=== PATIENT | male | born 1965 | race American Indian/Alaskan Native ===

== ENCOUNTER 2017-10-12 09:30 | Emergency (ER) | payer MEDICAID ==
[2017-10-12 10:31] VITALS: BP 119/79
[2017-10-12] MEDS ORDERED: ASPIRIN PO ONE (10:46)
[2017-10-12 11:12] LABS: Mean Corpuscular HGB Conc 30 % (32-34); Mean Corpuscular Volume 75 fl (84-94); Platelet Count 187 K/mm3 (140-440); Red Blood Count 4.84 M/mm3 (3.65-5.03); Red Cell Distribution Width 17.3 % (13.2-15.2)
[2017-10-12 11:20] LABS: Mean Corpuscular Hemoglobin 23 pg (28-32)
[2017-10-12 11:22] LABS: Hemoglobin 10.9 gm/dl (11.8-15.2)
[2017-10-12 11:23] LABS: BUN/Creatinine Ratio 4; Blood Urea Nitrogen 3 mg/dL (9-20); Hemolysis Index 15
--- NOTE | 2017-10-12 11:44 | XRay Report ---
ROUTINE CHEST, TWO VIEWS: HISTORY: chest pain. The trachea, heart, mediastinal contour, lung ramirez and bony thorax are unremarkable. IMPRESSION: Unremarkable chest x-ray.
[2017-10-12 12:11] LABS: Anisocytosis 1+; Hypochromasia 2+; Platelet Estimate Consistent w Auto; Total Cells Counted 100
== END 2017-10-12 11:28 | disposition left against medical advice (07) ==
LOC: ED 09:30
DX: R07.9 Chest pain, unspecified (principal); Z53.21 Procedure and treatment not carried out due to patient leaving prior to being seen by health care provider
CPT/HCPCS: 36415; 71046; 80048; 84484; 85007; 85025; 93005; 93010

== ENCOUNTER 2017-11-30 19:37 | Emergency (ER) | payer MEDICAID ==
[2017-11-30 20:29] VITALS: BP 149/87
[2017-11-30] MEDS ORDERED: ZOFRAN ODT PO ONE (21:30)
[2017-11-30 21:44] LABS: Basophils % (Auto) 0.7 % (0.0-1.8); Eosinophils % (Auto) 0.7 % (0.0-4.3); Lymphocytes # (Auto) 2.2 K/mm3 (1.2-5.4); Lymphocytes % (Auto) 31.6 % (13.4-35.0); Mean Corpuscular HGB Conc 30 % (32-34); Mean Corpuscular Volume 72 fl (84-94); Monocytes # (Auto) 0.7 K/mm3 (0.0-0.8); Platelet Count 366 K/mm3 (140-440); Red Blood Count 4.69 M/mm3 (3.65-5.03); Red Cell Distribution Width 19.4 % (13.2-15.2)
[2017-11-30 21:49] LABS: Hematocrit 33.6 % (35.5-45.6); Hemoglobin 10.1 gm/dl (11.8-15.2); Mean Corpuscular Hemoglobin 22 pg (28-32)
[2017-11-30 22:09] LABS: Alanine Aminotransferase 20 units/L (7-56); Albumin 3.4 g/dL (3.9-5); BUN/Creatinine Ratio 14; Blood Urea Nitrogen 10 mg/dL (9-20); Calcium 8.8 mg/dL (8.4-10.2); Hemolysis Index 1; Lipase 39 units/L (13-60)
[2017-12-01 00:41] LABS: Bilirubin,Urine NEG (Negative); Blood,Urine NEG (Negative); Calcium Oxalate Crystals,Urine 1+; Color,Urine Yellow (Yellow); Hyaline Casts,Urine 13 /LPF; Mucus,Urine FEW /HPF; Sperm,Urine FEW /HPF (NP); Urobilinogen,Urine < 2.0 mg/dL (<2.0)
[2017-12-01] MEDS ORDERED: ZOFRAN IV ONE (07:32)
[2017-12-01] MEDS ORDERED: PEPCID IV ONE (07:32)
[2017-12-01] MEDS ORDERED: BENTYL IM ONE (07:32)
[2017-12-01] MEDS ORDERED: NACL 0.9% 1000 ML 1,000 ML IV ONE (07:32)
[2017-12-01] MEDS ORDERED: TORADOL IV ONE (07:32)
--- NOTE | 2017-12-01 07:35 | Emergency Department Report ---
ED Abdominal Pain HPI - General Chief Complaint: Abdominal Pain Stated Complaint: ABD PAIN Time Seen by Provider: 12/01/17 07:28 Source: patient Mode of arrival: Ambulatory Limitations: No Limitations - History of Present Illness Initial Comments: Patient is a 51-year-old Latin male who presented with nausea vomiting and diarrhea. Patient states that he's had these symptoms for the past 2 days. Patient thinks he may have some bad. Patient states he is unable to keep anything down at this time. Patient has diffuse abdominal painas crampy and does have some radiation of his pain into the back. Patient states the pain is somewhat diffuse. Patient denies fever but does state that he is dizzy now when he stands. Location: diffuse Quality: cramping, aching Consistency: constant Associated Symptoms: nausea, vomiting, diarrhea. denies: fever, chills, constipation, dysuria, hematemesis, hematochezia, melena, hematuria, anorexia, syncope - Related Data Previous Rx's Medication Instructions Recorded Last Taken Type Dicyclomine [Bentyl] 10 mg PO QID #15 capsule 12/01/17 Unknown Rx Diphenoxylate/Atropine [Lomotil] 1 tab PO Q4H PRN #10 tablet 12/01/17 Unknown Rx Ondansetron [Zofran Odt] 4 mg PO Q8HR PRN #10 tab.rapdis 12/01/17 Unknown Rx Allergies Allergy/AdvReac Type Severity Reaction Status Date / Time Penicillins Allergy Hives Verified 10/12/17 10:26 ED Review of Systems ROS: Stated complaint: ABD PAIN Other details as noted in HPI Comment: All other systems reviewed and negative ED Past Medical Hx - Past Medical History Hx Hypertension: Yes Hx Diabetes: Yes Additional medical history: Umbillical hernia, colon polyps. colaspe lung - Surgical History Past Surgical History?: No Additional Surgical History: ankle right surgery, - Social History Smoking Status: Never Smoker - Medications Home Medications: Home Medications Medication Instructions Recorded Confirmed Last Taken Type Dicyclomine [Bentyl] 10 mg PO QID #15 capsule 12/01/17 Unknown Rx Diphenoxylate/Atropine [Lomotil] 1 tab PO Q4H PRN #10 tablet 12/01/17 Unknown Rx Ondansetron [Zofran Odt] 4 mg PO Q8HR PRN #10 tab.rapdis 12/01/17 Unknown Rx ED Physical Exam - General Limitations: No Limitations General appearance: alert, in no apparent distress - Head Head exam: Present: atraumatic, normocephalic - Eye Eye exam: Present: normal appearance - ENT ENT exam: Present: mucous membranes moist - Neck Neck exam: Present: normal inspection - Respiratory Respiratory exam: Present: normal lung sounds bilaterally. Absent: respiratory distress, wheezes, rales, rhonchi - Cardiovascular Cardiovascular Exam: Present: regular rate, normal rhythm. Absent: systolic murmur, diastolic murmur, rubs, gallop - GI/Abdominal GI/Abdominal exam: Present: soft, tenderness, normal bowel sounds. Absent: distended, guarding, rebound - Rectal Rectal exam: Present: deferred - Extremities Exam Extremities exam: Present: normal inspection - Back Exam Back exam: Present: normal inspection - Neurological Exam Neurological exam: Present: alert, oriented X3 - Psychiatric Psychiatric exam: Present: normal affect, normal mood - Skin Skin exam: Present: warm, dry, intact, normal color. Absent: rash ED Course Vital Signs 11/30/17 11/30/17 20:04 21:23 Temperature 99.0 F 99 F Pulse Rate 122 H 122 H Respiratory 18 Rate Blood Pressure 149/87 149/87 O2 Sat by Pulse 100 100 Oximetry ED Medical Decision Making - Lab Data Result diagrams: 11/30/17 21:34 11/30/17 21:34 - Medical Decision Making Patient received IV fluids nausea vomiting meds and was feeling better be discharged home. Critical care attestation.: If time is entered above; I have spent that time in minutes in the direct care of this critically ill patient, excluding procedure time. ED Disposition Clinical Impression: Gastroenteritis Disposition: DC-01 TO HOME OR SELFCARE Is pt being admited?: No Does the pt Need Aspirin: No Condition: Stable Instructions: Gastroenteritis (ED), Food Poisoning (ED) Referrals: PRIMARY CARE,MD [Primary Care Provider] - 3-5 Days
--- NOTE | 2017-12-01 08:26 | Cat Scan Report ---
CT ABDOMEN PELVIS WITH CONTRAST: HISTORY: Abdominal pain, nausea, vomiting, diarrhea. COMPARISON: none. TECHNIQUE: Helical CT in 1.25mm intervals following IV contrast. Sagittal and coronal reconstructions. FINDINGS: Lung bases: There is mild circumferential thickening of the distal esophagus which could represent a mild esophagitis. The visualized lung bases are well aerated. Normal heart size. Liver: Normal. Biliary system: Normal. Pancreas: Normal. Spleen: Normal. Kidneys/ureters/bladder: Normal. Adrenal glands: Normal. Aorta: Normal. Intestines: Within normal limits given no oral contrast was administered. Appendix: Normal. Ascites: None. Adenopathy: None. Musculoskeletal: The bony structures are intact with minimal degenerative changes. There has been previous ventral wall hernia repair. There appear to be 2 small recurrent hernias near midline on the superior border of the mesh which contain fat. IMPRESSION: No acute abdominal process identified. Mild thickening of the distal esophagus, consider esophagitis. Ventral wall hernias containing fat as described.
== END 2017-12-01 09:45 | disposition home or self-care (01) ==
LOC: ED 19:37
DX: K52.9 Noninfective gastroenteritis and colitis, unspecified (principal); I10 Essential (primary) hypertension; E11.9 Type 2 diabetes mellitus without complications
CPT/HCPCS: 36415; 74177; 80053; 81001; 82962; 83690; 85025; 96361; 96372; 96374; 96375; 99284; J0500; J1885; J2405; J7030; Q9967; Q0162

== ENCOUNTER 2017-12-02 22:54 | Emergency (ER) | payer MEDICAID ==
[2017-12-03 01:20] LABS: Basophils % (Auto) 0.5 % (0.0-1.8); Eosinophils % (Auto) 0.5 % (0.0-4.3); Hematocrit 33.4 % (35.5-45.6); Hemoglobin 10.3 gm/dl (11.8-15.2); Lymphocytes # (Auto) 1.1 K/mm3 (1.2-5.4); Lymphocytes % (Auto) 17.6 % (13.4-35.0); Mean Corpuscular HGB Conc 31 % (32-34); Mean Corpuscular Hemoglobin 22 pg (28-32); Mean Corpuscular Volume 71 fl (84-94); Monocytes # (Auto) 0.8 K/mm3 (0.0-0.8); Monocytes % (Auto) 13.2 % (0.0-7.3); Platelet Count 296 K/mm3 (140-440); Red Blood Count 4.69 M/mm3 (3.65-5.03); Red Cell Distribution Width 19.5 % (13.2-15.2)
[2017-12-03 01:47] LABS: Alanine Aminotransferase 26 units/L (7-56); Albumin 3.3 g/dL (3.9-5); BUN/Creatinine Ratio 12; Blood Urea Nitrogen 6 mg/dL (9-20); Calcium 8.9 mg/dL (8.4-10.2); Hemolysis Index 0
[2017-12-03] MEDS ORDERED: BENTYL IM ONE (03:22)
[2017-12-03] MEDS ORDERED: ZOFRAN IV ONE (03:22)
[2017-12-03] MEDS ORDERED: PEPCID IV ONE (03:22)
[2017-12-03] MEDS ORDERED: ALUM-MAG HYDROX-SIMETH 200-200-20MG/5ML PO ONE (03:22)
[2017-12-03] MEDS ORDERED: NACL 0.9% 1000 ML 1,000 ML IV ONE (03:22)
[2017-12-03 03:26] VITALS: BP 119/74
--- NOTE | 2017-12-03 05:33 | Emergency Department Report ---
ED N/V/D HPI - General Chief complaint: Abdominal Pain Stated complaint: ABD PAIN; H/O HERNIA Time Seen by Provider: 12/03/17 03:03 Source: patient Mode of arrival: Ambulatory Limitations: No Limitations - History of Present Illness Initial comments: Patient is a 51-year-old -[place] male who is homeless who is coming in because he's continued to have nausea vomiting diarrhea. Patient was here on with same symptoms. Patient had a CT scan at that time laboratory studies drawn that were within normal limits. The patient states he's continued to have nausea vomiting diarrhea and some crampy abdominal pain. Patient has no syncope cough congestion at this time. MD complaint: nausea, vomiting, diarrhea - Related Data Previous Rx's Medication Instructions Recorded Last Taken Type Dicyclomine [Bentyl] 10 mg PO QID #15 capsule 12/01/17 Unknown Rx Diphenoxylate/Atropine [Lomotil] 1 tab PO Q4H PRN #10 tablet 12/01/17 Unknown Rx Ondansetron [Zofran Odt] 4 mg PO Q8HR PRN #10 tab.rapdis 12/01/17 Unknown Rx Metoclopramide [Reglan] 10 mg PO TID #15 tab 12/03/17 Unknown Rx Allergies Allergy/AdvReac Type Severity Reaction Status Date / Time Penicillins Allergy Hives Verified 10/12/17 10:26 ED Review of Systems ROS: Stated complaint: ABD PAIN; H/O HERNIA Other details as noted in HPI Comment: All other systems reviewed and negative ED Past Medical Hx - Past Medical History Previous Medical History?: Yes Hx Hypertension: Yes Hx Diabetes: Yes Additional medical history: Umbillical hernia, colon polyps. colaspe lung - Surgical History Past Surgical History?: Yes Additional Surgical History: ankle right surgery, - Social History Smoking Status: Unknown if ever smoked Substance Use Type: None - Medications Home Medications: Home Medications Medication Instructions Recorded Confirmed Last Taken Type Dicyclomine [Bentyl] 10 mg PO QID #15 capsule 12/01/17 Unknown Rx Diphenoxylate/Atropine [Lomotil] 1 tab PO Q4H PRN #10 tablet 12/01/17 Unknown Rx Ondansetron [Zofran Odt] 4 mg PO Q8HR PRN #10 tab.rapdis 12/01/17 Unknown Rx Metoclopramide [Reglan] 10 mg PO TID #15 tab 12/03/17 Unknown Rx ED Physical Exam - General Limitations: No Limitations General appearance: alert, in no apparent distress - Head Head exam: Present: atraumatic, normocephalic - Eye Eye exam: Present: normal appearance - ENT ENT exam: Present: mucous membranes moist - Neck Neck exam: Present: normal inspection - Respiratory Respiratory exam: Present: normal lung sounds bilaterally. Absent: respiratory distress, wheezes, rales, rhonchi - Cardiovascular Cardiovascular Exam: Present: regular rate, normal rhythm. Absent: systolic murmur, diastolic murmur, rubs, gallop - GI/Abdominal GI/Abdominal exam: Present: soft, normal bowel sounds. Absent: distended, tenderness, guarding, rebound - Rectal Rectal exam: Present: deferred - Extremities Exam Extremities exam: Present: normal inspection - Back Exam Back exam: Present: normal inspection - Neurological Exam Neurological exam: Present: alert, oriented X3 - Psychiatric Psychiatric exam: Present: normal affect, normal mood - Skin Skin exam: Present: warm, dry, intact, normal color. Absent: rash ED Course Vital Signs 12/02/17 12/03/17 12/03/17 23:55 03:02 03:25 Temperature 99.5 F Pulse Rate 118 H 115 H Respiratory 18 16 16 Rate Blood Pressure 142/87 Blood Pressure 119/74 [Right] O2 Sat by Pulse 100 95 Oximetry ED Medical Decision Making - Lab Data Result diagrams: 12/03/17 00:27 12/03/17 00:27 - Medical Decision Making Patient was rehydrated given antiemetics which have made him feel better patient will be discharged home. Critical care attestation.: If time is entered above; I have spent that time in minutes in the direct care of this critically ill patient, excluding procedure time. ED Disposition Clinical Impression: Gastroenteritis Disposition: DC-01 TO HOME OR SELFCARE Is pt being admited?: No Does the pt Need Aspirin: No Condition: Stable Prescriptions: Metoclopramide [Reglan] 10 mg PO TID #15 tab Referrals: PRIMARY CARE, [Primary Care Provider] - 3-5 Days
== END 2017-12-03 05:45 | disposition home or self-care (01) ==
LOC: ED 22:54
DX: K52.9 Noninfective gastroenteritis and colitis, unspecified (principal); Z59.0 Homelessness; Z88.0 Allergy status to penicillin; I10 Essential (primary) hypertension; E11.9 Type 2 diabetes mellitus without complications
CPT/HCPCS: 36415; 80053; 85025; 96361; 96372; 96374; 96375; 99283; J0500; J2405; J7030

== ENCOUNTER 2017-12-18 08:59 | Emergency (ER) | payer MEDICAID ==
[2017-12-18 09:37] LABS: Basophils # (Auto) 0.1 K/mm3 (0.0-0.1); Basophils % (Auto) 0.8 % (0.0-1.8); Eosinophils % (Auto) 0.6 % (0.0-4.3); Hematocrit 31.7 % (35.5-45.6); Hemoglobin 9.8 gm/dl (11.8-15.2); Lymphocytes # (Auto) 1.7 K/mm3 (1.2-5.4); Lymphocytes % (Auto) 20.2 % (13.4-35.0); Mean Corpuscular HGB Conc 31 % (32-34); Mean Corpuscular Volume 71 fl (84-94); Monocytes # (Auto) 0.9 K/mm3 (0.0-0.8); Monocytes % (Auto) 11.1 % (0.0-7.3); Platelet Count 357 K/mm3 (140-440); Red Blood Count 4.44 M/mm3 (3.65-5.03)
[2017-12-18 09:38] LABS: Mean Corpuscular Hemoglobin 22 pg (28-32)
[2017-12-18 09:52] LABS: INR 1.05 (0.87-1.13)
[2017-12-18 09:53] LABS: Partial Thromboplastin Time 25.1 Sec. (24.2-36.6)
[2017-12-18 09:57] LABS: Alanine Aminotransferase 20 units/L (7-56); Albumin 3.2 g/dL (3.9-5); BUN/Creatinine Ratio 9; Blood Urea Nitrogen 6 mg/dL (9-20); Calcium 8.2 mg/dL (8.4-10.2); Hemolysis Index 3; Lipase 142 units/L (13-60)
[2017-12-18] MEDS ORDERED: NACL 0.9% 1000 ML 1,000 ML ONE (10:17)
[2017-12-18] MEDS ORDERED: PEPCID IV ONE ×2 (10:18→10:19)
[2017-12-18] MEDS ORDERED: ZOFRAN ONE (10:18)
[2017-12-18] MEDS ORDERED: NACL 0.9% 1000 ML 1,000 ML IV ONE (10:19)
[2017-12-18] MEDS ORDERED: ZOFRAN IV ONE (10:19)
--- NOTE | 2017-12-18 10:24 | Emergency Department Report ---
ED N/V/D HPI - General Chief complaint: Abdominal Pain Stated complaint: CHEST PAIN Time Seen by Provider: 12/18/17 10:06 Source: patient Mode of arrival: Wheelchair Limitations: No Limitations - History of Present Illness Initial comments: Patient is a 52-year-old male with a past history of alcohol abuse and homelessness is presenting for the fourth time within the last 2 months for epigastric discomfort. Patient states he has continued to drink heavy amounts of alcohol. Patient does not have any plans of stopping. Patient states he's vomited multiple times this morning. Patient states he has a burning sensation in the epigastrium with some radiation into the mid chest that he states is a 6 out of 10 in severity. The patient denies any fevers cough congestion and diarrhea hematochezia at this time. - Related Data Previous Rx's Medication Instructions Recorded Last Taken Type Dicyclomine [Bentyl] 10 mg PO QID #15 capsule 12/01/17 Unknown Rx Diphenoxylate/Atropine [Lomotil] 1 tab PO Q4H PRN #10 tablet 12/01/17 Unknown Rx Ondansetron [Zofran Odt] 4 mg PO Q8HR PRN #10 tab.rapdis 12/01/17 Unknown Rx Metoclopramide [Reglan] 10 mg PO TID #15 tab 12/03/17 Unknown Rx Famotidine [Pepcid] 40 mg PO QHS #20 tablet 12/18/17 Unknown Rx Ondansetron [Zofran Odt] 4 mg PO Q8HR PRN #10 tab.rapdis 12/18/17 Unknown Rx Allergies Allergy/AdvReac Type Severity Reaction Status Date / Time Penicillins Allergy Hives Verified 12/18/17 09:10 ED Review of Systems ROS: Stated complaint: CHEST PAIN Other details as noted in HPI Comment: All other systems reviewed and negative ED Past Medical Hx - Past Medical History Hx Hypertension: Yes Hx Diabetes: Yes Additional medical history: Umbillical hernia, colon polyps. colaspe lung/ CIRRHOIS - Surgical History Additional Surgical History: ankle right surgery, - Social History Smoking Status: Never Smoker Substance Use Type: Alcohol - Medications Home Medications: Home Medications Medication Instructions Recorded Confirmed Last Taken Type Dicyclomine [Bentyl] 10 mg PO QID #15 capsule 12/01/17 Unknown Rx Diphenoxylate/Atropine [Lomotil] 1 tab PO Q4H PRN #10 tablet 12/01/17 Unknown Rx Ondansetron [Zofran Odt] 4 mg PO Q8HR PRN #10 tab.rapdis 12/01/17 Unknown Rx Metoclopramide [Reglan] 10 mg PO TID #15 tab 12/03/17 Unknown Rx Famotidine [Pepcid] 40 mg PO QHS #20 tablet 12/18/17 Unknown Rx Ondansetron [Zofran Odt] 4 mg PO Q8HR PRN #10 tab.rapdis 12/18/17 Unknown Rx ED Physical Exam - General Limitations: No Limitations General appearance: alert, in no apparent distress - Head Head exam: Present: atraumatic, normocephalic - Eye Eye exam: Present: normal appearance - ENT ENT exam: Present: mucous membranes moist - Neck Neck exam: Present: normal inspection - Respiratory Respiratory exam: Present: normal lung sounds bilaterally. Absent: respiratory distress, wheezes, rales, rhonchi - Cardiovascular Cardiovascular Exam: Present: regular rate, normal rhythm. Absent: systolic murmur, diastolic murmur, rubs, gallop - GI/Abdominal GI/Abdominal exam: Present: soft, tenderness (mild tenderness in the epigastrium ), normal bowel sounds. Absent: distended, guarding, rebound, rigid - Rectal Rectal exam: Present: deferred - Extremities Exam Extremities exam: Present: normal inspection - Back Exam Back exam: Present: normal inspection - Neurological Exam Neurological exam: Present: alert, oriented X3 - Psychiatric Psychiatric exam: Present: normal affect, normal mood - Skin Skin exam: Present: warm, dry, intact, normal color. Absent: rash ED Course Vital Signs 12/18/17 12/18/17 09:11 10:04 Temperature 98.3 F Pulse Rate 106 H Respiratory 18 18 Rate Blood Pressure 109/76 O2 Sat by Pulse 97 18 L Oximetry ED Medical Decision Making - Lab Data Result diagrams: 12/18/17 09:19 12/18/17 09:24 Lab Results 12/18/17 12/18/17 12/18/17 Range/Units 09:19 09:24 09:24 WBC 8.2 (4.5-11.0) K/mm3 RBC 4.44 (3.65-5.03) M/mm3 Hgb 9.8 L (11.8-15.2) gm/dl Hct 31.7 L (35.5-45.6) % MCV 71 L (84-94) fl MCH 22 L (28-32) pg MCHC 31 L (32-34) % RDW 20.0 H (13.2-15.2) % Plt Count 357 (140-440) K/mm3 Lymph % (Auto) 20.2 (13.4-35.0) % Nelson % (Auto) 11.1 H (0.0-7.3) % Eos % (Auto) 0.6 (0.0-4.3) % Baso % (Auto) 0.8 (0.0-1.8) % Lymph # 1.7 (1.2-5.4) K/mm3 Nelson # 0.9 H (0.0-0.8) K/mm3 Eos # 0.0 (0.0-0.4) K/mm3 Baso # 0.1 (0.0-0.1) K/mm3 Seg Neutrophils % 67.3 (40.0-70.0) % Seg Neutrophils # 5.5 (1.8-7.7) K/mm3 PT 14.2 (12.2-14.9) Sec. INR 1.05 (0.87-1.13) APTT 25.1 (24.2-36.6) Sec. Sodium 138 (137-145) mmol/L Potassium 3.2 L (3.6-5.0) mmol/L Chloride 97.8 L (98-107) mmol/L Carbon Dioxide 22 (22-30) mmol/L Anion Gap 21 mmol/L BUN 6 L (9-20) mg/dL Creatinine 0.7 L (0.8-1.5) mg/dL Estimated GFR > 60 ml/min BUN/Creatinine Ratio 9 % Glucose 126 H (75-100) mg/dL Calcium 8.2 L (8.4-10.2) mg/dL Total Bilirubin 0.20 (0.1-1.2) mg/dL AST 27 (5-40) units/L ALT 20 (7-56) units/L Alkaline Phosphatase 105 (35-129) units/L Troponin T < 0.010 (0.00-0.029) ng/mL Total Protein 6.5 (6.3-8.2) g/dL Albumin 3.2 L (3.9-5) g/dL Albumin/Globulin Ratio 1.0 % Lipase 142 H (13-60) units/L - Medical Decision Making Patient is a 52-year-old black male was presented with nausea vomiting. Patient has mild epigastric tenderness. Patient's laboratory studies are within the range that he has been for the last several visits. Patient admits to heavy alcohol abuse. Patient most likely has alcoholic gastritis. Patient was given IV fluids Pepcid and Zofran and will be discharged home. Critical care attestation.: If time is entered above; I have spent that time in minutes in the direct care of this critically ill patient, excluding procedure time. ED Disposition Clinical Impression: Alcoholic gastritis Qualifiers: Chronicity: chronic Gastritis bleeding: presence of bleeding unspecified Qualified Code(s): K29.20 - Alcoholic gastritis without bleeding Disposition: DC-01 TO HOME OR SELFCARE Is pt being admited?: No Does the pt Need Aspirin: No Condition: Stable Instructions: Gastritis (ED), Abuse of Alcohol (ED) Prescriptions: Famotidine [Pepcid] 40 mg PO QHS #20 tablet Ondansetron [Zofran Odt] 4 mg PO Q8HR PRN #10 tab.rapdis PRN Reason: Nausea And Vomiting Referrals: PRIMARY CARE, [Primary Care Provider] - 3-5 Days
[2017-12-18 10:29] LABS: Bilirubin,Urine NEG (Negative); Blood,Urine NEG (Negative); Color,Urine Yellow (Yellow); Mucus,Urine FEW /HPF; Protein,Urine <15 mg/dL mg/dL (Negative); Urobilinogen,Urine < 2.0 mg/dL (<2.0)
[2017-12-18 13:21] VITALS: BP 128/76
== END 2017-12-18 13:21 | disposition home or self-care (01) ==
LOC: ED 08:59
DX: K29.20 Alcoholic gastritis without bleeding (principal); I10 Essential (primary) hypertension; E11.9 Type 2 diabetes mellitus without complications
CPT/HCPCS: 36415; 80053; 81001; 83690; 84484; 85025; 85610; 85730; 93005; 93010; 96361; 96374; 96375; 99284; J2405; J7030

== ENCOUNTER 2017-12-24 13:42 | Emergency (ER) | payer MEDICAID ==
[2017-12-24 15:00] LABS: Basophils # (Auto) 0.1 K/mm3 (0.0-0.1); Basophils % (Auto) 1.3 % (0.0-1.8); Eosinophils % (Auto) 0.6 % (0.0-4.3); Lymphocytes # (Auto) 2.3 K/mm3 (1.2-5.4); Lymphocytes % (Auto) 33.3 % (13.4-35.0); Mean Corpuscular HGB Conc 30 % (32-34); Mean Corpuscular Volume 72 fl (84-94); Monocytes # (Auto) 0.9 K/mm3 (0.0-0.8); Monocytes % (Auto) 12.7 % (0.0-7.3); Platelet Count 424 K/mm3 (140-440); Red Blood Count 4.84 M/mm3 (3.65-5.03)
[2017-12-24 15:02] LABS: Hemoglobin 10.5 gm/dl (11.8-15.2); Mean Corpuscular Hemoglobin 22 pg (28-32); Red Cell Distribution Width 20.1 % (13.2-15.2)
[2017-12-24 15:16] LABS: Alanine Aminotransferase 13 units/L (7-56); Albumin 3.5 g/dL (3.9-5); BUN/Creatinine Ratio 6; Blood Urea Nitrogen 5 mg/dL (9-20); Calcium 8.1 mg/dL (8.4-10.2); Hemolysis Index 5; Lipase 14 units/L (13-60)
[2017-12-24 16:08] LABS: Amorphous Crystals,Urine Few; Bacteria,Urine 1+ /HPF (Negative); Bilirubin,Urine NEG (Negative); Blood,Urine NEG (Negative); Color,Urine Yellow (Yellow); Protein,Urine <15 mg/dL mg/dL (Negative); Urobilinogen,Urine < 2.0 mg/dL (<2.0)
[2017-12-24] MEDS ORDERED: VITAMIN B-1 100 MG, FOLVITE 1 MG, INFUVITE 10 ML in NACL 0.9% 1000 ML 1,000 ML IV ONE (16:22)
[2017-12-24] MEDS ORDERED: ZOFRAN IV ONE (16:59)
[2017-12-24] MEDS ORDERED: TORADOL IV ONE (16:59)
[2017-12-24] MEDS ORDERED: K-DUR PO ONE (17:04)
--- NOTE | 2017-12-24 17:09 | Emergency Department Report ---
HPI - General Chief Complaint: Abdominal Pain Time Seen by Provider: 12/24/17 16:06 - HPI HPI: 52-year-old [place] female presents to the emergency department by EMS with complaint of some upper abdominal pain for 2 days with some nausea, vomiting and diarrhea. Sometimes he says that the discomfort feels like it goes into the chest. Patient admits to history of alcohol abuse and current intoxication. He also has a history of diabetes, hypertension. He has a history of previous umbilical hernia and/or ventral hernia repair, cirrhosis, recurrent pancreatitis and some colon polyps. He did not take anything for her symptoms upon presentation. He does not have a primary care physician. Recent travel or sick contacts at home. ED Past Medical Hx - Past Medical History Hx Hypertension: Yes Hx Diabetes: Yes Additional medical history: Umbillical hernia, colon polyps. colaspe lung/ CIRRHOIS, pancreatitis - Surgical History Additional Surgical History: ankle right surgery, - Social History Smoking Status: Never Smoker Substance Use Type: Alcohol - Medications Home Medications: Home Medications Medication Instructions Recorded Confirmed Last Taken Type Dicyclomine [Bentyl] 10 mg PO QID #15 capsule 12/01/17 Unknown Rx Diphenoxylate/Atropine [Lomotil] 1 tab PO Q4H PRN #10 tablet 12/01/17 Unknown Rx Ondansetron [Zofran Odt] 4 mg PO Q8HR PRN #10 tab.rapdis 12/01/17 Unknown Rx Metoclopramide [Reglan] 10 mg PO TID #15 tab 12/03/17 Unknown Rx Famotidine [Pepcid] 40 mg PO QHS #20 tablet 12/18/17 Unknown Rx Ondansetron [Zofran Odt] 4 mg PO Q8HR PRN #10 tab.rapdis 12/18/17 Unknown Rx Omeprazole Magnesium [PriLOSEC Otc] 20 mg PO BID #20 tab 12/25/17 Unknown Rx ED Review of Systems ROS: Stated complaint: CHEST PAIN Other details as noted in HPI Comment: All other systems reviewed and negative Constitutional: denies: chills, fever Eyes: denies: eye pain, eye discharge, vision change ENT: denies: ear pain, throat pain Respiratory: denies: cough, shortness of breath, wheezing Cardiovascular: chest pain. denies: palpitations Gastrointestinal: abdominal pain, nausea, vomiting, diarrhea Genitourinary: denies: urgency, dysuria Musculoskeletal: denies: back pain, arthralgia Skin: denies: rash, lesions Neurological: denies: headache, weakness, paresthesias Physical Exam - Physical Exam Vital Signs: Vital Signs 12/24/17 12/24/17 14:16 15:07 Temperature 98.4 F Pulse Rate 104 H Respiratory 15 16 Rate Blood Pressure 121/65 O2 Sat by Pulse 96 Oximetry Physical Exam: GENERAL: The patient is well-developed well-nourished. HENT: Normocephalic. Atraumatic. Patient has moist mucous membranes. EYES: Extraocular motions are intact. Pupils equal reactive to light bilaterally. NECK: Supple. Trachea is midline. CHEST/LUNGS: Clear to auscultation. There is no respiratory distress noted. HEART/CARDIOVASCULAR: Regular. There is no tachycardia. There is no murmur. ABDOMEN: Abdomen is soft. Mild upper abdominal tenderness to palpation. No guarding. Patient has normal bowel sounds. There is no abdominal distention. SKIN: Skin is warm and dry. NEURO: The patient is awake, alert patient does appear intoxicated. The patient is cooperative. The patient has no focal neurologic deficits. Cranial nerves II through XII grossly intact. MUSCULOSKELETAL: There is no tenderness or deformity. There is no limitation range of motion. There is no evidence of acute injury. ED Course Vital Signs 12/24/17 12/24/17 14:16 15:07 Temperature 98.4 F Pulse Rate 104 H Respiratory 15 16 Rate Blood Pressure 121/65 O2 Sat by Pulse 96 Oximetry ED Medical Decision Making - Lab Data Result diagrams: 12/24/17 Unknown 12/24/17 Unknown - EKG Data -: EKG Interpreted by Mi EKG shows normal: sinus rhythm, axis, intervals, QRS complexes, ST-T waves ( flattening of T waves) Rate: normal - EKG Data When compared to previous EKG there are: previous EKG unavailable Interpretation: other (sinus rhythm, normal axis, flattening of T waves, no ST elevation NV) - Radiology Data Radiology results: report reviewed PROCEDURE: US ABDOMEN LIMITED TECHNIQUE: Real-time sonography was performed of the right upper quadrant with image documentation. CPT 86645 HISTORY: Upper abd pain COMPARISON: No prior studies are available for comparison. FINDINGS: Today's study is limited. The patient was unable to cooperate with the exam. Liver echogenicity appears mildly diffusely increased consistent with fatty infiltration. No discrete liver lesions are seen. The intrahepatic ducts are not distended. No ascites is visualized. Gallbladder showed no focal abnormality. Right kidney is unremarkable measuring 10.7 centimeters greatest length.. Common bile duct is normal caliber measuring 3.7 millimeters. Pancreas is poorly visualized and cannot be accurately commented on. IMPRESSION: Fatty infiltration the liver. No other abnormalities are seen. Today 's study is limited as described. Dictated By: JANE ABRAMS MD Electronically Authenticated By: JANE ABRAMS MD Signed Date/Time: 12/24/17 505 PROCEDURE: CT ABDOMEN PELVIS W CON TECHNIQUE: Computerized axial tomography of the abdomen and pelvis was performed after the IV injection of iodinated nonionic contrast. HISTORY: abd pain COMPARISON: No prior studies are available for comparison. FINDINGS: Lower Lung marroquin: There is a small amount of dependent atelectasis. Lung bases otherwise are unremarkable. Upper Abdomen: The liver, the gallbladder , adrenal glands, the pancreas and the spleen are unremarkable. Kidneys, Ureters and Urinary bladder: No abnormalities are seen. Retroperitoneum: There is mild tortuosity of the abdominal aorta, mild atherosclerotic change, abdominal aorta is otherwise unremarkable. No aneurysm is seen. Nonspecific subcentimeter lymph nodes are seen in the retroperitoneum. No pathologically enlarged lymph nodes are identified. Bowel: No focal abnormalities are identified. No evidence of bowel obstruction ascites or free intraperitoneal gas. Normal-appearing appendix is seen in the right lower quadrant. Moderate- sized anterior abdominal hernia with 2 orifice visualized next each other seen on axial image 195 series 2 containing adipose tissue. This is located approximately 5 centimeters superior to the umbilicus. No herniated loops of bowel are seen. Reproductive organs: Prostate gland does not appear to be significantly enlarged. Other: No acute bony abnormalities are seen. IMPRESSION: Anterior abdominal hernia visualized in the midline containing adipose tissue as described. Please see above comments. No acute abnormalities are identified. Dictated By: JANE ABRAMS MD Electronically Authenticated By: JANE ABRAMS MD Signed Date/Time: 12/24/172054 PROCEDURE: CT ANGIO CHEST TECHNIQUE: Computerized tomographic angiography of the chest was performed during the IV injection of iodinated nonionic contrast including image processing. The image data was postprocessed using 2- dimensional multiplanar reformatted (MPR) and 3-dimensional (MIP and/or volume rendered) techniques. HISTORY: Chest pain. Evaluate pulmonary embolus COMPARISON: No prior studies are available for comparison. FINDINGS: Pulmonary outflow tract, right and left main pulmonary arteries and their proximal branches: The pulmonary outflow tract right and left main pulmonary arteries are clear. Peripheral branches are suboptimally visualized due to breathing motion artifact and beam hardening artifact. No definite filling defects are seen that would suggest pulmonary embolus. Pericardium: No evidence of pericardial effusion. Thoracic aorta: No evidence of aneurysmal dilatation or dissection. Coronary arteries: Are unremarkable. Mediastinum and hilar regions: Nonspecific subcentimeter lymph nodes are visualized. No pathologically enlarged lymph nodes or masses are identified. The moe of the distal esophagus are more prominent or thicker than expected. This could be an artifact from peristalsis. I cannot exclude inflammatory change from esophageal Emani sore even a mass. This is visualized on images 62 through 78 series 2 axial images. Lung Marroquin: Dependent atelectasis visualized. Lungs otherwise are clear. Upper abdomen: No acute abnormalities are identified. Other: No acute bony abnormalities are seen. IMPRESSION: No evidence of pulmonary embolus. No evidence of aortic aneurysm or dissection. Small amount of dependent atelectasis visualized. Moe of the distal esophagus are prominent or thicker than expected. This could be an artifact from peristalsis. I cannot exclude esophagitis or even a mass. Consider follow-up esophagram for further evaluation. Dictated By: JANE ABRAMS MD Electronically Authenticated By: JANE ABRAMS MD Signed Date/Time: 12/24/17 265 - Medical Decision Making Patient came in intoxicated from alcohol with a blood alcohol level of 0.3. Some complaints of upper abdominal pain with some radiation towards the chest. His labs, besides the alcohol, were mostly unremarkable including negative troponins 2. The patient had CT angiography of the chest that did not show any dissection or pulmonary emboli. It did show something towards the distal esophagus that could've been from patient's movement but also could be some esophagitis versus mass. CT of the abdomen and pelvis did not show any acute process or any etiology of his symptoms. He was given IV fluid, thiamine, multivitamins and eventually his blood alcohol level came down to about 0.09. He would be legally sober shortly after this and that is when he was discharged home. He was sent home with a PPI and referral for gastroenterology. We discussed staying away from any further alcohol abuse. He will return to the ER with any worsening of symptoms or any acute distress. - Differential Diagnosis alcohol intoxication, esophagitis, gastritis, PE Critical Care Time: No Critical care attestation.: If time is entered above; I have spent that time in minutes in the direct care of this critically ill patient, excluding procedure time. ED Disposition Clinical Impression: Alcohol abuse Alcoholic gastritis Qualifiers: Chronicity: unspecified Gastritis bleeding: without bleeding Qualified Code(s) : K29.20 - Alcoholic gastritis without bleeding Alcohol intoxication Qualifiers: Complication of substance-induced condition: uncomplicated Qualified Code(s): F10.920 - Alcohol use, unspecified with intoxication, uncomplicated Abdominal pain Qualifiers: Abdominal location: upper abdomen, unspecified Qualified Code(s): R10.10 - Upper abdominal pain, unspecified Ventral hernia Qualifiers: Obstruction and gangrene presence: without obstruction or gangrene Qualified Code(s): K43.9 - Ventral hernia without obstruction or gangrene Disposition: TO HOME OR SELFCARE Is pt being admited?: No Condition: Stable Instructions: Gastritis (ED), Alcohol Intoxication (ED), Abuse of Alcohol (ED) , Ventral Hernia (ED), Abdominal Pain (ED) Additional Instructions: Please follow up with a primary care physician in the next few days. Please quit drinking/abusing alcohol. I have given you a referral for a local access tech, Dr. Garsia, to follow up regarding her abdominal pain, gastritis, and possible esophagitis. I have also given you a referral for a local general surgeon, Dr. Shankar, to follow up regarding your fat filled anterior abdominal hernia. Return to the emergency Department with any worsening of your symptoms or any acute distress. Prescriptions: Omeprazole Magnesium [PriLOSEC Otc] 20 mg PO BID #20 tab Referrals: PRIMARY CAREMD [Primary Care Provider] - 3-5 Days EVER GARSIA MD [Staff Physician] - 3-5 Days CARMEN SHANKAR DO [Staff Physician] - 3-5 Days JOSIE BRUCE MD [Staff Physician] - 3-5 Days [facility] [Outside] - 3-5 Days Time of Disposition: 01:44
--- NOTE | 2017-12-24 18:34 | Ultrasound Report ---
FINAL REPORT PROCEDURE: US ABDOMEN LIMITED TECHNIQUE: Real-time sonography was performed of the right upper quadrant with image documentation. CPT 16202 HISTORY: Upper abd pain COMPARISON: No prior studies are available for comparison. FINDINGS: Today's study is limited. The patient was unable to cooperate with the exam. Liver echogenicity appears mildly diffusely increased consistent with fatty infiltration. No discrete liver lesions are seen. The intrahepatic ducts are not distended. No ascites is visualized. Gallbladder showed no focal abnormality. Right kidney is unremarkable measuring 10.7 centimeters greatest length.. Common bile duct is normal caliber measuring 3.7 millimeters. Pancreas is poorly visualized and cannot be accurately commented on. IMPRESSION: Fatty infiltration the liver. No other abnormalities are seen. Today's study is limited as described.
--- NOTE | 2017-12-24 19:24 | XRay Report ---
FINAL REPORT PROCEDURE: Portable supine and upright abdomen and AP chest x-ray TECHNIQUE: Abdominal series complete, including supine and upright AP views of the abdomen and frontal chest. HISTORY: CP, Abd pain COMPARISON: No prior studies are available for comparison. FINDINGS: The heart is enlarged. Pulmonary vasculature not significantly distended. Minimal patchy density present in the lung bases suggesting minimal atelectasis. No dense consolidations effusions or pneumothorax identified. No acute bony abnormalities are identified. Nonspecific bowel gas pattern. No evidence for obstruction. No abnormal masses are seen. Calcifications seen lower pelvis suggesting phleboliths.. IMPRESSION: Cardiomegaly. Minimal basilar atelectasis. No other abnormalities are seen..
--- NOTE | 2017-12-24 20:58 | Cat Scan Report ---
FINAL REPORT PROCEDURE: CT ABDOMEN PELVIS W CON TECHNIQUE: Computerized axial tomography of the abdomen and pelvis was performed after the IV injection of iodinated nonionic contrast. HISTORY: abd pain COMPARISON: No prior studies are available for comparison. FINDINGS: Lower Lung ramirez: There is a small amount of dependent atelectasis. Lung bases otherwise are unremarkable. Upper Abdomen: The liver, the gallbladder, adrenal glands, the pancreas and the spleen are unremarkable. Kidneys, Ureters and Urinary bladder: No abnormalities are seen. Retroperitoneum: There is mild tortuosity of the abdominal aorta, mild atherosclerotic change, abdominal aorta is otherwise unremarkable. No aneurysm is seen. Nonspecific subcentimeter lymph nodes are seen in the retroperitoneum. No pathologically enlarged lymph nodes are identified. Bowel: No focal abnormalities are identified. No evidence of bowel obstruction ascites or free intraperitoneal gas. Normal-appearing appendix is seen in the right lower quadrant. Moderate-sized anterior abdominal hernia with 2 orifice visualized next each other seen on axial image 195 series 2 containing adipose tissue. This is located approximately 5 centimeters superior to the umbilicus. No herniated loops of bowel are seen. Reproductive organs: Prostate gland does not appear to be significantly enlarged. Other: No acute bony abnormalities are seen. IMPRESSION: Anterior abdominal hernia visualized in the midline containing adipose tissue as described. Please see above comments. No acute abnormalities are identified.
--- NOTE | 2017-12-24 21:09 | Cat Scan Report ---
FINAL REPORT PROCEDURE: CT ANGIO CHEST TECHNIQUE: Computerized tomographic angiography of the chest was performed during the IV injection of iodinated nonionic contrast including image processing. The image data was postprocessed using 2-dimensional multiplanar reformatted (MPR) and 3-dimensional (MIP and/or volume rendered) techniques. HISTORY: Chest pain. Evaluate pulmonary embolus COMPARISON: No prior studies are available for comparison. FINDINGS: Pulmonary outflow tract, right and left main pulmonary arteries and their proximal branches: The pulmonary outflow tract right and left main pulmonary arteries are clear. Peripheral branches are suboptimally visualized due to breathing motion artifact and beam hardening artifact. No definite filling defects are seen that would suggest pulmonary embolus. Pericardium: No evidence of pericardial effusion. Thoracic aorta: No evidence of aneurysmal dilatation or dissection. Coronary arteries: Are unremarkable. Mediastinum and hilar regions: Nonspecific subcentimeter lymph nodes are visualized. No pathologically enlarged lymph nodes or masses are identified. The moe of the distal esophagus are more prominent or thicker than expected. This could be an artifact from peristalsis. I cannot exclude inflammatory change from esophageal Emani sore even a mass. This is visualized on images 62 through 78 series 2 axial images. Lung Marroquin: Dependent atelectasis visualized. Lungs otherwise are clear. Upper abdomen: No acute abnormalities are identified. Other: No acute bony abnormalities are seen. IMPRESSION: No evidence of pulmonary embolus. No evidence of aortic aneurysm or dissection. Small amount of dependent atelectasis visualized. Moe of the distal esophagus are prominent or thicker than expected. This could be an artifact from peristalsis. I cannot exclude esophagitis or even a mass. Consider follow-up esophagram for further evaluation.
[2017-12-25] MEDS ORDERED: PEPCID IV ONE (00:13)
[2017-12-25] MEDS ORDERED: NACL 0.9% 1000 ML 1,000 ML IV ONE (00:13)
[2017-12-25 03:36] VITALS: BP 129/85
== END 2017-12-25 04:51 | disposition home or self-care (01) ==
LOC: ED 13:42
DX: K43.9 Ventral hernia without obstruction or gangrene (principal); K29.20 Alcoholic gastritis without bleeding; F10.129 Alcohol abuse with intoxication, unspecified; E11.9 Type 2 diabetes mellitus without complications; I10 Essential (primary) hypertension
CPT/HCPCS: 36415; 71275; 74022; 74177; 76705; 80053; 81001; 83690; 84484; 85025; 93005; 93010; 96361; 96365; 96366; 96375; 99285; G0480; J1885; J2405; J3411; J7030; Q9967; 80320

== ENCOUNTER 2018-01-08 18:36 | Emergency (ER) | payer MEDICAID ==
[2018-01-08] MEDS ORDERED: TORADOL IV ONE (18:57)
[2018-01-08] MEDS ORDERED: NACL 0.9% 1000 ML 1,000 ML IV ONE (18:57)
[2018-01-08 19:41] LABS: Basophils % (Auto) 0.8 % (0.0-1.8); Eosinophils % (Auto) 0.5 % (0.0-4.3); Hematocrit 31.9 % (35.5-45.6); Hemoglobin 9.9 gm/dl (11.8-15.2); Lymphocytes # (Auto) 1.1 K/mm3 (1.2-5.4); Lymphocytes % (Auto) 20.6 % (13.4-35.0); Mean Corpuscular HGB Conc 31 % (32-34); Mean Corpuscular Hemoglobin 22 pg (28-32); Mean Corpuscular Volume 70 fl (84-94); Monocytes # (Auto) 0.6 K/mm3 (0.0-0.8); Monocytes % (Auto) 11.8 % (0.0-7.3); Platelet Count 243 K/mm3 (140-440); Red Blood Count 4.56 M/mm3 (3.65-5.03); Red Cell Distribution Width 19.7 % (13.2-15.2)
--- NOTE | 2018-01-08 19:48 | Ultrasound Report ---
FINAL REPORT PROCEDURE: Limited abdominal ultrasound. TECHNIQUE: Real-time sonography was performed of the right upper quadrant of the abdomen with image documentation. CPT 27930 HISTORY: Right upper quadrant abdominal pain, history of pancreatitis. COMPARISON: Abdominal ultrasound 12/24/2017. FINDINGS: Image quality is limited by the patient's obesity. The echogenicity of the liver is probably increased. This suggests fatty metamorphosis. There are no definite focal masses identified. The proximal portion of the abdominal aorta has a normal caliber. The inferior vena cava is not adequately visualized. The right kidney appears normal in size and has normal echogenicity. The gallbladder is well distended with normal wall thickness. There are no gallstones. The common bile duct measures 3.7 millimeters. The portal vein was not evaluated. The pancreas was not imaged. 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 Limited study.
[2018-01-08 19:53] LABS: Alanine Aminotransferase 13 units/L (7-56); Albumin 3.5 g/dL (3.9-5); BUN/Creatinine Ratio 7; Blood Urea Nitrogen 4 mg/dL (9-20); Calcium 8.6 mg/dL (8.4-10.2); Hemolysis Index 5; Lipase 12 units/L (13-60)
[2018-01-08 20:05] LABS: Bilirubin,Direct < 0.2 mg/dL (0-0.2)
[2018-01-08] MEDS ORDERED: K-DUR PO ONE (20:14)
[2018-01-08] MEDS ORDERED: NORCO 5/325 PO ONE (20:14)
--- NOTE | 2018-01-08 20:18 | Emergency Department Report ---
ED Abdominal Pain HPI - General Chief Complaint: Abdominal Pain Stated Complaint: CHEST PAIN Time Seen by Provider: 01/08/18 18:57 Source: patient, EMS Mode of arrival: Stretcher Limitations: No Limitations - History of Present Illness Initial Comments: Patient is a heavy alcohol drinker. His last drink was last night. Earlier today, patient developed epigastric abdominal pain. It radiated up into his chest. Since her constant. Associated with nausea and vomiting. Patient believes that is related to his drinking. No shortness of breath. Due to the fact that he feels dehydrated and in pain, he came to the ER. Has had alcohol withdrawal symptoms before, but never has had seizures. Severity scale (0 -10): 8 - Related Data Previous Rx's Medication Instructions Recorded Last Taken Type Dicyclomine [Bentyl] 10 mg PO QID #15 capsule 12/01/17 Unknown Rx Diphenoxylate/Atropine [Lomotil] 1 tab PO Q4H PRN #10 tablet 12/01/17 Unknown Rx Ondansetron [Zofran Odt] 4 mg PO Q8HR PRN #10 tab.rapdis 12/01/17 Unknown Rx Metoclopramide [Reglan] 10 mg PO TID #15 tab 12/03/17 Unknown Rx Famotidine [Pepcid] 40 mg PO QHS #20 tablet 12/18/17 Unknown Rx Ondansetron [Zofran Odt] 4 mg PO Q8HR PRN #10 tab.rapdis 12/18/17 Unknown Rx Omeprazole Magnesium [PriLOSEC Otc] 20 mg PO BID #20 tab 12/25/17 Unknown Rx Ondansetron [Zofran TAB] 4 mg PO Q8HR PRN #10 tablet 01/08/18 Unknown Rx Allergies Allergy/AdvReac Type Severity Reaction Status Date / Time Penicillins Allergy Hives Verified 12/18/17 09:10 ED Review of Systems ROS: Stated complaint: CHEST PAIN Other details as noted in HPI Comment: All other systems reviewed and negative Cardiovascular: chest pain Gastrointestinal: abdominal pain, nausea, vomiting ED Past Medical Hx - Past Medical History Previous Medical History?: Yes Hx Hypertension: Yes Hx Diabetes: Yes Additional medical history: Umbillical hernia, colon polyps. colaspe lung/ CIRRHOIS, pancreatitis, ETOH abuse - Surgical History Past Surgical History?: Yes Additional Surgical History: ankle right surgery, - Social History Smoking Status: Never Smoker Substance Use Type: Alcohol - Medications Home Medications: Home Medications Medication Instructions Recorded Confirmed Last Taken Type Dicyclomine [Bentyl] 10 mg PO QID #15 capsule 12/01/17 Unknown Rx Diphenoxylate/Atropine [Lomotil] 1 tab PO Q4H PRN #10 tablet 12/01/17 Unknown Rx Ondansetron [Zofran Odt] 4 mg PO Q8HR PRN #10 tab.rapdis 12/01/17 Unknown Rx Metoclopramide [Reglan] 10 mg PO TID #15 tab 12/03/17 Unknown Rx Famotidine [Pepcid] 40 mg PO QHS #20 tablet 12/18/17 Unknown Rx Ondansetron [Zofran Odt] 4 mg PO Q8HR PRN #10 tab.rapdis 12/18/17 Unknown Rx Omeprazole Magnesium [PriLOSEC Otc] 20 mg PO BID #20 tab 12/25/17 Unknown Rx Ondansetron [Zofran TAB] 4 mg PO Q8HR PRN #10 tablet 01/08/18 Unknown Rx ED Physical Exam - General Limitations: No Limitations General appearance: alert, in no apparent distress, other (smells of alcohol) - Head Head exam: Present: atraumatic, normocephalic - Eye Eye exam: Present: normal appearance - ENT ENT exam: Present: mucous membranes moist - Neck Neck exam: Present: normal inspection - Respiratory Respiratory exam: Present: normal lung sounds bilaterally. Absent: respiratory distress - Cardiovascular Cardiovascular Exam: Present: regular rate, normal rhythm. Absent: systolic murmur, diastolic murmur, rubs, gallop - GI/Abdominal GI/Abdominal exam: Present: soft, tenderness (epigastric), normal bowel sounds - Rectal Rectal exam: Present: deferred - Extremities Exam Extremities exam: Present: normal inspection - Back Exam Back exam: Present: normal inspection - Neurological Exam Neurological exam: Present: alert, oriented X3 - Psychiatric Psychiatric exam: Present: normal affect, normal mood - Skin Skin exam: Present: warm, dry, intact, normal color. Absent: rash ED Course Vital Signs 01/08/18 01/08/18 01/08/18 18:52 19:10 19:20 Temperature 98.7 F 98.3 F Pulse Rate 94 H 91 H Respiratory 18 13 13 Rate Blood Pressure 126/67 Blood Pressure 136/87 [Left] O2 Sat by Pulse 100 100 100 Oximetry 01/08/18 01/08/18 01/08/18 19:45 20:15 21:15 Temperature Pulse Rate Respiratory 13 16 12 Rate Blood Pressure Blood Pressure [Left] O2 Sat by Pulse Oximetry 01/08/18 21:26 Temperature Pulse Rate 94 H Respiratory 13 Rate Blood Pressure 146/92 Blood Pressure [Left] O2 Sat by Pulse 100 Oximetry ED Medical Decision Making - Lab Data Result diagrams: 01/08/18 Unknown 01/08/18 Unknown - Radiology Data Radiology results: report reviewed - Medical Decision Making 52-year-old male with past medical history of on-call abuse, pancreatitis that presents with vomiting and chest pain. Vital signs stable. EKG nonischemic. Patient well-appearing. He has mild epigastric abdominal pain on exam. Lab work significant for potassium of 2.8. Patient was given 40 mEq potassium in the ER. I have instructed him to continue potassium supplements at home for the next week. He was given a GI cocktail which resolved his chest symptoms. Troponin was negative times one. Chest x-ray unremarkable. Likely patient Vomiting related to his alcohol abuse, which is causing her pain. He is clinically sober. Patient is cleared for discharge. - Differential Diagnosis acs, pancreatitis, dehydration, electrolyte abnormality, dissection, hernia Critical care attestation.: If time is entered above; I have spent that time in minutes in the direct care of this critically ill patient, excluding procedure time. ED Disposition Clinical Impression: Alcohol abuse, Chronic anemia, Vomiting Disposition: DC-01 TO HOME OR SELFCARE Is pt being admited?: No Does the pt Need Aspirin: No Condition: Stable Instructions: Hypokalemia (ED), Acute Nausea and Vomiting (ED) Additional Instructions: Please take an [id number] potassium supplement daily for the next week. When you are ready to stop drinking, follow up with an alcohol rehab center. Prescriptions: Ondansetron [Zofran TAB] 4 mg PO Q8HR PRN #10 tablet PRN Reason: Nausea And Vomiting Referrals: PRIMARY CARE, [Primary Care Provider] - 3-5 Days
[2018-01-08] MEDS ORDERED: ZOFRAN ODT PO ONE (21:04)
[2018-01-08] MEDS ORDERED: ALUM-MAG HYDROX-SIMETH 200-200-20MG/5ML PO ONE (21:04)
[2018-01-08] MEDS ORDERED: LIDOCAINE VISCOUS 2% PO ONE (21:04)
--- NOTE | 2018-01-08 21:22 | XRay Report ---
FINAL REPORT PROCEDURE: Chest. TECHNIQUE: Portable AP view. HISTORY: Chest pain. COMPARISON: Abdominal series with chest 12/24/2017. FINDINGS: The heart size is normal. There is mild tortuosity of the thoracic aorta. The lungs are clear and well expanded. There are no pleural effusions. The soft tissues and regional skeleton are unremarkable. IMPRESSION: Negative portable chest.
[2018-01-08 21:42] VITALS: BP 146/92
== END 2018-01-08 22:24 | disposition home or self-care (01) ==
LOC: ED 18:36
DX: D53.9 Nutritional anemia, unspecified (principal); F10.10 Alcohol abuse, uncomplicated; R11.10 Vomiting, unspecified; I10 Essential (primary) hypertension; E11.9 Type 2 diabetes mellitus without complications; Z88.0 Allergy status to penicillin
CPT/HCPCS: 36415; 71045; 76705; 80048; 80074; 83690; 84484; 85025; 93005; 93010; 96361; 96374; 99285; J1885; J7030; Q0162

== ENCOUNTER 2018-01-26 21:53 | Emergency (ER) | payer MEDICAID ==
[2018-01-26] MEDS ORDERED: SUBLIMAZE IV ONE (22:16)
[2018-01-26] MEDS ORDERED: ATIVAN IV ONE (22:16)
[2018-01-26] MEDS ORDERED: ZOFRAN IV ONE (22:16)
[2018-01-26] MEDS ORDERED: NACL 0.9% 1000 ML 1,000 ML IV ONE (22:17)
[2018-01-26 22:30] VITALS: BP 111/67
--- NOTE | 2018-01-26 22:32 | Emergency Department Report ---
HPI - General Chief Complaint: Chest Pain Time Seen by Provider: 01/26/18 22:05 - HPI HPI: The patient is a 52-year-old male presents for evaluation of epigastric and chest pain for the past one day, constant, burning in quality, exacerbated with eating or drinking, 10/10 in severity. The patient has a history of alcohol abuse and chronic pancreatitis. The patient denies fever, trauma to the chest, cough, syncope, hemoptysis, unilateral leg swelling, recent immobilization, history of DVT or PE, hx of recent cancer. ED Past Medical Hx - Past Medical History Hx Hypertension: Yes Hx Diabetes: Yes Additional medical history: Umbillical hernia, colon polyps. colaspe lung/ CIRRHOIS, pancreatitis, ETOH abuse - Surgical History Additional Surgical History: ankle right surgery, - Social History Smoking Status: Never Smoker Substance Use Type: Alcohol - Medications Home Medications: Home Medications Medication Instructions Recorded Confirmed Last Taken Type Dicyclomine [Bentyl] 10 mg PO QID #15 capsule 12/01/17 Unknown Rx Diphenoxylate/Atropine [Lomotil] 1 tab PO Q4H PRN #10 tablet 12/01/17 Unknown Rx Ondansetron [Zofran Odt] 4 mg PO Q8HR PRN #10 tab.rapdis 12/01/17 Unknown Rx Metoclopramide [Reglan] 10 mg PO TID #15 tab 12/03/17 Unknown Rx Famotidine [Pepcid] 40 mg PO QHS #20 tablet 12/18/17 Unknown Rx Ondansetron [Zofran Odt] 4 mg PO Q8HR PRN #10 tab.rapdis 12/18/17 Unknown Rx Omeprazole Magnesium [PriLOSEC Otc] 20 mg PO BID #20 tab 12/25/17 Unknown Rx Ondansetron [Zofran TAB] 4 mg PO Q8HR PRN #10 tablet 01/08/18 Unknown Rx ED Review of Systems ROS: Stated complaint: CHEST PAIN Other details as noted in HPI Constitutional: denies: fever ENT: denies: throat or neck pain Respiratory: denies: cough, shortness of breath Cardiovascular: reports chest pain Endocrine: denies unexplained weight loss or gain Gastrointestinal: reports abdominal pain, nausea Genitourinary: denies: dysuria Musculoskeletal: denies: leg swelling Skin: denies: rash Neurological: denies: headache Hematological/Lymphatic: denies: easy bleeding or easy bruising Psych: denies sadness or hopelessness Physical Exam - Physical Exam Physical Exam: General: well-nourished, well-developed, no acute distress Head: Normocephalic, atraumatic Eyes: normal sclera ENT: Mucous membranes are pink and moist Neck: trachea midline, neck supple, No neck stiffness, no cervical adenopathy Respiratory: Breath sounds equal bilaterally, no wheezing, rales, or rhonchi Cardio: S1 and S2 present, no murmurs, rubs, gallops, capillary refill is brisk Abdomen: Normoactive bowel sounds, soft abdomen, epigastric tenderness to palpation present, no rigidity, no guarding or rebound tenderness Chest WALL/Back: No tenderness to palpation of the chest wall, no CVA tenderness with percussion Musc: No pitting edema Skin: No rash Neuro: no facial drooping, normal speech Psych: Normal affect ED Medical Decision Making - Lab Data Result diagrams: 01/26/18 22:36 01/26/18 22:36 - Medical Decision Making The patient was seen and examined by myself. The patient is placed on a cafeteria monitor and continuous pulse ox. On initial evaluation, the patient was found to be in no distress. Evaluation orders are placed. IV access is established and the patient is given 1 L normal saline fluid bolus and Zofran for nausea, and IV analgesic for pain. Lab results revealed elevated alcohol level of .26, and mild hypokalemia, potassium 3, and otherwise labs were non- concerning including normal level of troponin, WBC, renal function, LFTs, lipase. The patient was given K Dur for treatment of his hypokalemia. The patient was reevaluated. Attempted to ablate the patient was made and he exhibits an unsteady gait and continued intoxication. The patient was subsequently fell ablating in the hallway, and threatening to elope. A 2013 was filled out as the patient was intoxicated with unsteady gait, not medically cleared, and refusing to return to his room. The patient eloped from the emergency department just prior to completion of the 2013. [facility] to return the patient to the emergency department as he is not medically cleared and is heavily intoxicated. Critical care attestation.: If time is entered above; I have spent that time in minutes in the direct care of this critically ill patient, excluding procedure time. ED Disposition Clinical Impression: Acute chest pain, Abdominal pain, acute, epigastric, Dehydration, ETOH abuse, Acute hypokalemia Disposition: ELOPED Is pt being admited?: No Does the pt Need Aspirin: No Condition: Serious Instructions: Chest Pain (ED) Referrals: PRIMARY CARE, [Primary Care Provider] - 3-5 Days Time of Disposition: 02:49
[2018-01-26 22:54] LABS: Basophils % (Auto) 0.7 % (0.0-1.8); Eosinophils % (Auto) 0.1 % (0.0-4.3); Lymphocytes # (Auto) 2.1 K/mm3 (1.2-5.4); Lymphocytes % (Auto) 30.5 % (13.4-35.0); Mean Corpuscular HGB Conc 30 % (32-34); Mean Corpuscular Volume 71 fl (84-94); Monocytes # (Auto) 0.6 K/mm3 (0.0-0.8); Monocytes % (Auto) 8.4 % (0.0-7.3); Platelet Count 239 K/mm3 (140-440); Red Blood Count 5.14 M/mm3 (3.65-5.03)
[2018-01-26 22:55] LABS: Hematocrit 36.4 % (35.5-45.6); Mean Corpuscular Hemoglobin 22 pg (28-32)
[2018-01-26 23:12] LABS: Alanine Aminotransferase 12 units/L (7-56); Albumin 3.8 g/dL (3.9-5); BUN/Creatinine Ratio 6; Blood Urea Nitrogen 7 mg/dL (9-20); Calcium 9.1 mg/dL (8.4-10.2); Hemolysis Index 0; Lipase 14 units/L (13-60)
[2018-01-27] MEDS ORDERED: K-DUR PO ONE (00:01)
[2018-01-27] MEDS ORDERED: ATIVAN IV ONE (00:01)
--- NOTE | 2018-01-27 00:26 | XRay Report ---
FINAL REPORT EXAM: XR CHEST 1V AP HISTORY: chest pain TECHNIQUE: A portable upright view the chest was obtained and compared to the study of 01/08/2018. FINDINGS: The heart size and pulmonary vasculature appear normal. The lungs are clear. Pleural fluid is not seen. The skeletal structures do not show any acute changes. IMPRESSION: No acute cardiopulmonary process
[2018-01-27] MEDS ORDERED: SUBLIMAZE ONE (00:50)
[2018-01-27] MEDS ORDERED: TYLENOL PO ONE (02:20)
== END 2018-01-27 02:10 | disposition left against medical advice (07) ==
LOC: ED 21:53
DX: R07.89 Other chest pain (principal); E86.0 Dehydration; E87.6 Hypokalemia; I10 Essential (primary) hypertension; E11.9 Type 2 diabetes mellitus without complications; K74.60 Unspecified cirrhosis of liver
CPT/HCPCS: 36415; 71045; 80053; 83690; 84484; 85025; 93005; 93010; 96361; 96374; 96375; 96376; 99284; G0480; J2060; J2405; J3010; J7030; 80320

== ENCOUNTER 2018-01-27 03:42 | Emergency (ER) | payer MEDICAID ==
[2018-01-27 03:55] VITALS: BP 139/87
== END 2018-01-27 13:55 | disposition left against medical advice (07) ==
LOC: ED 03:42
DX: R07.89 Other chest pain (principal); Z53.21 Procedure and treatment not carried out due to patient leaving prior to being seen by health care provider
CPT/HCPCS: 93005; 93010

== ENCOUNTER 2018-03-02 03:12 | Emergency (ER) | payer MEDICAID ==
[2018-03-02 05:36] VITALS: BP 119/80
[2018-03-02] MEDS ORDERED: ASPIRIN PO ONE (05:36)
[2018-03-02 05:57] LABS: Basophils # (Auto) 0.1 K/mm3 (0.0-0.1); Basophils % (Auto) 1.4 % (0.0-1.8); Eosinophils % (Auto) 0.5 % (0.0-4.3); Lymphocytes # (Auto) 1.7 K/mm3 (1.2-5.4); Lymphocytes % (Auto) 40.8 % (13.4-35.0); Mean Corpuscular HGB Conc 31 % (32-34); Mean Corpuscular Volume 73 fl (84-94); Monocytes # (Auto) 0.5 K/mm3 (0.0-0.8); Monocytes % (Auto) 11.2 % (0.0-7.3); Platelet Count 251 K/mm3 (140-440); Red Blood Count 5.28 M/mm3 (3.65-5.03)
[2018-03-02 06:14] LABS: BUN/Creatinine Ratio 7; Blood Urea Nitrogen 4 mg/dL (9-20); Calcium 9.4 mg/dL (8.4-10.2); Hemolysis Index 9
[2018-03-02 06:23] LABS: Hematocrit 38.7 % (35.5-45.6); Hemoglobin 11.9 gm/dl (11.8-15.2)
[2018-03-02 06:24] LABS: Mean Corpuscular Hemoglobin 23 pg (28-32); Red Cell Distribution Width 22.5 % (13.2-15.2)
== END 2018-03-02 10:30 | disposition left against medical advice (07) ==
LOC: ED 03:12
DX: R07.9 Chest pain, unspecified (principal); Z53.21 Procedure and treatment not carried out due to patient leaving prior to being seen by health care provider
CPT/HCPCS: 36415; 80048; 83690; 84484; 85025; 93005; 93010; G0480; 80320

== ENCOUNTER 2018-03-24 21:15 | Emergency (ER) | payer MEDICAID ==
[2018-03-24] MEDS ORDERED: NACL 0.9% 1000 ML 1,000 ML IV ONE (21:55)
[2018-03-24] MEDS ORDERED: ZOFRAN IV ONE (21:55)
--- NOTE | 2018-03-24 22:01 | Emergency Department Report ---
<MICHAELGLADYS LaNetta - Last Filed: 03/25/18 01:56> ED Alcohol HPI - General Chief Complaint: Alcohol Stated Complaint: ETOH Time Seen by Provider: 03/24/18 21:36 Source: patient Mode of arrival: Stretcher Limitations: No Limitations - History of Present Illness Initial Comments: 52 year old male patient brought to ER for alcohol intoxication. Patient reports chest pain, nausea, vomiting and diarrhea. Patient requesting IV fluids and nausea medication. MD Complaint: alcohol intoxication Chronic Alcohol Use: Yes Associated Symptoms: nausea, vomiting, other (chest pain) - Related Data Previous Rx's Medication Instructions Recorded Last Taken Type Esomeprazole Magnesium [Nexium 20 mg PO QDAY #30 capsule. 03/25/18 Unknown Rx 24Hr] Promethazine [Phenergan TAB] 25 mg PO Q6HR PRN #20 tab 03/25/18 Unknown Rx Allergies Allergy/AdvReac Type Severity Reaction Status Date / Time Penicillins Allergy Hives Verified 12/18/17 09:10 ED Review of Systems ROS: Stated complaint: ETOH Other details as noted in HPI Comment: All other systems reviewed and negative Cardiovascular: chest pain Gastrointestinal: abdominal pain, nausea, vomiting, diarrhea ED Past Medical Hx - Past Medical History Hx Hypertension: Yes Hx Diabetes: Yes Additional medical history: Umbillical hernia, colon polyps. colaspe lung/ CIRRHOIS, pancreatitis, ETOH abuse - Surgical History Additional Surgical History: ankle right surgery, Hernia - Social History Smoking Status: Never Smoker Substance Use Type: Alcohol - Medications Home Medications: Home Medications Medication Instructions Recorded Confirmed Last Taken Type Esomeprazole Magnesium [Nexium 20 mg PO QDAY #30 capsule. 03/25/18 Unknown Rx 24Hr] Promethazine [Phenergan TAB] 25 mg PO Q6HR PRN #20 tab 03/25/18 Unknown Rx ED Physical Exam - General Limitations: No Limitations General appearance: alert, in no apparent distress, appears intoxicated, other ( appears unkempt) - Head Head exam: Present: atraumatic, normocephalic - Eye Eye exam: Present: normal appearance - ENT ENT exam: Present: mucous membranes moist - Neck Neck exam: Present: normal inspection - Respiratory Respiratory exam: Present: normal lung sounds bilaterally. Absent: respiratory distress - Cardiovascular Cardiovascular Exam: Present: normal rhythm, tachycardia - GI/Abdominal GI/Abdominal exam: Present: soft. Absent: tenderness - Extremities Exam Extremities exam: Present: normal inspection - Neurological Exam Neurological exam: Present: alert, other (intoxicated) - Psychiatric Psychiatric exam: Present: normal affect, normal mood - Skin Skin exam: Present: warm, dry ED Course Vital Signs 03/24/18 03/24/18 03/25/18 21:31 21:35 09:34 Temperature 98.8 F 98.8 F Pulse Rate 104 H 107 H Respiratory 15 16 16 Rate Blood Pressure 129/83 Blood Pressure 129/83 [Left] O2 Sat by Pulse 100 99 98 Oximetry 03/25/18 12:01 Temperature 98.8 F Pulse Rate 108 H Respiratory 16 Rate Blood Pressure Blood Pressure 136/85 [Left] O2 Sat by Pulse 94 Oximetry ED Medical Decision Making - Lab Data Result diagrams: 03/24/18 22:50 03/24/18 22:50 - EKG Data EKG shows normal: sinus rhythm, axis (nml), intervals (prolonged [place]), QRS complexes (nml), ST-T waves (nml) Rate: tachycardia (rate 106) - EKG Data When compared to previous EKG there are: no significant change Interpretation: no acute changes, unchanged when compared t (01/27/18) - Radiology Data Radiology results: report reviewed, image reviewed - Medical Decision Making 60-year-old male here with EtOH intoxication. Patient reported chest pain, nausea, vomiting. EKG, chest x-ray and cardiac enzymes unremarkable. 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 Alcohol level is 400. Will observe in the ED until patient clinically sober. Patient signed out to Dr Fatou Cardoso for dispo. - Differential Diagnosis etoh intoxication, ACS, gastritis Critical care attestation.: If time is entered above; I have spent that time in minutes in the direct care of this critically ill patient, excluding procedure time. ED Disposition Disposition: DC-01 TO HOME OR SELFCARE Condition: Stable Prescriptions: Esomeprazole Magnesium [Nexium 24Hr] 20 mg PO QDAY #30 capsule.dr Cruzazine [Phenergan TAB] 25 mg PO Q6HR PRN #20 tab PRN Reason: Nausea Referrals: PRIMARY CARE, [Primary Care Provider] - 3-5 Days <LILIBETH CARDOSO - Last Filed: 03/25/18 16:20> ED Medical Decision Making - Lab Data Result diagrams: 03/24/18 22:50 03/24/18 22:50 - Medical Decision Making AFter 19 hours of observation, patient is awake and sober. he does have a place of residence. dc'd home tolerated PO prior to discharge ED Disposition Is pt being admited?: No Does the pt Need Aspirin: No
--- NOTE | 2018-03-24 22:25 | XRay Report ---
FINAL REPORT PROCEDURE: XR CHEST 1V AP TECHNIQUE: Chest radiograph anteroposterior view. CPT 30578 HISTORY: chest pain COMPARISON: 01/27/2018 FINDINGS: Heart: Normal. Mediastinum/Vessels: Normal. Lungs/Pleural space: Normal. Bony thorax: No acute osseous abnormality. Life support devices: None. IMPRESSION: No acute cardiopulmonary abnormality.
[2018-03-24 23:38] LABS: Basophils % (Auto) 0.6 % (0.0-1.8); Eosinophils % (Auto) 0.2 % (0.0-4.3); Lymphocytes # (Auto) 1.4 K/mm3 (1.2-5.4); Mean Corpuscular HGB Conc 31 % (32-34); Mean Corpuscular Volume 74 fl (84-94); Monocytes # (Auto) 0.4 K/mm3 (0.0-0.8); Monocytes % (Auto) 8.4 % (0.0-7.3); Platelet Count 373 K/mm3 (140-440); Red Blood Count 5.66 M/mm3 (3.65-5.03)
[2018-03-24 23:42] LABS: Hematocrit 41.8 % (35.5-45.6); Hemoglobin 12.8 gm/dl (11.8-15.2); Mean Corpuscular Hemoglobin 23 pg (28-32); Red Cell Distribution Width 22.1 % (13.2-15.2)
[2018-03-24 23:47] LABS: INR 0.96 (0.87-1.13)
[2018-03-24 23:48] LABS: Partial Thromboplastin Time 24.6 Sec. (24.2-36.6)
[2018-03-25] MEDS ORDERED: ATIVAN ONE (00:05)
[2018-03-25] MEDS ORDERED: ATIVAN IV ONE (00:10)
[2018-03-25 01:07] LABS: BUN/Creatinine Ratio 10; Blood Urea Nitrogen 10 mg/dL (9-20); Calcium 8.7 mg/dL (8.4-10.2); Hemolysis Index 10
[2018-03-25 01:09] LABS: Alanine Aminotransferase 24 units/L (7-56); Albumin 4.3 g/dL (3.9-5); Lipase 15 units/L (13-60)
[2018-03-25 01:22] LABS: Bilirubin,Direct < 0.2 mg/dL (0-0.2)
[2018-03-25] MEDS ORDERED: NACL 0.9% 1000 ML 1,000 ML IV ONE (07:37)
[2018-03-25] MEDS ORDERED: ZOFRAN IV ONE (07:37)
[2018-03-25 09:17] LABS: Bilirubin,Urine NEG (Negative); Blood,Urine NEG (Negative); Color,Urine Yellow (Yellow); Hyaline Casts,Urine 3 /LPF; Mucus,Urine 1+ /HPF
[2018-03-25 09:22] LABS: Amphetamine Screen,Urine PRESUMPTIVE NEGATIVE; Benzodiazepines Screen,Urine PRESUMPTIVE NEGATIVE; Cannabinoid Screen,Urine PRESUMPTIVE NEGATIVE; Cocaine Screen,Urine PRESUMPTIVE NEGATIVE; Methadone Screen,Urine PRESUMPTIVE NEGATIVE; Opiate Screen,Urine PRESUMPTIVE NEGATIVE
[2018-03-25 12:07] VITALS: BP 136/85
[2018-03-25] MEDS ORDERED: NACL 0.9% 1000 ML 1,000 ML ONE (14:30)
[2018-03-25] MEDS ORDERED: REGLAN ONE (15:53)
[2018-03-25] MEDS ORDERED: REGLAN IV ONE (16:01)
== END 2018-03-25 16:25 | disposition home or self-care (01) ==
LOC: ED 21:15
DX: F10.920 Alcohol use, unspecified with intoxication, uncomplicated (principal); I10 Essential (primary) hypertension; E11.9 Type 2 diabetes mellitus without complications; Z88.0 Allergy status to penicillin
CPT/HCPCS: 36415; 71045; 80048; 80074; 80307; 81001; 83690; 84484; 85025; 85610; 85730; 93005; 93010; 96361; 96374; 96375; 96376; 99285; G0480; J2060; J2405; J2765; J7030; 80320

== ENCOUNTER 2018-07-21 18:26 | Emergency (ER) | payer MEDICAID ==
[2018-07-21 19:57] LABS: Hematocrit 41.4 % (35.5-45.6); Hemoglobin 13.4 gm/dl (11.8-15.2); Mean Corpuscular HGB Conc 32 % (32-34); Mean Corpuscular Volume 83 fl (84-94); Red Blood Count 4.99 M/mm3 (3.65-5.03)
[2018-07-21 19:58] LABS: Platelet Count 211 K/mm3 (140-440); Red Cell Distribution Width 20.4 % (13.2-15.2)
[2018-07-21 20:11] LABS: BUN/Creatinine Ratio 9; Blood Urea Nitrogen 6 mg/dL (9-20); Calcium 9.1 mg/dL (8.4-10.2); Hemolysis Index 40
--- NOTE | 2018-07-21 20:38 | Emergency Department Report ---
ED Psych HPI - General Chief Complaint: Psych Stated Complaint: MH Time Seen by Provider: 07/21/18 20:02 Source: patient Mode of arrival: Ambulatory - History of Present Illness Initial Comments: Patient is 52 years old male with history of schizophrenia. Patient presented to the ER stating that he is hearing worse is asking him to kill himself by jumping off a high building. Patient stated that he tried that before and he broke his right ankle last year. Patient denied any homicidal ideation. No visual hallucination. Patient stated that he drink alcohol daily. MD Complaint: suicidal ideation, feels depressed Associated Psychiatric Symptoms: depression, suicidal ideation, auditory hallucinations History of same: Yes Quality: constant Improves With: medication Context: recent alcohol abuse If Self Harm: admits thoughts of, has plan, self-inflicted trauma - Related Data Home Medications Medication Instructions Recorded Confirmed Last Taken FLUoxetine [PROzac] 20 mg PO QDAY 06/21/18 06/21/18 Unknown Previous Rx's Medication Instructions Recorded Last Taken Type Famotidine [Pepcid] 20 mg PO BID #30 tablet 06/20/18 Unknown Rx chlordiazePOXIDE [Librium] 25 mg PO Q6H PRN #30 capsule 06/20/18 Unknown Rx Pantoprazole [Protonix] 40 mg PO BID #60 tablet 06/22/18 Unknown Rx Sucralfate 1 gm PO QID 30 Days tablet 06/22/18 Unknown Rx oxyCODONE /ACETAMINOPHEN [Percocet 1 tab PO Q4HR #12 tab 06/22/18 Unknown Rx 5/325] Allergies Allergy/AdvReac Type Severity Reaction Status Date / Time Penicillins Allergy Hives Verified 06/20/18 01:28 ED Review of Systems ROS: Stated complaint: MH Other details as noted in HPI Comment: All other systems reviewed and negative Constitutional: denies: chills, fever Respiratory: denies: cough, orthopnea, shortness of breath, SOB with exertion, SOB at rest Cardiovascular: palpitations. denies: chest pain Gastrointestinal: denies: abdominal pain, nausea, vomiting, diarrhea, constipation, hematemesis, melena, hematochezia Musculoskeletal: denies: back pain ED Past Medical Hx - Past Medical History Hx Hypertension: Yes Hx Congestive Heart Failure: No Hx Diabetes: Yes Hx Psychiatric Treatment: Yes (paranoid schizophrenia) Hx Asthma: No Additional medical history: Umbillical hernia, colon polyps. colaspe lung/ CIRRHOIS, pancreatitis, ETOH abuse - Surgical History Additional Surgical History: ankle right surgery, Hernia - Social History Smoking Status: Current Every Day Smoker Substance Use Type: Alcohol - Medications Home Medications: Home Medications Medication Instructions Recorded Confirmed Last Taken Type Famotidine [Pepcid] 20 mg PO BID #30 tablet 06/20/18 Unknown Rx chlordiazePOXIDE [Librium] 25 mg PO Q6H PRN #30 capsule 06/20/18 Unknown Rx FLUoxetine [PROzac] 20 mg PO QDAY 06/21/18 06/21/18 Unknown History Pantoprazole [Protonix] 40 mg PO BID #60 tablet 06/22/18 Unknown Rx Sucralfate 1 gm PO QID 30 Days tablet 06/22/18 Unknown Rx oxyCODONE /ACETAMINOPHEN [Percocet 1 tab PO Q4HR #12 tab 06/22/18 Unknown Rx 5/325] ED Physical Exam - General Limitations: No Limitations General appearance: alert, in no apparent distress, appears intoxicated - Head Head exam: Present: atraumatic, normocephalic, normal inspection - Eye Eye exam: Present: normal appearance, PERRL - ENT ENT exam: Present: normal exam, normal orophraynx, mucous membranes moist - Neck Neck exam: Present: normal inspection, full ROM. Absent: tenderness, meningismus, lymphadenopathy, thyromegaly - Respiratory Respiratory exam: Present: normal lung sounds bilaterally. Absent: respiratory distress, wheezes, rales, rhonchi, stridor, chest wall tenderness, accessory muscle use, decreased breath sounds, prolonged expiratory - Cardiovascular Cardiovascular Exam: Present: regular rate, normal rhythm, normal heart sounds - GI/Abdominal GI/Abdominal exam: Present: soft, normal bowel sounds. Absent: distended, tende rness, guarding, rebound, rigid, organomegaly, mass, bruit, pulsatile mass, hernia - Extremities Exam Extremities exam: Present: normal inspection, full ROM, normal capillary refill. Absent: pedal edema, calf tenderness - Back Exam Back exam: Present: normal inspection, full ROM. Absent: tenderness, CVA tenderness (R), CVA tenderness (L), muscle spasm, paraspinal tenderness, vertebral tenderness - Neurological Exam Neurological exam: Present: alert, oriented X3, CN II-XII intact, normal gait, reflexes normal - Psychiatric Psychiatric exam: Present: depressed, anxious, suicidal ideation. Absent: flat affect, manic, homicidal ideation - Skin Skin exam: Present: warm, intact, normal color ED Course Vital Signs 07/21/18 19:20 Temperature 98 F Pulse Rate 114 H Respiratory 20 Rate Blood Pressure 156/102 O2 Sat by Pulse 96 Oximetry ED Medical Decision Making - Lab Data Result diagrams: 07/21/18 19:42 07/21/18 19:42 Critical care attestation.: If time is entered above; I have spent that time in minutes in the direct care of this critically ill patient, excluding procedure time. ED Disposition Clinical Impression: Acute psychosis, Suicidal ideation, Alcohol intoxication Disposition: DC/TX-65 PSY HOSP/PSY UNIT Is pt being admited?: No Condition: Stable
[2018-07-21 20:41] LABS: Basophils % (Manual) 0 % (0.0-1.8); Eosinophils % (Manual) 0 % (0.0-4.3); Total Cells Counted 100
[2018-07-21 20:42] LABS: Anisocytosis 1+; Poikilocytosis Few
[2018-07-21 23:20] LABS: Bilirubin,Urine NEG (Negative); Blood,Urine NEG (Negative); Color,Urine Yellow (Yellow); Mucus,Urine FEW /HPF; Protein,Urine <15 mg/dL mg/dL (Negative); Urobilinogen,Urine < 2.0 mg/dL (<2.0)
[2018-07-21 23:28] LABS: Amphetamine Screen,Urine PRESUMPTIVE NEGATIVE; Benzodiazepines Screen,Urine PRESUMPTIVE NEGATIVE; Cannabinoid Screen,Urine PRESUMPTIVE NEGATIVE; Cocaine Screen,Urine PRESUMPTIVE NEGATIVE; Methadone Screen,Urine PRESUMPTIVE NEGATIVE; Opiate Screen,Urine PRESUMPTIVE NEGATIVE
[2018-07-22 08:07] VITALS: BP 155/108
[2018-07-22] MEDS: PROzac PO SCH ×2 (08:30→11:00)
[2018-07-22] MEDS ORDERED: CARAFATE PO SCH (10:00)
[2018-07-22] MEDS ORDERED: PEPCID PO SCH (10:00)
[2018-07-22] MEDS ORDERED: PROTONIX PO SCH (10:00)
== END 2018-07-22 12:53 ==
LOC: ED 18:26 → EEVIPCON 18:26 → ED 07-22 12:53
DX: F23 Brief psychotic disorder (principal); F10.120 Alcohol abuse with intoxication, uncomplicated; I10 Essential (primary) hypertension; E11.9 Type 2 diabetes mellitus without complications; F17.200 Nicotine dependence, unspecified, uncomplicated; Z88.0 Allergy status to penicillin
CPT/HCPCS: 36415; 80048; 80307; 81001; 85007; 85025; 99285; G0480; 80320

== ENCOUNTER 2018-08-09 21:32 | Emergency (ER) | payer MEDICAID ==
[2018-08-09] MEDS ORDERED: PEPCID PO ONE (22:14)
[2018-08-09] MEDS ORDERED: VITAMIN B-1 100 MG, FOLVITE 1 MG, INFUVITE 10 ML in NACL 0.9% 1000 ML 1,000 ML IV ONE (22:14)
[2018-08-09] MEDS ORDERED: ZOFRAN IV ONE (22:32)
[2018-08-09] MEDS ORDERED: TORADOL IV ONE (22:32)
--- NOTE | 2018-08-09 22:57 | Emergency Department Report ---
ED Abdominal Pain HPI - General Chief Complaint: Abdominal Pain Stated Complaint: ABD PAIN/ETOH Time Seen by Provider: 08/09/18 22:12 Source: patient Mode of arrival: Stretcher Limitations: No Limitations - History of Present Illness Initial Comments: 52-year-old male with a past medical history of diabetes, paranoid schizophrenia , umbilical hernia repair, pancreatitis, liver cirrhosis and alcohol abuse presents to the hospital complaining of suprapubic abdominal pain 2 days. Patient reports difficulty urinating and cannot recall when he last urinated. Patient is a chronic alcoholic and did have alcohol today and appears to be acutely intoxicated. Patient is unable to urinate despite straining. Denies urinary retention. Severity scale (0 -10): 6 - Related Data Home Medications Medication Instructions Recorded Confirmed Last Taken RX: FLUoxetine [PROzac] 20 mg PO QDAY 06/21/18 07/21/18 Unknown Previous Rx's Medication Instructions Recorded Last Taken Type Famotidine [Pepcid] 20 mg PO BID #30 tablet 06/20/18 Unknown Rx chlordiazePOXIDE [Librium] 25 mg PO Q6H PRN #30 capsule 06/20/18 Unknown Rx Pantoprazole [Protonix] 40 mg PO BID #60 tablet 06/22/18 Unknown Rx RX: Sucralfate 1 gm PO QID 30 Days tablet 06/22/18 Unknown Rx oxyCODONE /ACETAMINOPHEN [Percocet 1 tab PO Q4HR #12 tab 06/22/18 Unknown Rx 5/325] Allergies Allergy/AdvReac Type Severity Reaction Status Date / Time Penicillins Allergy Hives Verified 06/20/18 01:28 ED Review of Systems ROS: Stated complaint: ABD PAIN/ETOH Other details as noted in HPI Comment: All other systems reviewed and negative ED Past Medical Hx - Past Medical History Hx Hypertension: Yes Hx Congestive Heart Failure: No Hx Diabetes: Yes Hx Psychiatric Treatment: Yes (paranoid schizophrenia) Hx Asthma: No Additional medical history: Umbillical hernia, colon polyps. colaspe lung/ CIRRHOIS, pancreatitis, ETOH abuse - Surgical History Additional Surgical History: ankle right surgery, Hernia - Social History Smoking Status: Current Every Day Smoker Substance Use Type: Alcohol - Medications Home Medications: Home Medications Medication Instructions Recorded Confirmed Last Taken Type Famotidine [Pepcid] 20 mg PO BID #30 tablet 06/20/18 07/21/18 Unknown Rx chlordiazePOXIDE [Librium] 25 mg PO Q6H PRN #30 capsule 06/20/18 07/21/18 Unknown Rx RX: FLUoxetine [PROzac] 20 mg PO QDAY 06/21/18 07/21/18 Unknown History Pantoprazole [Protonix] 40 mg PO BID #60 tablet 06/22/18 07/21/18 Unknown Rx RX: Sucralfate 1 gm PO QID 30 Days tablet 06/22/18 07/21/18 Unknown Rx oxyCODONE /ACETAMINOPHEN [Percocet 1 tab PO Q4HR #12 tab 06/22/18 07/21/18 Unknown Rx 5/325] ED Physical Exam - General Limitations: No Limitations - Other Other exam information: General: No limitations, patient is alert in no acute distress Head exam: Atraumatic, normocephalic Eyes exam: Normal appearance, pupils equal reactive to light, extraocular movements intact ENT: Moist mucous membrane Neck exam: Normal inspection, full range of motion, no meningismus nontender Respiratory exam: Clear to auscultation bilateral, no wheezes, rales, crackles Cardiovascular: Normal rate and rhythm, normal heart sounds Abdomen: Soft, nondistended, suprapubic distention and tenderness, with normal bowel sounds, no rebound, or guarding. midline vertical scar to the left of umbilicus : Galindo placed by RN and states some resistance. Initial output of 700 mL of urine Extremity: Full range of motion normal inspection no deformity Back: Normal Inspection, full range of motion, no tenderness Neurologic: Alert, oriented x3, cranial nerves intact, no motor or sensory deficit Psychiatric: normal affect, normal mood Skin: Warm, dry, intact ED Course Vital Signs 08/09/18 08/09/18 08/10/18 22:39 22:42 02:11 Temperature 98 F Pulse Rate 105 H 93 H Respiratory 20 20 18 Rate Blood Pressure 138/42 114/84 [Left] O2 Sat by Pulse 94 94 95 Oximetry ED Medical Decision Making - Lab Data Result diagrams: 08/09/18 Unknown 08/09/18 Unknown Lab Results 08/09/18 08/09/18 08/09/18 Range/Units 22:41 22:41 Unknown WBC 7.4 (4.5-11.0) K/mm3 RBC 4.40 (3.65-5.03) M/mm3 Hgb 12.2 (11.8-15.2) gm/dl Hct 37.9 (35.5-45.6) % MCV 86 (84-94) fl MCH 28 (28-32) pg MCHC 32 (32-34) % RDW 20.0 H (13.2-15.2) % Plt Count 344 (140-440) K/mm3 Lymph % (Auto) 20.8 (13.4-35.0) % Pierce % (Auto) 6.4 (0.0-7.3) % Eos % (Auto) 0.1 (0.0-4.3) % Baso % (Auto) 0.4 (0.0-1.8) % Lymph # 1.5 (1.2-5.4) K/mm3 Pierce # 0.5 (0.0-0.8) K/mm3 Eos # 0.0 (0.0-0.4) K/mm3 Baso # 0.0 (0.0-0.1) K/mm3 Seg Neutrophils % 72.3 H (40.0-70.0) % Seg Neutrophils # 5.4 (1.8-7.7) K/mm3 Sodium (137-145) mmol/L Potassium (3.6-5.0) mmol/L Chloride (98-107) mmol/L Carbon Dioxide (22-30) mmol/L Anion Gap mmol/L BUN (9-20) mg/dL Creatinine (0.8-1.5) mg/dL Estimated GFR ml/min BUN/Creatinine Ratio % Glucose (75-100) mg/dL Calcium (8.4-10.2) mg/dL Magnesium (1.7-2.3) mg/dL Total Bilirubin (0.1-1.2) mg/dL AST (5-40) units/L ALT (7-56) units/L Alkaline Phosphatase (35-129) units/L Total Protein (6.3-8.2) g/dL Albumin (3.9-5) g/dL Albumin/Globulin Ratio % Amylase (27-131) units/L Lipase (13-60) units/L Urine Color Yellow (Yellow) Urine Turbidity Clear (Clear) Urine pH 5.0 (5.0-7.0) Ur Specific [place] 1.004 (1.003-1.030) Urine Protein <15 mg/dl (Negative) mg/dL Urine Glucose (UA) Neg (Negative) mg/dL Urine Ketones Neg (Negative) mg/dL Urine Blood Neg (Negative) Urine Nitrite Neg (Negative) Urine Bilirubin Neg (Negative) Urine Urobilinogen < 2.0 (<2.0) mg/dL Ur Leukocyte Esterase Neg (Negative) Urine WBC (Auto) < 1.0 (0.0-6.0) /HPF Urine RBC (Auto) 2.0 (0.0-6.0) /HPF Amorphous Crystals Few Urine Mucus Few /HPF Urine Opiates Screen Presumptive negative Urine Methadone Screen Presumptive negative Ur Barbiturates Screen Presumptive positive Ur Phencyclidine Scrn Presumptive negative Ur Amphetamines Screen Presumptive negative U Benzodiazepines Scrn Presumptive negative Urine Cocaine Screen Presumptive negative U Marijuana (THC) Screen Presumptive negative Plasma/Serum Alcohol (0-0.07) % 08/09/18 08/09/18 08/09/18 Range/Units Unknown Unknown Unknown WBC (4.5-11.0) K/mm3 RBC (3.65-5.03) M/mm3 Hgb (11.8-15.2) gm/dl Hct (35.5-45.6) % MCV (84-94) fl MCH (28-32) pg MCHC (32-34) % RDW (13.2-15.2) % Plt Count (140-440) K/mm3 Lymph % (Auto) (13.4-35.0) % Pierce % (Auto) (0.0-7.3) % Eos % (Auto) (0.0-4.3) % Baso % (Auto) (0.0-1.8) % Lymph # (1.2-5.4) K/mm3 Pierce # (0.0-0.8) K/mm3 Eos # (0.0-0.4) K/mm3 Baso # (0.0-0.1) K/mm3 Seg Neutrophils % (40.0-70.0) % Seg Neutrophils # (1.8-7.7) K/mm3 Sodium 141 (137-145) mmol/L Potassium 4.4 (3.6-5.0) mmol/L Chloride 97.1 L (98-107) mmol/L Carbon Dioxide 18 L (22-30) mmol/L Anion Gap 30 mmol/L BUN 8 L (9-20) mg/dL Creatinine 0.8 (0.8-1.5) mg/dL Estimated GFR > 60 ml/min BUN/Creatinine Ratio 10 % Glucose 88 (75-100) mg/dL Calcium 9.4 (8.4-10.2) mg/dL Magnesium 2.20 (1.7-2.3) mg/dL Total Bilirubin 0.30 (0.1-1.2) mg/dL AST 37 (5-40) units/L ALT 18 (7-56) units/L Alkaline Phosphatase 104 (35-129) units/L Total Protein 7.7 (6.3-8.2) g/dL Albumin 4.5 (3.9-5) g/dL Albumin/Globulin Ratio 1.4 % Amylase 98 (27-131) units/L Lipase 12 L (13-60) units/L Urine Color (Yellow) Urine Turbidity (Clear) Urine pH (5.0-7.0) Ur Specific [place] (1.003-1.030) Urine Protein (Negative) mg/dL Urine Glucose (UA) (Negative) mg/dL Urine Ketones (Negative) mg/dL Urine Blood (Negative) Urine Nitrite (Negative) Urine Bilirubin (Negative) Urine Urobilinogen (<2.0) mg/dL Ur Leukocyte Esterase (Negative) Urine WBC (Auto) (0.0-6.0) /HPF Urine RBC (Auto) (0.0-6.0) /HPF Amorphous Crystals Urine Mucus /HPF Urine Opiates Screen Urine Methadone Screen Ur Barbiturates Screen Ur Phencyclidine Scrn Ur Amphetamines Screen U Benzodiazepines Scrn Urine Cocaine Screen U Marijuana (THC) Screen Plasma/Serum Alcohol 0.19 H (0-0.07) % - Medical Decision Making Patient is a presented to the ED for medical complaints and presented with urinary retention and suprapubic tenderness relieved by Galindo catheter inserted. Plan to discharge patient with leg bag and urology f/u. patient expressed suicidal ideation and therefore a 1013 was signed. Patient also demanding that urinary catheter be removed. Patient needs to have a catheter with leg bag since he presents with retention he would need to follow up with urology for further management. The patient placed on [facility] protocol for etoh dependence - Differential Diagnosis retention, UTI, alcohol abuse Critical Care Time: No Critical care attestation.: If time is entered above; I have spent that time in minutes in the direct care of this critically ill patient, excluding procedure time. ED Disposition Clinical Impression: Alcohol intoxication, Urinary retention, Suicidal ideations, Medical clearance for psychiatric admission, Alcohol abuse Disposition: [id number]/TX-65 PSY HOSP/PSY UNIT Is pt being admited?: No Does the pt Need Aspirin: No Condition: Stable Time of Disposition: 01:39
[2018-08-09 23:23] LABS: Basophils % (Auto) 0.4 % (0.0-1.8); Eosinophils % (Auto) 0.1 % (0.0-4.3); Hematocrit 37.9 % (35.5-45.6); Hemoglobin 12.2 gm/dl (11.8-15.2); Lymphocytes # (Auto) 1.5 K/mm3 (1.2-5.4); Lymphocytes % (Auto) 20.8 % (13.4-35.0); Mean Corpuscular HGB Conc 32 % (32-34); Mean Corpuscular Volume 86 fl (84-94); Monocytes # (Auto) 0.5 K/mm3 (0.0-0.8); Monocytes % (Auto) 6.4 % (0.0-7.3); Platelet Count 344 K/mm3 (140-440)
[2018-08-09 23:28] LABS: Amorphous Crystals,Urine Few; Bilirubin,Urine NEG (Negative); Blood,Urine NEG (Negative); Color,Urine Yellow (Yellow); Mucus,Urine FEW /HPF; Protein,Urine <15 mg/dL mg/dL (Negative); Urobilinogen,Urine < 2.0 mg/dL (<2.0); WBC,Urine < 1.0 /HPF (0.0-6.0)
[2018-08-10] MEDS ORDERED: TYLENOL PO ONE ×2 (00:30→22:31)
[2018-08-10] MEDS ORDERED: TYLENOL ONE (00:31)
[2018-08-10 00:45] LABS: Amphetamine Screen,Urine PRESUMPTIVE NEGATIVE; Benzodiazepines Screen,Urine PRESUMPTIVE NEGATIVE; Cannabinoid Screen,Urine PRESUMPTIVE NEGATIVE; Cocaine Screen,Urine PRESUMPTIVE NEGATIVE; Methadone Screen,Urine PRESUMPTIVE NEGATIVE; Opiate Screen,Urine PRESUMPTIVE NEGATIVE
[2018-08-10 00:52] LABS: Alanine Aminotransferase 18 units/L (7-56); Albumin 4.5 g/dL (3.9-5); BUN/Creatinine Ratio 10; Blood Urea Nitrogen 8 mg/dL (9-20); Calcium 9.4 mg/dL (8.4-10.2); Hemolysis Index 46
[2018-08-10] MEDS ORDERED: ATIVAN PO PRN ×2 (01:42)
--- NOTE | 2018-08-10 12:39 | Consultation ---
History of Present Illness - Reason for Consult Consult date: 08/10/18 Reason for consult: Mental Health Evaluation Requesting physician: LAKSHMI NICOLE - Chief Complaint Chief complaint: "I am suicidal" - History of Present Psychiatric Illness 52 y.o. AA male presented to the ER for suprapubic abdominal pain 2 days. Prior to being discharged, the patient endorsed SI's. Today the patient is calm, but vague during the assessment. He did state that he was suicidal, but would not explain why. He stated having a hx of alcohol abuse for several yrs that has caused him to be depressed for "a long time" per the patient. He stated that he took Prozac for depression, but have not be compliant with the medication. Throughout the interview, the patient kept his face covered with his arms. He denies HI's and AVH's. Medications and Allergies Allergies Allergy/AdvReac Type Severity Reaction Status Date / Time Penicillins Allergy Hives Verified 06/20/18 01:28 Home Medications Medication Instructions Recorded Confirmed Last Taken Type Famotidine [Pepcid] 20 mg PO BID #30 tablet 06/20/18 08/10/18 Unknown Rx chlordiazePOXIDE [Librium] 25 mg PO Q6H PRN #30 capsule 06/20/18 08/10/18 Unknown Rx FLUoxetine [PROzac] 20 mg PO QDAY 06/21/18 08/10/18 Unknown History Pantoprazole [Protonix] 40 mg PO BID #60 tablet 06/22/18 08/10/18 Unknown Rx Sucralfate 1 gm PO QID 30 Days tablet 06/22/18 08/10/18 Unknown Rx oxyCODONE /ACETAMINOPHEN [Percocet 1 tab PO Q4HR #12 tab 06/22/18 08/10/18 Unknown Rx 5/325] Active Meds: Active Medications Lorazepam (Ativan) 2 mg PO Q1HR PRN PRN Reason: CIWA-Ar 8-15 Lorazepam (Ativan) 4 mg PO Q1HR PRN PRN Reason: CIWA-Ar 16-25 Past psychiatric history - Past Medical History Past Medical History: other (Urinary Retention) Past Surgical History: Other - past Psychiatric treatment and history psychiatric treatment history: Inpatient psy settings in the past. Denies a fam psy hx. - Social History Social history: other (Homeless) Mental Status Exam - Vital signs Last Vital Signs Temp 98.5 F 08/10/18 10:59 Pulse 97 H 08/10/18 10:59 Resp 18 08/10/18 10:59 BP 124/77 08/10/18 10:59 Pulse Ox 95 08/10/18 10:59 - Exam Narrative exam: MSE: Appearance: calm, cooperative Behavior: regular eye contact Speech: regular rate with a low tone Mood: "depressed" Affect: congruent to mood Thought Process: circumstantial Thought Content: denies HI's and AVH's Motor Activity: sitting up in bed Cognition: A/O x3 Insight: vague Judgment: poor Results Result Diagrams: 08/09/18 Unknown 08/09/18 Unknown Abnormal lab results 08/09/18 08/09/18 08/09/18 Range/Units Unknown Unknown Unknown RDW 20.0 H (13.2-15.2) % Seg Neutrophils % 72.3 H (40.0-70.0) % Chloride 97.1 L (98-107) mmol/L Carbon Dioxide 18 L (22-30) mmol/L BUN 8 L (9-20) mg/dL Lipase 12 L (13-60) units/L Plasma/Serum Alcohol (0-0.07) % 08/09/18 Range/Units Unknown RDW (13.2-15.2) % Seg Neutrophils % (40.0-70.0) % Chloride (98-107) mmol/L Carbon Dioxide (22-30) mmol/L BUN (9-20) mg/dL Lipase (13-60) units/L Plasma/Serum Alcohol 0.19 H (0-0.07) % All other labs normal. Assessment and Plan Assessment and plan: Impression: MDD. Alcohol Use DO. Today the patient is calm, but vague during the assessment. The patient endorses SI's without a plan. DDx: R/O Bipolar DO, R/O Alcohol Induced Mood DO Recommendation/Plan: Continue 1013 and start Prozac 20 mg PO daily for depression. Discussed possible suicidality/medication induced millie with the patioent reference Prozac. Continue CIWA. Dispo: The patient was referred to inpatient psy services. Will staff with Dr Pool Cobos.
[2018-08-10] MEDS: PROzac PO SCH (13:18)
[2018-08-11] MEDS: PROzac PO SCH (10:15)
--- NOTE | 2018-08-11 14:32 | Progress Note ---
Subjective - Reason for Consult Consult date: 08/11/18 Reason for consult: Psychiatric Follow-up Evaluation - Chief Complaint Chief complaint: "Not too good. Depressed." Patient is 52 y.o. AA male presented to the ER for suprapubic abdominal pain 2 days. Prior to being discharged, the patient endorsed SI's. Today the patient is calm and cooperative during the assessment. He states, " I'm feeling suicidal. I haven't been taking my medication. I have nothing to live for. I'm suppose to be taking Zyprexa. I hear voices telling me to hurt myself by jumping off a bridge." Patient endorses SI's with plan, A/VH's, and delusions. Reports decrease sleep and appetite. Mental Status Exam - Vital signs Last Vital Signs Temp 98.1 F 08/11/18 00:45 Pulse 79 08/11/18 00:45 Resp 18 08/11/18 00:45 BP 122/68 08/11/18 00:45 Pulse Ox 95 08/11/18 00:45 - Exam Narrative exam: Mental Status Exam Appearance: calm, cooperative Behavior: regular eye contact Speech: regular rate with a low tone Mood: "depressed" Affect: congruent to mood Thought Process: circumstantial Thought Content: denies HI's . + SI's, AH's, and delusions Motor Activity: ambulatory Cognition: A/O x3 Insight: poor Judgment: poor Assessment and Plan Impression: MDD. Alcohol Use DO. Today the patient is calm and cooperative during the assessment. The patient endorses SI's with plan , AH's, and paranoid delusions. DDx: R/O Bipolar DO, R/O Alcohol Induced Mood DO Recommendation/Plan: 1. Continue 1013. 2. Continue Prozac 20 mg PO daily for depression. Discussed possible suicidality/medication induced millie with the patioent reference Prozac. Continue CIWA. 3. Start Zyprexa 5mg po QHS mood/psychosis. Discussed metabolic side effects. Disposition: The patient was referred to inpatient psychiatric services. Will staff with Dr. Pool Cobos.
[2018-08-12] MEDS: PROzac PO SCH (10:22)
--- NOTE | 2018-08-12 13:17 | Progress Note ---
Subjective - Reason for Consult Consult date: 08/12/18 Reason for consult: Psychiatry Follow-up - Chief Complaint Chief complaint: "I just drink" Patient is 52 y.o. AA male presented to the ER for suprapubic abdominal pain 2 days. Prior to being discharged, the patient endorsed SI's. Today the patient is calm and cooperative during the assessment. He continue to acknowledge AH's intermittently. He could not elaborate about what the voices are saying when asked. He is adamant that he like to drink (etoh), but is aware of the consequences of alcohol consumption (etoh). He denies HI's and VH's. He denies any side effects of his medications. Mental Status Exam - Vital signs Last Vital Signs Temp 98.8 F 08/12/18 02:19 Pulse 68 08/12/18 02:19 Resp 18 08/12/18 10:47 BP 127/75 08/12/18 02:19 Pulse Ox 98 08/12/18 10:47 - Exam Narrative exam: MSE: Appearance: calm, cooperative Behavior: regular eye contact Speech: regular rate with a low tone Mood: withdrawn Affect: flat Thought Process: circumstantial Thought Content: denies HI's and VH's Motor Activity: sitting up in bed Cognition: A/O x3 Insight: variable Judgment: poor Assessment and Plan Impression: MDD. Alcohol Use DO. Today the patient is calm and cooperative during the assessment. The patient endorses SI's without a plan. No acute withdrawals noted (etoh). DDx: R/O Bipolar DO, R/O Alcohol Induced Mood DO Recommendation/Plan: Continue 1013, Prozac 20 mg PO daily for depression, home medication Zyprexa 5 mg PO HS for psychosis/mood. Discussed possible suicidality/medication induced millie with the patioent reference Prozac. Discussed possible metabolic side effects of Zyprexa with the patient. Dispo: The patient was referred to inpatient psy services. Will staff with Dr Lemons.
[2018-08-13] MEDS: PROzac PO SCH (10:26)
--- NOTE | 2018-08-13 13:28 | Progress Note ---
Subjective - Reason for Consult Consult date: 08/13/18 Reason for consult: Psychiatry Follow-up - Chief Complaint Chief complaint: "I am okay" Patient is 52 y.o. AA male presented to the ER for suprapubic abdominal pain 2 days. Prior to being discharged, the patient endorsed SI's. Today the patient is calm and cooperative during the assessment. He stated that he was suicidal "possibly" the first day he was in the hospital. He stated that he mentioned being suicidal the other days because he needed help with his disability payment and finding a place to stay. He felt like [facility] could help him. He denies SI/HI's and AVH's. He stated that he will follow up with outpatient psy services when discharged. He denies any side effects of his medications. Mental Status Exam - Vital signs Last Vital Signs Temp 98.1 F 08/13/18 08:35 Pulse 58 L 08/13/18 08:35 Resp 18 08/13/18 08:35 BP 116/68 08/13/18 08:35 Pulse Ox 98 08/13/18 08:35 - Exam Narrative exam: MSE: Appearance: calm, cooperative Behavior: regular eye contact Speech: regular rate with and tone Mood: okay Affect: congruent to mood Thought Process: linear Thought Content: denies SI/HI's and VH's Motor Activity: sitting up in bed Cognition: A/O x3 Insight: appropriate Judgment: appropriate Assessment and Plan Impression: MDD. Alcohol Use DO. Today the patient is calm and cooperative during the assessment. The patient is no threat to self. DDx: R/O Bipolar DO, R/O Alcohol Induced Mood DO Recommendation/Plan: Rescind 1013 and continue Prozac 20 mg PO daily for depression and home medication Zyprexa 5 mg PO HS for psychosis/mood. Discussed possible suicidality/medication induced millie with the patioent reference Prozac. Discussed possible metabolic side effects of Zyprexa with the patient. Case Mgmt informed, the patient may need assistance with placement. Dispo: The patient can follow up with [facility] for outpatient psy services. Will staff with Dr Lemons.
[2018-08-15 11:39] VITALS: BP 147/95
== END 2018-08-13 14:23 | disposition home or self-care (01) ==
LOC: ED 21:32 → EEVIPCON 21:32 → ED 08-13 14:23
DX: F20.0 Paranoid schizophrenia (principal); R33.9 Retention of urine, unspecified; F10.129 Alcohol abuse with intoxication, unspecified; I10 Essential (primary) hypertension; E11.9 Type 2 diabetes mellitus without complications; F17.200 Nicotine dependence, unspecified, uncomplicated; Z88.0 Allergy status to penicillin
CPT/HCPCS: 36415; 51702; 80053; 80307; 81001; 82150; 83690; 83735; 85025; 96365; 96375; 99284; G0480; J1885; J2405; J3411; J7030; 80320

== ENCOUNTER 2018-08-15 23:31 | Emergency (ER) | payer MEDICAID ==
[2018-08-16 01:27] LABS: Basophils % (Auto) 0.7 % (0.0-1.8); Eosinophils % (Auto) 0.8 % (0.0-4.3); Hematocrit 40.7 % (35.5-45.6); Hemoglobin 13.2 gm/dl (11.8-15.2); Lymphocytes # (Auto) 2.1 K/mm3 (1.2-5.4); Lymphocytes % (Auto) 38.8 % (13.4-35.0); Mean Corpuscular HGB Conc 33 % (32-34); Mean Corpuscular Volume 86 fl (84-94); Monocytes # (Auto) 0.6 K/mm3 (0.0-0.8); Monocytes % (Auto) 10.4 % (0.0-7.3); Platelet Count 287 K/mm3 (140-440); Red Blood Count 4.76 M/mm3 (3.65-5.03); Red Cell Distribution Width 18.5 % (13.2-15.2)
[2018-08-16 01:46] LABS: BUN/Creatinine Ratio 16; Blood Urea Nitrogen 11 mg/dL (9-20); Calcium 9.1 mg/dL (8.4-10.2); Hemolysis Index 9
[2018-08-16 07:19] LABS: Bilirubin,Urine NEG (Negative); Blood,Urine NEG (Negative); Color,Urine Yellow (Yellow); Mucus,Urine FEW /HPF; Protein,Urine <15 mg/dL mg/dL (Negative); Urobilinogen,Urine < 2.0 mg/dL (<2.0)
[2018-08-16 07:39] LABS: Amphetamine Screen,Urine PRESUMPTIVE NEGATIVE; Benzodiazepines Screen,Urine PRESUMPTIVE NEGATIVE; Cannabinoid Screen,Urine PRESUMPTIVE NEGATIVE; Cocaine Screen,Urine PRESUMPTIVE NEGATIVE; Methadone Screen,Urine PRESUMPTIVE NEGATIVE; Opiate Screen,Urine PRESUMPTIVE NEGATIVE
[2018-08-16] MEDS ORDERED: HALDOL IM PRN (11:29)
[2018-08-16] MEDS ORDERED: LIBRIUM PO PRN (11:29)
[2018-08-16] MEDS ORDERED: ATIVAN IM PRN (11:29)
[2018-08-16] MEDS ORDERED: K-DUR PO ONE ×2 (11:29→13:00)
[2018-08-16] MEDS ORDERED: ATIVAN IV PRN ×3 (11:29)
--- NOTE | 2018-08-16 11:44 | Emergency Department Report ---
ED General Adult HPI - General Chief complaint: Psych Stated complaint: MH EVAL/SUICIDAL Time Seen by Provider: 08/16/18 11:14 Source: patient, RN notes reviewed, old records reviewed Mode of arrival: Ambulatory Limitations: No Limitations - History of Present Illness Initial comments: This is a 52-year-old gentleman whom I have evaluated in the past. His past medical history includes alcohol dependence, consumption, presumed GERD, gastritis, and pancreatitis. Patient presents today with a complaint of alcohol withdrawal. He endorses hallucinations, and suicidality. He denies physical pain. He thinks he might overdose. He indicates that he is attempted to overdose in the past. Symptoms appear to be constant, did not radiate anywhere, typically decrease with alcohol consumption. -: Gradual Consistency: constant Improves with: other Worsens with: other Associated Symptoms: loss of appetite, malaise, weakness, other. denies: confusion, chest pain, cough, diaphoresis, fever/chills, headaches, nausea/vomiting, rash, shortness of breath, syncope - Related Data Previous Rx's Medication Instructions Recorded Last Taken Type Famotidine [Pepcid] 20 mg PO BID #30 tablet 06/20/18 Unknown Rx chlordiazePOXIDE [Librium] 25 mg PO Q6H PRN #30 capsule 06/20/18 Unknown Rx Pantoprazole [Protonix] 40 mg PO BID #60 tablet 06/22/18 Unknown Rx Sucralfate 1 gm PO QID 30 Days tablet 06/22/18 Unknown Rx oxyCODONE /ACETAMINOPHEN [Percocet 1 tab PO Q4HR #12 tab 06/22/18 Unknown Rx 5/325] FLUoxetine [PROzac] 20 mg PO QDAY #30 capsule 08/13/18 Unknown Rx OLANzapine [ZyPREXA] 5 mg PO QHS #30 tablet 08/13/18 Unknown Rx Allergies Allergy/AdvReac Type Severity Reaction Status Date / Time Penicillins Allergy Hives Verified 06/20/18 01:28 ED Review of Systems ROS: Stated complaint: MH EVAL/SUICIDAL Other details as noted in HPI Constitutional: malaise. denies: fever Eyes: denies: vision change ENT: denies: epistaxis Respiratory: denies: cough Cardiovascular: denies: chest pain Gastrointestinal: denies: vomiting Genitourinary: denies: dysuria Musculoskeletal: arthralgia, myalgia Skin: denies: lesions Neurological: weakness Psychiatric: auditory hallucinations, suicidal thoughts ED Past Medical Hx - Past Medical History Previous Medical History?: Yes Hx Hypertension: Yes Hx Congestive Heart Failure: No Hx Diabetes: Yes Hx Psychiatric Treatment: Yes (paranoid schizophrenia) Hx Asthma: No Additional medical history: Umbillical hernia, colon polyps. colaspe lung/ CIRRHOIS, pancreatitis, ETOH abuse - Surgical History Past Surgical History?: Yes Additional Surgical History: ankle right surgery, Hernia - Social History Smoking Status: Never Smoker Substance Use Type: Alcohol - Medications Home Medications: Home Medications Medication Instructions Recorded Confirmed Last Taken Type Famotidine [Pepcid] 20 mg PO BID #30 tablet 06/20/18 08/10/18 Unknown Rx chlordiazePOXIDE [Librium] 25 mg PO Q6H PRN #30 capsule 06/20/18 08/10/18 Unknown Rx Pantoprazole [Protonix] 40 mg PO BID #60 tablet 06/22/18 08/10/18 Unknown Rx Sucralfate 1 gm PO QID 30 Days tablet 06/22/18 08/10/18 Unknown Rx oxyCODONE /ACETAMINOPHEN [Percocet 1 tab PO Q4HR #12 tab 06/22/18 08/10/18 Unknown Rx 5/325] FLUoxetine [PROzac] 20 mg PO QDAY #30 capsule 08/13/18 Unknown Rx OLANzapine [ZyPREXA] 5 mg PO QHS #30 tablet 08/13/18 Unknown Rx ED Physical Exam - General Limitations: No Limitations General appearance: alert, in distress - Head Head exam: Present: atraumatic, normocephalic - Eye Eye exam: Present: normal appearance, EOMI - ENT ENT exam: Present: mucous membranes dry, normal external ear exam, other (tongue fasciculations noted) - Neck Neck exam: Present: normal inspection, full ROM. Absent: tenderness, meningismus - Respiratory Respiratory exam: Present: normal lung sounds bilaterally. Absent: respiratory distress, wheezes, rales, rhonchi, stridor, chest wall tenderness, accessory muscle use, decreased breath sounds, prolonged expiratory - Cardiovascular Cardiovascular Exam: Present: normal rhythm, tachycardia, normal heart sounds. Absent: systolic murmur, diastolic murmur, rubs, gallop - GI/Abdominal GI/Abdominal exam: Present: soft. Absent: distended, tenderness, guarding, rebound, rigid, pulsatile mass - Rectal Rectal exam: Present: deferred - Extremities Exam Extremities exam: Present: normal inspection, full ROM, pedal edema, other (2+ pulses noted in the bilateral upper, lower extremities. Compartments soft. No long bony tenderness. The pelvis is stable.). Absent: calf tenderness - Back Exam Back exam: Present: normal inspection, full ROM. Absent: paraspinal tenderness, vertebral tenderness - Neurological Exam Neurological exam: Present: alert, oriented X3, CN II-XII intact, normal gait, other (Extraocular movements intact. Tongue midline. No facial droop. Facial sensation intact to light touch in the V1, V2, V3 distribution bilaterally. 5 and 5 strength in 4 extremities.. Sensation is intact to light touch in 4 extremities.). Absent: motor sensory deficit - Psychiatric Psychiatric exam: Present: anxious, suicidal ideation - Skin Skin exam: Present: warm, dry, intact, normal color. Absent: rash ED Course Vital Signs 08/15/18 08/15/18 08/16/18 23:37 23:57 12:14 Temperature 98.6 F 98.6 F 98.9 F Pulse Rate 107 H 107 H 97 H Respiratory 18 18 20 Rate Blood Pressure 122/79 122/79 Blood Pressure 137/67 [Left] O2 Sat by Pulse 95 96 97 Oximetry ED Medical Decision Making - Lab Data Result diagrams: 08/16/18 01:08 08/16/18 01:08 Vital Signs 08/15/18 08/15/18 08/16/18 23:37 23:57 12:14 Temperature 98.6 F 98.6 F 98.9 F Pulse Rate 107 H 107 H 97 H Respiratory 18 18 20 Rate Blood Pressure 122/79 122/79 Blood Pressure 137/67 [Left] O2 Sat by Pulse 95 96 97 Oximetry Lab Results 08/16/18 08/16/18 08/16/18 Range/Units 01:08 01:08 01:08 WBC (4.5-11.0) K/mm3 RBC (3.65-5.03) M/mm3 Hgb (11.8-15.2) gm/dl Hct (35.5-45.6) % MCV (84-94) fl MCH (28-32) pg MCHC (32-34) % RDW (13.2-15.2) % Plt Count (140-440) K/mm3 Lymph % (Auto) (13.4-35.0) % [place] % (Auto) (0.0-7.3) % Eos % (Auto) (0.0-4.3) % Baso % (Auto) (0.0-1.8) % Lymph # (1.2-5.4) K/mm3 Cherokee # (0.0-0.8) K/mm3 Eos # (0.0-0.4) K/mm3 Baso # (0.0-0.1) K/mm3 Seg Neutrophils % (40.0-70.0) % Seg Neutrophils # (1.8-7.7) K/mm3 Sodium 141 (137-145) mmol/L Potassium 3.2 L (3.6-5.0) mmol/L Chloride 97.7 L (98-107) mmol/L Carbon Dioxide 26 (22-30) mmol/L Anion Gap 21 mmol/L BUN 11 (9-20) mg/dL Creatinine 0.7 L (0.8-1.5) mg/dL Estimated GFR > 60 ml/min BUN/Creatinine Ratio 16 % Glucose 126 H (75-100) mg/dL Calcium 9.1 (8.4-10.2) mg/dL Urine Color (Yellow) Urine Turbidity (Clear) Urine pH (5.0-7.0) Ur Specific Otto (1.003-1.030) Urine Protein (Negative) mg/dL Urine Glucose (UA) (Negative) mg/dL Urine Ketones (Negative) mg/dL Urine Blood (Negative) Urine Nitrite (Negative) Urine Bilirubin (Negative) Urine Urobilinogen (<2.0) mg/dL Ur Leukocyte Esterase (Negative) Urine WBC (Auto) (0.0-6.0) /HPF Urine RBC (Auto) (0.0-6.0) /HPF U Epithel Cells (Auto) (0-13.0) /HPF Urine Mucus /HPF Salicylates < 0.3 L (2.8-20.0) mg/dL Urine Opiates Screen Urine Methadone Screen Acetaminophen 5.1 L (10.0-30.0) ug/mL Ur Barbiturates Screen Ur Phencyclidine Scrn Ur Amphetamines Screen U Benzodiazepines Scrn Urine Cocaine Screen U Marijuana (THC) Screen Drugs of Abuse Note Plasma/Serum Alcohol (0-0.07) % 08/16/18 08/16/18 08/16/18 Range/Units 01:08 01:08 07:04 WBC 5.3 (4.5-11.0) K/mm3 RBC 4.76 (3.65-5.03) M/mm3 Hgb 13.2 (11.8-15.2) gm/dl Hct 40.7 (35.5-45.6) % MCV 86 (84-94) fl MCH 28 (28-32) pg MCHC 33 (32-34) % RDW 18.5 H (13.2-15.2) % Plt Count 287 (140-440) K/mm3 Lymph % (Auto) 38.8 H (13.4-35.0) % Cherokee % (Auto) 10.4 H (0.0-7.3) % Eos % (Auto) 0.8 (0.0-4.3) % Baso % (Auto) 0.7 (0.0-1.8) % Lymph # 2.1 (1.2-5.4) K/mm3 Cherokee # 0.6 (0.0-0.8) K/mm3 Eos # 0.0 (0.0-0.4) K/mm3 Baso # 0.0 (0.0-0.1) K/mm3 Seg Neutrophils % 49.3 (40.0-70.0) % Seg Neutrophils # 2.6 (1.8-7.7) K/mm3 Sodium (137-145) mmol/L Potassium (3.6-5.0) mmol/L Chloride (98-107) mmol/L Carbon Dioxide (22-30) mmol/L Anion Gap mmol/L BUN (9-20) mg/dL Creatinine (0.8-1.5) mg/dL Estimated GFR ml/min BUN/Creatinine Ratio % Glucose (75-100) mg/dL Calcium (8.4-10.2) mg/dL Urine Color Yellow (Yellow) Urine Turbidity Clear (Clear) Urine pH 5.0 (5.0-7.0) Ur Specific Otto 1.016 (1.003-1.030) Urine Protein <15 mg/dl (Negative) mg/dL Urine Glucose (UA) Neg (Negative) mg/dL Urine Ketones Neg (Negative) mg/dL Urine Blood Neg (Negative) Urine Nitrite Neg (Negative) Urine Bilirubin Neg (Negative) Urine Urobilinogen < 2.0 (<2.0) mg/dL Ur Leukocyte Esterase Tr (Negative) Urine WBC (Auto) 11.0 H (0.0-6.0) /HPF Urine RBC (Auto) 2.0 (0.0-6.0) /HPF U Epithel Cells (Auto) < 1.0 (0-13.0) /HPF Urine Mucus Few /HPF Salicylates (2.8-20.0) mg/dL Urine Opiates Screen Urine Methadone Screen Acetaminophen (10.0-30.0) ug/mL Ur Barbiturates Screen Ur Phencyclidine Scrn Ur Amphetamines Screen U Benzodiazepines Scrn Urine Cocaine Screen U Marijuana (THC) Screen Drugs of Abuse Note Plasma/Serum Alcohol 0.25 H (0-0.07) % 08/16/18 Range/Units 07:04 WBC (4.5-11.0) K/mm3 RBC (3.65-5.03) M/mm3 Hgb (11.8-15.2) gm/dl Hct (35.5-45.6) % MCV (84-94) fl MCH (28-32) pg MCHC (32-34) % RDW (13.2-15.2) % Plt Count (140-440) K/mm3 Lymph % (Auto) (13.4-35.0) % Cherokee % (Auto) (0.0-7.3) % Eos % (Auto) (0.0-4.3) % Baso % (Auto) (0.0-1.8) % Lymph # (1.2-5.4) K/mm3 Cherokee # (0.0-0.8) K/mm3 Eos # (0.0-0.4) K/mm3 Baso # (0.0-0.1) K/mm3 Seg Neutrophils % (40.0-70.0) % Seg Neutrophils # (1.8-7.7) K/mm3 Sodium (137-145) mmol/L Potassium (3.6-5.0) mmol/L Chloride (98-107) mmol/L Carbon Dioxide (22-30) mmol/L Anion Gap mmol/L BUN (9-20) mg/dL Creatinine (0.8-1.5) mg/dL Estimated GFR ml/min BUN/Creatinine Ratio % Glucose (75-100) mg/dL Calcium (8.4-10.2) mg/dL Urine Color (Yellow) Urine Turbidity (Clear) Urine pH (5.0-7.0) Ur Specific Otto (1.003-1.030) Urine Protein (Negative) mg/dL Urine Glucose (UA) (Negative) mg/dL Urine Ketones (Negative) mg/dL Urine Blood (Negative) Urine Nitrite (Negative) Urine Bilirubin (Negative) Urine Urobilinogen (<2.0) mg/dL Ur Leukocyte Esterase (Negative) Urine WBC (Auto) (0.0-6.0) /HPF Urine RBC (Auto) (0.0-6.0) /HPF U Epithel Cells (Auto) (0-13.0) /HPF Urine Mucus /HPF Salicylates (2.8-20.0) mg/dL Urine Opiates Screen Presumptive negative Urine Methadone Screen Presumptive negative Acetaminophen (10.0-30.0) ug/mL Ur Barbiturates Screen Presumptive positive Ur Phencyclidine Scrn Presumptive negative Ur Amphetamines Screen Presumptive negative U Benzodiazepines Scrn Presumptive negative Urine Cocaine Screen Presumptive negative U Marijuana (THC) Screen Presumptive negative Drugs of Abuse Note Disclamer Plasma/Serum Alcohol (0-0.07) % - Medical Decision Making Differential diagnosis, including not limited to: Alcohol dependence, alcohol withdrawal, suicidality Assessment and plan: 52-year-old gentleman with hallucinations, suicidality, known history of alcohol dependence, with stigmata of alcohol withdrawal, including tachycardia, tongue fasciculations, and extremity tremors. Patient tachycardic and hypertensive. He is placed on a 1013. Patient is amenable to IV fluids and intravenous benzodiazepines. He is started on the ciwa protocol Psychiatric consultation has been requested, and the patient will be placed in a monitored setting. His potassium will be repleted, and we will administer a banana bag. His initial ciwa score is 24 Case presented to the Hospital physician, Dr. Perez, who has accepted the patient to the medical service. Inpatient psychiatric consultation may follow in parallel. Critical care attestation.: If time is entered above; I have spent that time in minutes in the direct care of this critically ill patient, excluding procedure time. ED Disposition Clinical Impression: Alcohol withdrawal, Suicidal ideations Disposition: DC-09 OP ADMIT IP TO THIS HOSP Is pt being admited?: Yes Condition: Fair Referrals: NED MATHIS [Primary Care Provider] - 3-5 Days
[2018-08-16] MEDS ORDERED: K-DUR PO SCH (12:00)
[2018-08-16] MEDS ORDERED: KLOR-CON 8 PO SCH (12:00)
--- NOTE | 2018-08-16 12:47 | Event Note ---
Date: 08/16/18 Patient evaluated for Hallucinations and ETOH dependence Not tremulous k 3.2 Etoh level 0.25 Patient not in DT's Can be managed in psych unit Needs Ativan 1 mg po q6 prn for withdrawal symptoms and Psych treatment Needs emergent treatment for his Psychosis Medically cleared to go to Psych facility Potassium supplemented
[2018-08-16] MEDS ORDERED: VITAMIN B-1 PO ONE ×2 (13:00→17:00)
[2018-08-16] MEDS ORDERED: FOLVITE 1 MG, INFUVITE 10 ML in NACL 0.9% 1000 ML 1,000 ML IV ONE (13:00)
[2018-08-16] MEDS ORDERED: MAGNESIUM SULFATE 2GM/50ML 2 GM/50 ML BAG IV ONE (13:01)
[2018-08-16] MEDS: PROTONIX PO SCH ×2 (13:10→23:50)
[2018-08-16] MEDS: PEPCID PO SCH ×2 (13:10→23:50)
[2018-08-16] MEDS ORDERED: ROCEPHIN/NS 2 GM/100 ML 2 GM/100 ML BAG IV SCH (14:00)
[2018-08-16] MEDS: CARAFATE PO SCH ×3 (16:00→23:50)
[2018-08-16 18:57] LABS: BUN/Creatinine Ratio 20; Blood Urea Nitrogen 12 mg/dL (9-20); Calcium 8.5 mg/dL (8.4-10.2); Hemolysis Index 64
[2018-08-16] MEDS ORDERED: ATIVAN PO PRN (20:35)
--- NOTE | 2018-08-16 20:35 | Event Note ---
Date: 08/16/18 Patient reevaluated Sleeping wakes up easily. No tremulousness or agitation c/o hallucinations K level Mg levels are normal Etoh level less than 0.1 Not suicidal or Homicidal CiWA score zero Patient medically cleared for discharge to psych facility Ativan 1mg po q4 prn In[address] Dr Loomis about patient disposition to Psych facility Requested her to call us back if he needs admission
[2018-08-17] MEDS: CARAFATE PO SCH ×4 (09:56→21:44)
[2018-08-17] MEDS: PROTONIX PO SCH ×2 (09:57→21:44)
[2018-08-17] MEDS: PEPCID PO SCH ×2 (09:57→21:44)
--- NOTE | 2018-08-17 12:53 | Consultation ---
Addendum entered and electronically signed by JENSEN WINCHESTER NP 08/17/18 13:10: Impression: The patient positive for Bartbituates. Original Note: History of Present Illness - Reason for Consult Consult date: 08/17/18 Reason for consult: Mental Health Evaluation Requesting physician: BETTY ESPINOZA - Chief Complaint Chief complaint: "I was hearing voices" - History of Present Psychiatric Illness 52 y.o. AA male who presented to the ER for ETOH and SI's. This patient is known to me. Today the patient is vague during the assessment. He did state that he was hearing voices and endorsed SI's. He would not confirm or deny a suicide plan. Also, he reply to most questions with one word answers. No gestures of HI's. Medications and Allergies Allergies Allergy/AdvReac Type Severity Reaction Status Date / Time Penicillins Allergy Hives Verified 06/20/18 01:28 Home Medications Medication Instructions Recorded Confirmed Last Taken Type Famotidine [Pepcid] 20 mg PO BID #30 tablet 06/20/18 08/17/18 Unknown Rx chlordiazePOXIDE [Librium] 25 mg PO Q6H PRN #30 capsule 06/20/18 08/17/18 Unknown Rx Pantoprazole [Protonix] 40 mg PO BID #60 tablet 06/22/18 08/17/18 Unknown Rx Sucralfate 1 gm PO QID 30 Days tablet 06/22/18 08/17/18 Unknown Rx oxyCODONE /ACETAMINOPHEN [Percocet 1 tab PO Q4HR #12 tab 06/22/18 08/17/18 Unknown Rx 5/325] FLUoxetine [PROzac] 20 mg PO QDAY #30 capsule 08/13/18 08/17/18 Unknown Rx OLANzapine [ZyPREXA] 5 mg PO QHS #30 tablet 08/13/18 08/17/18 Unknown Rx Active Meds: Active Medications Chlordiazepoxide HCl (Librium) 50 mg PO Q1HR PRN PRN Reason: CIWA-Ar 8-15 Chlordiazepoxide HCl (Librium) 25 mg PO Q6H PRN PRN Reason: Alcohol Withdrawal Famotidine (Pepcid) 20 mg PO BID JOAN Last Admin: 08/17/18 09:57 Dose: 20 mg Documented by: Haloperidol Lactate (Haldol) 5 mg IM Q6HR PRN PRN Reason: Agitation Lorazepam (Ativan) 2 mg IM Q4HR PRN PRN Reason: Agitation Lorazepam (Ativan) 2 mg IV Q1HR PRN PRN Reason: CIWA-Ar 8-15 Last Admin: 08/16/18 21:35 Dose: 2 mg Documented by: Lorazepam (Ativan) 4 mg IV Q1HR PRN PRN Reason: CIWA-Ar 16-25 Last Admin: 08/16/18 13:47 Dose: 4 mg Documented by: Lorazepam (Ativan) 4 mg IV Q15MIN PRN PRN Reason: CIWA-Ar >25 Lorazepam (Ativan) 1 mg PO Q4H PRN PRN Reason: Agitation Pantoprazole Sodium (Protonix) 40 mg PO BID [facility] Last Admin: 08/17/18 09:57 Dose: 40 mg Documented by: Sucralfate (Carafate) 1 gm PO QID [facility] Last Admin: 08/17/18 09:56 Dose: 1 gm Documented by: Past psychiatric history - Past Medical History Past Medical History: diabetes, hypertension Past Surgical History: No surgical history - past Psychiatric treatment and history psychiatric treatment history: Several inpatient psy settings in the past. Denies a fam psy hx. - Social History Social history: other (Homeless) Mental Status Exam - Vital signs Last Vital Signs Temp 97.9 F 08/17/18 08:19 Pulse 71 08/17/18 08:19 Resp 18 08/17/18 08:19 BP 129/73 08/17/18 08:19 Pulse Ox 98 08/17/18 08:19 - Exam Narrative exam: MSE: Appearance: disheveled Behavior: poor eye contact Speech: regular rate with and tone Mood: "depressed" Affect: congruent to mood Thought Process: circumstantial Thought Content: no gestures of HI's Motor Activity: sitting up in bed Cognition: A/O x3 Insight: poor Judgment: poor Results Result Diagrams: 08/16/18 01:08 08/16/18 18:11 Abnormal lab results 08/16/18 08/16/18 08/16/18 Range/Units 01:28 13:31 18:11 Creatinine (0.8-1.5) mg/dL Magnesium 0.20 L* 2.70 H (1.7-2.3) mg/dL Total Creatine Kinase 364 H (55-170) units/L 08/16/18 Range/Units 18:11 Creatinine 0.6 L (0.8-1.5) mg/dL Magnesium (1.7-2.3) mg/dL Total Creatine Kinase (55-170) units/L All other labs normal. Assessment and Plan Assessment and plan: Impression: MDD. Alcohol Use DO. Today the patient is vague during the assessment. Mild to moderate tremors noted (ETOH). The patient endorses SI's. DDx: R/O Bipolar DO, R/O Alcohol Induced Mood DO, R/O Substance Induced Psychosis Recommendation/Plan: Transition 1012 to 2012. Continue CIWA. Start home medications Prozac 20 mg PO daily and Zyprexa 5 mg PO HS Discussed possible suicidality/medication induced millie with the patient reference Prozac. Discussed possible metabolic side effects of Zyprexa with the patient. Dispo: The patient was referred to inpatient psy services. Will staff with Dr Carlos Cobos.
[2018-08-17] MEDS: PROzac PO SCH (15:10)
[2018-08-17] MEDS: LIBRIUM PO PRN ×2 (16:36→21:45)
[2018-08-18] MEDS: LIBRIUM PO PRN ×3 (04:56→22:28)
[2018-08-18] MEDS: CARAFATE PO SCH ×4 (10:52→22:28)
[2018-08-18] MEDS: PEPCID PO SCH ×2 (10:52→22:27)
[2018-08-18] MEDS: PROzac PO SCH (10:52)
[2018-08-18] MEDS: PROTONIX PO SCH ×2 (10:52→22:27)
--- NOTE | 2018-08-18 14:12 | Progress Note ---
Subjective - Reason for Consult Consult date: 08/18/18 Reason for consult: Psychiatric Follow-up Evaluation - Chief Complaint Chief complaint: "I feel better" Patient is a 52 y.o. AA male who presented to the emergency room for alcohol use and suicidal ideations. This patient is known to me. The patient is calm and cooperative during the assessment. He reports that his mood/psychosis is improved with the medication. He states, " since I've started my Zyprexa I do not feel suicidal." He denies SI/HI's, A/VH's, and delusions. He endorses fair appetite and poor sleep. Patient reports medication compliance. He denies any side effects to his medications. Mental Status Exam - Vital signs Last Vital Signs Temp 97.8 F 08/18/18 07:58 Pulse 85 08/18/18 07:58 Resp 18 08/18/18 07:58 BP 123/82 08/18/18 07:58 Pulse Ox 95 08/18/18 07:58 - Exam Narrative exam: Mental Status Exam Appearance: disheveled Behavior: poor eye contact Speech: regular rate with and tone Mood: "better" Affect: congruent to mood Thought Process: circumstantial Thought Content: no gestures of SI/HI's, A/VH's, and delusions Motor Activity: ambulatory Cognition: A/O x3 Insight: variable Judgment: variable Assessment and Plan Impression: MDD. Alcohol Use DO. Today the patient is calm and cooperative during the assessment. He reports poor sleep. He denies SI/HI's, A/VH's, and delusions. DDx: R/O Bipolar DO, R/O Alcohol Induced Mood DO, R/O Substance Induced Psychosis Recommendation/Plan: 1. Continue 2012. Will reassess in 24 hours. 2. Continue CI. 3. Contiue Prozac 20 mg PO daily. Discussed possible suicidality/medication induced millie with the patient reference Prozac. 4. Increase Zyprexa 10 mg PO HS. Discussed possible metabolic side effects of Zyprexa with the patient. 5. Start Trazodone 50mg po QHS PRN insomnia. Discussed the possible side effects. Disposition: If 2013 is rescinded on 08/19/18, patient is to follow-up at [facility] for outpatient services. Will staff with Dr. Pool Cobos.
[2018-08-18] MEDS ORDERED: DESYREL PO PRN (18:59)
--- NOTE | 2018-08-19 10:21 | Progress Note ---
Subjective - Reason for Consult Consult date: 08/19/18 Reason for consult: Psychiatry Follow-up - Chief Complaint Chief complaint: "Steph" Patient is a 52 y.o. AA male who presented to the emergency room for alcohol use and suicidal ideations. This patient is known to me. The patient is calm and cooperative during the assessment. He stated having an "okay" night when asked. His thought process was circumstantial throughout he interview. He stated that he plan to do the right things about his life when discharged. He denies SI/HI's and AVH's. He denies any side effects of his medications. Mental Status Exam - Vital signs Last Vital Signs Temp 98.0 F 08/19/18 06:16 Pulse 80 08/19/18 06:16 Resp 18 08/19/18 06:16 BP 149/81 08/19/18 06:16 Pulse Ox 96 08/19/18 06:16 - Exam Narrative exam: MSE: Appearance: disheveled Behavior: regular eye contact Speech: regular rate with and tone Mood: "okay" Affect: congruent to mood Thought Process: circumstantial Thought Content: denies SI/Hi's and AVH's Motor Activity: sitting up in bed Cognition: A/O x3 Insight: variable Judgment: variable Assessment and Plan Impression: MDD. Alcohol Use DO. Today the patient is calm and cooperative during the assessment. DDx: R/O Bipolar DO, R/O Alcohol Induced Mood DO, R/O Substance Induced Psychosis Recommendation/Plan: Reevaluate 2013 in 24 hours. and continue home medications Prozac 20 mg PO daily and Zyprexa 5 mg PO HS Discussed possible suicidality/medication induced millie with the patient reference Prozac. Discussed possible metabolic side effects of Zyprexa with the patient. Dispo: If the patient's 2013 is rescinded in 24 hours, he can follow up with [facility] or [facility] for outpatient psy services. Will staff with Dr Lemons.
[2018-08-19] MEDS: CARAFATE PO SCH ×4 (10:38→22:05)
[2018-08-19] MEDS: PROTONIX PO SCH ×2 (10:39→21:39)
[2018-08-19] MEDS: PROzac PO SCH (10:39)
[2018-08-19] MEDS: PEPCID PO SCH ×2 (10:39→21:39)
[2018-08-19] MEDS ORDERED: CARAFATE ONE (21:38)
[2018-08-20] MEDS: PROzac PO SCH (10:05)
[2018-08-20] MEDS: PROTONIX PO SCH (10:05)
[2018-08-20] MEDS: PEPCID PO SCH (10:05)
[2018-08-20] MEDS: CARAFATE PO SCH (10:05)
--- NOTE | 2018-08-20 10:28 | Progress Note ---
Subjective - Reason for Consult Consult date: 08/20/18 Reason for consult: Psychiatry Follow-up - Chief Complaint Chief complaint: "I am better" Patient is a 52 y.o. AA male who presented to the emergency room for alcohol use and suicidal ideations. This patient is known to me. The patient is calm and cooperative during the assessment. He stated that he is much better. He stated that he will not return to the hospital. He stated he will follow up with [facility] for outpatient psy services. He denies SI/HI's and AVH's. He denies any side effects of his medications. Mental Status Exam - Vital signs Last Vital Signs Temp 98.8 F 08/19/18 22:00 Pulse 80 08/19/18 22:00 Resp 16 08/19/18 22:00 BP 132/79 08/19/18 22:00 Pulse Ox 96 08/19/18 22:00 - Exam Narrative exam: MSE: Appearance: calm, cooperative Behavior: regular eye contact Speech: regular rate with and tone Mood: "okay" Affect: congruent to mood Thought Process: linear Thought Content: denies SI/HI's and AVH's Motor Activity: sitting up in bed Cognition: A/O x3 Insight: appropriate Judgment: appropriate Assessment and Plan Impression: MDD. Alcohol Use DO. Today the patient is calm and cooperative during the assessment. The patent is no threat to self. DDx: R/O Bipolar DO, R/O Alcohol Induced Mood DO, R/O Substance Induced Psychosis Recommendation/Plan: Rescind 1013. and continue home medications Prozac 20 mg PO daily and Zyprexa 5 mg PO HS Discussed possible suicidality/medication induced millie with the patient reference Prozac. Discussed possible metabolic side effects of Zyprexa with the patient. Case Mgmt involvement, the patient may need assistance with placement. Dispo: The patient can follow up at [facility] or [facility] for outpatient psy services. Will staff with Dr Lemons.
--- NOTE | 2018-08-20 10:51 | Emergency Department Report ---
Blank Doc - Documentation Documentation: This patient has been here for the past 5 days for alcohol intoxication, alcohol withdrawal and was originally made a 1013 secondary to some comments that he made that expressed some suicidal ideations. The patient has been seen multiple times by the psych team. He has been on Prozac and Zyprexa. He has been on an alcohol withdrawal protocol. Today the patient was seen by the psychiatric team who recommended rescinding the 1013. I saw the patient as well and he is calm, appropriate. He denies any suicidal or homicidal ideations or any hallucinations. He does not appear to have any current signs of alcohol withdrawal. Vital signs stable throughout his ED course. At the psych team's recommendation, the patient will be discharged home on his Prozac and Zyprexa. He has been given referrals for outpatient psychiatric follow-up at [facility] and [facility]. The patient will return to the ER with any worsening of his symptoms or any acute distress.
[2018-08-20 17:27] VITALS: BP 114/63
== END 2018-08-20 10:45 | disposition admitted as inpatient to this hospital (09) ==
LOC: EEVIPCON 23:31 → ED 23:31
DX: F32.9 Major depressive disorder, single episode, unspecified (principal); F10.239 Alcohol dependence with withdrawal, unspecified; I10 Essential (primary) hypertension; E11.9 Type 2 diabetes mellitus without complications; F20.0 Paranoid schizophrenia; Z88.0 Allergy status to penicillin
CPT/HCPCS: 36415; 80048; 80307; 81001; 82550; 83735; 85025; 96365; 96367; 96368; 96372; 96375; 96376; 99284; G0480; J0696; J2060; J3475; J7030; 80320

== ENCOUNTER 2018-11-02 04:11 | Emergency (ER) | payer MEDICAID ==
[2018-11-02] MEDS ORDERED: ASPIRIN PO ONE (04:19)
[2018-11-02 04:46] LABS: Basophils # (Auto) 0.1 K/mm3 (0.0-0.1); Basophils % (Auto) 0.8 % (0.0-1.8); Eosinophils % (Auto) 0.3 % (0.0-4.3); Hematocrit 41.7 % (35.5-45.6); Hemoglobin 13.4 gm/dl (11.8-15.2); Lymphocytes % (Auto) 31.6 % (13.4-35.0); Mean Corpuscular HGB Conc 32 % (32-34); Mean Corpuscular Volume 82 fl (84-94); Monocytes # (Auto) 0.8 K/mm3 (0.0-0.8); Monocytes % (Auto) 12.4 % (0.0-7.3); Platelet Count 280 K/mm3 (140-440); Red Blood Count 5.08 M/mm3 (3.65-5.03); Red Cell Distribution Width 16.3 % (13.2-15.2)
[2018-11-02 05:10] LABS: BUN/Creatinine Ratio 7; Blood Urea Nitrogen 6 mg/dL (9-20); Hemolysis Index 5
--- NOTE | 2018-11-02 05:12 | XRay Report ---
PROCEDURE: XR CHEST 1V AP TECHNIQUE: A single view the chest was obtained. HISTORY: Chest Pain COMPARISONS: 06/20/2018 FINDINGS: The heart size and mediastinum appear normal. The lungs are clear. Pleural fluid is not seen. The ske letal structures do not show any acute changes. IMPRESSION: No acute cardiopulmonary process.. This document is electronically signed by Luis Sanderson MD., November 02 2018 05:09:47 AM ET
--- NOTE | 2018-11-02 09:25 | Emergency Department Report ---
ED General Adult HPI - General Chief complaint: Psych Stated complaint: SUICIDAL Time Seen by Provider: 11/02/18 08:48 Source: patient Mode of arrival: Ambulatory Limitations: No Limitations - History of Present Illness Initial comments: Patient presents to the emergency department with a chief complaint of auditory hallucinations and suicidal thoughts. Patient has a history of schizophrenia and states he has not taken his medications in 5 months. Patient complains of voices telling him to jump from the window of his apartment. Patient has had a prior suicide attempt via jumping from a window. Patient also states that he drinks a fifth of liquor daily and a 6 pack of beer and feels like he is in withdrawal. Patient denies chest pain, shortness breath, or headache. -: Gradual Severity scale (0 -10): 0 Consistency: constant Improves with: none Worsens with: none Associated Symptoms: denies other symptoms - Related Data Previous Rx's Medication Instructions Recorded Last Taken Type Famotidine [Pepcid] 20 mg PO BID #30 tablet 06/20/18 Unknown Rx chlordiazePOXIDE [Librium] 25 mg PO Q6H PRN #30 capsule 06/20/18 Unknown Rx Pantoprazole [Protonix] 40 mg PO BID #60 tablet 06/22/18 Unknown Rx Sucralfate 1 gm PO QID 30 Days tablet 06/22/18 Unknown Rx oxyCODONE /ACETAMINOPHEN [Percocet 1 tab PO Q4HR #12 tab 06/22/18 Unknown Rx 5/325] FLUoxetine [PROzac] 20 mg PO QDAY #30 capsule 08/13/18 Unknown Rx OLANzapine [ZyPREXA] 5 mg PO QHS #30 tablet 08/13/18 Unknown Rx FLUoxetine [PROzac] 20 mg PO DAILY #20 capsule 08/20/18 Unknown Rx OLANzapine [ZyPREXA] 10 mg PO HS #20 tablet 08/20/18 Unknown Rx Allergies Allergy/AdvReac Type Severity Reaction Status Date / Time Penicillins Allergy Hives Verified 06/20/18 01:28 ED Review of Systems ROS: Stated complaint: SUICIDAL Other details as noted in HPI Constitutional: denies: chills, fever Eyes: denies: eye pain, eye discharge, vision change ENT: denies: ear pain, throat pain Respiratory: denies: cough, shortness of breath, wheezing Cardiovascular: denies: chest pain, palpitations Endocrine: no symptoms reported Gastrointestinal: denies: abdominal pain, nausea, diarrhea Genitourinary: denies: urgency, dysuria Musculoskeletal: denies: back pain, joint swelling, arthralgia Skin: denies: rash, lesions Neurological: denies: headache, weakness, paresthesias Psychiatric: auditory hallucinations, suicidal thoughts. denies: anxiety, depression Hematological/Lymphatic: denies: easy bleeding, easy bruising ED Past Medical Hx - Past Medical History Previous Medical History?: Yes Hx Hypertension: Yes Hx Congestive Heart Failure: No Hx Diabetes: Yes Hx Psychiatric Treatment: Yes (paranoid schizophrenia) Hx Asthma: No Additional medical history: Umbillical hernia, colon polyps. colaspe lung/ CIRRHOIS, pancreatitis, ETOH abuse - Surgical History Past Surgical History?: Yes Additional Surgical History: ankle right surgery, Hernia - Social History Smoking Status: Never Smoker Substance Use Type: Alcohol - Medications Home Medications: Home Medications Medication Instructions Recorded Confirmed Last Taken Type Famotidine [Pepcid] 20 mg PO BID #30 tablet 06/20/18 08/17/18 Unknown Rx chlordiazePOXIDE [Librium] 25 mg PO Q6H PRN #30 capsule 06/20/18 08/17/18 Unknown Rx Pantoprazole [Protonix] 40 mg PO BID #60 tablet 06/22/18 08/17/18 Unknown Rx Sucralfate 1 gm PO QID 30 Days tablet 06/22/18 08/17/18 Unknown Rx oxyCODONE /ACETAMINOPHEN [Percocet 1 tab PO Q4HR #12 tab 06/22/18 08/17/18 Unknown Rx 5/325] FLUoxetine [PROzac] 20 mg PO QDAY #30 capsule 08/13/18 08/17/18 Unknown Rx OLANzapine [ZyPREXA] 5 mg PO QHS #30 tablet 08/13/18 08/17/18 Unknown Rx FLUoxetine [PROzac] 20 mg PO DAILY #20 capsule 08/20/18 Unknown Rx OLANzapine [ZyPREXA] 10 mg PO HS #20 tablet 08/20/18 Unknown Rx ED Physical Exam - General Limitations: No Limitations General appearance: alert, in no apparent distress, other (tremors) - Head Head exam: Present: atraumatic, normocephalic - Eye Eye exam: Present: normal appearance, PERRL, EOMI - ENT ENT exam: Present: mucous membranes moist - Neck Neck exam: Present: normal inspection - Respiratory Respiratory exam: Present: normal lung sounds bilaterally. Absent: respiratory distress - Cardiovascular Cardiovascular Exam: Present: regular rate, normal rhythm. Absent: systolic murmur, diastolic murmur, rubs, gallop - GI/Abdominal GI/Abdominal exam: Present: soft, normal bowel sounds. Absent: distended, tenderness - Rectal Rectal exam: Present: deferred - Extremities Exam Extremities exam: Present: normal inspection - Back Exam Back exam: Present: normal inspection - Neurological Exam Neurological exam: Present: alert, oriented X3, CN II-XII intact. Absent: motor sensory deficit - Psychiatric Psychiatric exam: Present: normal affect, normal mood - Skin Skin exam: Present: warm, dry, intact, normal color. Absent: rash ED Course Vital Signs 11/02/18 11/02/18 04:15 10:12 Temperature 98.1 F 98.1 F Pulse Rate 115 H 103 H Respiratory 18 18 Rate Blood Pressure 122/82 O2 Sat by Pulse 99 100 Oximetry ED Medical Decision Making - Lab Data Result diagrams: 11/02/18 04:26 11/02/18 04:26 Lab Results 11/02/18 11/02/18 11/02/18 Range/Units 04:26 04:26 04:26 WBC 6.4 (4.5-11.0) K/mm3 RBC 5.08 H (3.65-5.03) M/mm3 Hgb 13.4 (11.8-15.2) gm/dl Hct 41.7 (35.5-45.6) % MCV 82 L (84-94) fl MCH 26 L (28-32) pg MCHC 32 (32-34) % RDW 16.3 H (13.2-15.2) % Plt Count 280 (140-440) K/mm3 Lymph % (Auto) 31.6 (13.4-35.0) % [place] % (Auto) 12.4 H (0.0-7.3) % Eos % (Auto) 0.3 (0.0-4.3) % Baso % (Auto) 0.8 (0.0-1.8) % Lymph # 2.0 (1.2-5.4) K/mm3 [place] # 0.8 (0.0-0.8) K/mm3 Eos # 0.0 (0.0-0.4) K/mm3 Baso # 0.1 (0.0-0.1) K/mm3 Seg Neutrophils % 54.9 (40.0-70.0) % Seg Neutrophils # 3.5 (1.8-7.7) K/mm3 Sodium (137-145) mmol/L Potassium (3.6-5.0) mmol/L Chloride (98-107) mmol/L Carbon Dioxide (22-30) mmol/L Anion Gap mmol/L BUN (9-20) mg/dL Creatinine (0.8-1.5) mg/dL Estimated GFR ml/min BUN/Creatinine Ratio % Glucose (75-100) mg/dL Calcium (8.4-10.2) mg/dL Troponin T (0.00-0.029) ng/mL Urine Color (Yellow) Urine Turbidity (Clear) Urine pH (5.0-7.0) Ur Specific [place] (1.003-1.030) Urine Protein (Negative) mg/dL Urine Glucose (UA) (Negative) mg/dL Urine Ketones (Negative) mg/dL Urine Blood (Negative) Urine Nitrite (Negative) Urine Bilirubin (Negative) Urine Urobilinogen (<2.0) mg/dL Ur Leukocyte Esterase (Negative) Urine WBC (Auto) (0.0-6.0) /HPF Urine RBC (Auto) (0.0-6.0) /HPF U Epithel Cells (Auto) (0-13.0) /HPF Urine Mucus /HPF Salicylates < 0.3 L (2.8-20.0) mg/dL Urine Opiates Screen Urine Methadone Screen Acetaminophen < 5.0 L (10.0-30.0) ug/mL Ur Barbiturates Screen Ur Phencyclidine Scrn Ur Amphetamines Screen U Benzodiazepines Scrn Urine Cocaine Screen U Marijuana (THC) Screen Drugs of Abuse Note Plasma/Serum Alcohol (0-0.07) % 11/02/18 11/02/18 11/02/18 Range/Units 04:26 04:26 07:04 WBC (4.5-11.0) K/mm3 RBC (3.65-5.03) M/mm3 Hgb (11.8-15.2) gm/dl Hct (35.5-45.6) % MCV (84-94) fl MCH (28-32) pg MCHC (32-34) % RDW (13.2-15.2) % Plt Count (140-440) K/mm3 Lymph % (Auto) (13.4-35.0) % [place] % (Auto) (0.0-7.3) % Eos % (Auto) (0.0-4.3) % Baso % (Auto) (0.0-1.8) % Lymph # (1.2-5.4) K/mm3 [place] # (0.0-0.8) K/mm3 Eos # (0.0-0.4) K/mm3 Baso # (0.0-0.1) K/mm3 Seg Neutrophils % (40.0-70.0) % Seg Neutrophils # (1.8-7.7) K/mm3 Sodium 144 (137-145) mmol/L Potassium 3.3 L (3.6-5.0) mmol/L Chloride 99.1 (98-107) mmol/L Carbon Dioxide 26 (22-30) mmol/L Anion Gap 22 mmol/L BUN 6 L (9-20) mg/dL Creatinine 0.9 (0.8-1.5) mg/dL Estimated GFR > 60 ml/min BUN/Creatinine Ratio 7 % Glucose 105 H (75-100) mg/dL Calcium 9.0 (8.4-10.2) mg/dL Troponin T < 0.010 < 0.010 (0.00-0.029) ng/mL Urine Color (Yellow) Urine Turbidity (Clear) Urine pH (5.0-7.0) Ur Specific [place] (1.003-1.030) Urine Protein (Negative) mg/dL Urine Glucose (UA) (Negative) mg/dL Urine Ketones (Negative) mg/dL Urine Blood (Negative) Urine Nitrite (Negative) Urine Bilirubin (Negative) Urine Urobilinogen (<2.0) mg/dL Ur Leukocyte Esterase (Negative) Urine WBC (Auto) (0.0-6.0) /HPF Urine RBC (Auto) (0.0-6.0) /HPF U Epithel Cells (Auto) (0-13.0) /HPF Urine Mucus /HPF Salicylates (2.8-20.0) mg/dL Urine Opiates Screen Urine Methadone Screen Acetaminophen (10.0-30.0) ug/mL Ur Barbiturates Screen Ur Phencyclidine Scrn Ur Amphetamines Screen U Benzodiazepines Scrn Urine Cocaine Screen U Marijuana (THC) Screen Drugs of Abuse Note Plasma/Serum Alcohol 0.22 H (0-0.07) % 11/02/18 11/02/18 Range/Units Unknown Unknown WBC (4.5-11.0) K/mm3 RBC (3.65-5.03) M/mm3 Hgb (11.8-15.2) gm/dl Hct (35.5-45.6) % MCV (84-94) fl MCH (28-32) pg MCHC (32-34) % RDW (13.2-15.2) % Plt Count (140-440) K/mm3 Lymph % (Auto) (13.4-35.0) % [place] % (Auto) (0.0-7.3) % Eos % (Auto) (0.0-4.3) % Baso % (Auto) (0.0-1.8) % Lymph # (1.2-5.4) K/mm3 [place] # (0.0-0.8) K/mm3 Eos # (0.0-0.4) K/mm3 Baso # (0.0-0.1) K/mm3 Seg Neutrophils % (40.0-70.0) % Seg Neutrophils # (1.8-7.7) K/mm3 Sodium (137-145) mmol/L Potassium (3.6-5.0) mmol/L Chloride (98-107) mmol/L Carbon Dioxide (22-30) mmol/L Anion Gap mmol/L BUN (9-20) mg/dL Creatinine (0.8-1.5) mg/dL Estimated GFR ml/min BUN/Creatinine Ratio % Glucose (75-100) mg/dL Calcium (8.4-10.2) mg/dL Troponin T (0.00-0.029) ng/mL Urine Color Yellow (Yellow) Urine Turbidity Clear (Clear) Urine pH 6.0 (5.0-7.0) Ur Specific [place] 1.031 H (1.003-1.030) Urine Protein 30 mg/dl (Negative) mg/dL Urine Glucose (UA) 50 (Negative) mg/dL Urine Ketones Tr (Negative) mg/dL Urine Blood Neg (Negative) Urine Nitrite Neg (Negative) Urine Bilirubin Neg (Negative) Urine Urobilinogen 2.0 (<2.0) mg/dL Ur Leukocyte Esterase Neg (Negative) Urine WBC (Auto) 4.0 (0.0-6.0) /HPF Urine RBC (Auto) 2.0 (0.0-6.0) /HPF U Epithel Cells (Auto) < 1.0 (0-13.0) /HPF Urine Mucus Few /HPF Salicylates (2.8-20.0) mg/dL Urine Opiates Screen Presumptive negative Urine Methadone Screen Presumptive negative Acetaminophen (10.0-30.0) ug/mL Ur Barbiturates Screen Presumptive negative Ur Phencyclidine Scrn Presumptive negative Ur Amphetamines Screen Presumptive negative U Benzodiazepines Scrn Presumptive negative Urine Cocaine Screen Presumptive negative U Marijuana (THC) Screen Presumptive negative Drugs of Abuse Note Disclamer Plasma/Serum Alcohol (0-0.07) % - EKG Data -: EKG Interpreted by Ar EKG shows normal: sinus rhythm Rate: tachycardia - Medical Decision Making 1013 applied Critical care attestation.: If time is entered above; I have spent that time in minutes in the direct care of this critically ill patient, excluding procedure time. ED Disposition Clinical Impression: Auditory hallucinations, Alcohol intoxication Disposition: [id number]/TX-[id number] PSY HOSP/PSY UNIT Is pt being admited?: No Does the pt Need Aspirin: No Condition: Stable Referrals: NED MATHIS MD [Primary Care Provider] - 3-5 Days
[2018-11-02] MEDS: ATIVAN PO PRN ×2 (11:45→19:19)
[2018-11-02 11:54] LABS: Bilirubin,Urine NEG (Negative); Blood,Urine NEG (Negative); Color,Urine Yellow (Yellow); Mucus,Urine FEW /HPF
[2018-11-02 12:13] LABS: Amphetamine Screen,Urine PRESUMPTIVE NEGATIVE; Benzodiazepines Screen,Urine PRESUMPTIVE NEGATIVE; Cannabinoid Screen,Urine PRESUMPTIVE NEGATIVE; Cocaine Screen,Urine PRESUMPTIVE NEGATIVE; Methadone Screen,Urine PRESUMPTIVE NEGATIVE; Opiate Screen,Urine PRESUMPTIVE NEGATIVE
[2018-11-02 21:31] VITALS: BP 138/100
== END 2018-11-02 21:27 ==
LOC: ED 04:11 → EEVIPCON 04:11 → ED 21:27
DX: F10.120 Alcohol abuse with intoxication, uncomplicated (principal); F20.0 Paranoid schizophrenia; I10 Essential (primary) hypertension; E11.9 Type 2 diabetes mellitus without complications; Z88.0 Allergy status to penicillin
CPT/HCPCS: 36415; 71045; 80048; 80307; 81001; 84484; 85025; 93005; 93010; 99285; G0480; 80320

== ENCOUNTER 2018-12-14 00:11 | Emergency (ER) | payer MEDICAID ==
[2018-12-14] MEDS ORDERED: ZOFRAN IV ONE (00:26)
[2018-12-14] MEDS ORDERED: NACL 0.9% 1000 ML 1,000 ML IV ONE (00:26)
[2018-12-14] MEDS ORDERED: ATIVAN IV STA (00:26)
[2018-12-14] MEDS ORDERED: PEPCID IV ONE (00:26)
[2018-12-14] MEDS ORDERED: ATIVAN IM PRN (00:28)
[2018-12-14] MEDS ORDERED: HALDOL IM PRN (00:28)
[2018-12-14] MEDS ORDERED: HALDOL IM STA (00:28)
[2018-12-14] MEDS ORDERED: ATIVAN IV PRN ×3 (00:28)
--- NOTE | 2018-12-14 00:49 | Emergency Department Report ---
<LAKSHMI LOOMIS - Last Filed: 12/14/18 05:54> ED General Adult HPI - General Chief complaint: Abdominal Pain Stated complaint: MH EVAL Time Seen by Provider: 12/14/18 00:32 - Related Data Previous Rx's Medication Instructions Recorded Last Taken Type Famotidine [Pepcid] 20 mg PO BID #30 tablet 06/20/18 Unknown Rx chlordiazePOXIDE [Librium] 25 mg PO Q6H PRN #30 capsule 06/20/18 Unknown Rx Pantoprazole [Protonix] 40 mg PO BID #60 tablet 06/22/18 Unknown Rx Sucralfate 1 gm PO QID 30 Days tablet 06/22/18 Unknown Rx oxyCODONE /ACETAMINOPHEN [Percocet 1 tab PO Q4HR #12 tab 06/22/18 Unknown Rx 5/325] FLUoxetine [PROzac] 20 mg PO QDAY #30 capsule 08/13/18 Unknown Rx OLANzapine [ZyPREXA] 5 mg PO QHS #30 tablet 08/13/18 Unknown Rx FLUoxetine [PROzac] 20 mg PO DAILY #20 capsule 08/20/18 Unknown Rx OLANzapine [ZyPREXA] 10 mg PO HS #20 tablet 08/20/18 Unknown Rx Allergies Allergy/AdvReac Type Severity Reaction Status Date / Time Penicillins Allergy Hives Verified 12/14/18 00:26 ED Past Medical Hx - Medications Home Medications: Home Medications Medication Instructions Recorded Confirmed Last Taken Type Famotidine [Pepcid] 20 mg PO BID #30 tablet 06/20/18 08/17/18 Unknown Rx chlordiazePOXIDE [Librium] 25 mg PO Q6H PRN #30 capsule 06/20/18 08/17/18 Unknown Rx Pantoprazole [Protonix] 40 mg PO BID #60 tablet 06/22/18 08/17/18 Unknown Rx Sucralfate 1 gm PO QID 30 Days tablet 06/22/18 08/17/18 Unknown Rx oxyCODONE /ACETAMINOPHEN [Percocet 1 tab PO Q4HR #12 tab 06/22/18 08/17/18 Unknown Rx 5/325] FLUoxetine [PROzac] 20 mg PO QDAY #30 capsule 08/13/18 08/17/18 Unknown Rx OLANzapine [ZyPREXA] 5 mg PO QHS #30 tablet 08/13/18 08/17/18 Unknown Rx FLUoxetine [PROzac] 20 mg PO DAILY #20 capsule 08/20/18 Unknown Rx OLANzapine [ZyPREXA] 10 mg PO HS #20 tablet 08/20/18 Unknown Rx ED Course - Reevaluation(s) Reevaluation #3: 12/14/18 05:54 images reviewed and no significant findings - EJ/Peripheral Line Neck L Time Out Performed: Yes Indications: nurses unable to establis Skin Cleansed in Sterile Fashion: Yes Size: 20 Dressing Placed: Tegaderm Patient Tolerated Procedure: well, no complications Additional Comments: pt pulled out his EJ that was placed and therefore I replaced it so he may receive his ct angio chest and abd. He was given ativan 1 mg and toradol (pt requested pain med). He was more calm and we were able to send pt back to comp lete his ct ED Medical Decision Making - Lab Data Result diagrams: 12/14/18 00:34 12/14/18 00:34 ED Disposition Clinical Impression: Alcohol intoxication, History of nausea and vomiting Disposition: DC/TX-70 ANOTHER TYPE HLTHCARE Condition: Stable Referrals: PRIMARY CARE,MD [Primary Care Provider] - 3-5 Days <BETTY ESPINOZA - Last Filed: 12/15/18 20:37> ED General Adult HPI - General Source: patient, EMS (ems notes not available at time of chart dictation), RN notes reviewed, old records reviewed Mode of arrival: Stretcher Limitations: Other (the patient is intoxicated. The patient is a poor historian.) - History of Present Illness Initial comments: This is a 53-year-old gentleman. The patient has been evaluated by this provider in the past. His past history includes endoscopically proven esophagitis, gastritis, duodenitis, alcohol dependence, GERD/reflux, alcoholism and pancreatitis. The patient presents to the emergency room intoxicated. He reports that he has been drinking for the past couple of days. He complains of suprapubic abdominal pain that radiates up to the chest. He endorses multiple episodes of nausea and vomiting. He reports black "ink" stool. The patient is not accompanied by friends or family. No collateral information is available at this time. He reports that the abdominal pain increases with palpation. He denies DVT, pulmonary embolus risk factors. He is not homicidal. He is disorganized. He is not able to describe other exacerbating or relieving factors. He mentions no diaphoresis or shortness of breath -: unknown Location: chest, abdomen Severity scale (0 -10): 10 Quality: other Consistency: other Improves with: other Worsens with: other ED Review of Systems ROS: Stated complaint: MH EVAL Other details as noted in HPI Comment: Unobtainable due to pts medical conditions Constitutional: malaise Cardiovascular: chest pain Gastrointestinal: abdominal pain, nausea, vomiting, other Musculoskeletal: arthralgia Skin: denies: lesions Neurological: weakness, confusion Psychiatric: denies: homicidal thoughts, suicidal thoughts ED Past Medical Hx - Past Medical History Hx Hypertension: Yes Hx Congestive Heart Failure: No Hx Diabetes: Yes Hx Psychiatric Treatment: Yes Hx Asthma: No Additional medical history: Umbillical hernia, colon polyps. colaspe lung/ CIRRHOIS, pancreatitis, ETOH abuse - Surgical History Additional Surgical History: ankle right surgery, Hernia - Social History Smoking Status: Current Every Day Smoker Substance Use Type: Alcohol ED Physical Exam - General Limitations: No Limitations, Other (the patient is intoxicated. The patient is a poor historian.) General appearance: alert, appears intoxicated, anxious, in distress - Head Head exam: Present: atraumatic, normocephalic - Eye Eye exam: Present: normal appearance, EOMI - ENT ENT exam: Present: normal exam, normal orophraynx, mucous membranes moist, normal external ear exam - Neck Neck exam: Present: normal inspection, full ROM. Absent: tenderness, meningismus - Respiratory Respiratory exam: Present: normal lung sounds bilaterally, decreased breath sounds. Absent: respiratory distress - Cardiovascular Cardiovascular Exam: Present: normal rhythm, tachycardia, normal heart sounds. Absent: systolic murmur, diastolic murmur, rubs, gallop - GI/Abdominal GI/Abdominal exam: Present: soft, tenderness. Absent: distended, guarding, rebound, rigid, pulsatile mass - Rectal Rectal exam: Present: normal inspection, normal rectal tone (chaperoned by nurse Susan Beckman), heme (-) stool. Absent: black stool, bloody stool, fecal impaction, hemorrhoids - Extremities Exam Extremities exam: Present: normal inspection, full ROM, other (2+ pulses noted in the bilateral upper, lower extremities. Compartments soft. No long bony t enderness. The pelvis is stable.). Absent: joint swelling, calf tenderness - Back Exam Back exam: Present: normal inspection, full ROM. Absent: tenderness, CVA tenderness (R), CVA tenderness (L), paraspinal tenderness, vertebral tenderness - Neurological Exam Neurological exam: Present: altered, other (Extraocular movements intact. Tongue midline. No facial droop. Facial sensation intact to light touch in the V1, V2, V3 distribution bilaterally. 5 and 5 strength in 4 extremities.. Sensation is intact to light touch in 4 extremities.) - Psychiatric Psychiatric exam: Present: anxious - Skin Skin exam: Present: warm, dry, intact, normal color. Absent: rash ED Course Vital Signs 12/14/18 12/14/18 12/14/18 00:21 00:31 01:00 Temperature 98.9 F Pulse Rate 96 H 120 H 123 H Respiratory 24 13 14 Rate Blood Pressure 134/86 146/104 Blood Pressure 134/86 [Left] O2 Sat by Pulse 96 94 92 Oximetry 12/14/18 12/14/18 12/14/18 01:30 01:39 02:01 Temperature Pulse Rate 138 H 107 H Respiratory 18 18 17 Rate Blood Pressure 146/104 Blood Pressure [Left] O2 Sat by Pulse 95 92 Oximetry 12/14/18 12/14/18 12/14/18 02:32 03:03 03:40 Temperature Pulse Rate Respiratory Rate Blood Pressure 146/104 146/104 146/104 Blood Pressure [Left] O2 Sat by Pulse Oximetry 12/14/18 12/14/18 12/14/18 04:21 05:15 05:20 Temperature Pulse Rate 91 H Respiratory 20 16 Rate Blood Pressure 146/104 Blood Pressure 111/61 [Left] O2 Sat by Pulse 97 97 Oximetry 12/14/18 12/14/18 12/14/18 05:31 06:00 06:31 Temperature Pulse Rate Respiratory Rate Blood Pressure 101/61 101/53 101/53 Blood Pressure [Left] O2 Sat by Pulse 92 97 96 Oximetry 12/14/18 12/14/18 12/14/18 07:00 07:31 08:01 Temperature Pulse Rate Respiratory Rate Blood Pressure 76/29 98/55 98/55 Blood Pressure [Left] O2 Sat by Pulse 98 94 100 Oximetry 12/14/18 12/14/18 12/14/18 08:31 09:13 10:14 Temperature Pulse Rate Respiratory Rate Blood Pressure 98/55 98/55 98/55 Blood Pressure [Left] O2 Sat by Pulse 100 Oximetry 12/14/18 12/14/18 12/14/18 10:56 11:00 12:25 Temperature 98.0 F Pulse Rate 99 H Respiratory 18 Rate Blood Pressure 98/55 98/55 Blood Pressure 111/69 [Left] O2 Sat by Pulse 96 Oximetry 12/14/18 12/14/18 12/14/18 13:30 15:00 18:54 Temperature 98.8 F 98.9 F Pulse Rate 108 H 102 H Respiratory 16 18 Rate Blood Pressure 98/55 Blood Pressure 143/96 117/67 [Left] O2 Sat by Pulse 98 97 Oximetry 12/14/18 12/15/18 22:10 06:13 Temperature 98.2 F Pulse Rate 80 78 Respiratory 20 19 Rate Blood Pressure Blood Pressure 146/78 162/80 [Left] O2 Sat by Pulse 99 100 Oximetry - Reevaluation(s) Reevaluation #1: 12/14/18 00:47 Differential diagnosis, including but not limited to: Alcohol intoxication, pancreatitis, GERD, gastritis, Agata-Sabillon tear, enteritis, malnutrition, dehydration, intracranial injury, cervical spine injury, pulmonary embolus, aortic disease, acute coronary syndrome Assessment and plan: 53-year-old gentleman, who is clinically in obviously intoxicated and impaired, tachycardic, appears dehydrated, with a primary complaint of abdominal pain radiating to the chest. Suspect GI etiology. Endorses no pulmonary embolus or DVT risk factors. He is tachycardic but not hypoxic. There is no physical evidence of blunt trauma to the head or neck, however, did not note the patient fell prior to arrival. The patient's agitation will be treated with intramuscular haloperidol, and intravenous Ativan. The patient will be ordered for the alcohol withdrawal protocol. He is placed on a [address] scan of the brain, cervical spine pending. CT scan of the chest, abdomen, pelvis, and appropriate screening laboratory studies are pending. Patient does not meet 1013 criteria. He did report that he is somewhat interested in alcohol detox. Reevaluation #2: 12/14/18 01:30 care will be transferred to the overnight physician, Dr Sonido Loomis, to follow up on ct head, c spine, chest abdomen pelvis, repeat ekg , reapeat troponin and observe pending clinical sobriety vs admit if ct shows objective disease that merits admission ED Medical Decision Making - Lab Data Result diagrams: 12/14/18 00:34 12/14/18 00:34 Vital Signs 12/14/18 12/14/18 00:21 00:31 Temperature 98.9 F Pulse Rate 96 H 120 H Respiratory 24 13 Rate Blood Pressure 134/86 Blood Pressure 134/86 [Left] O2 Sat by Pulse 96 94 Oximetry Vital Signs 12/14/18 12/14/18 00:21 00:31 Temperature 98.9 F Pulse Rate 96 H 120 H Respiratory 24 13 Rate Blood Pressure 134/86 Blood Pressure 134/86 [Left] O2 Sat by Pulse 96 94 Oximetry Labs 12/14/18 12/14/18 12/14/18 00:34 00:34 00:34 WBC 6.7 RBC 5.10 H Hgb 12.9 Hct 40.2 MCV 79 L MCH 25 L MCHC 32 RDW 17.8 H Plt Count 266 Lymph % (Auto) 26.8 [place] % (Auto) 8.5 H Eos % (Auto) 0.3 Baso % (Auto) 0.4 Lymph # 1.8 [place] # 0.6 Eos # 0.0 Baso # 0.0 Seg Neutrophils % 64.0 Seg Neutrophils # 4.3 PT 12.7 INR 0.90 APTT 24.7 D-Dimer 276.39 H Sodium 133 L Potassium 3.8 Chloride 90.8 L Carbon Dioxide 26 Anion Gap 20 BUN 9 Creatinine 1.0 Estimated GFR > 60 BUN/Creatinine Ratio 9 Glucose 102 H Calcium 10.0 Magnesium 1.90 Total Bilirubin 0.40 AST 31 ALT 23 Alkaline Phosphatase 122 Total Creatine Kinase 268 H Troponin T < 0.010 Total Protein 7.2 Albumin 4.0 Albumin/Globulin Ratio 1.3 Salicylates Acetaminophen 12/14/18 12/14/18 00:34 00:34 WBC RBC Hgb Hct MCV MCH MCHC RDW Plt Count Lymph % (Auto) [place] % (Auto) Eos % (Auto) Baso % (Auto) Lymph # [place] # Eos # Baso # Seg Neutrophils % Seg Neutrophils # PT INR APTT D-Dimer Sodium Potassium Chloride Carbon Dioxide Anion Gap BUN Creatinine Estimated GFR BUN/Creatinine Ratio Glucose Calcium Magnesium Total Bilirubin AST ALT Alkaline Phosphatase Total Creatine Kinase Troponin T Total Protein Albumin Albumin/Globulin Ratio Salicylates < 0.3 L Acetaminophen < 5.0 L - EKG Data -: EKG Interpreted by Me EKG shows normal: sinus rhythm Rate: tachycardia - EKG Data 12/15/18 20:36 EKG shows a sinus tachycardia, normal axis, QTC prolonged, left ventricular hypertrophy, borderline atrial enlargement, abnormal EKG, not consistent with ST elevation myocardial infarction. - Radiology Data Radiology results: report reviewed, image reviewed interpreted by me: X-ray of the chest is negative for acute disease. Print Report Referring Physician: BETTY ESPINOZA Patient Name: FOREIGN MARS Date of : 1965 Sex: Male Report Date: 2018-12-14 Report Status: Finalized Findings [facility] [address] [place] [address] Cat Scan Report Signed Patient: FOREIGN MARS MR#: [id number] : 1965 Acct:[id number] Age/Sex: 53 / M ADM Date: 12/14/18 Loc: ED Attending Dr: Ordering Physician: BETTY ESPINOZA MD Date of Service: 12/14/18 Procedure(s): CT abdomen pelvis w con Accession Number(s): [id number] cc: BETTY ESPINOZA MD PROCEDURE: CT ABDOMEN PELVIS W CON TECHNIQUE: Computerized axial tomography of the abdomen and pelvis was performed after the IV injection of iodinated nonionic contrast. CT DOSE LENGTH PRODUCT: mGycm HISTORY: etoh ams abd pain to chest pain COMPARISONS: 06/20/2018 . FINDINGS: Visualized lower thorax: There are no infiltrates or effusions. There is a moderate-sized hiatal hernia.. Liver: Normal size and attenuation. Spleen: Normal size and attenuation. Gallbladder and biliary system: Normal. Pancreas: Normal. Adrenals: Normal. Kidneys: Normal. GI tract: The bowel loops are normal in caliber and course. The appendix is not enlarged. . Lymph nodes and mesentery: Normal. Vasculature: Normal.. Bladder: Normal. Reproductive organs: Normal. Peritoneum: No free fluid. Musculoskeletal structures: There is stable multilevel disc degeneration in the lower lumbar spine.. Other: There is diastases of the rectus muscles with 2 stable Supraumbilical ventral hernias both of which contain omental fat. . IMPRESSION: No acute process in the abdomen and pelvis. Moderate-sized hiatal hernia. Stable small supraumbilical ventral hernias containing omental fat. This document is electronically signed by Awais Sanderson MD., December 14 2018 06:50:32 AM ET Transcribed By: RB Dictated By: AWAIS SANDERSON MD Electronically Authenticated By: AWAIS SANDERSON MD Signed Date/Time: 12/14/18 0553 Print Report Referring Physician: BETTY ESPINOZA Patient Name: FOREIGN MARS Date of : 1965 Sex: Male Report Date: 2018-12-14 Report Status: Finalized Findings [facility] [address] [place] [address] Cat Scan Report Signed Patient: FOREIGN MARS MR#: [id number] : 1965 Acct:[id number] Age/Sex: 53 / M ADM Date: 12/14/18 Loc: ED Attending Dr: Ordering Physician: BETTY ESPINOZA MD Date of Service: 12/14/18 Procedure(s): CT angio chest Accession Number(s): [id number] cc: BETTY ESPINOZA MD PROCEDURE: CT ANGIO CHEST TECHNIQUE: Computerized tomographic angiography of the chest was performed after the IV injection of iodinated nonionic contrast including image processing. The image data was postprocessed using 2-dimensional multiplanar reformatted (MPR) and 3-dimensional (MIP and/or volume rendered) techniques. Automated exposure control, adjustment of mA and/or kV according to patient size, or iterative reconstruction dose optimization techniques were utilized. CT DOSE LENGTH PRODUCT: mGycm HISTORY: etoh ams ? trauma cp n/v COMPARISONS: None . FINDINGS: Heart and pericardium: Normal. Thoracic aorta: There is no thoracic aortic aneurysm or dissection.. Pulmonary vasculature: There is no pulmonary embolism.. Lymph nodes: No enlarged thoracic lymph nodes. Lungs: Lungs are expanded and clear.. Pleural space: No effusion, thickening, or pneumothorax. Musculoskeletal structures: No significant abnormality. There is diffuse thickening of the esophagus which could be due to esophagitis. IMPRESSION: There is no thoracic aortic aneurysm or dissection.. There is no pulmonary embolism.. The lungs are expanded and clear. There is diffuse thickening of the esophagus which could be due to esophagitis. . This document is electronically signed by Benigno Zavala MD., December 14 2018 06:07:40 AM ET Transcribed By: CO Dictated By: BENIGNO ZAVALA MD Electronically Authenticated By: BENIGNO ZAVALA MD Signed Date/Time: 12/14/18 0509 nt Report Referring Physician: BETTY ESPINOZA Patient Name: FOREIGN MARS Date of : 1965 Sex: Male Report Date: 2018-12-14 Report Status: Finalized Findings [address] [address] Cat Scan Report Signed Patient: FOREIGN MARS MR#: [id number] : 1965 Acct:[id number] Age/Sex: 53 / M ADM Date: 12/14/18 Loc: ED Attending Dr: Ordering Physician: BETTY ESPINOZA MD Date of Service: 12/14/18 Procedure(s): CT cervical spine wo con Accession Number(s): [id number] cc: BETTY ESPINOZA MD PROCEDURE: CT CERVICAL SPINE WO CON TECHNIQUE: Computerized tomography of the cervical spine was performed from the skull base to T1 without contrast material. CT DOSE LENGTH PRODUCT: mGycm HISTORY: etoh ams ? trauma COMPARISONS: 06/20/2018 . FINDINGS: There is moderate narrowing of the C4-C5 disc with endplate spurring. There is moderatethe narrowing of the C6-C7 disc. Alignment appears normal. The canal size is normal. The facet joints are well-maintained. The prevertebral soft tissues appear intact. The C1-C2 articulation does not show any acute changes. IMPRESSION: Degenerative arthritic changes as described. No acute injury. . This document is electronically signed by Awais Sanderson MD., December 14 2018 04:42:56 AM ET Transcribed By: RB Dictated By: AWAIS SANDERSON MD Electronically Authenticated By: AWAIS SANDERSON MD Signed Date/Time: 12/14/18 0345 Referring Physician: BETTY ESPINOZA Patient Name: FOREIGN MARS Date of : 1965 Sex: Male Report Date: 2018-12-14 Report Status: Finalized Findings [address] [address] Cat Scan Report Signed Patient: FOREIGN MARS MR#: [id number] : 1965 Acct:[id number] Age/Sex: 53 / M ADM Date: 12/14/18 Loc: ED Attending Dr: Ordering Physician: BETTY ESPINOZA MD Date of Service: 12/14/18 Procedure(s): CT head/brain wo con Accession Number(s): [id number] cc: BETTY ESPINOZA MD PROCEDURE: CT HEAD/BRAIN WO CON TECHNIQUE: Computerized tomography of the head was performed without contrast material. HISTORY: etoh ams ? trauma COMPARISONS: None . FINDINGS: Skull and scalp: Normal . Paranasal sinuses: Normal . Ventricles and subarachnoid spaces: Normal . Cerebrum: No evidence of hemorrhage, acute infarction or mass . Cerebellum and brainstem: No evidence of hemorrhage, acute infarction or mass . Vasculature: Normal . Other: None . ASPECTS: 10 IMPRESSION: There is no evidence of an acute intracranial process . This document is electronically signed by Christine Cardoso DO., December 14 2018 04:06:30 AM ET Transcribed By: [facility] Dictated By: CHRISTINE CARDOSO MD Electronically Authenticated By: CHRISTINE CARDOSO MD Signed Date/Time: 12/14/18 0307 Critical care attestation.: If time is entered above; I have spent that time in minutes in the direct care of this critically ill patient, excluding procedure time. ED Disposition Is pt being admited?: No Does the pt Need Aspirin: No
[2018-12-14 00:59] LABS: Basophils % (Auto) 0.4 % (0.0-1.8); Eosinophils % (Auto) 0.3 % (0.0-4.3); Hematocrit 40.2 % (35.5-45.6); Hemoglobin 12.9 gm/dl (11.8-15.2); Lymphocytes # (Auto) 1.8 K/mm3 (1.2-5.4); Lymphocytes % (Auto) 26.8 % (13.4-35.0); Mean Corpuscular HGB Conc 32 % (32-34); Mean Corpuscular Volume 79 fl (84-94); Monocytes # (Auto) 0.6 K/mm3 (0.0-0.8); Monocytes % (Auto) 8.5 % (0.0-7.3); Platelet Count 266 K/mm3 (140-440); Red Cell Distribution Width 17.8 % (13.2-15.2)
[2018-12-14] MEDS ORDERED: D5/0.45NS 1,000 ML IV SCH (01:00)
--- NOTE | 2018-12-14 01:11 | XRay Report ---
PROCEDURE: XR CHEST 1V AP TECHNIQUE: Chest radiograph single view. HISTORY: cp COMPARISONS: November 02, 2018 . FINDINGS: Heart: Normal. Mediastinum/Vessels: Normal. Lungs/Pleural space: Normal. Bony thorax: No acute osseous abnormality. Life support devices: None. IMPRESSION: No acute cardiopulmonary abnormality. This document is electronically signed by Benigno Gomez MD., December 14 2018 02:09:33 AM ET
[2018-12-14 01:14] LABS: Alanine Aminotransferase 23 units/L (7-56); BUN/Creatinine Ratio 9; Blood Urea Nitrogen 9 mg/dL (9-20); Hemolysis Index 4
[2018-12-14 01:17] LABS: INR 0.9 (0.87-1.13)
[2018-12-14 01:18] LABS: Partial Thromboplastin Time 24.7 Sec. (24.2-36.6)
[2018-12-14 01:55] LABS: Bilirubin,Urine NEG (Negative); Blood,Urine NEG (Negative); Color,Urine Straw (Yellow); Protein,Urine <15 mg/dL mg/dL (Negative); Urobilinogen,Urine < 2.0 mg/dL (<2.0); WBC,Urine < 1.0 /HPF (0.0-6.0)
--- NOTE | 2018-12-14 03:08 | Cat Scan Report ---
PROCEDURE: CT HEAD/BRAIN WO CON TECHNIQUE: Computerized tomography of the head was performed without contrast material. HISTORY: etoh ams ? trauma COMPARISONS: None . FINDINGS: Skull and scalp: Normal . Paranasal sinuses: Normal . Ventricles and subarachnoid spaces: Normal . Cerebrum: No evidence of hemorrhage, acute infarction or mass . Cerebellum and brainstem: No evidence of hemorrhage, acute infarction or mass . Vasculature: Normal . Other: None . ASPECTS: 10 IMPRESSION: There is no evidence of an acute intracranial process . This document is electronically signed by Christine Cardoso DO., December 14 2018 04:06:30 AM ET
--- NOTE | 2018-12-14 03:45 | Cat Scan Report ---
PROCEDURE: CT CERVICAL SPINE WO CON TECHNIQUE: Computerized tomography of the cervical spine was performed from the skull base to T1 wit hout contrast material. CT DOSE LENGTH PRODUCT: mGycm HISTORY: etoh ams ? trauma COMPARISONS: 06/20/2018 . FINDINGS: There is moderate narrowing of the C4-C5 disc with endplate spurring. There is moderatethe narrowing of the C6-C7 disc. Alignment appears normal. The canal size is normal. The facet joints are well-main tained. The prevertebral soft tissues appear intact. The C1-C2 articulation does not show any acute c hanges. IMPRESSION: Degenerative arthritic changes as described. No acute injury. . This document is electronically signed by Luis Sanderson MD., December 14 2018 04:42:56 AM ET
[2018-12-14] MEDS ORDERED: ATIVAN IV ONE (04:07)
[2018-12-14] MEDS ORDERED: TORADOL IV ONE (04:08)
--- NOTE | 2018-12-14 05:09 | Cat Scan Report ---
PROCEDURE: CT ANGIO CHEST TECHNIQUE: Computerized tomographic angiography of the chest was performed after the IV injection of iodinated nonionic contrast including image processing. The image data was postprocessed using 2-di mensional multiplanar reformatted (MPR) and 3-dimensional (MIP and/or volume rendered) techniques. Au tomated exposure control, adjustment of mA and/or kV according to patient size, or iterative reconstr uction dose optimization techniques were utilized. CT DOSE LENGTH PRODUCT: mGycm HISTORY: etoh ams ? trauma cp n/v COMPARISONS: None . FINDINGS: Heart and pericardium: Normal. Thoracic aorta: There is no thoracic aortic aneurysm or dissection.. Pulmonary vasculature: There is no pulmonary embolism.. Lymph nodes: No enlarged thoracic lymph nodes. Lungs: Lungs are expanded and clear.. Pleural space: No effusion, thickening, or pneumothorax. Musculoskeletal structures: No significant abnormality. There is diffuse thickening of the esophagus which could be due to esophagitis. IMPRESSION: There is no thoracic aortic aneurysm or dissection.. There is no pulmonary embolism.. The lungs are expanded and clear. There is diffuse thickening of the esophagus which could be due to esophagitis. . This document is electronically signed by Benigno Gomez MD., December 14 2018 06:07:40 AM ET
--- NOTE | 2018-12-14 05:53 | Cat Scan Report ---
PROCEDURE: CT ABDOMEN PELVIS W CON TECHNIQUE: Computerized axial tomography of the abdomen and pelvis was performed after the IV inject ion of iodinated nonionic contrast. CT DOSE LENGTH PRODUCT: mGycm HISTORY: etoh ams abd pain to chest pain COMPARISONS: 06/20/2018 . FINDINGS: Visualized lower thorax: There are no infiltrates or effusions. There is a moderate-sized hiatal angelo ia.. Liver: Normal size and attenuation. Spleen: Normal size and attenuation. Gallbladder and biliary system: Normal. Pancreas: Normal. Adrenals: Normal. Kidneys: Normal. GI tract: The bowel loops are normal in caliber and course. The appendix is not enlarged. . Lymph nodes and mesentery: Normal. Vasculature: Normal.. Bladder: Normal. Reproductive organs: Normal. Peritoneum: No free fluid. Musculoskeletal structures: There is stable multilevel disc degeneration in the lower lumbar spine.. Other: There is diastases of the rectus muscles with 2 stable Supraumbilical ventral hernias both of which contain omental fat. . IMPRESSION: No acute process in the abdomen and pelvis. Moderate-sized hiatal hernia. Stable small supraumbilical ventral hernias containing omental fat. This document is electronically signed by Luis Sanderson MD., December 14 2018 06:50:32 AM ET
[2018-12-14] MEDS ORDERED: ZOFRAN ONE (08:33)
[2018-12-14] MEDS ORDERED: PEPCID PO SCH (10:00)
--- NOTE | 2018-12-14 10:43 | Consultation ---
History of Present Illness - Reason for Consult Consult date: 12/14/18 Reason for consult: Mental Health Evaluation Requesting physician: BETTY ESPINOZA - Chief Complaint Chief complaint: "I want help" - History of Present Psychiatric Illness 53 y.o. AA male who presented to the ER for ETOH and possible SI's. This patient is known to me. Today the patient is calm and cooperative during the assessment. He stated that he want help for his "drinking problem." He stated that his behavior has caused him to be "more depressed." He is adamant that he must stop drinking (etoh). He rate his depression 6/10, with 10 being the worse. He would not confirm or deny SI's when asked. He denies HI's and AVH's. He denies a poor appetite and erratic sleep. He stated that he have not been complaint with his medications. Medications and Allergies Allergies Allergy/AdvReac Type Severity Reaction Status Date / Time Penicillins Allergy Hives Verified 12/14/18 00:26 Home Medications Medication Instructions Recorded Confirmed Last Taken Type Famotidine [Pepcid] 20 mg PO BID #30 tablet 06/20/18 08/17/18 Unknown Rx chlordiazePOXIDE [Librium] 25 mg PO Q6H PRN #30 capsule 06/20/18 08/17/18 Unknown Rx Pantoprazole [Protonix] 40 mg PO BID #60 tablet 06/22/18 08/17/18 Unknown Rx Sucralfate 1 gm PO QID 30 Days tablet 06/22/18 08/17/18 Unknown Rx oxyCODONE /ACETAMINOPHEN [Percocet 1 tab PO Q4HR #12 tab 06/22/18 08/17/18 Unknown Rx 5/325] FLUoxetine [PROzac] 20 mg PO QDAY #30 capsule 08/13/18 08/17/18 Unknown Rx OLANzapine [ZyPREXA] 5 mg PO QHS #30 tablet 08/13/18 08/17/18 Unknown Rx FLUoxetine [PROzac] 20 mg PO DAILY #20 capsule 08/20/18 Unknown Rx OLANzapine [ZyPREXA] 10 mg PO HS #20 tablet 08/20/18 Unknown Rx Active Meds: Active Medications Haloperidol Lactate (Haldol) 5 mg IM Q6HR PRN PRN Reason: Agitation Dextrose/Sodium Chloride (D5/0.45ns) 1,000 mls @ 0 mls/hr IV DIRECT JOAN Last Admin: 12/14/18 05:15 Dose: 999 mls/hr Documented by: Lorazepam (Ativan) 2 mg IM Q4HR PRN PRN Reason: Agitation Lorazepam (Ativan) 2 mg IV Q1HR PRN PRN Reason: CIWA-Ar 8-15 Last Admin: 12/14/18 04:33 Dose: 2 mg Documented by: Lorazepam (Ativan) 4 mg IV Q1HR PRN PRN Reason: CIWA-Ar 16-25 Lorazepam (Ativan) 4 mg IV Q15MIN PRN PRN Reason: CIWA-Ar >25 Pantoprazole Sodium (Protonix) 40 mg PO BID JOAN Sucralfate (Carafate) 1 gm PO QID [facility] Mental Status Exam - Vital signs Last Vital Signs Temp 98.9 F 12/14/18 00:21 Pulse 91 H 12/14/18 05:20 Resp 16 12/14/18 05:20 BP 111/61 12/14/18 05:20 Pulse Ox 97 12/14/18 05:20 - Exam Narrative exam: MSE: Appearance: calm, cooperative Behavior: regular eye contact Speech: regular rate with and tone Mood: "depressed" Affect: flat Thought Process: circumstantial Thought Content: denies HI's and AVH's Motor Activity: sitting up in bed Cognition: A/O x3 Insight: variable to fair Judgment: variable Results Result Diagrams: 12/14/18 00:34 12/14/18 00:34 Abnormal lab results 12/14/18 12/14/18 12/14/18 Range/Units 00:34 00:34 00:34 RBC 5.10 H (3.65-5.03) M/mm3 MCV 79 L (84-94) fl MCH 25 L (28-32) pg RDW 17.8 H (13.2-15.2) % [place] % (Auto) 8.5 H (0.0-7.3) % D-Dimer 276.39 H (0-234) ng/mlDDU Sodium 133 L (137-145) mmol/L Chloride 90.8 L (98-107) mmol/L Glucose 102 H (75-100) mg/dL Total Creatine Kinase 268 H (55-170) units/L Salicylates (2.8-20.0) mg/dL Acetaminophen (10.0-30.0) ug/mL Plasma/Serum Alcohol (0-0.07) % 12/14/18 12/14/18 12/14/18 Range/Units 00:34 00:34 00:34 RBC (3.65-5.03) M/mm3 MCV (84-94) fl MCH (28-32) pg RDW (13.2-15.2) % [place] % (Auto) (0.0-7.3) % D-Dimer (0-234) ng/mlDDU Sodium (137-145) mmol/L Chloride (98-107) mmol/L Glucose (75-100) mg/dL Total Creatine Kinase (55-170) units/L Salicylates < 0.3 L (2.8-20.0) mg/dL Acetaminophen < 5.0 L (10.0-30.0) ug/mL Plasma/Serum Alcohol 0.28 H (0-0.07) % All other labs normal. Assessment and Plan Assessment and plan: Impression: MDD. Alcohol Use DO. Today the patient was calm and cooperative during the assessment. DDx: Alcohol Induced Mood DO Recommendation/Plan: Continue 2012 and start Prozac 20 mg PO daily for depression. Discussed possible suicidality/medication induced millie with the patient reference Proza, he verbalized understanding. Dispo: The patient was referred to inpatient psy services. Will staff with Dr Carlos Cobos.
[2018-12-14] MEDS: PROTONIX PO SCH ×2 (11:00→22:05)
[2018-12-14] MEDS: CARAFATE PO SCH ×4 (11:00→22:05)
[2018-12-14 11:04] LABS: Amphetamine Screen,Urine PRESUMPTIVE NEGATIVE; Benzodiazepines Screen,Urine PRESUMPTIVE NEGATIVE; Cannabinoid Screen,Urine PRESUMPTIVE NEGATIVE; Cocaine Screen,Urine PRESUMPTIVE NEGATIVE; Methadone Screen,Urine PRESUMPTIVE NEGATIVE; Opiate Screen,Urine PRESUMPTIVE NEGATIVE
[2018-12-14] MEDS: PROzac PO SCH (14:25)
[2018-12-15 06:14] VITALS: BP 162/80
[2018-12-15] MEDS: CARAFATE PO SCH (11:58)
[2018-12-15] MEDS: PROTONIX PO SCH (11:58)
[2018-12-15] MEDS: PROzac PO SCH (11:58)
== END 2018-12-15 12:02 | disposition other institution (70) ==
LOC: ED 00:11 → EEVIPCON 00:11 → ED 12-15 12:02
DX: F32.9 Major depressive disorder, single episode, unspecified (principal); F10.129 Alcohol abuse with intoxication, unspecified; R11.2 Nausea with vomiting, unspecified; R10.9 Unspecified abdominal pain; I10 Essential (primary) hypertension; E11.9 Type 2 diabetes mellitus without complications; F17.200 Nicotine dependence, unspecified, uncomplicated; R53.81 Other malaise; R41.0 Disorientation, unspecified
CPT/HCPCS: 36415; 36556; 70450; 71045; 71275; 72125; 74177; 80053; 80307; 81001; 82550; 83690; 83735; 84484; 85025; 85027; 85379; 85610; 85730; 93005; 93010; 96361; 96372; 96374; 96375; 96376; 99285; G0480; J1630; J1885; J2060; J2405; J7030; Q9967; 80320

== ENCOUNTER 2019-01-01 08:39 | Emergency (ER) | payer MEDICAID ==
[2019-01-01 10:54] LABS: Basophils % (Auto) 0.9 % (0.0-1.8); Eosinophils % (Auto) 0.3 % (0.0-4.3); Hemoglobin 12.8 gm/dl (11.8-15.2); Lymphocytes # (Auto) 1.1 K/mm3 (1.2-5.4); Lymphocytes % (Auto) 20.7 % (13.4-35.0); Mean Corpuscular HGB Conc 33 % (32-34); Mean Corpuscular Volume 79 fl (84-94); Monocytes # (Auto) 0.5 K/mm3 (0.0-0.8); Platelet Count 270 K/mm3 (140-440); Red Blood Count 4.97 M/mm3 (3.65-5.03)
[2019-01-01 11:10] LABS: BUN/Creatinine Ratio 8; Blood Urea Nitrogen 6 mg/dL (9-20); Calcium 8.8 mg/dL (8.4-10.2); Hemolysis Index 4
[2019-01-01 11:12] LABS: Creatine Kinase MB 2.1 ng/mL (0.0-4.0)
[2019-01-01 11:14] LABS: Alanine Aminotransferase 18 units/L (7-56); Albumin 3.9 g/dL (3.9-5)
[2019-01-01 11:17] LABS: Bilirubin,Direct < 0.2 mg/dL (0-0.2)
[2019-01-01 11:34] LABS: Bilirubin,Urine NEG (Negative); Blood,Urine NEG (Negative); Color,Urine Yellow (Yellow); Protein,Urine <15 mg/dL mg/dL (Negative); Urobilinogen,Urine < 2.0 mg/dL (<2.0); WBC,Urine < 1.0 /HPF (0.0-6.0)
[2019-01-01 11:48] LABS: Amphetamine Screen,Urine PRESUMPTIVE NEGATIVE; Benzodiazepines Screen,Urine PRESUMPTIVE NEGATIVE; Cannabinoid Screen,Urine PRESUMPTIVE NEGATIVE; Cocaine Screen,Urine PRESUMPTIVE NEGATIVE; Methadone Screen,Urine PRESUMPTIVE NEGATIVE; Opiate Screen,Urine PRESUMPTIVE NEGATIVE
[2019-01-01] MEDS ORDERED: ZOFRAN ODT PO ONE (12:43)
--- NOTE | 2019-01-01 12:45 | Emergency Department Report ---
ED Psych HPI - General Chief Complaint: Psych Stated Complaint: CHEST PAIN Time Seen by Provider: 01/01/19 10:15 Source: patient, EMS Mode of arrival: Wheelchair Limitations: Other (etoh) - History of Present Illness Initial Comments: 53-year-old male with a past medical history of alcohol abuse, pancreatitis secondary to alcohol abuse, liver cirrhosis, hypertension, diabetes, and repeated visits for suicidal ideation presents to the hospital with alcohol intoxication, pain, and suicidal thoughts. Patient is to drink alcohol prior to arrival. He plays epigastric pain going to his back and pain in his chest for 24 hours. Pain is worse with palpation and movement. No complaints of nausea, vomiting, diarrhea, shortness of breath. Patient was here earlier this month with similar symptoms. Patient was discharged to [facility]. He states he has not had any of his psychiatric medications for the last 2 weeks because he lost the medication. Patient admits to continuing to drink alcohol daily. He is requesting medication for delirium tremors although he is obviously acutely intoxicated. Patient has been here several times and has received multiple CTs. December 14 Early this month he had a CT head, chest x-ray, ct neck, CTA chest and ct abdomen and pelvis. Findings significant for esophagitis, moderate hiatal hernia, stable small supraumbilical ventral abdominal hernias containing omental fat - Related Data Previous Rx's Medication Instructions Recorded Last Taken Type Famotidine [Pepcid] 20 mg PO BID #30 tablet 06/20/18 Unknown Rx chlordiazePOXIDE [Librium] 25 mg PO Q6H PRN #30 capsule 06/20/18 Unknown Rx Sucralfate 1 gm PO QID 30 Days tablet 06/22/18 Unknown Rx oxyCODONE /ACETAMINOPHEN [Percocet 1 tab PO Q4HR #12 tab 06/22/18 Unknown Rx 5/325] FLUoxetine [PROzac] 20 mg PO QDAY #30 capsule 08/13/18 Unknown Rx FLUoxetine [PROzac] 20 mg PO DAILY #20 capsule 08/20/18 Unknown Rx OLANzapine [ZyPREXA] 10 mg PO HS #20 tablet 08/20/18 Unknown Rx Allergies Allergy/AdvReac Type Severity Reaction Status Date / Time Penicillins Allergy Hives Verified 01/01/19 08:47 ED Review of Systems ROS: Stated complaint: CHEST PAIN Other details as noted in HPI Comment: All other systems reviewed and negative ED Past Medical Hx - Past Medical History Hx Hypertension: Yes Hx Congestive Heart Failure: No Hx Diabetes: Yes Hx Psychiatric Treatment: Yes Hx Asthma: No Additional medical history: Umbillical hernia, colon polyps. colaspe lung/ CIRRHOIS, pancreatitis, ETOH abuse, esophagitis, hiatal hernia - Surgical History Additional Surgical History: ankle right surgery, Hernia - Social History Smoking Status: Never Smoker Substance Use Type: Alcohol, Prescribed - Medications Home Medications: Home Medications Medication Instructions Recorded Confirmed Last Taken Type Famotidine [Pepcid] 20 mg PO BID #30 tablet 06/20/18 08/17/18 Unknown Rx chlordiazePOXIDE [Librium] 25 mg PO Q6H PRN #30 capsule 06/20/18 01/01/19 Unknown Rx Sucralfate 1 gm PO QID 30 Days tablet 06/22/18 08/17/18 Unknown Rx oxyCODONE /ACETAMINOPHEN [Percocet 1 tab PO Q4HR #12 tab 06/22/18 08/17/18 Unknown Rx 5/325] FLUoxetine [PROzac] 20 mg PO QDAY #30 capsule 08/13/18 08/17/18 Unknown Rx FLUoxetine [PROzac] 20 mg PO DAILY #20 capsule 08/20/18 01/01/19 Unknown Rx OLANzapine [ZyPREXA] 10 mg PO HS #20 tablet 08/20/18 01/01/19 Unknown Rx ED Physical Exam - General Limitations: No Limitations - Other Other exam information: General: No limitations, patient is alert in no acute distress Head exam: Atraumatic, normocephalic Eyes exam: Normal appearance, pupils equal reactive to light, extraocular movements intact ENT: Moist mucous membrane, normal oropharynx Neck exam: Normal inspection, full range of motion, no meningismus nontender Respiratory exam: Clear to auscultation bilateral, no wheezes, rales, crackles Cardiovascular: Normal rate and rhythm, sternal tenderness Abdomen: Soft, nondistended, epigastric tenderness, with normal bowel sounds, no rebound, or guarding Extremity: Full range of motion normal inspection no deformity Back: Normal Inspection, full range of motion, posterior thoracic tenderness Neurologic: Alert, oriented x3, cranial nerves intact, no motor or sensory d eficit Psychiatric: normal affect, normal mood Skin: Warm, dry, intact ED Course Vital Signs 01/01/19 01/01/19 01/01/19 08:52 13:00 19:54 Temperature 97.9 F 98.2 F 98.6 F Pulse Rate 98 H 99 H 110 H Respiratory 20 18 18 Rate Blood Pressure 106/75 Blood Pressure 114/77 135/87 [Left] O2 Sat by Pulse 94 100 97 Oximetry 01/02/19 01/02/19 01/02/19 01:00 08:06 10:47 Temperature 98.2 F 97.7 F Pulse Rate 87 82 Respiratory 20 18 18 Rate Blood Pressure Blood Pressure 121/73 106/74 [Left] O2 Sat by Pulse 97 96 Oximetry 01/02/19 13:48 Temperature 98.2 F Pulse Rate 87 Respiratory 16 Rate Blood Pressure Blood Pressure 116/68 [Left] O2 Sat by Pulse 96 Oximetry ED Medical Decision Making - Lab Data Result diagrams: 01/01/19 10:32 01/01/19 10:32 Lab Results 01/01/19 01/01/19 01/01/19 Range/Units 10:32 10:32 10:32 WBC (4.5-11.0) K/mm3 RBC (3.65-5.03) M/mm3 Hgb (11.8-15.2) gm/dl Hct (35.5-45.6) % MCV (84-94) fl MCH (28-32) pg MCHC (32-34) % RDW (13.2-15.2) % Plt Count (140-440) K/mm3 Lymph % (Auto) (13.4-35.0) % [place] % (Auto) (0.0-7.3) % Eos % (Auto) (0.0-4.3) % Baso % (Auto) (0.0-1.8) % Lymph # (1.2-5.4) K/mm3 Randall # (0.0-0.8) K/mm3 Eos # (0.0-0.4) K/mm3 Baso # (0.0-0.1) K/mm3 Seg Neutrophils % (40.0-70.0) % Seg Neutrophils # (1.8-7.7) K/mm3 Sodium 137 (137-145) mmol/L Potassium 3.5 L (3.6-5.0) mmol/L Chloride 94.5 L (98-107) mmol/L Carbon Dioxide 24 (22-30) mmol/L Anion Gap 22 mmol/L BUN 6 L (9-20) mg/dL Creatinine 0.8 (0.8-1.5) mg/dL Estimated GFR > 60 ml/min BUN/Creatinine Ratio 8 % Glucose 112 H (75-100) mg/dL Calcium 8.8 (8.4-10.2) mg/dL Magnesium (1.7-2.3) mg/dL Total Bilirubin (0.1-1.2) mg/dL Direct Bilirubin (0-0.2) mg/dL Indirect Bilirubin mg/dL AST (5-40) units/L ALT (7-56) units/L Alkaline Phosphatase (35-129) units/L Total Creatine Kinase (55-170) units/L CK-MB (CK-2) (0.0-4.0) ng/mL CK-MB (CK-2) Rel Index (0-4) Troponin T (0.00-0.029) ng/mL Total Protein (6.3-8.2) g/dL Albumin (3.9-5) g/dL Albumin/Globulin Ratio % Lipase (13-60) units/L Urine Color (Yellow) Urine Turbidity (Clear) Urine pH (5.0-7.0) Ur Specific [place] (1.003-1.030) Urine Protein (Negative) mg/dL Urine Glucose (UA) (Negative) mg/dL Urine Ketones (Negative) mg/dL Urine Blood (Negative) Urine Nitrite (Negative) Urine Bilirubin (Negative) Urine Urobilinogen (<2.0) mg/dL Ur Leukocyte Esterase (Negative) Urine WBC (Auto) (0.0-6.0) /HPF Urine RBC (Auto) (0.0-6.0) /HPF Salicylates < 0.3 L (2.8-20.0) mg/dL Urine Opiates Screen Urine Methadone Screen Acetaminophen < 5.0 L (10.0-30.0) ug/mL Ur Barbiturates Screen Ur Phencyclidine Scrn Ur Amphetamines Screen U Benzodiazepines Scrn Urine Cocaine Screen U Marijuana (THC) Screen Drugs of Abuse Note Plasma/Serum Alcohol (0-0.07) % 01/01/19 01/01/19 01/01/19 Range/Units 10:32 10:32 10:32 WBC 5.2 (4.5-11.0) K/mm3 RBC 4.97 (3.65-5.03) M/mm3 Hgb 12.8 (11.8-15.2) gm/dl Hct 39.0 (35.5-45.6) % MCV 79 L (84-94) fl MCH 26 L (28-32) pg MCHC 33 (32-34) % RDW 19.0 H (13.2-15.2) % Plt Count 270 (140-440) K/mm3 Lymph % (Auto) 20.7 (13.4-35.0) % [place] % (Auto) 9.0 H (0.0-7.3) % Eos % (Auto) 0.3 (0.0-4.3) % Baso % (Auto) 0.9 (0.0-1.8) % Lymph # 1.1 L (1.2-5.4) K/mm3 Randall # 0.5 (0.0-0.8) K/mm3 Eos # 0.0 (0.0-0.4) K/mm3 Baso # 0.0 (0.0-0.1) K/mm3 Seg Neutrophils % 69.1 (40.0-70.0) % Seg Neutrophils # 3.6 (1.8-7.7) K/mm3 Sodium (137-145) mmol/L Potassium (3.6-5.0) mmol/L Chloride (98-107) mmol/L Carbon Dioxide (22-30) mmol/L Anion Gap mmol/L BUN (9-20) mg/dL Creatinine (0.8-1.5) mg/dL Estimated GFR ml/min BUN/Creatinine Ratio % Glucose (75-100) mg/dL Calcium (8.4-10.2) mg/dL Magnesium 2.20 (1.7-2.3) mg/dL Total Bilirubin 0.30 (0.1-1.2) mg/dL Direct Bilirubin < 0.2 (0-0.2) mg/dL Indirect Bilirubin 0.1 mg/dL AST 26 (5-40) units/L ALT 18 (7-56) units/L Alkaline Phosphatase 106 (35-129) units/L Total Creatine Kinase 243 H (55-170) units/L CK-MB (CK-2) 2.1 (0.0-4.0) ng/mL CK-MB (CK-2) Rel Index 0.8 (0-4) Troponin T < 0.010 (0.00-0.029) ng/mL Total Protein 7.7 (6.3-8.2) g/dL Albumin 3.9 (3.9-5) g/dL Albumin/Globulin Ratio 1.0 % Lipase 15 (13-60) units/L Urine Color (Yellow) Urine Turbidity (Clear) Urine pH (5.0-7.0) Ur Specific [place] (1.003-1.030) Urine Protein (Negative) mg/dL Urine Glucose (UA) (Negative) mg/dL Urine Ketones (Negative) mg/dL Urine Blood (Negative) Urine Nitrite (Negative) Urine Bilirubin (Negative) Urine Urobilinogen (<2.0) mg/dL Ur Leukocyte Esterase (Negative) Urine WBC (Auto) (0.0-6.0) /HPF Urine RBC (Auto) (0.0-6.0) /HPF Salicylates (2.8-20.0) mg/dL Urine Opiates Screen Urine Methadone Screen Acetaminophen (10.0-30.0) ug/mL Ur Barbiturates Screen Ur Phencyclidine Scrn Ur Amphetamines Screen U Benzodiazepines Scrn Urine Cocaine Screen U Marijuana (THC) Screen Drugs of Abuse Note Plasma/Serum Alcohol 0.19 H (0-0.07) % 01/01/19 01/01/19 Range/Units 11:03 11:03 WBC (4.5-11.0) K/mm3 RBC (3.65-5.03) M/mm3 Hgb (11.8-15.2) gm/dl Hct (35.5-45.6) % MCV (84-94) fl MCH (28-32) pg MCHC (32-34) % RDW (13.2-15.2) % Plt Count (140-440) K/mm3 Lymph % (Auto) (13.4-35.0) % [place] % (Auto) (0.0-7.3) % Eos % (Auto) (0.0-4.3) % Baso % (Auto) (0.0-1.8) % Lymph # (1.2-5.4) K/mm3 [place] # (0.0-0.8) K/mm3 Eos # (0.0-0.4) K/mm3 Baso # (0.0-0.1) K/mm3 Seg Neutrophils % (40.0-70.0) % Seg Neutrophils # (1.8-7.7) K/mm3 Sodium (137-145) mmol/L Potassium (3.6-5.0) mmol/L Chloride (98-107) mmol/L Carbon Dioxide (22-30) mmol/L Anion Gap mmol/L BUN (9-20) mg/dL Creatinine (0.8-1.5) mg/dL Estimated GFR ml/min BUN/Creatinine Ratio % Glucose (75-100) mg/dL Calcium (8.4-10.2) mg/dL Magnesium (1.7-2.3) mg/dL Total Bilirubin (0.1-1.2) mg/dL Direct Bilirubin (0-0.2) mg/dL Indirect Bilirubin mg/dL AST (5-40) units/L ALT (7-56) units/L Alkaline Phosphatase (35-129) units/L Total Creatine Kinase (55-170) units/L CK-MB (CK-2) (0.0-4.0) ng/mL CK-MB (CK-2) Rel Index (0-4) Troponin T (0.00-0.029) ng/mL Total Protein (6.3-8.2) g/dL Albumin (3.9-5) g/dL Albumin/Globulin Ratio % Lipase (13-60) units/L Urine Color Yellow (Yellow) Urine Turbidity Clear (Clear) Urine pH 6.0 (5.0-7.0) Ur Specific [place] 1.009 (1.003-1.030) Urine Protein <15 mg/dl (Negative) mg/dL Urine Glucose (UA) Neg (Negative) mg/dL Urine Ketones Neg (Negative) mg/dL Urine Blood Neg (Negative) Urine Nitrite Neg (Negative) Urine Bilirubin Neg (Negative) Urine Urobilinogen < 2.0 (<2.0) mg/dL Ur Leukocyte Esterase Neg (Negative) Urine WBC (Auto) < 1.0 (0.0-6.0) /HPF Urine RBC (Auto) 2.0 (0.0-6.0) /HPF Salicylates (2.8-20.0) mg/dL Urine Opiates Screen Presumptive negative Urine Methadone Screen Presumptive negative Acetaminophen (10.0-30.0) ug/mL Ur Barbiturates Screen Presumptive negative Ur Phencyclidine Scrn Presumptive negative Ur Amphetamines Screen Presumptive negative U Benzodiazepines Scrn Presumptive negative Urine Cocaine Screen Presumptive negative U Marijuana (THC) Screen Presumptive negative Drugs of Abuse Note Disclamer Plasma/Serum Alcohol (0-0.07) % - Radiology Data Radiology results: report reviewed PROCEDURE: XR CHEST ROUTINE 2V TECHNIQUE: PA and lateral chest radiographs were obtained. HISTORY: cp COMPARISONS: CXR 12/14/2018. FINDINGS: Heart: Normal. Mediastinum/Vessels: Normal. Lungs/Pleural space: Linear atelectasis in the left base is noted. Bony thorax: No acute osseous abnormality. IMPRESSION: Left basilar atelectasis. - Medical Decision Making Patient presents acutely intoxicated but still requesting Ativan for delirium tremors. He complains of suicidal ideation with plan and admits to noncompliance with with recently prescribed medication. When mental health provider came to assess patient refused to wake up and speak to her. Patient has had multiple recent visits for the same including abdominal, and back, and chest complaints. Patient has a moderate size hiatal hernia and esophagitis which are likely the cause of his pain. This will continue to be exacerbated with alcohol intake. PO potassium provided. h2 alvina and prn maalox - Differential Diagnosis homelessness, substance abuse, alcohol abuse, psychosis, noncompliant Critical Care Time: No Critical care attestation.: If time is entered above; I have spent that time in minutes in the direct care of this critically ill patient, excluding procedure time. ED Disposition Clinical Impression: Alcohol intoxication, Suicidal ideations, Noncompliance with medication regimen, Hiatal hernia, Esophagitis, Medical clearance for psychiatric admission Disposition: DC/TX-65 PSY HOSP/PSY UNIT Is pt being admited?: No Condition: Stable Time of Disposition: 19:59 (awaiting acceptance)
[2019-01-01] MEDS ORDERED: PEPCID PO ONE ×2 (13:25→20:00)
[2019-01-01] MEDS: ALUM-MAG HYDROX-SIMETH 200-200-20MG/5ML PO PRN (13:47)
--- NOTE | 2019-01-01 15:17 | XRay Report ---
PROCEDURE: XR CHEST ROUTINE 2V TECHNIQUE: PA and lateral chest radiographs were obtained. HISTORY: cp COMPARISONS: CXR 12/14/2018. FINDINGS: Heart: Normal. Mediastinum/Vessels: Normal. Lungs/Pleural space: Linear atelectasis in the left base is noted. Bony thorax: No acute osseous abnormality. IMPRESSION: Left basilar atelectasis. This document is electronically signed by Susan Oconnor MD., January 01 2019 03:15:50 PM ET
[2019-01-01] MEDS ORDERED: ATIVAN IV PRN ×2 (17:38)
[2019-01-01] MEDS ORDERED: K-DUR PO ONE (18:17)
[2019-01-01] MEDS ORDERED: TYLENOL PO PRN (20:00)
[2019-01-02] MEDS: ALUM-MAG HYDROX-SIMETH 200-200-20MG/5ML PO PRN (17:28)
--- NOTE | 2019-01-02 18:51 | Consultation ---
History of Present Illness - Reason for Consult Consult date: 01/02/19 Reason for consult: psychiatric evaluation - Chief Complaint Chief complaint: "I need something for anxiety." - History of Present Psychiatric Illness 53 year old male seen for psychiatric evaluation in the ER. He presented for suicidal ideation. He was intoxicated at 0.19 level. He was recently seen at [facility] and transferred to [facility]. He has been to [facility] several times in the past 12 months for similar reasons. He was started on zyprexa 10mg hs and prozac 20mg daily. He wants to continue meds. He complains of anxiety. He is on CIWA and received ativan recently. He acknowlesges that he has suicidal ideation. He denies homicidal ideation. He reports AH to harm himself. Medications and Allergies Allergies Allergy/AdvReac Type Severity Reaction Status Date / Time Penicillins Allergy Hives Verified 01/01/19 08:47 Home Medications Medication Instructions Recorded Confirmed Last Taken Type Famotidine [Pepcid] 20 mg PO BID #30 tablet 06/20/18 01/02/19 Unknown Rx chlordiazePOXIDE [Librium] 25 mg PO Q6H PRN #30 capsule 06/20/18 01/01/19 Unknown Rx Sucralfate 1 gm PO QID 30 Days tablet 06/22/18 01/02/19 Unknown Rx oxyCODONE /ACETAMINOPHEN [Percocet 1 tab PO Q4HR #12 tab 06/22/18 01/02/19 Unknown Rx 5/325] FLUoxetine [PROzac] 20 mg PO QDAY #30 capsule 08/13/18 01/02/19 Unknown Rx FLUoxetine [PROzac] 20 mg PO DAILY #20 capsule 08/20/18 01/01/19 Unknown Rx OLANzapine [ZyPREXA] 10 mg PO HS #20 tablet 08/20/18 01/01/19 Unknown Rx Active Meds: Active Medications Acetaminophen (Tylenol) 650 mg PO Q6HR PRN PRN Reason: Pain , Severe (7-10) Al Hydrox/Mg Hydrox/Simethicone (Alum-Mag Hydrox-Simeth [phone]/5ml) 30 ml PO QID PRN PRN Reason: Indigestion Last Admin: 01/02/19 17:28 Dose: 30 ml Documented by: Lorazepam (Ativan) 2 mg IV Q1HR PRN PRN Reason: NAT-Ar 8-15 Last Admin: 01/01/19 20:18 Dose: 2 mg Documented by: Lorazepam (Ativan) 4 mg IV Q1HR PRN PRN Reason: NAT-Maurice 16- Past psychiatric history - Past Medical History Past Medical History: No medical history (Patient has been here several times and has received multiple CTs. December 14 Early this month he had a CT head, chest x-ray, ct neck, CTA chest and ct abdomen and pelvis. Findings significant for esophagitis, moderate hiatal hernia, stable small supraumbilical ventral abdominal hernias containing omental fat) - past Psychiatric treatment and history Psych: Anxiety, Addictions, Depression, Psychosis Mental Status Exam - Vital signs Last Vital Signs Temp 98.2 F 01/02/19 13:48 Pulse 87 01/02/19 13:48 Resp 16 01/02/19 13:48 BP 116/68 01/02/19 13:48 Pulse Ox 96 01/02/19 13:48 - Exam Narrative exam: MSE: Appearance: disheveled Behavior: poor eye contact Speech: regular rate with and tone Mood: "depressed" Affect: congruent to mood Thought Process: circumstantial Thought Content:SI/ no gestures of HI's Motor Activity: sitting up in bed Cognition: A/O x3 Insight: poor Judgment: poor Results Result Diagrams: 01/01/19 10:32 01/01/19 10:32 All other labs normal. Assessment and Plan Assessment and plan: Impression: MDD with psychotic symptoms. Alcohol Use DO. The patient endorses SI's. DDx: R/O Bipolar DO, R/O Alcohol Induced Mood DO, R/O Substance Induced Psychosis Recommendation/Plan: Continue 1013. Continue CIWA. Start home medications Prozac 20 mg PO daily and Zyprexa 10 mg PO HS Discussed possible suicidality/medication induced millie with the patient reference Prozac. Discussed possible metabolic side effects of Zyprexa with the patient. add vistaril 50mg tid for anxiety Dispo: The patient was referred to inpatient psy services. staffed with Dr Carlos Cobos.
[2019-01-02] MEDS: VISTARIL PO SCH (20:39)
[2019-01-03] MEDS: ALUM-MAG HYDROX-SIMETH 200-200-20MG/5ML PO PRN ×2 (08:30→10:55)
[2019-01-03] MEDS: VISTARIL PO SCH ×3 (08:30→22:08)
[2019-01-03] MEDS: PROzac PO SCH ×2 (10:55→11:03)
--- NOTE | 2019-01-03 12:32 | Progress Note ---
Subjective - Reason for Consult Consult date: 01/03/19 Reason for consult: Psychiatry Follow-up - Chief Complaint Chief complaint: 'I was having crisis" 53 year old male who presented to the ER for SI's and ETOH. This patient is known to me. Today the patient was calm and cooperative during the assessment. He stated that he was going through a "crisis." He stated that he consumed lots of alcohol (etoh) and became depressed.with SI's. He didn't want to discuss his stressors when asked, but acknowledged that he is feeling better. He stated that he does have a residence at "[place]." He denies SI/HI's and AVh's. He deneis any side effects of his medications. Mental Status Exam - Vital signs Last Vital Signs Temp 98 F 01/03/19 10:32 Pulse 81 01/03/19 10:32 Resp 18 01/03/19 10:32 BP 127/87 01/03/19 10:32 Pulse Ox 98 01/03/19 10:32 - Exam Narrative exam: MSE: Appearance: calm, cooperative Behavior: regular eye contact Speech: regular rate and tone Mood: "okay" Affect: congruent to mood Thought Process: circumstantial Thought Content: denies SI/HI's and AVH's Motor Activity: sitting up in the bed Cognition: A/O x 3 Insight: fair Judgment: variable to fair Assessment and Plan Impression: MDD with psychotic symptoms. Alcohol Use DO. DDx: R/O Bipolar DO, R/O Alcohol Induced Mood DO Recommendation/Plan: Reevaluate the patient's 1013 in 24 hours. Continue home medications Prozac 20 mg PO daily for depression, Zyprexa 10 mg PO HSfor mood/psychosis, and Vistaril 50 mg Po TID for anxiety. Discussed possible suicidality/medication induced millie with the patient reference Prozac. Discussed possible metabolic side effects of Zyprexa with the patient. He verbalized understanding for all his medications. Dispo: If the patient's 1013 is rescinded, he can follow up at [facility] for outpatient psy/rehab services. Will staff with Dr Carlos Cobos.
[2019-01-04] MEDS: VISTARIL PO SCH (08:05)
[2019-01-04 08:41] VITALS: BP 122/89
[2019-01-04] MEDS: PROzac PO SCH (11:00)
--- NOTE | 2019-01-04 11:13 | Progress Note ---
Subjective - Reason for Consult Consult date: 01/04/19 Reason for consult: Psychiatry Follow-up - Chief Complaint Chief complaint: 'I'm ready to go" 53 year old male who presented to the ER for SI's and ETOH. This patient is known to me. Today the patient was calm and cooperative during the assessment. He stated that he plan not to consume alcohol (etoh) and follow up with outpatient osy/rehab services when discharged. He denies SI/HI's and AVH's. He denies any side effects of his medications. Mental Status Exam - Vital signs Last Vital Signs Temp 97.7 F 01/04/19 08:36 Pulse 72 01/04/19 08:36 Resp 20 01/04/19 08:36 BP 122/89 01/04/19 08:36 Pulse Ox 98 01/04/19 08:36 - Exam Narrative exam: SE: Appearance: calm, cooperative Behavior: regular eye contact Speech: regular rate and tone Mood: "okay" Affect: congruent to mood Thought Process: linear Thought Content: denies SI/HI's and AVH's Motor Activity: sitting up in the bed Cognition: A/O x 3 Insight: appropriate Judgment: appropriate Assessment and Plan Impression: MDD with psychotic symptoms. Alcohol Use DO. Today the patient was calm and cooperative during the assessment. The patient's psychosis have resolved. The patient is no threat to self. DDx: R/O Bipolar DO, R/O Alcohol Induced Mood DO Recommendation/Plan: Rescind 013. Continue Prozac 20 mg PO daily for depression, Zyprexa 10 mg PO HS for mood/psychosis, and Vistaril 50 mg PO TID for anxiety. Discussed possible suicidality/medication induced millie with the patient reference Prozac. Discussed possible metabolic side effects of Zyprexa with the patient. He verbalized understanding for all his medications. Discussed the importance to abstaining from alcohol consumption with the patient, he verbalized understanding. Dispo: The patient can follow up with [facility] for outpatient psy/rehab services. Staffed with Dr Carlos Cobos.
== END 2019-01-04 12:36 | disposition home or self-care (01) ==
LOC: EEVIPCON 08:39 → ED 08:39
DX: F31.9 Bipolar disorder, unspecified (principal); F10.120 Alcohol abuse with intoxication, uncomplicated; K20.9 Esophagitis, unspecified; K44.9 Diaphragmatic hernia without obstruction or gangrene; I10 Essential (primary) hypertension; E11.9 Type 2 diabetes mellitus without complications; Z91.14 Patient's other noncompliance with medication regimen; Z98.890 Other specified postprocedural states; Z79.899 Other long term (current) drug therapy; Z88.0 Allergy status to penicillin
CPT/HCPCS: 36415; 71046; 80048; 80076; 80307; 81001; 82550; 82553; 83690; 83735; 84484; 85025; 93005; 93010; 96374; 99285; G0480; J2060; 80320; Q0162; Q0177

== ENCOUNTER 2019-01-10 22:24 | Emergency (ER) | payer MEDICAID ==
[2019-01-10 23:26] LABS: Basophils % (Auto) 0.6 % (0.0-1.8); Eosinophils % (Auto) 0.4 % (0.0-4.3); Hematocrit 39.6 % (35.5-45.6); Hemoglobin 12.9 gm/dl (11.8-15.2); Lymphocytes # (Auto) 1.9 K/mm3 (1.2-5.4); Lymphocytes % (Auto) 29.5 % (13.4-35.0); Mean Corpuscular HGB Conc 33 % (32-34); Mean Corpuscular Volume 79 fl (84-94); Monocytes # (Auto) 0.6 K/mm3 (0.0-0.8); Monocytes % (Auto) 8.6 % (0.0-7.3); Platelet Count 279 K/mm3 (140-440); Red Cell Distribution Width 18.9 % (13.2-15.2)
[2019-01-10 23:45] LABS: BUN/Creatinine Ratio 5; Blood Urea Nitrogen 6 mg/dL (9-20); Calcium 9.6 mg/dL (8.4-10.2); Hemolysis Index 12
[2019-01-11] MEDS ORDERED: VITAMIN B-1 100 MG, FOLVITE 1 MG, INFUVITE 10 ML in NACL 0.9% 1000 ML 1,000 ML IV ONE (00:26)
[2019-01-11] MEDS ORDERED: ATIVAN PO PRN (00:26)
[2019-01-11] MEDS ORDERED: NACL 0.9% 1000 ML 1,000 ML IV ONE (00:27)
[2019-01-11] MEDS: ATIVAN PO PRN ×4 (00:48→04:45)
--- NOTE | 2019-01-11 01:19 | Emergency Department Report ---
HPI - General Chief Complaint: Psych Time Seen by Provider: 01/11/19 00:08 - HPI HPI: 53-year-old -[place] male presents to the emergency department from his residence at [place] with complaints of alcohol intoxication, suicidal ideations, and some concerns for exacerbation of his schizophrenia. Patient says that he has not taken his medications for the past week or so which include Zyprexa and Paxil. He does admit to some auditory hallucinations. He does not have any particular plan as to how he would harm himself. He denies any homici lindsay ideations. The patient says he is very anxious and "pumped up." The patient has a history of alcohol intoxication and dependence and admits to drinking heavily over the past few weeks and 4/or months. He denies having a primary care physician or psychiatrist. He denies any tobacco or illicit drug use. ED Past Medical Hx - Past Medical History Previous Medical History?: Yes Hx Hypertension: Yes Hx Congestive Heart Failure: No Hx Diabetes: Yes Hx Psychiatric Treatment: Yes Hx Asthma: No Additional medical history: Umbillical hernia, colon polyps. colaspe lung/ CIRRHOIS, pancreatitis, ETOH abuse, esophagitis, hiatal hernia - Surgical History Past Surgical History?: Yes Additional Surgical History: ankle right surgery, Hernia - Social History Smoking Status: Never Smoker Substance Use Type: Alcohol - Medications Home Medications: Home Medications Medication Instructions Recorded Confirmed Last Taken Type Famotidine [Pepcid] 20 mg PO BID #30 tablet 06/20/18 01/02/19 Unknown Rx chlordiazePOXIDE [Librium] 25 mg PO Q6H PRN #30 capsule 06/20/18 01/01/19 Unknown Rx Sucralfate 1 gm PO QID 30 Days tablet 06/22/18 01/02/19 Unknown Rx oxyCODONE /ACETAMINOPHEN [Percocet 1 tab PO Q4HR #12 tab 06/22/18 01/02/19 Unknown Rx 5/325] FLUoxetine [PROzac] 20 mg PO QAM #30 capsule 01/03/19 Unknown Rx OLANzapine [Zyprexa] 10 mg PO HS #30 tablet 01/03/19 Unknown Rx hydrOXYzine PAMOATE [Vistaril] 50 mg PO TID #90 capsule 01/03/19 Unknown Rx ED Review of Systems ROS: Stated complaint: ETOH/GENERAL PAIN/MED REFILL Other details as noted in HPI Comment: All other systems reviewed and negative Constitutional: denies: chills, fever Eyes: denies: eye pain, vision change ENT: denies: ear pain, throat pain Respiratory: denies: cough, shortness of breath Cardiovascular: denies: chest pain, palpitations Gastrointestinal: denies: vomiting, diarrhea Genitourinary: denies: dysuria, discharge Musculoskeletal: myalgia. denies: joint swelling Skin: denies: rash, lesions Neurological: denies: numbness, paresthesias Psychiatric: auditory hallucinations, suicidal thoughts. denies: homicidal thoughts Physical Exam - Physical Exam Vital Signs: Vital Signs 01/10/19 01/11/19 22:33 00:09 Temperature 98 F Pulse Rate 115 H Respiratory 18 16 Rate Blood Pressure 121/75 O2 Sat by Pulse 96 Oximetry Physical Exam: GENERAL: The patient is well-developed well-nourished. HENT: Normocephalic. Atraumatic. Patient has moist mucous membranes. EYES: Extraocular motions are intact. NECK: Supple. Trachea is midline. CHEST/LUNGS: Clear to auscultation. There is no respiratory distress noted. HEART/CARDIOVASCULAR: Regular. There is mild tachycardia. There is no murmur. ABDOMEN: Abdomen is soft, nontender. Patient has normal bowel sounds. There is no abdominal distention. SKIN: Skin is warm and dry. NEURO: The patient is awake, alert, and oriented. The patient is cooperative. The patient has no focal neurologic deficits. The patient has normal speech. Patient has a mild bilateral upper extremity distal tremor with hands/arms extended. MUSCULOSKELETAL: There is no tenderness or deformity. There is no evidence of acute injury. PSYCH: Patient has some pressured speech. Appears anxious. ED Course Vital Signs 01/10/19 01/11/19 22:33 00:09 Temperature 98 F Pulse Rate 115 H Respiratory 18 16 Rate Blood Pressure 121/75 O2 Sat by Pulse 96 Oximetry ED Medical Decision Making - Lab Data Result diagrams: 01/10/19 23:06 01/10/19 23:06 - Medical Decision Making This is a patient who presents with a history of schizophrenia and medication noncompliance. He has suicidal ideations for which she has been made a 1013. On top of that, the patient has history of alcohol dependence and withdrawal. He was placed on the alcohol withdrawal protocol. His blood alcohol level was 0.26. He has received some IV fluid resuscitation and banana bag. The patient did present with some initial tachycardia but his vital signs have improved and he does not appear to be in any delirium tremens. At this point the patient is medically cleared for psychiatric placement. - Differential Diagnosis schizophrenia, bipolar disorder, alcohol withdrawal, occult dependence Critical Care Time: No Critical care attestation.: If time is entered above; I have spent that time in minutes in the direct care of this critically ill patient, excluding procedure time. ED Disposition Clinical Impression: Suicidal ideations Alcohol intoxication Qualifiers: Complication of substance-induced condition: uncomplicated Qualified Code(s): F10.920 - Alcohol use, unspecified with intoxication, uncomplicated Alcohol withdrawal Qualifiers: Complication of substance-induced condition: uncomplicated Qualified Code(s): F10.230 - Alcohol dependence with withdrawal, uncomplicated Disposition: DC/TX-65 PSY HOSP/PSY UNIT Is pt being admited?: No Condition: Stable Time of Disposition: 01:51
[2019-01-11 04:14] LABS: Amphetamine Screen,Urine PRESUMPTIVE NEGATIVE; Benzodiazepines Screen,Urine PRESUMPTIVE NEGATIVE; Bilirubin,Urine NEG (Negative); Blood,Urine NEG (Negative); Cannabinoid Screen,Urine PRESUMPTIVE NEGATIVE; Cocaine Screen,Urine PRESUMPTIVE NEGATIVE; Color,Urine Yellow (Yellow); Methadone Screen,Urine PRESUMPTIVE NEGATIVE; Mucus,Urine FEW /HPF; Opiate Screen,Urine PRESUMPTIVE NEGATIVE; Protein,Urine <15 mg/dL mg/dL (Negative); Urobilinogen,Urine < 2.0 mg/dL (<2.0)
--- NOTE | 2019-01-11 14:35 | Consultation ---
History of Present Illness - Reason for Consult Consult date: 01/11/19 Reason for consult: Mental Health Evaluation Requesting physician: LAKSHMI NICOLE - Chief Complaint Chief complaint: "Come back tomorrow" - History of Present Psychiatric Illness 53 y.o. AA male who presented to the ER for ETOH and SI's. This patient is known to me. Today the patient is intoxicated during the assessment. He asked me the provider to return in 24 hours. The psy assessment could not be completed because of the patient's condition. Medications and Allergies Allergies Allergy/AdvReac Type Severity Reaction Status Date / Time Penicillins Allergy Hives Verified 01/01/19 08:47 Home Medications Medication Instructions Recorded Confirmed Last Taken Type Famotidine [Pepcid] 20 mg PO BID #30 tablet 06/20/18 01/02/19 Unknown Rx chlordiazePOXIDE [Librium] 25 mg PO Q6H PRN #30 capsule 06/20/18 01/01/19 Unknown Rx Sucralfate 1 gm PO QID 30 Days tablet 06/22/18 01/02/19 Unknown Rx oxyCODONE /ACETAMINOPHEN [Percocet 1 tab PO Q4HR #12 tab 06/22/18 01/02/19 Unknown Rx 5/325] FLUoxetine [PROzac] 20 mg PO QAM #30 capsule 01/03/19 Unknown Rx OLANzapine [Zyprexa] 10 mg PO HS #30 tablet 01/03/19 Unknown Rx hydrOXYzine PAMOATE [Vistaril] 50 mg PO TID #90 capsule 01/03/19 Unknown Rx Active Meds: Active Medications Lorazepam (Ativan) 2 mg PO Q1HR PRN PRN Reason: CIWA-Ar 8-15 Lorazepam (Ativan) 4 mg PO Q1HR PRN PRN Reason: CIWA-Ar 16-25 Last Admin: 01/11/19 04:45 Dose: 4 mg Documented by: Past psychiatric history - Past Medical History Past Medical History: other (Unable to obtain ) Past Surgical History: Other (Unable to obatin ) - past Psychiatric treatment and history psychiatric treatment history: Hx of alcoholism and depression. Unable to obtain a fam psy hx. - Social History Social history: other (Unbale to obtain ) Mental Status Exam - Vital signs Last Vital Signs Temp 97.3 F L 01/11/19 08:09 Pulse 97 H 01/11/19 08:09 Resp 16 01/11/19 08:09 BP 130/92 01/11/19 08:09 Pulse Ox 99 01/11/19 08:09 - Exam Narrative exam: Unable to complete the MSE because of the patient's condition. Results Result Diagrams: 01/10/19 23:06 01/10/19 23:06 Abnormal lab results 01/10/19 01/10/19 01/10/19 Range/Units 23:06 23:06 23:06 MCV (84-94) fl MCH (28-32) pg RDW (13.2-15.2) % Iron % (Auto) (0.0-7.3) % Chloride 94.6 L (98-107) mmol/L BUN 6 L (9-20) mg/dL Glucose 123 H (75-100) mg/dL Salicylates < 0.3 L (2.8-20.0) mg/dL Acetaminophen < 5.0 L (10.0-30.0) ug/mL Plasma/Serum Alcohol (0-0.07) % 01/10/19 01/10/19 Range/Units 23:06 23:06 MCV 79 L (84-94) fl MCH 26 L (28-32) pg RDW 18.9 H (13.2-15.2) % Iron % (Auto) 8.6 H (0.0-7.3) % Chloride (98-107) mmol/L BUN (9-20) mg/dL Glucose (75-100) mg/dL Salicylates (2.8-20.0) mg/dL Acetaminophen (10.0-30.0) ug/mL Plasma/Serum Alcohol 0.26 H (0-0.07) % All other labs normal. Assessment and Plan Assessment and plan: Impression: Alcohol Intoxication. Today the patient is intoxicated and the psy assessment could not be completed. Recommendation/Plan: Continue 1013. Consider a 2013 if indicated in 24 hours once the patient is assessed by the provider (psy team). . Dispo: Proper dispo will be determined once the patient is assessed by the psy team. Staffed with Dr Carlos Cobos.
--- NOTE | 2019-01-12 12:51 | Progress Note ---
Subjective - Reason for Consult Consult date: 01/12/19 Reason for consult: Psychiatric Follow-up Evaluation - Chief Complaint Chief complaint: " I was drunk" Patient is a 53 y.o. male who presented to the ER for ETOH and SI's. This patient is known to me. Today patient is calm but guarded during the assessment. He has a PPHx schizophrenia and alcohol abuse. He reports good energy, appetite, and sleep. He endorses auditory hallucinations telling him to harm himself. He denies SI/HI, VH's, and delusions. Patient verbalizes that he has been compliant with his medications, Prozac and Zyprexa. Current Psychiatric Medication: Prozac 20mg po QAM, Zyprexa 20mg po QHS. Last compliant 01/10/19. Past Psychiatric History: Schizophrenia ( 2017), Alcohol Use Disorder ( Age 16); More than 10 previous inpatient psychiatric hospitalizations; no outpatient psychiatrist; no previous suicide attempts. History of Drug/Alcohol Abuse: Alcohol- daily, 2 6 ppd daily, last drink- 01/10/19; first use- age 16. History of Trauma/Abuse: Patient denies trauma, sexual/physical/mental abuse. Family History of Psychiatric Illness/Substance Abuse: Patient denies. Mental Status Exam - Vital signs Last Vital Signs Temp 98.6 F 01/12/19 02:01 Pulse 91 H 01/12/19 02:01 Resp 18 01/12/19 02:01 BP 128/77 01/12/19 02:01 Pulse Ox 97 01/12/19 02:01 - Exam Narrative exam: Mental Status Exam Appearance: disheveled Behavior: poor eye contact, guarded Speech: regular rate with and tone Mood: "fine"; depressed Affect: congruent to mood Thought Process: impoverished, circumstantial Thought Content: no gestures of SI/HI's, VH's, and delusions; + AH's Motor Activity: sitting up in bed Cognition: A/O x 3 Insight: poor Judgment: poor Assessment and Plan Impression: PPHx Schizophrenia. Alcohol Intoxication. Today the patient is calm but guarded during the assessment. Thought content impoverished. He endorses command AH's telling him to harm himself. Recommendation/Plan: 1. Continue 1013. 2. Restart home medications: Prozac 20mg po QAM depression/anxiety, Zyprexa 20mg po QHS mood/psychosis. Discussed metabolic side effects and possible increase suicidality/ medication induced millie. Patient verbalizes understanding. 3. Continue CIWA protocol. Disposition: Will reassess in [address] Carlos Cobos.
[2019-01-13] MEDS ORDERED: MILK OF MAGNESIA PO ONE (00:40)
[2019-01-13 09:14] VITALS: BP 132/91
--- NOTE | 2019-01-13 09:24 | Progress Note ---
Subjective - Reason for Consult Consult date: 01/13/19 Reason for consult: Psychiatry Follow-up - Chief Complaint Chief complaint: "I'm okay now" 53 y.o. male who presented to the ER for ETOH and SI's. This patient is known to me. Today patient was calm and cooperative during the assessment. He stated that he feel much better and would like to be discharged. He is known to come to the ER and endorse SI's while intoxicated. He denies S I/HI's and AVH's. He stated that he plan to go to rehab for his alcoholism when discharged. Mental Status Exam - Vital signs Last Vital Signs Temp 98.3 F 01/13/19 08:02 Pulse 86 01/13/19 08:02 Resp 18 01/13/19 08:02 BP 132/91 01/13/19 08:02 Pulse Ox 98 01/13/19 08:02 - Exam Narrative exam: MSE: Appearance: calm, cooperative Behavior: regular eye contact Speech: regular rate and tone Mood: "okay" Affect: congruent to mood Thought Process: linear Thought Content: denies SI/HI's and AVH's Motor Activity: sitting up in the bed Cognition: A/O x 3 Insight: appropriate Judgment: appropriate Assessment and Plan Impression: Alcohol Intoxication. Hx of Depression. Today the patient was calm and cooperative during the assessment. No acute withdrawals noted (etoh). The patient is no threat to self. Recommendation/Plan: Rescind 1013 and continue Zyprexa 20 mg PO HS for mood and Prozac 20 mg Po daily for depression. Discussed possible suicidality/medication induced millie with the patient reference Prozac. Discussed possible metabolic side effects of Zyprexa with the patient. He verbalized understanding for all his medications. Discussed the importance to abstaining from alcohol consumption with the patient, he verbalized understanding. . Dispo: The patient can follow up with [facility] for outpatient psy/rehab services. Will staff with Dr Carlos Cobos.
[2019-01-13] MEDS ORDERED: PROzac PO SCH (10:00)
== END 2019-01-13 13:34 | disposition home or self-care (01) ==
LOC: ED 22:24 → EEVIPCON 22:24 → ED 01-13 13:34
DX: F10.230 Alcohol dependence with withdrawal, uncomplicated (principal); R45.851 Suicidal ideations; F20.9 Schizophrenia, unspecified; I10 Essential (primary) hypertension; E11.9 Type 2 diabetes mellitus without complications; Z88.0 Allergy status to penicillin; Z98.890 Other specified postprocedural states; Z79.899 Other long term (current) drug therapy
CPT/HCPCS: 36415; 80048; 80307; 81001; 85025; 96365; 96366; 99284; G0480; J3411; J7030; 80320; 83690

== ENCOUNTER 2019-01-23 05:40 | Emergency (ER) | payer MEDICAID ==
[2019-01-23 06:40] LABS: Alanine Aminotransferase 11 units/L (7-56); Albumin 3.6 g/dL (3.9-5); BUN/Creatinine Ratio 9; Blood Urea Nitrogen 6 mg/dL (9-20); Calcium 9.2 mg/dL (8.4-10.2); Hemolysis Index 59
[2019-01-23 07:02] LABS: Hematocrit 40.1 % (35.5-45.6); Hemoglobin 12.7 gm/dl (11.8-15.2); Mean Corpuscular HGB Conc 32 % (32-34); Mean Corpuscular Volume 81 fl (84-94); Platelet Count 297 K/mm3 (140-440); Red Blood Count 4.95 M/mm3 (3.65-5.03); Red Cell Distribution Width 19.3 % (13.2-15.2)
[2019-01-23] MEDS ORDERED: HALDOL IM ONE (07:26)
[2019-01-23] MEDS ORDERED: NACL 0.9% 1000 ML 2,000 ML IV ONE (07:26)
[2019-01-23] MEDS ORDERED: PROTONIX IV ONE (07:27)
[2019-01-23 07:49] LABS: Color,Urine Yellow (Yellow)
[2019-01-23 07:50] LABS: Bilirubin,Urine NEG (Negative); Blood,Urine NEG (Negative); Protein,Urine <15 mg/dL mg/dL (Negative); WBC,Urine < 1.0 /HPF (0.0-6.0)
[2019-01-23 08:00] LABS: Amphetamine Screen,Urine PRESUMPTIVE NEGATIVE; Benzodiazepines Screen,Urine PRESUMPTIVE NEGATIVE; Cannabinoid Screen,Urine PRESUMPTIVE NEGATIVE; Cocaine Screen,Urine PRESUMPTIVE NEGATIVE; Methadone Screen,Urine PRESUMPTIVE NEGATIVE; Opiate Screen,Urine PRESUMPTIVE NEGATIVE
[2019-01-23 08:09] LABS: INR 1.03 (0.87-1.13)
[2019-01-23 08:10] LABS: Partial Thromboplastin Time 25.4 Sec. (24.2-36.6)
--- NOTE | 2019-01-23 08:13 | XRay Report ---
Acute abdomen series 3 views [id number] INDICATION: Abdominal pain, vomiting, duration one day COMPARISON: Chest x-ray 01/01/2019 Lung ramirez remain clear. No pneumoperitoneum is seen. Moderate amount of stool is seen in the right colon which might indicate mild constipation. No bowel dilatation is seen to suggest obstruction. Roland cifications bilaterally in the pelvis probably are vascular. Signer Name: Octavio Crawford MD Signed: 01/23/2019 8:08 AM Workstation Name: [id number]
--- NOTE | 2019-01-23 08:52 | Emergency Department Report ---
ED Abdominal Pain HPI - General Chief Complaint: Abdominal Pain Stated Complaint: CHEST PAIN Time Seen by Provider: 01/23/19 06:41 Source: patient, EMS Mode of arrival: Stretcher Limitations: Physical Limitation - History of Present Illness Initial Comments: Patient reports hx chronic alcoholism. Reports he drank today. Reports abdominal pain radiating up to his chest and to his back. reports similar symptoms in the past. Reports some nausea. Denies trauma. Reports depression and suicidal ideation with no plan. MD Complaint: abdominal pain -: Gradual, days(s) Location: diffuse Radiation: back, chest Migration to: no migration Severity: mild Severity scale (0 -10): 2 Quality: aching Consistency: intermittent Improves With: nothing Worsens With: other (alcohol) Associated Symptoms: nausea, other (depression with SI). denies: vomiting, d iarrhea, fever, chills, constipation, dysuria, hematemesis, hematochezia, melena, hematuria, anorexia, syncope - Related Data Home Medications Medication Instructions Recorded Confirmed Last Taken OLANzapine [Zyprexa] 20 mg PO BID 01/23/19 01/23/19 Unknown Previous Rx's Medication Instructions Recorded Last Taken Type FLUoxetine [PROzac] 20 mg PO QAM #30 capsule 01/13/19 Unknown Rx Allergies Allergy/AdvReac Type Severity Reaction Status Date / Time Penicillins Allergy Hives Verified 01/01/19 08:47 ED Review of Systems ROS: Stated complaint: CHEST PAIN Other details as noted in HPI Other: GENERAL: No weight change, fatigue, weakness, fever, chills, or night sweats SKIN: No changes in skin or hair, no itching, no rashes, no jaundice HEAD: No trauma, headache, or visual changes EYES: No blurriness, tearing, itching, acute visual loss, conjunctival discoloration, or scleral icterus EARS: No hearing loss, tinnitus, vertigo, or earache NOSE: No rhinorrhea, stuffiness, sneezing, itching, or epistaxis MOUTH: No bleeding gums, hoarseness, sore throat, or swelling CARDIAC: Chest pain. No new murmur, palpitations, dyspnea on exertion, orthopnea, PND, or edema RESPIRATORY: No shortness of breath, wheeze, cough, sputum production, hemoptysis, pneumonia, asthma, bronchitis, or emphysema GI: Abdominal pain and nausea. No change in appetite,vomiting, dysphagia, change in bowel frequency, diarrhea, constipation, bleeding, hematemesis, melena, hematochezia URINARY: No frequency, urgency, polyuria, dysuria, hematuria, or incontinence MUSCULOSKELETAL: Back pain. No muscle weakness, joint stiffness, decrease in range of motion, redness, swelling NEUROLOGIC: No loss of sensation, numbness, tingling, tremors, weakness, paralysis, seizures HEMATOLOGIC: No anemia, easy bruising, bleeding, petechiae, or purpura ENDOCRINE: No hot or cold intolerance, sweating, polyuria, polydipsia or, polyphagia no thyroid problems PSYCHIATRIC: Depression and SI. No HI ED Past Medical Hx - Past Medical History Hx Hypertension: Yes Hx Congestive Heart Failure: No Hx Diabetes: Yes Hx Psychiatric Treatment: Yes Hx Asthma: No Additional medical history: Umbillical hernia, colon polyps. colaspe lung/ CIRRH OIS, pancreatitis, ETOH abuse, esophagitis, hiatal hernia - Surgical History Additional Surgical History: ankle right surgery, Hernia - Social History Smoking Status: Never Smoker Substance Use Type: Alcohol - Medications Home Medications: Home Medications Medication Instructions Recorded Confirmed Last Taken Type FLUoxetine [PROzac] 20 mg PO QAM #30 capsule 01/13/19 01/23/19 Unknown Rx OLANzapine [Zyprexa] 20 mg PO BID 01/23/19 01/23/19 Unknown History ED Physical Exam - General Limitations: Physical Limitation - Other Other exam information: GENERAL: Patient in no acute distress HEAD: Normocephalic, atraumatic EYES: PERRLA, EOM intact, no scleral icterus, no papilledema, no conjunctival hemorrhage, visual ramirez and acuity wnl, EARS: No tenderness, discharge, tympanic membrane wnl NOSE: No tenderness, discharge, sinus tenderness MOUTH: No erythema, bleeding, exudate HEART: Regular rate and rhythm, no murmur, S1-S2 are auscultated, pulses are symmetric LUNGS: No wheezing, rales, rhonchi, bilateral breath sounds ABDOMEN: Normal bowel sounds, no tenderness, no rebound, no guarding, no masses, no CVA tenderness MUSCULOSKELETAL: Normal joint range of motion, no redness, no swelling, no tenderness NEUROLOGIC: GCS 15, Alert and Oriented x3, Cranial nerves intact, normal sensation, normal strength, normal gait, no cerebellar deficit PSYCHIATRIC: Depression, and SI no plan. No homicidal or hallucinations SKIN: Skin is warm and dry, no wounds, no rashes ED Course Vital Signs 01/23/19 01/23/19 01/23/19 05:45 06:46 06:48 Temperature 97.6 F 98.0 F Pulse Rate 88 88 88 Respiratory 18 13 12 Rate Blood Pressure 160/100 Blood Pressure 128/91 [Left] O2 Sat by Pulse 99 99 Oximetry 01/23/19 01/23/19 01/23/19 07:00 07:43 08:00 Temperature Pulse Rate 89 85 87 Respiratory 13 12 16 Rate Blood Pressure 129/86 137/86 140/93 Blood Pressure [Left] O2 Sat by Pulse Oximetry 01/23/19 01/23/19 01/23/19 08:31 08:47 09:00 Temperature Pulse Rate 83 74 80 Respiratory 14 17 18 Rate Blood Pressure 137/86 151/95 Blood Pressure 143/65 [Left] O2 Sat by Pulse 100 Oximetry 01/23/19 01/23/19 01/23/19 09:31 10:00 10:31 Temperature Pulse Rate 83 82 Respiratory 14 18 18 Rate Blood Pressure 143/90 145/95 140/87 Blood Pressure [Left] O2 Sat by Pulse Oximetry 01/23/19 01/23/19 11:01 11:31 Temperature Pulse Rate Respiratory 15 12 Rate Blood Pressure 128/72 121/69 Blood Pressure [Left] O2 Sat by Pulse Oximetry ED Medical Decision Making - Lab Data Result diagrams: 01/23/19 05:56 01/23/19 05:56 Laboratory Results - last 24 hr 01/23/19 01/23/19 01/23/19 05:56 05:56 05:56 WBC 5.9 RBC 4.95 Hgb 12.7 Hct 40.1 MCV 81 L MCH 26 L MCHC 32 RDW 19.3 H Plt Count 297 Lymph % (Auto) Chair Installer [place] % (Auto) Chair Installer Eos % (Auto) Chair Installer Baso % (Auto) Chair Installer Lymph # Chair Installer [place] # Chair Installer Eos # Chair Installer Baso # Chair Installer Seg Neutrophils % Chair Installer Seg Neutrophils # Chair Installer PT INR APTT D-Dimer Sodium 138 Potassium 4.4 Chloride 101.9 Carbon Dioxide 21 L Anion Gap 20 BUN 6 L Creatinine 0.7 L Estimated GFR > 60 BUN/Creatinine Ratio 9 Glucose 100 Calcium 9.2 Magnesium Total Bilirubin 0.30 AST 21 ALT 11 Alkaline Phosphatase 77 Troponin T Total Protein 6.8 Albumin 3.6 L Albumin/Globulin Ratio 1.1 Lipase 12 L Urine Color Urine Turbidity Urine pH Ur Specific [place] Urine Protein Urine Glucose (UA) Urine Ketones Urine Blood Urine Nitrite Urine Bilirubin Urine Urobilinogen Ur Leukocyte Esterase Urine WBC (Auto) Urine RBC (Auto) Urine Opiates Screen Urine Methadone Screen Ur Barbiturates Screen Ur Phencyclidine Scrn Ur Amphetamines Screen U Benzodiazepines Scrn Urine Cocaine Screen U Marijuana (THC) Screen Drugs of Abuse Note Plasma/Serum Alcohol < 0.01 01/23/19 01/23/19 01/23/19 07:24 07:24 07:43 WBC RBC Hgb Hct MCV MCH MCHC RDW Plt Count Lymph % (Auto) [place] % (Auto) Eos % (Auto) Baso % (Auto) Lymph # [place] # Eos # Baso # Seg Neutrophils % Seg Neutrophils # PT INR APTT D-Dimer Sodium Potassium Chloride Carbon Dioxide Anion Gap BUN Creatinine Estimated GFR BUN/Creatinine Ratio Glucose Calcium Magnesium Total Bilirubin AST ALT Alkaline Phosphatase Troponin T < 0.010 Total Protein Albumin Albumin/Globulin Ratio Lipase Urine Color Yellow Urine Turbidity Clear Urine pH 6.0 Ur Specific [place] 1.010 Urine Protein <15 mg/dl Urine Glucose (UA) Neg Urine Ketones Neg Urine Blood Neg Urine Nitrite Neg Urine Bilirubin Neg Urine Urobilinogen 2.0 Ur Leukocyte Esterase Neg Urine WBC (Auto) < 1.0 Urine RBC (Auto) 1.0 Urine Opiates Screen Presumptive negative Urine Methadone Screen Presumptive negative Ur Barbiturates Screen Presumptive negative Ur Phencyclidine Scrn Presumptive negative Ur Amphetamines Screen Presumptive negative U Benzodiazepines Scrn Presumptive negative Urine Cocaine Screen Presumptive negative U Marijuana (THC) Screen Presumptive negative Drugs of Abuse Note Disclamer Plasma/Serum Alcohol 01/23/19 01/23/19 07:43 07:43 WBC RBC Hgb Hct MCV MCH MCHC RDW Plt Count Lymph % (Auto) [place] % (Auto) Eos % (Auto) Baso % (Auto) Lymph # [place] # Eos # Baso # Seg Neutrophils % Seg Neutrophils # PT 13.2 INR 1.03 APTT 25.4 D-Dimer 228.31 Sodium Potassium Chloride Carbon Dioxide Anion Gap BUN Creatinine Estimated GFR BUN/Creatinine Ratio Glucose Calcium Magnesium 1.90 Total Bilirubin AST ALT Alkaline Phosphatase Troponin T Total Protein Albumin Albumin/Globulin Ratio Lipase Urine Color Urine Turbidity Urine pH Ur Specific [place] Urine Protein Urine Glucose (UA) Urine Ketones Urine Blood Urine Nitrite Urine Bilirubin Urine Urobilinogen Ur Leukocyte Esterase Urine WBC (Auto) Urine RBC (Auto) Urine Opiates Screen Urine Methadone Screen Ur Barbiturates Screen Ur Phencyclidine Scrn Ur Amphetamines Screen U Benzodiazepines Scrn Urine Cocaine Screen U Marijuana (THC) Screen Drugs of Abuse Note Plasma/Serum Alcohol - EKG Data When compared to previous EKG there are: no significant change - Radiology Data Radiology results: report reviewed - Medical Decision Making Patient medically clear for transfer Critical care attestation.: If time is entered above; I have spent that time in minutes in the direct care of this critically ill patient, excluding procedure time. ED Disposition Clinical Impression: Alcohol abuse, Suicidal ideation Depression Qualifiers: Depression Type: unspecified Qualified Code(s): F32.9 - Major depressive disorder, single episode, unspecified Disposition: DC/TX-65 PSY HOSP/PSY UNIT Is pt being admited?: No Condition: Stable Referrals: LINDA FISHER MD [Primary Care Provider] - 3-5 Days
[2019-01-23] MEDS: PROzac PO SCH (15:28)
--- NOTE | 2019-01-23 17:19 | Consultation ---
History of Present Illness - Reason for Consult Consult date: 01/23/19 Reason for consult: psych eval - Chief Complaint Chief complaint: "depressed and hearing voices" - History of Present Psychiatric Illness 53 year old male seen for psychiatric evaluation in the ER. He has 16 visits documented in the last 12 months. He says he needs his medications. He states he is depressed and is hearing voices he cannot understand. He then went to sleep. No signs of withdrawal observed. Med hx: Umbillical hernia, colon polyps. collapsed lung/ Cirrhosis, pancreatitis, esophagitis, hiatal hernia Surgical History: ankle right surgery, Hernia psych history: multiple psych hospitalizations. Unable to gather additional information at this time. Medications and Allergies Allergies Allergy/AdvReac Type Severity Reaction Status Date / Time Penicillins Allergy Hives Verified 01/01/19 08:47 Home Medications Medication Instructions Recorded Confirmed Last Taken Type FLUoxetine [PROzac] 20 mg PO QAM #30 capsule 01/13/19 01/23/19 Unknown Rx OLANzapine [Zyprexa] 20 mg PO BID 01/23/19 01/23/19 Unknown History Active Meds: Active Medications Fluoxetine HCl (Prozac) 20 mg PO [facility] Last Admin: 01/23/19 15:28 Dose: 20 mg Documented by: Olanzapine (Zyprexa) 20 mg PO [facility] Mental Status Exam - Vital signs Last Vital Signs Temp 98.0 F 01/23/19 06:48 Pulse 82 01/23/19 10:00 Resp 12 01/23/19 11:31 BP 121/69 01/23/19 11:31 Pulse Ox 100 01/23/19 08:47 - Exam Narrative exam: MSE: Appearance: disheveled Behavior: poor eye contact/went to sleep Speech: regular rate with and tone Mood: "depressed" Affect: congruent to mood Thought Process: limited in scope Thought Content:SI/ no gestures of HI's Motor Activity: lying in bed Cognition: A/O x3 Insight: poor Judgment: poor Results Result Diagrams: 01/23/19 05:56 01/23/19 05:56 Abnormal lab results 01/23/19 01/23/19 Range/Units 05:56 05:56 MCV 81 L (84-94) fl MCH 26 L (28-32) pg RDW 19.3 H (13.2-15.2) % Carbon Dioxide 21 L (22-30) mmol/L BUN 6 L (9-20) mg/dL Creatinine 0.7 L (0.8-1.5) mg/dL Albumin 3.6 L (3.9-5) g/dL Lipase 12 L (13-60) units/L All other labs normal. Assessment and Plan Assessment and plan: Impression: MDD with psychotic symptoms. Alcohol Use DO. (ETOH level 0.01 this visit). Level has been elevated in previous visits. The patient endorses SI's. DDx: R/O Bipolar DO, R/O Alcohol Induced Mood DO, R/O Substance Induced Psychosis Recommendation/Plan: Continue 1013. consider CIWA monitoring Med order adjusted based on home med. He received zyprexa 20mg this am which would make him sedated during the day. It should be given once daily at bedtime. Continue Prozac 20 mg PO daily as ordered. Attempted to discuss possible metabolic side effects of Zyprexa with the patient and risk of eps/td. Dispo: The patient was referred to inpatient psy services. staffed with Dr Carlos Cobos.
[2019-01-24 07:47] VITALS: BP 122/81
--- NOTE | 2019-01-24 08:19 | Progress Note ---
Subjective - Reason for Consult Consult date: 01/24/19 Reason for consult: Psychiatry Follow-up - Chief Complaint Chief complaint: "I am okay" 53 year old male seen for psychiatric evaluation in the ER. He has 16 visits documented in the last 12 months. This patient is known to me. Today the patient was calm and cooperative during the assessment. He stated that he is okay and would like to leave. He stated, 'I was okay yesterday." He denies SI/HI's and AVH's. He denies any side effects of his medication. Mental Status Exam - Vital signs Last Vital Signs Temp 98.2 F 01/24/19 07:45 Pulse 78 01/24/19 07:45 Resp 18 01/24/19 07:45 BP 122/81 01/24/19 07:45 Pulse Ox 98 01/24/19 07:45 - Exam Narrative exam: MSE: Appearance: calm, cooperative Behavior: regular eye contact Speech: regular rate and tone Mood: "okay" Affect: congruent to mood Thought Process: linear Thought Content: denies SI/HI's and AVH's Motor Activity: sitting up in the bed Cognition: A/O x 3 Insight: appropriate Judgment: appropriate Assessment and Plan Impression: MDD with psychosis. Hx of Alcohol Abuse. Today the patient was calm and cooperative during the assessment. No overt psyhcosis with the patient. Recommendation/Plan: Rescind 1013 and continue Zyprexa 20 mg PO HS for mood and Prozac 20 mg Po daily for depression. Discussed possible suicidality/medication induced millie with the patient reference Prozac. Discussed possible metabolic side effects of Zyprexa with the patient. He verbalized understanding for all his medications. Dispo: The patient can follow up with [facility] for outpatient psy/rehab services. Will staff with Dr Carlos Cobos.
[2019-01-24] MEDS: PROzac PO SCH (09:30)
== END 2019-01-24 12:21 | disposition home or self-care (01) ==
LOC: ED 05:40
DX: F10.10 Alcohol abuse, uncomplicated (principal); F32.9 Major depressive disorder, single episode, unspecified; R45.851 Suicidal ideations; I10 Essential (primary) hypertension; E11.9 Type 2 diabetes mellitus without complications; Z88.0 Allergy status to penicillin; Z98.890 Other specified postprocedural states
CPT/HCPCS: 36415; 74022; 80053; 80307; 81001; 83690; 83735; 84484; 85025; 85379; 85610; 85730; 93005; 93010; 96372; 96374; 99285; C9113; G0480; J1630; J7030; 80320

== ENCOUNTER 2019-01-29 14:34 | Emergency (ER) | payer MEDICAID ==
--- NOTE | 2019-01-29 14:49 | Event Note ---
ED Screening Note Date of service: 01/29/19 Time: 14:42 ED Screening Note: 53 y/o male comes in for homicidal ideation Plan to run in front of a bus. This initial assessment/diagnostic orders/clinical plan/treatment(s) is/are subject to change based on patients health status, clinical progression and re- assessment by fellow clinical providers in the ED. Further treatment and workup at subsequent clinical providers discretion. Patient/guardian urged not to elope from the ED as their condition may be serious if not clinically assessed and managed. Initial orders include:
[2019-01-29 15:13] LABS: Basophils # (Auto) 0.1 K/mm3 (0.0-0.1); Basophils % (Auto) 0.7 % (0.0-1.8); Eosinophils # (Auto) 0.1 K/mm3 (0.0-0.4); Eosinophils % (Auto) 1.2 % (0.0-4.3); Hematocrit 35.5 % (35.5-45.6); Hemoglobin 11.5 gm/dl (11.8-15.2); Lymphocytes # (Auto) 1.6 K/mm3 (1.2-5.4); Lymphocytes % (Auto) 20.8 % (13.4-35.0); Mean Corpuscular HGB Conc 32 % (32-34); Mean Corpuscular Volume 80 fl (84-94); Monocytes # (Auto) 0.4 K/mm3 (0.0-0.8); Monocytes % (Auto) 4.9 % (0.0-7.3); Platelet Count 333 K/mm3 (140-440); Red Blood Count 4.45 M/mm3 (3.65-5.03); Red Cell Distribution Width 18.8 % (13.2-15.2)
[2019-01-29 15:33] LABS: Alanine Aminotransferase 17 units/L (7-56); Albumin 3.8 g/dL (3.9-5); BUN/Creatinine Ratio 11; Blood Urea Nitrogen 9 mg/dL (9-20); Calcium 8.8 mg/dL (8.4-10.2); Hemolysis Index 0
[2019-01-29 16:34] LABS: Bilirubin,Urine NEG (Negative); Blood,Urine NEG (Negative); Color,Urine Straw (Yellow); Protein,Urine <15 mg/dL mg/dL (Negative); Urobilinogen,Urine < 2.0 mg/dL (<2.0); WBC,Urine < 1.0 /HPF (0.0-6.0)
[2019-01-29 16:46] LABS: Amphetamine Screen,Urine PRESUMPTIVE NEGATIVE; Benzodiazepines Screen,Urine PRESUMPTIVE NEGATIVE; Cannabinoid Screen,Urine PRESUMPTIVE NEGATIVE; Cocaine Screen,Urine PRESUMPTIVE NEGATIVE; Methadone Screen,Urine PRESUMPTIVE NEGATIVE; Opiate Screen,Urine PRESUMPTIVE NEGATIVE
[2019-01-29] MEDS ORDERED: LIBRIUM PO PRN ×2 (16:51)
[2019-01-29] MEDS ORDERED: ATIVAN PO PRN ×2 (16:51)
[2019-01-29] MEDS ORDERED: ATIVAN IV PRN (16:51)
--- NOTE | 2019-01-29 16:55 | Emergency Department Report ---
ED General Adult HPI - General Chief complaint: Psych Stated complaint: SUICIDAL Time Seen by Provider: 01/29/19 16:37 Source: patient Mode of arrival: Ambulatory Limitations: No Limitations - History of Present Illness Initial comments: Patient presents to the emergency department with a chief complaint suicidal thoughts. Patient states it been off his medications quite some time. Plan will be to jump in front of a bus or jump from a roof of a building. Patient is also concerned about going into DTs because he drinks 6 beers daily as well as a fifth of alcohol. Last drink was yesterday. -: Gradual Consistency: constant Improves with: none Worsens with: none Associated Symptoms: denies other symptoms Treatments Prior to Arrival: none - Related Data Home Medications Medication Instructions Recorded Confirmed Last Taken OLANzapine [Zyprexa] 20 mg PO BID 01/23/19 01/23/19 Unknown Previous Rx's Medication Instructions Recorded Last Taken Type FLUoxetine [PROzac] 20 mg PO QAM #30 capsule 01/13/19 Unknown Rx Allergies Allergy/AdvReac Type Severity Reaction Status Date / Time Penicillins Allergy Hives Verified 01/01/19 08:47 ED Review of Systems ROS: Stated complaint: SUICIDAL Other details as noted in HPI Comment: All other systems reviewed and negative Constitutional: denies: chills, fever Eyes: denies: eye pain, eye discharge, vision change ENT: denies: ear pain, throat pain Respiratory: denies: cough, shortness of breath, wheezing Cardiovascular: denies: chest pain, palpitations Endocrine: no symptoms reported Gastrointestinal: denies: abdominal pain, nausea, diarrhea Genitourinary: denies: urgency, dysuria Musculoskeletal: denies: back pain, joint swelling, arthralgia Skin: denies: rash, lesions Neurological: denies: headache, weakness, paresthesias Psychiatric: denies: anxiety, depression Hematological/Lymphatic: denies: easy bleeding, easy bruising ED Past Medical Hx - Past Medical History Previous Medical History?: Yes Hx Hypertension: Yes Hx Congestive Heart Failure: No Hx Diabetes: Yes Hx Psychiatric Treatment: Yes Hx Asthma: No Additional medical history: Umbillical hernia, colon polyps. colaspe lung/ CIRRHOIS, pancreatitis, ETOH abuse, esophagitis, hiatal hernia - Surgical History Past Surgical History?: Yes Additional Surgical History: ankle right surgery, Hernia - Social History Smoking Status: Never Smoker Substance Use Type: None - Medications Home Medications: Home Medications Medication Instructions Recorded Confirmed Last Taken Type FLUoxetine [PROzac] 20 mg PO QAM #30 capsule 01/13/19 01/23/19 Unknown Rx OLANzapine [Zyprexa] 20 mg PO BID 01/23/19 01/23/19 Unknown History ED Physical Exam - General Limitations: No Limitations General appearance: alert, in no apparent distress - Head Head exam: Present: atraumatic, normocephalic - Eye Eye exam: Present: normal appearance - ENT ENT exam: Present: mucous membranes moist - Neck Neck exam: Present: normal inspection - Respiratory Respiratory exam: Present: normal lung sounds bilaterally. Absent: respiratory distress - Cardiovascular Cardiovascular Exam: Present: regular rate, normal rhythm. Absent: systolic murmur, diastolic murmur, rubs, gallop - GI/Abdominal GI/Abdominal exam: Present: soft, normal bowel sounds - Rectal Rectal exam: Present: deferred - Extremities Exam Extremities exam: Present: normal inspection - Back Exam Back exam: Present: normal inspection - Neurological Exam Neurological exam: Present: alert, oriented X3, CN II-XII intact. Absent: motor sensory deficit - Psychiatric Psychiatric exam: Present: suicidal ideation. Absent: homicidal ideation - Skin Skin exam: Present: warm, dry, intact, normal color. Absent: rash ED Course Vital Signs 01/29/19 14:45 Temperature 98.4 F Pulse Rate 94 H Respiratory 16 Rate Blood Pressure 98/63 O2 Sat by Pulse 95 Oximetry ED Medical Decision Making - Lab Data Result diagrams: 01/29/19 14:56 01/29/19 14:56 Lab Results 01/29/19 01/29/19 01/29/19 Range/Units 14:56 14:56 14:56 WBC 7.9 (4.5-11.0) K/mm3 RBC 4.45 (3.65-5.03) M/mm3 Hgb 11.5 L (11.8-15.2) gm/dl Hct 35.5 (35.5-45.6) % MCV 80 L (84-94) fl MCH 26 L (28-32) pg MCHC 32 (32-34) % RDW 18.8 H (13.2-15.2) % Plt Count 333 (140-440) K/mm3 Lymph % (Auto) 20.8 (13.4-35.0) % [place] % (Auto) 4.9 (0.0-7.3) % Eos % (Auto) 1.2 (0.0-4.3) % Baso % (Auto) 0.7 (0.0-1.8) % Lymph # 1.6 (1.2-5.4) K/mm3 [place] # 0.4 (0.0-0.8) K/mm3 Eos # 0.1 (0.0-0.4) K/mm3 Baso # 0.1 (0.0-0.1) K/mm3 Seg Neutrophils % 72.4 H (40.0-70.0) % Seg Neutrophils # 5.7 (1.8-7.7) K/mm3 Sodium 143 (137-145) mmol/L Potassium 4.6 (3.6-5.0) mmol/L Chloride 106.9 (98-107) mmol/L Carbon Dioxide 24 (22-30) mmol/L Anion Gap 17 mmol/L BUN 9 (9-20) mg/dL Creatinine 0.8 (0.8-1.5) mg/dL Estimated GFR > 60 ml/min BUN/Creatinine Ratio 11 % Glucose 95 (75-100) mg/dL Calcium 8.8 (8.4-10.2) mg/dL Total Bilirubin < 0.20 (0.1-1.2) mg/dL AST 26 (5-40) units/L ALT 17 (7-56) units/L Alkaline Phosphatase 76 (35-129) units/L Total Protein 7.0 (6.3-8.2) g/dL Albumin 3.8 L (3.9-5) g/dL Albumin/Globulin Ratio 1.2 % Urine Color (Yellow) Urine Turbidity (Clear) Urine pH (5.0-7.0) Ur Specific [place] (1.003-1.030) Urine Protein (Negative) mg/dL Urine Glucose (UA) (Negative) mg/dL Urine Ketones (Negative) mg/dL Urine Blood (Negative) Urine Nitrite (Negative) Urine Bilirubin (Negative) Urine Urobilinogen (<2.0) mg/dL Ur Leukocyte Esterase (Negative) Urine WBC (Auto) (0.0-6.0) /HPF Urine RBC (Auto) (0.0-6.0) /HPF Urine Opiates Screen Urine Methadone Screen Ur Barbiturates Screen Ur Phencyclidine Scrn Ur Amphetamines Screen U Benzodiazepines Scrn Urine Cocaine Screen U Marijuana (THC) Screen Drugs of Abuse Note Plasma/Serum Alcohol 0.23 H (0-0.07) % 01/29/19 01/29/19 Range/Units 16:00 16:00 WBC (4.5-11.0) K/mm3 RBC (3.65-5.03) M/mm3 Hgb (11.8-15.2) gm/dl Hct (35.5-45.6) % MCV (84-94) fl MCH (28-32) pg MCHC (32-34) % RDW (13.2-15.2) % Plt Count (140-440) K/mm3 Lymph % (Auto) (13.4-35.0) % [place] % (Auto) (0.0-7.3) % Eos % (Auto) (0.0-4.3) % Baso % (Auto) (0.0-1.8) % Lymph # (1.2-5.4) K/mm3 [place] # (0.0-0.8) K/mm3 Eos # (0.0-0.4) K/mm3 Baso # (0.0-0.1) K/mm3 Seg Neutrophils % (40.0-70.0) % Seg Neutrophils # (1.8-7.7) K/mm3 Sodium (137-145) mmol/L Potassium (3.6-5.0) mmol/L Chloride (98-107) mmol/L Carbon Dioxide (22-30) mmol/L Anion Gap mmol/L BUN (9-20) mg/dL Creatinine (0.8-1.5) mg/dL Estimated GFR ml/min BUN/Creatinine Ratio % Glucose (75-100) mg/dL Calcium (8.4-10.2) mg/dL Total Bilirubin (0.1-1.2) mg/dL AST (5-40) units/L ALT (7-56) units/L Alkaline Phosphatase (35-129) units/L Total Protein (6.3-8.2) g/dL Albumin (3.9-5) g/dL Albumin/Globulin Ratio % Urine Color Straw (Yellow) Urine Turbidity Clear (Clear) Urine pH 6.0 (5.0-7.0) Ur Specific [place] 1.005 (1.003-1.030) Urine Protein <15 mg/dl (Negative) mg/dL Urine Glucose (UA) Neg (Negative) mg/dL Urine Ketones Neg (Negative) mg/dL Urine Blood Neg (Negative) Urine Nitrite Neg (Negative) Urine Bilirubin Neg (Negative) Urine Urobilinogen < 2.0 (<2.0) mg/dL Ur Leukocyte Esterase Neg (Negative) Urine WBC (Auto) < 1.0 (0.0-6.0) /HPF Urine RBC (Auto) 2.0 (0.0-6.0) /HPF Urine Opiates Screen Presumptive negative Urine Methadone Screen Presumptive negative Ur Barbiturates Screen Presumptive negative Ur Phencyclidine Scrn Presumptive negative Ur Amphetamines Screen Presumptive negative U Benzodiazepines Scrn Presumptive negative Urine Cocaine Screen Presumptive negative U Marijuana (THC) Screen Presumptive negative Drugs of Abuse Note Disclamer Plasma/Serum Alcohol (0-0.07) % - Medical Decision Making 1013 applied Critical care attestation.: If time is entered above; I have spent that time in minutes in the direct care of this critically ill patient, excluding procedure time. ED Disposition Clinical Impression: Suicidal ideations, Alcohol abuse Disposition: DC/TX-65 PSY HOSP/PSY UNIT Is pt being admited?: No Does the pt Need Aspirin: No Condition: Stable Referrals: PRIMARY CARE, [Primary Care Provider] - 3-5 Days
[2019-01-30] MEDS ORDERED: ZOFRAN ODT PO ONE (14:50)
[2019-01-30] MEDS ORDERED: IBUPROFEN PO ONE ×2 (15:33→15:34)
[2019-01-30] MEDS ORDERED: ATIVAN PO ONE (16:38)
--- NOTE | 2019-01-30 17:04 | Consultation ---
History of Present Illness - Reason for Consult Consult date: 01/30/19 Reason for consult: psychiatric evaluation - Chief Complaint Chief complaint: "I'm suicidal and I was drinking." - History of Present Psychiatric Illness 53 year old male seen for psychiatric evaluation in the ER. He has 24 visits documented since 10/2017. He says he needs his medications. He states he is depressed, suicidal, and is hearing voices he cannot understand. His alcohol level was 0.23 and staff started CIWA. Med hx: Umbillical hernia, colon polyps. collapsed lung/ Cirrhosis, pancreatitis, esophagitis, hiatal hernia Surgical History: ankle right surgery, Hernia psych history: multiple psych hospitalizations. Medications and Allergies Allergies Allergy/AdvReac Type Severity Reaction Status Date / Time Penicillins Allergy Hives Verified 01/01/19 08:47 Home Medications Medication Instructions Recorded Confirmed Last Taken Type FLUoxetine [PROzac] 20 mg PO QAM #30 capsule 01/13/19 01/23/19 Unknown Rx OLANzapine [Zyprexa] 20 mg PO BID 01/23/19 01/23/19 Unknown History Active Meds: Active Medications Chlordiazepoxide HCl (Librium) 50 mg PO Q1H PRN PRN Reason: CIWA-Ar 8-15 Chlordiazepoxide HCl (Librium) 100 mg PO Q1H PRN PRN Reason: CIWA-Ar 16-25 Lorazepam (Ativan) 2 mg PO Q1H PRN PRN Reason: CIWA-Ar 8-15 Lorazepam (Ativan) 4 mg PO Q1H PRN PRN Reason: CIWA-Ar 16-25 Lorazepam (Ativan) 4 mg IV Q15MIN PRN PRN Reason: CIWA-Ar >25 Mental Status Exam - Vital signs Last Vital Signs Temp 98.4 F 01/30/19 13:36 Pulse 77 01/30/19 14:45 Resp 18 01/30/19 13:36 BP 144/83 01/30/19 13:36 Pulse Ox 98 01/30/19 13:36 - Exam Narrative exam: MSE: Appearance: disheveled Behavior: poor eye contact/went to sleep Speech: regular rate with and tone Mood: "depressed" Affect: congruent to mood Thought Process: limited in scope Thought Content:SI/ no gestures of HI's Motor Activity: lying in bed Cognition: A/O x3 Insight: poor Judgment: poor Results Result Diagrams: 01/29/19 14:56 01/29/19 14:56 All other labs normal. Assessment and Plan Assessment and plan: Impression: MDD with psychotic symptoms. Alcohol Use DO. (ETOH level 0.23 this visit). The patient endorses SI's. DDx: R/O Bipolar DO, R/O Alcohol Induced Mood DO, R/O Substance Induced Psychosis Recommendation/Plan: Continue 1013. CIWA monitoring Continue home meds of Prozac 20 mg PO daily and zyprexa 20mg hs for psychotic symptoms. Attempted to discuss possible metabolic side effects of Zyprexa with the patient and risk of eps/td. Dispo: The patient was referred to inpatient psy services. staffed with Dr Carlos Cobos.
[2019-01-30] MEDS: VISTARIL PO PRN (22:34)
[2019-01-31] MEDS ORDERED: PROzac PO SCH (10:00)
[2019-01-31] MEDS: VISTARIL PO PRN (12:48)
--- NOTE | 2019-01-31 13:58 | Progress Note ---
Subjective - Reason for Consult Consult date: 01/31/19 Reason for consult: Psychiatry Follow-up - Chief Complaint Chief complaint: 'I need to stop drinking" 53 y.o. AA male who presented to the ER for SI's and ETOH. This patient is known to me. Today the patient was calm during the assessment. he stated that he does not have any goals in his life at this time. He stated that "alcohol;" have taken over his life. He is adamant that he need help. He denies SI/HI's and AVH's. He denies any side effects of his medications. Mental Status Exam - Vital signs Last Vital Signs Temp 98.5 F 01/31/19 07:50 Pulse 77 01/31/19 07:50 Resp 16 01/31/19 07:50 BP 158/98 01/31/19 07:50 Pulse Ox 98 01/31/19 07:50 - Exam Narrative exam: MSE: Appearance: calm, cooperative Behavior: regular eye contact Speech: regular rate and tone Mood: "okay" Affect: congruent to mood Thought Process: circumstantial Thought Content: denies SI/HI's and AVH's Motor Activity: sitting up in the bed Cognition: A/O x 3 Insight: variable Judgment: variable Assessment and Plan Impression: MDD with psychosis. Hx of Alcohol Abuse. Today the patient was calm and cooperative during the assessment. DDX: Substance Induced Mood DO Recommendation/Plan: Continue 1013, Zyprexa 20 mg PO HS for mood, and Prozac 20 mg PO daily for depression. Discussed possible suicidality/medication induced millie with the patient reference Prozac. Discussed possible metabolic side effects of Zyprexa with the patient. He verbalized understanding for all his medications. Dispo: The patient was accepted at [facility] for inpatient psy services. Staffed with Dr Carlos Cobos.
[2019-01-31 17:04] VITALS: BP 109/70
== END 2019-01-31 19:01 ==
LOC: EEVIPCON 14:34 → ED 14:34
DX: F32.9 Major depressive disorder, single episode, unspecified (principal); F10.10 Alcohol abuse, uncomplicated; Z88.0 Allergy status to penicillin; Z98.890 Other specified postprocedural states; Z79.899 Other long term (current) drug therapy
CPT/HCPCS: 36415; 80053; 80307; 80320; 81001; 85025; 99285; G0480; Q0162; Q0177

== ENCOUNTER 2019-05-17 17:03 | Emergency (ER) | payer MEDICAID ==
--- NOTE | 2019-05-17 17:36 | Event Note ---
ED Screening Note Date of service: 05/17/19 Time: 17:33 ED Screening Note: pt states "feeling suicidal"; states voices are telling him to hurt himself and the is to plan (jump out of building). reports hx of suicide attempts in past. onset 3hrs ago. admits to not being compliant with his meds. reports his an alcoholic, last drink 2 hrs ago. This initial assessment/diagnostic orders/clinical plan/treatment(s) is/are subject to change based on patients health status, clinical progression and re- assessment by fellow clinical providers in the ED. Further treatment and workup at subsequent clinical providers discretion. Patient/guardian urged not to elope from the ED as their condition may be serious if not clinically assessed and managed. Initial orders include: labs
[2019-05-17 18:02] LABS: Basophils % (Auto) 0.3 % (0.0-1.8); Eosinophils % (Auto) 0.2 % (0.0-4.3); Hematocrit 36.2 % (35.5-45.6); Hemoglobin 11.9 gm/dl (11.8-15.2); Lymphocytes # (Auto) 1.5 K/mm3 (1.2-5.4); Lymphocytes % (Auto) 16.2 % (13.4-35.0); Mean Corpuscular HGB Conc 33 % (32-34); Mean Corpuscular Volume 86 fl (84-94); Monocytes # (Auto) 0.6 K/mm3 (0.0-0.8); Monocytes % (Auto) 6.1 % (0.0-7.3); Platelet Count 208 K/mm3 (140-440); Red Blood Count 4.21 M/mm3 (3.65-5.03); Red Cell Distribution Width 18.7 % (13.2-15.2)
[2019-05-17 18:19] LABS: BUN/Creatinine Ratio 8; Blood Urea Nitrogen 6 mg/dL (9-20); Calcium 8.9 mg/dL (8.4-10.2); Hemolysis Index 3
[2019-05-17] MEDS ORDERED: POTASSIUM CHLORIDE ER 20 MEQ TAB PO ONE (19:12)
[2019-05-17] MEDS ORDERED: THIAMINE 100 MG TAB PO ONE (19:12)
--- NOTE | 2019-05-17 19:25 | Emergency Department Report ---
<LAKSHMI NICOLE - Last Filed: 05/18/19 02:41> ED Psych HPI - General Chief Complaint: Psych Stated Complaint: SI Time Seen by Provider: 05/17/19 17:32 Source: patient Mode of arrival: Ambulatory - History of Present Illness Initial Comments: 53 yo male with EtOH abuse and frequent ER visits for same. Expresses suicidal ideation. No physical complaints reported. MD Complaint: suicidal ideation -: unknown Associated Psychiatric Symptoms: auditory hallucinations Quality: constant Improves With: none Worsens With: none Context: recent alcohol abuse, not taking psychiatric Associated Symptoms: denies other symptoms Treatments Prior to Arrival: none If Self Harm: admits thoughts of, has plan (jump in front of car) - Related Data Home Medications Medication Instructions Recorded Confirmed Last Taken OLANzapine [Zyprexa] 10 mg PO BID 01/23/19 05/17/19 Unknown traZODone 200 mg PO QHS 05/17/19 05/17/19 Unknown Previous Rx's Medication Instructions Recorded Last Taken Type FLUoxetine [PROzac] 20 mg PO QAM #30 capsule 01/13/19 Unknown Rx Allergies Allergy/AdvReac Type Severity Reaction Status Date / Time Penicillins Allergy Hives Verified 01/01/19 08:47 ED Review of Systems Comment: All other systems reviewed and negative ED Past Medical Hx - Past Medical History Hx Hypertension: Yes Hx Congestive Heart Failure: No Hx Diabetes: Yes Hx Psychiatric Treatment: Yes Hx Asthma: No Additional medical history: Umbillical hernia, colon polyps. colaspe lung/ CIRRHOIS, pancreatitis, ETOH abuse, esophagitis, hiatal hernia - Surgical History Additional Surgical History: ankle right surgery, Hernia - Social History Smoking Status: Current Every Day Smoker Substance Use Type: Alcohol, Marijuana - Medications Home Medications: Home Medications Medication Instructions Recorded Confirmed Last Taken Type FLUoxetine [PROzac] 20 mg PO QAM #30 capsule 01/13/19 05/17/19 Unknown Rx OLANzapine [Zyprexa] 10 mg PO BID 01/23/19 05/17/19 Unknown History traZODone 200 mg PO QHS 05/17/19 05/17/19 Unknown History ED Physical Exam - General Limitations: No Limitations - Other Other exam information: General: No acute distress Head: Atraumatic Eyes: normal appearance ENT: Moist mucous membranes Neck: Normal appearance, no midline tenderness Chest: Clear to auscultation bilaterally CV: Regular rate and rhythm Abdomen: Soft, normal bowel sounds, nontender, nondistended, no rebound or guarding Back: Normal inspection Extremity: Normal inspection infection, full range of motion Neuro: Alert O x 3, no facial asymmetry, speech clear, no gross motor sensory deficit Psych: Appropriate behavior. + etoh intox Skin: No rash ED Medical Decision Making - Lab Data Result diagrams: 05/17/19 17:51 05/17/19 17:51 Lab Results 05/17/19 05/17/19 05/17/19 Range/Units 17:51 17:51 17:51 WBC 9.2 (4.5-11.0) K/mm3 RBC 4.21 (3.65-5.03) M/mm3 Hgb 11.9 (11.8-15.2) gm/dl Hct 36.2 (35.5-45.6) % MCV 86 (84-94) fl MCH 28 (28-32) pg MCHC 33 (32-34) % RDW 18.7 H (13.2-15.2) % Plt Count 208 (140-440) K/mm3 Lymph % (Auto) 16.2 (13.4-35.0) % [place] % (Auto) 6.1 (0.0-7.3) % Eos % (Auto) 0.2 (0.0-4.3) % Baso % (Auto) 0.3 (0.0-1.8) % Lymph # 1.5 (1.2-5.4) K/mm3 [place] # 0.6 (0.0-0.8) K/mm3 Eos # 0.0 (0.0-0.4) K/mm3 Baso # 0.0 (0.0-0.1) K/mm3 Seg Neutrophils % 77.2 H (40.0-70.0) % Seg Neutrophils # 7.1 (1.8-7.7) K/mm3 Sodium 141 (137-145) mmol/L Potassium 3.5 L (3.6-5.0) mmol/L Chloride 103.9 (98-107) mmol/L Carbon Dioxide 21 L (22-30) mmol/L Anion Gap 20 mmol/L BUN 6 L (9-20) mg/dL Creatinine 0.8 (0.8-1.5) mg/dL Estimated GFR > 60 ml/min BUN/Creatinine Ratio 8 % Glucose 107 H (75-100) mg/dL Calcium 8.9 (8.4-10.2) mg/dL Magnesium (1.7-2.3) mg/dL Urine Color (Yellow) Urine Turbidity (Clear) Urine pH (5.0-7.0) Ur Specific [place] (1.003-1.030) Urine Protein (Negative) mg/dL Urine Glucose (UA) (Negative) mg/dL Urine Ketones (Negative) mg/dL Urine Blood (Negative) Urine Nitrite (Negative) Urine Bilirubin (Negative) Urine Urobilinogen (<2.0) mg/dL Ur Leukocyte Esterase (Negative) Urine WBC (Auto) (0.0-6.0) /HPF Urine RBC (Auto) (0.0-6.0) /HPF Urine Opiates Screen Urine Methadone Screen Ur Barbiturates Screen Ur Phencyclidine Scrn Ur Amphetamines Screen U Benzodiazepines Scrn Urine Cocaine Screen U Marijuana (THC) Screen Drugs of Abuse Note Plasma/Serum Alcohol 0.26 H (0-0.07) % 05/17/19 05/17/19 05/17/19 Range/Units 17:51 19:25 19:25 WBC (4.5-11.0) K/mm3 RBC (3.65-5.03) M/mm3 Hgb (11.8-15.2) gm/dl Hct (35.5-45.6) % MCV (84-94) fl MCH (28-32) pg MCHC (32-34) % RDW (13.2-15.2) % Plt Count (140-440) K/mm3 Lymph % (Auto) (13.4-35.0) % [place] % (Auto) (0.0-7.3) % Eos % (Auto) (0.0-4.3) % Baso % (Auto) (0.0-1.8) % Lymph # (1.2-5.4) K/mm3 [place] # (0.0-0.8) K/mm3 Eos # (0.0-0.4) K/mm3 Baso # (0.0-0.1) K/mm3 Seg Neutrophils % (40.0-70.0) % Seg Neutrophils # (1.8-7.7) K/mm3 Sodium (137-145) mmol/L Potassium (3.6-5.0) mmol/L Chloride (98-107) mmol/L Carbon Dioxide (22-30) mmol/L Anion Gap mmol/L BUN (9-20) mg/dL Creatinine (0.8-1.5) mg/dL Estimated GFR ml/min BUN/Creatinine Ratio % Glucose (75-100) mg/dL Calcium (8.4-10.2) mg/dL Magnesium 2.00 (1.7-2.3) mg/dL Urine Color Straw (Yellow) Urine Turbidity Clear (Clear) Urine pH 6.0 (5.0-7.0) Ur Specific [place] 1.008 (1.003-1.030) Urine Protein <15 mg/dl (Negative) mg/dL Urine Glucose (UA) Neg (Negative) mg/dL Urine Ketones Neg (Negative) mg/dL Urine Blood Neg (Negative) Urine Nitrite Neg (Negative) Urine Bilirubin Neg (Negative) Urine Urobilinogen < 2.0 (<2.0) mg/dL Ur Leukocyte Esterase Neg (Negative) Urine WBC (Auto) 1.0 (0.0-6.0) /HPF Urine RBC (Auto) < 1.0 (0.0-6.0) /HPF Urine Opiates Screen Presumptive negative Urine Methadone Screen Presumptive negative Ur Barbiturates Screen Presumptive negative Ur Phencyclidine Scrn Presumptive negative Ur Amphetamines Screen Presumptive negative U Benzodiazepines Scrn Presumptive negative Urine Cocaine Screen Presumptive negative U Marijuana (THC) Screen Presumptive negative Drugs of Abuse Note Disclamer Plasma/Serum Alcohol (0-0.07) % - Medical Decision Making Chronic alcoholic with recurrent ER visits for both alcohol intoxication and SI 1013 form signed Review medically cleared was alcohol drops below appropriate level for psychiatric receiving facility CIWA ordered in anticipation of withdrawal sx po potassium given thiamine and folate daily. - Differential Diagnosis si, hi, psychosis, drug/etoh intox Critical Care Time: No ED Disposition Clinical Impression: Alcohol abuse, Suicidal ideations Disposition: DC/TX-65 PSY HOSP/PSY UNIT Is pt being admited?: No Condition: Stable Referrals: LINDA FISHER MD [Primary Care Provider] - 3-5 Days Time of Disposition: 02:43 (awaiting acceptance) <QUYNH TOMPKINS - Last Filed: 05/18/19 16:07> ED Review of Systems ROS: Stated complaint: SI Other details as noted in HPI ED Course Vital Signs 05/17/19 05/17/19 05/17/19 17:11 18:29 20:20 Temperature 98.7 F 98.3 F Pulse Rate 93 H 102 H Respiratory 17 12 18 Rate Blood Pressure 109/62 Blood Pressure 109/64 [Right] O2 Sat by Pulse 95 100 96 Oximetry 05/18/19 05/18/19 05/18/19 01:00 07:00 13:00 Temperature 97.9 F 98.4 F 98.7 F Pulse Rate 96 H 106 H 94 H Respiratory 20 18 16 Rate Blood Pressure Blood Pressure 136/81 166/99 132/73 [Right] O2 Sat by Pulse 95 95 96 Oximetry ED Medical Decision Making - Lab Data Result diagrams: 05/17/19 17:51 05/17/19 17:51 - Medical Decision Making update- correction- not being dc pt waiting on acceptance. Critical care attestation.: If time is entered above; I have spent that time in minutes in the direct care of this critically ill patient, excluding procedure time. ED Disposition Does the pt Need Aspirin: No
[2019-05-17 19:47] LABS: Bilirubin,Urine NEG (Negative); Blood,Urine NEG (Negative); Color,Urine Straw (Yellow); Protein,Urine <15 mg/dL mg/dL (Negative); RBC,Urine < 1.0 /HPF (0.0-6.0); Urobilinogen,Urine < 2.0 mg/dL (<2.0)
[2019-05-17 19:48] LABS: Amphetamine Screen,Urine PRESUMPTIVE NEGATIVE; Benzodiazepines Screen,Urine PRESUMPTIVE NEGATIVE; Cannabinoid Screen,Urine PRESUMPTIVE NEGATIVE; Cocaine Screen,Urine PRESUMPTIVE NEGATIVE; Methadone Screen,Urine PRESUMPTIVE NEGATIVE; Opiate Screen,Urine PRESUMPTIVE NEGATIVE
[2019-05-17] MEDS: LORazepam 2 MG TAB PO PRN (21:18)
[2019-05-17] MEDS: FOLIC ACID 1 MG TAB PO SCH (21:18)
[2019-05-17] MEDS ORDERED: traZODone 100 MG TAB PO SCH (22:00)
[2019-05-18] MEDS: LORazepam 2 MG TAB PO PRN ×3 (00:37→10:47)
[2019-05-18] MEDS ORDERED: ACETAMINOPHEN 500 MG TAB PO ONE (09:25)
--- NOTE | 2019-05-18 09:49 | Consultation ---
History of Present Illness - Reason for Consult Consult date: 05/18/19 Reason for consult: Mental Health Evaluation Requesting physician: LAKSHMI NICOLE - Chief Complaint Chief complaint: "I am hearing voices and suicidal" - History of Present Psychiatric Illness 53 y.o. AA male who presented to the ER for SI's and AH's. This patient is known to me. Today the patient was calm during the assessment. He stated that he have been binging on alcohol, but was hearing voices prior to that. He stated that t he voices are telling him to kill himself. The patient admitted not being compliant with his medication nor going to his outpatient psy appts. He stated that his homeless and alcoholism has contributed to "issues." He denies HI's and VH's. He would not confirm or deny SI's. He denies erratic sleep and a poor appetite. He denies recreational drug use. Medications and Allergies Allergies Allergy/AdvReac Type Severity Reaction Status Date / Time Penicillins Allergy Hives Verified 01/01/19 08:47 Home Medications Medication Instructions Recorded Confirmed Last Taken Type FLUoxetine [PROzac] 20 mg PO QAM #30 capsule 01/13/19 05/17/19 Unknown Rx OLANzapine [Zyprexa] 10 mg PO BID 01/23/19 05/17/19 Unknown History traZODone 200 mg PO QHS 05/17/19 05/17/19 Unknown History Active Meds: Active Medications Fluoxetine HCl (Prozac) 20 mg PO QAM JOAN Folic Acid (Folvite) 1 mg PO QDAY [facility] Last Admin: 05/17/19 21:18 Dose: 1 mg Documented by: Lorazepam (Ativan) 2 mg PO Q1HR PRN PRN Reason: CIWA-Ar 8-15 Last Admin: 05/17/19 21:18 Dose: 2 mg Documented by: Lorazepam (Ativan) 4 mg PO Q1HR PRN PRN Reason: CIWA-Ar 16-25 Last Admin: 05/18/19 05:27 Dose: 4 mg Documented by: Thiamine HCl (Vitamin B-1) 100 mg PO DAILY JOAN Trazodone HCl (Desyrel) 200 mg PO QHS [facility] Last Admin: 05/17/19 22:53 Dose: 200 mg Documented by: Past psychiatric history - Past Medical History Past Medical History: hypertension Past Surgical History: No surgical history - past Psychiatric treatment and history psychiatric treatment history: several inpatient psy settings. Denies a fam psy hx. - Social History Social history: other (Homeless) Mental Status Exam - Vital signs Last Vital Signs Temp 98.4 F 05/18/19 07:00 Pulse 106 H 05/18/19 07:00 Resp 18 05/18/19 07:00 BP 166/99 05/18/19 07:00 Pulse Ox 95 05/18/19 07:00 - Exam Narrative exam: MSE: Appearance: disheveled Behavior: regular eye contact Speech: regular rate and tone Mood: "down" Affect: flat Thought Process: circumstantial Thought Content: denies HI's and VH's Motor Activity: ambulatory Cognition: A/O x 3 Insight: variable to fair Judgment: poor Results Result Diagrams: 05/17/19 17:51 05/17/19 17:51 Abnormal lab results 05/17/19 05/17/19 05/17/19 Range/Units 17:51 17:51 17:51 RDW 18.7 H (13.2-15.2) % Seg Neutrophils % 77.2 H (40.0-70.0) % Potassium 3.5 L (3.6-5.0) mmol/L Carbon Dioxide 21 L (22-30) mmol/L BUN 6 L (9-20) mg/dL Glucose 107 H (75-100) mg/dL Plasma/Serum Alcohol 0.26 H (0-0.07) % All other labs normal. Assessment and Plan Assessment and plan: Impression: MDD with psychosis. Alcohol Use DO. Today the patient was calm during the assessment. DDX: Alcohol Induced Mood DO Recommendation/Plan: Continue 1013. Dispo: The patient was accepted at [facility]. Staffed with Dr Carlos Cobos.
[2019-05-18] MEDS ORDERED: FOLIC ACID 1 MG TAB PO SCH (10:00)
[2019-05-18] MEDS ORDERED: FLUoxetine 20 MG CAP PO SCH (10:00)
[2019-05-18] MEDS ORDERED: THIAMINE 100 MG TAB PO SCH (10:00)
[2019-05-18] MEDS: FOLIC ACID 1 MG TAB PO SCH (10:47)
[2019-05-18 14:44] VITALS: BP 132/73
== END 2019-05-18 19:00 ==
LOC: ED 17:03
DX: F10.120 Alcohol abuse with intoxication, uncomplicated (principal); I10 Essential (primary) hypertension; E11.9 Type 2 diabetes mellitus without complications; F17.200 Nicotine dependence, unspecified, uncomplicated; F12.10 Cannabis abuse, uncomplicated; Z88.0 Allergy status to penicillin; Z79.899 Other long term (current) drug therapy
CPT/HCPCS: 36415; 80048; 80307; 80320; 81001; 83735; 85025; 99285; G0480

== ENCOUNTER 2019-05-25 02:29 | Emergency (ER) | payer MEDICAID ==
--- NOTE | 2019-05-25 04:10 | Emergency Department Report ---
ED General Adult HPI - General Chief complaint: Psych Stated complaint: MH EVALUATION Time Seen by Provider: 05/25/19 03:59 Source: patient Mode of arrival: Ambulatory Limitations: No Limitations - History of Present Illness Initial comments: 53-year-old male with a history of alcohol abuse since with a complaint of feeling suicidal. Patient states his plan is to just front of a train or a bus. Patient was recently evaluated 05/18/2019 and was transferred for continued inpatient treatment to [facility]. Patient states that he left prior to co mpleting his treatment at [facility]. Patient denies any homicidal ideation. Patient denies any active hallucinations. Patient states that his last use of alcohol was 0100 and he is concerned that he may be going through withdrawals currently. - Related Data Home Medications Medication Instructions Recorded Confirmed Last Taken OLANzapine [Zyprexa] 10 mg PO BID 01/23/19 05/25/19 Unknown traZODone 200 mg PO QHS 05/17/19 05/25/19 Unknown Previous Rx's Medication Instructions Recorded Last Taken Type FLUoxetine [PROzac] 20 mg PO QAM #30 capsule 01/13/19 Unknown Rx Allergies Allergy/AdvReac Type Severity Reaction Status Date / Time Penicillins Allergy Hives Verified 01/01/19 08:47 ED Review of Systems ROS: Stated complaint: MH EVALUATION Other details as noted in HPI Constitutional: denies: chills, fever Eyes: denies: eye pain, eye discharge, vision change ENT: denies: ear pain, throat pain Respiratory: denies: cough, shortness of breath, wheezing Cardiovascular: denies: chest pain, palpitations Endocrine: no symptoms reported Gastrointestinal: denies: abdominal pain, nausea, diarrhea Genitourinary: denies: urgency, dysuria Musculoskeletal: denies: back pain, joint swelling, arthralgia Skin: denies: rash, lesions Neurological: denies: headache, weakness, paresthesias Psychiatric: suicidal thoughts Hematological/Lymphatic: denies: easy bleeding, easy bruising ED Past Medical Hx - Past Medical History Hx Hypertension: Yes Hx Congestive Heart Failure: No Hx Diabetes: Yes Hx Psychiatric Treatment: Yes Hx Asthma: No Additional medical history: Umbillical hernia, colon polyps. colaspe lung/ CIRRHOIS, pancreatitis, ETOH abuse, esophagitis, hiatal hernia - Surgical History Additional Surgical History: ankle right surgery, Hernia - Social History Smoking Status: Current Every Day Smoker Substance Use Type: Alcohol - Medications Home Medications: Home Medications Medication Instructions Recorded Confirmed Last Taken Type FLUoxetine [PROzac] 20 mg PO QAM #30 capsule 01/13/19 05/25/19 Unknown Rx OLANzapine [Zyprexa] 10 mg PO BID 01/23/19 05/25/19 Unknown History traZODone 200 mg PO QHS 05/17/19 05/25/19 Unknown History ED Physical Exam - General Limitations: No Limitations General appearance: alert, in no apparent distress, other (dishelved) - Head Head exam: Present: atraumatic, normocephalic - Eye Eye exam: Present: normal appearance - ENT ENT exam: Present: mucous membranes moist - Neck Neck exam: Present: normal inspection - Respiratory Respiratory exam: Present: normal lung sounds bilaterally. Absent: respiratory distress - Cardiovascular Cardiovascular Exam: Present: regular rate, normal rhythm. Absent: systolic murmur, diastolic murmur, rubs, gallop - GI/Abdominal GI/Abdominal exam: Present: soft, normal bowel sounds - Rectal Rectal exam: Present: deferred - Extremities Exam Extremities exam: Present: normal inspection - Back Exam Back exam: Present: normal inspection - Neurological Exam Neurological exam: Present: alert, oriented X3 - Psychiatric Psychiatric exam: Present: normal affect, normal mood - Skin Skin exam: Present: warm, dry, intact, normal color. Absent: rash ED Course Vital Signs 05/25/19 02:35 Temperature 98 F Pulse Rate 96 H Respiratory 18 Rate Blood Pressure 117/80 O2 Sat by Pulse 97 Oximetry ED Medical Decision Making - Lab Data Result diagrams: 05/25/19 04:31 05/25/19 04:31 - Medical Decision Making Patient is medically clear. Patient will be re evaluated later today. Patient was initally seen by behavioral health team who wants to reassess patient after he lester up. - Differential Diagnosis Acute Psychosis; Dehydration; Electrolyte Abnormality; Anemia Critical care attestation.: If time is entered above; I have spent that time in minutes in the direct care of this critically ill patient, excluding procedure time. ED Disposition Clinical Impression: Suicidal ideations, Alcohol abuse Is pt being admited?: No Condition: Stable Time of Disposition: 05:48
[2019-05-25] MEDS ORDERED: LORazepam 1 MG TAB PO ONE (04:32)
[2019-05-25 05:05] LABS: Basophils % (Auto) 0.5 % (0.0-1.8); Eosinophils % (Auto) 0.5 % (0.0-4.3); Hematocrit 37.5 % (35.5-45.6); Hemoglobin 12.3 gm/dl (11.8-15.2); Lymphocytes # (Auto) 0.9 K/mm3 (1.2-5.4); Lymphocytes % (Auto) 10.5 % (13.4-35.0); Mean Corpuscular HGB Conc 33 % (32-34); Mean Corpuscular Volume 88 fl (84-94); Monocytes # (Auto) 0.5 K/mm3 (0.0-0.8); Platelet Count 222 K/mm3 (140-440); Red Blood Count 4.27 M/mm3 (3.65-5.03)
[2019-05-25 05:15] LABS: Amphetamine Screen,Urine PRESUMPTIVE NEGATIVE; Benzodiazepines Screen,Urine PRESUMPTIVE NEGATIVE; Cannabinoid Screen,Urine PRESUMPTIVE NEGATIVE; Cocaine Screen,Urine PRESUMPTIVE NEGATIVE; Methadone Screen,Urine PRESUMPTIVE NEGATIVE
[2019-05-25 05:20] LABS: Alanine Aminotransferase 74 units/L (7-56); BUN/Creatinine Ratio 11; Blood Urea Nitrogen 8 mg/dL (9-20); Hemolysis Index 27
[2019-05-25 05:36] LABS: Opiate Screen,Urine PRESUMPTIVE POSITIVE
--- NOTE | 2019-05-25 05:37 | Consultation ---
History of Present Illness - Reason for Consult Consult date: 05/25/19 Reason for consult: Initial Psychiatric Evaluation - Chief Complaint Chief complaint: "suicidal" - History of Present Psychiatric Illness Patient is a 53 year old male that presents to the emergency room with suicidal ideations and alcohol abuse. Patient is known to the provider. He has a PPHx of schizophrenia and major depressive disorder. Today the patient is calm and cooperative. He has had multiple similar hospital admissions within the last year. Patient was last hospitalized at [facility] on 05-17-2019. Patient was released from psychiatric inpatient care on 05-22-19. Since his released on Thursday patient has been drinking alcohol and noncompliant with medication. Patient reports that he is suicidal with plan to get hit by a train/truck due to financial difficulties. Patient reports that he is homeless and needs to find another payee. He reports decrease energy, decrease sleep, appropriate appetite. Also patient endorses auditory hallucinations telling him to hurt himself and paranoid delusions- believes that others are out to harm. Denies VH's Current Psychiatric Medication: Prozac 20mg po QAM, Zyprexa 10mg po BID, and Trazodone 200mg po QHS. Last compliant 05/22/19. Past Psychiatric History: Schizophrenia ( 2017), Alcohol Use Disorder ( Age 16); More than 15 previous inpatient psychiatric hospitalizations; no outpatient psychiatrist; no previous suicide attempts. History of Drug/Alcohol Abuse: Alcohol- daily, 2 6 ppd daily, last drink- 05/24/19; first use- age 16. UDS positive for opiates. Patient denies. History of Trauma/Abuse: Patient denies trauma, sexual/physical/mental abuse. Family History of Psychiatric Illness/Substance Abuse: Patient denies. Medications and Allergies Allergies Allergy/AdvReac Type Severity Reaction Status Date / Time Penicillins Allergy Hives Verified 01/01/19 08:47 Home Medications Medication Instructions Recorded Confirmed Last Taken Type FLUoxetine [PROzac] 20 mg PO QAM #30 capsule 01/13/19 05/25/19 Unknown Rx OLANzapine [Zyprexa] 10 mg PO BID 01/23/19 05/25/19 Unknown History traZODone 200 mg PO QHS 05/17/19 05/25/19 Unknown History Mental Status Exam - Vital signs Last Vital Signs Temp 98 F 05/25/19 02:35 Pulse 96 H 05/25/19 02:35 Resp 18 05/25/19 02:35 BP 117/80 05/25/19 02:35 Pulse Ox 97 05/25/19 02:35 - Exam Narrative exam: Mental Status Exam Appearance: disheveled Behavior: poor eye contact, guarded Speech: regular rate with and tone Mood: "suicidal and tired"; depressed Affect: congruent to mood Thought Process: impoverished, circumstantial Thought Content: no gestures VH's and HI's; + SI's and AH's Cognition: A/O x 3 Insight: poor Judgment: poor Results Result Diagrams: 05/25/19 04:31 05/25/19 04:31 Abnormal lab results 05/25/19 05/25/19 05/25/19 Range/Units 04:31 04:31 04:31 RDW 19.0 H (13.2-15.2) % Lymph % (Auto) 10.5 L (13.4-35.0) % Lymph # 0.9 L (1.2-5.4) K/mm3 Seg Neutrophils % 82.5 H (40.0-70.0) % BUN 8 L (9-20) mg/dL Creatinine 0.7 L (0.8-1.5) mg/dL Glucose 117 H (75-100) mg/dL ALT 74 H (7-56) units/L Salicylates < 0.3 L (2.8-20.0) mg/dL Acetaminophen (10.0-30.0) ug/mL 05/25/19 Range/Units 04:31 RDW (13.2-15.2) % Lymph % (Auto) (13.4-35.0) % Lymph # (1.2-5.4) K/mm3 Seg Neutrophils % (40.0-70.0) % BUN (9-20) mg/dL Creatinine (0.8-1.5) mg/dL Glucose (75-100) mg/dL ALT (7-56) units/L Salicylates (2.8-20.0) mg/dL Acetaminophen < 5.0 L (10.0-30.0) ug/mL All other labs normal. Assessment and Plan Assessment and plan: Impression: PPHx Schizophrenia and MDD. Alcohol Intoxication. Today the patient is calm and cooperative during the assessment. He endorses SI's with plan and command auditory hallucinations. UDS positive for opiates. Recommendation/Plan: 1. Continue 1013. 2. Restart home medications: Prozac 20mg po QAM depression/anxiety, Zyprexa 20mg po QHS mood/psychosis, Trazodone 200mg po QHS. Discussed metabolic side effects and possible increase suicidality/ medication induced millie. Patient verbalizes understanding. 3. Recommend [facility] protocol. Disposition: Will reassess in 24 hours. Will staff with Dr. Carlos Cobos.
[2019-05-25] MEDS: FLUoxetine 20 MG CAP PO SCH (10:35)
[2019-05-25] MEDS: traZODone 100 MG TAB PO SCH (21:56)
[2019-05-26] MEDS: FLUoxetine 20 MG CAP PO SCH (09:54)
--- NOTE | 2019-05-26 13:33 | Progress Note ---
Subjective - Reason for Consult Consult date: 05/26/19 Reason for consult: Psychiatric Follow-up Evaluation - Chief Complaint Chief complaint: " A little better" Patient is a 53 year old male that presents to the emergency room with suicidal ideations and alcohol abuse. Patient is known to the provider. He has a PPHx of schizophrenia and major depressive disorder. Today the patient is calm and cooperative. He states " the medicine is starting to work. I'm still hearing the voices but they're getting better." Patient reports paranoid delusions and intermittent AH's telling him to hurt himself. He reports appropriate sleep and appetite. He denies SI/HI's and VH's. Mental Status Exam - Vital signs Last Vital Signs Temp 98.6 F 05/26/19 08:32 Pulse 78 05/26/19 08:32 Resp 20 05/25/19 20:43 BP 133/87 05/26/19 08:32 Pulse Ox 97 05/26/19 08:32 - Exam Narrative exam: Mental Status Exam Appearance: disheveled Behavior: poor eye contact, guarded Speech: regular rate with and tone Mood: depressed, anxious Affect: congruent to mood Thought Process: impoverished, circumstantial Thought Content: denies SI/HI's and VH's; + and AH's and delusions Cognition: A/O x 3 Insight: poor Judgment: variable Assessment and Plan Impression: PPHx Schizophrenia and MDD. Alcohol Intoxication. Today the patient is calm and cooperative during the assessment. He endorses command auditory hallucinations and paranoid delusions. UDS positive for opiates. He denies SI/HI's and VH's. Recommendation/Plan: 1. Continue 1013. 2. Continue Prozac 20mg po QAM depression/anxiety, Zyprexa 20mg po QHS mood/psychosis, Trazodone 200mg po QHS. Discussed metabolic side effects and possible increase suicidality/ medication induced millie. Patient verbalizes understanding. 3. Recommend [facility] protocol. Disposition: Will reassess in 24 hours. Will staff with Dr. Carlos Cobos.
[2019-05-26] MEDS: traZODone 100 MG TAB PO SCH (22:31)
--- NOTE | 2019-05-27 07:13 | Progress Note ---
Subjective - Reason for Consult Consult date: 05/27/19 Reason for consult: Psychiatric Follow-up Evaluation - Chief Complaint Chief complaint: " I'm doing better." Patient is a 53 year old male that presents to the emergency room with suicidal ideations and alcohol abuse. Patient is known to the provider. He has a PPHx of schizophrenia and major depressive disorder. Today the patient is calm and cooperative. He states " I'm doing better because I was able to sleep." He reports appropriate sleep and appetite. He continues to endorse paranoid delusions and auditory hallucination - " they tell me to hurt myself. "- per patient they are less in frequency and intensity. Patient believes that the medication is partially effective. He denies any side effects from medications. He denies SI/HI's and VH's. Mental Status Exam - Vital signs Last Vital Signs Temp 98.8 F 05/27/19 01:00 Pulse 78 05/27/19 01:00 Resp 18 05/27/19 01:00 BP 121/71 05/27/19 01:00 Pulse Ox 97 05/27/19 01:00 - Exam Narrative exam: Mental Status Exam Appearance: disheveled Behavior: poor eye contact, guarded Speech: regular rate with and tone Mood: depressed, anxious -less Affect: congruent to mood Thought Process: impoverished, circumstantial Thought Content: denies SI/HI's and VH's; + and AH's and delusions (paranoid) Cognition: A/O x 3 Insight: poor Judgment: variable Assessment and Plan Impression: PPHx Schizophrenia and MDD. Alcohol Intoxication. Today the patient is calm and cooperative during the assessment. He endorses command auditory hallucinations and paranoid delusions. UDS positive for opiates. He denies SI/HI's and VH's. Recommendation/Plan: 1. Continue 1013. 2. Continue Prozac 20mg po QAM depression/anxiety, Zyprexa 20mg po QHS mood/psychosis, Trazodone 200mg po QHS. Discussed metabolic side effects and possible increase suicidality/ medication induced millie. Patient verbalizes understanding. 3. Recommend [facility] protocol. Disposition: Will reassess in 24 hours. Will re-evaluate 1013 in 24 hours for necessity. Will staff with Dr. Carlos Cobos.
[2019-05-27] MEDS: FLUoxetine 20 MG CAP PO SCH (11:00)
[2019-05-27] MEDS: traZODone 100 MG TAB PO SCH (22:11)
[2019-05-28] MEDS: FLUoxetine 20 MG CAP PO SCH (10:24)
[2019-05-28 20:32] VITALS: BP 143/90
--- NOTE | 2019-05-28 21:45 | Progress Note ---
Subjective - Reason for Consult Consult date: 05/28/19 Reason for consult: follow up - Chief Complaint Chief complaint: " What about me?" Patient is a 53 year old male that presents to the emergency room with suicidal ideations and alcohol abuse. Patient is known to the provider. He has a PPHx of schizophrenia and major depressive disorder. Today the patient is calm and cooperative. He reports AH, non command. Patient believes that the medication is partially effective. He denies any side effects from medications. He denies SI/HI's and VH's. Mental Status Exam - Vital signs Last Vital Signs Temp 98.5 F 05/28/19 20:30 Pulse 98 H 05/28/19 20:30 Resp 18 05/28/19 20:30 BP 143/90 05/28/19 20:30 Pulse Ox 97 05/28/19 20:30 Assessment and Plan Mental Status Exam Appearance: disheveled Behavior: poor eye contact, guarded Speech: regular rate with and tone Mood: depressed, anxious -less Affect: congruent to mood Thought Process: impoverished, circumstantial Thought Content: denies SI/HI's and VH's; + and AH's and delusions (paranoid) Cognition: A/O x 3 Insight: poor Judgment: variable Assessment and Plan Impression: PPHx Schizophrenia and MDD. Alcohol Intoxication. Today the patient is calm and cooperative during the assessment. He endorses command auditory hallucinations and paranoid delusions. UDS positive for opiates. He denies SI/HI's and VH's. Recommendation/Plan: 1. Continue 1013. 2. Continue Prozac 20mg po QAM depression/anxiety, Zyprexa 20mg po QHS mood/psychosis, Trazodone 200mg po QHS. Discussed metabolic side effects and possible increase suicidality/ medication induced millie. Patient verbalizes understanding. 3. Recommend [facility] protocol. Disposition: inpatient psychiatric treatment Will staff with Dr. Carlos Cobos.
[2019-05-28] MEDS: traZODone 100 MG TAB PO SCH (21:56)
== END 2019-05-28 23:11 ==
LOC: ED 02:29 → EEVIPCON 02:29 → ED 05-28 23:11
DX: F20.9 Schizophrenia, unspecified (principal); F10.129 Alcohol abuse with intoxication, unspecified; F32.9 Major depressive disorder, single episode, unspecified; I10 Essential (primary) hypertension; E11.9 Type 2 diabetes mellitus without complications; F17.200 Nicotine dependence, unspecified, uncomplicated
CPT/HCPCS: 36415; 80053; 80307; 80320; 82962; 85025; G0480

== ENCOUNTER 2019-06-07 20:47 | Inpatient (IN) | payer MEDICAID ==
--- NOTE | 2019-06-07 21:22 | Event Note ---
ED Screening Note Date of service: 06/07/19 Time: 21:08 ED Screening Note: This is a 53 y.o. M. that presents to the ER with suicidal thoughts and hallucinations. Patient states he stopped taking medication several months. This initial assessment/diagnostic orders/clinical plan/treatment(s) is/are subject to change based on patients health status, clinical progression and re- assessment by fellow clinical providers in the ED. Further treatment and workup at subsequent clinical providers discretion. Patient/guardian urged not to elope from the ED as their condition may be serious if not clinically assessed and managed. Initial orders include: Labs
[2019-06-07 22:16] LABS: Basophils # (Auto) 0.1 K/mm3 (0.0-0.1); Basophils % (Auto) 0.6 % (0.0-1.8); Eosinophils % (Auto) 0.3 % (0.0-4.3); Hemoglobin 11.6 gm/dl (11.8-15.2); Lymphocytes # (Auto) 2.6 K/mm3 (1.2-5.4); Lymphocytes % (Auto) 26.5 % (13.4-35.0); Mean Corpuscular HGB Conc 32 % (32-34); Mean Corpuscular Volume 90 fl (84-94); Monocytes # (Auto) 0.7 K/mm3 (0.0-0.8); Monocytes % (Auto) 7.2 % (0.0-7.3); Platelet Count 312 K/mm3 (140-440); Red Blood Count 4.02 M/mm3 (3.65-5.03); Red Cell Distribution Width 17.4 % (13.2-15.2)
[2019-06-07] MEDS ORDERED: LORazepam 2 MG/ML VIAL IV PRN ×2 (22:20)
[2019-06-07] MEDS ORDERED: SODIUM CHLORIDE 0.9% 1000 ML 1,000 ML IV ONE ×2 (22:20→23:51)
--- NOTE | 2019-06-07 22:26 | Emergency Department Report ---
ED Psych HPI - General Chief Complaint: Psych Stated Complaint: MH Time Seen by Provider: 06/07/19 21:08 Source: patient Mode of arrival: Ambulatory - History of Present Illness Initial Comments: Patient is 53 years old male with history of schizophrenia and chronic alcohol abuse. Patient presented to the ER stating that he is hearing voices asking him to kill himself. Patient does have a plan. Patient stated that he is planning to blow of his head with a gun. Patient stated that he has been drinking daily to help with the auditory hallucination. He stated that he did not drink anything. Patient stated that he has history of DT's before. Denied any homicidal ideation. [facility] protocol initiated. MD Complaint: suicidal ideation Associated Psychiatric Symptoms: suicidal ideation, racing thoughts, auditory hallucinations History of same: Yes Quality: constant Context: not taking psychiatric Associated Symptoms: denies other symptoms Treatments Prior to Arrival: none If Self Harm: admits thoughts of, has plan - Related Data Home Medications Medication Instructions Recorded Confirmed Last Taken OLANzapine [Zyprexa] 10 mg PO BID 01/23/19 06/09/19 Unknown traZODone 200 mg PO QHS 05/17/19 06/09/19 Unknown Previous Rx's Medication Instructions Recorded Last Taken Type FLUoxetine [PROzac] 20 mg PO QAM #30 capsule 01/13/19 Unknown Rx Folic Acid [Folvite] 1 mg PO DAILY #30 tablet 06/12/19 Unknown Rx Multivitamin Tab [Multiple Vitamin 1 each PO QDAY #30 tablet 06/12/19 Unknown Rx TAB (Theragran)] Thiamine [Vitamin B-1] 100 mg PO QDAY #30 tablet 06/12/19 Unknown Rx levoFLOXacin [Levaquin TAB] 750 mg PO Q24HR #3 tablet 06/12/19 Unknown Rx Allergies Allergy/AdvReac Type Severity Reaction Status Date / Time Penicillins Allergy Hives Verified 01/01/19 08:47 ED Review of Systems ROS: Stated complaint: MH Other details as noted in HPI Comment: All other systems reviewed and negative Constitutional: denies: chills, fever Respiratory: denies: cough, shortness of breath Cardiovascular: palpitations. denies: chest pain Gastrointestinal: denies: abdominal pain, nausea, vomiting Musculoskeletal: denies: back pain Neurological: denies: headache ED Past Medical Hx - Past Medical History Previous Medical History?: Yes Hx Hypertension: Yes Hx Congestive Heart Failure: No Hx Diabetes: Yes Hx Psychiatric Treatment: Yes Hx Asthma: No Additional medical history: Umbillical hernia, colon polyps. colaspe lung/ CIRRHOIS, pancreatitis, ETOH abuse, esophagitis, hiatal hernia - Surgical History Past Surgical History?: Yes Additional Surgical History: ankle right surgery, Hernia - Social History Smoking Status: Current Every Day Smoker Substance Use Type: Alcohol - Medications Home Medications: Home Medications Medication Instructions Recorded Confirmed Last Taken Type FLUoxetine [PROzac] 20 mg PO QAM #30 capsule 01/13/19 06/09/19 Unknown Rx OLANzapine [Zyprexa] 10 mg PO BID 01/23/19 06/09/19 Unknown History traZODone 200 mg PO QHS 05/17/19 06/09/19 Unknown History Folic Acid [Folvite] 1 mg PO DAILY #30 tablet 06/12/19 Unknown Rx Multivitamin Tab [Multiple Vitamin 1 each PO QDAY #30 tablet 06/12/19 Unknown Rx TAB (Theragran)] Thiamine [Vitamin B-1] 100 mg PO QDAY #30 tablet 06/12/19 Unknown Rx levoFLOXacin [Levaquin TAB] 750 mg PO Q24HR #3 tablet 06/12/19 Unknown Rx ED Physical Exam - General Limitations: No Limitations General appearance: alert, in no apparent distress, anxious - Head Head exam: Present: atraumatic, normocephalic, normal inspection - Eye Eye exam: Present: normal appearance - ENT ENT exam: Present: normal exam, normal orophraynx, mucous membranes moist - Neck Neck exam: Present: normal inspection - Respiratory Respiratory exam: Present: normal lung sounds bilaterally - Cardiovascular Cardiovascular Exam: Present: tachycardia - GI/Abdominal GI/Abdominal exam: Present: soft, normal bowel sounds. Absent: distended, tenderness, guarding, rebound, rigid - Extremities Exam Extremities exam: Present: normal inspection, full ROM, normal capillary refill. Absent: tenderness, pedal edema, joint swelling, calf tenderness - Neurological Exam Neurological exam: Present: alert, oriented X3, CN II-XII intact - Psychiatric Psychiatric exam: Present: suicidal ideation. Absent: depressed, agitated, manic, homicidal ideation - Skin Skin exam: Present: warm, intact, normal color ED Course Vital Signs 06/07/19 06/07/19 06/08/19 21:01 23:20 02:00 Temperature 97.9 F 98.4 F 98.4 F Pulse Rate 131 H 107 H 118 H Respiratory 20 18 20 Rate Blood Pressure 93/53 Blood Pressure 89/45 104/72 [Left] O2 Sat by Pulse 93 95 92 Oximetry 06/08/19 06/08/19 06/08/19 04:35 09:38 10:00 Temperature Pulse Rate 112 H 130 H 124 H Respiratory 18 25 H Rate Blood Pressure Blood Pressure 115/59 98/53 96/64 [Left] O2 Sat by Pulse 93 89 Oximetry 06/08/19 06/08/19 06/08/19 11:00 12:44 13:00 Temperature Pulse Rate 118 H 116 H 116 H Respiratory Rate Blood Pressure Blood Pressure 114/66 120/71 108/62 [Left] O2 Sat by Pulse 99 Oximetry 06/08/19 06/08/19 06/08/19 15:00 17:00 20:01 Temperature 98.7 F Pulse Rate 119 H 123 H 118 H Respiratory Rate Blood Pressure Blood Pressure 120/65 127/78 [Left] O2 Sat by Pulse Oximetry 06/08/19 20:04 Temperature Pulse Rate 118 H Respiratory 20 Rate Blood Pressure Blood Pressure 118/58 [Left] O2 Sat by Pulse 95 Oximetry ED Medical Decision Making - Lab Data Result diagrams: 06/12/19 05:26 06/12/19 05:26 Critical care attestation.: If time is entered above; I have spent that time in minutes in the direct care of this critically ill patient, excluding procedure time. ED Disposition Clinical Impression: Alcohol withdrawal, Suicidal ideations, Alcohol abuse Pneumonia Qualifiers: Pneumonia type: due to unspecified organism Laterality: right Lung location: lower lobe of lung Qualified Code(s): J18.9 - Pneumonia, unspecified organism Disposition: OP ADMIT IP TO THIS HOSP Is pt being admited?: Yes Condition: Fair
[2019-06-07 22:36] LABS: BUN/Creatinine Ratio 10; Blood Urea Nitrogen 12 mg/dL (9-20); Hemolysis Index 3
[2019-06-07 22:54] LABS: Alanine Aminotransferase 55 units/L (7-56); Albumin 4.2 g/dL (3.9-5); Bilirubin,Direct < 0.2 mg/dL (0-0.2)
[2019-06-08] MEDS ORDERED: MEROPENEM/NS 1 GRAM/100 ML 1 GRAM/100 ML BAG IV ONE (10:14)
--- NOTE | 2019-06-08 10:15 | XRay Report ---
CHEST 1 VIEW INDICATION: hypoxia. COMPARISON: 01/01/2019 FINDINGS: Support devices: None. Heart: Within normal limits. Lungs/Pleura: Dense consolidation has developed in the inferior right lung. The left lung remains coy ar. Additional findings: None. IMPRESSION: Right lung pneumonia. Signer Name: Alexis Quinn Jr, MD Signed: 06/08/2019 10:11 AM Workstation Name: [id number]
[2019-06-08] MEDS ORDERED: SODIUM CHLORIDE 0.9% 1000 ML 1,000 ML IV ONE (10:19)
--- NOTE | 2019-06-08 10:32 | Emergency Department Report ---
Blank Doc - Documentation Documentation: I was asked to evaluate this patient by the nurse who found him to have a pulse oximetry in the 80s. I was unaware of this patient's status prior. He had been seen during the evening. I'm not exactly sure what the plan was. I do note that he was treated with IV fluids and Ativan for alcohol withdrawal. In addition he appears to then somewhat tachycardic with 1 blood pressure at 89 systolic. The patient was found to be lethargic and unable to provide very much history. He is satting at 93% on 2 L. His heart rate is about 125 and his blood pressure is about 95 systolic. In addition, on exam: Gen. appearance: Lethargic and not well HEENT oral mucosa is a bit dry, no sclera icterus Neck no adenopathy no meningismus no tenderness Respiratory diffuse rhonchi bilaterally Cardiovascular tachycardic without murmur Gastrointestinal the upper quadrants of the abdomen are bilaterally tender. There are no gross peritoneal signs. Musculoskeletal no deformity Neurological exam nonfocal Chest x-ray: There is a large right lower and right middle lobe infiltrate Impression Sepsis Pneumonia right-sided Acute encephalopathy Alcohol withdrawal Plan Triple antibiotic coverage in an alcoholic with a large pneumonia and sepsis. Penicillin allergic substituted meropenem, Levaquin and vancomycin. Additional fluids. Blood cultures and CT of the abdomen. Admit to MICU by Dr. Taylor. He is en route. Critical care time with this patient is 35 minutes.
[2019-06-08] MEDS ORDERED: VANCOMYCIN PHARMACY TO DOSE IV SCH (11:00)
[2019-06-08 11:39] LABS: INR 1.05 (0.87-1.13)
[2019-06-08 12:14] LABS: Amphetamine Screen,Urine PRESUMPTIVE NEGATIVE; Benzodiazepines Screen,Urine PRESUMPTIVE NEGATIVE; Cocaine Screen,Urine PRESUMPTIVE NEGATIVE; Opiate Screen,Urine PRESUMPTIVE NEGATIVE
[2019-06-08 12:27] LABS: Cannabinoid Screen,Urine PRESUMPTIVE POSITIVE; Methadone Screen,Urine PRESUMPTIVE POSITIVE
[2019-06-08 12:33] LABS: Bilirubin,Urine NEG (Negative); Blood,Urine NEG (Negative); Color,Urine Yellow (Yellow); Mucus,Urine FEW /HPF; Protein,Urine <15 mg/dL mg/dL (Negative); Urobilinogen,Urine < 2.0 mg/dL (<2.0)
--- NOTE | 2019-06-08 14:06 | Cat Scan Report ---
CT HEAD WITHOUT CONTRAST INDICATION / CLINICAL INFORMATION: AMS. TECHNIQUE: Axial imaging performed from the skull apex through the skull base without the use of cont rast. Sagittal and coronal reformatted images. All CT scans at this location are performed using CT dose reduction for ALARA by means of automated exposure control. COMPARISON: 12/14/2018 FINDINGS: CEREBRAL PARENCHYMA: No significant abnormality. No acute territorial infarct. HEMORRHAGE: None. EXTRA-AXIAL SPACES: Normal in size and morphology for the patient's age. VENTRICULAR SYSTEM: Normal in size and morphology for the patient's age. MIDLINE SHIFT OR HERNIATION: None. CEREBELLUM / BRAINSTEM: No significant abnormality. CALVARIUM: No significant abnormality. Chronic bilateral nasal bone fractures are noted ORBITS: Normal as visualized. PARANASAL SINUSES / MASTOID AIR CELLS: Normal as visualized. SOFT TISSUES of HEAD: No significant abnormality. ADDITIONAL FINDINGS: None. IMPRESSION: No acute intracranial abnormality. Signer Name: Alexis Quinn Jr, MD Signed: 06/08/2019 2:02 PM Workstation Name: [id number]
[2019-06-08] MEDS: VANCOMYCIN 1,500 MG in SODIUM CHLORIDE 0.9% 500 ML 500 ML IV SCH (14:09)
--- NOTE | 2019-06-08 14:13 | Consultation ---
History of Present Illness - Reason for Consult Consult date: 06/08/19 Reason for consult: Initial Psychiatric Evaluation - Chief Complaint Chief complaint: " I was suicidal" - History of Present Psychiatric Illness Patient is a 53 year old male that presents to the emergency room with suicidal ideations and alcohol abuse. Patient is known to the provider. He has a PPHx of schizophrenia and major depressive disorder. Today the patient is calm and cooperative. He has had multiple similar hospital admissions within the last year. Patient was last admitted at [facility] on 05-25-2019. Patient reports that he is suicidal with plan to get hit by a truck due to financial difficulties. Patient reports that he is homeless and still needs another payee. He reports decrease energy, sleep, and appetite. Patient denies HI's, A/VH's, and delusions. Current Psychiatric Medication: Prozac 20mg po QAM, Zyprexa 10mg po BID, and Trazodone 200mg po QHS. Last compliant " about a week ago." Past Psychiatric History: Schizophrenia ( 2017), Alcohol Use Disorder ( Age 16); More than 15 previous inpatient psychiatric hospitalizations; no outpatient psychiatrist; no previous suicide attempts. History of Drug/Alcohol Abuse: Alcohol- daily, 2 6 ppd daily, last drink- 06/07/19; first use- age 16. UDS positive for methadone, marijuana, and ba rbiturates. History of Trauma/Abuse: Patient denies trauma, sexual/physical/mental abuse. Family History of Psychiatric Illness/Substance Abuse: Patient denies. Medications and Allergies Allergies Allergy/AdvReac Type Severity Reaction Status Date / Time Penicillins Allergy Hives Verified 01/01/19 08:47 Home Medications Medication Instructions Recorded Confirmed Last Taken Type FLUoxetine [PROzac] 20 mg PO QAM #30 capsule 01/13/19 05/25/19 Unknown Rx OLANzapine [Zyprexa] 10 mg PO BID 01/23/19 05/25/19 Unknown History traZODone 200 mg PO QHS 05/17/19 05/25/19 Unknown History Active Meds: Active Medications Vancomycin HCl 1,500 mg/ (Sodium Chloride) 530 mls @ 265 mls/hr IV Q12H JOAN Last Admin: 06/08/19 14:09 Dose: 265 mls/hr Documented by: Dextrose/Sodium Chloride (D5/0.45ns) 1,000 mls @ 75 mls/hr IV DIRECT JOAN Lorazepam (Ativan) 2 mg IV Q1H PRN PRN Reason: CIWA-Ar 8-15 Lorazepam (Ativan) 4 mg IV Q1H PRN PRN Reason: CIWA-Ar 16-25 Lorazepam (Ativan) 4 mg IV Q15MIN PRN PRN Reason: CIWA-Ar >25 Mental Status Exam - Vital signs Last Vital Signs Temp 98.4 F 06/08/19 02:00 Pulse 116 H 06/08/19 13:00 Resp 25 H 06/08/19 09:38 BP 108/62 06/08/19 13:00 Pulse Ox 99 06/08/19 11:00 - Exam Narrative exam: Mental Status Exam Appearance: disheveled Behavior: intermittent eye contact, guarded Speech: regular rate with and tone Mood: depressed Affect: congruent to mood Thought Process: impoverished, circumstantial Thought Content: A/VH's and HI's; + SI's Cognition: A/O x 3 Insight: poor Judgment: poor Results Result Diagrams: 06/07/19 21:55 06/07/19 21:55 Abnormal lab results 06/07/19 06/07/19 06/07/19 Range/Units 21:55 21:55 21:55 Hgb (11.8-15.2) gm/dl RDW (13.2-15.2) % APTT (24.2-36.6) Sec. POC ABG pO2 (80-105) Carbon Dioxide 18 L (22-30) mmol/L Glucose 103 H (75-100) mg/dL AST (5-40) units/L Lipase (13-60) units/L Salicylates < 0.3 L (2.8-20.0) mg/dL Acetaminophen < 5.0 L (10.0-30.0) ug/mL Plasma/Serum Alcohol (0-0.07) % 06/07/19 06/07/19 06/07/19 Range/Units 21:55 21:55 21:55 Hgb 11.6 L (11.8-15.2) gm/dl RDW 17.4 H (13.2-15.2) % APTT (24.2-36.6) Sec. POC ABG pO2 (80-105) Carbon Dioxide (22-30) mmol/L Glucose (75-100) mg/dL AST 41 H (5-40) units/L Lipase (13-60) units/L Salicylates (2.8-20.0) mg/dL Acetaminophen (10.0-30.0) ug/mL Plasma/Serum Alcohol 0.19 H (0-0.07) % 06/08/19 06/08/19 06/08/19 Range/Units 10:22 10:33 11:11 Hgb (11.8-15.2) gm/dl RDW (13.2-15.2) % APTT 21.0 L (24.2-36.6) Sec. POC ABG pO2 59 L (80-105) Carbon Dioxide (22-30) mmol/L Glucose (75-100) mg/dL AST (5-40) units/L Lipase 10 L (13-60) units/L Salicylates (2.8-20.0) mg/dL Acetaminophen (10.0-30.0) ug/mL Plasma/Serum Alcohol (0-0.07) % All other labs normal. Assessment and Plan Assessment and plan: Impression: PPHx Schizophrenia and MDD. Alcohol Use Disorder. Today the patient is calm and cooperative during the assessment. He endorses SI's with plan. He denies psychosis. UDS positive for marijuana, methadone, and barbiturates. He denies HI's and A/VH's. Recommendation/Plan: 1. Continue 1013. 2. Restart Prozac 20mg po QAM depression/anxiety, Zyprexa 10mg po BID mood/psychosis, Trazodone 200mg po QHS. Discussed metabolic side effects and possible increase suicidality/ medication induced millie. Patient verbalizes understanding. 3. Recommend CIWA protocol. Disposition: Will reassess in 24 hours. Will refer to inpatient psychiatric services. Will staff with Dr. Carlos Cobos.
--- NOTE | 2019-06-08 14:16 | Cat Scan Report ---
CT ABDOMEN AND PELVIS WITH CONTRAST HISTORY: Abdominal pain, sepsis COMPARISON: 12/14/2018 TECHNIQUE: Axial CT images were obtained through the abdomen and pelvis after 100 cc of Omnipaque 300 intravenously. Sagittal and coronal reformatted images. All CT scans at this location are performed using CT dose reduction for ALARA by means of automated exposure control. FINDINGS: CT ABDOMEN: Lung Bases: Dense consolidation has developed throughout the right middle and lower lobes. The left l moe bases clear. Heart size is within normal limits. Small to medium hiatal hernia is seen posterior to the heart. Liver: No significant abnormality. Biliary: No significant abnormality. Spleen: No significant abnormality. Unenlarged. Pancreas: No significant abnormality. Adrenals: No significant abnormality. Kidneys: No significant abnormality. Lymphatics: No lymphadenopathy. Vasculature: No significant abnormality. Bowel/Peritoneum: No significant abnormality. No free air. No free fluid. Normal appendix. CT PELVIS: : The bladder is mildly distended but otherwise unremarkable. Normal prostate gland. Osseous Structures: Intact. Mild lumbar spondylosis. Additional Findings: Small supraumbilical ventral wall defects containing fat are unchanged. IMPRESSION: Right lung pneumonia. No acute process is identified in the abdomen or pelvis. Bee hernia. Ventral wall defects containing fat. Signer Name: Alexis Quinn Jr, MD Signed: 06/08/2019 2:11 PM Workstation Name: [id number]
[2019-06-08] MEDS ORDERED: D5W/0.45% NACL 1,000 ML IV ONE (14:35)
[2019-06-08] MEDS: D5W/0.45% NACL 1,000 ML IV SCH (14:41)
--- NOTE | 2019-06-08 15:00 | History and Physical Report ---
History of Present Illness Date of examination: 06/08/19 Date of admission: 06/08/19 10:23 Chief complaint: Suicidal Cough shortness of breath History of present illness: Patient is 53yo with schizophrenia. He presented to ED because of suicidal ideations. He says he has voices telling him to kill himself. He was seen and evaluated in ED, and evaluated by Psych. However he was found to be hypoxic and Chest X ray revealed pneumonia right lower lobe. When i saw him, he complained of shortness of breath, cough. He also has tachycardia. He has been started on iv Antibiotic. Will admit. Past History Past Medical History: liver disease, other (Alcohol abuse,schizophrenia,) Past Surgical History: hernia repair, Other (right ankle surgery) Social history: alcohol abuse, full code, other (marijuana use). denies: smoking Family history: other (schizophrenia) Medications and Allergies Allergies Allergy/AdvReac Type Severity Reaction Status Date / Time Penicillins Allergy Hives Verified 01/01/19 08:47 Home Medications Medication Instructions Recorded Confirmed Last Taken Type FLUoxetine [PROzac] 20 mg PO QAM #30 capsule 01/13/19 06/09/19 Unknown Rx OLANzapine [Zyprexa] 10 mg PO BID 01/23/19 06/09/19 Unknown History traZODone 200 mg PO QHS 05/17/19 06/09/19 Unknown History Active Meds: Active Medications Vancomycin HCl 1,500 mg/ (Sodium Chloride) 530 mls @ 265 mls/hr IV Q12H [facility] Last Admin: 06/08/19 14:09 Dose: 265 mls/hr Documented by: Dextrose/Sodium Chloride (D5/0.45ns) 1,000 mls @ 75 mls/hr IV DIRECT [facility] Last Admin: 06/08/19 14:41 Dose: 75 mls/hr Documented by: Lorazepam (Ativan) 2 mg IV Q1H PRN PRN Reason: CIWA-Ar 8-15 Lorazepam (Ativan) 4 mg IV Q1H PRN PRN Reason: CIWA-Ar 16-25 Lorazepam (Ativan) 4 mg IV Q15MIN PRN PRN Reason: CIWA-Ar >25 Review of Systems All systems: negative (No fever, no headache, All other systems reviewed and are negative.) Exam - Physical Exam Narrative exam: Gen: Not in acute distress, lying in bed HEENT: Normocephalic, atraumatic Neck: supple, no JVD Heart: S1 and S2 reg, no murmurs, rubs or gallop Lungs: Decreased breath sounds right base, no wheezing, Abd: soft, mild tender, no rebound tenderness, non distended, normal BS, Ext: No edema, no clubbing, no cyanosis Neuro: Awake, alert, oriented X 3, - Constitutional Vitals: Temp Pulse Resp BP Pulse Ox 98.4 F 116 H 25 H 108/62 99 06/08/19 02:00 06/08/19 13:00 06/08/19 09:38 06/08/19 13:00 06/08/19 11:00 Results - Labs CBC & Chem 7: 06/10/19 06:40 06/10/19 06:40 Labs: Abnormal lab results 06/07/19 06/07/19 06/07/19 Range/Units 21:55 21:55 21:55 Hgb (11.8-15.2) gm/dl RDW (13.2-15.2) % APTT (24.2-36.6) Sec. POC ABG pO2 (80-105) Carbon Dioxide 18 L (22-30) mmol/L Glucose 103 H (75-100) mg/dL AST (5-40) units/L Lipase (13-60) units/L Salicylates < 0.3 L (2.8-20.0) mg/dL Acetaminophen < 5.0 L (10.0-30.0) ug/mL Plasma/Serum Alcohol (0-0.07) % 06/07/19 06/07/19 06/07/19 Range/Units 21:55 21:55 21:55 Hgb 11.6 L (11.8-15.2) gm/dl RDW 17.4 H (13.2-15.2) % APTT (24.2-36.6) Sec. POC ABG pO2 (80-105) Carbon Dioxide (22-30) mmol/L Glucose (75-100) mg/dL AST 41 H (5-40) units/L Lipase (13-60) units/L Salicylates (2.8-20.0) mg/dL Acetaminophen (10.0-30.0) ug/mL Plasma/Serum Alcohol 0.19 H (0-0.07) % 06/08/19 06/08/19 06/08/19 Range/Units 10:22 10:33 11:11 Hgb (11.8-15.2) gm/dl RDW (13.2-15.2) % APTT 21.0 L (24.2-36.6) Sec. POC ABG pO2 59 L (80-105) Carbon Dioxide (22-30) mmol/L Glucose (75-100) mg/dL AST (5-40) units/L Lipase 10 L (13-60) units/L Salicylates (2.8-20.0) mg/dL Acetaminophen (10.0-30.0) ug/mL Plasma/Serum Alcohol (0-0.07) % Assessment and Plan Pneumonia right lung Admit Levaquin 750mg iv daily Blood cultures drawn Alcohol withdrawal syndrome [facility] protocol to manage withdrawal Suicidal ideas psych consulted On 101 Sinus tachycardia may be SIRS vs sepsis Blood cultures drawn Polysubstance abuse I counseled him on quitting marijuana, alcohol Full code status
[2019-06-08] MEDS: HYDROcodone/ACETAMINOPHEN 5-325 MG TAB PO PRN (15:25)
[2019-06-08] MEDS ORDERED: ONDANSETRON 4 MG/2 ML INJ IV PRN (16:12)
[2019-06-08] MEDS ORDERED: ALBUTEROL 2.5 MG/3 ML NEBU IH PRN (16:12)
[2019-06-08] MEDS ORDERED: MULTIVITAMINS ,THERAPEUTIC TAB PO ONE (19:35)
[2019-06-08] MEDS: MULTIVITAMINS ,THERAPEUTIC TAB PO SCH (19:37)
[2019-06-08] MEDS: FOLIC ACID 1 MG in SODIUM CHLORIDE 0.9% 50 ML IV SCH (20:06)
[2019-06-08] MEDS: THIAMINE 100 MG in SODIUM CHLORIDE 0.9% 50 ML IV SCH (20:38)
[2019-06-08] MEDS: LORazepam 2 MG/ML VIAL IV PRN (21:06)
[2019-06-08] MEDS ORDERED: traZODone 100 MG TAB PO SCH (22:00)
[2019-06-09] MEDS: VANCOMYCIN 1,500 MG in SODIUM CHLORIDE 0.9% 500 ML 500 ML IV SCH (02:50)
[2019-06-09] MEDS: HYDROcodone/ACETAMINOPHEN 5-325 MG TAB PO PRN ×3 (03:47→16:37)
[2019-06-09 06:13] LABS: BUN/Creatinine Ratio 11; Blood Urea Nitrogen 8 mg/dL (9-20); Calcium 8.5 mg/dL (8.4-10.2); Hemolysis Index 94
[2019-06-09 06:47] LABS: Hematocrit 28.7 % (35.5-45.6); Hemoglobin 9.5 gm/dl (11.8-15.2); Mean Corpuscular HGB Conc 33 % (32-34); Mean Corpuscular Volume 89 fl (84-94); Platelet Count 220 K/mm3 (140-440); Red Blood Count 3.24 M/mm3 (3.65-5.03); Red Cell Distribution Width 16.3 % (13.2-15.2)
[2019-06-09] MEDS: D5W/0.45% NACL 1,000 ML IV SCH (09:02)
[2019-06-09] MEDS: MULTIVITAMINS ,THERAPEUTIC TAB PO SCH (10:02)
[2019-06-09] MEDS: FLUoxetine 20 MG CAP PO SCH (10:02)
--- NOTE | 2019-06-09 10:10 | Consultation ---
History of Present Illness Reason for consult: pneumonia History of present illness: This is a pt that was admitted with suicidal thought and ideation. On eval he was found to have rt ll pneumonia Pt reports sob and cough No reports of hemoptysis. No reports of fever. Past History Past Medical History: liver disease, other (Alcohol abuse) Past Surgical History: hernia repair Social history: smoking Family history: hypertension Medications and Allergies Allergies Allergy/AdvReac Type Severity Reaction Status Date / Time Penicillins Allergy Hives Verified 01/01/19 08:47 Home Medications Medication Instructions Recorded Confirmed Last Taken Type FLUoxetine [PROzac] 20 mg PO QAM #30 capsule 01/13/19 05/25/19 Unknown Rx OLANzapine [Zyprexa] 10 mg PO BID 01/23/19 05/25/19 Unknown History traZODone 200 mg PO QHS 05/17/19 05/25/19 Unknown History Active Meds: Active Medications Acetaminophen (Tylenol) 650 mg PO Q4H PRN PRN Reason: Pain MILD(1-3)/Fever >100.5/MCDANIEL Acetaminophen/Hydrocodone Bitart ([place] 5/325) 1 each PO Q6H PRN PRN Reason: Pain, Moderate (4-6) Last Admin: 06/09/19 10:03 Dose: 1 each Documented by: Albuterol (Proventil) 2.5 mg IH Q4HRT PRN PRN Reason: Shortness Of Breath Fluoxetine HCl (Prozac) 20 mg PO QDAY JOAN Last Admin: 06/09/19 10:02 Dose: 20 mg Documented by: Dextrose/Sodium Chloride (D5/0.45ns) 1,000 mls @ 75 mls/hr IV DIRECT JOAN Last Admin: 06/09/19 09:02 Dose: 75 mls/hr Documented by: Levofloxacin/Dextrose (Levaquin 750mg/150ml) 750 mg in 150 mls @ 100 mls/hr IV Q24H JOAN; Protocol Last Admin: 06/09/19 10:03 Dose: 100 mls/hr Documented by: Folic Acid 1 mg/ Sodium (Chloride) 50.2 mls @ 200.8 mls/hr IV QDAY JOAN Last Admin: 06/08/19 20:06 Dose: 200.8 mls/hr Documented by: Thiamine HCl 100 mg/ Sodium (Chloride) 51 mls @ 100 mls/hr IV QDAY [facility] Last Admin: 06/08/19 20:38 Dose: 100 mls/hr Documented by: Lorazepam (Ativan) 2 mg IV Q1H PRN PRN Reason: CIWA-Ar 8-15 Last Admin: 06/08/19 21:06 Dose: 2 mg Documented by: Lorazepam (Ativan) 4 mg IV Q1H PRN PRN Reason: CIWA-Ar 16-25 Lorazepam (Ativan) 4 mg IV Q15MIN PRN PRN Reason: CIWA-Ar >25 Multivitamins (Theragran Tab) 1 each PO QDAY [facility] Last Admin: 06/09/19 10:02 Dose: 1 each Documented by: Olanzapine (Zyprexa) 10 mg PO BID [facility] Last Admin: 06/08/19 22:04 Dose: 10 mg Documented by: Ondansetron HCl (Zofran) 4 mg IV Q8H PRN PRN Reason: Nausea And Vomiting Sodium Chloride (Sodium Chloride Flush Syringe 10 Ml) 10 ml IV BID [facility] Last Admin: 06/09/19 10:03 Dose: 10 ml Documented by: Sodium Chloride (Sodium Chloride Flush Syringe 10 Ml) 10 ml IV PRN PRN PRN Reason: LINE FLUSH Trazodone HCl (Desyrel) 200 mg PO QHS [facility] Last Admin: 06/08/19 21:05 Dose: 200 mg Documented by: Review of Systems Constitutional: weakness, chronic pain Respiratory: cough, cough with sputum, shortness of breath Gastrointestinal: dyspepsia/bloating Musculoskeletal: morning stiffness Physical Examination Vital signs: Vital Signs Temp Pulse Resp BP Pulse Ox 97.9 F 131 H 20 93/53 93 06/07/19 21:01 06/07/19 21:01 06/07/19 21:01 06/07/19 21:01 06/07/19 21:01 General appearance: no acute distress, alert Eyes: non-icteric ENT: oropharynx moist, oropharynx erythematous Effort: normal Ascultation: Bilateral: diminished breath sounds, wheezes Cardiovascular: regular rate and rhythm Gastrointestinal: normoactive bowel sounds, soft, non-tender, non-distended Integumentary: normal Extremities: no cyanosis Musculoskeletal: no deformities normal mental status, non-focal exam affect normal, depressed Results - Laboratory Findings CBC and BMP: 06/09/19 06:15 06/09/19 05:24 ABG POC ABG pH 7.402 (7.35-7.45) 06/08/19 11:11 POC ABG pCO2 40.9 (35-45) 06/08/19 11:11 POC ABG pO2 59 (80-105) L 06/08/19 11:11 POC ABG HCO3 25.5 (22-26 mml/L) 06/08/19 11:11 POC ABG Total CO2 27 (23-27mmol/L) 06/08/19 11:11 POC ABG O2 Sat 90 06/08/19 11:11 PT/INR, D-dimer PT 13.6 Sec. (12.2-14.9) 06/08/19 10:33 INR 1.05 (0.87-1.13) 06/08/19 10:33 Abnormal lab findings: Abnormal Labs 06/07/19 06/07/19 06/07/19 21:55 21:55 21:55 WBC RBC Hgb Hct RDW APTT POC ABG pO2 Carbon Dioxide 18 L BUN Creatinine Glucose 103 H AST Lipase Salicylates < 0.3 L Acetaminophen < 5.0 L Plasma/Serum Alcohol 06/07/19 06/07/19 06/07/19 21:55 21:55 21:55 WBC RBC Hgb 11.6 L Hct RDW 17.4 H APTT POC ABG pO2 Carbon Dioxide BUN Creatinine Glucose AST 41 H Lipase Salicylates Acetaminophen Plasma/Serum Alcohol 0.19 H 06/08/19 06/08/19 06/08/19 10:22 10:33 11:11 WBC RBC Hgb Hct RDW APTT 21.0 L POC ABG pO2 59 L Carbon Dioxide BUN Creatinine Glucose AST Lipase 10 L Salicylates Acetaminophen Plasma/Serum Alcohol 06/09/19 06/09/19 05:24 06:15 WBC 11.6 H RBC 3.24 L Hgb 9.5 L Hct 28.7 L D RDW 16.3 H APTT POC ABG pO2 Carbon Dioxide 21 L BUN 8 L Creatinine 0.7 L Glucose 111 H AST Lipase Salicylates Acetaminophen Plasma/Serum Alcohol - Diagnostic Findings Chest x-ray: report reviewed, image reviewed Assessment and Plan - Patient Problems (1) Pneumonia Current Visit: Yes Status: Acute (2) Cough Current Visit: Yes Status: Acute (3) Suicidal ideations Current Visit: No Status: Acute
[2019-06-09] MEDS: BUDESONIDE 0.5 MG/2 ML NEBU IH SCH ×2 (11:31→22:15)
[2019-06-09] MEDS: ARFORMOTEROL 15 MCG/2 ML NEBU IH SCH ×2 (11:31→22:15)
[2019-06-09] MEDS: guaiFENesin ER 600 MG TAB PO SCH ×2 (11:32→21:49)
[2019-06-09] MEDS: PANTOPRAZOLE 40 MG TAB PO SCH (11:32)
[2019-06-09] MEDS: FOLIC ACID 1 MG in SODIUM CHLORIDE 0.9% 50 ML IV SCH (11:33)
[2019-06-09] MEDS: methylPREDNISolone Sod Succinate 40 MG/1 ML INJ IV SCH ×2 (11:33→20:50)
--- NOTE | 2019-06-09 11:40 | Progress Note ---
Subjective - Reason for Consult Consult date: 06/09/19 Reason for consult: Psychiatry Follow-up - Chief Complaint Chief complaint: 53 y.o. AA mle who presented to the ER for etoh and SI's. The patient is known to me. Today the patient was calm and cooperative during the assessment. He stated that he feel somewhat better when asked. He stated that the his SI's are decreasing along with the AH's. He stated that he will stay compliant with his psy medication in the future. He denies HI's and VH's. He denies any side effects from his medication. Mental Status Exam - Vital signs Last Vital Signs Temp 98.2 F 06/09/19 06:40 Pulse 102 H 06/09/19 06:40 Resp 18 06/09/19 10:03 BP 114/66 06/09/19 06:40 Pulse Ox 98 06/09/19 06:40 - Exam Narrative exam: MSE: Appearance: disheveled Behavior: regular eye contact Speech: regular rate and tone Mood: "okay" Affect: congruent to mood Thought Process: circumstantial Thought Content: denies HI's and VH's Motor Activity: ambulatory Cognition: A/O x 3 Insight: fair Judgment: variable Assessment and Plan Impression: MDD with psychosis. Alcohol Use DO. Today the patient was calm during the assessment. Mild tremors noted (etoh). The patient is tacycardic. DDX: Alcohol Induced Mood DO Recommendation/Plan: Reevaluate the patient's 1013 in 24 hours. Continue 1013, CIWA, Zyprexa 10 mg PO BID for psychosis/mood, and Prozac 20 mg PO daily for depression. Start Melatonin 5 mg PO HS for sleep. Discussed possible metabolic side effects of Zyprexa with the patient, he verbalized understanding. Discussed possible suicidality/medication induced millie with the patient reference Prozac, he verbalized understanding. Dispo: If the patient's 1013 is rescinded in 24 hours, he can follow up with [facility] for outpatient psy/rehab services. Staffed with Dr Carlos Cobos.
[2019-06-09] MEDS: THIAMINE 100 MG in SODIUM CHLORIDE 0.9% 50 ML IV SCH (12:42)
--- NOTE | 2019-06-09 16:03 | Progress Note ---
Assessment and Plan Assessment and plan: Pneumonia right lung Admitted to Levaquin 750mg iv daily Blood cultures drawn Alcohol withdrawal syndrome [facility] protocol to manage withdrawal Suicidal ideas psych consulted Continue 1013 Sinus tachycardia may be SIRS vs sepsis Blood cultures drawn Polysubstance abuse I counseled him on quitting marijuana, alcohol Full code status History Interval history: Suicidal ideation less shortness of breath Hospitalist Physical - Physical exam Narrative exam: Gen: Not in acute distress, lying in bed HEENT: Normocephalic, atraumatic Neck: supple, no JVD Heart: S1 and S2 reg, no murmurs, rubs or gallop Lungs: Decreased breath sounds right base, no wheezing, Abd: soft, mild tender, no rebound tenderness, non distended, normal BS, Ext: No edema, no clubbing, no cyanosis Neuro: Awake, alert, oriented X 3, - Constitutional Vitals: Temp Pulse Resp BP Pulse Ox 98.1 F 105 H 20 107/68 96 06/09/19 11:35 06/09/19 11:35 06/09/19 11:35 06/09/19 11:35 06/09/19 11:35 Results - Labs CBC & Chem 7: 06/10/19 06:40 06/10/19 06:40 Labs: Laboratory Last Values WBC 11.6 K/mm3 (4.5-11.0) H 06/09/19 06:15 RBC 3.24 M/mm3 (3.65-5.03) L 06/09/19 06:15 Hgb 9.5 gm/dl (11.8-15.2) L 06/09/19 06:15 Hct 28.7 % (35.5-45.6) L D 06/09/19 06:15 MCV 89 fl (84-94) 06/09/19 06:15 MCH 29 pg (28-32) 06/09/19 06:15 MCHC 33 % (32-34) 06/09/19 06:15 RDW 16.3 % (13.2-15.2) H 06/09/19 06:15 Plt Count 220 K/mm3 (140-440) 06/09/19 06:15 Lymph % (Auto) [employer] 06/09/19 06:15 [place] % (Auto) [employer] 06/09/19 06:15 Eos % (Auto) [employer] 06/09/19 06:15 Baso % (Auto) [employer] 06/09/19 06:15 Lymph # [employer] 06/09/19 06:15 [place] # [employer] 06/09/19 06:15 Eos # [employer] 06/09/19 06:15 Baso # [employer] 06/09/19 06:15 Seg Neutrophils % [employer] 06/09/19 06:15 Seg Neutrophils # [employer] 06/09/19 06:15 PT 13.6 Sec. (12.2-14.9) 06/08/19 10:33 INR 1.05 (0.87-1.13) 06/08/19 10:33 APTT 21.0 Sec. (24.2-36.6) L 06/08/19 10:33 POC ABG pH 7.402 (7.35-7.45) 06/08/19 11:11 POC ABG pCO2 40.9 (35-45) 06/08/19 11:11 POC ABG pO2 59 (80-105) L 06/08/19 11:11 POC ABG HCO3 25.5 (22-26 mml/L) 06/08/19 11:11 POC ABG Total CO2 27 (23-27mmol/L) 06/08/19 11:11 POC ABG O2 Sat 90 06/08/19 11:11 POC ABG Base Excess 1 ((-2) - (+3)mmol/L) 06/08/19 11:11 FiO2 36 % 06/08/19 11:11 Sodium 137 mmol/L (137-145) 06/09/19 05:24 Potassium 4.5 mmol/L (3.6-5.0) D 06/09/19 05:24 Chloride 106.3 mmol/L (98-107) 06/09/19 05:24 Carbon Dioxide 21 mmol/L (22-30) L 06/09/19 05:24 Anion Gap 14 mmol/L 06/09/19 05:24 BUN 8 mg/dL (9-20) L 06/09/19 05:24 Creatinine 0.7 mg/dL (0.8-1.5) L 06/09/19 05:24 Estimated GFR > 60 ml/min 06/09/19 05:24 BUN/Creatinine Ratio 11 % 06/09/19 05:24 Glucose 111 mg/dL (75-100) H 06/09/19 05:24 Lactic Acid 1.50 mmol/L (0.7-2.0) 06/08/19 10:22 Calcium 8.5 mg/dL (8.4-10.2) 06/09/19 05:24 Magnesium 2.00 mg/dL (1.7-2.3) 06/08/19 10:22 Total Bilirubin 0.20 mg/dL (0.1-1.2) 06/07/19 21:55 Direct Bilirubin < 0.2 mg/dL (0-0.2) 06/07/19 21:55 Indirect Bilirubin 0.0 mg/dL 06/07/19 21:55 AST 41 units/L (5-40) H 06/07/19 21:55 ALT 55 units/L (7-56) 06/07/19 21:55 Alkaline Phosphatase 100 units/L (35-129) 06/07/19 21:55 Troponin T < 0.010 ng/mL (0.00-0.029) 06/09/19 05:24 NT-Pro-B Natriuret Pep 111.0 pg/mL (0-900) 06/08/19 10:22 Total Protein 7.6 g/dL (6.3-8.2) 06/07/19 21:55 Albumin 4.2 g/dL (3.9-5) 06/07/19 21:55 Albumin/Globulin Ratio 1.2 % 06/07/19 21:55 Lipase 10 units/L (13-60) L 06/08/19 10:22 Urine Color Yellow (Yellow) 06/08/19 Unknown Urine Turbidity Hazy (Clear) 06/08/19 Unknown Urine pH 5.0 (5.0-7.0) 06/08/19 Unknown Ur Specific [place] 1.021 (1.003-1.030) 06/08/19 Unknown Urine Protein <15 mg/dl mg/dL (Negative) 06/08/19 Unknown Urine Glucose (UA) Neg mg/dL (Negative) 06/08/19 Unknown Urine Ketones Tr mg/dL (Negative) 06/08/19 Unknown Urine Blood Neg (Negative) 06/08/19 Unknown Urine Nitrite Neg (Negative) 06/08/19 Unknown Urine Bilirubin Neg (Negative) 06/08/19 Unknown Urine Urobilinogen < 2.0 mg/dL (<2.0) 06/08/19 Unknown Ur Leukocyte Esterase Neg (Negative) 06/08/19 Unknown Urine WBC (Auto) 6.0 /HPF (0.0-6.0) 06/08/19 Unknown Urine RBC (Auto) 4.0 /HPF (0.0-6.0) 06/08/19 Unknown U Epithel Cells (Auto) 1.0 /HPF (0-13.0) 06/08/19 Unknown Urine Mucus Few /HPF 06/08/19 Unknown Salicylates < 0.3 mg/dL (2.8-20.0) L 06/07/19 21:55 Urine Opiates Screen Presumptive negative 06/08/19 Unknown Urine Methadone Screen Presumptive positive 06/08/19 Unknown Acetaminophen < 5.0 ug/mL (10.0-30.0) L 06/07/19 21:55 Ur Barbiturates Screen Presumptive positive 06/08/19 Unknown Ur Phencyclidine Scrn Presumptive negative 06/08/19 Unknown Ur Amphetamines Screen Presumptive negative 06/08/19 Unknown U Benzodiazepines Scrn Presumptive negative 06/08/19 Unknown Urine Cocaine Screen Presumptive negative 06/08/19 Unknown U Marijuana (THC) Screen Presumptive positive 06/08/19 Unknown Drugs of Abuse Note Disclamer 06/08/19 Unknown Plasma/Serum Alcohol 0.19 % (0-0.07) H 06/07/19 21:55 Active Medications - Current Medications Current Medications: Generic Name Dose Route Start Last Admin Trade Name Freq PRN Reason Stop Dose Admin Acetaminophen 650 mg 06/08/19 16:12 Tylenol PO Q4H PRN Pain MILD(1-3)/Fever >100.5/MCDANIEL Acetaminophen/Hydrocodone Bitart 1 each 06/08/19 15:00 06/09/19 10:03 [place] 5/325 PO 1 each Q6H PRN Administration Pain, Moderate (4-6) Albuterol 2.5 mg 06/08/19 16:12 Proventil IH Q4HRT PRN Shortness Of Breath Arformoterol Tartrate 15 mcg 06/09/19 11:15 06/09/19 11:31 Brovana Nebu IH Not Given Q12HRT JOAN Budesonide 0.5 mg 06/09/19 11:15 06/09/19 11:31 Pulmicort IH Not Given Q12HRT JOAN Fluoxetine HCl 20 mg 06/09/19 10:00 06/09/19 10:02 Prozac PO 20 mg QDAY JOAN Administration Guaifenesin 600 mg 06/09/19 11:00 06/09/19 11:32 Mucinex Er PO 600 mg BID JOAN Administration Dextrose/Sodium Chloride 1,000 mls @ 75 mls/hr 06/08/19 13:00 06/09/19 09:02 D5/0.45ns IV 75 mls/hr DIRECT JOAN Administration Levofloxacin/Dextrose 750 mg in 150 mls @ 100 mls/hr 06/09/19 10:00 06/09/19 10:03 Levaquin 750mg/150ml IV 100 mls/hr Q24H JOAN Administration Protocol Folic Acid 1 mg/ Sodium 50.2 mls @ 200.8 mls/hr 06/08/19 19:00 06/09/19 12:42 Chloride IV Infused QDAY JOAN Infusion Thiamine HCl 100 mg/ Sodium 51 mls @ 100 mls/hr 06/08/19 19:00 06/09/19 15:36 Chloride IV Infused QDAY JOAN Infusion Lorazepam 2 mg 06/07/19 22:20 06/08/19 21:06 Ativan IV 2 mg Q1H PRN Administration CIWA-Ar 8-15 Lorazepam 4 mg 06/07/19 22:20 Ativan IV Q1H PRN CIWA-Ar 16-25 Lorazepam 4 mg 06/07/19 22:20 Ativan IV Q15MIN PRN CIWA-Ar >25 Melatonin 5 mg 06/09/19 22:00 Melatonin PO QHS JOAN Methylprednisolone Sodium Succinate 40 mg 06/09/19 12:00 06/09/19 11:33 Solu-Medrol IV 06/10/19 12:01 40 mg Q8H JOAN Administration Multivitamins 1 each 06/08/19 19:00 06/09/19 10:02 Theragran Tab PO 1 each QDAY JOAN Administration Olanzapine 10 mg 06/08/19 22:00 06/09/19 12:44 Zyprexa PO 10 mg BID JOAN Administration Ondansetron HCl 4 mg 06/08/19 16:12 Zofran IV Q8H PRN Nausea And Vomiting Pantoprazole Sodium 40 mg 06/09/19 11:00 06/09/19 11:32 Protonix PO 40 mg QDAY JOAN Administration Sodium Chloride 10 ml 06/08/19 22:00 06/09/19 10:03 Sodium Chloride Flush Syringe 10 Ml IV 10 ml BID JOAN Administration Sodium Chloride 10 ml 06/08/19 16:12 Sodium Chloride Flush Syringe 10 Ml IV PRN PRN LINE FLUSH
[2019-06-09] MEDS: LORazepam 2 MG/ML VIAL IV PRN (16:37)
[2019-06-09] MEDS: MELATONIN 5 MG TAB PO SCH (21:49)
[2019-06-10] MEDS: methylPREDNISolone Sod Succinate 40 MG/1 ML INJ IV SCH ×2 (05:57→12:25)
[2019-06-10 07:05] LABS: Hematocrit 31.4 % (35.5-45.6); Mean Corpuscular HGB Conc 32 % (32-34); Mean Corpuscular Volume 91 fl (84-94); Platelet Count 231 K/mm3 (140-440); Red Blood Count 3.44 M/mm3 (3.65-5.03); Red Cell Distribution Width 15.8 % (13.2-15.2)
[2019-06-10 07:19] LABS: BUN/Creatinine Ratio 14; Blood Urea Nitrogen 7 mg/dL (9-20); Hemolysis Index 23
--- NOTE | 2019-06-10 08:29 | Progress Note ---
Assessment and Plan - Patient Problems (1) Pneumonia Current Visit: Yes Status: Acute (2) Cough Current Visit: Yes Status: Acute (3) Suicidal ideations Current Visit: No Status: Acute Subjective Interval history: wants more pain meds not sob this am Objective Vital Signs - 12hr 06/09/19 06/09/19 06/09/19 21:16 22:00 22:15 Temperature 98.6 F Pulse Rate 93 H 93 H Pulse Rate [ 92 H Anterior Left Throughout] Respiratory 16 Rate Respiratory 15 Rate [Anterior Left Throughout ] Blood Pressure 139/83 O2 Sat by Pulse 97 Oximetry Constitutional: no acute distress, alert Eyes: non-icteric ENT: oropharynx moist, oropharynx erythematous Effort: normal Ascultation: Bilateral: diminished breath sounds, wheezes Cardiovascular: regular rate and rhythm Gastrointestinal: normoactive bowel sounds, soft, non-tender, non-distended Integumentary: normal Extremities: no cyanosis Neurologic: normal mental status, non-focal exam Psychiatric: affect normal, depressed CBC and BMP: 06/10/19 06:40 06/10/19 06:40 ABG, PT/INR, D-dimer: ABG POC ABG pH 7.402 (7.35-7.45) 06/08/19 11:11 POC ABG pCO2 40.9 (35-45) 06/08/19 11:11 POC ABG pO2 59 (80-105) L 06/08/19 11:11 POC ABG HCO3 25.5 (22-26 mml/L) 06/08/19 11:11 POC ABG Total CO2 27 (23-27mmol/L) 06/08/19 11:11 POC ABG O2 Sat 90 06/08/19 11:11 PT/INR, D-dimer PT 13.6 Sec. (12.2-14.9) 06/08/19 10:33 INR 1.05 (0.87-1.13) 06/08/19 10:33 Abnormal lab findings: Abnormal Labs 06/07/19 06/07/19 06/07/19 21:55 21:55 21:55 WBC RBC Hgb Hct RDW APTT POC ABG pO2 Carbon Dioxide 18 L BUN Creatinine Glucose 103 H AST Lipase Salicylates < 0.3 L Acetaminophen < 5.0 L Plasma/Serum Alcohol 11/06/07/19 06/07/19 21:55 21:55 21:55 WBC RBC Hgb 11.6 L Hct RDW 17.4 H APTT POC ABG pO2 Carbon Dioxide BUN Creatinine Glucose AST 41 H Lipase Salicylates Acetaminophen Plasma/Serum Alcohol 0.19 H 06/08/19 06/08/19 06/08/19 10:22 10:33 11:11 WBC RBC Hgb Hct RDW APTT 21.0 L POC ABG pO2 59 L Carbon Dioxide BUN Creatinine Glucose AST Lipase 10 L Salicylates Acetaminophen Plasma/Serum Alcohol 06/09/19 06/09/19 06/10/19 05:24 06:15 06:40 WBC 11.6 H 12.2 H RBC 3.24 L 3.44 L Hgb 9.5 L 10.0 L Hct 28.7 L D 31.4 L RDW 16.3 H 15.8 H APTT POC ABG pO2 Carbon Dioxide 21 L BUN 8 L Creatinine 0.7 L Glucose 111 H AST Lipase Salicylates Acetaminophen Plasma/Serum Alcohol 06/10/19 06:40 WBC RBC Hgb Hct RDW APTT POC ABG pO2 Carbon Dioxide BUN 7 L Creatinine 0.5 L Glucose 146 H AST Lipase Salicylates Acetaminophen Plasma/Serum Alcohol
[2019-06-10] MEDS: BUDESONIDE 0.5 MG/2 ML NEBU IH SCH ×2 (08:30→21:14)
[2019-06-10] MEDS: ARFORMOTEROL 15 MCG/2 ML NEBU IH SCH ×2 (08:31→21:14)
[2019-06-10] MEDS: guaiFENesin ER 600 MG TAB PO SCH ×2 (10:07→22:59)
[2019-06-10] MEDS: HYDROcodone/ACETAMINOPHEN 5-325 MG TAB PO PRN ×3 (10:08→23:11)
[2019-06-10] MEDS: MULTIVITAMINS ,THERAPEUTIC TAB PO SCH (10:08)
[2019-06-10] MEDS: FLUoxetine 20 MG CAP PO SCH (10:08)
[2019-06-10] MEDS: PANTOPRAZOLE 40 MG TAB PO SCH (10:08)
[2019-06-10] MEDS: FOLIC ACID 1 MG in SODIUM CHLORIDE 0.9% 50 ML IV SCH (10:13)
[2019-06-10] MEDS: THIAMINE 100 MG in SODIUM CHLORIDE 0.9% 50 ML IV SCH (10:15)
--- NOTE | 2019-06-10 11:30 | Progress Note ---
Subjective - Reason for Consult Consult date: 06/10/19 Reason for consult: Psychiatry Follow-up - Chief Complaint Chief complaint: "I am okay" 53 y.o. AA mle who presented to the ER for etoh and SI's. The patient is known to me. Today the patient was calm and cooperative during the assessment. He stated that his SI's and AH's isn't an issue now. He is concerned about his medical issue. He stated, "I want my pneumonia to go away." He denies SI/HI's and AVH's. He denies any side effects from his medication. Mental Status Exam - Vital signs Last Vital Signs Temp 98.6 F 06/09/19 21:16 Pulse 92 H 06/10/19 09:14 Resp 18 06/10/19 09:14 BP 139/83 06/09/19 21:16 Pulse Ox 92 06/10/19 09:16 - Exam Narrative exam: MSE: Appearance: calm, cooperative Behavior: regular eye contact Speech: regular rate and tone Mood: "okay" Affect: congruent to mood Thought Process: linear Thought Content: denies SI/HI's and AVH's Motor Activity: ambulatory Cognition: A/O x 3 Insight: fair Judgment: fair Assessment and Plan Impression: MDD with psychosis. Alcohol Use DO. No overt psychosis with the patient. Today the patient was calm during the assessment. The patient is no threat to self. DDX: Alcohol Induced Mood DO Recommendation/Plan: Rescind 1013. Continue Zyprexa 10 mg PO BID for psychosis/mood, Prozac 20 mg PO daily for depression, and Melatonin 5 mg PO HS for sleep. Discussed possible metabolic side effects of Zyprexa with the patient, he verbalized understanding. Discussed possible suicidality/medication induced millie with the patient reference Prozac, he verbalized understanding. Dispo: The patient can follow up with [facility] for outpatient psy/rehab services. Staffed with Dr Carlos Cobos.
--- NOTE | 2019-06-10 15:41 | Progress Note ---
Assessment and Plan Assessment and plan: Pneumonia right lung Admitted to [facility] Continue Levaquin 750mg iv daily Blood cultures drawn Alcohol withdrawal syndrome [facility] protocol to manage withdrawal Ativan iv prn Suicidal ideas psych consulted Continue 1013 Sinus tachycardia may be SIRS vs sepsis Blood cultures drawn Polysubstance abuse I counseled him on quitting marijuana, alcohol Full code status History Interval history: Suicidal ideation less shortness of breath Hospitalist Physical - Physical exam Narrative exam: Gen: Not in acute distress, lying in bed HEENT: Normocephalic, atraumatic Neck: supple, no JVD Heart: S1 and S2 reg, no murmurs, rubs or gallop Lungs: Decreased breath sounds right base, no wheezing, Abd: soft, mild tender, no rebound tenderness, non distended, normal BS, Ext: No edema, no clubbing, no cyanosis Neuro: Awake, alert, oriented X 3, - Constitutional Vitals: Temp Pulse Resp BP Pulse Ox 98.0 F 100 H 18 139/87 93 06/10/19 04:25 06/10/19 12:03 06/10/19 09:14 06/10/19 12:03 06/10/19 12:03 Results - Labs CBC & Chem 7: 06/11/19 07:00 06/11/19 07:00 Labs: Laboratory Last Values WBC 12.2 K/mm3 (4.5-11.0) H 06/10/19 06:40 RBC 3.44 M/mm3 (3.65-5.03) L 06/10/19 06:40 Hgb 10.0 gm/dl (11.8-15.2) L 06/10/19 06:40 Hct 31.4 % (35.5-45.6) L 06/10/19 06:40 MCV 91 fl (84-94) 06/10/19 06:40 MCH 29 pg (28-32) 06/10/19 06:40 MCHC 32 % (32-34) 06/10/19 06:40 RDW 15.8 % (13.2-15.2) H 06/10/19 06:40 Plt Count 231 K/mm3 (140-440) 06/10/19 06:40 Lymph % (Auto) [employer] 06/09/19 06:15 [place] % (Auto) [employer] 06/09/19 06:15 Eos % (Auto) [employer] 06/09/19 06:15 Baso % (Auto) [employer] 06/09/19 06:15 Lymph # [employer] 06/09/19 06:15 [place] # [employer] 06/09/19 06:15 Eos # [employer] 06/09/19 06:15 Baso # [employer] 06/09/19 06:15 Seg Neutrophils % [employer] 06/09/19 06:15 Seg Neutrophils # [employer] 06/09/19 06:15 PT 13.6 Sec. (12.2-14.9) 06/08/19 10:33 INR 1.05 (0.87-1.13) 06/08/19 10:33 APTT 21.0 Sec. (24.2-36.6) L 06/08/19 10:33 POC ABG pH 7.402 (7.35-7.45) 06/08/19 11:11 POC ABG pCO2 40.9 (35-45) 06/08/19 11:11 POC ABG pO2 59 (80-105) L 06/08/19 11:11 POC ABG HCO3 25.5 (22-26 mml/L) 06/08/19 11:11 POC ABG Total CO2 27 (23-27mmol/L) 06/08/19 11:11 POC ABG O2 Sat 90 06/08/19 11:11 POC ABG Base Excess 1 ((-2) - (+3)mmol/L) 06/08/19 11:11 FiO2 36 % 06/08/19 11:11 Sodium 137 mmol/L (137-145) 06/10/19 06:40 Potassium 4.9 mmol/L (3.6-5.0) 06/10/19 06:40 Chloride 101.4 mmol/L (98-107) 06/10/19 06:40 Carbon Dioxide 23 mmol/L (22-30) 06/10/19 06:40 Anion Gap 18 mmol/L 06/10/19 06:40 BUN 7 mg/dL (9-20) L 06/10/19 06:40 Creatinine 0.5 mg/dL (0.8-1.5) L 06/10/19 06:40 Estimated GFR > 60 ml/min 06/10/19 06:40 BUN/Creatinine Ratio 14 % 06/10/19 06:40 Glucose 146 mg/dL (75-100) H 06/10/19 06:40 Lactic Acid 1.50 mmol/L (0.7-2.0) 06/08/19 10:22 Calcium 9.0 mg/dL (8.4-10.2) 06/10/19 06:40 Magnesium 2.00 mg/dL (1.7-2.3) 06/08/19 10:22 Total Bilirubin 0.20 mg/dL (0.1-1.2) 06/07/19 21:55 Direct Bilirubin < 0.2 mg/dL (0-0.2) 06/07/19 21:55 Indirect Bilirubin 0.0 mg/dL 06/07/19 21:55 AST 41 units/L (5-40) H 06/07/19 21:55 ALT 55 units/L (7-56) 06/07/19 21:55 Alkaline Phosphatase 100 units/L (35-129) 06/07/19 21:55 Troponin T < 0.010 ng/mL (0.00-0.029) 06/09/19 05:24 NT-Pro-B Natriuret Pep 111.0 pg/mL (0-900) 06/08/19 10:22 Total Protein 7.6 g/dL (6.3-8.2) 06/07/19 21:55 Albumin 4.2 g/dL (3.9-5) 06/07/19 21:55 Albumin/Globulin Ratio 1.2 % 06/07/19 21:55 Lipase 10 units/L (13-60) L 06/08/19 10:22 Urine Color Yellow (Yellow) 06/08/19 Unknown Urine Turbidity Hazy (Clear) 06/08/19 Unknown Urine pH 5.0 (5.0-7.0) 06/08/19 Unknown Ur Specific [place] 1.021 (1.003-1.030) 06/08/19 Unknown Urine Protein <15 mg/dl mg/dL (Negative) 06/08/19 Unknown Urine Glucose (UA) Neg mg/dL (Negative) 06/08/19 Unknown Urine Ketones Tr mg/dL (Negative) 06/08/19 Unknown Urine Blood Neg (Negative) 06/08/19 Unknown Urine Nitrite Neg (Negative) 06/08/19 Unknown Urine Bilirubin Neg (Negative) 06/08/19 Unknown Urine Urobilinogen < 2.0 mg/dL (<2.0) 06/08/19 Unknown Ur Leukocyte Esterase Neg (Negative) 06/08/19 Unknown Urine WBC (Auto) 6.0 /HPF (0.0-6.0) 06/08/19 Unknown Urine RBC (Auto) 4.0 /HPF (0.0-6.0) 06/08/19 Unknown U Epithel Cells (Auto) 1.0 /HPF (0-13.0) 06/08/19 Unknown Urine Mucus Few /HPF 06/08/19 Unknown Salicylates < 0.3 mg/dL (2.8-20.0) L 06/07/19 21:55 Urine Opiates Screen Presumptive negative 06/08/19 Unknown Urine Methadone Screen Presumptive positive 06/08/19 Unknown Acetaminophen < 5.0 ug/mL (10.0-30.0) L 06/07/19 21:55 Ur Barbiturates Screen Presumptive positive 06/08/19 Unknown Ur Phencyclidine Scrn Presumptive negative 06/08/19 Unknown Ur Amphetamines Screen Presumptive negative 06/08/19 Unknown U Benzodiazepines Scrn Presumptive negative 06/08/19 Unknown Urine Cocaine Screen Presumptive negative 06/08/19 Unknown U Marijuana (THC) Screen Presumptive positive 06/08/19 Unknown Drugs of Abuse Note Disclamer 06/08/19 Unknown Plasma/Serum Alcohol 0.19 % (0-0.07) H 06/07/19 21:55 Active Medications - Current Medications Current Medications: Generic Name Dose Route Start Last Admin Trade Name Freq PRN Reason Stop Dose Admin Acetaminophen 650 mg 06/08/19 16:12 Tylenol PO Q4H PRN Pain MILD(1-3)/Fever >100.5/MCDANIEL Acetaminophen/Hydrocodone Bitart 1 each 06/08/19 15:00 06/10/19 10:08 [place] 5/325 PO 1 each Q6H PRN Administration Pain, Moderate (4-6) Albuterol 2.5 mg 06/08/19 16:12 Proventil IH Q4HRT PRN Shortness Of Breath Arformoterol Tartrate 15 mcg 06/09/19 11:15 06/10/19 08:31 Brovana Nebu IH 15 mcg Q12HRT JOAN Administration Budesonide 0.5 mg 06/09/19 11:15 06/10/19 08:30 Pulmicort IH 0.5 mg Q12HRT JOAN Administration Fluoxetine HCl 20 mg 06/09/19 10:00 06/10/19 10:08 Prozac PO 20 mg QDAY JOAN Administration Folic Acid 1 mg 06/11/19 10:00 Folvite PO DAILY JOAN Guaifenesin 600 mg 06/09/19 11:00 06/10/19 10:07 Mucinex Er PO 600 mg BID JOAN Administration Dextrose/Sodium Chloride 1,000 mls @ 75 mls/hr 06/08/19 13:00 06/09/19 09:02 D5/0.45ns IV 75 mls/hr DIRECT JOAN Administration Levofloxacin 750 mg 06/11/19 10:00 Levaquin PO Q24HR JOAN Lorazepam 2 mg 06/07/19 22:20 06/09/19 16:37 Ativan IV 2 mg Q1H PRN Administration CIWA-Ar 8-15 Lorazepam 4 mg 06/07/19 22:20 Ativan IV Q1H PRN CIWA-Ar 16-25 Lorazepam 4 mg 06/07/19 22:20 Ativan IV Q15MIN PRN CIWA-Ar >25 Melatonin 5 mg 06/09/19 22:00 06/09/19 21:49 Melatonin PO 5 mg QHS JOAN Administration Multivitamins 1 each 06/08/19 19:00 06/10/19 10:08 Theragran Tab PO 1 each QDAY JOAN Administration Olanzapine 10 mg 06/08/19 22:00 06/10/19 10:09 Zyprexa PO 10 mg BID JOAN Administration Ondansetron HCl 4 mg 06/08/19 16:12 Zofran IV Q8H PRN Nausea And Vomiting Pantoprazole Sodium 40 mg 06/09/19 11:00 06/10/19 10:08 Protonix PO 40 mg QDAY JOAN Administration Sodium Chloride 10 ml 06/08/19 22:00 06/10/19 10:09 Sodium Chloride Flush Syringe 10 Ml IV 10 ml BID JOAN Administration Sodium Chloride 10 ml 06/08/19 16:12 Sodium Chloride Flush Syringe 10 Ml IV PRN PRN LINE FLUSH Thiamine HCl 100 mg 06/11/19 10:00 Vitamin B-1 PO QDAY JOAN
[2019-06-10] MEDS: MELATONIN 5 MG TAB PO SCH (22:58)
[2019-06-11 07:23] LABS: Hematocrit 31.4 % (35.5-45.6); Hemoglobin 10.4 gm/dl (11.8-15.2); Mean Corpuscular HGB Conc 33 % (32-34); Mean Corpuscular Volume 89 fl (84-94); Platelet Count 240 K/mm3 (140-440); Red Blood Count 3.53 M/mm3 (3.65-5.03); Red Cell Distribution Width 16.1 % (13.2-15.2)
[2019-06-11 07:36] LABS: BUN/Creatinine Ratio 18; Blood Urea Nitrogen 11 mg/dL (9-20); Calcium 9.1 mg/dL (8.4-10.2); Hemolysis Index 6
--- NOTE | 2019-06-11 08:29 | Progress Note ---
Assessment and Plan - Patient Problems (1) Pneumonia Current Visit: Yes Status: Acute Qualifiers: Pneumonia type: due to unspecified organism Laterality: right Lung location: lower lobe of lung Qualified Code(s): J18.9 - Pneumonia, unspecified organism (2) Cough Current Visit: Yes Status: Acute (3) Suicidal ideations Current Visit: No Status: Acute Subjective Interval history: no new compliants Objective Vital Signs - 12hr 06/10/19 06/10/19 06/10/19 21:00 21:02 21:14 Temperature 98.6 F Pulse Rate 108 H Pulse Rate [ 90 Anterior Left Throughout] Pulse Rate [ 97 H Apical] Pulse Rate [ 97 H From Monitor] Pulse Rate [ 97 H Left Radial] Respiratory 16 Rate Respiratory 18 Rate [Anterior Left Throughout ] Blood Pressure 155/94 Blood Pressure [Left] O2 Sat by Pulse 89 Oximetry 06/10/19 06/10/19 06/11/19 21:18 22:00 00:21 Temperature 98.2 F Pulse Rate 95 H 95 H Pulse Rate [ Anterior Left Throughout] Pulse Rate [ Apical] Pulse Rate [ From Monitor] Pulse Rate [ Left Radial] Respiratory 20 Rate Respiratory Rate [Anterior Left Throughout ] Blood Pressure 140/86 Blood Pressure [Left] O2 Sat by Pulse 96 90 Oximetry 06/11/19 06/11/19 06/11/19 04:49 06:05 07:58 Temperature 98.8 F 98.0 F Pulse Rate 90 83 109 H Pulse Rate [ Anterior Left Throughout] Pulse Rate [ Apical] Pulse Rate [ From Monitor] Pulse Rate [ Left Radial] Respiratory 16 18 20 Rate Respiratory Rate [Anterior Left Throughout ] Blood Pressure 151/101 151/97 Blood Pressure 143/88 [Left] O2 Sat by Pulse 87 99 90 Oximetry Constitutional: no acute distress, alert Eyes: non-icteric ENT: oropharynx moist, oropharynx erythematous Effort: normal Ascultation: Bilateral: diminished breath sounds Cardiovascular: regular rate and rhythm Gastrointestinal: normoactive bowel sounds, soft, non-tender, non-distended Integumentary: normal Extremities: no cyanosis Neurologic: normal mental status, non-focal exam Psychiatric: affect normal, depressed CBC and BMP: 06/11/19 07:00 06/11/19 07:00 ABG, PT/INR, D-dimer: ABG POC ABG pH 7.402 (7.35-7.45) 06/08/19 11:11 POC ABG pCO2 40.9 (35-45) 06/08/19 11:11 POC ABG pO2 59 (80-105) L 06/08/19 11:11 POC ABG HCO3 25.5 (22-26 mml/L) 06/08/19 11:11 POC ABG Total CO2 27 (23-27mmol/L) 06/08/19 11:11 POC ABG O2 Sat 90 06/08/19 11:11 PT/INR, D-dimer PT 13.6 Sec. (12.2-14.9) 06/08/19 10:33 INR 1.05 (0.87-1.13) 06/08/19 10:33 Abnormal lab findings: Abnormal Labs 06/07/19 06/07/19 06/07/19 21:55 21:55 21:55 WBC RBC Hgb Hct RDW APTT POC ABG pO2 Carbon Dioxide 18 L BUN Creatinine Glucose 103 H AST Lipase Salicylates < 0.3 L Acetaminophen < 5.0 L Plasma/Serum Alcohol 06/07/19 06/07/19 06/07/19 21:55 21:55 21:55 WBC RBC Hgb 11.6 L Hct RDW 17.4 H APTT POC ABG pO2 Carbon Dioxide BUN Creatinine Glucose AST 41 H Lipase Salicylates Acetaminophen Plasma/Serum Alcohol 0.19 H 06/08/19 06/08/19 06/08/19 10:22 10:33 11:11 WBC RBC Hgb Hct RDW APTT 21.0 L POC ABG pO2 59 L Carbon Dioxide BUN Creatinine Glucose AST Lipase 10 L Salicylates Acetaminophen Plasma/Serum Alcohol 06/09/19 06/09/19 06/10/19 05:24 06:15 06:40 WBC 11.6 H 12.2 H RBC 3.24 L 3.44 L Hgb 9.5 L 10.0 L Hct 28.7 L D 31.4 L RDW 16.3 H 15.8 H APTT POC ABG pO2 Carbon Dioxide 21 L BUN 8 L Creatinine 0.7 L Glucose 111 H AST Lipase Salicylates Acetaminophen Plasma/Serum Alcohol 06/10/19 06/11/19 06/11/19 06:40 07:00 07:00 WBC 15.9 H RBC 3.53 L Hgb 10.4 L Hct 31.4 L RDW 16.1 H APTT POC ABG pO2 Carbon Dioxide BUN 7 L Creatinine 0.5 L 0.6 L Glucose 146 H 152 H AST Lipase Salicylates Acetaminophen Plasma/Serum Alcohol Chest x-ray: report reviewed, image reviewed
--- NOTE | 2019-06-11 08:45 | XRay Report ---
CHEST 1 VIEW INDICATION / CLINICAL INFORMATION: pneumonia. COMPARISON: 06/08/2019 FINDINGS: SUPPORT DEVICES: None. HEART / MEDIASTINUM: Unchanged LUNGS / PLEURA: Airspace consolidation on the right has improved but has not entirely resolved.. No pneumothorax. ADDITIONAL FINDINGS: No significant additional findings. IMPRESSION: 1. Interval improvement in right airspace consolidation Signer Name: Duc Abdullahi MD Signed: 06/11/2019 8:40 AM Workstation Name: [id number]
[2019-06-11] MEDS ORDERED: THIAMINE 100 MG TAB PO SCH (10:00)
[2019-06-11] MEDS: ARFORMOTEROL 15 MCG/2 ML NEBU IH SCH ×2 (10:26→21:51)
[2019-06-11] MEDS: BUDESONIDE 0.5 MG/2 ML NEBU IH SCH ×2 (10:27→21:52)
[2019-06-11] MEDS: levoFLOXacin 750 MG TAB PO SCH (10:48)
[2019-06-11] MEDS: FLUoxetine 20 MG CAP PO SCH (10:49)
[2019-06-11] MEDS: HYDROcodone/ACETAMINOPHEN 5-325 MG TAB PO PRN ×2 (10:49→18:03)
[2019-06-11] MEDS: FOLIC ACID 1 MG TAB PO SCH (10:49)
[2019-06-11] MEDS: PANTOPRAZOLE 40 MG TAB PO SCH (10:49)
[2019-06-11] MEDS: MULTIVITAMINS ,THERAPEUTIC TAB PO SCH (10:49)
[2019-06-11] MEDS: guaiFENesin ER 600 MG TAB PO SCH ×2 (10:49→21:36)
[2019-06-11] MEDS: THIAMINE 100 MG TAB PO SCH (10:50)
--- NOTE | 2019-06-11 15:01 | Progress Note ---
Assessment and Plan Assessment and plan: Pneumonia right lung Admitted to [facility] Continue Levaquin 750mg iv daily Blood cultures drawn, no growth Alcohol withdrawal syndrome [facility] protocol to manage withdrawal Ativan iv prn Suicidal ideas psych consulted Continue 1013 Sinus tachycardia may be SIRS vs sepsis Blood cultures drawn Polysubstance abuse I counseled him on quitting marijuana, alcohol Full code status History Interval history: Suicidal ideation less shortness of breath Hospitalist Physical - Physical exam Narrative exam: Gen: Not in acute distress, lying in bed HEENT: Normocephalic, atraumatic Neck: supple, no JVD Heart: S1 and S2 reg, no murmurs, rubs or gallop Lungs: Decreased breath sounds right base, no wheezing, Abd: soft, mild tender, no rebound tenderness, non distended, normal BS, Ext: No edema, no clubbing, no cyanosis Neuro: Awake, alert, oriented X 3, - Constitutional Vitals: Temp Pulse Resp BP Pulse Ox 98.0 F 106 H 18 140/51 91 06/11/19 11:40 06/11/19 11:40 06/11/19 11:40 06/11/19 11:40 06/11/19 11:40 Results - Labs CBC & Chem 7: 06/12/19 05:26 06/12/19 05:26 Labs: Laboratory Last Values WBC 15.9 K/mm3 (4.5-11.0) H 06/11/19 07:00 RBC 3.53 M/mm3 (3.65-5.03) L 06/11/19 07:00 Hgb 10.4 gm/dl (11.8-15.2) L 06/11/19 07:00 Hct 31.4 % (35.5-45.6) L 06/11/19 07:00 MCV 89 fl (84-94) 06/11/19 07:00 MCH 29 pg (28-32) 06/11/19 07:00 MCHC 33 % (32-34) 06/11/19 07:00 RDW 16.1 % (13.2-15.2) H 06/11/19 07:00 Plt Count 240 K/mm3 (140-440) 06/11/19 07:00 Lymph % (Auto) Transplant Case Manager 06/09/19 06:15 [place] % (Auto) Transplant Case Manager 06/09/19 06:15 Eos % (Auto) Transplant Case Manager 06/09/19 06:15 Baso % (Auto) Transplant Case Manager 06/09/19 06:15 Lymph # Transplant Case Manager 06/09/19 06:15 [place] # Transplant Case Manager 06/09/19 06:15 Eos # Transplant Case Manager 06/09/19 06:15 Baso # Transplant Case Manager 06/09/19 06:15 Seg Neutrophils % Transplant Case Manager 06/09/19 06:15 Seg Neutrophils # Transplant Case Manager 06/09/19 06:15 PT 13.6 Sec. (12.2-14.9) 06/08/19 10:33 INR 1.05 (0.87-1.13) 06/08/19 10:33 APTT 21.0 Sec. (24.2-36.6) L 06/08/19 10:33 POC ABG pH 7.402 (7.35-7.45) 06/08/19 11:11 POC ABG pCO2 40.9 (35-45) 06/08/19 11:11 POC ABG pO2 59 (80-105) L 06/08/19 11:11 POC ABG HCO3 25.5 (22-26 mml/L) 06/08/19 11:11 POC ABG Total CO2 27 (23-27mmol/L) 06/08/19 11:11 POC ABG O2 Sat 90 06/08/19 11:11 POC ABG Base Excess 1 ((-2) - (+3)mmol/L) 06/08/19 11:11 FiO2 36 % 06/08/19 11:11 Sodium 142 mmol/L (137-145) 06/11/19 07:00 Potassium 3.8 mmol/L (3.6-5.0) D 06/11/19 07:00 Chloride 105.8 mmol/L (98-107) 06/11/19 07:00 Carbon Dioxide 26 mmol/L (22-30) 06/11/19 07:00 Anion Gap 14 mmol/L 06/11/19 07:00 BUN 11 mg/dL (9-20) 06/11/19 07:00 Creatinine 0.6 mg/dL (0.8-1.5) L 06/11/19 07:00 Estimated GFR > 60 ml/min 06/11/19 07:00 BUN/Creatinine Ratio 18 % 06/11/19 07:00 Glucose 152 mg/dL (75-100) H 06/11/19 07:00 Lactic Acid 1.50 mmol/L (0.7-2.0) 06/08/19 10:22 Calcium 9.1 mg/dL (8.4-10.2) 06/11/19 07:00 Magnesium 2.00 mg/dL (1.7-2.3) 06/08/19 10:22 Total Bilirubin 0.20 mg/dL (0.1-1.2) 06/07/19 21:55 Direct Bilirubin < 0.2 mg/dL (0-0.2) 06/07/19 21:55 Indirect Bilirubin 0.0 mg/dL 06/07/19 21:55 AST 41 units/L (5-40) H 06/07/19 21:55 ALT 55 units/L (7-56) 06/07/19 21:55 Alkaline Phosphatase 100 units/L (35-129) 06/07/19 21:55 Troponin T < 0.010 ng/mL (0.00-0.029) 06/09/19 05:24 NT-Pro-B Natriuret Pep 111.0 pg/mL (0-900) 06/08/19 10:22 Total Protein 7.6 g/dL (6.3-8.2) 06/07/19 21:55 Albumin 4.2 g/dL (3.9-5) 06/07/19 21:55 Albumin/Globulin Ratio 1.2 % 06/07/19 21:55 Lipase 10 units/L (13-60) L 06/08/19 10:22 Urine Color Yellow (Yellow) 06/08/19 Unknown Urine Turbidity Hazy (Clear) 06/08/19 Unknown Urine pH 5.0 (5.0-7.0) 06/08/19 Unknown Ur Specific [place] 1.021 (1.003-1.030) 06/08/19 Unknown Urine Protein <15 mg/dl mg/dL (Negative) 06/08/19 Unknown Urine Glucose (UA) Neg mg/dL (Negative) 06/08/19 Unknown Urine Ketones Tr mg/dL (Negative) 06/08/19 Unknown Urine Blood Neg (Negative) 06/08/19 Unknown Urine Nitrite Neg (Negative) 06/08/19 Unknown Urine Bilirubin Neg (Negative) 06/08/19 Unknown Urine Urobilinogen < 2.0 mg/dL (<2.0) 06/08/19 Unknown Ur Leukocyte Esterase Neg (Negative) 06/08/19 Unknown Urine WBC (Auto) 6.0 /HPF (0.0-6.0) 06/08/19 Unknown Urine RBC (Auto) 4.0 /HPF (0.0-6.0) 06/08/19 Unknown U Epithel Cells (Auto) 1.0 /HPF (0-13.0) 06/08/19 Unknown Urine Mucus Few /HPF 06/08/19 Unknown Salicylates < 0.3 mg/dL (2.8-20.0) L 06/07/19 21:55 Urine Opiates Screen Presumptive negative 06/08/19 Unknown Urine Methadone Screen Presumptive positive 06/08/19 Unknown Acetaminophen < 5.0 ug/mL (10.0-30.0) L 06/07/19 21:55 Ur Barbiturates Screen Presumptive positive 06/08/19 Unknown Ur Phencyclidine Scrn Presumptive negative 06/08/19 Unknown Ur Amphetamines Screen Presumptive negative 06/08/19 Unknown U Benzodiazepines Scrn Presumptive negative 06/08/19 Unknown Urine Cocaine Screen Presumptive negative 06/08/19 Unknown U Marijuana (THC) Screen Presumptive positive 06/08/19 Unknown Drugs of Abuse Note Disclamer 06/08/19 Unknown Plasma/Serum Alcohol 0.19 % (0-0.07) H 06/07/19 21:55 Active Medications - Current Medications Current Medications: Generic Name Dose Route Start Last Admin Trade Name Freq PRN Reason Stop Dose Admin Acetaminophen 650 mg 06/08/19 16:12 Tylenol PO Q4H PRN Pain MILD(1-3)/Fever >100.5/MCDANIEL Acetaminophen/Hydrocodone Bitart 1 each 06/08/19 15:00 06/11/19 10:49 [place] 5/325 PO 1 each Q6H PRN Administration Pain, Moderate (4-6) Albuterol 2.5 mg 06/08/19 16:12 Proventil IH Q4HRT PRN Shortness Of Breath Arformoterol Tartrate 15 mcg 06/09/19 11:15 06/11/19 10:26 Brovana Nebu IH 15 mcg Q12HRT JOAN Administration Budesonide 0.5 mg 06/09/19 11:15 06/11/19 10:27 Pulmicort IH 0.5 mg Q12HRT JOAN Administration Fluoxetine HCl 20 mg 06/09/19 10:00 06/11/19 10:49 Prozac PO 20 mg QDAY JOAN Administration Folic Acid 1 mg 06/11/19 10:00 06/11/19 10:49 Folvite PO 1 mg DAILY JOAN Administration Guaifenesin 600 mg 06/09/19 11:00 06/11/19 10:49 Mucinex Er PO 600 mg BID JOAN Administration Dextrose/Sodium Chloride 1,000 mls @ 75 mls/hr 06/08/19 13:00 06/09/19 09:02 D5/0.45ns IV 75 mls/hr DIRECT JOAN Administration Levofloxacin 750 mg 06/11/19 10:00 06/11/19 10:48 Levaquin PO 06/13/19 23:59 750 mg Q24HR JOAN Administration Lorazepam 2 mg 06/07/19 22:20 06/09/19 16:37 Ativan IV 2 mg Q1H PRN Administration CIWA-Ar 8-15 Lorazepam 4 mg 06/07/19 22:20 Ativan IV Q1H PRN CIWA-Ar 16-25 Lorazepam 4 mg 06/07/19 22:20 Ativan IV Q15MIN PRN CIWA-Ar >25 Melatonin 5 mg 06/09/19 22:00 06/10/19 22:58 Melatonin PO 5 mg QHS JOAN Administration Multivitamins 1 each 06/08/19 19:00 06/11/19 10:49 Theragran Tab PO 1 each QDAY JOAN Administration Olanzapine 10 mg 06/08/19 22:00 06/11/19 10:49 Zyprexa PO 10 mg BID JOAN Administration Ondansetron HCl 4 mg 06/08/19 16:12 Zofran IV Q8H PRN Nausea And Vomiting Pantoprazole Sodium 40 mg 06/09/19 11:00 06/11/19 10:49 Protonix PO 40 mg QDAY JOAN Administration Sodium Chloride 10 ml 06/08/19 22:00 06/11/19 10:50 Sodium Chloride Flush Syringe 10 Ml IV 10 ml BID JOAN Administration Sodium Chloride 10 ml 06/08/19 16:12 Sodium Chloride Flush Syringe 10 Ml IV PRN PRN LINE FLUSH Thiamine HCl 100 mg 06/11/19 10:00 06/11/19 10:50 Vitamin B-1 PO 100 mg QDAY JOAN Administration
[2019-06-11] MEDS: ACETAMINOPHEN 325 MG TAB PO PRN (21:35)
[2019-06-11] MEDS: MELATONIN 5 MG TAB PO SCH (21:36)
[2019-06-12 05:58] LABS: Hematocrit 34.1 % (35.5-45.6); Mean Corpuscular HGB Conc 32 % (32-34); Mean Corpuscular Volume 89 fl (84-94); Platelet Count 243 K/mm3 (140-440); Red Blood Count 3.82 M/mm3 (3.65-5.03); Red Cell Distribution Width 15.5 % (13.2-15.2)
[2019-06-12 06:20] LABS: BUN/Creatinine Ratio 14; Blood Urea Nitrogen 10 mg/dL (9-20); Calcium 8.7 mg/dL (8.4-10.2); Hemolysis Index 4
[2019-06-12] MEDS: BUDESONIDE 0.5 MG/2 ML NEBU IH SCH (07:13)
[2019-06-12] MEDS: ARFORMOTEROL 15 MCG/2 ML NEBU IH SCH (07:14)
[2019-06-12] MEDS: HYDROcodone/ACETAMINOPHEN 5-325 MG TAB PO PRN (07:20)
[2019-06-12 08:35] VITALS: BP 144/77
--- NOTE | 2019-06-12 10:38 | Progress Note ---
Assessment and Plan - Patient Problems (1) Pneumonia Current Visit: Yes Status: Acute Qualifiers: Pneumonia type: due to unspecified organism Laterality: right Lung location: lower lobe of lung Qualified Code(s): J18.9 - Pneumonia, unspecified organism (2) Cough Current Visit: Yes Status: Acute (3) Suicidal ideations Current Visit: No Status: Acute Subjective Interval history: better Objective Vital Signs - 12hr 06/11/19 06/12/19 06/12/19 23:19 03:48 07:16 Temperature 99.0 F 98.6 F Pulse Rate 109 H 96 H Pulse Rate [ Anterior Left Throughout] Respiratory 18 18 Rate Respiratory Rate [Anterior Left Throughout ] Blood Pressure 137/77 143/91 O2 Sat by Pulse 94 95 94 Oximetry 06/12/19 06/12/19 06/12/19 07:20 07:51 08:33 Temperature 98.6 F Pulse Rate 99 H Pulse Rate [ 97 H Anterior Left Throughout] Respiratory 18 18 Rate Respiratory 18 Rate [Anterior Left Throughout ] Blood Pressure 144/77 O2 Sat by Pulse 94 Oximetry Constitutional: no acute distress, alert Eyes: non-icteric ENT: oropharynx moist, oropharynx erythematous Effort: normal Ascultation: Bilateral: diminished breath sounds Cardiovascular: regular rate and rhythm Gastrointestinal: normoactive bowel sounds, soft, non-tender, non-distended Integumentary: normal Extremities: no cyanosis Neurologic: normal mental status, non-focal exam Psychiatric: affect normal, depressed CBC and BMP: 06/12/19 05:26 06/12/19 05:26 ABG, PT/INR, D-dimer: ABG POC ABG pH 7.402 (7.35-7.45) 06/08/19 11:11 POC ABG pCO2 40.9 (35-45) 06/08/19 11:11 POC ABG pO2 59 (80-105) L 06/08/19 11:11 POC ABG HCO3 25.5 (22-26 mml/L) 06/08/19 11:11 POC ABG Total CO2 27 (23-27mmol/L) 06/08/19 11:11 POC ABG O2 Sat 90 06/08/19 11:11 PT/INR, D-dimer PT 13.6 Sec. (12.2-14.9) 06/08/19 10:33 INR 1.05 (0.87-1.13) 06/08/19 10:33 Abnormal lab findings: Abnormal Labs 06/07/19 06/07/19 06/07/19 21:55 21:55 21:55 WBC RBC Hgb Hct RDW APTT POC ABG pO2 Carbon Dioxide 18 L BUN Creatinine Glucose 103 H AST Lipase Salicylates < 0.3 L Acetaminophen < 5.0 L Plasma/Serum Alcohol 06/07/19 06/07/19 06/07/19 21:55 21:55 21:55 WBC RBC Hgb 11.6 L Hct RDW 17.4 H APTT POC ABG pO2 Carbon Dioxide BUN Creatinine Glucose AST 41 H Lipase Salicylates Acetaminophen Plasma/Serum Alcohol 0.19 H 06/08/19 06/08/19 06/08/19 10:22 10:33 11:11 WBC RBC Hgb Hct RDW APTT 21.0 L POC ABG pO2 59 L Carbon Dioxide BUN Creatinine Glucose AST Lipase 10 L Salicylates Acetaminophen Plasma/Serum Alcohol 06/09/19 06/09/19 06/10/19 05:24 06:15 06:40 WBC 11.6 H 12.2 H RBC 3.24 L 3.44 L Hgb 9.5 L 10.0 L Hct 28.7 L D 31.4 L RDW 16.3 H 15.8 H APTT POC ABG pO2 Carbon Dioxide 21 L BUN 8 L Creatinine 0.7 L Glucose 111 H AST Lipase Salicylates Acetaminophen Plasma/Serum Alcohol 06/10/19 06/11/19 06/11/19 06:40 07:00 07:00 WBC 15.9 H RBC 3.53 L Hgb 10.4 L Hct 31.4 L RDW 16.1 H APTT POC ABG pO2 Carbon Dioxide BUN 7 L Creatinine 0.5 L 0.6 L Glucose 146 H 152 H AST Lipase Salicylates Acetaminophen Plasma/Serum Alcohol 06/12/19 06/12/19 05:26 05:26 WBC 11.7 H RBC Hgb 11.0 L Hct 34.1 L RDW 15.5 H APTT POC ABG pO2 Carbon Dioxide BUN Creatinine 0.7 L Glucose 103 H AST Lipase Salicylates Acetaminophen Plasma/Serum Alcohol
[2019-06-12] MEDS: levoFLOXacin 750 MG TAB PO SCH (11:34)
[2019-06-12] MEDS: THIAMINE 100 MG TAB PO SCH (11:35)
[2019-06-12] MEDS: MULTIVITAMINS ,THERAPEUTIC TAB PO SCH (11:35)
[2019-06-12] MEDS: ACETAMINOPHEN 325 MG TAB PO PRN (11:35)
[2019-06-12] MEDS: PANTOPRAZOLE 40 MG TAB PO SCH (11:36)
[2019-06-12] MEDS: FOLIC ACID 1 MG TAB PO SCH (11:36)
[2019-06-12] MEDS: guaiFENesin ER 600 MG TAB PO SCH (11:36)
[2019-06-12] MEDS: FLUoxetine 20 MG CAP PO SCH (11:37)
--- NOTE | 2019-06-12 14:04 | Discharge Summary ---
Providers - Providers Date of Admission: 06/08/19 10:23 Date of discharge: 06/12/19 Attending physician: BETTY ESCOBEDO 06/09/19 09:21 Consult to Physician [CONS] Routine Comment: Consulting Provider: FELIPE SAWYER Physician Instructions: Reason For Exam: Pneumonia Primary care physician: BRICK DROPPER Hospitalization Condition: Fair Hospital course: Patient is 53yo with schizophrenia. He presented to ED because of suicidal ideations. He says he has voices telling him to kill himself. He was seen and evaluated in ED, and evaluated by Psych. However he was found to be hypoxic and Chest X ray revealed pneumonia right lower lobe. When I initially saw him, he complained of shortness of breath, cough. He also has tachycardia. He was started on iv Antibiotic, admitted. Pneumonia right lung Admitted to Tele. Managed with Levaquin 750mg iv daily Blood cultures drawn, no growth Sepsis due to pneumonia. Treated with Levaquin Alcohol withdrawal syndrome CIWA protocol used to manage withdrawal Ativan iv prn Suicidal ideas psych consulted, followed during admmission. was initially on 1013, rescinded on 06/10 Polysubstance abuse I counseled him on quitting marijuana, alcohol Total time spent on discharge, 33 mins Disposition: [id number]-01 TO HOME OR SELFCARE - Discharge Diagnoses (1) Sepsis Status: Acute (2) Suicidal ideations Status: Acute (3) Alcohol abuse Status: Acute (4) Alcohol withdrawal Status: Acute (5) Pneumonia Status: Acute Qualifiers: (6) Suicidal ideations Status: Acute Core Measure Documentation - Palliative Care Palliative Care/ Comfort Measures: Not Applicable - Core Measures Any of the following diagnoses?: none Exam - Constitutional Vitals: Temp Pulse Resp BP Pulse Ox 98.6 F 99 H 18 144/77 94 06/12/19 08:33 06/12/19 08:33 06/12/19 08:33 06/12/19 08:33 06/12/19 08:33 Plan Activity: no restrictions Diet: low fat, low cholesterol, low salt Plan of Treatment: 1.Follow up with PCP or [facility] in 1 week. 2.Follow up with [facility] mental Health follow up in 1 week Follow up with: PRIMARY CARE, [Primary Care Provider] - 7 Days Prescriptions: Folic Acid [Folvite] 1 mg PO DAILY #30 tablet levoFLOXacin [Levaquin TAB] 750 mg PO Q24HR #3 tablet Multivitamin Tab [Multiple Vitamin TAB (Theragran)] 1 each PO QDAY #30 tablet Thiamine [Vitamin B-1] 100 mg PO QDAY #30 tablet
== END 2019-06-12 14:10 | disposition home or self-care (01) | DRG 871 ==
LOC: ED 20:47 → IMCU 06-08 10:23 → 4A 06-08 16:27
PROVIDERS: ADMIT Internal Medicine; ATTEND Internal Medicine
PROC: 4A033R1 Measurement of Arterial Saturation, Peripheral, Percutaneous Approach (ICD-10-PCS; principal; 2019-06-08)
DX: A41.9 Sepsis, unspecified organism (principal); J18.9 Pneumonia, unspecified organism; G93.40 Encephalopathy, unspecified; F20.9 Schizophrenia, unspecified; I10 Essential (primary) hypertension; E11.9 Type 2 diabetes mellitus without complications; F17.200 Nicotine dependence, unspecified, uncomplicated; F32.9 Major depressive disorder, single episode, unspecified; F10.10 Alcohol abuse, uncomplicated; F12.10 Cannabis abuse, uncomplicated; Y90.9 Presence of alcohol in blood, level not specified; Z88.0 Allergy status to penicillin; Z71.41 Alcohol abuse counseling and surveillance of alcoholic; Z71.51 Drug abuse counseling and surveillance of drug abuser; Z82.49 Family history of ischemic heart disease and other diseases of the circulatory system; Z79.84 Long term (current) use of oral hypoglycemic drugs
CPT/HCPCS: 36415; 36600; 70450; 71045; 71046; 74177; 80048; 80076; 80307; 80320; 81001; 82140; 82803; 83690; 83735; 83880; 84484; 85025; 85027; 85610; 85730; 87040; 87086; 93005; 93010; 94640; 94760; 96365; G0378; G0480; J1956; J2060; J2185; J2920; J3370; J3411; J7030; J7040

== ENCOUNTER 2019-06-21 01:29 | Emergency (ER) | payer MEDICAID ==
[2019-06-21 06:07] LABS: Basophils % (Auto) 0.7 % (0.0-1.8); Eosinophils # (Auto) 0.1 K/mm3 (0.0-0.4); Eosinophils % (Auto) 1.3 % (0.0-4.3); Hematocrit 31.1 % (35.5-45.6); Hemoglobin 10.3 gm/dl (11.8-15.2); Lymphocytes # (Auto) 1.6 K/mm3 (1.2-5.4); Lymphocytes % (Auto) 27.9 % (13.4-35.0); Mean Corpuscular HGB Conc 33 % (32-34); Mean Corpuscular Volume 89 fl (84-94); Monocytes # (Auto) 0.6 K/mm3 (0.0-0.8); Platelet Count 391 K/mm3 (140-440); Red Blood Count 3.49 M/mm3 (3.65-5.03); Red Cell Distribution Width 14.8 % (13.2-15.2)
[2019-06-21 06:16] LABS: INR 0.9 (0.87-1.13)
[2019-06-21 06:22] LABS: Creatine Kinase MB 1.7 ng/mL (0.0-4.0)
[2019-06-21 06:26] LABS: Alanine Aminotransferase 18 units/L (7-56); Albumin 3.4 g/dL (3.9-5); BUN/Creatinine Ratio 15; Blood Urea Nitrogen 12 mg/dL (9-20); Calcium 9.1 mg/dL (8.4-10.2); Hemolysis Index 1
[2019-06-21] MEDS ORDERED: ONDANSETRON 4 MG/2 ML INJ IV ONE (07:38)
[2019-06-21] MEDS ORDERED: PANTOPRAZOLE 40 MG INJ IV ONE (07:39)
[2019-06-21] MEDS ORDERED: THIAMINE 100 MG, FOLIC ACID 1 MG, MULTIPLE VITAMIN INJ, ADULT 10 ML in SODIUM CHLORIDE ... IV ONE (08:00)
--- NOTE | 2019-06-21 08:06 | XRay Report ---
CHEST 2 VIEWS INDICATION: cp, recent pneumonia. COMPARISON: 06/11/2019 FINDINGS: Support devices: None. Heart: Mild cardiomegaly. Pulmonary vasculature: Normal. Lungs/pleura: Persistent but improved patchy airspace disease of the right lower lobe. The rest the l ungs are clear. No pleural effusion. No pneumothorax. Additional findings: None. IMPRESSION: 1. Right lower lobe pneumonia with improvement since the last exam 2. Cardiomegaly but no CHF. Signer Name: Jones Meza MD Signed: 06/21/2019 8:02 AM Workstation Name: [id number]
[2019-06-21] MEDS ORDERED: levoFLOXacin 750 MG TAB PO ONE (08:59)
--- NOTE | 2019-06-21 09:27 | Emergency Department Report ---
ED Abdominal Pain HPI - General Chief Complaint: Chest Pain Stated Complaint: CHEST PAIN Time Seen by Provider: 06/21/19 06:08 Source: patient Mode of arrival: Ambulatory Limitations: No Limitations - History of Present Illness Initial Comments: 53-year-old male with a past medical history of diabetes, hypertension, alcohol abuse, pancreatitis, esophagitis, hiatal hernia presents to the hospital complaining of epigastric pain radiating to his chest. Also complaining the shortness of breath. States he was recently admitted here for pneumonia. Her medical record review patient had a right lower lobe pneumonia and was discharged on June 12 with 3 days of Levaquin. At this time unclear decided patient filled his medication and complete her course of treatment. No fever reported. Patient complains of nausea, vomiting, and vomiting blood. Denies melena, hematochezia, or fever. History of umbilical hernia repair. Frequent ER visits and hospitalizations. Last alcohol drink was this morning. - Related Data Home Medications Medication Instructions Recorded Confirmed Last Taken OLANzapine [Zyprexa] 10 mg PO BID 01/23/19 06/09/19 Unknown traZODone 200 mg PO QHS 05/17/19 06/09/19 Unknown Previous Rx's Medication Instructions Recorded Last Taken Type FLUoxetine [PROzac] 20 mg PO QAM #30 capsule 01/13/19 Unknown Rx Folic Acid [Folvite] 1 mg PO DAILY #30 tablet 06/12/19 Unknown Rx Multivitamin Tab [Multiple Vitamin 1 each PO QDAY #30 tablet 06/12/19 Unknown Rx TAB (Theragran)] Thiamine [Vitamin B-1] 100 mg PO QDAY #30 tablet 06/12/19 Unknown Rx levoFLOXacin [Levaquin TAB] 750 mg PO Q24HR #3 tablet 06/12/19 Unknown Rx Pantoprazole [Protonix TAB] 20 mg PO QDAY #30 tablet. 06/21/19 Unknown Rx Promethazine [Phenergan] 25 mg PO Q8HR PRN #20 tab 06/21/19 Unknown Rx levoFLOXacin [Levaquin] 750 mg PO QDAY #5 tablet 06/21/19 Unknown Rx Allergies Allergy/AdvReac Type Severity Reaction Status Date / Time Penicillins Allergy Hives Verified 01/01/19 08:47 ED Review of Systems ROS: Stated complaint: CHEST PAIN Other details as noted in HPI Comment: All other systems reviewed and negative ED Past Medical Hx - Past Medical History Previous Medical History?: Yes Hx Hypertension: Yes Hx Congestive Heart Failure: No Hx Diabetes: Yes Hx Psychiatric Treatment: Yes Hx Asthma: No Additional medical history: Umbillical hernia, colon polyps. colaspe lung/ CIRRHOIS, pancreatitis, ETOH abuse, esophagitis, hiatal hernia - Surgical History Past Surgical History?: Yes Additional Surgical History: ankle right surgery, Hernia - Social History Smoking Status: Current Every Day Smoker Substance Use Type: Alcohol - Medications Home Medications: Home Medications Medication Instructions Recorded Confirmed Last Taken Type FLUoxetine [PROzac] 20 mg PO QAM #30 capsule 01/13/19 06/09/19 Unknown Rx OLANzapine [Zyprexa] 10 mg PO BID 01/23/19 06/09/19 Unknown History traZODone 200 mg PO QHS 05/17/19 06/09/19 Unknown History Folic Acid [Folvite] 1 mg PO DAILY #30 tablet 06/12/19 Unknown Rx Multivitamin Tab [Multiple Vitamin 1 each PO QDAY #30 tablet 06/12/19 Unknown Rx TAB (Theragran)] Thiamine [Vitamin B-1] 100 mg PO QDAY #30 tablet 06/12/19 Unknown Rx levoFLOXacin [Levaquin TAB] 750 mg PO Q24HR #3 tablet 06/12/19 Unknown Rx Pantoprazole [Protonix TAB] 20 mg PO QDAY #30 tablet. 06/21/19 Unknown Rx Promethazine [Phenergan] 25 mg PO Q8HR PRN #20 tab 06/21/19 Unknown Rx levoFLOXacin [Levaquin] 750 mg PO QDAY #5 tablet 06/21/19 Unknown Rx ED Physical Exam - General Limitations: No Limitations - Other Other exam information: General: No acute distress Head: Atraumatic Eyes: normal appearance ENT: Moist mucous membranes Neck: Normal appearance, no midline tenderness Chest: Clear to auscultation bilaterally CV: Regular rate and rhythm Abdomen: Soft, normal bowel sounds, epigastric tenderness, midline vertical periumbilical surgical scar, nontender, nondistended, no rebound or guarding Rectal: Guaiac negative brown stool Back: Normal inspection Extremity: Normal inspection infection, full range of motion Neuro: Alert O x 3, no facial asymmetry, speech clear, no gross motor sensory de ficit Psych: Appropriate behavior Skin: No rash ED Course Vital Signs 06/21/19 06/21/19 06/21/19 01:32 06:18 06:30 Temperature 98.5 F Pulse Rate 110 H 87 89 Respiratory 18 18 18 Rate Blood Pressure 136/92 118/77 O2 Sat by Pulse 95 96 96 Oximetry 06/21/19 06/21/19 06/21/19 06:45 07:00 07:15 Temperature Pulse Rate 89 90 90 Respiratory 14 14 13 Rate Blood Pressure 121/75 119/71 115/70 O2 Sat by Pulse 96 96 96 Oximetry 06/21/19 06/21/19 06/21/19 07:30 07:51 08:00 Temperature Pulse Rate 87 92 H Respiratory 16 16 Rate Blood Pressure 121/71 121/71 122/81 O2 Sat by Pulse 96 97 Oximetry 06/21/19 06/21/19 06/21/19 08:15 08:30 08:31 Temperature Pulse Rate 87 Respiratory 17 Rate Blood Pressure 113/53 121/71 O2 Sat by Pulse 96 96 Oximetry 06/21/19 06/21/19 06/21/19 08:45 09:00 09:15 Temperature Pulse Rate 89 Respiratory 15 Rate Blood Pressure 121/71 134/86 128/82 O2 Sat by Pulse 95 95 91 Oximetry 06/21/19 06/21/19 06/21/19 09:30 09:45 10:00 Temperature Pulse Rate 97 H Respiratory 17 Rate Blood Pressure 122/78 127/79 127/77 O2 Sat by Pulse 92 93 92 Oximetry 06/21/19 10:15 Temperature Pulse Rate Respiratory Rate Blood Pressure 126/74 O2 Sat by Pulse 95 Oximetry ED Medical Decision Making - Lab Data Result diagrams: 06/21/19 05:51 06/21/19 05:51 Lab Results 06/21/19 06/21/19 06/21/19 Range/Units 05:51 05:51 05:51 WBC 5.6 (4.5-11.0) K/mm3 RBC 3.49 L (3.65-5.03) M/mm3 Hgb 10.3 L (11.8-15.2) gm/dl Hct 31.1 L (35.5-45.6) % MCV 89 (84-94) fl MCH 30 (28-32) pg MCHC 33 (32-34) % RDW 14.8 (13.2-15.2) % Plt Count 391 (140-440) K/mm3 Lymph % (Auto) 27.9 (13.4-35.0) % [place] % (Auto) 11.0 H (0.0-7.3) % Eos % (Auto) 1.3 (0.0-4.3) % Baso % (Auto) 0.7 (0.0-1.8) % Lymph # 1.6 (1.2-5.4) K/mm3 [place] # 0.6 (0.0-0.8) K/mm3 Eos # 0.1 (0.0-0.4) K/mm3 Baso # 0.0 (0.0-0.1) K/mm3 Seg Neutrophils % 59.1 (40.0-70.0) % Seg Neutrophils # 3.3 (1.8-7.7) K/mm3 PT 12.1 L (12.2-14.9) Sec. INR 0.90 (0.87-1.13) Sodium 140 (137-145) mmol/L Potassium 4.5 (3.6-5.0) mmol/L Chloride 102.4 (98-107) mmol/L Carbon Dioxide 24 (22-30) mmol/L Anion Gap 18 mmol/L BUN 12 (9-20) mg/dL Creatinine 0.8 (0.8-1.5) mg/dL Estimated GFR > 60 ml/min BUN/Creatinine Ratio 15 % Glucose 98 (75-100) mg/dL Calcium 9.1 (8.4-10.2) mg/dL Total Bilirubin 0.20 (0.1-1.2) mg/dL AST 20 (5-40) units/L ALT 18 (7-56) units/L Alkaline Phosphatase 116 (35-129) units/L Total Creatine Kinase 267 H (55-170) units/L CK-MB (CK-2) 1.7 (0.0-4.0) ng/mL CK-MB (CK-2) Rel Index 0.6 (0-4) Troponin T < 0.010 (0.00-0.029) ng/mL Total Protein 6.9 (6.3-8.2) g/dL Albumin 3.4 L (3.9-5) g/dL Albumin/Globulin Ratio 1.0 % Lipase 11 L (13-60) units/L 06/21/19 Range/Units 09:32 WBC (4.5-11.0) K/mm3 RBC (3.65-5.03) M/mm3 Hgb (11.8-15.2) gm/dl Hct (35.5-45.6) % MCV (84-94) fl MCH (28-32) pg MCHC (32-34) % RDW (13.2-15.2) % Plt Count (140-440) K/mm3 Lymph % (Auto) (13.4-35.0) % [place] % (Auto) (0.0-7.3) % Eos % (Auto) (0.0-4.3) % Baso % (Auto) (0.0-1.8) % Lymph # (1.2-5.4) K/mm3 [place] # (0.0-0.8) K/mm3 Eos # (0.0-0.4) K/mm3 Baso # (0.0-0.1) K/mm3 Seg Neutrophils % (40.0-70.0) % Seg Neutrophils # (1.8-7.7) K/mm3 PT (12.2-14.9) Sec. INR (0.87-1.13) Sodium (137-145) mmol/L Potassium (3.6-5.0) mmol/L Chloride (98-107) mmol/L Carbon Dioxide (22-30) mmol/L Anion Gap mmol/L BUN (9-20) mg/dL Creatinine (0.8-1.5) mg/dL Estimated GFR ml/min BUN/Creatinine Ratio % Glucose (75-100) mg/dL Calcium (8.4-10.2) mg/dL Total Bilirubin (0.1-1.2) mg/dL AST (5-40) units/L ALT (7-56) units/L Alkaline Phosphatase (35-129) units/L Total Creatine Kinase (55-170) units/L CK-MB (CK-2) (0.0-4.0) ng/mL CK-MB (CK-2) Rel Index (0-4) Troponin T < 0.010 (0.00-0.029) ng/mL Total Protein (6.3-8.2) g/dL Albumin (3.9-5) g/dL Albumin/Globulin Ratio % Lipase (13-60) units/L - Radiology Data Radiology results: report reviewed CHEST 2 VIEWS INDICATION: cp, recent pneumonia. COMPARISON: 06/11/2019 FINDINGS: Support devices: None. Heart: Mild cardiomegaly. Pulmonary vasculature: Normal. Lungs/pleura: Persistent but improved patchy airspace disease of the right lower lobe. The rest the lungs are clear. No pleural effusion. No pneumothorax. Additional findings: None. IMPRESSION: 1. Right lower lobe pneumonia with improvement since the last exam 2. Cardiomegaly but no CHF. - Medical Decision Making hx of epigastic pain, etoh abuse, hiatial hernia and gastritis continues to use etoh ekg uncahnged x 2, torp neg x 2 tx with banana bag, Zofran, and Protonix No signs of active GI bleed sx improved and gracie po intake at time of dispo Patient has a persistent infiltrate that is improved from previous visit. Compliance is unclear at this time. Received Levaquin in the ED and will be discharged on several days of Levaquin - Differential Diagnosis gastritis, pancreatitis, hiatal hernia, [place] Critical Care Time: No Critical care attestation.: If time is entered above; I have spent that time in minutes in the direct care of this critically ill patient, excluding procedure time. ED Disposition Clinical Impression: Gastritis, Pneumonia, Alcohol abuse Disposition: - TO HOME OR SELFCARE Is pt being admited?: No Condition: Stable Instructions: Community-acquired Pneumonia (ED), Gastritis (ED), Abuse of Alcohol (ED) Additional Instructions: Take the medication as prescribed. Follow-up with your doctor or doctor/clinic provided. Return if symptoms worsen as indicated by your discharge instructions. Prescriptions: levoFLOXacin [Levaquin] 750 mg PO QDAY #5 tablet Promethazine [Phenergan] 25 mg PO Q8HR PRN #20 tab PRN Reason: Nausea Pantoprazole [Protonix TAB] 20 mg PO QDAY #30 tablet. Referrals: PRIMARY CAREMD [Primary Care Provider] - 3-5 Days [facility] [Provider Group] - 3-5 Days Time of Disposition: 11:20
[2019-06-21 12:45] VITALS: BP 153/82
== END 2019-06-21 11:45 | disposition home or self-care (01) ==
LOC: ED 01:29
DX: K29.70 Gastritis, unspecified, without bleeding (principal); J18.9 Pneumonia, unspecified organism; F10.10 Alcohol abuse, uncomplicated; I10 Essential (primary) hypertension; E11.9 Type 2 diabetes mellitus without complications; F17.200 Nicotine dependence, unspecified, uncomplicated; Z98.890 Other specified postprocedural states; Z79.899 Other long term (current) drug therapy; Z88.0 Allergy status to penicillin
CPT/HCPCS: 36415; 71046; 80053; 82271; 82550; 82553; 83690; 84484; 85025; 85610; 93005; 93010; 96365; 96366; 96375; 99284; C9113; J2405; J3411; J7030

== ENCOUNTER 2019-06-24 19:08 | Emergency (ER) | payer MEDICAID ==
--- NOTE | 2019-06-24 20:33 | Event Note ---
ED Screening Note Date of service: 06/24/19 Time: 20:29 ED Screening Note: This is a 53 y.o. M. that presents to the ER with hallucinations and SI. Patient states he stopped taking medicine 2 weeks ago. PMH of schizophrenia, DM2, HTN, and ETOH This initial assessment/diagnostic orders/clinical plan/treatment(s) is/are subject to change based on patients health status, clinical progression and re- assessment by fellow clinical providers in the ED. Further treatment and workup at subsequent clinical providers discretion. Patient/guardian urged not to elope from the ED as their condition may be serious if not clinically assessed and managed. Initial orders include: Labs
[2019-06-24 22:12] LABS: Basophils # (Auto) 0.1 K/mm3 (0.0-0.1); Basophils % (Auto) 0.8 % (0.0-1.8); Eosinophils # (Auto) 0.1 K/mm3 (0.0-0.4); Eosinophils % (Auto) 0.9 % (0.0-4.3); Hematocrit 36.6 % (35.5-45.6); Hemoglobin 12.3 gm/dl (11.8-15.2); Lymphocytes # (Auto) 1.9 K/mm3 (1.2-5.4); Lymphocytes % (Auto) 26.7 % (13.4-35.0); Mean Corpuscular HGB Conc 34 % (32-34); Mean Corpuscular Volume 89 fl (84-94); Monocytes # (Auto) 0.6 K/mm3 (0.0-0.8); Monocytes % (Auto) 8.6 % (0.0-7.3); Platelet Count 617 K/mm3 (140-440); Red Blood Count 4.11 M/mm3 (3.65-5.03); Red Cell Distribution Width 14.7 % (13.2-15.2)
[2019-06-24 22:24] LABS: Bilirubin,Urine NEG (Negative); Blood,Urine NEG (Negative); Color,Urine Straw (Yellow); Protein,Urine <15 mg/dL mg/dL (Negative); Urobilinogen,Urine < 2.0 mg/dL (<2.0); WBC,Urine < 1.0 /HPF (0.0-6.0)
[2019-06-24 22:29] LABS: Amphetamine Screen,Urine PRESUMPTIVE NEGATIVE; Benzodiazepines Screen,Urine PRESUMPTIVE NEGATIVE; Cannabinoid Screen,Urine PRESUMPTIVE NEGATIVE; Cocaine Screen,Urine PRESUMPTIVE NEGATIVE; Methadone Screen,Urine PRESUMPTIVE NEGATIVE; Opiate Screen,Urine PRESUMPTIVE NEGATIVE
[2019-06-24 22:34] LABS: BUN/Creatinine Ratio 9; Blood Urea Nitrogen 8 mg/dL (9-20); Calcium 9.8 mg/dL (8.4-10.2); Hemolysis Index 17
[2019-06-24] MEDS ORDERED: PANTOPRAZOLE 40 MG TAB PO ONE (23:28)
--- NOTE | 2019-06-25 00:05 | Emergency Department Report ---
ED Psych HPI - General Chief Complaint: Psych Stated Complaint: FEELING SUCIDIAL Time Seen by Provider: 06/24/19 20:29 Source: patient Mode of arrival: Ambulatory - History of Present Illness -: Gradual Associated Psychiatric Symptoms: auditory hallucinations History of same: Yes Quality: getting worse Improves With: none Worsens With: none Context: not taking psychiatric Associated Symptoms: denies: confusion, headache, shortness of breath, nausea, vomiting, syncope, insomnia Treatments Prior to Arrival: placed on mental he If Self Harm: admits thoughts of - Related Data Home Medications Medication Instructions Recorded Confirmed Last Taken OLANzapine [Zyprexa] 10 mg PO BID 01/23/19 06/24/19 Unknown traZODone 200 mg PO QHS 05/17/19 06/24/19 Unknown Previous Rx's Medication Instructions Recorded Last Taken Type FLUoxetine [PROzac] 20 mg PO QAM #30 capsule 01/13/19 Unknown Rx Folic Acid [Folvite] 1 mg PO DAILY #30 tablet 06/12/19 Unknown Rx Multivitamin Tab [Multiple Vitamin 1 each PO QDAY #30 tablet 06/12/19 Unknown Rx TAB (Theragran)] Thiamine [Vitamin B-1] 100 mg PO QDAY #30 tablet 06/12/19 Unknown Rx levoFLOXacin [Levaquin TAB] 750 mg PO Q24HR #3 tablet 06/12/19 Unknown Rx Pantoprazole [Protonix TAB] 20 mg PO QDAY #30 tablet. 06/21/19 Unknown Rx Promethazine [Phenergan] 25 mg PO Q8HR PRN #20 tab 06/21/19 Unknown Rx levoFLOXacin [Levaquin] 750 mg PO QDAY #5 tablet 06/21/19 Unknown Rx Allergies Allergy/AdvReac Type Severity Reaction Status Date / Time Penicillins Allergy Hives Verified 01/01/19 08:47 ED Review of Systems ROS: Stated complaint: FEELING SUCIDIAL Other details as noted in HPI Other: GENERAL: No weight change, fatigue, fever, chills, or night sweats SKIN: No changes in skin or hair, no itching, no rashes, no jaundice HEAD: No trauma EYES: No blurriness, tearing, itching, acute visual loss, conjunctival disco loration, or scleral icterus EARS: No hearing loss, tinnitus, vertigo, or earache NOSE: No rhinorrhea, stuffiness, sneezing, itching, or epistaxis MOUTH: No bleeding gums, hoarseness, sore throat, or swelling CARDIAC: No new murmur, chest pain, palpitations, dyspnea on exertion, orthopnea, PND, or edema RESPIRATORY: No shortness of breath, wheeze, cough, sputum production, hemoptysis GI: No abdominal pain, nausea, vomiting, dysphagia, diarrhea, constipation, hematemesis, melena, hematochezia URINARY: No frequency, urgency, polyuria, dysuria, hematuria, or incontinence MUSCULOSKELETAL: No muscle weakness, joint stiffness, decrease in range of motion, redness, swelling NEUROLOGIC: No headache, syncope, loss of sensation, numbness, tingling, tremors, weakness, paralysis, seizures HEMATOLOGIC: No anemia, easy bruising, bleeding, petechiae, or purpura ENDOCRINE: No hot or cold intolerance, sweating, polyuria, polydipsia or, polyphagia no thyroid problems PSYCHIATRIC: Hallucinations, SI. ED Past Medical Hx - Past Medical History Previous Medical History?: Yes Hx Hypertension: Yes Hx Congestive Heart Failure: No Hx Diabetes: Yes Hx Psychiatric Treatment: Yes (Schizophrenia, Paranoid) Hx Asthma: No Additional medical history: Umbillical hernia, colon polyps. colaspe lung/ CIRRHOIS, pancreatitis, ETOH abuse, esophagitis, hiatal hernia - Surgical History Past Surgical History?: Yes Additional Surgical History: ankle right surgery, Hernia - Social History Smoking Status: Never Smoker Substance Use Type: Alcohol - Medications Home Medications: Home Medications Medication Instructions Recorded Confirmed Last Taken Type FLUoxetine [PROzac] 20 mg PO QAM #30 capsule 01/13/19 06/24/19 Unknown Rx OLANzapine [Zyprexa] 10 mg PO BID 01/23/19 06/24/19 Unknown History traZODone 200 mg PO QHS 05/17/19 06/24/19 Unknown History Folic Acid [Folvite] 1 mg PO DAILY #30 tablet 06/12/19 06/24/19 Unknown Rx Multivitamin Tab [Multiple Vitamin 1 each PO QDAY #30 tablet 06/12/19 06/24/19 Unknown Rx TAB (Theragran)] Thiamine [Vitamin B-1] 100 mg PO QDAY #30 tablet 06/12/19 06/24/19 Unknown Rx levoFLOXacin [Levaquin TAB] 750 mg PO Q24HR #3 tablet 06/12/19 06/24/19 Unknown Rx Pantoprazole [Protonix TAB] 20 mg PO QDAY #30 tablet. 06/21/19 06/24/19 Unknown Rx Promethazine [Phenergan] 25 mg PO Q8HR PRN #20 tab 06/21/19 06/24/19 Unknown Rx levoFLOXacin [Levaquin] 750 mg PO QDAY #5 tablet 06/21/19 06/24/19 Unknown Rx ED Physical Exam - General Limitations: No Limitations - Other Other exam information: GENERAL: Patient in no acute distress HEAD: Normocephalic, atraumatic EYES: PERRLA, EOM intact, no scleral icterus, no conjunctival hemorrhage, visual ramirez and acuity wnl NOSE: No tenderness, discharge, sinus tenderness MOUTH: No erythema, bleeding, exudate HEART: Regular rate and rhythm, no murmur, S1-S2 are auscultated, no edema, pulses are symmetric LUNGS: No respiratory distress. Bilateral breath sounds, No tachypnea, No retractions, No wheezing, rales, rhonchi ABDOMEN: Normal bowel sounds, abdomen soft, no tenderness, no rebound, no guarding, no distention, no masses, no CVA tenderness MUSCULOSKELETAL: Normal joint range of motion, no redness, no swelling, no tenderness NEUROLOGIC: GCS 15, Alert and Oriented x3, Cranial nerves intact, normal sensation, normal strength, no cerebellar deficit, NIHSS 0 PSYCHIATRIC: SI. No homicidal no hallucinations SKIN: Skin is warm and dry, no wounds, no rashes ED Medical Decision Making - Lab Data Result diagrams: 06/24/19 21:05 06/24/19 21:05 Laboratory Results - last 24 hr 06/24/19 06/24/19 06/24/19 21:05 21:05 21:05 WBC RBC Hgb Hct MCV MCH MCHC RDW Plt Count Lymph % (Auto) Esmeralda % (Auto) Eos % (Auto) Baso % (Auto) Lymph # Esmeralda # Eos # Baso # Seg Neutrophils % Seg Neutrophils # Sodium 138 Potassium 4.2 Chloride 98.4 Carbon Dioxide 23 Anion Gap 21 BUN 8 L Creatinine 0.9 Estimated GFR > 60 BUN/Creatinine Ratio 9 Glucose 91 Calcium 9.8 Urine Color Urine Turbidity Urine pH Ur Specific [place] Urine Protein Urine Glucose (UA) Urine Ketones Urine Blood Urine Nitrite Urine Bilirubin Urine Urobilinogen Ur Leukocyte Esterase Urine WBC (Auto) Urine RBC (Auto) Salicylates < 0.3 L Urine Opiates Screen Urine Methadone Screen Acetaminophen < 5.0 L Ur Barbiturates Screen Ur Phencyclidine Scrn Ur Amphetamines Screen U Benzodiazepines Scrn Urine Cocaine Screen U Marijuana (THC) Screen Drugs of Abuse Note Plasma/Serum Alcohol 06/24/19 06/24/19 06/24/19 21:05 21:05 22:07 WBC 7.3 RBC 4.11 Hgb 12.3 Hct 36.6 MCV 89 MCH 30 MCHC 34 RDW 14.7 Plt Count 617 H Lymph % (Auto) 26.7 Esmeralda % (Auto) 8.6 H Eos % (Auto) 0.9 Baso % (Auto) 0.8 Lymph # 1.9 Esmeralda # 0.6 Eos # 0.1 Baso # 0.1 Seg Neutrophils % 63.0 Seg Neutrophils # 4.6 Sodium Potassium Chloride Carbon Dioxide Anion Gap BUN Creatinine Estimated GFR BUN/Creatinine Ratio Glucose Calcium Urine Color Straw Urine Turbidity Clear Urine pH 7.0 Ur Specific [place] 1.004 Urine Protein <15 mg/dl Urine Glucose (UA) Neg Urine Ketones Neg Urine Blood Neg Urine Nitrite Neg Urine Bilirubin Neg Urine Urobilinogen < 2.0 Ur Leukocyte Esterase Neg Urine WBC (Auto) < 1.0 Urine RBC (Auto) 1.0 Salicylates Urine Opiates Screen Urine Methadone Screen Acetaminophen Ur Barbiturates Screen Ur Phencyclidine Scrn Ur Amphetamines Screen U Benzodiazepines Scrn Urine Cocaine Screen U Marijuana (THC) Screen Drugs of Abuse Note Plasma/Serum Alcohol 0.11 H 06/24/19 22:07 WBC RBC Hgb Hct MCV MCH MCHC RDW Plt Count Lymph % (Auto) Esmeralda % (Auto) Eos % (Auto) Baso % (Auto) Lymph # Esmeralda # Eos # Baso # Seg Neutrophils % Seg Neutrophils # Sodium Potassium Chloride Carbon Dioxide Anion Gap BUN Creatinine Estimated GFR BUN/Creatinine Ratio Glucose Calcium Urine Color Urine Turbidity Urine pH Ur Specific [place] Urine Protein Urine Glucose (UA) Urine Ketones Urine Blood Urine Nitrite Urine Bilirubin Urine Urobilinogen Ur Leukocyte Esterase Urine WBC (Auto) Urine RBC (Auto) Salicylates Urine Opiates Screen Presumptive negative Urine Methadone Screen Presumptive negative Acetaminophen Ur Barbiturates Screen Presumptive negative Ur Phencyclidine Scrn Presumptive negative Ur Amphetamines Screen Presumptive negative U Benzodiazepines Scrn Presumptive negative Urine Cocaine Screen Presumptive negative U Marijuana (THC) Screen Presumptive negative Drugs of Abuse Note Disclamer Plasma/Serum Alcohol - Medical Decision Making Patient medically clear Critical care attestation.: If time is entered above; I have spent that time in minutes in the direct care of this critically ill patient, excluding procedure time. ED Disposition Clinical Impression: Acute psychosis Disposition: [id number] PSY HOSP/PSY UNIT Is pt being admited?: No Condition: Stable Referrals: LINDA FISHER MD [Primary Care Provider] - 3-5 Days
[2019-06-25 09:09] VITALS: BP 127/87
--- NOTE | 2019-06-25 09:28 | XRay Report ---
CHEST 1 VIEW INDICATION / CLINICAL INFORMATION: hypertension. COMPARISON: 06/21/2019 FINDINGS: SUPPORT DEVICES: None. HEART / MEDIASTINUM: No significant abnormality. LUNGS / PLEURA: Both lungs are well-expanded and clear. Previously noted right lower lobe pneumonia o n the last chest radiograph appears to have completely resolved. No pneumothorax. ADDITIONAL FINDINGS: No significant additional findings. IMPRESSION: 1. No acute finding. Previously noted right lower lobe pneumonia has resolved. Signer Name: Jennifer Shankar MD Signed: 06/25/2019 9:24 AM Workstation Name: [email or web address]
== END 2019-06-25 12:38 | disposition home or self-care (01) ==
LOC: ED 19:08
DX: F23 Brief psychotic disorder (principal); I10 Essential (primary) hypertension; E11.9 Type 2 diabetes mellitus without complications; Z98.890 Other specified postprocedural states; Z79.899 Other long term (current) drug therapy; Z88.0 Allergy status to penicillin
CPT/HCPCS: 36415; 71045; 80048; 80307; 80320; 81001; 85025; G0480

== ENCOUNTER 2019-07-05 22:35 | Emergency (ER) | payer MEDICAID | END 2019-07-06 01:58 | disposition left against medical advice (07) | LOC: ED 22:35 | CPT/HCPCS: 36415; 80053; 81001; 85025 ==

== ENCOUNTER 2019-07-07 07:10 | Emergency (ER) | payer MEDICAID ==
[2019-07-07 07:31] VITALS: BP 153/109
== END 2019-07-07 07:30 | disposition left against medical advice (07) ==
LOC: ED 07:10
DX: R10.9 Unspecified abdominal pain (principal); Z53.21 Procedure and treatment not carried out due to patient leaving prior to being seen by health care provider

== ENCOUNTER 2020-10-10 14:39 | Emergency (ER) | payer MEDICAID ==
[2020-10-10 17:16] LABS: Alanine Aminotransferase 21 units/L (7-56); Albumin 3.5 g/dL (3.9-5); BUN/Creatinine Ratio 6; Blood Urea Nitrogen 5 mg/dL (9-20); Calcium 7.8 mg/dL (8.4-10.2); Hemolysis Index 16
[2020-10-10 17:17] LABS: Hematocrit 32.7 % (35.5-45.6); Hemoglobin 10.2 gm/dl (11.8-15.2); Mean Corpuscular Volume 76 fl (84-94)
[2020-10-10 17:18] LABS: Basophils % (Auto) 0.9 % (0.0-1.8); Eosinophils % (Auto) 0.5 % (0.0-4.3); Lymphocytes % (Auto) 25.3 % (13.4-35.0); Mean Corpuscular HGB Conc 31 % (32-34); Monocytes % (Auto) 15.4 % (0.0-7.3); Platelet Count 196 K/mm3 (140-440); Red Cell Distribution Width 18.6 % (13.2-15.2)
[2020-10-10 17:19] LABS: Lymphocytes # (Auto) 0.9 K/mm3 (1.2-5.4); Monocytes # (Auto) 0.6 K/mm3 (0.0-0.8)
[2020-10-10] MEDS ORDERED: LACTULOSE 20 GM/30 ML ORAL LIQD PO ONE (18:28)
[2020-10-10] MEDS ORDERED: FAMOTIDINE 20 MG/2 ML INJ IV ONE (18:54)
--- NOTE | 2020-10-10 19:12 | Emergency Department Report ---
<LAKSHMI NICOLE - Last Filed: 10/10/20 19:52> ED Alcohol HPI - General Chief Complaint: Alcohol Stated Complaint: ETOH Time Seen by Provider: 10/10/20 16:11 Source: patient, EMS Mode of arrival: Ambulatory Limitations: Other - History of Present Illness Initial Comments: 54-year-old male with a past medical history of alcohol abuse, diabetes, hypertension, schizophrenia, and pancreatitis, hiatal hernia, esophagitis is brought into the hospital by EMS after they were called for patient being asleep and enlargement. Police Department would not take patient to long term and called EMS instead who brought patient to the hospital. Patient is a known alcoholic. Patient pain was alert and complaining of abdominal pain upon arrival. At time my evaluation he is sleeping and requires aggressive tactile stimulation for arousal but does not appear to be in any acute distress - Related Data Home Medications Medication Instructions Recorded Confirmed Last Taken OLANzapine [Zyprexa] 10 mg PO BID 01/23/19 07/13/19 Unknown traZODone 150 mg PO QHS 05/17/19 07/13/19 Unknown Previous Rx's Medication Instructions Recorded Last Taken Type FLUoxetine [PROzac] 20 mg PO QAM #30 capsule 01/13/19 Unknown Rx Multivitamin with Folic Acid [[facility] 400 mcg PO QDAY #30 tablet 10/10/20 Unknown Rx One Daily Essential Tablet] chlordiazePOXIDE [Librium] 25 mg PO Q6H PRN #25 capsule 10/10/20 Unknown Rx Allergies Allergy/AdvReac Type Severity Reaction Status Date / Time Penicillins Allergy Hives Verified 01/01/19 08:47 ED Review of Systems Comment: All other systems reviewed and negative ED Past Medical Hx - Past Medical History Previous Medical History?: Yes Hx Hypertension: Yes Hx Congestive Heart Failure: No Hx Diabetes: Yes Hx Psychiatric Treatment: Yes (Schizophrenia, Paranoid) Hx Asthma: No Additional medical history: Umbillical hernia, colon polyps. colaspe lung/ CIRRHOIS, pancreatitis, ETOH abuse, esophagitis, hiatal hernia - Surgical History Past Surgical History?: Yes Additional Surgical History: ankle right surgery, Hernia - Social History Smoking Status: Current Every Day Smoker Substance Use Type: Alcohol - Medications Home Medications: Home Medications Medication Instructions Recorded Confirmed Last Taken Type FLUoxetine [PROzac] 20 mg PO QAM #30 capsule 01/13/19 07/13/19 Unknown Rx OLANzapine [Zyprexa] 10 mg PO BID 01/23/19 07/13/19 Unknown History traZODone 150 mg PO QHS 05/17/19 07/13/19 Unknown History Multivitamin with Folic Acid [[facility] 400 mcg PO QDAY #30 tablet 10/10/20 Unknown Rx One Daily Essential Tablet] chlordiazePOXIDE [Librium] 25 mg PO Q6H PRN #25 capsule 10/10/20 Unknown Rx ED Physical Exam - General Limitations: Other - Other Other exam information: General: No acute distress Head: Atraumatic Eyes: normal appearance ENT: Moist mucous membranes Neck: Normal appearance, no midline tenderness Chest: Clear to auscultation bilaterally CV: Regular rate and rhythm Abdomen: Soft, normal bowel sounds, nontender, nondistended, no rebound or guarding Back: Normal inspection Extremity: Normal inspection, full range of motion Neuro: Drowsy/lethargic requires aggressive tactile stimulation for arousal, no facial asymmetry, speech clear, no gross motor sensory deficit Psych: Appropriate behavior Skin: No rash ED Course - Reevaluation(s) Reevaluation #1: 10/10/20 19:11 Patient now alert and awake requesting pain medication for abdominal pain labs unremarkable with exception of mild anemia elevated ammonia level and acute alcohol intoxication. Patient will be scanned CT head and abdomen prior to lactulose administration. IV Pepcid ordered 10/10/20 19:12 10/10/20 19:52 case s/o to Dr espinoza, f/u ct head/abd pelvis. Lactulosis if ct abd/pelvis ok, d/c when clinically sober and improved mental status if no acute pathology identified. ED Medical Decision Making - Lab Data Result diagrams: 10/10/20 16:33 10/10/20 16:33 ED Disposition Clinical Impression: Alcohol abuse Alcohol intoxication Qualifiers: Complication of substance-induced condition: uncomplicated Qualified Code(s): F10.920 - Alcohol use, unspecified with intoxication, uncomplicated Abdominal pain Qualifiers: Abdominal location: generalized Qualified Code(s): R10.84 - Generalized abdominal pain Disposition: - TO HOME OR SELFCARE Condition: Good Instructions: Alcohol Abuse and Dependence Information, Adult Additional Instructions: Do not drive or operate motor vehicles for the next 6 months, or until cleared to do so by a primary care doctor. We recommend that the patient follow-up with a primary care doctor within the next week. We recommend that the patient avoid consumption of alcohol, Motrin, ibuprofen, Naprosyn, Aleve. Patient may take [id number] Pepcid, Protonix, or claudette taminophen as needed for pain. Advance diet as tolerated. Take the Librium medication as needed for sensation of alcohol withdrawal. Patient may also follow-up at [facility] as an outpatient for alcohol withdrawal and detox, if he so desires. Take the multivitamin on a daily basis. Please return to the emergency room right away with new pain, worsened pain, migration of pain, projectile vomiting, change in mental status, confusion, inability to tolerate liquid feeds, new, worsened or different symptoms not present on the initial emergency room evaluation. Referrals: [facility] [Provider Group] - 3-5 Days <BETTY ESPINOZA - Last Filed: 10/10/20 22:35> ED Review of Systems ROS: Stated complaint: ETOH Other details as noted in HPI ED Course Vital Signs 10/10/20 10/10/20 10/10/20 15:18 15:24 19:16 Temperature 97.7 F Pulse Rate 88 98 H Respiratory 18 16 20 Rate Blood Pressure Blood Pressure 113/73 [Right] O2 Sat by Pulse 96 98 93 Oximetry 10/10/20 10/10/20 10/10/20 19:46 20:16 20:48 Temperature Pulse Rate 107 H 106 H 100 H Respiratory 20 17 21 Rate Blood Pressure 142/85 133/67 143/74 Blood Pressure [Right] O2 Sat by Pulse 97 99 Oximetry 10/10/20 10/10/20 21:00 21:30 Temperature Pulse Rate 108 H 95 H Respiratory 19 14 Rate Blood Pressure 117/73 Blood Pressure [Right] O2 Sat by Pulse Oximetry - Reevaluation(s) Reevaluation #1: 10/10/20 22:33 The patient is ambulatory with a steady gait. He is in no acute distress. No active vomiting. He is able to make his needs known. He is resting comfortably in stretcher at this time, he does not appear to be in any acute distress. I have evaluated this patient in the past. He is not currently tachycardic and he has no tongue fasciculations. He has not made any complaints of homicidality or suicidality. He appears to be clinically sober at this time. CT scan brain negative for acute findings. CT scan abdomen pelvis shows chronic findings. ED Medical Decision Making - Lab Data Result diagrams: 10/10/20 16:33 10/10/20 16:33 Vital Signs 10/10/20 10/10/20 10/10/20 15:18 15:24 19:16 Temperature 97.7 F Pulse Rate 88 98 H Respiratory 18 16 20 Rate Blood Pressure Blood Pressure 113/73 [Right] O2 Sat by Pulse 96 98 93 Oximetry 10/10/20 10/10/20 10/10/20 19:46 20:16 20:48 Temperature Pulse Rate 107 H 106 H 100 H Respiratory 20 17 21 Rate Blood Pressure 142/85 133/67 143/74 Blood Pressure [Right] O2 Sat by Pulse 97 99 Oximetry 10/10/20 10/10/20 21:00 21:30 Temperature Pulse Rate 108 H 95 H Respiratory 19 14 Rate Blood Pressure 117/73 Blood Pressure [Right] O2 Sat by Pulse Oximetry Lab Results 10/10/20 10/10/20 10/10/20 Range/Units 16:33 16:33 16:33 WBC 3.7 L (4.5-11.0) K/mm3 RBC 4.30 (3.65-5.03) M/mm3 Hgb 10.2 L (11.8-15.2) gm/dl Hct 32.7 L (35.5-45.6) % MCV 76 L (84-94) fl MCH 24 L (28-32) pg MCHC 31 L (32-34) % RDW 18.6 H (13.2-15.2) % Plt Count 196 (140-440) K/mm3 Lymph % (Auto) 25.3 (13.4-35.0) % Reagan % (Auto) 15.4 H (0.0-7.3) % Eos % (Auto) 0.5 (0.0-4.3) % Baso % (Auto) 0.9 (0.0-1.8) % Lymph # (Auto) 0.9 L (1.2-5.4) K/mm3 Reagan # (Auto) 0.6 (0.0-0.8) K/mm3 Eos # (Auto) 0.0 (0.0-0.4) K/mm3 Baso # (Auto) 0.0 (0.0-0.1) K/mm3 Seg Neutrophils % 57.9 (40.0-70.0) % Seg Neutrophils # 2.1 (1.8-7.7) K/mm3 Sodium 142 (137-145) mmol/L Potassium 3.7 (3.6-5.0) mmol/L Chloride 104.7 (98-107) mmol/L Carbon Dioxide 24 (22-30) mmol/L Anion Gap 17 mmol/L BUN 5 L (9-20) mg/dL Creatinine 0.8 (0.8-1.3) mg/dL Estimated GFR > 60 ml/min BUN/Creatinine Ratio 6 % Glucose 109 H (75-100) mg/dL Calcium 7.8 L (8.4-10.2) mg/dL Magnesium 2.20 (1.7-2.3) mg/dL Total Bilirubin 0.20 (0.1-1.2) mg/dL AST 33 (5-40) units/L ALT 21 (7-56) units/L Alkaline Phosphatase 90 (35-129) units/L Ammonia 71.0 H (25-60) umol/L Total Protein 6.2 L (6.3-8.2) g/dL Albumin 3.5 L (3.9-5) g/dL Albumin/Globulin Ratio 1.3 % Lipase 15 (13-60) units/L Plasma/Serum Alcohol (0-0.07) % // Range/Units 16:33 WBC (4.5-11.0) K/mm3 RBC (3.65-5.03) M/mm3 Hgb (11.8-15.2) gm/dl Hct (35.5-45.6) % MCV (84-94) fl MCH (28-32) pg MCHC (32-34) % RDW (13.2-15.2) % Plt Count (140-440) K/mm3 Lymph % (Auto) (13.4-35.0) % Reagan % (Auto) (0.0-7.3) % Eos % (Auto) (0.0-4.3) % Baso % (Auto) (0.0-1.8) % Lymph # (Auto) (1.2-5.4) K/mm3 Reagan # (Auto) (0.0-0.8) K/mm3 Eos # (Auto) (0.0-0.4) K/mm3 Baso # (Auto) (0.0-0.1) K/mm3 Seg Neutrophils % (40.0-70.0) % Seg Neutrophils # (1.8-7.7) K/mm3 Sodium (137-145) mmol/L Potassium (3.6-5.0) mmol/L Chloride (98-107) mmol/L Carbon Dioxide (22-30) mmol/L Anion Gap mmol/L BUN (9-20) mg/dL Creatinine (0.8-1.3) mg/dL Estimated GFR ml/min BUN/Creatinine Ratio % Glucose (75-100) mg/dL Calcium (8.4-10.2) mg/dL Magnesium (1.7-2.3) mg/dL Total Bilirubin (0.1-1.2) mg/dL AST (5-40) units/L ALT (7-56) units/L Alkaline Phosphatase (35-129) units/L Ammonia (25-60) umol/L Total Protein (6.3-8.2) g/dL Albumin (3.9-5) g/dL Albumin/Globulin Ratio % Lipase (13-60) units/L Plasma/Serum Alcohol 0.29 H (0-0.07) % - Radiology Data Radiology results: report reviewed, image reviewed CT head/brain wo con INDICATION: Drowsiness. TECHNIQUE: Routine CT head without contrast. All CT scans at this location are performed using CT dose reduction for ALARA by means of automated exposure control. COMPARISON: Head CT on 06/08/2019 FINDINGS: BRAIN / INTRACRANIAL CONTENTS: No acute hemorrhage, mass effect, midline shift, or hydrocephalus. No appreciable acute large territorial or lacunar infarct. No chronic infarct or focal atrophy. Normal brain volume and ventricular/sulcal size for age. ORBITS: No significant abn ormality of visualized orbits. SINUSES / MASTOIDS: No significant abnormality of visualized sinuses and mastoid air cells. ADDITIONAL FINDINGS: None. IMPRESSION: 1. No acute intracranial abnormality. Signer Name: Jimy Luis MD Signed: 10/10/2020 6:[address] abdomen pelvis wo con INDICATION / CLINICAL INFORMATION: ABD PAIN, ETOH ABUSE. TECHNIQUE: Routine CT abdomen pelvis without contrast All CT scans at this location are performed using CT dose reduction for ALARA by means of automated exposure control. COMPARISON: 06/08/2019 FINDINGS: Abdomen and pelvis: The lower lungs are clear. The liver, gallbladder, spleen, pancreas adrenal glands and kidneys appear unchanged. Several fat-containing ventral abdominal hernias are again noted. There is evidence of prior ventral abdominal hernia repair. These fat-containing hernias are seen just superior to the ventral abdominal hernia repair. The appendix is unremarkable. No free air or free fluid. Urinary bladder is partially fluid distended. No free pelvic fluid identified. Multiple pelvic phleboliths are present. Review of bone windows demonstrates mild degenerative changes of the lower lumbar spine. IMPRESSION: 1. Moderate type one hiatal hernia. Mild thickening involving the distal thoracic esophagus which could be seen with esophagitis. 2. Multiple fat- containing ventral abdominal hernia seen just above the ventral abdominal wall hernia repair. Signer Name: Jt Cavanaugh MD Signed: 10/10/2020 6:55 PM Critical care attestation.: If time is entered above; I have spent that time in minutes in the direct care of this critically ill patient, excluding procedure time. ED Disposition Is pt being admited?: No Does the pt Need Aspirin: No
--- NOTE | 2020-10-10 20:15 | Cat Scan Report ---
CT head/brain wo con INDICATION: Drowsiness. TECHNIQUE: Routine CT head without contrast. All CT scans at this location are performed using CT dos e reduction for ALARA by means of automated exposure control. COMPARISON: Head CT on 06/08/2019 FINDINGS: BRAIN / INTRACRANIAL CONTENTS: No acute hemorrhage, mass effect, midline shift, or hydrocephalus. No appreciable acute large territorial or lacunar infarct. No chronic infarct or focal atrophy. Normal b rain volume and ventricular/sulcal size for age. ORBITS: No significant abnormality of visualized orbits. SINUSES / MASTOIDS: No significant abnormality of visualized sinuses and mastoid air cells. ADDITIONAL FINDINGS: None. IMPRESSION: 1. No acute intracranial abnormality. Signer Name: Jimy Luis MD Signed: 10/10/2020 7:41 PM Workstation Name: [id number]
--- NOTE | 2020-10-10 20:16 | Cat Scan Report ---
CT abdomen pelvis wo con INDICATION / CLINICAL INFORMATION: ABD PAIN, ETOH ABUSE. TECHNIQUE: Routine CT abdomen pelvis without contrast All CT scans at this location are performed using CT dose reduction for ALARA by means of automated exposure control. COMPARISON: 06/08/2019 FINDINGS: Abdomen and pelvis: The lower lungs are clear. The liver, gallbladder, spleen, pancreas adrenal gland s and kidneys appear unchanged. Several fat-containing ventral abdominal hernias are again noted. The re is evidence of prior ventral abdominal hernia repair. These fat-containing hernias are seen just s uperior to the ventral abdominal hernia repair. The appendix is unremarkable. No free air or free flu id. Urinary bladder is partially fluid distended. No free pelvic fluid identified. Multiple pelvic ph leboliths are present. Review of bone windows demonstrates mild degenerative changes of the lower lum bar spine. IMPRESSION: 1. Moderate type one hiatal hernia. Mild thickening involving the distal thoracic esophagus which cou ld be seen with esophagitis. 2. Multiple fat-containing ventral abdominal hernia seen just above the ventral abdominal wall hernia repair. Signer Name: Jt Cavanaugh MD Signed: 10/10/2020 7:55 PM Workstation Name: [id number]
[2020-10-10 21:10] VITALS: BP 117/73
== END 2020-10-10 22:52 | disposition home or self-care (01) ==
LOC: ED 14:39
DX: F10.129 Alcohol abuse with intoxication, unspecified (principal); R10.9 Unspecified abdominal pain; R51.9 Headache, unspecified; I10 Essential (primary) hypertension; E11.9 Type 2 diabetes mellitus without complications; F20.9 Schizophrenia, unspecified; F17.200 Nicotine dependence, unspecified, uncomplicated; Z98.890 Other specified postprocedural states; Z79.899 Other long term (current) drug therapy; Z88.0 Allergy status to penicillin
CPT/HCPCS: 36415; 70450; 74176; 80053; 80320; 82140; 83690; 83735; 85025; 96374; G0480

== ENCOUNTER 2020-10-11 00:13 | Emergency (ER) | payer MEDICAID ==
[2020-10-11 01:31] LABS: Mean Corpuscular HGB Conc 30 % (32-34); Mean Corpuscular Volume 75 fl (84-94); Platelet Count 225 K/mm3 (140-440); Red Blood Count 4.52 M/mm3 (3.65-5.03); Red Cell Distribution Width 19.1 % (13.2-15.2)
[2020-10-11] MEDS ORDERED: chlordiazePOXIDE 25 MG CAP PO PRN ×2 (01:32)
[2020-10-11 01:38] LABS: Hemoglobin 10.3 gm/dl (11.8-15.2)
[2020-10-11 01:40] LABS: BUN/Creatinine Ratio 8; Blood Urea Nitrogen 6 mg/dL (9-20); Calcium 8.4 mg/dL (8.4-10.2); Hemolysis Index 1
--- NOTE | 2020-10-11 01:56 | Emergency Department Report ---
HPI - General Chief Complaint: Psych Time Seen by Provider: 10/11/20 01:18 - HPI HPI: This is a 54-year-old -Nepalese male presents to the emergency department with a complaint of suicidal ideations and auditory hallucinations. The patient has a history of schizophrenia, EtOH abuse and dependence, liver cirrhosis, pancreatitis, esophagitis, hiatal hernia and hypertension. The patient was just seen here earlier today for alcohol intoxication and abdominal pains. The patient was given a full evaluation including a CT scan of the abdomen and pelvis and was discharged this evening after he appeared clinically sober. The patient says that he left the hospital but that he began having increased auditory hallucinations and suicidal ideations and came back to the emergency department for a psychiatric evaluation. The patient says that he has the plan to either jump in front of a car or jump off of a bridge to kill himself. He denies that he left the hospital and began drinking. He says that he has been without his medications for the past 2 weeks. ED Past Medical Hx - Past Medical History Previous Medical History?: Yes Hx Hypertension: Yes Hx Congestive Heart Failure: No Hx Diabetes: Yes Hx Psychiatric Treatment: Yes (Schizophrenia, Paranoid) Hx Asthma: No Additional medical history: Umbillical hernia, colon polyps. colaspe lung/ CIRRHOIS, pancreatitis, ETOH abuse, esophagitis, hiatal hernia - Surgical History Past Surgical History?: Yes Additional Surgical History: ankle right surgery, Hernia - Social History Smoking Status: Never Smoker Substance Use Type: Alcohol - Medications Home Medications: Home Medications Medication Instructions Recorded Confirmed Last Taken Type FLUoxetine [PROzac] 20 mg PO QAM #30 capsule 01/13/19 10/11/20 Unknown Rx OLANzapine [Zyprexa] 10 mg PO BID 01/23/19 10/11/20 Unknown History traZODone 150 mg PO QHS 05/17/19 10/11/20 Unknown History Multivitamin with Folic Acid [[facility] 400 mcg PO QDAY #30 tablet 10/10/20 10/11/20 Unknown Rx One Daily Essential Tablet] chlordiazePOXIDE [Librium] 25 mg PO Q6H PRN #25 capsule 10/10/20 10/11/20 Unknown Rx Quetiapine Fumarate [SEROquel] 600 mg PO QHS 10/11/20 10/11/20 Unknown History ED Review of Systems ROS: Stated complaint: SUICIDAL/MH EVAL Other details as noted in HPI Comment: All other systems reviewed and negative Constitutional: denies: chills, fever Eyes: denies: eye pain, vision change ENT: denies: ear pain, throat pain Respiratory: denies: cough, shortness of breath Cardiovascular: denies: chest pain, palpitations Gastrointestinal: abdominal pain, nausea. denies: vomiting Genitourinary: denies: dysuria, discharge Musculoskeletal: denies: back pain, arthralgia Skin: denies: rash, lesions Neurological: denies: headache, weakness Psychiatric: auditory hallucinations, suicidal thoughts. denies: homicidal thoughts Physical Exam - Physical Exam Vital Signs: Vital Signs 10/11/20 00:26 Temperature 98.2 F Pulse Rate 110 H Respiratory 18 Rate Blood Pressure 143/94 O2 Sat by Pulse 96 Oximetry Physical Exam: GENERAL: The patient is well-developed well-nourished. HENT: Normocephalic. Atraumatic. Patient has moist mucous membranes. EYES: Extraocular motions are intact. NECK: Supple. Trachea is midline. CHEST/LUNGS: Clear to auscultation. There is no respiratory distress noted. HEART/CARDIOVASCULAR: Regular. There is no tachycardia. There is no murmur. ABDOMEN: Abdomen is soft, nontender. Patient has normal bowel sounds. There is no abdominal distention. SKIN: Skin is warm and dry. NEURO: The patient is awake, alert, and oriented. The patient is cooperative. The patient has no focal neurologic deficits. Normal speech. MUSCULOSKELETAL: There is no tenderness or deformity. There is no limitation range of motion. ED Course Vital Signs 10/11/20 00:26 Temperature 98.2 F Pulse Rate 110 H Respiratory 18 Rate Blood Pressure 143/94 O2 Sat by Pulse 96 Oximetry ED Medical Decision Making - Lab Data Result diagrams: 10/11/20 00:39 10/11/20 00:39 Lab Results 10/11/20 10/11/20 10/11/20 Range/Units 00:39 00:39 00:39 WBC (4.5-11.0) K/mm3 RBC (3.65-5.03) M/mm3 Hgb (11.8-15.2) gm/dl Hct (35.5-45.6) % MCV (84-94) fl MCH (28-32) pg MCHC (32-34) % RDW (13.2-15.2) % Plt Count (140-440) K/mm3 [place] % (Auto) Sodium 144 (137-145) mmol/L Potassium 3.8 (3.6-5.0) mmol/L Chloride 105.7 (98-107) mmol/L Carbon Dioxide 27 (22-30) mmol/L Anion Gap 15 mmol/L BUN 6 L (9-20) mg/dL Creatinine 0.8 (0.8-1.3) mg/dL Estimated GFR > 60 ml/min BUN/Creatinine Ratio 8 % Glucose 112 H (75-100) mg/dL Calcium 8.4 (8.4-10.2) mg/dL Urine Color (Yellow) Urine Turbidity (Clear) Urine pH (5.0-7.0) Ur Specific [place] (1.003-1.030) Urine Protein (Negative) mg/dL Urine Glucose (UA) (Negative) mg/dL Urine Ketones (Negative) mg/dL Urine Blood (Negative) Urine Nitrite (Negative) Urine Bilirubin (Negative) Urine Urobilinogen (<2.0) mg/dL Ur Leukocyte Esterase (Negative) Urine WBC (Auto) (0.0-6.0) /HPF Urine RBC (Auto) (0.0-6.0) /HPF Urine Yeast (Budding) /HPF Salicylates < 0.3 L (2.8-20.0) mg/dL Urine Opiates Screen Urine Methadone Screen Acetaminophen 5.0 L (10.0-30.0) ug/mL Ur Barbiturates Screen Ur Phencyclidine Scrn Ur Amphetamines Screen U Benzodiazepines Scrn Urine Cocaine Screen U Marijuana (THC) Screen Drugs of Abuse Note Plasma/Serum Alcohol (0-0.07) % 10/11/20 10/11/20 10/11/20 Range/Units 00:39 00:39 01:55 WBC 3.7 L (4.5-11.0) K/mm3 RBC 4.52 (3.65-5.03) M/mm3 Hgb 10.3 L (11.8-15.2) gm/dl Hct 34.0 L (35.5-45.6) % MCV 75 L (84-94) fl MCH 23 L (28-32) pg MCHC 30 L (32-34) % RDW 19.1 H (13.2-15.2) % Plt Count 225 (140-440) K/mm3 [place] % (Auto) Appellate Court Judge Sodium (137-145) mmol/L Potassium (3.6-5.0) mmol/L Chloride (98-107) mmol/L Carbon Dioxide (22-30) mmol/L Anion Gap mmol/L BUN (9-20) mg/dL Creatinine (0.8-1.3) mg/dL Estimated GFR ml/min BUN/Creatinine Ratio % Glucose (75-100) mg/dL Calcium (8.4-10.2) mg/dL Urine Color Yellow (Yellow) Urine Turbidity Clear (Clear) Urine pH 6.0 (5.0-7.0) Ur Specific [place] 1.020 (1.003-1.030) Urine Protein <15 mg/dl (Negative) mg/dL Urine Glucose (UA) 50 (Negative) mg/dL Urine Ketones Neg (Negative) mg/dL Urine Blood Neg (Negative) Urine Nitrite Neg (Negative) Urine Bilirubin Neg (Negative) Urine Urobilinogen 2.0 (<2.0) mg/dL Ur Leukocyte Esterase Neg (Negative) Urine WBC (Auto) 6.0 (0.0-6.0) /HPF Urine RBC (Auto) 1.0 (0.0-6.0) /HPF Urine Yeast (Budding) Few /HPF Salicylates (2.8-20.0) mg/dL Urine Opiates Screen Urine Methadone Screen Acetaminophen (10.0-30.0) ug/mL Ur Barbiturates Screen Ur Phencyclidine Scrn Ur Amphetamines Screen U Benzodiazepines Scrn Urine Cocaine Screen U Marijuana (THC) Screen Drugs of Abuse Note Plasma/Serum Alcohol 0.20 H (0-0.07) % 10/11/20 Range/Units 01:55 WBC (4.5-11.0) K/mm3 RBC (3.65-5.03) M/mm3 Hgb (11.8-15.2) gm/dl Hct (35.5-45.6) % MCV (84-94) fl MCH (28-32) pg MCHC (32-34) % RDW (13.2-15.2) % Plt Count (140-440) K/mm3 [place] % (Auto) Sodium (137-145) mmol/L Potassium (3.6-5.0) mmol/L Chloride (98-107) mmol/L Carbon Dioxide (22-30) mmol/L Anion Gap mmol/L BUN (9-20) mg/dL Creatinine (0.8-1.3) mg/dL Estimated GFR ml/min BUN/Creatinine Ratio % Glucose (75-100) mg/dL Calcium (8.4-10.2) mg/dL Urine Color (Yellow) Urine Turbidity (Clear) Urine pH (5.0-7.0) Ur Specific [place] (1.003-1.030) Urine Protein (Negative) mg/dL Urine Glucose (UA) (Negative) mg/dL Urine Ketones (Negative) mg/dL Urine Blood (Negative) Urine Nitrite (Negative) Urine Bilirubin (Negative) Urine Urobilinogen (<2.0) mg/dL Ur Leukocyte Esterase (Negative) Urine WBC (Auto) (0.0-6.0) /HPF Urine RBC (Auto) (0.0-6.0) /HPF Urine Yeast (Budding) /HPF Salicylates (2.8-20.0) mg/dL Urine Opiates Screen Presumptive negative Urine Methadone Screen Presumptive negative Acetaminophen (10.0-30.0) ug/mL Ur Barbiturates Screen Presumptive negative Ur Phencyclidine Scrn Presumptive negative Ur Amphetamines Screen Presumptive negative U Benzodiazepines Scrn Presumptive negative Urine Cocaine Screen Presumptive negative U Marijuana (THC) Screen Presumptive negative Drugs of Abuse Note Disclamer Plasma/Serum Alcohol (0-0.07) % - Medical Decision Making This patient presents to the emergency department with a complaint of auditory hallucinations and suicidal ideations. For this reason the patient has been made a 1013. The patient was recently just here earlier in the day for alcohol intoxication. Although he says he did not go and drink alcohol in the interim, between the 2 visits, I suspect that he did as his blood alcohol level is back up to 0.2. However the patient is oriented, calm and cooperative. He has a history of alcohol dependence and withdrawal issues so the patient was placed on CIWA protocol. The rest of his labs have been mostly unremarkable including CBC, metabolic panel, urinalysis and UDS. Vital signs have been reassuring throughout his ED course thus far including being afebrile. He is medically cleared for psychiatric placement. He will be seen by the psychiatric mail carrier and clerk in the morning for further disposition. Critical Care Time: No Critical care attestation.: If time is entered above; I have spent that time in minutes in the direct care of this critically ill patient, excluding procedure time. ED Disposition Clinical Impression: Suicidal ideations, Alcohol abuse Alcohol intoxication Qualifiers: Complication of substance-induced condition: uncomplicated Qualified Code(s): F10.920 - Alcohol use, unspecified with intoxication, uncomplicated Disposition: DC/TX-65 PSY HOSP/PSY UNIT Is pt being admited?: No Condition: Stable Time of Disposition: 04:24
[2020-10-11 02:20] LABS: Bilirubin,Urine NEG (Negative); Blood,Urine NEG (Negative); Color,Urine Yellow (Yellow); Protein,Urine <15 mg/dL mg/dL (Negative)
[2020-10-11 02:23] LABS: Amphetamine Screen,Urine PRESUMPTIVE NEGATIVE; Benzodiazepines Screen,Urine PRESUMPTIVE NEGATIVE; Cannabinoid Screen,Urine PRESUMPTIVE NEGATIVE; Cocaine Screen,Urine PRESUMPTIVE NEGATIVE; Methadone Screen,Urine PRESUMPTIVE NEGATIVE; Opiate Screen,Urine PRESUMPTIVE NEGATIVE
[2020-10-11 04:52] LABS: Total Cells Counted 100
[2020-10-11 04:54] LABS: Hypochromasia 1+; Target Cells Few
[2020-10-11 04:55] LABS: Anisocytosis 1+; Ovalocytes Few; Platelet Estimate Consistent w Auto
--- NOTE | 2020-10-11 11:01 | Consultation ---
History of Present Illness - Reason for Consult Consult date: 10/11/20 Reason for consult: suicidal - History of Present Psychiatric Illness Per ED Note: This is a 54-year-old -Guyanese male presents to the emergency department with a complaint of suicidal ideations and auditory hallucinations. The patient has a history of schizophrenia, EtOH abuse and dependence, liver cirrhosis, pancreatitis, esophagitis, hiatal hernia and hypertension. The patient was just seen here earlier today for alcohol intoxication and abdominal pains. The patient was given a full evaluation including a CT scan of the abdomen and pelvis and was discharged this evening after he appeared clinically sober. The patient says that he left the hospital but that he began having increased auditory hallucinations and suicidal ideations and came back to the emergency department for a psychiatric evaluation. The patient says that he has the plan to either jump in front of a car or jump off of a bridge to kill himself. He denies that he left the hospital and began drinking. He says that he has been without his medications for the past 2 weeks. Kang Cruz is a 54y/o male patient who states he is suicidal and seeing things. He says he stopped taking his meds about 2 weeks ago. The patient says "I don't know why I stopped taking them." He says he's seeing rats crawling around. The patient says "I don't want to live. I'm still real suicidal." He says he drinks 1/2 5th of vodka every day. The patient says his last drink was yesterday. He denies any illicit drugs. He says he has a history of schizophrenia PAST PSYCHIATRIC HISTORY Diagnoses: schizophrenia Suicide attempts or Self-harm behavior: Yes Prior psychiatric hospitalizations: Yes Substance Abuse history: alcohol Previous psychiatric medications tried: prozac, seroquel, vistaril Outpatient treatment: "a long time ago." PAST MEDICAL HISTORY: None reported Family Psychiatric History: None reported or documented SOCIAL HISTORY Marital Status: single Living Arrangements: homeless Employment Status: Disabled Access to guns/weapons: Denies Education: high school History of Abuse: Denies Legal History: Denies REVIEW OF SYSTEMS Constitutional: Negative for weight loss ENT: Negative for stridor Respiratory: Negative for cough or hemoptysis All other systems reviewed and are negative MENTAL STATUS EXAMINATION General Appearance and Behavior: Age appropriate, good hygiene, wearing appropriate clothes, fair eye contact, cooperative Cooperation: Participating/engaged Psychomotor Behavior: Psychomotor normal Mood: depressed Affect and affective range: congruent with stated mood Thought Process: illogical Thought Content: hallucinations Speech: normal tone and pace Suicidal Ideation: Yes Homicidal Ideation: Denies Hallucinations: Yes Delusions: None elicited Impulse Control: Impaired Insight and Judgment: impaired insight and judgment Memory: Impaired Attention: impaired Orientation: Alert, oriented Assessment and Plan (1) Schizophrenia (2) Noncompliance with other medical treatments and regimen Treatment Plan 1013 Restarted home medications agree with NAT Sitter: Per primary Medical: Per primary Disposition: Recommend acute psychiatric inpatient Will follow Case staffed with Dr. Ulrich Medications and Allergies Allergies Allergy/AdvReac Type Severity Reaction Status Date / Time Penicillins Allergy Hives Verified 01/01/19 08:47 Home Medications Medication Instructions Recorded Confirmed Last Taken Type FLUoxetine [PROzac] 20 mg PO QAM #30 capsule 01/13/19 10/11/20 Unknown Rx OLANzapine [Zyprexa] 10 mg PO BID 01/23/19 10/11/20 Unknown History traZODone 150 mg PO QHS 05/17/19 10/11/20 Unknown History Multivitamin with Folic Acid [[facility] 400 mcg PO QDAY #30 tablet 10/10/20 10/11/20 Unknown Rx One Daily Essential Tablet] chlordiazePOXIDE [Librium] 25 mg PO Q6H PRN #25 capsule 10/10/20 10/11/20 Unknown Rx Quetiapine Fumarate [SEROquel] 600 mg PO QHS 10/11/20 10/11/20 Unknown History Active Meds: Active Medications Chlordiazepoxide HCl (Chlordiazepoxide 25 Mg Cap) 50 mg PO Q1HR PRN PRN Reason: NAT-Maurice 8-15 Last Admin: 10/11/20 01:49 Dose: 50 mg Documented by: Chlordiazepoxide HCl (Chlordiazepoxide 25 Mg Cap) 100 mg PO Q1HR PRN PRN Reason: Chance 16-25 Mental Status Exam - Vital signs Last Vital Signs Temp 98.2 F 10/11/20 00:26 Pulse 110 H 10/11/20 00:26 Resp 18 10/11/20 00:26 BP 143/94 10/11/20 00:26 Pulse Ox 96 10/11/20 00:26 Results Result Diagrams: 10/11/20 00:39 10/11/20 00:39 Abnormal lab results 10/11/20 10/11/20 10/11/20 Range/Units 00:39 00:39 00:39 WBC (4.5-11.0) K/mm3 Hgb (11.8-15.2) gm/dl Hct (35.5-45.6) % MCV (84-94) fl MCH (28-32) pg MCHC (32-34) % RDW (13.2-15.2) % Lymphocytes % (Manual) (13.4-35.0) % BUN 6 L (9-20) mg/dL Glucose 112 H (75-100) mg/dL Salicylates < 0.3 L (2.8-20.0) mg/dL Acetaminophen 5.0 L (10.0-30.0) ug/mL Plasma/Serum Alcohol (0-0.07) % 10/11/20 10/11/20 Range/Units 00:39 00:39 WBC 3.7 L (4.5-11.0) K/mm3 Hgb 10.3 L (11.8-15.2) gm/dl Hct 34.0 L (35.5-45.6) % MCV 75 L (84-94) fl MCH 23 L (28-32) pg MCHC 30 L (32-34) % RDW 19.1 H (13.2-15.2) % Lymphocytes % (Manual) 42.0 H (13.4-35.0) % BUN (9-20) mg/dL Glucose (75-100) mg/dL Salicylates (2.8-20.0) mg/dL Acetaminophen (10.0-30.0) ug/mL Plasma/Serum Alcohol 0.20 H (0-0.07) % All other labs normal.
[2020-10-11 17:31] VITALS: BP 157/106
[2020-10-11] MEDS ORDERED: NON-FORMULARY EACH (Quetiapine Fumarate [Seroquel] 300 MG Tablet) PO SCH (22:00)
[2020-10-11] MEDS ORDERED: traZODone 50 MG TAB PO SCH (22:00)
[2020-10-11] MEDS ORDERED: QUEtiapine 100 MG TAB PO SCH (22:00)
[2020-10-12] MEDS ORDERED: FLUoxetine 20 MG CAP PO SCH (10:00)
== END 2020-10-11 17:42 ==
LOC: ED 00:13 → EEVIPCON 00:13 → ED 17:42
DX: R45.851 Suicidal ideations (principal); F10.129 Alcohol abuse with intoxication, unspecified; Z20.822 Contact with and (suspected) exposure to COVID-19; I10 Essential (primary) hypertension; E11.9 Type 2 diabetes mellitus without complications; F20.9 Schizophrenia, unspecified; Z98.890 Other specified postprocedural states; Z79.899 Other long term (current) drug therapy; Z88.0 Allergy status to penicillin
CPT/HCPCS: 36415; 80048; 80307; 81001; 85007; 85025; 99284; U0003; 80320; G0480

== ENCOUNTER 2020-10-19 04:44 | Emergency (ER) | payer MEDICAID ==
--- NOTE | 2020-10-19 05:57 | XRay Report ---
CHEST 2 VIEWS INDICATION / CLINICAL INFORMATION: chest pain. COMPARISON: 06/21/2019 FINDINGS: SUPPORT DEVICES: None. HEART / MEDIASTINUM: No significant abnormality. LUNGS / PLEURA: No significant pulmonary or pleural abnormality. No pneumothorax. ADDITIONAL FINDINGS: No significant additional findings. IMPRESSION: 1. No acute findings. Signer Name: Duc Abdullahi MD Signed: 10/19/2020 5:52 AM Workstation Name: [id number]
[2020-10-19 06:04] LABS: Hematocrit 33.2 % (35.5-45.6); Hemoglobin 10.5 gm/dl (11.8-15.2); Mean Corpuscular HGB Conc 32 % (32-34); Mean Corpuscular Volume 74 fl (84-94); Platelet Count 309 K/mm3 (140-440); Red Blood Count 4.49 M/mm3 (3.65-5.03); Red Cell Distribution Width 18.6 % (13.2-15.2)
[2020-10-19 06:14] LABS: Basophils % (Auto) 1.2 % (0.0-1.8); Eosinophils % (Auto) 3.2 % (0.0-4.3); Lymphocytes % (Auto) 30.3 % (13.4-35.0)
[2020-10-19 06:15] LABS: Basophils # (Auto) 0.1 K/mm3 (0.0-0.1); Eosinophils # (Auto) 0.1 K/mm3 (0.0-0.4); Lymphocytes # (Auto) 1.4 K/mm3 (1.2-5.4); Monocytes # (Auto) 0.8 K/mm3 (0.0-0.8)
[2020-10-19 06:25] LABS: Alanine Aminotransferase 40 units/L (7-56); BUN/Creatinine Ratio 10; Blood Urea Nitrogen 9 mg/dL (9-20); Calcium 8.8 mg/dL (8.4-10.2); Hemolysis Index 3
[2020-10-19] MEDS ORDERED: FAMOTIDINE 20 MG/2 ML INJ IV ONE (07:17)
--- NOTE | 2020-10-19 07:23 | Emergency Department Report ---
ED Chest Pain HPI - General Chief Complaint: Chest Pain Stated Complaint: CHEST PAIN Time Seen by Provider: 10/19/20 06:58 Source: patient Mode of arrival: Ambulatory Limitations: No Limitations - History of Present Illness Initial Comments: This is a 54-year-old -Norwegian male who presents to the emergency department with a complaint of some lower midsternal chest discomfort, epigastric pain, and nausea with vomiting that has been going on for the past few days. The patient says "I messed up again" in reference to continued alcohol abuse. Patient says that he had a sixpack of beer last night and reports drinking about 12 beers and a pint of vodka per day. The patient also says that he is depressed and suicidal secondary to his alcohol abuse and dependence. He does not have any actual plan as to how he would kill himself but says "I feel like it is the only way I can stop drinking." He has a past medical history of diabetes, hypertension, liver cirrhosis, chronic pancreatitis, esophagitis, hiatal hernia. He has a psychiatric history of schizophrenia. He denies any current hallucinations or homicidal ideations. - Related Data Home Medications Medication Instructions Recorded Confirmed Last Taken Quetiapine Fumarate [SEROquel] 600 mg PO QHS 10/11/20 10/11/20 Unknown Previous Rx's Medication Instructions Recorded Last Taken Type FLUoxetine [PROzac] 20 mg PO QAM #30 capsule 10/16/20 Unknown Rx Multivitamin with Folic Acid [[facility]vs 400 mcg PO QDAY #30 tablet 10/16/20 Unknown Rx One Daily Essential Tablet] OLANzapine [Zyprexa] 10 mg PO QAM #30 10/16/20 Unknown Rx QUEtiapine [SEROquel] 500 mg PO QHS 30 Days tablet 10/16/20 Unknown Rx Thiamine [Vitamin B-1] 100 mg PO QDAY #30 tablet 10/16/20 Unknown Rx traZODone [Desyrel] 150 mg PO QHS #30 tab 10/16/20 Unknown Rx Omeprazole 20 mg PO QDAY #20 capsule. 10/19/20 Unknown Rx Allergies Allergy/AdvReac Type Severity Reaction Status Date / Time Penicillins Allergy Hives Verified 01/01/19 08:47 Heart Score - HEART Score History: Slightly suspicious EKG: Normal Age: 45-65 Risk factors: 1-2 risk factors Troponin: < normal limit HEART Score: 2 - EKG Read Time Time EKG Completed: 05:35 EKG Read Time: 05:39 ED Review of Systems ROS: Stated complaint: CHEST PAIN Other details as noted in HPI ED Past Medical Hx - Past Medical History Previous Medical History?: Yes Hx Hypertension: Yes Hx Congestive Heart Failure: No Hx Diabetes: Yes Hx Renal Disease: No Hx Arthritis: No Hx Seizures: No Hx Psychiatric Treatment: Yes (Schizophrenia, Paranoid) Hx Asthma: No Hx COPD: No Hx Dementia: No Additional medical history: Umbillical hernia, colon polyps. colaspe lung/ CIRRHOIS, pancreatitis, ETOH abuse, esophagitis, hiatal hernia - Surgical History Past Surgical History?: Yes Hx Cholecystectomy: No Hx Appendectomy: No Additional Surgical History: ankle right surgery, Hernia - Social History Smoking Status: Never Smoker Substance Use Type: Alcohol - Medications Home Medications: Home Medications Medication Instructions Recorded Confirmed Last Taken Type Quetiapine Fumarate [SEROquel] 600 mg PO QHS 10/11/20 10/11/20 Unknown History FLUoxetine [PROzac] 20 mg PO QAM #30 capsule 10/16/20 Unknown Rx Multivitamin with Folic Acid [[facility] 400 mcg PO QDAY #30 tablet 10/16/20 Unknown Rx One Daily Essential Tablet] OLANzapine [Zyprexa] 10 mg PO QAM #30 10/16/20 Unknown Rx QUEtiapine [SEROquel] 500 mg PO QHS 30 Days tablet 10/16/20 Unknown Rx Thiamine [Vitamin B-1] 100 mg PO QDAY #30 tablet 10/16/20 Unknown Rx traZODone [Desyrel] 150 mg PO QHS #30 tab 10/16/20 Unknown Rx Omeprazole 20 mg PO QDAY #20 capsule. 10/19/20 Unknown Rx ED Physical Exam - General Limitations: No Limitations - Other Other exam information: GENERAL: The patient is well-developed well-nourished. HENT: Normocephalic. Atraumatic. Patient has moist mucous membranes. EYES: Extraocular motions are intact. NECK: Supple. Trachea is midline. CHEST/LUNGS: Clear to auscultation. There is no respiratory distress noted. HEART/CARDIOVASCULAR: Regular. There is no tachycardia. There is no murmur. ABDOMEN: Abdomen is soft. Mild epigastric tenderness to palpation. No guarding. Patient has normal bowel sounds. There is no abdominal distention. SKIN: Skin is warm and dry. NEURO: The patient is awake, alert, and oriented. The patient is cooperative. The patient has no focal neurologic deficits. Normal speech. Cranial nerves II through XII grossly intact. MUSCULOSKELETAL: There is no tenderness or deformity. There is no limitation range of motion. ED Course Vital Signs 10/19/20 10/19/20 10/19/20 05:28 07:00 07:16 Temperature 98.4 F Pulse Rate 101 H 105 H 101 H Respiratory 18 16 20 Rate Blood Pressure 132/76 126/67 119/82 O2 Sat by Pulse 97 97 98 Oximetry 10/19/20 10/19/20 10/19/20 07:30 07:46 08:00 Temperature Pulse Rate 96 H 92 H 90 Respiratory 15 12 12 Rate Blood Pressure 119/82 119/77 119/77 O2 Sat by Pulse 95 95 96 Oximetry 10/19/20 10/19/20 10/19/20 08:16 08:30 08:46 Temperature Pulse Rate 90 91 H 88 Respiratory 14 19 13 Rate Blood Pressure 111/84 111/84 106/74 O2 Sat by Pulse 100 93 91 Oximetry 10/19/20 10/19/20 10/19/20 09:00 09:16 09:30 Temperature Pulse Rate 88 87 83 Respiratory 12 12 13 Rate Blood Pressure 106/74 117/77 117/77 O2 Sat by Pulse 94 92 97 Oximetry SAGE score - Sage Score Age > 65: (0) No Aspirin use within the Past 7 Days: (0) No 3 or more CAD Risk Factors: (0) No 2 or more Angina events in past 24 hrs: (1) Yes Known CAD with more than 50% Stenosis: (0) No Elevated Cardiac Markers: (0) No ST Deviation Greater than 0.5mm: (0) No SAGE Score: 1 ED Medical Decision Making - Lab Data Result diagrams: 10/19/20 05:48 10/19/20 05:48 - EKG Data -: EKG Interpreted by Me EKG shows normal: sinus rhythm, axis, intervals, QRS complexes, ST-T waves Rate: normal - EKG Data When compared to previous EKG there are: previous EKG unavailable Interpretation: normal EKG, unchanged when compared t (06/21/19) - Radiology Data Radiology results: image reviewed interpreted by me: Chest x-ray does not show any acute process. There are no pleural effusions, obvious pneumonia and there is no pneumothorax. No significant cardiomegaly. - Medical Decision Making This patient presents to the emergency department with a complaint of some lower midsternal and epigastric discomfort. He also complains of some depression with suicidal ideations secondary to his inability to quit drinking alcohol. Initially the patient was placed on a 1013 and an ED hold. EKG did not have any morphology consistent with ST elevation myocardial infarction or any dysrhythmia. Patient's labs have been mostly unremarkable including CBC, metabolic panel, negative troponins x2. Blood alcohol level is negative at this point. Urine drug screen positive for benzodiazepines. Patient was seen by the psychiatric team who did not feel that the patient required inpatient stabilization and will provide outpatient resources for both behavioral health and detox/rehabilitation for his alcohol dependence. So far the patient has not exhibited any signs of alcohol withdrawal. The patient is low on the heart and SAGE score. He is low on the Wells score criteria. He does not appear to have any risk factors for thromboembolic disease. I also believe that the patient's complaint of lower midsternal chest discomfort is more consistent with esophagitis or gastritis or a GI issue. However, the patient will be given a referral for cardiology. His contact information will be sent to the [facility], and someone will attempt to contact him for outpatient follow-up as part of our [facility] l ow risk chest pain protocol. The patient has been instructed to follow-up with primary care and cardiology, as well as the psychiatric referrals. He has also been instructed to return to the emergency department with any worsening of his symptoms or with any acute distress. Critical Care Time: No Critical care attestation.: If time is entered above; I have spent that time in minutes in the direct care of this critically ill patient, excluding procedure time. ED Disposition Clinical Impression: Atypical chest pain, Alcohol abuse, Gastritis, Depression Disposition: DC-01 TO HOME OR SELFCARE Is pt being admited?: No Condition: Stable Instructions: Alcohol Use Disorder, Alcohol Abuse and Dependence Information, Adult, Nonspecific Chest Pain, Adult Additional Instructions: Please follow-up with a primary care physician in the next few days. You were seen today by the psychiatric team. They have provided outpatient resources/referrals for both psychiatric care and for detox/rehabilitation for your alcohol use. Please follow-up with these outpatient resources. Return to the emergency department immediately with any thoughts of harming your self or others. I am sending your contact information over to the [facility], and someone from their office should be contacting you shortly for close outpatient follow-up. Return to the emergency department with any worsening of your symptoms, new or concerning symptoms not addressed during this current emergency department visit, or with any acute distress. OUTPATIENT MENTAL HEALTH RESOURCES [facility], [facility] Oneyda Weldon MD: [address], [address] [place] [address] [place] [address] [facility]: [facility] [address] [place] [address] [place] [address] [phone] [facility] Integrative Psychiatry: [facility] Healthcare: [address] [facility] [place] [address] [facility] [address] [facility]: Aníbal Singh MD: [address] [facility] [address] [facility] [id number] [facility] [place] [facility]: [address] [place] [address] [phone] [place] CRISIS AND ACCESS LINE: SUBSTANCE ABUSE PROGRAMS: [facility]: Location: [place], [place] [facility] Address: [address] [place] [address] [facility]: Address: [address] [place] [address] [facility]: Address: [address] [place] [address] [facility]: Address: [address] [place] [address] [facility] Address: [address] [place] [address]. Please contact above numbers to attempt placement into free based program. Medicaid Programs: [facility]: Address: [address] [place] [address] [facility]: Address: [address] [place] [address] HOMELESS RESOURCES: [facility] NEED HELP? If you are in need of help or know someone who does, please contact us at [email or web address] call , or come to our offices at [address] [place] [phone], Thursday-Thursday beginning at 8AM. [facility] M[facility] only Admission at 7am Thu to Thu Address: [address] [place] [address] Client Engagement [phone] Regular program admission occurs Thursday through Thursday at 7:00 amand operates on a first come, first serve basis.Because we cant anticipate program availability in advance andprogram spots are in high demand, we recommend arriving early. Space fills up fast! Next steps can include: Assignment to a [facility] program bed Connection to and placement in a partner program, or Referral to a partner agency [facility] only Admission at 4:30pm daily Address: [place] [address] [facility] Admission from 8am to 10am Daily No intake until 07/09/20 Address: [address] [place] [id number] Prescriptions: Omeprazole 20 mg PO QDAY #20 capsule. Referrals: URBAN PASTRANA MD [Primary Care Provider] - 2-3 Days RICHARD RIVERA MD [Staff Physician] - 2-3 Days [facility] [Provider Group] - 2-3 Days Time of Disposition: 13:17
[2020-10-19] MEDS ORDERED: THIAMINE 100 MG, FOLIC ACID 1 MG in SODIUM CHLORIDE 0.9% 1000 ML 1,000 ML IV ONE (08:00)
[2020-10-19] MEDS ORDERED: LIDOCAINE VISCOUS 2% 15 ML ORAL LIQD PO ONE (08:45)
[2020-10-19] MEDS ORDERED: ALUM-MAG HYDROXIDE-SIMETHICONE 200-200-20MG/5ML ORAL LIQD 30 ML PO ONE (08:45)
[2020-10-19 09:54] VITALS: BP 117/77
[2020-10-19 10:38] LABS: Amphetamine Screen,Urine Negative; Cannabinoid Screen,Urine Negative; Cocaine Screen,Urine Negative; Methadone Screen,Urine Negative; Opiate Screen,Urine Negative
[2020-10-19 10:39] LABS: Bilirubin,Urine NEG (Negative); Blood,Urine NEG (Negative); Color,Urine Yellow (Yellow); RBC,Urine < 1.0 /HPF (0.0-6.0); WBC,Urine < 1.0 /HPF (0.0-6.0)
--- NOTE | 2020-10-19 11:08 | Consultation ---
History of Present Illness - Reason for Consult Consult date: 10/19/20 Reason for consult: ETOH - History of Present Psychiatric Illness Per ED Note: This is a 54-year-old -Tanzanian male who presents to the emergency department with a complaint of some lower midsternal chest discomfort, epigastric pain, and nausea with vomiting that has been going on for the past few days. The patient says "I messed up again" in reference to continued alcohol abuse. Patient says that he had a sixpack of beer last night and reports drinking about 12 beers and a pint of vodka per day. The patient also says that he is depressed and suicidal secondary to his alcohol abuse and dependence. He does not have any actual plan as to how he would kill himself but says "I feel like it is the only way I can stop drinking." He has a past medical history of diabetes, hypertension, liver cirrhosis, chronic pancreatitis, esophagitis, hiatal hernia. He has a psychiatric history of schizophrenia. He denies any current hallucinations or homicidal ideations. Kang Cruz is a 54y/o male patient who is known to me from previous visits. The patient was discharged from [facility] last week. The patient is a/o x 3. He says he came to the ER for chest pain. The patient says "I been drinking. I did it again." The patient denies SI/HI at present but states "the drinking makes me feel like that." He then says "I always feel like that when I start drinking." He says "I been drinking since I was 16." When asking about hallucinations the patient denies at present, but states "I was seeing rats." This is what the patient stated on his last visit. PAST PSYCHIATRIC HISTORY Diagnoses: schizophrenia Suicide attempts or Self-harm behavior: Yes Prior psychiatric hospitalizations: Yes Substance Abuse history: alcohol Previous psychiatric medications tried: prozac, seroquel, vistaril Outpatient treatment: "a long time ago." PAST MEDICAL HISTORY: None reported Family Psychiatric History: None reported or documented SOCIAL HISTORY Marital Status: single Living Arrangements: homeless Employment Status: Disabled Access to guns/weapons: Denies Education: high school History of Abuse: Denies Legal History: Denies REVIEW OF SYSTEMS Constitutional: Negative for weight loss ENT: Negative for stridor Respiratory: Negative for cough or hemoptysis All other systems reviewed and are negative MENTAL STATUS EXAMINATION General Appearance and Behavior: Age appropriate, good hygiene, wearing appropri ate clothes, fair eye contact, cooperative Cooperation: Participating/engaged Psychomotor Behavior: Psychomotor normal Mood: depressed Affect and affective range: congruent with stated mood Thought Process: illogical Thought Content: hallucinations Speech: normal tone and pace Suicidal Ideation: Yes Homicidal Ideation: Denies Hallucinations: Yes Delusions: None elicited Impulse Control: Impaired Insight and Judgment: impaired insight and judgment Memory: Impaired Attention: impaired Orientation: Alert, oriented Assessment and Plan (1) Alcohol Dependence (2) Noncompliance with other medical treatments and regimen Treatment Plan Continue previous prescribed medications Sitter: Per primary Medical: Per primary Disposition: Do not recommend acute psychiatric inpatient treatment The patient to abstain from alcohol He is to follow up with outpatient psych in 7 to 14 days upon discharge [employer] to give him resources for outpatient psych, CBT, and alcohol rehab Will sign off. Case staffed with Dr. Ulrich Medications and Allergies Allergies Allergy/AdvReac Type Severity Reaction Status Date / Time Penicillins Allergy Hives Verified 01/01/19 08:47 Home Medications Medication Instructions Recorded Confirmed Last Taken Type Quetiapine Fumarate [SEROquel] 600 mg PO QHS 10/11/20 10/11/20 Unknown History FLUoxetine [PROzac] 20 mg PO QAM #30 capsule 10/16/20 Unknown Rx Multivitamin with Folic Acid [[facility]vs 400 mcg PO QDAY #30 tablet 10/16/20 Unknown Rx One Daily Essential Tablet] OLANzapine [Zyprexa] 10 mg PO QAM #30 10/16/20 Unknown Rx QUEtiapine [SEROquel] 500 mg PO QHS 30 Days tablet 10/16/20 Unknown Rx Thiamine [Vitamin B-1] 100 mg PO QDAY #30 tablet 10/16/20 Unknown Rx traZODone [Desyrel] 150 mg PO QHS #30 tab 10/16/20 Unknown Rx Active Meds: Active Medications Thiamine HCl 100 mg/ Folic (Acid 1 mg/ Sodium Chloride) 1,001.2 mls @ 250 mls/hr IV ONCE ONE Stop: 10/19/20 12:00 Last Admin: 10/19/20 11:03 Dose: 250 mls/hr Documented by: Mental Status Exam - Vital signs Last Vital Signs Temp 98.4 F 10/19/20 05:28 Pulse 83 10/19/20 09:30 Resp 13 10/19/20 09:30 BP 117/77 10/19/20 09:30 Pulse Ox 97 10/19/20 09:30 Results Result Diagrams: 10/19/20 05:48 10/19/20 05:48 Abnormal lab results 10/19/20 10/19/20 Range/Units 05:48 05:48 Hgb 10.5 L (11.8-15.2) gm/dl Hct 33.2 L (35.5-45.6) % MCV 74 L (84-94) fl MCH 24 L (28-32) pg RDW 18.6 H (13.2-15.2) % AST 51 H (5-40) units/L All other labs normal.
--- NOTE | 2020-10-19 11:32 | Electrocardiograph Report ---
[facility] Test Date: 2020-10-19 Test Time: 05:35:20 Pat Name: FOREIGN MARS Department: Room: Gender: M Security Architect: SUMAN : 1965 Requested By: YVES DICKSON Order Number: [id number] Reading MD: Deandre Cuevas Measurements Intervals [place] Rate: 98 P: 47 AL: 184 QRS: 44 QRSD: 85 T: 24 QT: 371 QTc: 474 Interpretive Statements Sinus rhythm Probable left atrial enlargement No previous ECG available for comparison Electronically Signed On 10-19-2020 11:32:27 EDT by Deandre Cuevas
[2020-10-19 12:12] LABS: Benzodiazepines Screen,Urine PRESUMPTIVE POSITIVE
== END 2020-10-19 19:06 | disposition home or self-care (01) ==
LOC: ED 04:44
DX: K29.70 Gastritis, unspecified, without bleeding (principal); Z20.822 Contact with and (suspected) exposure to COVID-19; F32.9 Major depressive disorder, single episode, unspecified; F10.10 Alcohol abuse, uncomplicated; R07.89 Other chest pain; I10 Essential (primary) hypertension; E11.9 Type 2 diabetes mellitus without complications; F20.9 Schizophrenia, unspecified; Z98.890 Other specified postprocedural states; Z79.899 Other long term (current) drug therapy; Z88.0 Allergy status to penicillin
CPT/HCPCS: 36415; 71046; 80053; 80307; 81001; 82140; 83690; 84484; 85025; 93005; 96365; 96366; 96375; 99284; J3411; J7030; U0003; 80320; G0480

== ENCOUNTER 2020-10-22 05:57 | Emergency (ER) | payer MEDICAID ==
[2020-10-22 07:04] VITALS: BP 126/67
--- NOTE | 2020-10-22 07:49 | Event Note ---
ED Screening Note Date of service: 10/22/20 Time: 07:46 ED Screening Note: Pt is poor historian, he is somnolent, and appears intoxicated c/o right ankle pain, and low back pain after fall yesterday. Pt states he is not sure how he fell. He states he was walking when he fell. He states he thinks he passed out. He denies head injury. he report nausea, vomiting, and abdominal pain today. pmhx: psych d/o and ETOH abuse This initial assessment/diagnostic orders/clinical plan/treatment(s) is/are subject to change based on patients health status, clinical progression and re- assessment by fellow clinical providers in the ED. Further treatment and workup at subsequent clinical providers discretion. Patient/guardian urged not to elope from the ED as their condition may be serious if not clinically assessed and managed. Initial orders include: Labs/xrays
--- NOTE | 2020-10-22 08:55 | XRay Report ---
LUMBOSACRAL SPINE 3 VIEWS INDICATION: Fall, back pain. COMPARISON: CT abdomen pelvis 10/10/2020 IMPRESSION: 5 mm anterolisthesis of L4 with respect to L5 is again noted and unchanged. Mild degener ative disc disease and moderate hypertrophic facet arthropathy at L4-5 as well. The remaining levels are within normal limits. No acute osseous or soft tissue abnormality. RIGHT ANKLE 3 VIEWS INDICATION: Fall/ankle pain. COMPARISON: None. IMPRESSION: Normal bone mineralization. There has been previous internal stabilization of the distal fibula with metal plate and screws as well as the distal tibia with 3 metallic screws. One of the di stal tibia screws is fractured on the lateral image. Chronic healed fractures of the distal fibula an d tibia are noted but no obvious acute fracture. There is anterior angulation at the chronic distal t ibial fracture site is estimated at 20 degrees. Severe posttraumatic degenerative changes are identif ied at the tibiotalar joint. Osteochondral defect on the talar head is suspected. Signer Name: Alexis Quinn Jr, MD Signed: 10/22/2020 8:51 AM Workstation Name: [id number]
[2020-10-22 09:19] LABS: Basophils % (Auto) 0.3 % (0.0-1.8); Eosinophils # (Auto) 0.1 K/mm3 (0.0-0.4); Eosinophils % (Auto) 1.5 % (0.0-4.3); Lymphocytes % (Auto) 11.7 % (13.4-35.0); Mean Corpuscular HGB Conc 30 % (32-34); Mean Corpuscular Volume 73 fl (84-94); Monocytes # (Auto) 0.6 K/mm3 (0.0-0.8); Monocytes % (Auto) 6.7 % (0.0-7.3); Platelet Count 356 K/mm3 (140-440); Red Blood Count 4.64 M/mm3 (3.65-5.03); Red Cell Distribution Width 18.9 % (13.2-15.2)
[2020-10-22 09:21] LABS: Hemoglobin 10.1 gm/dl (11.8-15.2)
[2020-10-22 09:30] LABS: Alanine Aminotransferase 30 units/L (7-56); Albumin 3.4 g/dL (3.9-5); BUN/Creatinine Ratio 13; Blood Urea Nitrogen 10 mg/dL (9-20); Calcium 8.7 mg/dL (8.4-10.2); Hemolysis Index 15
== END 2020-10-22 20:00 | disposition left against medical advice (07) ==
LOC: ED 05:57
DX: M25.571 Pain in right ankle and joints of right foot (principal); Z53.21 Procedure and treatment not carried out due to patient leaving prior to being seen by health care provider
CPT/HCPCS: 36415; 72100; 80053; 80320; 83690; 83735; 85025; G0480

== ENCOUNTER 2020-10-28 08:17 | Emergency (ER) | payer MEDICAID ==
[2020-10-28 09:15] LABS: Amphetamine Screen,Urine Negative; Cannabinoid Screen,Urine Negative; Methadone Screen,Urine Negative; Opiate Screen,Urine Negative
[2020-10-28 09:31] LABS: Benzodiazepines Screen,Urine Positive; Cocaine Screen,Urine Positive
[2020-10-28 10:28] LABS: Basophils # (Auto) 0.1 K/mm3 (0.0-0.1); Basophils % (Auto) 0.9 % (0.0-1.8); Eosinophils % (Auto) 0.1 % (0.0-4.3); Hematocrit 31.4 % (35.5-45.6); Hemoglobin 9.8 gm/dl (11.8-15.2); Lymphocytes # (Auto) 0.7 K/mm3 (1.2-5.4); Lymphocytes % (Auto) 10.1 % (13.4-35.0); Mean Corpuscular HGB Conc 31 % (32-34); Mean Corpuscular Volume 74 fl (84-94); Monocytes # (Auto) 0.6 K/mm3 (0.0-0.8); Monocytes % (Auto) 8.8 % (0.0-7.3); Platelet Count 316 K/mm3 (140-440); Red Blood Count 4.27 M/mm3 (3.65-5.03); Red Cell Distribution Width 19.5 % (13.2-15.2)
[2020-10-28 10:44] LABS: Alanine Aminotransferase 21 units/L (7-56); Albumin 3.9 g/dL (3.9-5); BUN/Creatinine Ratio 8; Blood Urea Nitrogen 7 mg/dL (9-20); Calcium 9.2 mg/dL (8.4-10.2); Hemolysis Index 0
--- NOTE | 2020-10-28 11:32 | Emergency Department Report ---
HPI - General Chief Complaint: Abdominal Pain Time Seen by Provider: 10/28/20 11:19 - HPI HPI: Room 25 Patient is a 54-year-old male present with chief complaint of auditory hallucinations. The patient states he stopped taking psychiatric medication ap proximate 2.5 weeks ago because he was feeling well. Patient states for the past 4 days he has had auditory hallucinations telling him to jump off of a bridge or in front of cars or boxes. Patient denies any actual attempts at harming himself. Patient states he did develop some nausea vomiting last night after eating. Patient states he has acid reflux and it has been bothering him lately ED Past Medical Hx - Past Medical History Hx Hypertension: Yes Hx Diabetes: Yes Hx Psychiatric Treatment: Yes (Schizophrenia, Paranoid) Additional medical history: Umbillical hernia, colon polyps. colaspe lung/ CIRRHOIS, pancreatitis, ETOH abuse, esophagitis, hiatal hernia - Surgical History Additional Surgical History: ankle right surgery, Hernia - Family History Family history: no significant - Social History Smoking Status: Never Smoker Substance Use Type: Alcohol (Sixpack of beer and a pint of vodka daily), Cocaine (Crack cocaine) - Medications Home Medications: Home Medications Medication Instructions Recorded Confirmed Last Taken Type Quetiapine Fumarate [SEROquel] 600 mg PO QHS 10/11/20 10/11/20 Unknown History FLUoxetine [PROzac] 20 mg PO QAM #30 capsule 10/16/20 Unknown Rx Multivitamin with Folic Acid [[facility] 400 mcg PO QDAY #30 tablet 10/16/20 Unknown Rx One Daily Essential Tablet] OLANzapine [Zyprexa] 10 mg PO QAM #30 10/16/20 Unknown Rx QUEtiapine [SEROquel] 500 mg PO QHS 30 Days tablet 10/16/20 Unknown Rx Thiamine [Vitamin B-1] 100 mg PO QDAY #30 tablet 10/16/20 Unknown Rx traZODone [Desyrel] 150 mg PO QHS #30 tab 10/16/20 Unknown Rx Omeprazole 20 mg PO QDAY #20 capsule. 10/19/20 Unknown Rx ED Review of Systems ROS: Stated complaint: CHEST PAIN Other details as noted in HPI Constitutional: no symptoms reported Eyes: denies: eye pain ENT: denies: throat pain Respiratory: no symptoms reported Cardiovascular: denies: chest pain Endocrine: no symptoms reported Gastrointestinal: abdominal pain, nausea Genitourinary: denies: dysuria Musculoskeletal: denies: back pain Neurological: denies: headache Physical Exam - Physical Exam Vital Signs: Vital Signs 10/28/20 08:23 Temperature 99.3 F Pulse Rate 122 H Respiratory 22 Rate Blood Pressure 179/97 O2 Sat by Pulse 95 Oximetry Physical Exam: GENERAL: The patient is well-developed well-nourished male lying on stretcher not appearing to be in any distress. [] HEENT: Normocephalic. Atraumatic. Extraocular motions are intact. Patient has moist mucous membranes. NECK: Supple. Trachea midline CHEST/LUNGS: Clear to auscultation. There is no respiratory distress noted. HEART/CARDIOVASCULAR: Regular. There is no tachycardia. There is no gallop rub or murmur. ABDOMEN: Abdomen is soft, with mild discomfort to palpation diffusely. No rebound or guarding. Patient has normal bowel sounds. There is no abdominal distention. SKIN: There is no rash. There is no edema. There is no diaphoresis. NEURO: The patient is awake, alert, and oriented. The patient is cooperative. The patient has no focal neurologic deficits. The patient has normal speech MUSCULOSKELETAL: There is no evidence of acute injury. ED Course Vital Signs 10/28/20 08:23 Temperature 99.3 F Pulse Rate 122 H Respiratory 22 Rate Blood Pressure 179/97 O2 Sat by Pulse 95 Oximetry ED Medical Decision Making - Lab Data Result diagrams: 10/28/20 09:29 10/28/20 09:29 Laboratory Tests 10/28/20 10/28/20 10/28/20 09:29 09:29 09:29 WBC 7.0 RBC 4.27 Hgb 9.8 L Hct 31.4 L MCV 74 L MCH 23 L MCHC 31 L RDW 19.5 H Plt Count 316 Lymph % (Auto) 10.1 L [place] % (Auto) 8.8 H Eos % (Auto) 0.1 Baso % (Auto) 0.9 Lymph # (Auto) 0.7 L [place] # (Auto) 0.6 Eos # (Auto) 0.0 Baso # (Auto) 0.1 Seg Neutrophils % 80.1 H Seg Neutrophils # 5.6 Sodium 143 Potassium 4.1 Chloride 106.0 Carbon Dioxide 23 Anion Gap 18 BUN 7 L Creatinine 0.9 Estimated GFR > 60 BUN/Creatinine Ratio 8 Glucose 81 Calcium 9.2 Total Bilirubin < 0.20 AST 24 ALT 21 Alkaline Phosphatase 81 Troponin T Total Protein 7.5 Albumin 3.9 Albumin/Globulin Ratio 1.1 Lipase 13 Salicylates Urine Opiates Screen Urine Methadone Screen Acetaminophen Ur Barbiturates Screen Ur Phencyclidine Scrn Ur Amphetamines Screen U Benzodiazepines Scrn Urine Cocaine Screen U Marijuana (THC) Screen Drugs of Abuse Note Plasma/Serum Alcohol < 0.01 10/28/20 10/28/20 10/28/20 09:29 09:29 09:29 WBC RBC Hgb Hct MCV MCH MCHC RDW Plt Count Lymph % (Auto) [place] % (Auto) Eos % (Auto) Baso % (Auto) Lymph # (Auto) [place] # (Auto) Eos # (Auto) Baso # (Auto) Seg Neutrophils % Seg Neutrophils # Sodium Potassium Chloride Carbon Dioxide Anion Gap BUN Creatinine Estimated GFR BUN/Creatinine Ratio Glucose Calcium Total Bilirubin AST ALT Alkaline Phosphatase Troponin T < 0.010 Total Protein Albumin Albumin/Globulin Ratio Lipase Salicylates < 0.3 L Urine Opiates Screen Urine Methadone Screen Acetaminophen < 5.0 L Ur Barbiturates Screen Ur Phencyclidine Scrn Ur Amphetamines Screen U Benzodiazepines Scrn Urine Cocaine Screen U Marijuana (THC) Screen Drugs of Abuse Note Plasma/Serum Alcohol 10/28/20 Unknown WBC RBC Hgb Hct MCV MCH MCHC RDW Plt Count Lymph % (Auto) [place] % (Auto) Eos % (Auto) Baso % (Auto) Lymph # (Auto) [place] # (Auto) Eos # (Auto) Baso # (Auto) Seg Neutrophils % Seg Neutrophils # Sodium Potassium Chloride Carbon Dioxide Anion Gap BUN Creatinine Estimated GFR BUN/Creatinine Ratio Glucose Calcium Total Bilirubin AST ALT Alkaline Phosphatase Troponin T Total Protein Albumin Albumin/Globulin Ratio Lipase Salicylates Urine Opiates Screen Negative Urine Methadone Screen Negative Acetaminophen Ur Barbiturates Screen Negative Ur Phencyclidine Scrn Negative Ur Amphetamines Screen Negative U Benzodiazepines Scrn Positive Urine Cocaine Screen Positive U Marijuana (THC) Screen Negative Drugs of Abuse Note Disclamer Plasma/Serum Alcohol Laboratory Tests 10/28/20 10/28/20 10/28/20 09:29 09:29 09:29 WBC 7.0 RBC 4.27 Hgb 9.8 L Hct 31.4 L MCV 74 L MCH 23 L MCHC 31 L RDW 19.5 H Plt Count 316 Lymph % (Auto) 10.1 L [place] % (Auto) 8.8 H Eos % (Auto) 0.1 Baso % (Auto) 0.9 Lymph # (Auto) 0.7 L [place] # (Auto) 0.6 Eos # (Auto) 0.0 Baso # (Auto) 0.1 Seg Neutrophils % 80.1 H Seg Neutrophils # 5.6 Sodium 143 Potassium 4.1 Chloride 106.0 Carbon Dioxide 23 Anion Gap 18 BUN 7 L Creatinine 0.9 Estimated GFR > 60 BUN/Creatinine Ratio 8 Glucose 81 Calcium 9.2 Total Bilirubin < 0.20 AST 24 ALT 21 Alkaline Phosphatase 81 Troponin T Total Protein 7.5 Albumin 3.9 Albumin/Globulin Ratio 1.1 Lipase 13 Salicylates Urine Opiates Screen Urine Methadone Screen Acetaminophen Ur Barbiturates Screen Ur Phencyclidine Scrn Ur Amphetamines Screen U Benzodiazepines Scrn Urine Cocaine Screen U Marijuana (THC) Screen Drugs of Abuse Note Plasma/Serum Alcohol < 0.01 10/28/20 10/28/20 10/28/20 09:29 09:29 09:29 WBC RBC Hgb Hct MCV MCH MCHC RDW Plt Count Lymph % (Auto) [place] % (Auto) Eos % (Auto) Baso % (Auto) Lymph # (Auto) [place] # (Auto) Eos # (Auto) Baso # (Auto) Seg Neutrophils % Seg Neutrophils # Sodium Potassium Chloride Carbon Dioxide Anion Gap BUN Creatinine Estimated GFR BUN/Creatinine Ratio Glucose Calcium Total Bilirubin AST ALT Alkaline Phosphatase Troponin T < 0.010 Total Protein Albumin Albumin/Globulin Ratio Lipase Salicylates < 0.3 L Urine Opiates Screen Urine Methadone Screen Acetaminophen < 5.0 L Ur Barbiturates Screen Ur Phencyclidine Scrn Ur Amphetamines Screen U Benzodiazepines Scrn Urine Cocaine Screen U Marijuana (THC) Screen Drugs of Abuse Note Plasma/Serum Alcohol 10/28/20 10/28/20 14:11 Unknown WBC RBC Hgb Hct MCV MCH MCHC RDW Plt Count Lymph % (Auto) [place] % (Auto) Eos % (Auto) Baso % (Auto) Lymph # (Auto) [place] # (Auto) Eos # (Auto) Baso # (Auto) Seg Neutrophils % Seg Neutrophils # Sodium Potassium Chloride Carbon Dioxide Anion Gap BUN Creatinine Estimated GFR BUN/Creatinine Ratio Glucose Calcium Total Bilirubin AST ALT Alkaline Phosphatase Troponin T < 0.010 Total Protein Albumin Albumin/Globulin Ratio Lipase Salicylates Urine Opiates Screen Negative Urine Methadone Screen Negative Acetaminophen Ur Barbiturates Screen Negative Ur Phencyclidine Scrn Negative Ur Amphetamines Screen Negative U Benzodiazepines Scrn Positive Urine Cocaine Screen Positive U Marijuana (THC) Screen Negative Drugs of Abuse Note Disclamer Plasma/Serum Alcohol - EKG Data -: EKG Interpreted by Me EKG shows normal: sinus rhythm Rate: normal - EKG Data When compared to previous EKG there are: previous EKG unavailable Interpretation: other (No ischemic changes seen) - Differential Diagnosis Schizophrenia, suicidal ideation, auditory hallucinations, pancreatitis, GE Critical care attestation.: If time is entered above; I have spent that time in minutes in the direct care of this critically ill patient, excluding procedure time. ED Disposition Clinical Impression: Suicidal ideations, Schizophrenia, Auditory hallucinations, GERD (gastroesophageal reflux disease), Cocaine abuse Disposition: [id number] PSY HOSP/PSY UNIT Is pt being admited?: No Does the pt Need Aspirin: No Condition: Stable Time of Disposition: 15:00 (Awaiting acceptance)
[2020-10-28] MEDS ORDERED: SODIUM CHLORIDE 0.9% 1000 ML 1,000 ML IV ONE (11:34)
[2020-10-28] MEDS ORDERED: LIDOCAINE VISCOUS 2% 15 ML ORAL LIQD PO ONE (11:34)
[2020-10-28] MEDS ORDERED: ONDANSETRON 4 MG/2 ML INJ IV ONE (11:34)
[2020-10-28] MEDS ORDERED: ALUM-MAG HYDROXIDE-SIMETHICONE 200-200-20MG/5ML ORAL LIQD 30 ML PO ONE (11:34)
[2020-10-28] MEDS ORDERED: fentaNYL 100 MCG/2 ML INJ IV ONE (11:34)
[2020-10-29 08:38] VITALS: BP 136/78
--- NOTE | 2020-10-29 10:59 | Consultation ---
History of Present Illness - Reason for Consult Consult date: 10/29/20 Reason for consult: MHE Requesting physician: JOHNNY KHALIL - History of Present Psychiatric Illness PSYCH HPI Patient is a 54-year-old, single, currently unemployed and SSI -[place] male with past psychiatric history of paranoid and delusional schizophrenia who presented to the ED with chief complaint of having auditory hallucinations. Patient is well known to me from prior encounter, patient states he had been out with a lady, had some money and used cocaine and that was when his psych symptoms came back, he states because he was high. Patient states he feels fine now, no hallucinations, not feeling suicidal or homicidal at the moment. PAST PSYCHIATRIC HISTORY Diagnoses: schizophrenia Suicide attempts or Self-harm behavior: Yes Prior psychiatric hospitalizations: Yes Substance Abuse history: alcohol Previous psychiatric medications tried: prozac, seroquel, vistaril Outpatient treatment: "a long time ago." PAST MEDICAL HISTORY: None reported Family Psychiatric History: None reported or documented SOCIAL HISTORY Marital Status: single Living Arrangements: homeless Employment Status: Disabled Access to guns/weapons: Denies Education: high school History of Abuse: Denies Legal History: Denies REVIEW OF SYSTEMS Constitutional: Negative for weight loss ENT: Negative for stridor Respiratory: Negative for cough or hemoptysis All other systems reviewed and are negative MENTAL STATUS EXAMINATION General Appearance and Behavior: Age appropriate, good hygiene, wearing appropriate clothes, good eye contact, cooperative polite with questioning. Cooperation: Participating/engaged Psychomotor Behavior: unremarkable and within normal limits Mood: Good Affect and affective range: congruent with mood Thought Process: Fluent/Logical, Thought Content: Within reality, Speech: Normal volume, Regular rate and rhythm, Intellectual Functioning: Average Suicidal Ideation: Denies SI Homicidal Ideation: Denies HI Impulse Control: Unimpaired Insight and Judgment: Normal insight and judgment, Memory: Normal, Attention: Normal, Orientation: Alert, oriented, Assessment and Plan (1) Illicit drug use (2) Noncompliance with other medical treatments and regimen Treatment Plan MEDICATIONS: Risks, benefits and alternatives of medications discussed with the patient, questions answered and consent obtained from patient. PSYCHOTHERAPY: Supportive psychotherapy provided MEDICAL: Per primary team DELIRIUM PRECAUTIONS: Please re-orient patient frequently, keep lights on during the day, and minimize benzodiazepines and opiates as these medications could worsen patient's confusion. ASSOCIATE PROFESSOR OF BIOSTATISTICS: DISPOSITION: Do not Recommend acute inpatient psychiatric hospitalization at this time. Case discussed with Dr. Ulrich who agrees with current disposition LEGAL STATUS: 1013 rescinded FOLLOW-UP: Will sign off Thank you for the consult. Please contact with any questions and/or concerns. Medications and Allergies Allergies Allergy/AdvReac Type Severity Reaction Status Date / Time Penicillins Allergy Hives Verified 10/28/20 08:25 Home Medications Medication Instructions Recorded Confirmed Last Taken Type Quetiapine Fumarate [SEROquel] 500 mg PO QHS 10/11/20 10/28/20 Unknown History FLUoxetine [PROzac] 20 mg PO QAM #30 capsule 10/16/20 10/28/20 Unknown Rx Pantoprazole [Protonix] 40 mg PO QDAY 10/28/20 10/28/20 Unknown History Temazepam [Restoril] 30 mg PO QAM 10/28/20 10/28/20 Unknown History Mental Status Exam - Vital signs Last Vital Signs Temp 98.4 F 10/29/20 08:37 Pulse 84 10/29/20 08:37 Resp 20 10/29/20 08:37 BP 136/78 10/29/20 08:37 Pulse Ox 99 10/29/20 08:37 Results Result Diagrams: 10/28/20 09:29 10/28/20 09:29 Abnormal lab results 10/28/20 10/28/20 Range/Units 09:29 09:29 Salicylates < 0.3 L (2.8-20.0) mg/dL Acetaminophen < 5.0 L (10.0-30.0) ug/mL All other labs normal.
--- NOTE | 2020-10-29 13:46 | Electrocardiograph Report ---
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
== END 2020-10-29 14:36 | disposition home or self-care (01) ==
LOC: ED 08:17
DX: R45.851 Suicidal ideations (principal); K21.9 Gastro-esophageal reflux disease without esophagitis; F20.9 Schizophrenia, unspecified; F14.10 Cocaine abuse, uncomplicated; I10 Essential (primary) hypertension; E11.9 Type 2 diabetes mellitus without complications; Z98.890 Other specified postprocedural states; Z88.0 Allergy status to penicillin; Z79.899 Other long term (current) drug therapy
CPT/HCPCS: 36415; 80053; 80307; 83690; 84484; 85025; 93005; 96361; 96374; 96375; 99284; J2405; J3010; J7030; 80320; G0480

== ENCOUNTER 2020-10-29 18:53 | Emergency (ER) | payer MEDICAID ==
[2020-10-29] MEDS ORDERED: SODIUM CHLORIDE 0.9% 1000 ML 1,000 ML IV ONE (19:11)
--- NOTE | 2020-10-29 19:15 | Emergency Department Report ---
ED Alcohol HPI - General Chief Complaint: Alcohol Stated Complaint: CP Time Seen by Provider: 10/29/20 19:10 Source: EMS Mode of arrival: Stretcher Limitations: No Limitations - History of Present Illness Initial Comments: Patient is 54 years old male with history of paranoid schizophrenia, chronic alcoholism, hypertension and diabetes. Patient brought to the emergency room via EMS after patient was found laying on a side road. Patient with a strong smell of alcohol. Patient is obtunded. Patient was released from the emergency room this morning. MD Complaint: alcohol intoxication Chronic Alcohol Use: Yes - Related Data Home Medications Medication Instructions Recorded Confirmed Last Taken Quetiapine Fumarate [SEROquel] 500 mg PO QHS 10/11/20 10/28/20 Unknown Pantoprazole [Protonix] 40 mg PO QDAY 10/28/20 10/28/20 Unknown Temazepam [Restoril] 30 mg PO QAM 10/28/20 10/28/20 Unknown Previous Rx's Medication Instructions Recorded Last Taken Type FLUoxetine [PROzac] 20 mg PO QAM #30 capsule 10/16/20 Unknown Rx Allergies Allergy/AdvReac Type Severity Reaction Status Date / Time Penicillins Allergy Hives Verified 10/28/20 08:25 ED Review of Systems ROS: Stated complaint: CP Other details as noted in HPI Comment: All other systems reviewed and negative Constitutional: denies: chills, fever Respiratory: denies: cough, shortness of breath, SOB with exertion Cardiovascular: denies: chest pain, palpitations Gastrointestinal: denies: abdominal pain, nausea, vomiting Musculoskeletal: denies: back pain ED Past Medical Hx - Past Medical History Hx Hypertension: Yes Hx Congestive Heart Failure: No Hx Diabetes: Yes Hx Renal Disease: No Hx Arthritis: No Hx Seizures: No Hx Psychiatric Treatment: Yes (Schizophrenia, Paranoid) Hx Asthma: No Hx COPD: No Hx Dementia: No Additional medical history: Umbillical hernia, colon polyps. colaspe lung/ CIRRHOIS, pancreatitis, ETOH abuse, esophagitis, hiatal hernia - Surgical History Hx Cholecystectomy: No Hx Appendectomy: No Additional Surgical History: ankle right surgery, Hernia - Social History Smoking Status: Unknown if ever smoked Substance Use Type: Alcohol - Medications Home Medications: Home Medications Medication Instructions Recorded Confirmed Last Taken Type Quetiapine Fumarate [SEROquel] 500 mg PO QHS 10/11/20 10/28/20 Unknown History FLUoxetine [PROzac] 20 mg PO QAM #30 capsule 10/16/20 10/28/20 Unknown Rx Pantoprazole [Protonix] 40 mg PO QDAY 10/28/20 10/28/20 Unknown History Temazepam [Restoril] 30 mg PO QAM 10/28/20 10/28/20 Unknown History ED Physical Exam - General Limitations: No Limitations General appearance: appears intoxicated - Head Head exam: Present: atraumatic, normocephalic, normal inspection - Eye Eye exam: Present: normal appearance - ENT ENT exam: Present: normal exam, normal orophraynx, mucous membranes moist - Neck Neck exam: Present: normal inspection, full ROM. Absent: tenderness, meningismus - Respiratory Respiratory exam: Present: normal lung sounds bilaterally - Cardiovascular Cardiovascular Exam: Present: regular rate, normal rhythm, normal heart sounds - GI/Abdominal GI/Abdominal exam: Present: soft, normal bowel sounds. Absent: distended, tenderness, guarding, rebound, rigid - Extremities Exam Extremities exam: Present: normal inspection - Back Exam Back exam: Present: normal inspection, full ROM. Absent: CVA tenderness (R), CVA tenderness (L) - Neurological Exam Neurological exam: Present: alert, oriented X3, CN II-XII intact - Skin Skin exam: Present: warm, intact, normal color ED Course Vital Signs 10/29/20 10/29/20 10/29/20 15:06 19:22 19:30 Pulse Rate 90 88 Respiratory 16 11 L Rate Blood Pressure 127/102 127/102 O2 Sat by Pulse 99 93 94 Oximetry 10/29/20 10/29/20 10/29/20 19:46 20:00 20:20 Pulse Rate 87 94 H Respiratory 13 Rate Blood Pressure 175/143 175/143 127/102 O2 Sat by Pulse 94 95 Oximetry 10/29/20 10/29/20 10/29/20 20:30 20:46 21:00 Pulse Rate Respiratory 12 11 L 17 Rate Blood Pressure 127/102 115/68 153/84 O2 Sat by Pulse 98 99 98 Oximetry 10/29/20 10/29/20 10/29/20 21:16 21:30 21:46 Pulse Rate 87 96 H 88 Respiratory 24 21 13 Rate Blood Pressure 153/84 153/84 153/84 O2 Sat by Pulse 82 L 97 95 Oximetry 10/29/20 10/29/20 10/29/20 22:00 22:16 22:30 Pulse Rate 90 89 89 Respiratory 15 22 11 L Rate Blood Pressure 153/84 129/63 119/75 O2 Sat by Pulse 98 98 98 Oximetry 10/29/20 10/29/20 10/29/20 22:46 23:00 23:16 Pulse Rate 87 85 83 Respiratory 10 L 10 L 10 L Rate Blood Pressure 119/75 119/75 106/73 O2 Sat by Pulse 97 95 93 Oximetry ED Medical Decision Making - Lab Data Result diagrams: 10/29/20 19:23 10/29/20 19:23 - Medical Decision Making Patient is 54 years old male with history of paranoid schizophrenia, chronic alcoholism, hypertension and diabetes. Patient brought to the emergency room via EMS after patient was found laying on a side road. Patient with a strong smell of alcohol. Patient is obtunded. Patient was released from the emergency room this morning. Labs reviewed and is unremarkable except for alcohol level of 0.09. Repeated alcohol level is 0.03. Patient will be discharged home to follow-up with his primary care physician for further management. Critical care attestation.: If time is entered above; I have spent that time in minutes in the direct care of this critically ill patient, excluding procedure time. ED Disposition Clinical Impression: Alcohol intoxication Disposition: DC-01 TO HOME OR SELFCARE Is pt being admited?: No Condition: Stable Instructions: Alcohol Intoxication
[2020-10-29 19:52] LABS: Basophils % (Auto) 0.3 % (0.0-1.8); Eosinophils # (Auto) 0.1 K/mm3 (0.0-0.4); Eosinophils % (Auto) 1.1 % (0.0-4.3); Hematocrit 28.5 % (35.5-45.6); Hemoglobin 8.8 gm/dl (11.8-15.2); Lymphocytes # (Auto) 1.2 K/mm3 (1.2-5.4); Mean Corpuscular HGB Conc 31 % (32-34); Mean Corpuscular Volume 75 fl (84-94); Monocytes # (Auto) 0.5 K/mm3 (0.0-0.8); Monocytes % (Auto) 8.1 % (0.0-7.3); Platelet Count 272 K/mm3 (140-440); Red Blood Count 3.83 M/mm3 (3.65-5.03); Red Cell Distribution Width 19.1 % (13.2-15.2)
[2020-10-29 20:07] LABS: BUN/Creatinine Ratio 11; Blood Urea Nitrogen 14 mg/dL (9-20); Calcium 8.9 mg/dL (8.4-10.2); Hemolysis Index 1
[2020-10-30 01:20] VITALS: BP 124/79
== END 2020-10-30 01:30 | disposition home or self-care (01) ==
LOC: ED 18:53
DX: F10.129 Alcohol abuse with intoxication, unspecified (principal); I10 Essential (primary) hypertension; E11.9 Type 2 diabetes mellitus without complications; F20.9 Schizophrenia, unspecified; Z98.890 Other specified postprocedural states; Z79.899 Other long term (current) drug therapy; Z88.0 Allergy status to penicillin
CPT/HCPCS: 36415; 80048; 80053; 80307; 80320; 83690; 84484; 85025; 93005; 96361; 96374; 96375; G0480; J2405; J3010; J7030

== ENCOUNTER 2020-10-30 11:48 | Emergency (ER) | payer MEDICAID ==
--- NOTE | 2020-10-30 12:23 | Emergency Department Report ---
ED Altered Mental Status HPI - General Chief Complaint: Medical Clearance Stated Complaint: ALTERED MENTAL STATUS PUI?: No Time Seen by Provider: 10/30/20 11:56 Source: patient Mode of arrival: Wheelchair Limitations: No Limitations - History of Present Illness Initial Comments: CC: altered mental status HPI: This is a 54 yo male with hx of schizophrenia, alcohol dependence, GERD, pancreatitis, GI bleed who presents wtih altered mental status. Patient was discharged last night for alcohol intoxication. He was found lethargic in the waiting room. He was brought to a treatment for reassessment. According to EMR, patient has been evalated 6 previous occasions. Patient is resting comfortably. Appears comfortable. Patient is in no distress. MD Complaint: altered mental status, decreased responsiveness -: This morning Severity: mild Consistency of Symptoms: waxing and waning Context: alcohol abuse Associated Symptoms: denies other symptoms - Related Data Home Medications Medication Instructions Recorded Confirmed Last Taken Quetiapine Fumarate [SEROquel] 500 mg PO QHS 10/11/20 10/28/20 Unknown Pantoprazole [Protonix] 40 mg PO QDAY 10/28/20 10/28/20 Unknown Temazepam [Restoril] 30 mg PO QAM 10/28/20 10/28/20 Unknown Previous Rx's Medication Instructions Recorded Last Taken Type FLUoxetine [PROzac] 20 mg PO QAM #30 capsule 10/16/20 Unknown Rx Allergies Allergy/AdvReac Type Severity Reaction Status Date / Time Penicillins Allergy Hives Verified 10/28/20 08:25 ED Review of Systems ROS: Stated complaint: ALTERED MENTAL STATUS Other details as noted in HPI Comment: Unobtainable due to pts medical conditions (altered mental status) ED Past Medical Hx - Past Medical History Previous Medical History?: Yes Hx Hypertension: Yes Hx Congestive Heart Failure: No Hx Diabetes: Yes Hx Renal Disease: No Hx Arthritis: No Hx Seizures: No Hx Psychiatric Treatment: Yes (Schizophrenia, Paranoid) Hx Asthma: No Hx COPD: No Hx Dementia: No Additional medical history: Umbillical hernia, colon polyps. colaspe lung/ CIRRHOIS, pancreatitis, ETOH abuse, esophagitis, hiatal hernia - Surgical History Past Surgical History?: Yes Hx Cholecystectomy: No Hx Appendectomy: No Additional Surgical History: ankle right surgery, Hernia - Social History Smoking Status: Never Smoker Substance Use Type: Alcohol - Medications Home Medications: Home Medications Medication Instructions Recorded Confirmed Last Taken Type Quetiapine Fumarate [SEROquel] 500 mg PO QHS 10/11/20 10/28/20 Unknown History FLUoxetine [PROzac] 20 mg PO QAM #30 capsule 10/16/20 10/28/20 Unknown Rx Pantoprazole [Protonix] 40 mg PO QDAY 10/28/20 10/28/20 Unknown History Temazepam [Restoril] 30 mg PO QAM 10/28/20 10/28/20 Unknown History ED Physical Exam - General Limitations: No Limitations General appearance: in no apparent distress, lethargic, other (legs crossed at the ankle, arms folded, arousable but not cooperativew) - Head Head exam: Present: atraumatic, normocephalic - Eye Eye exam: Present: normal appearance - ENT ENT exam: Present: mucous membranes moist - Neck Neck exam: Present: normal inspection, full ROM - Respiratory Respiratory exam: Present: normal lung sounds bilaterally. Absent: respiratory distress, wheezes, rales, rhonchi - Cardiovascular Cardiovascular Exam: Present: regular rate, normal rhythm, normal heart sounds. Absent: systolic murmur, diastolic murmur, rubs, gallop - GI/Abdominal GI/Abdominal exam: Present: soft, normal bowel sounds. Absent: distended, tenderness, guarding, rebound - Rectal Rectal exam: Present: deferred - Extremities Exam Extremities exam: Present: normal inspection - Neurological Exam Neurological exam: Present: altered - Skin Skin exam: Present: warm, dry, intact, normal color. Absent: rash ED Course Vital Signs 10/30/20 12:32 Temperature 98 F Pulse Rate 80 Respiratory 16 Rate Blood Pressure 151/91 [Left] O2 Sat by Pulse 100 Oximetry - Lab Data Result diagrams: 10/30/20 12:16 10/30/20 12:16 Lab Results 10/30/20 10/30/20 10/30/20 Range/Units 12:16 12:16 12:16 WBC 7.2 (4.5-11.0) K/mm3 RBC 4.14 (3.65-5.03) M/mm3 Hgb 9.3 L (11.8-15.2) gm/dl Hct 30.1 L (35.5-45.6) % MCV 73 L (84-94) fl MCH 23 L (28-32) pg MCHC 31 L (32-34) % RDW 19.6 H (13.2-15.2) % Plt Count 310 (140-440) K/mm3 Lymph % (Auto) 19.9 (13.4-35.0) % [place] % (Auto) 11.8 H (0.0-7.3) % Eos % (Auto) 0.9 (0.0-4.3) % Baso % (Auto) 0.4 (0.0-1.8) % Lymph # (Auto) 1.4 (1.2-5.4) K/mm3 [place] # (Auto) 0.8 (0.0-0.8) K/mm3 Eos # (Auto) 0.1 (0.0-0.4) K/mm3 Baso # (Auto) 0.0 (0.0-0.1) K/mm3 Seg Neutrophils % 67.0 (40.0-70.0) % Seg Neutrophils # 4.8 (1.8-7.7) K/mm3 Sodium (137-145) mmol/L Potassium (3.6-5.0) mmol/L Chloride (98-107) mmol/L Carbon Dioxide (22-30) mmol/L Anion Gap mmol/L BUN (9-20) mg/dL Creatinine (0.8-1.3) mg/dL Estimated GFR ml/min BUN/Creatinine Ratio % Glucose (75-100) mg/dL Calcium (8.4-10.2) mg/dL Total Bilirubin (0.1-1.2) mg/dL AST (5-40) units/L ALT (7-56) units/L Alkaline Phosphatase (35-129) units/L Total Protein (6.3-8.2) g/dL Albumin (3.9-5) g/dL Albumin/Globulin Ratio % Salicylates < 0.3 L (2.8-20.0) mg/dL Acetaminophen 5.0 L (10.0-30.0) ug/mL Plasma/Serum Alcohol (0-0.07) % 10/30/20 10/30/20 Range/Units 12:16 12:16 WBC (4.5-11.0) K/mm3 RBC (3.65-5.03) M/mm3 Hgb (11.8-15.2) gm/dl Hct (35.5-45.6) % MCV (84-94) fl MCH (28-32) pg MCHC (32-34) % RDW (13.2-15.2) % Plt Count (140-440) K/mm3 Lymph % (Auto) (13.4-35.0) % [place] % (Auto) (0.0-7.3) % Eos % (Auto) (0.0-4.3) % Baso % (Auto) (0.0-1.8) % Lymph # (Auto) (1.2-5.4) K/mm3 [place] # (Auto) (0.0-0.8) K/mm3 Eos # (Auto) (0.0-0.4) K/mm3 Baso # (Auto) (0.0-0.1) K/mm3 Seg Neutrophils % (40.0-70.0) % Seg Neutrophils # (1.8-7.7) K/mm3 Sodium 138 (137-145) mmol/L Potassium 4.1 (3.6-5.0) mmol/L Chloride 103.0 (98-107) mmol/L Carbon Dioxide 23 (22-30) mmol/L Anion Gap 16 mmol/L BUN 12 (9-20) mg/dL Creatinine 0.8 (0.8-1.3) mg/dL Estimated GFR > 60 ml/min BUN/Creatinine Ratio 15 % Glucose 97 (75-100) mg/dL Calcium 9.2 (8.4-10.2) mg/dL Total Bilirubin 0.20 (0.1-1.2) mg/dL AST 22 (5-40) units/L ALT 20 (7-56) units/L Alkaline Phosphatase 93 (35-129) units/L Total Protein 7.0 (6.3-8.2) g/dL Albumin 3.7 L (3.9-5) g/dL Albumin/Globulin Ratio 1.1 % Salicylates (2.8-20.0) mg/dL Acetaminophen (10.0-30.0) ug/mL Plasma/Serum Alcohol < 0.01 (0-0.07) % - Medical Decision Making Altered Mental Statu: Patient was observed by nursing staff to be appropriate. He stood up on his own. He changed clothes. He is easily arousable. He was able to give me his address. He insists on sleeping. However he does not have an acute medical condition which needs further treatment. He has not altered. He just chooses to sleep. CBC chemistry serum toxicology all within normal limits. Critical care attestation.: If time is entered above; I have spent that time in minutes in the direct care of this critically ill patient, excluding procedure time. ED Disposition Clinical Impression: Schizophrenia Disposition: DC-01 TO HOME OR SELFCARE Is pt being admited?: No Does the pt Need Aspirin: No Condition: Stable
[2020-10-30 12:33] VITALS: BP 151/91
[2020-10-30 12:33] LABS: Basophils % (Auto) 0.4 % (0.0-1.8); Eosinophils # (Auto) 0.1 K/mm3 (0.0-0.4); Eosinophils % (Auto) 0.9 % (0.0-4.3); Hematocrit 30.1 % (35.5-45.6); Hemoglobin 9.3 gm/dl (11.8-15.2); Lymphocytes # (Auto) 1.4 K/mm3 (1.2-5.4); Lymphocytes % (Auto) 19.9 % (13.4-35.0); Mean Corpuscular HGB Conc 31 % (32-34); Mean Corpuscular Volume 73 fl (84-94); Monocytes # (Auto) 0.8 K/mm3 (0.0-0.8); Monocytes % (Auto) 11.8 % (0.0-7.3); Platelet Count 310 K/mm3 (140-440); Red Blood Count 4.14 M/mm3 (3.65-5.03); Red Cell Distribution Width 19.6 % (13.2-15.2)
[2020-10-30 13:08] LABS: Alanine Aminotransferase 20 units/L (7-56); Albumin 3.7 g/dL (3.9-5); BUN/Creatinine Ratio 15; Blood Urea Nitrogen 12 mg/dL (9-20); Calcium 9.2 mg/dL (8.4-10.2); Hemolysis Index 2
== END 2020-10-30 19:06 | disposition home or self-care (01) ==
LOC: ED 11:48
DX: F20.0 Paranoid schizophrenia (principal); I10 Essential (primary) hypertension; E11.9 Type 2 diabetes mellitus without complications; Z79.899 Other long term (current) drug therapy; Z88.0 Allergy status to penicillin; Z98.890 Other specified postprocedural states
CPT/HCPCS: 36415; 80048; 80053; 80307; 80320; 83690; 84484; 85025; 93005; 96361; 96374; 96375; G0480; J2405; J3010; J7030

== ENCOUNTER 2020-10-30 23:42 | Emergency (ER) | payer MEDICAID ==
[2020-10-31] MEDS ORDERED: SODIUM CHLORIDE 0.9% 1000 ML 1,000 ML IV ONE (01:01)
[2020-10-31 01:21] LABS: Basophils # (Auto) 0.1 K/mm3 (0.0-0.1); Basophils % (Auto) 0.9 % (0.0-1.8); Eosinophils # (Auto) 0.1 K/mm3 (0.0-0.4); Eosinophils % (Auto) 0.7 % (0.0-4.3); Hematocrit 28.8 % (35.5-45.6); Hemoglobin 9.1 gm/dl (11.8-15.2); Lymphocytes # (Auto) 1.3 K/mm3 (1.2-5.4); Lymphocytes % (Auto) 14.1 % (13.4-35.0); Mean Corpuscular HGB Conc 32 % (32-34); Mean Corpuscular Volume 73 fl (84-94); Monocytes # (Auto) 0.8 K/mm3 (0.0-0.8); Monocytes % (Auto) 8.5 % (0.0-7.3); Platelet Count 292 K/mm3 (140-440); Red Blood Count 3.96 M/mm3 (3.65-5.03); Red Cell Distribution Width 19.4 % (13.2-15.2)
[2020-10-31 01:45] LABS: Alanine Aminotransferase 17 units/L (7-56); Albumin 3.8 g/dL (3.9-5); BUN/Creatinine Ratio 10; Blood Urea Nitrogen 11 mg/dL (9-20); Calcium 9.2 mg/dL (8.4-10.2); Hemolysis Index 1
[2020-10-31] MEDS ORDERED: ACETAMINOPHEN 500 MG TAB ONE (03:52)
[2020-10-31 03:53] VITALS: BP 110/61
[2020-10-31] MEDS ORDERED: ACETAMINOPHEN 500 MG TAB PO ONE (03:54)
== END 2020-10-31 08:18 | disposition left against medical advice (07) ==
LOC: ED 23:42
DX: M54.2 Cervicalgia (principal); Z53.21 Procedure and treatment not carried out due to patient leaving prior to being seen by health care provider
CPT/HCPCS: 36415; 80048; 80053; 80307; 83690; 84484; 85025; 93005; 96361; 96374; 96375; 99284; J2405; J3010; J7030; 80320; G0480

== ENCOUNTER 2020-10-31 11:52 | Emergency (ER) | payer MEDICAID ==
--- NOTE | 2020-10-31 14:19 | Emergency Department Report ---
Blank Doc - Documentation Documentation: This is a 54-year-old male that was brought by [facility] for weakness. Patient sta blu has been drinking alcohol since discharge previously. Otherwise denies any other complaints. 1- This initial assessment/diagnostic orders/clinical plan/ treatment(s) is/are subject to change based on pt's health status, clinical progression and re- assessment by fellow clinical providers in the ED. Further treatment and workup at subsequent clinical provers discretion. Patient/guardians urged not to elope from ED as their condition may be serious if not clinically assessed and managed. 2-labs 3-UA
[2020-10-31 15:14] LABS: Basophils # (Auto) 0.1 K/mm3 (0.0-0.1); Basophils % (Auto) 1.1 % (0.0-1.8); Eosinophils # (Auto) 0.1 K/mm3 (0.0-0.4); Eosinophils % (Auto) 1.6 % (0.0-4.3); Hematocrit 29.9 % (35.5-45.6); Hemoglobin 9.3 gm/dl (11.8-15.2); Lymphocytes # (Auto) 1.7 K/mm3 (1.2-5.4); Lymphocytes % (Auto) 25.7 % (13.4-35.0); Mean Corpuscular HGB Conc 31 % (32-34); Mean Corpuscular Volume 73 fl (84-94); Monocytes # (Auto) 0.8 K/mm3 (0.0-0.8); Monocytes % (Auto) 11.7 % (0.0-7.3); Platelet Count 269 K/mm3 (140-440); Red Blood Count 4.08 M/mm3 (3.65-5.03)
[2020-10-31 15:37] LABS: Alanine Aminotransferase 17 units/L (7-56); Albumin 3.4 g/dL (3.9-5); BUN/Creatinine Ratio 12; Blood Urea Nitrogen 11 mg/dL (9-20); Calcium 8.8 mg/dL (8.4-10.2); Hemolysis Index 8
[2020-10-31 15:41] LABS: Red Cell Distribution Width 20.1 % (13.2-15.2)
[2020-10-31 16:32] LABS: Bilirubin,Urine NEG (Negative); Blood,Urine NEG (Negative); Color,Urine Yellow (Yellow); Protein,Urine <15 mg/dL mg/dL (Negative); Urobilinogen,Urine < 2.0 mg/dL (<2.0)
[2020-10-31 16:40] LABS: Amphetamine Screen,Urine Negative; Cannabinoid Screen,Urine Negative; Opiate Screen,Urine Negative
--- NOTE | 2020-10-31 16:43 | Emergency Department Report ---
ED General Adult HPI - General Chief complaint: Weakness Stated complaint: WEAKNESS PUI?: No Time Seen by Provider: 10/31/20 14:05 Source: EMS Mode of arrival: Wheelchair Limitations: No Limitations - History of Present Illness Initial comments: Chief complaint: "I need socks." HPI: This is a 44-year-old male with alcohol dependence, schizophrenia, liver cirrhosis, pancreatitis, esophagitis, hiatal hernia, hypertension who was found sleeping on a bench by landing signal officer. He denies any pain. I evaluated this patient yesterday. After sleeping several hours in the emergency department, he thinks the nurse are being "very kind to me". Patient denies any suicidal homicidal ideation. No auditory hallucinations. -: This afternoon Severity scale (0 -10): 0 Improves with: none Worsens with: none Associated Symptoms: denies other symptoms - Related Data Home Medications Medication Instructions Recorded Confirmed Last Taken Quetiapine Fumarate [SEROquel] 500 mg PO QHS 10/11/20 10/28/20 Unknown Pantoprazole [Protonix] 40 mg PO QDAY 10/28/20 10/28/20 Unknown Temazepam [Restoril] 30 mg PO QAM 10/28/20 10/28/20 Unknown Previous Rx's Medication Instructions Recorded Last Taken Type FLUoxetine [PROzac] 20 mg PO QAM #30 capsule 10/16/20 Unknown Rx Allergies Allergy/AdvReac Type Severity Reaction Status Date / Time Penicillins Allergy Hives Verified 10/31/20 13:49 ED Review of Systems ROS: Stated complaint: WEAKNESS Other details as noted in HPI Comment: All other systems reviewed and negative Constitutional: denies: fever, malaise Respiratory: denies: cough, shortness of breath Gastrointestinal: denies: abdominal pain, nausea, vomiting Psychiatric: depression. denies: auditory hallucinations, visual hallu cinations, homicidal thoughts, suicidal thoughts ED Past Medical Hx - Past Medical History Previous Medical History?: Yes Hx Hypertension: Yes Hx Congestive Heart Failure: No Hx Diabetes: Yes Hx Renal Disease: No Hx Arthritis: No Hx Seizures: No Hx Psychiatric Treatment: Yes (Schizophrenia, Paranoid) Hx Asthma: No Hx COPD: No Hx Dementia: No Additional medical history: Umbillical hernia, colon polyps. colaspe lung/ CIRRHOIS, pancreatitis, ETOH abuse, esophagitis, hiatal hernia - Surgical History Past Surgical History?: Yes Hx Cholecystectomy: No Hx Appendectomy: No Additional Surgical History: ankle right surgery, Hernia - Social History Smoking Status: Current Some Day Smoker Substance Use Type: Alcohol - Medications Home Medications: Home Medications Medication Instructions Recorded Confirmed Last Taken Type Quetiapine Fumarate [SEROquel] 500 mg PO QHS 10/11/20 10/28/20 Unknown History FLUoxetine [PROzac] 20 mg PO QAM #30 capsule 10/16/20 10/28/20 Unknown Rx Pantoprazole [Protonix] 40 mg PO QDAY 10/28/20 10/28/20 Unknown History Temazepam [Restoril] 30 mg PO QAM 10/28/20 10/28/20 Unknown History ED Physical Exam - General Limitations: No Limitations General appearance: alert, in no apparent distress, other (Disheveled, poor hygiene) - Head Head exam: Present: atraumatic, normocephalic - Eye Eye exam: Present: normal appearance - ENT ENT exam: Present: mucous membranes moist - Neck Neck exam: Present: normal inspection, full ROM - Respiratory Respiratory exam: Present: normal lung sounds bilaterally. Absent: respiratory distress, wheezes, rales, rhonchi - Cardiovascular Cardiovascular Exam: Present: regular rate, normal rhythm, normal heart sounds. Absent: systolic murmur, diastolic murmur, rubs, gallop - GI/Abdominal GI/Abdominal exam: Present: soft, normal bowel sounds. Absent: distended, tenderness, guarding, rebound - Rectal Rectal exam: Present: deferred - Extremities Exam Extremities exam: Present: normal inspection - Neurological Exam Neurological exam: Present: alert, oriented X3 - Psychiatric Psychiatric exam: Present: depressed, flat affect - Skin Skin exam: Present: warm, dry, intact, normal color. Absent: rash ED Course Vital Signs 10/31/20 10/31/20 10/31/20 15:32 16:01 20:13 Temperature 98.3 F 98 F Pulse Rate 66 89 Respiratory 18 16 18 Rate Blood Pressure 117/72 139/81 [Right] O2 Sat by Pulse 96 94 Oximetry 11/01/20 04:20 Temperature Pulse Rate Respiratory 18 Rate Blood Pressure [Right] O2 Sat by Pulse 98 Oximetry ED Medical Decision Making - Lab Data Result diagrams: 10/31/20 14:53 10/31/20 14:53 Laboratory Results - last 24 hr 10/31/20 10/31/20 10/31/20 14:53 14:53 14:53 WBC 6.6 RBC 4.08 Hgb 9.3 L Hct 29.9 L MCV 73 L MCH 23 L MCHC 31 L RDW 20.1 H Plt Count 269 Lymph % (Auto) 25.7 [place] % (Auto) 11.7 H Eos % (Auto) 1.6 Baso % (Auto) 1.1 Lymph # (Auto) 1.7 [place] # (Auto) 0.8 Eos # (Auto) 0.1 Baso # (Auto) 0.1 Seg Neutrophils % 59.9 Seg Neutrophils # 4.0 Sodium 135 L Potassium 4.0 Chloride 104.3 Carbon Dioxide 22 Anion Gap 13 BUN 11 Creatinine 0.9 Estimated GFR > 60 BUN/Creatinine Ratio 12 Glucose 95 Calcium 8.8 Total Bilirubin 0.20 AST 17 ALT 17 Alkaline Phosphatase 84 Total Creatine Kinase 178 H Total Protein 6.6 Albumin 3.4 L Albumin/Globulin Ratio 1.1 Urine Color Urine Turbidity Urine pH Ur Specific [place] Urine Protein Urine Glucose (UA) Urine Ketones Urine Blood Urine Nitrite Urine Bilirubin Urine Urobilinogen Ur Leukocyte Esterase Urine WBC (Auto) Urine RBC (Auto) Salicylates < 0.3 L Urine Opiates Screen Acetaminophen Ur Barbiturates Screen Ur Phencyclidine Scrn Ur Amphetamines Screen U Marijuana (THC) Screen Plasma/Serum Alcohol 10/31/20 10/31/20 10/31/20 14:53 14:53 15:57 WBC RBC Hgb Hct MCV MCH MCHC RDW Plt Count Lymph % (Auto) [place] % (Auto) Eos % (Auto) Baso % (Auto) Lymph # (Auto) [place] # (Auto) Eos # (Auto) Baso # (Auto) Seg Neutrophils % Seg Neutrophils # Sodium Potassium Chloride Carbon Dioxide Anion Gap BUN Creatinine Estimated GFR BUN/Creatinine Ratio Glucose Calcium Total Bilirubin AST ALT Alkaline Phosphatase Total Creatine Kinase Total Protein Albumin Albumin/Globulin Ratio Urine Color Yellow Urine Turbidity Clear Urine pH 5.0 Ur Specific [place] 1.011 Urine Protein <15 mg/dl Urine Glucose (UA) Neg Urine Ketones Neg Urine Blood Neg Urine Nitrite Neg Urine Bilirubin Neg Urine Urobilinogen < 2.0 Ur Leukocyte Esterase Neg Urine WBC (Auto) 1.0 Urine RBC (Auto) 1.0 Salicylates Urine Opiates Screen Acetaminophen 5.0 L Ur Barbiturates Screen Ur Phencyclidine Scrn Ur Amphetamines Screen U Marijuana (THC) Screen Plasma/Serum Alcohol < 0.01 10/31/20 15:57 WBC RBC Hgb Hct MCV MCH MCHC RDW Plt Count Lymph % (Auto) [place] % (Auto) Eos % (Auto) Baso % (Auto) Lymph # (Auto) [place] # (Auto) Eos # (Auto) Baso # (Auto) Seg Neutrophils % Seg Neutrophils # Sodium Potassium Chloride Carbon Dioxide Anion Gap BUN Creatinine Estimated GFR BUN/Creatinine Ratio Glucose Calcium Total Bilirubin AST ALT Alkaline Phosphatase Total Creatine Kinase Total Protein Albumin Albumin/Globulin Ratio Urine Color Urine Turbidity Urine pH Ur Specific [place] Urine Protein Urine Glucose (UA) Urine Ketones Urine Blood Urine Nitrite Urine Bilirubin Urine Urobilinogen Ur Leukocyte Esterase Urine WBC (Auto) Urine RBC (Auto) Salicylates Urine Opiates Screen Negative Acetaminophen Ur Barbiturates Screen Negative Ur Phencyclidine Scrn Negative Ur Amphetamines Screen Negative U Marijuana (THC) Screen Negative Plasma/Serum Alcohol - Medical Decision Making This is a 53-year-old male with multiple comorbidities including alcohol dependence, paranoid schizophrenia who has not been able to take care of himself recently. He has stayed mostly in the emergency department between the treatment room and waiting room. He is eloped and returned claiming to have a drink alcohol. Considering he has not able to care for himself properly, I have requested mental health evaluation for psychiatric clearance. CBC chemistry serum toxicology screen within normal limits. Blood alcohol level negative. Urine toxicology positive for cocaine and benzodiazepine. Patient is medically clear for psychiatric care. He does not have acute emergent condition which needs further stabilization. Progress note 11/01/2020 1157 S: "hungry" O: Calm, cooperative A: Polysubstance abuse, medication noncompliance, paranoid schizophrenia P: Mental health team evaluated patient, inpatient psychiatric hospital not recommended at this time. Patient desires outpatient alcohol rehabilitation., Discharged to self-care. Critical care attestation.: If time is entered above; I have spent that time in minutes in the direct care of this critically ill patient, excluding procedure time. ED Disposition Clinical Impression: Schizophrenia, Cocaine abuse Disposition: DC-01 TO HOME OR SELFCARE Is pt being admited?: No Does the pt Need Aspirin: No Condition: Stable
[2020-10-31 17:53] LABS: Benzodiazepines Screen,Urine Positive; Cocaine Screen,Urine Positive; Methadone Screen,Urine Positive
[2020-10-31 20:13] VITALS: BP 139/81
--- NOTE | 2020-11-01 08:50 | Consultation ---
History of Present Illness - Reason for Consult Consult date: 11/01/20 Reason for consult: MHE Requesting physician: LILIBETH DUFF - History of Present Psychiatric Illness Per ED Provider: This is a 44-year-old male with alcohol dependence, schizophrenia, liver cirrhosis, pancreatitis, esophagitis, hiatal hernia, hypertension who was found sleeping on a bench by [employer] police officer. He denies any pain. I evaluated this patient yesterday. After sleeping several hours in the emergency department, he thinks the nurse are being "very kind to me". Patient denies any suicidal homicidal ideation. No auditory hallucinations. Psych HPI Patient is a 54-year-old, single, currently unemployed and SSI -[place] male with past psychiatric history of paranoid and delusional schizophrenia who presented to the ED with chief complaint of wanting drug use rehab. Per notes, patient was again picked up by EMS and brought to ED for intoxciation, patient states he needs help with his alcohol use, states he has his medications but does not use them because he drinks. Patient denies SI, or HI but wants treatment for alcohol. Informed patient that will be outpt program and withdrawal can be managed medically. PAST PSYCHIATRIC HISTORY Diagnoses: schizophrenia Suicide attempts or Self-harm behavior: Yes Prior psychiatric hospitalizations: Yes Substance Abuse history: alcohol Previous psychiatric medications tried: prozac, seroquel, vistaril Outpatient treatment: "a long time ago." PAST MEDICAL HISTORY: None reported Family Psychiatric History: None reported or documented SOCIAL HISTORY Marital Status: single Living Arrangements: homeless Employment Status: Disabled Access to guns/weapons: Denies Education: high school History of Abuse: Denies Legal History: Denies REVIEW OF SYSTEMS Constitutional: Negative for weight loss ENT: Negative for stridor Respiratory: Negative for cough or hemoptysis All other systems reviewed and are negative MENTAL STATUS EXAMINATION General Appearance and Behavior: Age appropriate, good hygiene, wearing appropriate clothes, good eye contact, cooperative polite with questioning. Cooperation: Participating/engaged Psychomotor Behavior: unremarkable and within normal limits Mood: Good Affect and affective range: congruent with mood Thought Process: Fluent/Logical, Thought Content: Within reality, Speech: Normal volume, Regular rate and rhythm, Intellectual Functioning: Average Suicidal Ideation: Denies SI Homicidal Ideation: Denies HI Impulse Control: Unimpaired Insight and Judgment: Normal insight and judgment, Memory: Normal, Attention: Normal, Orientation: Alert, oriented, Assessment and Plan (1) Illicit drug use (2) Noncompliance with other medical treatments and regimen Treatment Plan Referral resources for outpt alcohol rehab program MEDICATIONS: Risks, benefits and alternatives of medications discussed with the patient, questions answered and consent obtained from patient. PSYCHOTHERAPY: Supportive psychotherapy provided MEDICAL: Per primary team DELIRIUM PRECAUTIONS: Please re-orient patient frequently, keep lights on during the day, and minimize benzodiazepines and opiates as these medications could worsen patient's confusion. THREADER: DISPOSITION: Do not Recommend acute inpatient psychiatric hospitalization at this time. Case discussed with Dr. Ulrich who agrees with current disposition FOLLOW-UP: Will sign off Thank you for the consult. Please contact with any questions and/or concerns. Medications and Allergies Allergies Allergy/AdvReac Type Severity Reaction Status Date / Time Penicillins Allergy Hives Verified 10/31/20 13:49 Home Medications Medication Instructions Recorded Confirmed Last Taken Type Quetiapine Fumarate [SEROquel] 500 mg PO QHS 10/11/20 10/28/20 Unknown History FLUoxetine [PROzac] 20 mg PO QAM #30 capsule 10/16/20 10/28/20 Unknown Rx Pantoprazole [Protonix] 40 mg PO QDAY 10/28/20 10/28/20 Unknown History Temazepam [Restoril] 30 mg PO QAM 10/28/20 10/28/20 Unknown History Mental Status Exam - Vital signs Last Vital Signs Temp 98 F 10/31/20 20:13 Pulse 89 10/31/20 20:13 Resp 18 11/01/20 04:20 BP 139/81 10/31/20 20:13 Pulse Ox 98 11/01/20 04:20 Results Result Diagrams: 10/31/20 14:53 10/31/20 14:53 Abnormal lab results 10/31/20 10/31/20 10/31/20 Range/Units 14:53 14:53 14:53 Hgb 9.3 L (11.8-15.2) gm/dl Hct 29.9 L (35.5-45.6) % MCV 73 L (84-94) fl MCH 23 L (28-32) pg MCHC 31 L (32-34) % RDW 20.1 H (13.2-15.2) % [place] % (Auto) 11.7 H (0.0-7.3) % Sodium 135 L (137-145) mmol/L Total Creatine Kinase 178 H (55-170) units/L Albumin 3.4 L (3.9-5) g/dL Salicylates < 0.3 L (2.8-20.0) mg/dL Acetaminophen (10.0-30.0) ug/mL 10/31/20 Range/Units 14:53 Hgb (11.8-15.2) gm/dl Hct (35.5-45.6) % MCV (84-94) fl MCH (28-32) pg MCHC (32-34) % RDW (13.2-15.2) % [place] % (Auto) (0.0-7.3) % Sodium (137-145) mmol/L Total Creatine Kinase (55-170) units/L Albumin (3.9-5) g/dL Salicylates (2.8-20.0) mg/dL Acetaminophen 5.0 L (10.0-30.0) ug/mL All other labs normal.
== END 2020-11-01 12:56 | disposition home or self-care (01) ==
LOC: ED 11:52
DX: F20.0 Paranoid schizophrenia (principal); F14.10 Cocaine abuse, uncomplicated; I10 Essential (primary) hypertension; E11.9 Type 2 diabetes mellitus without complications; F17.200 Nicotine dependence, unspecified, uncomplicated; Z79.899 Other long term (current) drug therapy; Z88.0 Allergy status to penicillin; Z98.890 Other specified postprocedural states
CPT/HCPCS: 36415; 80048; 80053; 80307; 81001; 82550; 83690; 84484; 85025; 93005; 96361; 96374; 96375; 99284; J2405; J3010; J7030; 80320; G0480

== ENCOUNTER 2020-11-11 07:42 | Emergency (ER) | payer MEDICAID ==
--- NOTE | 2020-11-11 09:25 | Emergency Department Report ---
Blank Doc - Documentation Documentation: 54-year-old male that presents with abdominal pain with nausea vomiting. 1- This initial assessment/diagnostic orders/clinical plan/ treatment(s) is/are subject to change based on pt's health status, clinical progression and re- assessment by fellow clinical providers in the ED. Further treatment and workup at subsequent clinical provers discretion. Patient/guardians urged not to elope from ED as their condition may be serious if not clinically assessed and managed. 2-lab 3-UA
[2020-11-11 10:38] LABS: Basophils # (Auto) 0.1 K/mm3 (0.0-0.1); Basophils % (Auto) 0.9 % (0.0-1.8); Eosinophils # (Auto) 0.1 K/mm3 (0.0-0.4); Eosinophils % (Auto) 2.1 % (0.0-4.3); Hemoglobin 9.3 gm/dl (11.8-15.2); Lymphocytes % (Auto) 17.9 % (13.4-35.0); Mean Corpuscular HGB Conc 31 % (32-34); Mean Corpuscular Volume 72 fl (84-94); Monocytes # (Auto) 0.5 K/mm3 (0.0-0.8); Monocytes % (Auto) 9.5 % (0.0-7.3); Platelet Count 290 K/mm3 (140-440); Red Blood Count 4.16 M/mm3 (3.65-5.03); Red Cell Distribution Width 19.9 % (13.2-15.2)
[2020-11-11 11:03] LABS: Alanine Aminotransferase 21 units/L (7-56); Albumin 3.5 g/dL (3.9-5); BUN/Creatinine Ratio 11; Blood Urea Nitrogen 9 mg/dL (9-20); Calcium 8.9 mg/dL (8.4-10.2); Hemolysis Index 13
[2020-11-11] MEDS ORDERED: ONDANSETRON 4 MG/2 ML INJ IV ONE (12:15)
[2020-11-11] MEDS ORDERED: SODIUM CHLORIDE 0.9% 1000 ML 1,000 ML IV ONE (12:15)
[2020-11-11] MEDS ORDERED: MORPHINE 2 MG/1 ML INJ IV ONE (12:15)
[2020-11-11] MEDS ORDERED: PANTOPRAZOLE 40 MG INJ IV ONE ×2 (12:15→14:49)
--- NOTE | 2020-11-11 12:21 | Emergency Department Report ---
ED Abdominal Pain HPI - General Chief Complaint: Abdominal Pain Stated Complaint: STOMACH PAIN/BUMP ON ARM Time Seen by Provider: 11/11/20 08:50 Source: patient Mode of arrival: Ambulatory Limitations: No Limitations - History of Present Illness Initial Comments: This is a 54-year-old male with a history of schizophrenia and multiple visits to this emergency department for various complaints. He does admit to homelessness. He states he is getting his check tomorrow and is moving into a new apartment. He arrives complaining of abdominal pain. States his had abdominal pain for the last 24 hours at least. The pain is somewhat diffuse. He states he has a hernia and he has been taught to "push it back in". He states he cannot push it back in. He states he had surgery in [facility] approximately 2 years ago. Apparently this was for his ventral hernia. Is likely has had some recurrent problems there of an perhaps postoperative rec urrence. He also states in [place] that they apparently did an endoscopy. He is aware of his diagnosis of esophagitis. Patient is a rather poor historian. He states that he had dark stool 2 days ago that was not black. He states that he has problems with reflux. He does not report fever or chills. Patient states he takes nothing for acid reduction. He states he is not on iron. He has chronic anemia and esophagitis. He had a documented ventral hernia on previous CT here and 2019. Apparently thereafter he had a herniorrhaphy in [place]. Patient is a vague, disjunctive and rather poor historian. MD Complaint: abdominal pain -: Gradual, days(s) Location: diffuse (Anterior) Radiation: none ( nonradiating) Migration to: no migration Severity: moderate Quality: aching Consistency: constant Improves With: nothing Worsens With: other (Palpation) Context: other (Status post herniorrhaphy) Associated Symptoms: diarrhea (Possibly) - Related Data Home Medications Medication Instructions Recorded Confirmed Last Taken Quetiapine Fumarate [SEROquel] 500 mg PO QHS 10/11/20 10/28/20 Unknown Pantoprazole [Protonix] 40 mg PO QDAY 10/28/20 10/28/20 Unknown Temazepam [Restoril] 30 mg PO QAM 10/28/20 10/28/20 Unknown Previous Rx's Medication Instructions Recorded Last Taken Type FLUoxetine [PROzac] 20 mg PO QAM #30 capsule 10/16/20 Unknown Rx Ferrous Gluconate [Ferrous 324 mg PO BID #60 tablet 11/11/20 Unknown Rx Gluconate 324 MG] Lansoprazole [Prevacid] 15 mg PO BID #60 cap 11/11/20 Unknown Rx Allergies Allergy/AdvReac Type Severity Reaction Status Date / Time Penicillins Allergy Hives Verified 10/31/20 13:49 ED Review of Systems ROS: Stated complaint: STOMACH PAIN/BUMP ON ARM Other details as noted in HPI Constitutional: denies: chills, fever Eyes: denies: eye pain, vision change ENT: denies: ear pain, throat pain Respiratory: denies: cough, shortness of breath Cardiovascular: denies: chest pain, palpitations Endocrine: no symptoms reported Gastrointestinal: abdominal pain, diarrhea. denies: nausea Genitourinary: denies: urgency, dysuria Musculoskeletal: denies: back pain, arthralgia Skin: denies: rash, lesions Neurological: denies: headache, weakness, paresthesias Psychiatric: denies: anxiety, depression Hematological/Lymphatic: denies: easy bleeding, easy bruising ED Past Medical Hx - Past Medical History Hx Hypertension: Yes Hx Congestive Heart Failure: No Hx Diabetes: Yes Hx Renal Disease: No Hx Arthritis: No Hx Seizures: No Hx Psychiatric Treatment: Yes (Schizophrenia, Paranoid) Hx Asthma: No Hx COPD: No Hx Dementia: No Additional medical history: Umbillical hernia, colon polyps. colaspe lung/ CIRRHOIS, pancreatitis, ETOH abuse, esophagitis, hiatal hernia - Surgical History Hx Cholecystectomy: No Hx Appendectomy: No Additional Surgical History: ankle right surgery, Hernia - Social History Smoking Status: Never Smoker Substance Use Type: Alcohol - Medications Home Medications: Home Medications Medication Instructions Recorded Confirmed Last Taken Type Quetiapine Fumarate [SEROquel] 500 mg PO QHS 10/11/20 10/28/20 Unknown History FLUoxetine [PROzac] 20 mg PO QAM #30 capsule 10/16/20 10/28/20 Unknown Rx Pantoprazole [Protonix] 40 mg PO QDAY 10/28/20 10/28/20 Unknown History Temazepam [Restoril] 30 mg PO QAM 10/28/20 10/28/20 Unknown History Ferrous Gluconate [Ferrous 324 mg PO BID #60 tablet 11/11/20 Unknown Rx Gluconate 324 MG] Lansoprazole [Prevacid] 15 mg PO BID #60 cap 11/11/20 Unknown Rx ED Physical Exam - General Limitations: Physical Limitation General appearance: alert, in no apparent distress - Head Head exam: Present: atraumatic, normocephalic - Eye Eye exam: Present: normal appearance. Absent: scleral icterus - ENT ENT exam: Present: mucous membranes moist - Neck Neck exam: Present: normal inspection. Absent: meningismus - Respiratory Respiratory exam: Present: normal lung sounds bilaterally. Absent: respiratory distress - Cardiovascular Cardiovascular Exam: Present: regular rate, normal rhythm. Absent: systolic murmur, diastolic murmur, rubs, gallop - GI/Abdominal GI/Abdominal exam: Present: soft, distended (Question), tenderness (Diffuse), guarding (Voluntary), normal bowel sounds, hyperactive bowel sounds (Somewhat), hernia (Appears to have recurrent ventral hernia scar. Exam limited by patient lack of cooperation.). Absent: rebound, rigid - Rectal Rectal exam: Present: deferred - Extremities Exam Extremities exam: Present: normal inspection - Back Exam Back exam: Present: normal inspection - Neurological Exam Neurological exam: Present: alert, oriented X3, CN II-XII intact. Absent: motor sensory deficit - Psychiatric Psychiatric exam: Present: normal affect, normal mood - Skin Skin exam: Present: warm, dry, intact, normal color. Absent: rash ED Course Vital Signs 11/11/20 11/11/20 11/11/20 08:42 13:27 13:28 Temperature 97.8 F 97.9 F Pulse Rate 100 H 88 Respiratory 18 16 16 Rate Blood Pressure 125/67 Blood Pressure 161/97 [Right] O2 Sat by Pulse 100 100 100 Oximetry - Reevaluation(s) Reevaluation #1: Patient resting comfortably. Abdomen is benign. Patient without current complaints. Discharge planning has been reviewed. Abstinence from alcohol is encouraged. Referral to GI at [facility] is given. 11/11/20 17:19 ED Medical Decision Making - Lab Data Result diagrams: 11/11/20 09:14 11/11/20 09:14 - Radiology Data FINDINGS: Lung bases are clear of acute disease. Moderate-sized hiatal hernia. The neck of this hernia appears quite wide, and I see no evidence of complication. Liver, gallbladder, spleen and pancreas are negative. Kidneys and adrenals are unremarkable. Abdominal aorta is normal in size. Though the liver appears unremarkable, and the spleen is normal in size, there appear to be moderate varices mostly gastrohepatic in location. Pelvis Ventral, fat-containing hernias are unchanged. No significant bowel abnormalities. Urinary bladder and distal ureters are negative. Prostate is normal in size. No acute skeletal lesions. IMPRESSION: 1. History is noted. Hiatal hernia is unchanged in size and appearance from the exam 4 weeks ago. Distal esophageal wall thickening again suggests esophagitis, but this is unchanged. 2. Gastrohepatic varices, of uncertain etiology. Spleen size is normal, and there is no CT evidence of liver abnormality. Signer Name: Diego Prince MD Critical care attestation.: If time is entered above; I have spent that time in minutes in the direct care of this critically ill patient, excluding procedure time. ED Disposition Clinical Impression: Esophagitis, Gastric varices Abdominal pain Qualifiers: Abdominal location: generalized Qualified Code(s): R10.84 - Generalized abdominal pain Iron deficiency anemia Qualifiers: Iron deficiency anemia type: chronic blood loss Qualified Code(s): D50.0 - Iron deficiency anemia secondary to blood loss (chronic) Disposition: TO HOME OR SELFCARE Is pt being admited?: No Does the pt Need Aspirin: No Condition: Stable Instructions: Abdominal Pain, Adult, [id number], Esophagitis Additional Instructions: Follow-up referrals are on your chart. Return to the emergency department should you have any signs of bleeding, increased abdominal pain acute change or problem. Rx as directed for acid lowering medication and iron. Iron supplementation may cause darkening stool. However if you have any frankly black or bloody stools he should go to the emergency department immediately. Prescriptions: Ferrous Gluconate [Ferrous Gluconate 324 MG] 324 mg PO BID #60 tablet Lansoprazole [Prevacid] 15 mg PO BID #60 cap Referrals: PRIMARY CAREM[facility] [Primary Care Provider] - 3-5 Days [facility] [Provider Group] - 3-[address] [facility] [Provider Group] - 2-3 Days Time of Disposition: 17:26
--- NOTE | 2020-11-11 15:49 | Cat Scan Report ---
CT abdomen pelvis w con INDICATION: MAIN. TECHNIQUE: All CT scans at this location are performed using CT dose reduction for ALARA by means of automated e xposure control. COMPARISON: 10/10/2020 FINDINGS: Lung bases are clear of acute disease. Moderate-sized hiatal hernia. The neck of this hernia appears quite wide, and I see no evidence of complication. Liver, gallbladder, spleen and pancreas are negative. Kidneys and adrenals are unremarkable. Abdomina l aorta is normal in size. Though the liver appears unremarkable, and the spleen is normal in size, there appear to be moderate varices mostly gastrohepatic in location. Pelvis Ventral, fat-containing hernias are unchanged. No significant bowel abnormalities. Urinary bladder an d distal ureters are negative. Prostate is normal in size. No acute skeletal lesions. IMPRESSION: 1. History is noted. Hiatal hernia is unchanged in size and appearance from the exam 4 weeks ago. Dis sonny esophageal wall thickening again suggests esophagitis, but this is unchanged. 2. Gastrohepatic varices, of uncertain etiology. Spleen size is normal, and there is no CT evidence o f liver abnormality. Signer Name: Diego Prince MD Signed: 11/11/2020 3:44 PM Workstation Name: [id number]
[2020-11-11 17:56] VITALS: BP 145/95
== END 2020-11-11 17:56 | disposition home or self-care (01) ==
LOC: ED 07:42
DX: D50.9 Iron deficiency anemia, unspecified (principal); K20.90 Esophagitis, unspecified without bleeding; I86.4 Gastric varices; R10.84 Generalized abdominal pain; I10 Essential (primary) hypertension; E11.9 Type 2 diabetes mellitus without complications; F20.9 Schizophrenia, unspecified; Z98.890 Other specified postprocedural states; Z79.899 Other long term (current) drug therapy; Z88.0 Allergy status to penicillin
CPT/HCPCS: 36415; 74177; 80053; 83690; 85025; 96361; 96374; 96375; 99284; C9113; J2270; J2405; J7030; Q9967; 80320; G0480

== ENCOUNTER 2020-11-17 09:40 | Emergency (ER) | payer MEDICAID ==
[2020-11-17 10:35] LABS: Basophils % (Auto) 0.3 % (0.0-1.8); Eosinophils % (Auto) 0.3 % (0.0-4.3); Hemoglobin 10.5 gm/dl (11.8-15.2); Lymphocytes # (Auto) 1.4 K/mm3 (1.2-5.4); Lymphocytes % (Auto) 19.2 % (13.4-35.0); Mean Corpuscular HGB Conc 31 % (32-34); Mean Corpuscular Volume 73 fl (84-94); Monocytes # (Auto) 0.7 K/mm3 (0.0-0.8); Platelet Count 333 K/mm3 (140-440); Red Cell Distribution Width 19.8 % (13.2-15.2)
[2020-11-17 10:45] LABS: Blood Urea Nitrogen 4 mg/dL (9-20); Calcium 8.7 mg/dL (8.4-10.2); Hemolysis Index 0
[2020-11-17 10:56] LABS: BUN/Creatinine Ratio 6
[2020-11-17] MEDS ORDERED: POTASSIUM CHLORIDE ER 20 MEQ TAB PO ONE (12:22)
--- NOTE | 2020-11-17 12:42 | Emergency Department Report ---
HPI - General Chief Complaint: Psych Time Seen by Provider: 11/17/20 12:21 - HPI HPI: This is a 54-year-old -[place] male presents to the emergency department for a mental health evaluation. Patient says that his mother about 1 week ago. Patient stopped taking his psychiatric medications and has been having auditory hallucinations "telling me to kill myself." He does not have any particular plan as to how he would harm himself. He denies any visual hallucinations or homicidal ideations. After the patient stopped taking his medications, the friend that he was staying with kicked him out of the house and brought him here for evaluation. He has a history of diabetes, hypertension, cirrhosis of the liver, esophagitis, and chronic alcohol abuse/dependence. He has a psychiatric history of schizophrenia. ED Past Medical Hx - Past Medical History Previous Medical History?: Yes Hx Hypertension: Yes Hx Congestive Heart Failure: No Hx Diabetes: Yes Hx Renal Disease: No Hx Arthritis: No Hx Seizures: No Hx Psychiatric Treatment: Yes (Schizophrenia, Paranoid) Hx Asthma: No Hx COPD: No Hx Dementia: No Additional medical history: Umbillical hernia, colon polyps. colaspe lung/ CIRRHOIS, pancreatitis, ETOH abuse, esophagitis, hiatal hernia - Surgical History Past Surgical History?: Yes Hx Cholecystectomy: No Hx Appendectomy: No Additional Surgical History: ankle right surgery, Hernia - Social History Smoking Status: Never Smoker Substance Use Type: Alcohol - Medications Home Medications: Home Medications Medication Instructions Recorded Confirmed Last Taken Type Quetiapine Fumarate [SEROquel] 500 mg PO QHS 10/11/20 10/28/20 Unknown History FLUoxetine [PROzac] 20 mg PO QAM #30 capsule 10/16/20 10/28/20 Unknown Rx Pantoprazole [Protonix] 40 mg PO QDAY 10/28/20 10/28/20 Unknown History Temazepam [Restoril] 30 mg PO QAM 10/28/20 10/28/20 Unknown History Ferrous Gluconate [Ferrous 324 mg PO BID #60 tablet 11/11/20 Unknown Rx Gluconate 324 MG] Lansoprazole [Prevacid] 15 mg PO BID #60 cap 11/11/20 Unknown Rx ED Review of Systems ROS: Stated complaint: MH EVAL Other details as noted in HPI Comment: All other systems reviewed and negative Constitutional: denies: chills, fever Eyes: denies: eye pain, vision change ENT: denies: ear pain, throat pain Respiratory: denies: cough, shortness of breath Cardiovascular: denies: chest pain, palpitations Gastrointestinal: denies: abdominal pain, vomiting Genitourinary: denies: dysuria, discharge Musculoskeletal: denies: back pain, arthralgia Skin: denies: rash, lesions Neurological: denies: headache, weakness Psychiatric: auditory hallucinations, suicidal thoughts. denies: visual hallucinations, homicidal thoughts Physical Exam - Physical Exam Vital Signs: Vital Signs 11/17/20 09:46 Temperature 97.7 F Pulse Rate 113 H Respiratory 20 Rate Blood Pressure 134/84 O2 Sat by Pulse 96 Oximetry Physical Exam: GENERAL: The patient is well-developed well-nourished. HENT: Normocephalic. Atraumatic. Patient has moist mucous membranes. EYES: Extraocular motions are intact. NECK: Supple. Trachea is midline. CHEST/LUNGS: Clear to auscultation. There is no respiratory distress noted. HEART/CARDIOVASCULAR: Regular. There is no tachycardia. There is no murmur. ABDOMEN: Abdomen is soft, nontender. Patient has normal bowel sounds. SKIN: Skin is warm and dry. NEURO: The patient is awake, alert, and oriented. The patient is cooperative. The patient has no focal neurologic deficits. Normal speech. MUSCULOSKELETAL: There is no tenderness or deformity. There is no limitation range of motion. ED Course Vital Signs 11/17/20 09:46 Temperature 97.7 F Pulse Rate 113 H Respiratory 20 Rate Blood Pressure 134/84 O2 Sat by Pulse 96 Oximetry ED Medical Decision Making - Lab Data Result diagrams: 11/17/20 10:14 11/17/20 10:14 Lab Results 11/17/20 11/17/20 11/17/20 Range/Units 10:14 10:14 10:14 WBC (4.5-11.0) K/mm3 RBC (3.65-5.03) M/mm3 Hgb (11.8-15.2) gm/dl Hct (35.5-45.6) % MCV (84-94) fl MCH (28-32) pg MCHC (32-34) % RDW (13.2-15.2) % Plt Count (140-440) K/mm3 Lymph % (Auto) (13.4-35.0) % [place] % (Auto) (0.0-7.3) % Eos % (Auto) (0.0-4.3) % Baso % (Auto) (0.0-1.8) % Lymph # (Auto) (1.2-5.4) K/mm3 [place] # (Auto) (0.0-0.8) K/mm3 Eos # (Auto) (0.0-0.4) K/mm3 Baso # (Auto) (0.0-0.1) K/mm3 Seg Neutrophils % (40.0-70.0) % Seg Neutrophils # (1.8-7.7) K/mm3 Sodium 137 (137-145) mmol/L Potassium 3.0 L (3.6-5.0) mmol/L Chloride 94.0 L (98-107) mmol/L Carbon Dioxide 25 (22-30) mmol/L Anion Gap 21 mmol/L BUN 4 L (9-20) mg/dL Creatinine 0.7 L (0.8-1.3) mg/dL Estimated GFR > 60 ml/min BUN/Creatinine Ratio 6 % Glucose 126 H (75-100) mg/dL Calcium 8.7 (8.4-10.2) mg/dL Urine Color (Yellow) Urine Turbidity (Clear) Urine pH (5.0-7.0) Ur Specific [place] (1.003-1.030) Urine Protein (Negative) mg/dL Urine Glucose (UA) (Negative) mg/dL Urine Ketones (Negative) mg/dL Urine Blood (Negative) Urine Nitrite (Negative) Urine Bilirubin (Negative) Urine Urobilinogen (<2.0) mg/dL Ur Leukocyte Esterase (Negative) Urine WBC (Auto) (0.0-6.0) /HPF Urine RBC (Auto) (0.0-6.0) /HPF U Epithel Cells (Auto) (0-13.0) /HPF Salicylates < 0.3 L (2.8-20.0) mg/dL Urine Opiates Screen Urine Methadone Screen Acetaminophen 5.0 L (10.0-30.0) ug/mL Ur Barbiturates Screen Ur Phencyclidine Scrn Ur Amphetamines Screen U Benzodiazepines Scrn Urine Cocaine Screen U Marijuana (THC) Screen Drugs of Abuse Note Plasma/Serum Alcohol (0-0.07) % 11/17/20 11/17/20 11/17/20 Range/Units 10:14 10:14 Unknown WBC 7.4 (4.5-11.0) K/mm3 RBC 4.70 (3.65-5.03) M/mm3 Hgb 10.5 L (11.8-15.2) gm/dl Hct 34.0 L (35.5-45.6) % MCV 73 L (84-94) fl MCH 22 L (28-32) pg MCHC 31 L (32-34) % RDW 19.8 H (13.2-15.2) % Plt Count 333 (140-440) K/mm3 Lymph % (Auto) 19.2 (13.4-35.0) % [place] % (Auto) 9.0 H (0.0-7.3) % Eos % (Auto) 0.3 (0.0-4.3) % Baso % (Auto) 0.3 (0.0-1.8) % Lymph # (Auto) 1.4 (1.2-5.4) K/mm3 [place] # (Auto) 0.7 (0.0-0.8) K/mm3 Eos # (Auto) 0.0 (0.0-0.4) K/mm3 Baso # (Auto) 0.0 (0.0-0.1) K/mm3 Seg Neutrophils % 71.2 H (40.0-70.0) % Seg Neutrophils # 5.3 (1.8-7.7) K/mm3 Sodium (137-145) mmol/L Potassium (3.6-5.0) mmol/L Chloride (98-107) mmol/L Carbon Dioxide (22-30) mmol/L Anion Gap mmol/L BUN (9-20) mg/dL Creatinine (0.8-1.3) mg/dL Estimated GFR ml/min BUN/Creatinine Ratio % Glucose (75-100) mg/dL Calcium (8.4-10.2) mg/dL Urine Color Straw (Yellow) Urine Turbidity Clear (Clear) Urine pH 7.0 (5.0-7.0) Ur Specific [place] 1.003 (1.003-1.030) Urine Protein <15 mg/dl (Negative) mg/dL Urine Glucose (UA) Neg (Negative) mg/dL Urine Ketones Neg (Negative) mg/dL Urine Blood Neg (Negative) Urine Nitrite Neg (Negative) Urine Bilirubin Neg (Negative) Urine Urobilinogen < 2.0 (<2.0) mg/dL Ur Leukocyte Esterase Tr (Negative) Urine WBC (Auto) 1.0 (0.0-6.0) /HPF Urine RBC (Auto) 1.0 (0.0-6.0) /HPF U Epithel Cells (Auto) < 1.0 (0-13.0) /HPF Salicylates (2.8-20.0) mg/dL Urine Opiates Screen Urine Methadone Screen Acetaminophen (10.0-30.0) ug/mL Ur Barbiturates Screen Ur Phencyclidine Scrn Ur Amphetamines Screen U Benzodiazepines Scrn Urine Cocaine Screen U Marijuana (THC) Screen Drugs of Abuse Note Plasma/Serum Alcohol 0.12 H (0-0.07) % 11/17/20 Range/Units Unknown WBC (4.5-11.0) K/mm3 RBC (3.65-5.03) M/mm3 Hgb (11.8-15.2) gm/dl Hct (35.5-45.6) % MCV (84-94) fl MCH (28-32) pg MCHC (32-34) % RDW (13.2-15.2) % Plt Count (140-440) K/mm3 Lymph % (Auto) (13.4-35.0) % [place] % (Auto) (0.0-7.3) % Eos % (Auto) (0.0-4.3) % Baso % (Auto) (0.0-1.8) % Lymph # (Auto) (1.2-5.4) K/mm3 [place] # (Auto) (0.0-0.8) K/mm3 Eos # (Auto) (0.0-0.4) K/mm3 Baso # (Auto) (0.0-0.1) K/mm3 Seg Neutrophils % (40.0-70.0) % Seg Neutrophils # (1.8-7.7) K/mm3 Sodium (137-145) mmol/L Potassium (3.6-5.0) mmol/L Chloride (98-107) mmol/L Carbon Dioxide (22-30) mmol/L Anion Gap mmol/L BUN (9-20) mg/dL Creatinine (0.8-1.3) mg/dL Estimated GFR ml/min BUN/Creatinine Ratio % Glucose (75-100) mg/dL Calcium (8.4-10.2) mg/dL Urine Color (Yellow) Urine Turbidity (Clear) Urine pH (5.0-7.0) Ur Specific [place] (1.003-1.030) Urine Protein (Negative) mg/dL Urine Glucose (UA) (Negative) mg/dL Urine Ketones (Negative) mg/dL Urine Blood (Negative) Urine Nitrite (Negative) Urine Bilirubin (Negative) Urine Urobilinogen (<2.0) mg/dL Ur Leukocyte Esterase (Negative) Urine WBC (Auto) (0.0-6.0) /HPF Urine RBC (Auto) (0.0-6.0) /HPF U Epithel Cells (Auto) (0-13.0) /HPF Salicylates (2.8-20.0) mg/dL Urine Opiates Screen Negative Urine Methadone Screen Negative Acetaminophen (10.0-30.0) ug/mL Ur Barbiturates Screen Negative Ur Phencyclidine Scrn Negative Ur Amphetamines Screen Negative U Benzodiazepines Scrn Negative Urine Cocaine Screen Negative U Marijuana (THC) Screen Negative Drugs of Abuse Note Disclamer Plasma/Serum Alcohol (0-0.07) % - Medical Decision Making This patient presents to the emergency department today with a complaint of depression and suicidal ideations. For this reason he has been made a 1013 and placed on an ED hold. The patient's labs were mostly unremarkable except for hypokalemia with a potassium of 3, and some mild alcohol intoxication with a blood alcohol level of 0.12. At this point he is down below the legal limit. He was given potassium chloride for his hypokalemia. Patient was seen by the psychiatric beam doffer who, at least for now, agrees with the plan for psychiatric placement. If the patient is negative for Covid, he may go to the [facility] psych unit, or his disposition will be reevaluated by the psychiatric nurse practitioner tomorrow. At this point I consider this patient medically cleared for psychiatric placement. Critical Care Time: No Critical care attestation.: If time is entered above; I have spent that time in minutes in the direct care of this critically ill patient, excluding procedure time. ED Disposition Clinical Impression: Suicidal ideations, Hypokalemia Disposition: [id number] PSY HOSP/PSY UNIT Is pt being admited?: No Condition: Stable Time of Disposition: 16:06
[2020-11-17 15:43] LABS: Bilirubin,Urine NEG (Negative); Blood,Urine NEG (Negative); Color,Urine Straw (Yellow); Protein,Urine <15 mg/dL mg/dL (Negative); Urobilinogen,Urine < 2.0 mg/dL (<2.0)
[2020-11-17 15:49] LABS: Amphetamine Screen,Urine Negative; Benzodiazepines Screen,Urine Negative; Cannabinoid Screen,Urine Negative; Cocaine Screen,Urine Negative; Methadone Screen,Urine Negative; Opiate Screen,Urine Negative
[2020-11-17] MEDS ORDERED: LORazepam 2 MG TAB PO PRN ×2 (17:38)
[2020-11-17] MEDS ORDERED: ONDANSETRON 4 MG ODT TAB PO ONE (17:38)
[2020-11-18 08:42] VITALS: BP 146/84
[2020-11-18] MEDS ORDERED: DEXTROSE 50% IN WATER (25GM) 50 ML VIAL IV PRN (10:26)
--- NOTE | 2020-11-18 10:40 | Consultation ---
History of Present Illness - Reason for Consult Consult date: 11/18/20 Reason for consult: SI - History of Present Psychiatric Illness Per ED Note: This is a 54-year-old -[place] male presents to the emergency department for a mental health evaluation. Patient says that his mother about 1 week ago. Patient stopped taking his psychiatric me dications and has been having auditory hallucinations "telling me to kill myself." He does not have any particular plan as to how he would harm himself. He denies any visual hallucinations or homicidal ideations. After the patient stopped taking his medications, the friend that he was staying with kicked him out of the house and brought him here for evaluation. He has a history of diabetes, hypertension, cirrhosis of the liver, esophagitis, and chronic alcohol abuse/dependence. He has a psychiatric history of schizophrenia. Kang Cruz is a 54y/o male patient who is known to me. The patient's complaints seem to be based off of his living conditions. He is a/o x 3. He is c ricardo and cooperative. The patient was just admitted to the inpatient unit a month ago. The patient is a chronic alcoholic and is noncompliant with his medical regimen. He says he stopped taking his medications last week. This is something he does quite often. He has had multiple ER visits. During my interview with the patient he verbalizes being depressed stating his mom last week. He also verbalized using alcohol a lot. He denies hallucinations at present, but states he did yesterday. The patient initially tells me he lives alone. He then says "I don't have anywhere to go if I leave here." He says dealing with his situation is what makes him suicidal. The patient is asking if he can get help finding a place. PAST PSYCHIATRIC HISTORY Diagnoses: schizophrenia Suicide attempts or Self-harm behavior: Yes Prior psychiatric hospitalizations: Yes Substance Abuse history: alcohol Previous psychiatric medications tried: prozac, seroquel, vistaril Outpatient treatment: "a long time ago." PAST MEDICAL HISTORY: None reported Family Psychiatric History: None reported or documented SOCIAL HISTORY Marital Status: single Living Arrangements: homeless Employment Status: Disabled Access to guns/weapons: Denies Education: high school History of Abuse: Denies Legal History: Denies REVIEW OF SYSTEMS Constitutional: Negative for weight loss ENT: Negative for stridor Respiratory: Negative for cough or hemoptysis All other systems reviewed and are negative MENTAL STATUS EXAMINATION General Appearance and Behavior: Age appropriate, good hygiene, wearing appropriate clothes, good eye contact, calm and cooperative Cooperation: Participating/engaged Psychomotor Behavior: Psychomotor normal Mood: depressed Affect and affective range: congruent with stated mood Thought Process: Goal directed Thought Content: None Speech: normal tone and pace Suicidal Ideation: Denies at present, states dealing with his situation makes him this way Homicidal Ideation: Denies Hallucinations: Denies Delusions: None elicited Impulse Control: Impaired Insight and Judgment: impaired insight and judgment Memory: Impaired Attention: impaired Orientation: Alert, oriented Assessment and Plan (1) Schizophrenia (2) Noncompliance with other medical treatments and regimen Treatment Plan d/c 1013 Case management consulted. It is my clinical opinion the patient will need some form of placement due to his history. If not he will continue to use the ER as means of temporary half-way. No scripts given Continued home medications agree with [facility] Sitter: Per primary Medical: Per primary Disposition: Do not recommend acute psychiatric inpatient at this time. Case management to see the patient prior to discharge The assessors to further discuss safety plan, and place resources to assist the patient (CBT, alcohol rehab, med assistance program, outpatient psych, shelters, group homes.) Will sign off. Thank you for this consult Case staffed with Dr. Ulrich Medications and Allergies Allergies Allergy/AdvReac Type Severity Reaction Status Date / Time Penicillins Allergy Hives Verified 10/31/20 13:49 Home Medications Medication Instructions Recorded Confirmed Last Taken Type Quetiapine Fumarate [SEROquel] 500 mg PO QHS 10/11/20 10/28/20 Unknown History FLUoxetine [PROzac] 20 mg PO QAM #30 capsule 10/16/20 10/28/20 Unknown Rx Pantoprazole [Protonix] 40 mg PO QDAY 10/28/20 10/28/20 Unknown History Temazepam [Restoril] 30 mg PO QAM 10/28/20 10/28/20 Unknown History Ferrous Gluconate [Ferrous 324 mg PO BID #60 tablet 11/11/20 Unknown Rx Gluconate 324 MG] Lansoprazole [Prevacid] 15 mg PO BID #60 cap 11/11/20 Unknown Rx Active Meds: Active Medications Dextrose (Dextrose 50% In Water (25gm) 50 Ml Vial) 50 gm IV Q30MIN PRN; Protocol PRN Reason: Hypoglycemia Ferrous Gluconate (Ferrous Gluconate 324 Mg Tab) 324 mg PO BID JOAN Lorazepam (Lorazepam 2 Mg Tab) 2 mg PO Q1HR PRN PRN Reason: CIWA-Ar 8-15 Lorazepam (Lorazepam 2 Mg Tab) 4 mg PO Q1HR PRN PRN Reason: CIWA-Ar 16-25 Last Admin: 11/17/20 17:44 Dose: 4 mg Documented by: Pantoprazole Sodium (Pantoprazole 40 Mg Tab) 40 mg PO QDAY JOAN Potassium Chloride (Potassium Chloride Er 20 Meq Tab) 40 meq PO QDAY JOAN Mental Status Exam - Vital signs Last Vital Signs Temp 98.6 F 11/18/20 08:00 Pulse 80 11/18/20 08:00 Resp 18 11/18/20 08:00 BP 146/84 11/18/20 08:00 Pulse Ox 98 11/18/20 08:00 Results Result Diagrams: 11/17/20 10:14 11/17/20 10:14 Abnormal lab results 11/17/20 11/17/20 11/17/20 Range/Units 10:14 10:14 10:14 Potassium 3.0 L (3.6-5.0) mmol/L Chloride 94.0 L (98-107) mmol/L BUN 4 L (9-20) mg/dL Creatinine 0.7 L (0.8-1.3) mg/dL Glucose 126 H (75-100) mg/dL Salicylates < 0.3 L (2.8-20.0) mg/dL Acetaminophen 5.0 L (10.0-30.0) ug/mL Plasma/Serum Alcohol (0-0.07) % 11/17/20 Range/Units 10:14 Potassium (3.6-5.0) mmol/L Chloride (98-107) mmol/L BUN (9-20) mg/dL Creatinine (0.8-1.3) mg/dL Glucose (75-100) mg/dL Salicylates (2.8-20.0) mg/dL Acetaminophen (10.0-30.0) ug/mL Plasma/Serum Alcohol 0.12 H (0-0.07) % All other labs normal.
[2020-11-18] MEDS ORDERED: PANTOPRAZOLE 40 MG TAB PO SCH (11:00)
[2020-11-18] MEDS ORDERED: POTASSIUM CHLORIDE ER 20 MEQ TAB PO SCH (11:00)
--- NOTE | 2020-11-18 11:03 | Event Note ---
Date: 11/18/20 The patient was evaluated in the emergency department for symptoms described in the history of present illness. He/she was evaluated in the context of the global COVID-19 pandemic, which necessitated consideration that the patient might be at risk for infection with the virus that causes COVID-19. Institutional protocols and algorithms that pertain to the evaluation of patients at risk for COVID-19 are in a state of rapid change based on information released by regulatory bodies including the CDC and federal and state organizations. These policies and algorithms were followed during the patient's care in the emergency department. Please note that these policies, procedures and recommendations changed on a rapid basis. Patient resting comfortably in stretcher at this time, and in no acute distress. Initial ER documentation reviewed and appreciated. Psychiatric recommendations are reviewed and appreciated. It is likely that this patient is presenting for the purposes of usp, food, and secondary gain. His 1013 was discontinued by the psychiatry team. He was deemed medically cleared on his initial ER evaluation. Nursing team indicates the patient has been resting comfortably this morning, with no acute complaints. The patient is clinically sober. He will be written for discharge, with appropriate outpatient medications. A case management consultation is placed, to assist this patient with options for homeless shelters. Vital Signs 11/17/20 11/17/20 11/17/20 09:46 13:00 20:18 Temperature 97.7 F 99.3 F Pulse Rate 113 H 100 H 109 H Respiratory 20 20 18 Rate Blood Pressure 134/84 Blood Pressure 144/93 129/88 [Left] O2 Sat by Pulse 96 100 97 Oximetry 11/18/20 11/18/20 11/18/20 00:42 01:59 08:00 Temperature 98.9 F 98.6 F Pulse Rate 98 H 80 Respiratory 18 18 18 Rate Blood Pressure Blood Pressure 112/76 146/84 [Left] O2 Sat by Pulse 98 96 98 Oximetry Vital Signs 11/17/20 11/17/20 11/17/20 09:46 13:00 20:18 Temperature 97.7 F 99.3 F Pulse Rate 113 H 100 H 109 H Respiratory 20 20 18 Rate Blood Pressure 134/84 Blood Pressure 144/93 129/88 [Left] O2 Sat by Pulse 96 100 97 Oximetry 11/18/20 11/18/20 11/18/20 00:42 01:59 08:00 Temperature 98.9 F 98.6 F Pulse Rate 98 H 80 Respiratory 18 18 18 Rate Blood Pressure Blood Pressure 112/76 146/84 [Left] O2 Sat by Pulse 98 96 98 Oximetry Lab Results 11/17/20 11/17/20 11/17/20 Range/Units 10:14 10:14 10:14 WBC (4.5-11.0) K/mm3 RBC (3.65-5.03) M/mm3 Hgb (11.8-15.2) gm/dl Hct (35.5-45.6) % MCV (84-94) fl MCH (28-32) pg MCHC (32-34) % RDW (13.2-15.2) % Plt Count (140-440) K/mm3 Lymph % (Auto) (13.4-35.0) % [facility] % (Auto) (0.0-7.3) % Eos % (Auto) (0.0-4.3) % Baso % (Auto) (0.0-1.8) % Lymph # (Auto) (1.2-5.4) K/mm3 [facility] # (Auto) (0.0-0.8) K/mm3 Eos # (Auto) (0.0-0.4) K/mm3 Baso # (Auto) (0.0-0.1) K/mm3 Seg Neutrophils % (40.0-70.0) % Seg Neutrophils # (1.8-7.7) K/mm3 Sodium 137 (137-145) mmol/L Potassium 3.0 L (3.6-5.0) mmol/L Chloride 94.0 L (98-107) mmol/L Carbon Dioxide 25 (22-30) mmol/L Anion Gap 21 mmol/L BUN 4 L (9-20) mg/dL Creatinine 0.7 L (0.8-1.3) mg/dL Estimated GFR > 60 ml/min BUN/Creatinine Ratio 6 % Glucose 126 H (75-100) mg/dL Calcium 8.7 (8.4-10.2) mg/dL Urine Color (Yellow) Urine Turbidity (Clear) Urine pH (5.0-7.0) Ur Specific Effie (1.003-1.030) Urine Protein (Negative) mg/dL Urine Glucose (UA) (Negative) mg/dL Urine Ketones (Negative) mg/dL Urine Blood (Negative) Urine Nitrite (Negative) Urine Bilirubin (Negative) Urine Urobilinogen (<2.0) mg/dL Ur Leukocyte Esterase (Negative) Urine WBC (Auto) (0.0-6.0) /HPF Urine RBC (Auto) (0.0-6.0) /HPF U Epithel Cells (Auto) (0-13.0) /HPF Salicylates < 0.3 L (2.8-20.0) mg/dL Urine Opiates Screen Urine Methadone Screen Acetaminophen 5.0 L (10.0-30.0) ug/mL Ur Barbiturates Screen Ur Phencyclidine Scrn Ur Amphetamines Screen U Benzodiazepines Scrn Urine Cocaine Screen U Marijuana (THC) Screen Drugs of Abuse Note Plasma/Serum Alcohol (0-0.07) % 11/17/20 11/17/20 11/17/20 Range/Units 10:14 10:14 Unknown WBC 7.4 (4.5-11.0) K/mm3 RBC 4.70 (3.65-5.03) M/mm3 Hgb 10.5 L (11.8-15.2) gm/dl Hct 34.0 L (35.5-45.6) % MCV 73 L (84-94) fl MCH 22 L (28-32) pg MCHC 31 L (32-34) % RDW 19.8 H (13.2-15.2) % Plt Count 333 (140-440) K/mm3 Lymph % (Auto) 19.2 (13.4-35.0) % [facility] % (Auto) 9.0 H (0.0-7.3) % Eos % (Auto) 0.3 (0.0-4.3) % Baso % (Auto) 0.3 (0.0-1.8) % Lymph # (Auto) 1.4 (1.2-5.4) K/mm3 [facility] # (Auto) 0.7 (0.0-0.8) K/mm3 Eos # (Auto) 0.0 (0.0-0.4) K/mm3 Baso # (Auto) 0.0 (0.0-0.1) K/mm3 Seg Neutrophils % 71.2 H (40.0-70.0) % Seg Neutrophils # 5.3 (1.8-7.7) K/mm3 Sodium (137-145) mmol/L Potassium (3.6-5.0) mmol/L Chloride (98-107) mmol/L Carbon Dioxide (22-30) mmol/L Anion Gap mmol/L BUN (9-20) mg/dL Creatinine (0.8-1.3) mg/dL Estimated GFR ml/min BUN/Creatinine Ratio % Glucose (75-100) mg/dL Calcium (8.4-10.2) mg/dL Urine Color Straw (Yellow) Urine Turbidity Clear (Clear) Urine pH 7.0 (5.0-7.0) Ur Specific Effie 1.003 (1.003-1.030) Urine Protein <15 mg/dl (Negative) mg/dL Urine Glucose (UA) Neg (Negative) mg/dL Urine Ketones Neg (Negative) mg/dL Urine Blood Neg (Negative) Urine Nitrite Neg (Negative) Urine Bilirubin Neg (Negative) Urine Urobilinogen < 2.0 (<2.0) mg/dL Ur Leukocyte Esterase Tr (Negative) Urine WBC (Auto) 1.0 (0.0-6.0) /HPF Urine RBC (Auto) 1.0 (0.0-6.0) /HPF U Epithel Cells (Auto) < 1.0 (0-13.0) /HPF Salicylates (2.8-20.0) mg/dL Urine Opiates Screen Urine Methadone Screen Acetaminophen (10.0-30.0) ug/mL Ur Barbiturates Screen Ur Phencyclidine Scrn Ur Amphetamines Screen U Benzodiazepines Scrn Urine Cocaine Screen U Marijuana (THC) Screen Drugs of Abuse Note Plasma/Serum Alcohol 0.12 H (0-0.07) % 11/17/20 Range/Units Unknown WBC (4.5-11.0) K/mm3 RBC (3.65-5.03) M/mm3 Hgb (11.8-15.2) gm/dl Hct (35.5-45.6) % MCV (84-94) fl MCH (28-32) pg MCHC (32-34) % RDW (13.2-15.2) % Plt Count (140-440) K/mm3 Lymph % (Auto) (13.4-35.0) % [facility] % (Auto) (0.0-7.3) % Eos % (Auto) (0.0-4.3) % Baso % (Auto) (0.0-1.8) % Lymph # (Auto) (1.2-5.4) K/mm3 [facility] # (Auto) (0.0-0.8) K/mm3 Eos # (Auto) (0.0-0.4) K/mm3 Baso # (Auto) (0.0-0.1) K/mm3 Seg Neutrophils % (40.0-70.0) % Seg Neutrophils # (1.8-7.7) K/mm3 Sodium (137-145) mmol/L Potassium (3.6-5.0) mmol/L Chloride (98-107) mmol/L Carbon Dioxide (22-30) mmol/L Anion Gap mmol/L BUN (9-20) mg/dL Creatinine (0.8-1.3) mg/dL Estimated GFR ml/min BUN/Creatinine Ratio % Glucose (75-100) mg/dL Calcium (8.4-10.2) mg/dL Urine Color (Yellow) Urine Turbidity (Clear) Urine pH (5.0-7.0) Ur Specific Effie (1.003-1.030) Urine Protein (Negative) mg/dL Urine Glucose (UA) (Negative) mg/dL Urine Ketones (Negative) mg/dL Urine Blood (Negative) Urine Nitrite (Negative) Urine Bilirubin (Negative) Urine Urobilinogen (<2.0) mg/dL Ur Leukocyte Esterase (Negative) Urine WBC (Auto) (0.0-6.0) /HPF Urine RBC (Auto) (0.0-6.0) /HPF U Epithel Cells (Auto) (0-13.0) /HPF Salicylates (2.8-20.0) mg/dL Urine Opiates Screen Negative Urine Methadone Screen Negative Acetaminophen (10.0-30.0) ug/mL Ur Barbiturates Screen Negative Ur Phencyclidine Scrn Negative Ur Amphetamines Screen Negative U Benzodiazepines Scrn Negative Urine Cocaine Screen Negative U Marijuana (THC) Screen Negative Drugs of Abuse Note Disclamer Plasma/Serum Alcohol (0-0.07) %
[2020-11-18] MEDS ORDERED: FERROUS GLUCONATE 324 MG TAB PO SCH (12:00)
[2020-11-18] MEDS ORDERED: QUEtiapine 100 MG TAB PO SCH (22:00)
[2020-11-19] MEDS ORDERED: FLUoxetine 20 MG CAP PO SCH (10:00)
== END 2020-11-18 11:30 | disposition home or self-care (01) ==
LOC: ED 09:40
DX: R45.851 Suicidal ideations (principal); Z20.822 Contact with and (suspected) exposure to COVID-19; E87.6 Hypokalemia; I10 Essential (primary) hypertension; E11.9 Type 2 diabetes mellitus without complications; Z98.890 Other specified postprocedural states; Z79.899 Other long term (current) drug therapy; Z88.0 Allergy status to penicillin
CPT/HCPCS: 36415; 80048; 80307; 81001; 85025; 99284; U0003; 80320; G0480; Q0162

== ENCOUNTER 2020-11-22 19:19 | Emergency (ER) | payer MEDICAID ==
[2020-11-22] MEDS ORDERED: SODIUM CHLORIDE 0.9% 1000 ML 1,000 ML IV ONE (20:44)
[2020-11-22 21:05] LABS: Basophils # (Auto) 0.1 K/mm3 (0.0-0.1); Basophils % (Auto) 0.8 % (0.0-1.8); Eosinophils # (Auto) 0.1 K/mm3 (0.0-0.4); Eosinophils % (Auto) 1.3 % (0.0-4.3); Hematocrit 26.9 % (35.5-45.6); Hemoglobin 8.5 gm/dl (11.8-15.2); Lymphocytes # (Auto) 1.8 K/mm3 (1.2-5.4); Lymphocytes % (Auto) 25.2 % (13.4-35.0); Mean Corpuscular HGB Conc 32 % (32-34); Mean Corpuscular Volume 73 fl (84-94); Monocytes # (Auto) 0.8 K/mm3 (0.0-0.8); Platelet Count 253 K/mm3 (140-440); Red Blood Count 3.71 M/mm3 (3.65-5.03)
[2020-11-22 21:29] LABS: Alanine Aminotransferase 10 units/L (7-56); Albumin 3.3 g/dL (3.9-5); BUN/Creatinine Ratio 10; Blood Urea Nitrogen 8 mg/dL (9-20); Calcium 8.7 mg/dL (8.4-10.2); Hemolysis Index 3
--- NOTE | 2020-11-22 21:31 | Cat Scan Report ---
NONENHANCED CT SCAN OF THE HEAD: INDICATION / CLINICAL INFORMATION: 54 years Male; Altered mental status. TECHNIQUE: Routine CT head without contrast. All CT scans at this location are performed using CT dos e reduction for ALARA by means of automated exposure control. COMPARISON: CT scan of the head from 10/10/2020 FINDINGS: BRAIN / INTRACRANIAL CONTENTS: No acute hemorrhage, mass effect, midline shift, hydrocephalus, or acu te, large territorial infarct. No chronic infarct or focal atrophy. Normal brain volume and ventricul ar/sulcal size for age. No significant white matter abnormality. CRANIOCERVICAL JUNCTION: No significant abnormality. ORBITS: No significant abnormality of visualized orbits. SINUSES / MASTOIDS: No significant abnormality of the visualized paranasal sinuses or mastoid air shu ls. ADDITIONAL FINDINGS: None. IMPRESSION: No focal parenchymal lesion Signer Name: Salinas Jones MD Signed: 11/22/2020 9:27 PM Workstation Name: [id number]
--- NOTE | 2020-11-22 21:49 | XRay Report ---
CHEST 1 VIEW 11/22/2020 8:40 PM INDICATION / CLINICAL INFORMATION: Altered mental status. COMPARISON: 10/19/2020 FINDINGS: SUPPORT DEVICES: None. HEART / MEDIASTINUM: Stable. LUNGS / PLEURA: Low lung volumes with crowding of the bronchovascular markings. Left costophrenic sul cus is difficult to visualize likely secondary to suboptimal inspiration and projection. No significa nt pulmonary parenchymal or pleural abnormality is visualized. No pneumothorax. ADDITIONAL FINDINGS: No significant additional findings. IMPRESSION: 1. No acute findings. Signer Name: Luis Keller MD Signed: 11/22/2020 9:45 PM Workstation Name: [id number]
--- NOTE | 2020-11-23 00:28 | Emergency Department Report ---
ED Altered Mental Status HPI - General Chief Complaint: Altered Mental Status Stated Complaint: MENTAL HEALTH EVALUATION Time Seen by Provider: 11/22/20 20:36 Source: RN/MD Mode of arrival: Wheelchair Limitations: Altered Mental Status - History of Present Illness Initial Comments: Patient is a 54-year-old F [place] male was brought in for possible mental health assessment. According to paramedics he was just acting abnormally although no other information was given regarding where the patient came from or he has any past medical history. Patient is in the room took his shoes off late in the bed and then has been asleep since. Is given no additional history at this time. No additional nurses notes. Patient was here on 11/17/2020 and was found to be malingering. Likely here seeking custodial. - Related Data Home Medications Medication Instructions Recorded Confirmed Last Taken Quetiapine Fumarate [SEROquel] 300 mg PO QHS 10/11/20 11/25/20 Unknown Temazepam [Restoril] 30 mg PO QAM 10/28/20 10/28/20 Unknown Amlodipine Besylate [Norvasc] 5 mg PO 11/25/20 Unknown Previous Rx's Medication Instructions Recorded Last Taken Type FLUoxetine [PROzac] 20 mg PO QAM #30 capsule 10/16/20 Unknown Rx Multivitamin with Folic Acid [[facility] 400 mcg PO QDAY #30 tablet 11/18/20 Unknown Rx One Daily Essential Tablet] Pantoprazole [Protonix TAB] 40 mg PO QDAY #30 11/18/20 Unknown Rx Potassium Chloride [K-Dur] 20 meq PO BID #30 tab 11/18/20 Unknown Rx chlordiazePOXIDE [Librium] 25 mg PO Q6H PRN #25 capsule 11/18/20 Unknown Rx Allergies Allergy/AdvReac Type Severity Reaction Status Date / Time Penicillins Allergy Hives Verified 10/31/20 13:49 ED Review of Systems ROS: Stated complaint: MENTAL HEALTH EVALUATION Other details as noted in HPI Comment: Unobtainable due to pts medical conditions ED Past Medical Hx - Past Medical History Hx Hypertension: Yes Hx Congestive Heart Failure: No Hx Diabetes: Yes Hx Renal Disease: No Hx Arthritis: No Hx Seizures: No Hx Psychiatric Treatment: Yes (Schizophrenia, Paranoid) Hx Asthma: No Hx COPD: No Hx Dementia: No Additional medical history: Umbillical hernia, colon polyps. colaspe lung/ CIRRHOIS, pancreatitis, ETOH abuse, esophagitis, hiatal hernia - Surgical History Hx Cholecystectomy: No Hx Appendectomy: No Additional Surgical History: ankle right surgery, Hernia - Social History Smoking Status: Unknown if ever smoked - Medications Home Medications: Home Medications Medication Instructions Recorded Confirmed Last Taken Type Quetiapine Fumarate [SEROquel] 300 mg PO QHS 10/11/20 11/25/20 Unknown History FLUoxetine [PROzac] 20 mg PO QAM #30 capsule 10/16/20 11/25/20 Unknown Rx Temazepam [Restoril] 30 mg PO QAM 10/28/20 10/28/20 Unknown History Multivitamin with Folic Acid [[facility] 400 mcg PO QDAY #30 tablet 11/18/20 11/25/20 Unknown Rx One Daily Essential Tablet] Pantoprazole [Protonix TAB] 40 mg PO QDAY #30 11/18/20 11/25/20 Unknown Rx Potassium Chloride [K-Dur] 20 meq PO BID #30 tab 11/18/20 11/25/20 Unknown Rx chlordiazePOXIDE [Librium] 25 mg PO Q6H PRN #25 capsule 11/18/20 11/25/20 Unknown Rx Amlodipine Besylate [Norvasc] 5 mg PO 11/25/20 Unknown History ED Physical Exam - General Limitations: Altered Mental Status General appearance: in no apparent distress, lethargic - Head Head exam: Present: atraumatic, normocephalic - Eye Eye exam: Present: normal appearance - ENT ENT exam: Present: mucous membranes moist - Neck Neck exam: Present: normal inspection - Respiratory Respiratory exam: Present: normal lung sounds bilaterally. Absent: respiratory distress - Cardiovascular Cardiovascular Exam: Present: regular rate, normal rhythm. Absent: systolic murmur, diastolic murmur, rubs, gallop - GI/Abdominal GI/Abdominal exam: Present: soft, normal bowel sounds - Rectal Rectal exam: Present: deferred - Extremities Exam Extremities exam: Present: normal inspection - Back Exam Back exam: Present: normal inspection - Neurological Exam Neurological exam: Present: altered - Psychiatric Psychiatric exam: Present: normal affect, normal mood - Skin Skin exam: Present: warm, dry, intact, normal color. Absent: rash ED Course Vital Signs 11/22/20 11/22/20 11/22/20 19:34 19:50 20:00 Temperature Pulse Rate 85 88 88 Respiratory 22 11 L Rate Blood Pressure Blood Pressure [Right] O2 Sat by Pulse Oximetry 11/22/20 11/22/20 11/22/20 20:16 20:30 20:31 Temperature 97 F L Pulse Rate 84 82 82 Respiratory 14 11 L 15 Rate Blood Pressure 110/55 110/55 Blood Pressure 110/55 [Right] O2 Sat by Pulse 95 95 Oximetry 11/22/20 11/22/20 11/22/20 20:45 21:00 21:56 Temperature Pulse Rate 80 80 76 Respiratory 12 11 L Rate Blood Pressure 112/62 112/62 106/60 Blood Pressure [Right] O2 Sat by Pulse 94 97 Oximetry 11/22/20 11/22/20 11/22/20 22:00 22:16 22:30 Temperature Pulse Rate 77 76 75 Respiratory 11 L 11 L 11 L Rate Blood Pressure 106/60 106/60 106/60 Blood Pressure [Right] O2 Sat by Pulse 93 92 92 Oximetry 11/22/20 11/22/20 11/22/20 22:46 23:00 23:15 Temperature Pulse Rate 75 74 74 Respiratory 12 10 L 9 L Rate Blood Pressure 106/60 106/60 106/60 Blood Pressure [Right] O2 Sat by Pulse 95 97 94 Oximetry 11/22/20 11/22/20 11/23/20 23:31 23:45 00:01 Temperature Pulse Rate 73 74 73 Respiratory 10 L 10 L 10 L Rate Blood Pressure 105/72 101/65 106/65 Blood Pressure [Right] O2 Sat by Pulse 100 100 99 Oximetry 11/23/20 11/23/20 11/23/20 00:15 00:31 00:45 Temperature Pulse Rate 73 72 74 Respiratory 10 L 10 L 11 L Rate Blood Pressure 98/66 101/66 99/64 Blood Pressure [Right] O2 Sat by Pulse 96 96 94 Oximetry 11/23/20 11/23/20 11/23/20 01:01 01:15 01:31 Temperature Pulse Rate 74 74 74 Respiratory 11 L 10 L 11 L Rate Blood Pressure 104/58 97/62 98/65 Blood Pressure [Right] O2 Sat by Pulse 94 94 95 Oximetry 11/23/20 11/23/20 11/23/20 01:45 02:01 02:15 Temperature Pulse Rate 71 73 72 Respiratory 11 L 11 L 11 L Rate Blood Pressure 94/53 88/52 92/58 Blood Pressure [Right] O2 Sat by Pulse 94 95 94 Oximetry 11/23/20 11/23/20 11/23/20 02:31 02:45 03:01 Temperature Pulse Rate 76 74 73 Respiratory 11 L 13 11 L Rate Blood Pressure 109/58 110/66 101/65 Blood Pressure [Right] O2 Sat by Pulse 96 96 95 Oximetry 11/23/20 11/23/20 11/23/20 03:15 03:31 03:45 Temperature Pulse Rate 76 72 74 Respiratory 11 L 10 L 9 L Rate Blood Pressure 102/63 107/66 102/67 Blood Pressure [Right] O2 Sat by Pulse 94 96 96 Oximetry 11/23/20 11/23/20 11/23/20 04:01 04:15 04:31 Temperature Pulse Rate 75 75 74 Respiratory 11 L 11 L 9 L Rate Blood Pressure 103/67 103/66 104/67 Blood Pressure [Right] O2 Sat by Pulse 96 96 95 Oximetry 11/23/20 11/23/20 11/23/20 04:45 05:00 05:15 Temperature Pulse Rate 79 82 82 Respiratory 15 16 14 Rate Blood Pressure 108/70 119/53 119/89 Blood Pressure [Right] O2 Sat by Pulse 94 97 95 Oximetry 11/23/20 11/23/20 11/23/20 05:30 05:45 06:01 Temperature Pulse Rate 81 81 82 Respiratory 11 L 12 12 Rate Blood Pressure 80/33 76/39 89/42 Blood Pressure [Right] O2 Sat by Pulse 91 91 91 Oximetry 11/23/20 11/23/20 11/23/20 06:15 06:31 06:45 Temperature Pulse Rate 80 78 80 Respiratory 13 12 13 Rate Blood Pressure 99/47 102/57 110/59 Blood Pressure [Right] O2 Sat by Pulse 92 92 92 Oximetry 11/23/20 07:01 Temperature Pulse Rate 82 Respiratory 12 Rate Blood Pressure 110/60 Blood Pressure [Right] O2 Sat by Pulse 94 Oximetry - Reevaluation(s) Reevaluation #1: 11/23/20 00:33 Patient is been monitored here in the emergency department. Does show evidence of alcohol intoxication and review of his laboratory studies. After several hours of monitoring the patient will at least open his eyes to sternal rub and localize the pain but then goes back to sleep. Patient will need to be monitored further to reach sobriety. - Lab Data Result diagrams: 11/22/20 20:50 11/22/20 20:50 Lab Results 11/22/20 11/22/20 11/22/20 Range/Units 20:50 20:50 20:50 WBC 7.2 (4.5-11.0) K/mm3 RBC 3.71 (3.65-5.03) M/mm3 Hgb 8.5 L (11.8-15.2) gm/dl Hct 26.9 L (35.5-45.6) % MCV 73 L (84-94) fl MCH 23 L (28-32) pg MCHC 32 (32-34) % RDW 20.0 H (13.2-15.2) % Plt Count 253 (140-440) K/mm3 Lymph % (Auto) 25.2 (13.4-35.0) % [place] % (Auto) 11.0 H (0.0-7.3) % Eos % (Auto) 1.3 (0.0-4.3) % Baso % (Auto) 0.8 (0.0-1.8) % Lymph # (Auto) 1.8 (1.2-5.4) K/mm3 [place] # (Auto) 0.8 (0.0-0.8) K/mm3 Eos # (Auto) 0.1 (0.0-0.4) K/mm3 Baso # (Auto) 0.1 (0.0-0.1) K/mm3 Seg Neutrophils % 61.7 (40.0-70.0) % Seg Neutrophils # 4.4 (1.8-7.7) K/mm3 Sodium 138 (137-145) mmol/L Potassium 3.6 (3.6-5.0) mmol/L Chloride 101.6 (98-107) mmol/L Carbon Dioxide 24 (22-30) mmol/L Anion Gap 16 mmol/L BUN 8 L (9-20) mg/dL Creatinine 0.8 (0.8-1.3) mg/dL Estimated GFR > 60 ml/min BUN/Creatinine Ratio 10 % Glucose 80 (75-100) mg/dL Calcium 8.7 (8.4-10.2) mg/dL Total Bilirubin 0.20 (0.1-1.2) mg/dL AST 16 (5-40) units/L ALT 10 (7-56) units/L Alkaline Phosphatase 104 (35-129) units/L Ammonia 33.0 (25-60) umol/L Total Creatine Kinase 124 (55-170) units/L Troponin T < 0.010 (0.00-0.029) ng/mL Total Protein 6.6 (6.3-8.2) g/dL Albumin 3.3 L (3.9-5) g/dL Albumin/Globulin Ratio 1.0 % Salicylates (2.8-20.0) mg/dL Acetaminophen (10.0-30.0) ug/mL Plasma/Serum Alcohol (0-0.07) % 11/22/20 11/22/20 11/22/20 Range/Units 20:50 20:50 20:50 WBC (4.5-11.0) K/mm3 RBC (3.65-5.03) M/mm3 Hgb (11.8-15.2) gm/dl Hct (35.5-45.6) % MCV (84-94) fl MCH (28-32) pg MCHC (32-34) % RDW (13.2-15.2) % Plt Count (140-440) K/mm3 Lymph % (Auto) (13.4-35.0) % [place] % (Auto) (0.0-7.3) % Eos % (Auto) (0.0-4.3) % Baso % (Auto) (0.0-1.8) % Lymph # (Auto) (1.2-5.4) K/mm3 [place] # (Auto) (0.0-0.8) K/mm3 Eos # (Auto) (0.0-0.4) K/mm3 Baso # (Auto) (0.0-0.1) K/mm3 Seg Neutrophils % (40.0-70.0) % Seg Neutrophils # (1.8-7.7) K/mm3 Sodium (137-145) mmol/L Potassium (3.6-5.0) mmol/L Chloride (98-107) mmol/L Carbon Dioxide (22-30) mmol/L Anion Gap mmol/L BUN (9-20) mg/dL Creatinine (0.8-1.3) mg/dL Estimated GFR ml/min BUN/Creatinine Ratio % Glucose (75-100) mg/dL Calcium (8.4-10.2) mg/dL Total Bilirubin (0.1-1.2) mg/dL AST (5-40) units/L ALT (7-56) units/L Alkaline Phosphatase (35-129) units/L Ammonia (25-60) umol/L Total Creatine Kinase (55-170) units/L Troponin T (0.00-0.029) ng/mL Total Protein (6.3-8.2) g/dL Albumin (3.9-5) g/dL Albumin/Globulin Ratio % Salicylates < 0.3 L (2.8-20.0) mg/dL Acetaminophen 5.0 L (10.0-30.0) ug/mL Plasma/Serum Alcohol 0.12 H (0-0.07) % - Radiology Data Patient: FOREIGN MARS MR#: [id number] : 1965 Acct:[id number] Age/Sex: 54 / M ADM Date: 11/22/20 Loc: ED Attending Dr: Ordering Physician: VERNELL DUFF MD Date of Service: 11/22/20 Procedure(s): CT head/brain wo con Accession Number(s): [id number] cc: VERNELL DUFF MD NONENHANCED CT SCAN OF THE HEAD: INDICATION / CLINICAL INFORMATION: 54 years Male; Altered mental status. TECHNIQUE: Routine CT head without contrast. All CT scans at this location are performed using CT dose reduction for ALARA by means of automated exposure control. COMPARISON: CT scan of the head from 10/10/2020 FINDINGS: BRAIN / INTRACRANIAL CONTENTS: No acute hemorrhage, mass effect, midline shift, hydrocephalus, or acute, large territorial infarct. No chronic infarct or focal atrophy. Normal brain volume and ventricular/sulcal size for age. No significant white matter abnormality. CRANIOCERVICAL JUNCTION: No significant abnormality. ORBITS: No significant abnormality of visualized orbits. SINUSES / MASTOIDS: No significant abnormality of the visualized paranasal sinuses or mastoid air cells. ADDITIONAL FINDINGS: None. IMPRESSION: No focal parenchymal lesion Signer Name: Salinas Jones MD Signed: 11/22/2020 9:27 PM Workstation Name: [id number] Transcribed By: BS Dictated By: Salinas Zuniga MD Electronically Authenticated By: Salinas Zuniga MD Signed Date/Time: 11/22/202126 CXR WNL Critical care attestation.: If time is entered above; I have spent that time in minutes in the direct care of this critically ill patient, excluding procedure time. ED Disposition Clinical Impression: Alcohol intoxication Disposition: DC-01 TO HOME OR SELFCARE Is pt being admited?: No Does the pt Need Aspirin: No Condition: Stable Time of Disposition: 12:48
[2020-11-23 07:10] VITALS: BP 110/60
--- NOTE | 2020-11-27 17:25 | Electrocardiograph Report ---
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
== END 2020-11-23 10:40 | disposition home or self-care (01) ==
LOC: ED 19:19
DX: F10.129 Alcohol abuse with intoxication, unspecified (principal); I10 Essential (primary) hypertension; E11.9 Type 2 diabetes mellitus without complications; F20.0 Paranoid schizophrenia; Z98.890 Other specified postprocedural states; Z79.899 Other long term (current) drug therapy; Z88.0 Allergy status to penicillin
CPT/HCPCS: 36415; 70450; 71045; 80053; 80320; 82140; 82550; 84484; 85025; 93005; G0480; J7030

== ENCOUNTER 2020-11-25 07:18 | Inpatient (IN) | payer MEDICAID ==
--- NOTE | 2020-11-25 08:11 | Emergency Department Report ---
Blank Doc - Documentation Documentation: 54-year-old male that presents brought by EMS for on the mental status with Et OH. Hypothermia in triage Neuro exam shows no one-sided weakness, PERRLA, EMOI, no facial drooping. Patient does have slurred speech. Patient has been consulted with Dr. Winchester about patient history and physical exam and agrees to the ED plan of care. 1- This initial assessment/diagnostic orders/clinical plan/ treatment(s) is/are subject to change based on pt's health status, clinical progression and re- assessment by fellow clinical providers in the ED. Further treatment and workup at subsequent clinical provers discretion. Patient/guardians urged not to elope from ED as their condition may be serious if not clinically assessed and managed. 2-AMS workup 3-Sepsis workup
--- NOTE | 2020-11-25 09:01 | Cat Scan Report ---
CT HEAD WITHOUT CONTRAST INDICATION / CLINICAL INFORMATION: Altered mental status. TECHNIQUE: All CT scans at this location are performed using CT dose reduction for ALARA by means of automated e xposure control. COMPARISON: 11/22/2020 FINDINGS: HEMORRHAGE: None. EXTRA-AXIAL SPACES: Normal in size and morphology for the patient's age. VENTRICULAR SYSTEM: Normal in size and morphology for the patient's age. CEREBRAL PARENCHYMA: No significant abnormality. No acute territorial infarct. MIDLINE SHIFT OR HERNIATION: None. CEREBELLUM / BRAINSTEM: No significant abnormality. ORBITS: Normal as visualized. SOFT TISSUES of HEAD: No significant abnormality. CALVARIUM: No significant abnormality. PARANASAL SINUSES / MASTOID AIR CELLS: Normal as visualized. ADDITIONAL FINDINGS: None. IMPRESSION: 1. No acute intracranial abnormality. No significant interval change since 11/22/2020. Signer Name: Stanislav Kwon MD Signed: 11/25/2020 8:57 AM Workstation Name: [id number]
[2020-11-25 09:12] LABS: Basophils % (Auto) 0.1 % (0.0-1.8); Eosinophils % (Auto) 0.7 % (0.0-4.3); Hematocrit 29.7 % (35.5-45.6); Hemoglobin 9.6 gm/dl (11.8-15.2); Lymphocytes # (Auto) 0.6 K/mm3 (1.2-5.4); Lymphocytes % (Auto) 8.9 % (13.4-35.0); Mean Corpuscular HGB Conc 32 % (32-34); Mean Corpuscular Volume 72 fl (84-94); Monocytes # (Auto) 0.7 K/mm3 (0.0-0.8); Monocytes % (Auto) 9.4 % (0.0-7.3); Platelet Count 281 K/mm3 (140-440); Red Blood Count 4.14 M/mm3 (3.65-5.03); Red Cell Distribution Width 19.9 % (13.2-15.2)
[2020-11-25 09:22] LABS: INR 1.01 (0.87-1.13)
[2020-11-25 09:23] LABS: Partial Thromboplastin Time 26.9 Sec. (24.2-36.6)
[2020-11-25 09:32] LABS: Alanine Aminotransferase 19 units/L (7-56); Albumin 3.6 g/dL (3.9-5); Blood Urea Nitrogen 6 mg/dL (9-20); Hemolysis Index 5
[2020-11-25 09:33] LABS: BUN/Creatinine Ratio 12
--- NOTE | 2020-11-25 09:35 | Emergency Department Report ---
ED General Adult HPI - General Chief complaint: Altered Mental Status Stated complaint: ETOH Time Seen by Provider: 11/25/20 08:08 Source: patient Mode of arrival: Wheelchair Limitations: Altered Mental Status, Physical Limitation - History of Present Illness Initial comments: This is a 54-year-old male history of psychiatric disorder (paranoid schizophr enia) alcoholism and substance abuse. His last several presentations to this emergency department related to mostly psychiatric issues he did not result in hospitalization. In 2019 he had a right lower lobe pneumonia associated with hypoxia he was admitted at that time. He did withdrawal from alcohol. Apparently he has a history of pancreatitis and cirrhosis as well. I did not see the basis for the diagnosis of diabetes which was populated into the medical record based on prior labs or ambulatory medications. Today the patient is transported via EMS. No EMS documents are available to me. The nurse practitioner informed me that the patient had garbled speech but not apparent dysphagia on arrival. He was hypothermic. He was altered/lethargic. He was unable to provide any historical information. Apparently, the patient was seen on 11/23/2020 also with altered mental status and alcohol intoxication. Hospitalization 2019: Condition: Fair Hospital course: Patient is 53yo with schizophrenia. He presented to ED because of suicidal ideations. He says he has voices telling him to kill himself. He was seen and evaluated in ED, and evaluated by Psych. However he was found to be hypoxic and Chest X ray revealed pneumonia right lower lobe. When I initially saw him, he complained of shortness of breath, cough. He also has tachycardia. He was started on iv Antibiotic, admitted. Pneumonia right lung Admitted to Tele. Managed with Levaquin 750mg iv daily Blood cultures drawn, no growth Sepsis due to pneumonia. Treated with Levaquin Alcohol withdrawal syndrome CIWA protocol used to manage withdrawal Ativan iv prn Suicidal ideas psych consulted, followed during admmission. was initially on 1012, rescinded on 06/10 Polysubstance abuse I counseled him on quitting marijuana, alcohol Total time spent on discharge, 33 mins Disposition: [id number] TO HOME OR SELFCARE - Discharge Diagnoses (1) Sepsis Status: Acute (2) Suicidal ideations Status: Acute (3) Alcohol abuse Status: Acute (4) Alcohol withdrawal Status: Acute (5) Pneumonia Status: Acute Qualifiers: (6) Suicidal ideations Status: Acute -: unknown - Related Data Home Medications Medication Instructions Recorded Confirmed Last Taken Quetiapine Fumarate [SEROquel] 500 mg PO QHS 10/11/20 10/28/20 Unknown Temazepam [Restoril] 30 mg PO QAM 10/28/20 10/28/20 Unknown Previous Rx's Medication Instructions Recorded Last Taken Type FLUoxetine [PROzac] 20 mg PO QAM #30 capsule 10/16/20 Unknown Rx Lansoprazole [Prevacid] 15 mg PO BID #60 cap 11/11/20 Unknown Rx Ferrous Gluconate [Ferrous 324 mg PO BID #60 tablet 11/18/20 Unknown Rx Gluconate 324 MG] Multivitamin with Folic Acid [Cvs 400 mcg PO QDAY #30 tablet 11/18/20 Unknown Rx One Daily Essential Tablet] Pantoprazole [Protonix TAB] 40 mg PO QDAY #30 11/18/20 Unknown Rx Potassium Chloride [K-Dur] 20 meq PO BID #30 tab 11/18/20 Unknown Rx chlordiazePOXIDE [Librium] 25 mg PO Q6H PRN #25 capsule 11/18/20 Unknown Rx Allergies Allergy/AdvReac Type Severity Reaction Status Date / Time Penicillins Allergy Hives Verified 10/31/20 13:49 ED Review of Systems ROS: Stated complaint: ETOH Other details as noted in HPI Comment: Unobtainable due to pts medical conditions ED Past Medical Hx - Past Medical History Previous Medical History?: Yes Hx Hypertension: Yes Hx Congestive Heart Failure: No Hx Diabetes: Yes (This may be an accurate) Hx Renal Disease: No Hx Arthritis: No Hx Seizures: No Hx Psychiatric Treatment: Yes (Schizophrenia, Paranoid) Hx Asthma: No Hx COPD: No Hx Dementia: No Additional medical history: Umbillical hernia, colon polyps. colaspe lung/ CIRRHOIS, pancreatitis, ETOH abuse, esophagitis, hiatal hernia - Surgical History Past Surgical History?: Yes Hx Cholecystectomy: No Hx Appendectomy: No Additional Surgical History: ankle right surgery, Hernia - Social History Smoking Status: Unknown if ever smoked Substance Use Type: Alcohol - Medications Home Medications: Home Medications Medication Instructions Recorded Confirmed Last Taken Type Quetiapine Fumarate [SEROquel] 500 mg PO QHS 10/11/20 10/28/20 Unknown History FLUoxetine [PROzac] 20 mg PO QAM #30 capsule 10/16/20 10/28/20 Unknown Rx Temazepam [Restoril] 30 mg PO QAM 10/28/20 10/28/20 Unknown History Lansoprazole [Prevacid] 15 mg PO BID #60 cap 11/11/20 Unknown Rx Ferrous Gluconate [Ferrous 324 mg PO BID #60 tablet 11/18/20 Unknown Rx Gluconate 324 MG] Multivitamin with Folic Acid [Cvs 400 mcg PO QDAY #30 tablet 11/18/20 Unknown Rx One Daily Essential Tablet] Pantoprazole [Protonix TAB] 40 mg PO QDAY #30 11/18/20 Unknown Rx Potassium Chloride [K-Dur] 20 meq PO BID #30 tab 11/18/20 Unknown Rx chlordiazePOXIDE [Librium] 25 mg PO Q6H PRN #25 capsule 11/18/20 Unknown Rx ED Physical Exam - General Limitations: Altered Mental Status, Physical Limitation General appearance: lethargic - Head Head exam: Present: atraumatic - Eye Eye exam: Present: PERRL. Absent: scleral icterus, nystagmus Pupils: Present: other (Regular and reactive) - ENT ENT exam: Present: other (No obvious abnormality) - Neck Neck exam: Present: normal inspection - Respiratory Respiratory exam: Present: normal lung sounds bilaterally. Absent: respiratory distress - Cardiovascular Cardiovascular Exam: Present: regular rate, normal rhythm - GI/Abdominal GI/Abdominal exam: Present: soft, normal bowel sounds. Absent: distended, tend erness, guarding, rebound, rigid - Extremities Exam Extremities exam: Present: normal inspection (No obvious deformity. ) - Back Exam Back exam: Present: other (Unable to inspect) - Neurological Exam Neurological exam: Present: altered, other (No gross focal deficit noted) - Psychiatric Psychiatric exam: Present: flat affect - Skin Skin exam: Present: dry, intact, normal color. Absent: rash ED Course Vital Signs 11/25/20 11/25/20 11/25/20 07:55 08:58 09:01 Temperature 92 F L Pulse Rate 81 78 78 Respiratory 14 15 11 L Rate Blood Pressure 118/73 123/82 Blood Pressure [Left] O2 Sat by Pulse 99 95 Oximetry 11/25/20 11/25/20 11/25/20 09:15 09:31 09:32 Temperature Pulse Rate 81 78 Respiratory 15 12 Rate Blood Pressure 107/81 123/82 Blood Pressure [Left] O2 Sat by Pulse 97 97 100 Oximetry 11/25/20 11/25/20 11/25/20 09:35 09:45 10:01 Temperature 93.7 F L Pulse Rate 78 78 79 Respiratory 12 11 L 11 L Rate Blood Pressure 123/82 118/66 Blood Pressure 107/81 [Left] O2 Sat by Pulse 97 97 97 Oximetry 11/25/20 11/25/20 11/25/20 10:15 10:31 10:43 Temperature Pulse Rate 81 83 80 Respiratory 12 13 14 Rate Blood Pressure 118/66 118/66 Blood Pressure 118/66 [Left] O2 Sat by Pulse 98 96 97 Oximetry 11/25/20 11/25/20 11/25/20 10:45 11:00 11:15 Temperature Pulse Rate 83 83 82 Respiratory 13 11 L 10 L Rate Blood Pressure 118/66 137/97 118/66 Blood Pressure [Left] O2 Sat by Pulse 96 95 97 Oximetry 11/25/20 11:30 Temperature 94.1 F L Pulse Rate 78 Respiratory 14 Rate Blood Pressure Blood Pressure 137/97 [Left] O2 Sat by Pulse 97 Oximetry - Reevaluation(s) Reevaluation #1: Blood was drawn via arterial stick right radial for phlebotomy. A right EJ Y set line was placed without difficulty, single puncture. 11/25/20 09:40 Reevaluation #2: Passive rewarming. Nurse informed. Warmed IV fluids preferable. Empiric antibiotic coverage. Altered mental status work-up. 11/25/20 09:41 Reevaluation #3: Patient remaining clinically stable. His level of consciousness is improving with rewarming. Nurse states that he is taking some arch sheets. Discussed with hospitalist. Gave antibiotic coverage. Admit to the hospitalist service. 11/25/20 12:11 - EJ/Peripheral Line Neck R Time Out Performed: No Indications: nurses unable to establis Skin Cleansed in Sterile Fashion: Yes Size: 20 Dressing Placed: Tegaderm, tape Patient Tolerated Procedure: well ED Medical Decision Making - Lab Data Result diagrams: 11/25/20 09:08 11/25/20 09:08 Laboratory Results - last 24 hr 11/25/20 11/25/20 11/25/20 07:56 09:08 09:08 WBC 7.3 RBC 4.14 Hgb 9.6 L Hct 29.7 L MCV 72 L MCH 23 L MCHC 32 RDW 19.9 H Plt Count 281 Lymph % (Auto) 8.9 L Miller % (Auto) 9.4 H Eos % (Auto) 0.7 Baso % (Auto) 0.1 Lymph # (Auto) 0.6 L Miller # (Auto) 0.7 Eos # (Auto) 0.0 Baso # (Auto) 0.0 Seg Neutrophils % 80.9 H Seg Neutrophils # 5.9 PT INR APTT Sodium Potassium Chloride Carbon Dioxide Anion Gap BUN Creatinine Estimated GFR BUN/Creatinine Ratio Glucose POC Glucose 121 H Lactic Acid Calcium Total Bilirubin AST ALT Alkaline Phosphatase Ammonia CK-MB (CK-2) Troponin T < 0.010 NT-Pro-B Natriuret Pep Total Protein Albumin Albumin/Globulin Ratio Lipase Urine Color Urine Turbidity Urine pH Ur Specific [place] Urine Protein Urine Glucose (UA) Urine Ketones Urine Blood Urine Nitrite Ur Reducing Substances Urine Bilirubin Urine Ictotest Urine Urobilinogen Ur Leukocyte Esterase Urine WBC (Auto) Urine RBC (Auto) Urine Mucus Salicylates Urine Opiates Screen Urine Methadone Screen Acetaminophen Ur Barbiturates Screen Ur Phencyclidine Scrn Ur Amphetamines Screen U Benzodiazepines Scrn Urine Cocaine Screen U Marijuana (THC) Screen Drugs of Abuse Note Plasma/Serum Alcohol 11/25/20 11/25/20 11/25/20 09:08 09:08 09:08 WBC RBC Hgb Hct MCV MCH MCHC RDW Plt Count Lymph % (Auto) Miller % (Auto) Eos % (Auto) Baso % (Auto) Lymph # (Auto) Miller # (Auto) Eos # (Auto) Baso # (Auto) Seg Neutrophils % Seg Neutrophils # PT INR APTT Sodium 140 Potassium 3.7 Chloride 103.7 Carbon Dioxide 26 Anion Gap 14 BUN 6 L Creatinine 0.5 L Estimated GFR > 60 BUN/Creatinine Ratio 12 Glucose 122 H POC Glucose Lactic Acid 0.80 Calcium 9.0 Total Bilirubin 0.30 AST 39 ALT 19 Alkaline Phosphatase 106 Ammonia CK-MB (CK-2) Troponin T < 0.010 NT-Pro-B Natriuret Pep Total Protein 7.4 Albumin 3.6 L Albumin/Globulin Ratio 0.9 Lipase Urine Color Urine Turbidity Urine pH Ur Specific [place] Urine Protein Urine Glucose (UA) Urine Ketones Urine Blood Urine Nitrite Ur Reducing Substances Urine Bilirubin Urine Ictotest Urine Urobilinogen Ur Leukocyte Esterase Urine WBC (Auto) Urine RBC (Auto) Urine Mucus Salicylates Urine Opiates Screen Urine Methadone Screen Acetaminophen Ur Barbiturates Screen Ur Phencyclidine Scrn Ur Amphetamines Screen U Benzodiazepines Scrn Urine Cocaine Screen U Marijuana (THC) Screen Drugs of Abuse Note Plasma/Serum Alcohol < 0.01 11/25/20 11/25/20 11/25/20 09:08 09:08 09:08 WBC RBC Hgb Hct MCV MCH MCHC RDW Plt Count Lymph % (Auto) Miller % (Auto) Eos % (Auto) Baso % (Auto) Lymph # (Auto) Miller # (Auto) Eos # (Auto) Baso # (Auto) Seg Neutrophils % Seg Neutrophils # PT 13.2 INR 1.01 APTT 26.9 Sodium Potassium Chloride Carbon Dioxide Anion Gap BUN Creatinine Estimated GFR BUN/Creatinine Ratio Glucose POC Glucose Lactic Acid Calcium Total Bilirubin AST ALT Alkaline Phosphatase Ammonia CK-MB (CK-2) Troponin T NT-Pro-B Natriuret Pep Total Protein Albumin Albumin/Globulin Ratio Lipase Urine Color Urine Turbidity Urine pH Ur Specific [place] Urine Protein Urine Glucose (UA) Urine Ketones Urine Blood Urine Nitrite Ur Reducing Substances Urine Bilirubin Urine Ictotest Urine Urobilinogen Ur Leukocyte Esterase Urine WBC (Auto) Urine RBC (Auto) Urine Mucus Salicylates < 0.3 L Urine Opiates Screen Urine Methadone Screen Acetaminophen 5.0 L Ur Barbiturates Screen Ur Phencyclidine Scrn Ur Amphetamines Screen U Benzodiazepines Scrn Urine Cocaine Screen U Marijuana (THC) Screen Drugs of Abuse Note Plasma/Serum Alcohol 11/25/20 11/25/20 11/25/20 09:22 09:22 10:18 WBC RBC Hgb Hct MCV MCH MCHC RDW Plt Count Lymph % (Auto) Miller % (Auto) Eos % (Auto) Baso % (Auto) Lymph # (Auto) Miller # (Auto) Eos # (Auto) Baso # (Auto) Seg Neutrophils % Seg Neutrophils # PT INR APTT Sodium Potassium Chloride Carbon Dioxide Anion Gap BUN Creatinine Estimated GFR BUN/Creatinine Ratio Glucose POC Glucose Lactic Acid Calcium Total Bilirubin AST ALT Alkaline Phosphatase Ammonia 20.0 L CK-MB (CK-2) Troponin T NT-Pro-B Natriuret Pep Total Protein Albumin Albumin/Globulin Ratio Lipase Urine Color Straw Urine Turbidity Clear Urine pH 6.0 Ur Specific [place] 1.006 Urine Protein <15 mg/dl Urine Glucose (UA) Neg Urine Ketones Neg Urine Blood Neg Urine Nitrite Neg Ur Reducing Substances Not Reportable Urine Bilirubin Neg Urine Ictotest Not Reportable Urine Urobilinogen < 2.0 Ur Leukocyte Esterase Neg Urine WBC (Auto) < 1.0 Urine RBC (Auto) < 1.0 Urine Mucus Few Salicylates Urine Opiates Screen Negative Urine Methadone Screen Negative Acetaminophen Ur Barbiturates Screen Negative Ur Phencyclidine Scrn Negative Ur Amphetamines Screen Negative U Benzodiazepines Scrn Positive Urine Cocaine Screen Negative U Marijuana (THC) Screen Negative Drugs of Abuse Note Disclamer Plasma/Serum Alcohol 11/25/20 11/25/20 10:18 10:18 WBC RBC Hgb Hct MCV MCH MCHC RDW Plt Count Lymph % (Auto) Miller % (Auto) Eos % (Auto) Baso % (Auto) Lymph # (Auto) Miller # (Auto) Eos # (Auto) Baso # (Auto) Seg Neutrophils % Seg Neutrophils # PT INR APTT Sodium Potassium Chloride Carbon Dioxide Anion Gap BUN Creatinine Estimated GFR BUN/Creatinine Ratio Glucose POC Glucose Lactic Acid Calcium Total Bilirubin AST ALT Alkaline Phosphatase Ammonia CK-MB (CK-2) 29.8 H Troponin T NT-Pro-B Natriuret Pep 44.81 Total Protein Albumin Albumin/Globulin Ratio Lipase 9 L Urine Color Urine Turbidity Urine pH Ur Specific [place] Urine Protein Urine Glucose (UA) Urine Ketones Urine Blood Urine Nitrite Ur Reducing Substances Urine Bilirubin Urine Ictotest Urine Urobilinogen Ur Leukocyte Esterase Urine WBC (Auto) Urine RBC (Auto) Urine Mucus Salicylates Urine Opiates Screen Urine Methadone Screen Acetaminophen Ur Barbiturates Screen Ur Phencyclidine Scrn Ur Amphetamines Screen U Benzodiazepines Scrn Urine Cocaine Screen U Marijuana (THC) Screen Drugs of Abuse Note Plasma/Serum Alcohol - EKG Data -: EKG Interpreted by Me EKG shows normal: sinus rhythm, axis, intervals, QRS complexes, ST-T waves Rate: normal - EKG Data Interpretation: nonspecific ST-T wave andrew, other (Motion artifact possibly due to shivering) - Radiology Data Radiology results: report reviewed, image reviewed IMPRESSION: 1. Interval development of right lung base opacity since the prior exam likely represents developing infectious process given the patient's clinical history. 2. Persistent left pleural-parenchymal opacity likely represents small pleural effusion and atelectasis. Signer Name: Stanislav Kwon MD Critical care attestation.: If time is entered above; I have spent that time in minutes in the direct care of this critically ill patient, excluding procedure time. ED Disposition Clinical Impression: Hypothermia Qualifiers: Encounter type: initial encounter Qualified Code(s): T68.XXXA - Hypothermia, initial encounter Bilateral pneumonia Qualifiers: Pneumonia type: aspiration pneumonia Aspiration pneumonia type: unspecified Lung location: lower lobe of lung Qualified Code(s): J69.0 - Pneumonitis due to inhalation of food and vomit Altered mental status Qualifiers: Altered mental status type: somnolence Qualified Code(s): R40.0 - Somnolence Disposition: -09 OP ADMIT IP TO THIS HOSP Is pt being admited?: Yes Does the pt Need Aspirin: Yes Condition: Stable Instructions: Bacterial Pneumonia (ED) Referrals: PRIMARY CARE, [Primary Care Provider] - 3-5 Days Time of Disposition: 12:12
[2020-11-25] MEDS ORDERED: SODIUM CHLORIDE 0.9% 1000 ML 1,000 ML IV ONE (09:36)
[2020-11-25] MEDS ORDERED: CEFEPIME/NS 1 GM/100 ML 1 GM/100 ML BAG IV ONE (09:37)
[2020-11-25 09:42] LABS: Mucus,Urine FEW /HPF; RBC,Urine < 1.0 /HPF (0.0-6.0); WBC,Urine < 1.0 /HPF (0.0-6.0)
[2020-11-25 09:44] LABS: Bilirubin,Urine NEG (Negative); Blood,Urine NEG (Negative); Color,Urine Straw (Yellow); Protein,Urine <15 mg/dL mg/dL (Negative); Urobilinogen,Urine < 2.0 mg/dL (<2.0)
--- NOTE | 2020-11-25 09:47 | XRay Report ---
CHEST 1 VIEW 11/25/2020 8:35 AM INDICATION / CLINICAL INFORMATION: sepsis. COMPARISON: 11/22/2020 FINDINGS: SUPPORT DEVICES: None. HEART / MEDIASTINUM: Stable. LUNGS / PLEURA: Interval development of a new right lung base opacity. Pleural parenchymal opacity in the left lung base is similar to prior exam. No pneumothorax. ADDITIONAL FINDINGS: No significant additional findings. IMPRESSION: 1. Interval development of right lung base opacity since the prior exam likely represents developing infectious process given the patient's clinical history. 2. Persistent left pleural-parenchymal opacity likely represents small pleural effusion and atelectas is. Signer Name: Stanislav Kwon MD Signed: 11/25/2020 9:43 AM Workstation Name: [id number]
[2020-11-25 09:50] LABS: Amphetamine Screen,Urine Negative; Cannabinoid Screen,Urine Negative; Cocaine Screen,Urine Negative; Methadone Screen,Urine Negative; Opiate Screen,Urine Negative
[2020-11-25 10:07] LABS: Benzodiazepines Screen,Urine Positive
[2020-11-25 11:02] LABS: Creatine Kinase MB 29.8 ng/mL (0.0-4.0)
[2020-11-25] MEDS ORDERED: ASPIRIN 81 MG TAB CHEW PO ONE (12:13)
--- NOTE | 2020-11-25 12:42 | History and Physical Report ---
History of Present Illness Chief complaint: He is confused History of present illness: 54 YO Male with Paranoid Schizophrenia, PSA, ETOH Dependence complicated by Pancreatitis and Esophagitis, HTN, Cirrhosis, Anemia, GERD presents to ED for evaluation. Patient is confused with diminished cognition at time of evaluation is unable to provide detailed history. Patient history taken from EMS staff, as well as the ED staff. As per staff, the patient was transported to [facility] for further care and evaluation due to confusion and weakness. Patient seen and evaluated in the emergency department. All lab and imaging studies reviewed. Patient found to have right lower lobe pneumonia, rhabdomyolysis, as well as metabolic encephalopathy. Patient admitted to medical floor and initiated on pneumonia protocol. No reports of fever, chills, chest pain, palpitation, productive cough, skin rash, recent ill contacts, or known exposure to COVID-19. Patient is confused with diminished cognition but has a positive gag reflex and is able to protect his airway without difficulty. Prior admission on 06/08/2019 reviewed. All medication listed at time of admission has been reconciled. Past History Past Medical History: anemia, GERD, hypertension, other (See HPI) Past Surgical History: hernia repair, Other (right ankle surgery) Social history: alcohol abuse Family history: hypertension Medications and Allergies Allergies Allergy/AdvReac Type Severity Reaction Status Date / Time Penicillins Allergy Hives Verified 10/31/20 13:49 Home Medications Medication Instructions Recorded Confirmed Last Taken Type Quetiapine Fumarate [SEROquel] 500 mg PO QHS 10/11/20 10/28/20 Unknown History FLUoxetine [PROzac] 20 mg PO QAM #30 capsule 10/16/20 10/28/20 Unknown Rx Temazepam [Restoril] 30 mg PO QAM 10/28/20 10/28/20 Unknown History Lansoprazole [Prevacid] 15 mg PO BID #60 cap 11/11/20 Unknown Rx Ferrous Gluconate [Ferrous 324 mg PO BID #60 tablet 11/18/20 Unknown Rx Gluconate 324 MG] Multivitamin with Folic Acid [Cvs 400 mcg PO QDAY #30 tablet 11/18/20 Unknown Rx One Daily Essential Tablet] Pantoprazole [Protonix TAB] 40 mg PO QDAY #30 11/18/20 Unknown Rx Potassium Chloride [K-Dur] 20 meq PO BID #30 tab 11/18/20 Unknown Rx chlordiazePOXIDE [Librium] 25 mg PO Q6H PRN #25 capsule 11/18/20 Unknown Rx Review of Systems ROS unobtainable: due to mental status Exam - Constitutional Vitals: Temp Pulse Resp BP Pulse Ox 94.1 F L 81 11 L 122/88 96 11/25/20 11:30 11/25/20 12:31 11/25/20 12:31 11/25/20 12:31 11/25/20 12:31 General appearance: Present: mild distress, obese - EENT Eyes: Present: PERRL ENT: clear oral mucosa, hearing decreased - Neck Neck: Present: supple, normal ROM - Respiratory Respiratory effort: normal Respiratory: bilateral: CTA - Cardiovascular Heart Sounds: Present: S1 & S2. Absent: rub, click - Extremities Extremities: pulses symmetrical, No edema Peripheral Pulses: within normal limits - Abdominal General gastrointestinal: Present: soft, non-tender, non-distended, normal bowel sounds Male genitourinary: Present: normal - Integumentary Integumentary: Present: clear, warm, dry - Musculoskeletal Musculoskeletal: generalized weakness - Psychiatric Psychiatric: no appropriate mood/affect, no intact judgment & insight, no memory intact - Neurologic Neurologic: CNII-XII intact, no focal deficits, moves all extremities, no gait normal HEART Score - HEART Score Troponin: Troponin T < 0.010 ng/mL (0.00-0.029) 11/25/20 09:08 Troponin T < 0.010 ng/mL (0.00-0.029) 11/25/20 09:08 Results - Labs CBC & Chem 7: 11/25/20 09:08 11/25/20 09:08 Labs: Abnormal lab results 11/25/20 11/25/20 11/25/20 Range/Units 07:56 09:08 09:08 Hgb 9.6 L (11.8-15.2) gm/dl Hct 29.7 L (35.5-45.6) % MCV 72 L (84-94) fl MCH 23 L (28-32) pg RDW 19.9 H (13.2-15.2) % Lymph % (Auto) 8.9 L (13.4-35.0) % [place] % (Auto) 9.4 H (0.0-7.3) % Lymph # (Auto) 0.6 L (1.2-5.4) K/mm3 Seg Neutrophils % 80.9 H (40.0-70.0) % BUN 6 L (9-20) mg/dL Creatinine 0.5 L (0.8-1.3) mg/dL Glucose 122 H (75-100) mg/dL POC Glucose 121 H (70-105) mg/dL Lactic Acid (0.7-2.0) mmol/L Ammonia (25-60) umol/L Total Creatine Kinase (55-170) units/L CK-MB (CK-2) (0.0-4.0) ng/mL Albumin 3.6 L (3.9-5) g/dL Lipase (13-60) units/L Salicylates (2.8-20.0) mg/dL Acetaminophen (10.0-30.0) ug/mL 11/25/20 11/25/20 11/25/20 Range/Units 09:08 09:08 10:18 Hgb (11.8-15.2) gm/dl Hct (35.5-45.6) % MCV (84-94) fl MCH (28-32) pg RDW (13.2-15.2) % Lymph % (Auto) (13.4-35.0) % [place] % (Auto) (0.0-7.3) % Lymph # (Auto) (1.2-5.4) K/mm3 Seg Neutrophils % (40.0-70.0) % BUN (9-20) mg/dL Creatinine (0.8-1.3) mg/dL Glucose (75-100) mg/dL POC Glucose (70-105) mg/dL Lactic Acid (0.7-2.0) mmol/L Ammonia 20.0 L (25-60) umol/L Total Creatine Kinase (55-170) units/L CK-MB (CK-2) (0.0-4.0) ng/mL Albumin (3.9-5) g/dL Lipase (13-60) units/L Salicylates < 0.3 L (2.8-20.0) mg/dL Acetaminophen 5.0 L (10.0-30.0) ug/mL 11/25/20 11/25/20 11/25/20 Range/Units 10:18 10:18 10:57 Hgb (11.8-15.2) gm/dl Hct (35.5-45.6) % MCV (84-94) fl MCH (28-32) pg RDW (13.2-15.2) % Lymph % (Auto) (13.4-35.0) % [place] % (Auto) (0.0-7.3) % Lymph # (Auto) (1.2-5.4) K/mm3 Seg Neutrophils % (40.0-70.0) % BUN (9-20) mg/dL Creatinine (0.8-1.3) mg/dL Glucose (75-100) mg/dL POC Glucose (70-105) mg/dL Lactic Acid 2.10 H* (0.7-2.0) mmol/L Ammonia (25-60) umol/L Total Creatine Kinase 1549 H (55-170) units/L CK-MB (CK-2) 29.8 H (0.0-4.0) ng/mL Albumin (3.9-5) g/dL Lipase 9 L (13-60) units/L Salicylates (2.8-20.0) mg/dL Acetaminophen (10.0-30.0) ug/mL Assessment and Plan - Patient Problems (1) Pneumonia Current Visit: Yes Status: Acute Plan to address problem: Pneumonia protocol: Chest x-ray, CBC, CMP, IV antibiotic therapy, supplemental oxygen, blood culture, pulse oximetry, nebulizer therapy. (2) Rhabdomyolysis Current Visit: Yes Status: Acute Qualifiers: Encounter type: initial encounter Plan to address problem: CK level, IV fluid resuscitation therapy, repeat BMP in a.m., repeat CK in a.m. Monitor urine output every shift, monitor fluid balance. (3) Obesity hypoventilation syndrome Current Visit: Yes Status: Acute Plan to address problem: Balanced diet, increase physical activity at discharge, outpatient pulmonary follow-up for sleep study. (4) Metabolic encephalopathy Current Visit: Yes Status: Acute Plan to address problem: CT head, neuro check, seizure precautions, aspiration precautions, fall precautions, supportive care. (5) Alcohol withdrawal Current Visit: No Status: Acute Qualifiers: Complication of substance-induced condition: with perceptual disturbance Qualified Code(s): F10.232 - Alcohol dependence with withdrawal with perceptual disturbance Plan to address problem: Banana bag, oral thiamine, folic acid, multivitamin, CIWA protocol. (6) DVT prophylaxis Current Visit: Yes Status: Acute Plan to address problem: SCD to bilateral lower extremities while in bed, patient is ambulatory
[2020-11-25] MEDS ORDERED: ONDANSETRON 4 MG/2 ML INJ IV PRN (12:54)
[2020-11-25] MEDS ORDERED: MULTIVITAMINS ,THERAPEUTIC TAB PO ONE (13:53)
[2020-11-25] MEDS ORDERED: THIAMINE 100 MG TAB PO ONE (13:53)
[2020-11-25] MEDS: LORazepam 2 MG/ML VIAL IV PRN ×2 (17:39→21:50)
[2020-11-25] MEDS: FERROUS GLUCONATE 324 MG TAB PO SCH (21:09)
[2020-11-25] MEDS: POTASSIUM CHLORIDE ER 20 MEQ TAB PO SCH (21:09)
[2020-11-25] MEDS: QUEtiapine 200 MG TAB PO SCH (21:10)
[2020-11-25] MEDS ORDERED: LANSOPRAZOLE 15 MG PO SCH (22:00)
[2020-11-25] MEDS ORDERED: NON-FORMULARY EACH (Quetiapine Fumarate [Seroquel] 300 MG Tablet) PO SCH (22:00)
[2020-11-26] MEDS: SODIUM CHLORIDE 0.9% 1000 ML 1,000 ML IV SCH ×2 (01:59→13:48)
[2020-11-26] MEDS: LORazepam 2 MG/ML VIAL IV PRN ×2 (05:21→15:43)
--- NOTE | 2020-11-26 08:06 | Progress Note ---
Assessment and Plan Assessment and plan: Sepsis. Present on admission. Patient meets criteria given the hypothermia, tachycardia and diagnosis of pneumonia. Right lower lobe pneumonia Rhabdomyolysis Obesity hypoventilation syndrome EtOH dependence/withdrawal Toxic metabolic encephalopathy 11/26/2020. Continue IV antibiotics. Consult ID for further evaluation. Check Covid testing and follow-up inflammatory markers. Continue IV fluid hydration and follow-up CK levels. Continue CIWA protocol. History Interval history: No new issues overnight. Hospitalist Physical - Constitutional Vitals: Temp Pulse Resp BP Pulse Ox 98.7 F 88 20 100/66 98 11/26/20 04:51 11/26/20 04:51 11/26/20 04:51 11/26/20 04:51 11/26/20 04:51 General appearance: Present: no acute distress, obese - EENT Eyes: Present: PERRL, EOM intact ENT: hearing intact, clear oral mucosa, dentition normal - Neck Neck: Present: supple, normal ROM - Respiratory Respiratory effort: normal Respiratory: bilateral: CTA - Cardiovascular Rhythm: regular Heart Sounds: Present: S1 & S2. Absent: gallop, rub - Extremities Extremities: no ischemia, No edema, Full ROM - Abdominal General gastrointestinal: soft, non-tender, non-distended, normal bowel sounds - Integumentary Integumentary: Present: clear, warm, dry - Neurologic Neurologic: CNII-XII intact, moves all extremities HEART Score - HEART Score Troponin: Troponin T < 0.010 ng/mL (0.00-0.029) 11/25/20 09:08 Troponin T < 0.010 ng/mL (0.00-0.029) 11/25/20 09:08 Results - Labs CBC & Chem 7: 11/25/20 09:08 11/25/20 09:08 Labs: Laboratory Last Values WBC 7.3 K/mm3 (4.5-11.0) 11/25/20 09:08 RBC 4.14 M/mm3 (3.65-5.03) 11/25/20 09:08 Hgb 9.6 gm/dl (11.8-15.2) L 11/25/20 09:08 Hct 29.7 % (35.5-45.6) L 11/25/20 09:08 MCV 72 fl (84-94) L 11/25/20 09:08 MCH 23 pg (28-32) L 11/25/20 09:08 MCHC 32 % (32-34) 11/25/20 09:08 RDW 19.9 % (13.2-15.2) H 11/25/20 09:08 Plt Count 281 K/mm3 (140-440) 11/25/20 09:08 Lymph % (Auto) 8.9 % (13.4-35.0) L 11/25/20 09:08 [place] % (Auto) 9.4 % (0.0-7.3) H 11/25/20 09:08 Eos % (Auto) 0.7 % (0.0-4.3) 11/25/20 09:08 Baso % (Auto) 0.1 % (0.0-1.8) 11/25/20 09:08 Lymph # (Auto) 0.6 K/mm3 (1.2-5.4) L 11/25/20 09:08 [place] # (Auto) 0.7 K/mm3 (0.0-0.8) 11/25/20 09:08 Eos # (Auto) 0.0 K/mm3 (0.0-0.4) 11/25/20 09:08 Baso # (Auto) 0.0 K/mm3 (0.0-0.1) 11/25/20 09:08 Seg Neutrophils % 80.9 % (40.0-70.0) H 11/25/20 09:08 Seg Neutrophils # 5.9 K/mm3 (1.8-7.7) 11/25/20 09:08 PT 13.2 Sec. (12.2-14.9) 11/25/20 09:08 INR 1.01 (0.87-1.13) 11/25/20 09:08 APTT 26.9 Sec. (24.2-36.6) 11/25/20 09:08 Sodium 140 mmol/L (137-145) 11/25/20 09:08 Potassium 3.7 mmol/L (3.6-5.0) 11/25/20 09:08 Chloride 103.7 mmol/L (98-107) 11/25/20 09:08 Carbon Dioxide 26 mmol/L (22-30) 11/25/20 09:08 Anion Gap 14 mmol/L 11/25/20 09:08 BUN 6 mg/dL (9-20) L 11/25/20 09:08 Creatinine 0.5 mg/dL (0.8-1.3) L 11/25/20 09:08 Estimated GFR > 60 ml/min 11/25/20 09:08 BUN/Creatinine Ratio 12 % 11/25/20 09:08 Glucose 122 mg/dL (75-100) H 11/25/20 09:08 POC Glucose 121 mg/dL (70-105) H 11/25/20 07:56 Lactic Acid 1.10 mmol/L (0.7-2.0) 11/25/20 11:52 Calcium 9.0 mg/dL (8.4-10.2) 11/25/20 09:08 Magnesium 1.80 mg/dL (1.7-2.3) 11/25/20 10:18 Total Bilirubin 0.30 mg/dL (0.1-1.2) 11/25/20 09:08 AST 39 units/L (5-40) 11/25/20 09:08 ALT 19 units/L (7-56) 11/25/20 09:08 Alkaline Phosphatase 106 units/L (35-129) 11/25/20 09:08 Ammonia 20.0 umol/L (25-60) L 11/25/20 10:18 Total Creatine Kinase 1549 units/L (55-170) H 11/25/20 10:18 CK-MB (CK-2) 29.8 ng/mL (0.0-4.0) H 11/25/20 10:18 CK-MB (CK-2) Rel Index 1.9 (0-4) 11/25/20 10:18 Troponin T < 0.010 ng/mL (0.00-0.029) 11/25/20 09:08 Troponin T < 0.010 ng/mL (0.00-0.029) 11/25/20 09:08 NT-Pro-B Natriuret Pep 44.81 pg/mL (0-900) 11/25/20 10:18 Total Protein 7.4 g/dL (6.3-8.2) 11/25/20 09:08 Albumin 3.6 g/dL (3.9-5) L 11/25/20 09:08 Albumin/Globulin Ratio 0.9 % 11/25/20 09:08 Lipase 9 units/L (13-60) L 11/25/20 10:18 Urine Color Straw (Yellow) 11/25/20: Urine Turbidity Clear (Clear) 11/25/20 09: Urine pH 6.0 (5.0-7.0) 11/25/20: Ur Specific [place] 1.006 (1.003-1.030) 11/25/20: Urine Protein <15 mg/dl mg/dL (Negative) 11/25/20: Urine Glucose (UA) Neg mg/dL (Negative) 11/25/20: Urine Ketones Neg mg/dL (Negative) 11/25/20: Urine Blood Neg (Negative) 11/25/20: Urine Nitrite Neg (Negative) 11/25/20: Ur Reducing Substances Not Reportable 11/25/20: Urine Bilirubin Neg (Negative) 11/25/20: Urine Ictotest Not Reportable 11/25/20: Urine Urobilinogen < 2.0 mg/dL (<2.0) 11/25/20: Ur Leukocyte Esterase Neg (Negative) 11/25/20: Urine WBC (Auto) < 1.0 /HPF (0.0-6.0) 11/25/20: Urine RBC (Auto) < 1.0 /HPF (0.0-6.0) 11/25/20: Urine Mucus Few /HPF 11/25/20: Salicylates < 0.3 mg/dL (2.8-20.0) L 11/25/20 09:08 Urine Opiates Screen Negative 11/25/20: Urine Methadone Screen Negative 11/25/20: Acetaminophen 5.0 ug/mL (10.0-30.0) L 11/25/20 09:08 Ur Barbiturates Screen Negative 11/25/20: Ur Phencyclidine Scrn Negative 11/25/20:22 Ur Amphetamines Screen Negative 11/25/20: U Benzodiazepines Scrn Positive 11/25/20: Urine Cocaine Screen Negative 05/16/21 09:22 U Marijuana (THC) Screen Negative 11/25/20 09:22 Drugs of Abuse Note Disclamer 11/25/20 09:22 Plasma/Serum Alcohol < 0.01 % (0-0.07) 11/25/20 10:18 Microbiology: Microbiology 11/25/20 06:48 Peripheral/Venous Blood Culture - Preliminary Culture in Progress 11/25/20 08:39 Peripheral/Venous Blood Culture - Preliminary Culture in Progress Galindo/IV: Voiding Method Toilet Active Medications - Current Medications Current Medications: Generic Name Dose Route Start Last Admin Trade Name Freq PRN Reason Stop Dose Admin Acetaminophen 650 mg 11/25/20 12:54 Acetaminophen 325 Mg Tab PO Q4H PRN Pain MILD(1-3)/Fever >100.5/MCDANIEL Ferrous Gluconate 324 mg 11/25/20 22:00 11/25/20 21:09 Ferrous Gluconate 324 Mg Tab PO 324 mg BID JOAN Administration Fluoxetine HCl 20 mg 11/26/20 10:00 Fluoxetine 20 Mg Cap PO QAM JOAN Folic Acid 1 mg 11/26/20 10:00 Folic Acid 1 Mg Tab PO QDAY JOAN Levofloxacin/Dextrose 750 mg in 150 mls @ 100 mls/hr 11/25/20 14:00 11/25/20 17:05 Levaquin 750mg/150ml IV Not Given Q24H JOAN Protocol Sodium Chloride 1,000 mls @ 125 mls/hr 11/25/20 13:30 11/26/20 01:59 Nacl 0.9% 1000 Ml IV 125 mls/hr DIRECT JOAN Administration Lorazepam 2 mg 11/25/20 12:52 11/26/20 05:21 Lorazepam 2 Mg/Ml Vial IV 2 mg Q1HR PRN Administration CIWA-Ar 8-15 Ondansetron HCl 4 mg 11/25/20 12:54 Ondansetron 4 Mg/2 Ml Inj IV Q8H PRN Nausea And Vomiting Pantoprazole Sodium 40 mg 11/26/20 10:00 Pantoprazole 40 Mg Tab PO QDAY JOAN Potassium Chloride 20 meq 11/25/20 22:00 11/25/20 21:09 Potassium Chloride Er 20 Meq Tab PO 20 meq BID JOAN Administration Quetiapine Fumarate 500 mg 11/25/20 22:00 11/25/20 21:10 Quetiapine 200 Mg Tab PO 500 mg QHS JOAN Administration Sodium Chloride 10 ml 11/25/20 22:00 11/25/20 21:10 Sodium Chloride 0.9% 10 Ml Flush Syringe IV 10 ml BID JOAN Administration Sodium Chloride 10 ml 11/25/20 12:54 Sodium Chloride 0.9% 10 Ml Flush Syringe IV PRN PRN LINE FLUSH
[2020-11-26 08:40] LABS: Basophils % (Auto) 0.4 % (0.0-1.8); Eosinophils # (Auto) 0.1 K/mm3 (0.0-0.4); Eosinophils % (Auto) 1.1 % (0.0-4.3); Lymphocytes # (Auto) 1.5 K/mm3 (1.2-5.4); Lymphocytes % (Auto) 19.4 % (13.4-35.0); Mean Corpuscular HGB Conc 31 % (32-34); Mean Corpuscular Volume 72 fl (84-94); Monocytes # (Auto) 0.8 K/mm3 (0.0-0.8); Monocytes % (Auto) 10.8 % (0.0-7.3); Platelet Count 283 K/mm3 (140-440); Red Blood Count 4.03 M/mm3 (3.65-5.03); Red Cell Distribution Width 19.8 % (13.2-15.2)
[2020-11-26 08:56] LABS: BUN/Creatinine Ratio 6; Blood Urea Nitrogen 5 mg/dL (9-20); Calcium 8.6 mg/dL (8.4-10.2); Hemolysis Index 0
[2020-11-26] MEDS: FLUoxetine 20 MG CAP PO SCH (10:02)
[2020-11-26] MEDS: POTASSIUM CHLORIDE ER 20 MEQ TAB PO SCH ×2 (10:02→22:33)
[2020-11-26] MEDS: PANTOPRAZOLE 40 MG TAB PO SCH (10:02)
[2020-11-26] MEDS: FOLIC ACID 1 MG TAB PO SCH (10:02)
[2020-11-26] MEDS: FERROUS GLUCONATE 324 MG TAB PO SCH ×2 (10:02→22:33)
--- NOTE | 2020-11-26 14:31 | Consultation ---
History of Present Illness - Reason for Consult Consult date: 11/26/20 - History of Present Illness 54-year-old man past medical history paranoid schizophrenia, alcohol dependence with history of pancreatitis, esophagitis, HTN, cirrhosis, GERD presented to hospital with altered mental status. On presentation he was found to have a right lower lobe pneumonia, rhabdomyolysis as well as metabolic encephalopathy. He had no subjective complaints in the setting of altered mental status. Afebrile with some low temperatures, white count 7.8. Elevated lactic acid which has returned to normal. Normal renal function. Improving creatinine kinase. Normal blood cultures. Currently on levofloxacin. Covid test pending. Imaging personally reviewed: Chest x-ray: Right lung base opacity Review of systems: Deferred to reduce to the risk of transmission of COVID-19 Past History Past Medical History: anemia, GERD, hypertension, other (See HPI) Past Surgical History: hernia repair, Other (right ankle surgery) Social history: alcohol abuse Family history: hypertension Medications and Allergies Allergies Allergy/AdvReac Type Severity Reaction Status Date / Time Penicillins Allergy Hives Verified 10/31/20 13:49 Home Medications Medication Instructions Recorded Confirmed Last Taken Type Quetiapine Fumarate [SEROquel] 300 mg PO QHS 10/11/20 11/25/20 Unknown History FLUoxetine [PROzac] 20 mg PO QAM #30 capsule 10/16/20 11/25/20 Unknown Rx Temazepam [Restoril] 30 mg PO QAM 10/28/20 10/28/20 Unknown History Multivitamin with Folic Acid [Cvs 400 mcg PO QDAY #30 tablet 11/18/20 11/25/20 Unknown Rx One Daily Essential Tablet] Pantoprazole [Protonix TAB] 40 mg PO QDAY #30 11/18/20 11/25/20 Unknown Rx Potassium Chloride [K-Dur] 20 meq PO BID #30 tab 11/18/20 11/25/20 Unknown Rx chlordiazePOXIDE [Librium] 25 mg PO Q6H PRN #25 capsule 11/18/20 11/25/20 Unknown Rx Amlodipine Besylate [Norvasc] 5 mg PO 11/25/20 Unknown History Active Meds: Active Medications Acetaminophen (Acetaminophen 325 Mg Tab) 650 mg PO Q4H PRN PRN Reason: Pain MILD(1-3)/Fever >100.5/MCDANIEL Ferrous Gluconate (Ferrous Gluconate 324 Mg Tab) 324 mg PO BID [facility] Last Admin: 11/26/20 10:02 Dose: 324 mg Documented by: Fluoxetine HCl (Fluoxetine 20 Mg Cap) 20 mg PO QAM [facility] Last Admin: 11/26/20 10:02 Dose: 20 mg Documented by: Folic Acid (Folic Acid 1 Mg Tab) 1 mg PO QDAY [facility] Last Admin: 11/26/20 10:02 Dose: 1 mg Documented by: Levofloxacin/Dextrose (Levaquin 750mg/150ml) 750 mg in 150 mls @ 100 mls/hr IV Q24H [facility]; Protocol Last Admin: 11/25/20 17:05 Dose: Not Given Documented by: Sodium Chloride (Nacl 0.9% 1000 Ml) 1,000 mls @ 125 mls/hr IV DIRECT [facility] Last Admin: 11/26/20 13:48 Dose: 125 mls/hr Documented by: Lorazepam (Lorazepam 2 Mg/Ml Vial) 2 mg IV Q1HR PRN PRN Reason: CIWA-Ar 8-15 Last Admin: 11/26/20 05:21 Dose: 2 mg Documented by: Ondansetron HCl (Ondansetron 4 Mg/2 Ml Inj) 4 mg IV Q8H PRN PRN Reason: Nausea And Vomiting Pantoprazole Sodium (Pantoprazole 40 Mg Tab) 40 mg PO QDAY [facility] Last Admin: 11/26/20 10:02 Dose: 40 mg Documented by: Potassium Chloride (Potassium Chloride Er 20 Meq Tab) 20 meq PO BID [facility] Last Admin: 11/26/20 10:02 Dose: 20 meq Documented by: Quetiapine Fumarate (Quetiapine 200 Mg Tab) 500 mg PO QHS [facility] Last Admin: 11/25/20 21:10 Dose: 500 mg Documented by: Sodium Chloride (Sodium Chloride 0.9% 10 Ml Flush Syringe) 10 ml IV BID [facility] Last Admin: 11/26/20 10:03 Dose: 10 ml Documented by: Sodium Chloride (Sodium Chloride 0.9% 10 Ml Flush Syringe) 10 ml IV PRN PRN PRN Reason: LINE FLUSH Physical Examination - Physical Exam Narrative exam: Physical exam deferred to reduce risk of transmission of COVID-19. Please refer to primary team's note. - Constitutional Vitals: Vital Signs Temp Pulse Resp BP Pulse Ox 98.4 F 64 16 103/66 99 11/26/20 11:19 11/26/20 11:19 11/26/20 11:19 11/26/20 11:19 11/26/20 11:32 Temperature -Last 24 Hours Temperature 98.4 F Temperature 98.7 F Temperature 99.7 F Temperature 98 F Results - Labs CBC & Chem 7: 11/26/20 07:22 11/26/20 07:22 Labs: Abnormal lab results 11/26/20 11/26/20 Range/Units 07:22 07:22 Hgb 9.0 L (11.8-15.2) gm/dl Hct 29.0 L (35.5-45.6) % MCV 72 L (84-94) fl MCH 22 L (28-32) pg MCHC 31 L (32-34) % RDW 19.8 H (13.2-15.2) % [place] % (Auto) 10.8 H (0.0-7.3) % BUN 5 L (9-20) mg/dL Glucose 71 L (75-100) mg/dL Total Creatine Kinase 992 H (55-170) units/L Assessment and Plan Cultures: Blood culture 11/25/2020 no growth so far Covid pending A/P: 54-year-old man past medical history paranoid schizophrenia, alcohol dependence with history of pancreatitis, esophagitis, HTN, cirrhosis, GERD admitted with pneumonia #Right-sided pneumonia: Pending Covid test. Pending procalcitonin. Currently on room air. #Altered mental status: Possibly secondary to infection versus benzodiazepine seen on tox screen #Rhabdomyolysis: Improving creatinine kinase Recs: -Continue empiric levofloxacin for now -Follow-up Covid PCR -Follow-up procalcitonin. Thank you for the consult, we will continue to follow. Fernando Thayer MD [facility] ([facility] O: [phone] F: [phone]
[2020-11-26 19:11] LABS: C-Reactive Protein 6.7 mg/dL (0.00-1.30)
[2020-11-26] MEDS: QUEtiapine 200 MG TAB PO SCH (22:34)
[2020-11-27] MEDS: SODIUM CHLORIDE 0.9% 1000 ML 1,000 ML IV SCH ×2 (06:35→16:31)
[2020-11-27 08:10] LABS: Basophils % (Auto) 0.6 % (0.0-1.8); Eosinophils # (Auto) 0.1 K/mm3 (0.0-0.4); Eosinophils % (Auto) 1.9 % (0.0-4.3); Hematocrit 31.7 % (35.5-45.6); Hemoglobin 9.7 gm/dl (11.8-15.2); Lymphocytes # (Auto) 1.7 K/mm3 (1.2-5.4); Lymphocytes % (Auto) 25.5 % (13.4-35.0); Mean Corpuscular HGB Conc 31 % (32-34); Mean Corpuscular Volume 72 fl (84-94); Monocytes # (Auto) 0.9 K/mm3 (0.0-0.8); Monocytes % (Auto) 12.9 % (0.0-7.3); Platelet Count 309 K/mm3 (140-440); Red Blood Count 4.38 M/mm3 (3.65-5.03)
[2020-11-27 08:15] LABS: Red Cell Distribution Width 20.4 % (13.2-15.2)
[2020-11-27 08:26] LABS: Blood Urea Nitrogen 4 mg/dL (9-20); Calcium 9.4 mg/dL (8.4-10.2); Hemolysis Index 117
[2020-11-27 08:32] LABS: BUN/Creatinine Ratio 6
[2020-11-27] MEDS: FLUoxetine 20 MG CAP PO SCH (09:07)
[2020-11-27] MEDS: FOLIC ACID 1 MG TAB PO SCH (09:07)
[2020-11-27] MEDS: ACETAMINOPHEN 325 MG TAB PO PRN ×2 (09:08→21:26)
[2020-11-27] MEDS: FERROUS GLUCONATE 324 MG TAB PO SCH ×2 (09:08→21:26)
[2020-11-27] MEDS: POTASSIUM CHLORIDE ER 20 MEQ TAB PO SCH (09:08)
[2020-11-27] MEDS: LORazepam 2 MG/ML VIAL IV PRN ×2 (09:08→21:26)
[2020-11-27] MEDS: PANTOPRAZOLE 40 MG TAB PO SCH (09:08)
--- NOTE | 2020-11-27 10:59 | Progress Note ---
Assessment and Plan Assessment and plan: Sepsis. Present on admission. Patient meets criteria given the hypothermia, tachycardia and diagnosis of pneumonia. However patient's procalcitonin is normal procalcitonin is normal, WBC count no need for antibiotics Viral pneumonia versus atelectasis, no need for antibiotics Right lower lobe pneumonia/no need for antibiotics Rhabdomyolysis/trending down, follow CK levels this morning Obesity BMI 31.7, advised weight reduction EtOH dependence/withdrawal, strongly advised to quit alcohol intake Seek alcohol rehabilitation Toxic metabolic encephalopathy; present on admission now resolved DC planning per case management; Patient is homeless, safe discharge planning per CM Possible discharge home tomorrow 11/26/2020. Continue IV antibiotics. Consult ID for further evaluation. Check Covid testing and follow-up inflammatory markers. Continue IV fluid hydration and follow-up CK levels. Continue CIWA protocol. 11/27/2020; patient feels better no new complaints, DC planning per case man agement Possible discharge tomorrow, no need for antibiotics, patient does not require home oxygen DC a.m. if stable History Interval history: I seen and examined the patient at the bedside Patient's chart and medications reviewed Patient feels slightly better Vital signs noted Hospitalist Physical - Constitutional Vitals: Temp Pulse Resp BP Pulse Ox 98.9 F 81 19 124/86 96 11/27/20 04:06 11/27/20 10:00 11/27/20 10:00 11/27/20 04:06 11/27/20 09:04 General appearance: Present: no acute distress, obese - EENT Eyes: Present: PERRL, EOM intact - Neck Neck: Present: supple, normal ROM - Respiratory Respiratory effort: normal Respiratory: bilateral: diminished, negative: rales, rhonchi, wheezing - Cardiovascular Rhythm: regular Heart Sounds: Present: S1 & S2 - Extremities Extremities: no ischemia, No edema - Abdominal General gastrointestinal: soft, non-tender, non-distended, normal bowel sounds - Integumentary Integumentary: Present: clear, warm - Psychiatric Psychiatric: appropriate mood/affect, cooperative - Neurologic Neurologic: CNII-XII intact, moves all extremities HEART Score - HEART Score Troponin: Troponin T < 0.010 ng/mL (0.00-0.029) 11/25/20 09:08 Troponin T < 0.010 ng/mL (0.00-0.029) 11/25/20 09:08 Results - Labs CBC & Chem 7: 11/27/20 07:43 11/27/20 07:43 Labs: Laboratory Last Values WBC 6.7 K/mm3 (4.5-11.0) 11/27/20 07:43 RBC 4.38 M/mm3 (3.65-5.03) 11/27/20 07:43 Hgb 9.7 gm/dl (11.8-15.2) L 11/27/20 07:43 Hct 31.7 % (35.5-45.6) L 11/27/20 07:43 MCV 72 fl (84-94) L 11/27/20 07:43 MCH 22 pg (28-32) L 11/27/20 07:43 MCHC 31 % (32-34) L 11/27/20 07:43 RDW 20.4 % (13.2-15.2) H 11/27/20 07:43 Plt Count 309 K/mm3 (140-440) 11/27/20 07:43 Lymph % (Auto) 25.5 % (13.4-35.0) 11/27/20 07:43 [place] % (Auto) 12.9 % (0.0-7.3) H 11/27/20 07:43 Eos % (Auto) 1.9 % (0.0-4.3) 11/27/20 07:43 Baso % (Auto) 0.6 % (0.0-1.8) 11/27/20 07:43 Lymph # (Auto) 1.7 K/mm3 (1.2-5.4) 11/27/20 07:43 [place] # (Auto) 0.9 K/mm3 (0.0-0.8) H 11/27/20 07:43 Eos # (Auto) 0.1 K/mm3 (0.0-0.4) 11/27/20 07:43 Baso # (Auto) 0.0 K/mm3 (0.0-0.1) 11/27/20 07:43 Seg Neutrophils % 59.1 % (40.0-70.0) 11/27/20 07:43 Seg Neutrophils # 4.0 K/mm3 (1.8-7.7) 11/27/20 07:43 PT 13.2 Sec. (12.2-14.9) 11/25/20 09:08 INR 1.01 (0.87-1.13) 11/25/20 09:08 APTT 26.9 Sec. (24.2-36.6) 11/25/20 09:08 D-Dimer 501.95 ng/mlDDU (0-234) H 11/26/20 18:09 Sodium 138 mmol/L (137-145) 11/27/20 07:43 Potassium 5.2 mmol/L (3.6-5.0) H D 11/27/20 07:43 Chloride 102.2 mmol/L (98-107) 11/27/20 07:43 Carbon Dioxide 24 mmol/L (22-30) 11/27/20 07:43 Anion Gap 17 mmol/L 11/27/20 07:43 BUN 4 mg/dL (9-20) L 11/27/20 07:43 Creatinine 0.7 mg/dL (0.8-1.3) L 11/27/20 07:43 Estimated GFR > 60 ml/min 11/27/20 07:43 BUN/Creatinine Ratio 6 % 11/27/20 07:43 Glucose 76 mg/dL (75-100) 11/27/20 07:43 POC Glucose 121 mg/dL (70-105) H 11/25/20 07:56 Lactic Acid 1.10 mmol/L (0.7-2.0) 11/25/20 11:52 Calcium 9.4 mg/dL (8.4-10.2) 11/27/20 07:43 Magnesium 1.80 mg/dL (1.7-2.3) 11/25/20 10:18 Ferritin 18.4 ng/mL (30.0-300.0) L 11/26/20 18:09 Total Bilirubin 0.30 mg/dL (0.1-1.2) 11/25/20 09:08 AST 39 units/L (5-40) 11/25/20 09:08 ALT 19 units/L (7-56) 11/25/20 09:08 Alkaline Phosphatase 106 units/L (35-129) 11/25/20 09:08 Ammonia 20.0 umol/L (25-60) L 11/25/20 10:18 Lactate Dehydrogenase 230 units/L (91-180) H 11/26/20 18:09 Total Creatine Kinase 992 units/L (55-170) H 11/26/20 07:22 CK-MB (CK-2) 29.8 ng/mL (0.0-4.0) H 11/25/20 10:18 CK-MB (CK-2) Rel Index 1.9 (0-4) 11/25/20 10:18 Troponin T < 0.010 ng/mL (0.00-0.029) 11/25/20 09:08 Troponin T < 0.010 ng/mL (0.00-0.029) 11/25/20 09:08 C-Reactive Protein 6.70 mg/dL (0.00-1.30) H 11/26/20 18:09 NT-Pro-B Natriuret Pep 44.81 pg/mL (0-900) 11/25/20 10:18 Total Protein 7.4 g/dL (6.3-8.2) 11/25/20 09:08 Albumin 3.6 g/dL (3.9-5) L 11/25/20 09:08 Albumin/Globulin Ratio 0.9 % 11/25/20 09:08 Lipase 9 units/L (13-60) L 11/25/20 10:18 Procalcitonin 0.05 ng/mL (<0.15) 11/26/20 18:09 Urine Color Straw (Yellow) 11/25/20 09:22 Urine Turbidity Clear (Clear) 11/25/20 09: Urine pH 6.0 (5.0-7.0) 11/25/20 09:22 Ur Specific [place] 1.006 (1.003-1.030) 11/25/20 09:22 Urine Protein <15 mg/dl mg/dL (Negative) 11/25/20 09:22 Urine Glucose (UA) Neg mg/dL (Negative) 11/25/20: Urine Ketones Neg mg/dL (Negative) 11/25/20 09: Urine Blood Neg (Negative) 11/25/20 09: Urine Nitrite Neg (Negative) 11/25/20: Ur Reducing Substances Not Reportable 11/25/20: Urine Bilirubin Neg (Negative) 11/25/20 09:22 Urine Ictotest Not Reportable 11/25/20 09:22 Urine Urobilinogen < 2.0 mg/dL (<2.0) 11/25/20 09:22 Ur Leukocyte Esterase Neg (Negative) 11/25/20 09:22 Urine WBC (Auto) < 1.0 /HPF (0.0-6.0) 11/25/20 09:22 Urine RBC (Auto) < 1.0 /HPF (0.0-6.0) 11/25/20 09:22 Urine Mucus Few /HPF 11/25/20 09:22 Salicylates < 0.3 mg/dL (2.8-20.0) L 11/25/20 09:08 Urine Opiates Screen Negative 11/25/20 09:22 Urine Methadone Screen Negative 11/25/20 09:22 Acetaminophen 5.0 ug/mL (10.0-30.0) L 11/25/20 09:08 Ur Barbiturates Screen Negative 11/25/20 09:22 Ur Phencyclidine Scrn Negative 11/25/20 09:22 Ur Amphetamines Screen Negative 11/25/20 09:22 U Benzodiazepines Scrn Positive 11/25/20 09:22 Urine Cocaine Screen Negative 11/25/20 09:22 U Marijuana (THC) Screen Negative 11/25/20 09:22 Drugs of Abuse Note Disclamer 11/25/20 09:22 Plasma/Serum Alcohol < 0.01 % (0-0.07) 11/25/20 10:18 Coronavirus (PCR) Negative (Negative) 11/26/20 Unknown Microbiology: Microbiology 11/25/20 06:48 Peripheral/Venous Blood Culture - Preliminary NO GROWTH AFTER 48 HOURS 11/25/20 08:39 Peripheral/Venous Blood Culture - Preliminary NO GROWTH AFTER 48 HOURS Galindo/IV: Voiding Method Urinal Active Medications - Current Medications Current Medications: Generic Name Dose Route Start Last Admin Trade Name Freq PRN Reason Stop Dose Admin Acetaminophen 650 mg 11/25/20 12:54 11/27/20 09:08 Acetaminophen 325 Mg Tab PO 650 mg Q4H PRN Administration Pain MILD(1-3)/Fever >100.5/MCDANIEL Ferrous Gluconate 324 mg 11/25/20 22:00 11/27/20 09:08 Ferrous Gluconate 324 Mg Tab PO 324 mg BID JOAN Administration Fluoxetine HCl 20 mg 11/26/20 10:00 11/27/20 09:07 Fluoxetine 20 Mg Cap PO 20 mg QAM JOAN Administration Folic Acid 1 mg 11/26/20 10:00 11/27/20 09:07 Folic Acid 1 Mg Tab PO 1 mg QDAY JOAN Administration Levofloxacin/Dextrose 750 mg in 150 mls @ 100 mls/hr 11/25/20 14:00 11/26/20 15:35 Levaquin 750mg/150ml IV 100 mls/hr Q24H JOAN Administration Protocol Sodium Chloride 1,000 mls @ 125 mls/hr 11/25/20 13:30 11/27/20 06:35 Nacl 0.9% 1000 Ml IV 125 mls/hr DIRECT JOAN Administration Lorazepam 2 mg 11/25/20 12:52 11/27/20 09:08 Lorazepam 2 Mg/Ml Vial IV 2 mg Q1HR PRN Administration NATMaurice 8-15 Ondansetron HCl 4 mg 11/25/20 12:54 11/27/20 09:07 Ondansetron 4 Mg/2 Ml Inj IV 4 mg Q8H PRN Administration Nausea And Vomiting Pantoprazole Sodium 40 mg 11/26/20 10:00 11/27/20 09:08 Pantoprazole 40 Mg Tab PO 40 mg QDAY JOAN Administration Quetiapine Fumarate 500 mg 11/25/20 22:00 11/26/20 22:34 Quetiapine 200 Mg Tab PO 500 mg QHS JOAN Administration Sodium Chloride 10 ml 11/25/20 22:00 11/27/20 09:09 Sodium Chloride 0.9% 10 Ml Flush Syringe IV 10 ml BID JOAN Administration Sodium Chloride 10 ml 11/25/20 12:54 Sodium Chloride 0.9% 10 Ml Flush Syringe IV PRN PRN LINE FLUSH Nutrition/Malnutrition Assess - Dietary Evaluation Nutrition/Malnutrition Findings: Nutrition Notes Start: 11/26/20 14:42 Freq: Status: Active Protocol: Document 11/26/20 14:42 CW (Rec: 11/26/20 14:55 CW [email or web address]) Nutrition Notes 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 Per past visit hx, weight flucutuates greatly; UBW appears around 89 kg based on weight on 11/11/2020 and 10/11. Pt appears to have good appetite as displayed by pt requesting meals. Per chart pt intaking 50% of meal Pt did not answer phone x2. Current % PO Fair (50-74%) Minimum of two criteria No physical signs of malnutrition #1 Nutrition Diagnosis Inadequate oral intake Etiology pt on clear liquid diet As Evidenced by Signs and Symptoms Pt unabel to meet nutritional needs via cl liq diet Is patient on ventilator? No Is Patient Ambulatory and/or Out of Bed Yes REE-([place]-St. Jeor-ambulatory/OOB) [ 2331.719 NUTR.MSJOOB] Kcal/Kg value to use for calculation 18 Approximate Energy Requirements Using 1782 kcal/Kg Calculation Used for Recommendations Kcal/kg Additional Notes Protein needs: 83 - 100g (1 - 1.2 g/kgAdjBW for cirrhosis 83kg ) fluid need 1 ml/kcal Nutrition Intervention Change Diet Order: Diet advancement as medically feasible Add Supplement/Snack (indicate name/kcal Ensure Clear TID /protein ) Provides kCal: 720 Provides Protein (gm) 24 Goal #1 Diet advancement Goal #2 Meet at least 75% of kcal and protein needs via PO and ONS Anticipated Discharge Needs: Cardiac Diet Follow-Up By: 11/28/20 Additional Comments F/U for diet advancement and intakes
--- NOTE | 2020-11-27 14:16 | Progress Note ---
Assessment and Plan Cultures: Blood culture 11/25/2020 no growth so far Covid negative A/P: 54-year-old man past medical history paranoid schizophrenia, alcohol dependence with history of pancreatitis, esophagitis, HTN, cirrhosis, GERD admitted with pneumonia #Right-sided pneumonia: Negative Covid. Normal procalcitonin. Currently on room air. Viral pneumonia versus atelectasis #Altered mental status: Possibly secondary to infection versus benzodiazepine seen on tox screen #Rhabdomyolysis: Improving creatinine kinase Recs: -Normal procalcitonin, white count. No need for antibiotics. Thank you for the consult, we will sign off. Please call with questions. Fernando Thayer MD [facility] ([facility]) O: [phone] F: [phone] Subjective Date of service: 11/27/20 Interval history: Afebrile, normal white count. Cultures remain no growth so far. Objective - Exam Narrative Exam: Physical Exam: Constitutional: Alert, cooperative. No acute distress Head, Ears, Nose: Normocephalic, atraumatic. External ears, nose normal Eyes: Conjunctivae/corneas clear. No icterus. No ptosis. Neck: Supple, no meningeal signs Oral: dentition fair, no thrush Cardiovascular: S1, S2 normal. Respiratory: Good air entry, clear to auscultation bilaterally GI: Soft, non-tender; bowel sounds normal. No peritoneal signs. Musculoskeletal: No pedal edema, no cyanosis. Skin: No rash or abscess Hem/Lymphatic: No palpable cervical or supraclavicular nodes. Psych: Mood ok. Affect normal Neurological: Awake, alert, oriented. No gross abnormality - Constitutional Vitals: Vital Signs Temp Pulse Resp BP Pulse Ox 98.3 F 90 19 118/61 99 11/27/20 11:30 11/27/20 11:30 11/27/20 11:30 11/27/20 11:30 11/27/20 11:30 Temperature -Last 24 Hours Temperature 98.3 F Temperature 98.9 F Temperature 97.7 F Temperature 97.8 F - Labs CBC & Chem 7: 11/27/20 07:43 11/27/20 07:43 Labs: Abnormal lab results 11/26/20 11/26/20 11/26/20 Range/Units 18:09 18:09 18:09 Hgb (11.8-15.2) gm/dl Hct (35.5-45.6) % MCV (84-94) fl MCH (28-32) pg MCHC (32-34) % RDW (13.2-15.2) % [place] % (Auto) (0.0-7.3) % [place] # (Auto) (0.0-0.8) K/mm3 D-Dimer 501.95 H (0-234) ng/mlDDU Potassium (3.6-5.0) mmol/L BUN (9-20) mg/dL Creatinine (0.8-1.3) mg/dL Ferritin 18.4 L (30.0-300.0) ng/mL Lactate Dehydrogenase 230 H (91-180) units/L C-Reactive Protein 6.70 H (0.00-1.30) mg/dL 11/27/20 11/27/20 Range/Units 07:43 07:43 Hgb 9.7 L (11.8-15.2) gm/dl Hct 31.7 L (35.5-45.6) % MCV 72 L (84-94) fl MCH 22 L (28-32) pg MCHC 31 L (32-34) % RDW 20.4 H (13.2-15.2) % [place] % (Auto) 12.9 H (0.0-7.3) % [place] # (Auto) 0.9 H (0.0-0.8) K/mm3 D-Dimer (0-234) ng/mlDDU Potassium 5.2 H D (3.6-5.0) mmol/L BUN 4 L (9-20) mg/dL Creatinine 0.7 L (0.8-1.3) mg/dL Ferritin (30.0-300.0) ng/mL Lactate Dehydrogenase (91-180) units/L C-Reactive Protein (0.00-1.30) mg/dL
--- NOTE | 2020-11-27 17:49 | Electrocardiograph Report ---
[facility] Test Date: 2020-11-25 Test Time: 08:55:07 Pat Name: FOREIGN MARS Department: Room: A382 Gender: M Donor Services Coordinator: KRISS : 1965 Requested By: GORDON JERRY Order Number: [id number] Reading MD: Bryon Ledezma Measurements Intervals [place] Rate: 77 P: 56 [place]: 187 QRS: 42 QRSD: 98 T: 17 QT: 426 QTc: 481 Interpretive Statements Sinus rhythm Probable left atrial enlargement Compared to ECG 11/22/2020 21:52:56 No significant changes Electronically Signed On 11-27-2020 17:49:21 EDT by Bryon Ledezma
[2020-11-27] MEDS: QUEtiapine 200 MG TAB PO SCH (21:25)
[2020-11-28] MEDS: SODIUM CHLORIDE 0.9% 1000 ML 1,000 ML IV SCH (04:05)
[2020-11-28] MEDS: ACETAMINOPHEN 325 MG TAB PO PRN (06:54)
[2020-11-28] MEDS: FOLIC ACID 1 MG TAB PO SCH (09:01)
[2020-11-28] MEDS: FERROUS GLUCONATE 324 MG TAB PO SCH (09:01)
[2020-11-28] MEDS: PANTOPRAZOLE 40 MG TAB PO SCH (09:01)
[2020-11-28] MEDS: FLUoxetine 20 MG CAP PO SCH (09:01)
--- NOTE | 2020-11-28 10:59 | Discharge Summary ---
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 Work-up is consistent with sepsis secondary to pneumonia right lower lobe initiated empiric antibiotics however procalcitonin is low and antibiotics discontinued, Patient has history of chronic alcohol use, counseling done strongly advised to quit, placed on [facility] protocol monitor for alcohol withdrawal symptoms. All lab and imaging studies reviewed. Patient also has metabolic encephalopathy. Patient admitted to medical floor , appropriately managed. Work-up is consistent with pneumonia however patient's procalcitonin is normal no need for antibiotics possible viral pneumonia, managed with IV fluids rhabdomyolysis gradually improved Patient counseled strongly advised to quit alcohol intake, seek alcohol rehabilitation, and alcohol Anonymous support group Verbalized understanding Today patient is comfortable no new complaints vital signs stable Physical examination prior to discharge did not show any new findings Case management to assist with DC planning Stable at discharge. Discharge diagnosis; --Sepsis. Present on admission. Patient meets criteria given the hypothermia, tachycardia and diagnosis of pneumonia. However patient's procalcitonin is normal procalcitonin is normal, WBC count no need for antibiotics Viral pneumonia versus atelectasis, no need for antibiotics --Right lower lobe pneumonia/probably viral no need for antibiotics --Rhabdomyolysis/trending down, --Obesity BMI 31.7, advised weight reduction --EtOH dependence/withdrawal, strongly advised to quit alcohol intake Seek alcohol rehabilitation --Toxic metabolic encephalopathy; present on admission now resolved DC planning per case management; Patient is homeless, safe discharge planning per Patient symptoms significantly improved Stable at discharge Patient states he is homeless Case management gave him the resources Disposition: DC-01 TO HOME OR SELFCARE Final Discharge Diagnosis (Prints w/discharge instructions): Sepsis. Right lower lobe pneumonia. Viral pneumonia. Rhabdomyolysis. Toxic metabolic encephalopathy. Alcohol withdrawals. l Time spent for discharge: 35 min Core Measure Documentation - Palliative Care Palliative Care/ Comfort Measures: Not Applicable - Core Measures Any of the following diagnoses?: none Exam - Constitutional Vitals: Temp Pulse Resp BP Pulse Ox 98.0 F 82 16 119/75 98 11/28/20 04:30 11/28/20 04:30 11/28/20 04:30 11/28/20 04:30 11/28/20 04:30 General appearance: Present: no acute distress, well-nourished - EENT Eyes: Present: PERRL, EOM intact - Neck Neck: Present: supple, normal ROM - Respiratory Respiratory effort: normal Respiratory: bilateral: diminished, negative: rales, rhonchi, wheezing - Cardiovascular Rhythm: regular Heart Sounds: Present: S1 & S2 - Extremities Extremities: no ischemia, No edema - Abdominal General gastrointestinal: Present: soft, non-tender, non-distended, normal bowel sounds - Integumentary Integumentary: Present: clear, warm - Musculoskeletal Musculoskeletal: strength equal bilaterally, generalized weakness - Psychiatric Psychiatric: appropriate mood/affect, cooperative - Neurologic Neurologic: CNII-XII intact, moves all extremities Plan Activity: advance as tolerated, fall precautions Diet: regular Additional Instructions: Advised to quit alcohol intake/go for alcohol rehabilitation. Do not drink and drive or operate heavy machinery under the influence of alcohol. If you have worsening symptoms contact MD or go to emergency room Follow up with: PRIMARY CARE,MD [Primary Care Provider] - 3-5 Days Prescriptions: Folic Acid [Folvite] 1 mg PO QDAY #30 tablet Thiamine [Vitamin B-1] 100 mg PO QDAY #30 tablet
[2020-11-28 14:17] VITALS: BP 116/83
== END 2020-11-28 14:23 | disposition home or self-care (01) | DRG 871 ==
LOC: ED 07:18 → 3A 13:53
PROVIDERS: ADMIT Internal Medicine; ATTEND Internal Medicine
DX: A41.9 Sepsis, unspecified organism (principal); G92 Toxic encephalopathy; J12.9 Viral pneumonia, unspecified; Z20.822 Contact with and (suspected) exposure to COVID-19; M62.82 Rhabdomyolysis; F10.232 Alcohol dependence with withdrawal with perceptual disturbance; E66.2 Morbid (severe) obesity with alveolar hypoventilation; T68.XXXA Hypothermia, initial encounter; F20.0 Paranoid schizophrenia; F19.10 Other psychoactive substance abuse, uncomplicated; E11.9 Type 2 diabetes mellitus without complications; D64.9 Anemia, unspecified; K21.9 Gastro-esophageal reflux disease without esophagitis; K74.60 Unspecified cirrhosis of liver; Z79.899 Other long term (current) drug therapy; Z71.3 Dietary counseling and surveillance; Z79.891 Long term (current) use of opiate analgesic; Z79.01 Long term (current) use of anticoagulants; Z88.0 Allergy status to penicillin; Z68.31 Body mass index [BMI] 31.0-31.9, adult; Z59.0 Homelessness; Z86.010 Personal history of colon polyps; Z82.49 Family history of ischemic heart disease and other diseases of the circulatory system
CPT/HCPCS: 36415; 70450; 71045; 80048; 80053; 80307; 80320; 81001; 82140; 82550; 82553; 82728; 82962; 83615; 83690; 83735; 83880; 84145; 84484; 85025; 85379; 85610; 85730; 86140; 87040; 93005; 96365; G0378; G0480; J0692; J1956; J2060; J2405; J7030; U0003

== ENCOUNTER 2021-01-05 02:24 | Emergency (ER) | payer MEDICAID ==
[2021-01-05] MEDS ORDERED: ASPIRIN 325 MG TAB PO ONE (03:55)
--- NOTE | 2021-01-05 04:26 | XRay Report ---
CHEST 1 VIEW INDICATION / CLINICAL INFORMATION: chestpain. FINDINGS: SUPPORT DEVICES: None. HEART / MEDIASTINUM: No significant abnormality. LUNGS / PLEURA: No significant pulmonary or pleural abnormality. No pneumothorax. ADDITIONAL FINDINGS: No significant additional findings. IMPRESSION: 1. No acute findings. Signer Name: Jt Cavanaugh MD Signed: 01/05/2021 4:22 AM Workstation Name: [id number]
[2021-01-05 05:18] LABS: Basophils % (Auto) 0.3 % (0.0-1.8); Eosinophils # (Auto) 0.1 K/mm3 (0.0-0.4); Eosinophils % (Auto) 1.1 % (0.0-4.3); Hemoglobin 11.8 gm/dl (11.8-15.2); Lymphocytes # (Auto) 2.2 K/mm3 (1.2-5.4); Lymphocytes % (Auto) 36.5 % (13.4-35.0); Mean Corpuscular HGB Conc 31 % (32-34); Mean Corpuscular Volume 77 fl (84-94); Monocytes # (Auto) 0.5 K/mm3 (0.0-0.8); Monocytes % (Auto) 9.3 % (0.0-7.3); Platelet Count 176 K/mm3 (140-440); Red Blood Count 4.96 M/mm3 (3.65-5.03)
[2021-01-05 05:20] LABS: Red Cell Distribution Width 22.1 % (13.2-15.2)
[2021-01-05 05:41] LABS: Alanine Aminotransferase 20 units/L (7-56); Albumin 4.2 g/dL (3.9-5); BUN/Creatinine Ratio 8; Blood Urea Nitrogen 6 mg/dL (9-20); Calcium 9.6 mg/dL (8.4-10.2); Hemolysis Index 1
[2021-01-05] MEDS ORDERED: METOCLOPRAMIDE 10 MG/2 ML INJ IV ONE (07:50)
[2021-01-05] MEDS ORDERED: SODIUM CHLORIDE 0.9% 500 ML 500 ML IV ONE (07:50)
[2021-01-05] MEDS ORDERED: FAMOTIDINE 20 MG/2 ML INJ IV ONE (07:50)
--- NOTE | 2021-01-05 07:50 | Emergency Department Report ---
ED Chest Pain HPI - General Chief Complaint: Chest Pain Stated Complaint: ETOH Time Seen by Provider: 01/05/21 07:27 Source: patient Mode of arrival: Stretcher Limitations: No Limitations - History of Present Illness Initial Comments: This is a 55-year-old -Citizen Of [place] male presents to the emergency department with a complaint of some midsternal chest pain and epigastric abdominal pain, along with some shortness of breath, that has been going on since yesterday. The patient has a history of borderline diabetes, hypertension, cirrhosis, previous esophagitis, hiatal hernia, EtOH abuse/dependence, and schizophrenia. He has not taken anything for his symptoms prior to presentation today. His symptoms are associated with some nausea without vomiting. He denies any fever, cough, lower extremity swelling, diarrhea, constipation, dysuria. No recent travel or sick contacts at home. - Related Data Home Medications Medication Instructions Recorded Confirmed Last Taken Quetiapine Fumarate [SEROquel] 300 mg PO QHS 10/11/20 11/25/20 Unknown Amlodipine Besylate [Norvasc] 5 mg PO 11/25/20 Unknown Previous Rx's Medication Instructions Recorded Last Taken Type FLUoxetine [PROzac] 20 mg PO QAM #30 capsule 10/16/20 Unknown Rx Multivitamin with Folic Acid [[facility] 400 mcg PO QDAY #30 tablet 11/18/20 Unknown Rx One Daily Essential Tablet] Pantoprazole [Protonix TAB] 40 mg PO QDAY #30 11/18/20 Unknown Rx Folic Acid [Folvite] 1 mg PO QDAY #30 tablet 11/28/20 Unknown Rx Thiamine [Vitamin B-1] 100 mg PO QDAY #30 tablet 11/28/20 Unknown Rx Famotidine [Pepcid] 20 mg PO BID #20 tablet 01/05/21 Unknown Rx Multivitamin 1 each PO QDAY #30 tablet 01/05/21 Unknown Rx Allergies Allergy/AdvReac Type Severity Reaction Status Date / Time Penicillins Allergy Hives Verified 10/31/20 13:49 Heart Score - HEART Score History: Slightly suspicious EKG: Normal Age: 45-65 Risk factors: 1-2 risk factors Troponin: < normal limit HEART Score: 2 - EKG Read Time Time EKG Completed: 11:14 EKG Read Time: 11:18 - Critical Actions Critical Actions: 0-3 pts:0.9-1.7%risk of adverse cardiac event.Candidate for discharge ED Review of Systems ROS: Stated complaint: ETOH Other details as noted in HPI Comment: All other systems reviewed and negative Constitutional: denies: chills, fever Eyes: denies: eye pain, vision change ENT: denies: ear pain, throat pain Respiratory: shortness of breath. denies: cough Cardiovascular: chest pain. denies: palpitations Gastrointestinal: abdominal pain, nausea. denies: vomiting Genitourinary: denies: dysuria, discharge Musculoskeletal: denies: back pain, arthralgia Skin: denies: rash, lesions Neurological: denies: headache, weakness ED Past Medical Hx - Past Medical History Previous Medical History?: Yes Hx Hypertension: Yes Hx Congestive Heart Failure: No Hx Diabetes: Yes (Pt stated"borderline diabetes") Hx Renal Disease: No Hx Arthritis: No Hx Seizures: No Hx Psychiatric Treatment: Yes (Schizophrenia, Paranoid) Hx Asthma: No Hx COPD: No Hx Dementia: No Additional medical history: Umbillical hernia, colon polyps. colaspe lung/ CIRRHOIS, pancreatitis, ETOH abuse, esophagitis, hiatal hernia - Surgical History Past Surgical History?: Yes Hx Cholecystectomy: No Hx Appendectomy: No Additional Surgical History: ankle right surgery, Hernia - Social History Smoking Status: Current Every Day Smoker Substance Use Type: None - Medications Home Medications: Home Medications Medication Instructions Recorded Confirmed Last Taken Type Quetiapine Fumarate [SEROquel] 300 mg PO QHS 10/11/20 11/25/20 Unknown History FLUoxetine [PROzac] 20 mg PO QAM #30 capsule 10/16/20 11/25/20 Unknown Rx Multivitamin with Folic Acid [[facility] 400 mcg PO QDAY #30 tablet 11/18/20 11/25/20 Unknown Rx One Daily Essential Tablet] Pantoprazole [Protonix TAB] 40 mg PO QDAY #30 11/18/20 11/25/20 Unknown Rx Amlodipine Besylate [Norvasc] 5 mg PO 11/25/20 Unknown History Folic Acid [Folvite] 1 mg PO QDAY #30 tablet 11/28/20 Unknown Rx Thiamine [Vitamin B-1] 100 mg PO QDAY #30 tablet 11/28/20 Unknown Rx Famotidine [Pepcid] 20 mg PO BID #20 tablet 01/05/21 Unknown Rx Multivitamin 1 each PO QDAY #30 tablet 01/05/21 Unknown Rx ED Physical Exam - General Limitations: No Limitations - Other Other exam information: GENERAL: The patient is well-developed well-nourished. HENT: Normocephalic. Atraumatic. Patient has moist mucous membranes. EYES: Extraocular motions are intact. NECK: Supple. Trachea is midline. CHEST/LUNGS: Clear to auscultation. There is no respiratory distress noted. HEART/CARDIOVASCULAR: Regular. There is no tachycardia. There is no murmur. ABDOMEN: Abdomen is soft. Mild epigastric tenderness to palpation. Patient has normal bowel sounds. There is no abdominal distention. SKIN: Skin is warm and dry. NEURO: The patient is awake, alert, and oriented. The patient is cooperative but does appear intoxicated. The patient has no focal neurologic deficits. Normal speech. MUSCULOSKELETAL: There is no tenderness or deformity. There is no limitation range of motion. ED Course Vital Signs 01/05/21 01/05/21 01/05/21 03:47 07:50 08:00 Temperature 98.1 F Pulse Rate 96 H 87 90 Respiratory 18 12 15 Rate Blood Pressure 142/84 139/92 O2 Sat by Pulse 93 100 100 Oximetry 01/05/21 09:01 Temperature Pulse Rate 86 Respiratory 21 Rate Blood Pressure 127/78 O2 Sat by Pulse 99 Oximetry SAGE score - Sage Score Age > 65: (0) No Aspirin use within the Past 7 Days: (0) No 3 or more CAD Risk Factors: (0) No 2 or more Angina events in past 24 hrs: (1) Yes Known CAD with more than 50% Stenosis: (0) No Elevated Cardiac Markers: (0) No ST Deviation Greater than 0.5mm: (0) No SAGE Score: 1 ED Medical Decision Making - Lab Data Result diagrams: 01/05/21 04:40 01/05/21 04:40 - EKG Data -: EKG Interpreted by Me EKG shows normal: sinus rhythm, axis, intervals, QRS complexes, ST-T waves Rate: normal - EKG Data When compared to previous EKG there are: no significant change Interpretation: normal EKG, unchanged when compared t (11/25/20) - Radiology Data Radiology results: image reviewed interpreted by me: Chest x-ray does not show any acute process. There are no pleural effusions, obvious pneumonia and there is no pneumothorax. No widened mediastinum. - Medical Decision Making This patient presents with a complaint of some midsternal chest pain that sometimes radiates down to the epigastrium. He describes it as a burning sensation. Heart and lung sounds are normal to auscultation. He does not appear in any respiratory or acute distress. EKG does not have any morphology consistent ST elevation myocardial infarction. Chest x-ray does not show any pneumonia, pleural effusions, pneumothorax, widened mediastinum, or any other acute process. Patient's labs have been mostly unremarkable including CBC, metabolic panel, negative troponins x3, but the blood alcohol level was 0.19. Patient was given some IV fluid resuscitation and monitor for multiple hours while the chest pain work-up was completed and his blood alcohol level should be under the legal limit of 0.08. The patient appears clinically sober prior to discharge. The patient has a low heart and SAGE score. He does not appear to have any risk factors consistent with thromboembolic disease. Vital signs have been reassuring throughout his ED course including being afebrile. For all these reasons the patient appears safe for discharge home at this time. He is feeling greatly improved after the medications given. His contact information has been sent over to the [facility], and someone from their office should be contacting him shortly for close outpatient follow-up as part of [facility] low [facility]. He has also been given outpatient referral for gastroenterology for his recurrent abdominal pains. He will return to the emergency department with any worsening of his symptoms or with any acute distress. Critical Care Time: No Critical care attestation.: If time is entered above; I have spent that time in minutes in the direct care of this critically ill patient, excluding procedure time. ED Disposition Clinical Impression: Intermittent chest pain, Epigastric pain Alcohol intoxication Qualifiers: Complication of substance-induced condition: with unspecified complication Qualified Code(s): F10.929 - Alcohol use, unspecified with intoxication, unspecified Disposition: DC-01 TO HOME OR SELFCARE Is pt being admited?: No Condition: Stable Instructions: Abdominal Pain, Adult, Binge-Drinking Information, Adult, Nonspecific Chest Pain, Adult Additional Instructions: Please follow-up with a primary care physician. I am giving you a referral for a local primary care physician, Dr. Ni, and a primary care clinic, [facility]. I am sending your contact information over to the [facility], and someone should be contacting you shortly for close outpatient follow-up in regards to your intermittent chest pains. Just in case, I am giving you a referral for one of their pre press operator, Dr. Cuevas. I am giving you a referral for [facility] to follow-up regarding your abdominal pains. Please avoid any further alcohol abuse, avoid any illicit drug use, please avoid any excessive caffeine use and spicy foods. Return to the emergency department with any worsening of your symptoms, new or concerning symptoms not addressed during this current emergency department visit, or with any acute distress. Prescriptions: Multivitamin 1 each PO QDAY #30 tablet Famotidine [Pepcid] 20 mg PO BID #20 tablet Referrals: PRIMARY MD VICTORIANO [Primary Care Provider] - 2-3 Days JOSIE NI MD [Staff Physician] - 2-3 Days RICHARD CUEVAS MD [Staff Physician] - 2-3 Days [facility] [Provider Group] - 2-3 Days [facility] [Provider Group] - 2-3 Days Time of Disposition: 11:24
[2021-01-05 09:14] VITALS: BP 127/78
[2021-01-05] MEDS ORDERED: ONDANSETRON 4 MG/2 ML INJ IV ONE (11:33)
--- NOTE | 2021-01-06 13:15 | Electrocardiograph Report ---
[facility] Test Date: 2021-01-05 Test Time: 03:50:00 Pat Name: FOREIGN MARS Department: Room: Gender: M Substation Manager: : 1965 Requested By: ED DOC Order Number: [id number] Reading MD: Santosh Wallace Measurements Intervals [place] Rate: 90 P: 65 CT: 195 QRS: 67 QRSD: 102 T: 49 QT: 397 QTc: 486 Interpretive Statements Sinus rhythm Probable left ventricular hypertrophy Compared to ECG 11/25/2020 08:55:07 No significant changes Electronically Signed On 01-06-2021 13:15:15 EDT by Santosh Wallace
--- NOTE | 2021-01-06 13:17 | Electrocardiograph Report ---
[facility] Test Date: 2021-01-05 Test Time: 11:14:38 Pat Name: FOREIGN MARS Department: Room: Gender: M Alarm Installation Technician: RAIN : 1965 Requested By: YVES DICKSON Order Number: [id number] Reading MD: Santosh Wallace Measurements Intervals [place] Rate: 90 P: 47 [place]: 190 QRS: 39 QRSD: 97 T: 9 QT: 404 QTc: 493 Interpretive Statements Sinus rhythm Probable left atrial enlargement Compared to ECG 01/05/2021 03:50:00 No significant changes Electronically Signed On 01-06-2021 13:16:47 EDT by Santosh Wallace
== END 2021-01-05 12:00 | disposition home or self-care (01) ==
LOC: ED 02:24
DX: F10.929 Alcohol use, unspecified with intoxication, unspecified (principal); R10.13 Epigastric pain; R07.89 Other chest pain; I10 Essential (primary) hypertension; E11.9 Type 2 diabetes mellitus without complications; F20.0 Paranoid schizophrenia; F17.200 Nicotine dependence, unspecified, uncomplicated; Z98.890 Other specified postprocedural states; Z79.899 Other long term (current) drug therapy; Z88.0 Allergy status to penicillin
CPT/HCPCS: 36415; 71045; 80053; 84484; 85025; 93005; 96374; 96375; 99284; J2405; J2765; J7040; 80320; G0480

== ENCOUNTER 2021-01-09 13:17 | Emergency (ER) | payer MEDICAID ==
[2021-01-09 13:42] VITALS: BP 128/88
== END 2021-01-09 14:00 | disposition left against medical advice (07) ==
LOC: ED 13:17
DX: R07.89 Other chest pain (principal); Z53.21 Procedure and treatment not carried out due to patient leaving prior to being seen by health care provider

== ENCOUNTER 2021-01-09 17:22 | Emergency (ER) | payer MEDICAID ==
[2021-01-09 18:29] LABS: Basophils % (Auto) 0.3 % (0.0-1.8); Eosinophils % (Auto) 0.4 % (0.0-4.3); Hemoglobin 11.7 gm/dl (11.8-15.2); Lymphocytes # (Auto) 1.5 K/mm3 (1.2-5.4); Mean Corpuscular HGB Conc 31 % (32-34); Mean Corpuscular Volume 78 fl (84-94); Monocytes # (Auto) 0.5 K/mm3 (0.0-0.8); Monocytes % (Auto) 7.5 % (0.0-7.3); Platelet Count 140 K/mm3 (140-440)
[2021-01-09 18:30] LABS: Red Cell Distribution Width 22.4 % (13.2-15.2)
[2021-01-09 18:46] LABS: Alanine Aminotransferase 21 units/L (7-56); Albumin 4.1 g/dL (3.9-5); BUN/Creatinine Ratio 5; Blood Urea Nitrogen 4 mg/dL (9-20); Calcium 9.7 mg/dL (8.4-10.2); Hemolysis Index 9
[2021-01-09] MEDS: chlordiazePOXIDE 25 MG CAP PO PRN ×4 (19:58→23:15)
--- NOTE | 2021-01-09 20:14 | Emergency Department Report ---
HPI - General Chief Complaint: Psych Time Seen by Provider: 01/09/21 17:59 - HPI HPI: This is a 55-year-old -[place] male who presents to the emergency department with complaint of suicidal ideations and depression. The patient says that he plans to walk out in to traffic and walk in front of a large truck with hopes of ending his life. The patient says that he wants to do so because he "has nothing left to live for." The patient has a history of alcohol abuse and dependence. He says that he thinks he is withdrawing as he feels very naus eated. Patient has a history of paranoid schizophrenia. He does admit to some intermittent auditory and visual hallucinations. He denies any homicidal ideations. The patient says that he is compliant with his medications, but is unable to tell me what medications he takes. ED Past Medical Hx - Past Medical History Hx Hypertension: Yes Hx Congestive Heart Failure: No Hx Diabetes: Yes (Pt stated"borderline diabetes") Hx Renal Disease: No Hx Arthritis: No Hx Seizures: No Hx Psychiatric Treatment: Yes (Schizophrenia, Paranoid) Hx Asthma: No Hx COPD: No Hx Dementia: No Additional medical history: Umbillical hernia, colon polyps. colaspe lung/ CIRRHOIS, pancreatitis, ETOH abuse, esophagitis, hiatal hernia - Surgical History Hx Cholecystectomy: No Hx Appendectomy: No Additional Surgical History: ankle right surgery, Hernia - Social History Smoking Status: Never Smoker Substance Use Type: Alcohol - Medications Home Medications: Home Medications Medication Instructions Recorded Confirmed Last Taken Type Quetiapine Fumarate [SEROquel] 300 mg PO QHS 10/11/20 11/25/20 Unknown History FLUoxetine [PROzac] 20 mg PO QAM #30 capsule 10/16/20 11/25/20 Unknown Rx Multivitamin with Folic Acid [[facility] 400 mcg PO QDAY #30 tablet 11/18/20 11/25/20 Unknown Rx One Daily Essential Tablet] Pantoprazole [Protonix TAB] 40 mg PO QDAY #30 11/18/20 11/25/20 Unknown Rx Amlodipine Besylate [Norvasc] 5 mg PO 11/25/20 Unknown History Folic Acid [Folvite] 1 mg PO QDAY #30 tablet 11/28/20 Unknown Rx Thiamine [Vitamin B-1] 100 mg PO QDAY #30 tablet 11/28/20 Unknown Rx Famotidine [Pepcid] 20 mg PO BID #20 tablet 01/05/21 Unknown Rx Multivitamin 1 each PO QDAY #30 tablet 01/05/21 Unknown Rx ED Review of Systems ROS: Stated complaint: MENTAL HEALTH Other details as noted in HPI Comment: All other systems reviewed and negative Constitutional: denies: chills, fever Eyes: denies: eye pain, vision change ENT: denies: ear pain, throat pain Respiratory: denies: cough, shortness of breath Cardiovascular: denies: palpitations, edema Gastrointestinal: nausea. denies: abdominal pain, vomiting Genitourinary: denies: dysuria, discharge Musculoskeletal: denies: back pain, arthralgia Skin: denies: rash, lesions Neurological: denies: headache, weakness Psychiatric: depression, suicidal thoughts Physical Exam - Physical Exam Vital Signs: Vital Signs 01/09/21 17:24 Temperature 99.5 F Pulse Rate 117 H Respiratory 18 Rate Blood Pressure 138/86 O2 Sat by Pulse 94 Oximetry Physical Exam: GENERAL: The patient is well-developed well-nourished. HENT: Normocephalic. Atraumatic. Patient has moist mucous membranes. EYES: Extraocular motions are intact. NECK: Supple. Trachea is midline. CHEST/LUNGS: Clear to auscultation. There is no respiratory distress noted. HEART/CARDIOVASCULAR: Regular. There is no tachycardia. There is no murmur. ABDOMEN: Abdomen is soft, nontender. Patient has normal bowel sounds. SKIN: Skin is warm and dry. NEURO: The patient is awake, alert, and oriented, but the patient does appear intoxicated. The patient is cooperative. The patient has no focal neurologic deficits. Normal speech. MUSCULOSKELETAL: There is no tenderness or deformity. There is no limitation range of motion. ED Course Vital Signs 01/09/21 17:24 Temperature 99.5 F Pulse Rate 117 H Respiratory 18 Rate Blood Pressure 138/86 O2 Sat by Pulse 94 Oximetry ED Medical Decision Making - Lab Data Result diagrams: 01/09/21 18:08 01/09/21 18:08 Lab Results 01/09/21 01/09/21 01/09/21 Range/Units 18:08 18:08 18:08 WBC 6.7 (4.5-11.0) K/mm3 RBC 4.90 (3.65-5.03) M/mm3 Hgb 11.7 L (11.8-15.2) gm/dl Hct 38.0 (35.5-45.6) % MCV 78 L (84-94) fl MCH 24 L (28-32) pg MCHC 31 L (32-34) % RDW 22.4 H (13.2-15.2) % Plt Count 140 (140-440) K/mm3 Lymph % (Auto) 23.0 (13.4-35.0) % [place] % (Auto) 7.5 H (0.0-7.3) % Eos % (Auto) 0.4 (0.0-4.3) % Baso % (Auto) 0.3 (0.0-1.8) % Lymph # (Auto) 1.5 (1.2-5.4) K/mm3 [place] # (Auto) 0.5 (0.0-0.8) K/mm3 Eos # (Auto) 0.0 (0.0-0.4) K/mm3 Baso # (Auto) 0.0 (0.0-0.1) K/mm3 Seg Neutrophils % 68.8 (40.0-70.0) % Seg Neutrophils # 4.6 (1.8-7.7) K/mm3 Sodium 137 (137-145) mmol/L Potassium 3.8 (3.6-5.0) mmol/L Chloride 100.1 (98-107) mmol/L Carbon Dioxide 24 (22-30) mmol/L Anion Gap 17 mmol/L BUN 4 L (9-20) mg/dL Creatinine 0.8 (0.8-1.3) mg/dL Estimated GFR > 60 ml/min BUN/Creatinine Ratio 5 % Glucose 91 (75-100) mg/dL Calcium 9.7 (8.4-10.2) mg/dL Total Bilirubin 0.30 (0.1-1.2) mg/dL AST 28 (5-40) units/L ALT 21 (7-56) units/L Alkaline Phosphatase 110 (35-129) units/L Total Protein 7.3 (6.3-8.2) g/dL Albumin 4.1 (3.9-5) g/dL Albumin/Globulin Ratio 1.3 % Plasma/Serum Alcohol 0.21 H (0-0.07) % - Medical Decision Making This patient presents to the emergency department with a complaint of some depression and suicidal ideations with a plan to run out in front of a truck in traffic to end his life. For this reason the patient has been made a 1013 and placed on an ED hold. The patient's labs have been mostly unremarkable thus far except for a blood alcohol level of 0.21. The patient does have a history of alcohol abuse and dependence and has been placed on CIWA protocol. We are still waiting for a urine sample for urinalysis and UDS. However, thus far, I have not found any lab abnormalities or physical examination concerns that would preclude this patient from psychiatric treatment. If the patient has a urinary tract infection, antibiotics will be added. The patient will be seen by the psychiatric team for further disposition. We will continue to monitor this patient during his ED course. Critical Care Time: No Critical care attestation.: If time is entered above; I have spent that time in minutes in the direct care of this critically ill patient, excluding procedure time. ED Disposition Clinical Impression: Suicidal ideations Alcohol intoxication Qualifiers: Complication of substance-induced condition: with unspecified complication Qualified Code(s): F10.929 - Alcohol use, unspecified with intoxication, un specified Disposition: DC-01 TO HOME OR SELFCARE Is pt being admited?: No Referrals: PRIMARY CARE, [Primary Care Provider] - 3-5 Days Time of Disposition: 20:16
[2021-01-09] MEDS ORDERED: ONDANSETRON 4 MG ODT TAB ONE (23:33)
[2021-01-09] MEDS: ONDANSETRON 4 MG ODT TAB PO ONE (23:37)
[2021-01-10] MEDS: ONDANSETRON 4 MG ODT TAB PO ONE (03:00)
[2021-01-10] MEDS ORDERED: ONDANSETRON 4 MG ODT TAB ONE (03:03)
--- NOTE | 2021-01-10 10:22 | Event Note ---
Date: 01/10/21 Patient is 55 years old presented to the ER for suicidal ideation and depression. Patient is resting well in no acute distress. No overnight issues. Vital signs stable. Labs reviewed and is unremarkable except for alcohol level is 0.21 Urine is still pending. Waiting for inpatient psychiatric placement.
--- NOTE | 2021-01-10 11:05 | Consultation ---
History of Present Illness - Reason for Consult Consult date: 01/10/21 Reason for consult: Depression - History of Present Psychiatric Illness Per ED Note: This is a 55-year-old -[place] male who presents to the emergency department with complaint of suicidal ideations and depression. The patient says that he plans to walk out in to traffic and walk in front of a large truck with hopes of ending his life. The patient says that he wants to do so because he "has nothing left to live for." The patient has a history of alcohol abuse and dependence. He says that he thinks he is withdrawing as he feels very nauseated. Patient has a history of paranoid schizophrenia. He does admit to some intermittent auditory and visual hallucinations. He denies any homicidal ideations. The patient says that he is compliant with his medica tions, but is unable to tell me what medications he takes. Kang Cruz is a 55 year old male with a history of Schizophrenia, Depression and Alcohol use disorder who presents to the Ed for worsening depression. In my interview with patient, he reports he is not doing well. Patient reports he was on Zyprexa which he states he ran out of for a while. He reports he has been drinking since age 16;he is unable to states how much alcohol he consumes but states it varies. He was unable to states any periods of sobriety. He presents with moderate tremors. The patient reports having cravings for alcohol. He denies any current suicidal thoughts and denies hallucinations. Patient is marisa eless. PAST PSYCHIATRIC HISTORY: Diagnoses: schizophrenia, Depression, Alcohol use disorder Suicide attempts or Self-harm behavior: Denied Prior psychiatric hospitalizations: yes Substance Abuse history: Alcohol Previous psychiatric medications tried: Zyprexa Outpatient treatment: yes PAST MEDICAL HISTORY: n/a Family Psychiatric History: None reported or documented SOCIAL HISTORY Marital Status: single Living Arrangements: Homeless Employment Status: unemployed Access to guns/weapons: n/a Education: GED History of Abuse: n/a Legal History: n/a REVIEW OF SYSTEMS Constitutional: Negative for weight loss ENT: Negative for stridor Respiratory: Negative for cough or hemoptysis All other systems reviewed and are negative MENTAL STATUS EXAMINATION General Appearance and Behavior: Age appropriate, good hygiene, wearing appropriate clothes, uncooperative polite with questioning. Cooperation: cooperative Psychomotor Behavior: Psychomotor agitation Mood: " I'm not doing too good" Affect and affective range: congruent to stated mood Thought Process: compulsive Thought Content: Denies suicidal Speech: Normal volume, Regular rate and rhythm Intellectual Functioning: Average Suicidal Ideation: Denied Homicidal Ideation: Denied hallucination: Denies Impulse Control: impaired Insight and Judgment: limited Memory: memory impaired Attention:Distractible Orientation: Alert and oriented Diagnoses:Alcohol use Disorder, Moderate- F10.20 Current Visit: Yes Status: Acute RECOMMENDATIONS Continue 1013 Continue with [facility] protocol Start Trazodone 50mg po qhs Start Vistaril 25mg po BID Risks, benefits and alternatives of medications discussed with the patient, questions answered and consent obtained from patient. PSYCHOTHERAPY: Supportive psychotherapy provided MEDICAL: Per primary team DELIRIUM PRECAUTIONS: Please re-orient patient frequently, keep lights on during the day, and minimize benzodiazepines and opiates as these medications could worsen patient's confusion. PHARMACY INFORMATICS MANAGER: Per medical team DISPOSITION: Recommend acute inpatient psychiatric hospitalization at this time FOLLOW-UP: Will sign off Thank you for the consult. Please contact with any questions and/or concerns. Medications and Allergies Allergies Allergy/AdvReac Type Severity Reaction Status Date / Time Penicillins Allergy Hives Verified 01/09/21 17:23 Home Medications Medication Instructions Recorded Confirmed Last Taken Type Quetiapine Fumarate [SEROquel] 300 mg PO QHS 10/11/20 11/25/20 Unknown History FLUoxetine [PROzac] 20 mg PO QAM #30 capsule 10/16/20 11/25/20 Unknown Rx Multivitamin with Folic Acid [[facility]vs 400 mcg PO QDAY #30 tablet 11/18/20 11/25/20 Unknown Rx One Daily Essential Tablet] Pantoprazole [Protonix TAB] 40 mg PO QDAY #30 11/18/20 11/25/20 Unknown Rx Amlodipine Besylate [Norvasc] 5 mg PO 11/25/20 Unknown History Folic Acid [Folvite] 1 mg PO QDAY #30 tablet 11/28/20 Unknown Rx Thiamine [Vitamin B-1] 100 mg PO QDAY #30 tablet 11/28/20 Unknown Rx Famotidine [Pepcid] 20 mg PO BID #20 tablet 01/05/21 Unknown Rx Multivitamin 1 each PO QDAY #30 tablet 01/05/21 Unknown Rx Active Meds: Active Medications Chlordiazepoxide HCl (Chlordiazepoxide 25 Mg Cap) 50 mg PO Q1HR PRN PRN Reason: CIWA-Maurice 8-15 Last Admin: 01/09/21 21:00 Dose: 50 mg Documented by: Chlordiazepoxide HCl (Chlordiazepoxide 25 Mg Cap) 100 mg PO Q1HR PRN PRN Reason: CIWA-Maurice 16-25 Last Admin: 01/09/21 23:15 Dose: 100 mg Documented by: Mental Status Exam - Vital signs Last Vital Signs Temp 98.0 F 01/10/21 08:31 Pulse 90 01/10/21 08:31 Resp 18 01/10/21 08:31 BP 130/90 01/10/21 08:31 Pulse Ox 97 01/10/21 08:31 Results Result Diagrams: 01/09/21 18:08 01/09/21 18:08 Abnormal lab results 01/09/21 01/09/21 01/09/21 Range/Units 18:08 18:08 18:08 Hgb 11.7 L (11.8-15.2) gm/dl MCV 78 L (84-94) fl MCH 24 L (28-32) pg MCHC 31 L (32-34) % RDW 22.4 H (13.2-15.2) % [place] % (Auto) 7.5 H (0.0-7.3) % BUN 4 L (9-20) mg/dL Plasma/Serum Alcohol 0.21 H (0-0.07) % All other labs normal.
[2021-01-10] MEDS: hydrOXYzine PAMOATE 25 MG CAP PO SCH (16:10)
[2021-01-10] MEDS ORDERED: traZODone 50 MG TAB PO SCH (22:00)
[2021-01-11] MEDS: hydrOXYzine PAMOATE 25 MG CAP PO SCH ×2 (00:04→11:29)
--- NOTE | 2021-01-11 09:26 | Progress Note ---
Subjective - Reason for Consult Consult date: 01/11/21 Reason for consult: alcohol - Chief Complaint Chief complaint: Per Nurse Note: 0700 Received report from ARON [place], pt resting quietly on recliner, resp even and non labored, no acute distress noted, easily aroused, no complaints of voiced, able to make needs known, ambulates as needed to restroom without difficulty. The patient was seen today, he is calm and cooperative. He is a/o x 3. He immediately says to me "I was detoxing yesterday off alcohol. I'm not suicidal, homicidal and I'm not hearing voices." He says "there's nothing wrong with me. I'm fine now." The patient then says "my detox is over. I'm ready to go home." REVIEW OF SYSTEMS Constitutional: Negative for weight loss ENT: Negative for stridor Respiratory: Negative for cough or hemoptysis All other systems reviewed and are negative MENTAL STATUS EXAMINATION General Appearance and Behavior: Age appropriate, good hygiene, wearing appropriate clothes, cooperative polite with questioning. Cooperation: cooperative Psychomotor Behavior: Psychomotor agitation Mood: "I'm fine" Affect and affective range: congruent to stated mood Thought Process: compulsive Thought Content: None Speech: Normal volume, Regular rate and rhythm Suicidal Ideation: Denied Homicidal Ideation: Denied hallucination: Denies Delusions: None elicited Impulse Control: impaired Insight and Judgment: limited Memory: Limited Attention: Unimpaired Orientation: Alert and oriented Diagnoses: Alcohol use Disorder, Moderate- F10.2 RECOMMENDATIONS D/c 1013 Continue previously prescribed meds Risks, benefits and alternatives of medications discussed with the patient, questions answered and consent obtained from patient. PSYCHOTHERAPY: Supportive psychotherapy provided MEDICAL: Per primary team DELIRIUM PRECAUTIONS: Please re-orient patient frequently, keep lights on during the day, and minimize benzodiazepines and opiates as these medications could worsen patient's confusion. GRADUATION COACH: Per medical team DISPOSITION: Do not recommend acute inpatient psychiatric hospitalization at this time. The patient understands that he is to seek immediate assistance if SI/HI or feelings of endangerment are to arise. He is to abstain from all alcohol use The tomato pulper operator to give him outpatient resources Follow up in 7 to 14 days with psych upon discharge FOLLOW-UP: Will sign off Thank you for the consult. Please contact with any questions and/or concerns. Case staffed with Dr. Ulrich Mental Status Exam - Vital signs Last Vital Signs Temp 98.0 F 01/11/21 00:25 Pulse 76 01/11/21 00:25 Resp 18 01/11/21 00:25 BP 120/71 01/11/21 00:25 Pulse Ox 98 01/11/21 00:25
--- NOTE | 2021-01-11 11:49 | Event Note ---
Date: 01/11/21 This patient was originally made a 1013 secondary to some suicidal ideations he was expressing. Patient also came in with an alcohol level of 0.21. He was started on medications and seen by the psychiatric team. He was seen again this morning by the psychiatric nurse practitioner. He currently denies any suicidal ideations. He denies any homicidal ideations or any hallucinations. The patient is AAO x3 and has a normal decision-making capacity. He is calm and appropriate. I saw this patient as well and he once again denies any suicidal ideations. Psychiatry has rescinded his 1013 and given outpatient referrals for behavioral health.
[2021-01-11 11:55] VITALS: BP 112/84
== END 2021-01-11 12:15 | disposition home or self-care (01) ==
LOC: ED 17:22 → EEVIPCON 17:22 → ED 01-11 12:15
DX: R45.851 Suicidal ideations (principal); Z20.822 Contact with and (suspected) exposure to COVID-19; F10.129 Alcohol abuse with intoxication, unspecified; I10 Essential (primary) hypertension; E11.9 Type 2 diabetes mellitus without complications; F20.9 Schizophrenia, unspecified; Z98.890 Other specified postprocedural states; Z79.899 Other long term (current) drug therapy; Z88.0 Allergy status to penicillin
CPT/HCPCS: 36415; 80053; 85025; 99284; Q0177; U0003; 80320; G0480; Q0162

== ENCOUNTER 2021-01-21 22:06 | Inpatient (IN) | payer MEDICAID ==
--- NOTE | 2021-01-21 23:13 | XRay Report ---
ABDOMEN 2 VIEWS INDICATION / CLINICAL INFORMATION: Abdominal Pain. COMPARISON: 11/29/2020 FINDINGS: TUBES / LINES: None. BOWEL GAS PATTERN: No significant abnormality. FREE AIR / EXTRALUMINAL GAS: None seen. ADDITIONAL FINDINGS: No significant additional findings. CHEST: Visualized chest shows no significant abnormality. IMPRESSION: No acute abnormality. Signer Name: Alex Escamilla MD Signed: 01/21/2021 11:08 PM Workstation Name: [id number]
[2021-01-21 23:47] LABS: BUN/Creatinine Ratio 8; Blood Urea Nitrogen 6 mg/dL (9-20); Calcium 9.4 mg/dL (8.4-10.2); Hemolysis Index 0
[2021-01-21 23:49] LABS: Basophils % (Auto) 0.5 % (0.0-1.8); Eosinophils # (Auto) 0.1 K/mm3 (0.0-0.4); Eosinophils % (Auto) 0.9 % (0.0-4.3); Hematocrit 38.4 % (35.5-45.6); Hemoglobin 12.2 gm/dl (11.8-15.2); Lymphocytes # (Auto) 1.9 K/mm3 (1.2-5.4); Lymphocytes % (Auto) 21.5 % (13.4-35.0); Mean Corpuscular HGB Conc 32 % (32-34); Mean Corpuscular Volume 76 fl (84-94); Monocytes # (Auto) 0.9 K/mm3 (0.0-0.8); Monocytes % (Auto) 10.1 % (0.0-7.3); Platelet Count 416 K/mm3 (140-440); Red Blood Count 5.05 M/mm3 (3.65-5.03)
[2021-01-21 23:55] LABS: Red Cell Distribution Width 21.1 % (13.2-15.2)
[2021-01-22] MEDS ORDERED: chlordiazePOXIDE 25 MG CAP PO PRN (06:46)
[2021-01-22] MEDS ORDERED: LORazepam 2 MG/ML VIAL IV PRN (06:46)
[2021-01-22] MEDS ORDERED: LACTATED RINGERS 1,000 ML IV ONE (06:48)
[2021-01-22] MEDS ORDERED: DEXTROSE 50% IN WATER (25GM) 50 ML VIAL IV PRN (06:48)
--- NOTE | 2021-01-22 06:50 | Emergency Department Report ---
ED General Adult HPI - General Chief complaint: Abdominal Pain Stated complaint: CHEST PAIN Time Seen by Provider: 01/22/21 06:08 Source: patient, RN notes reviewed, old records reviewed Mode of arrival: Ambulatory Limitations: No Limitations - History of Present Illness Initial comments: The patient is a 55-year-old gentleman. His past medical history includes paranoid schizophrenia, alcohol dependence, pancreatitis, esophagitis, hypertension, cirrhosis, anemia, GERD, admitted to this hospital November 2020 for sepsis secondary to pneumonia, and toxic metabolic encephalopathy, as well as rhabdomyolysis. The patient presents to the ER today with a complaint of chest pain, abdominal pain, coughing up blood, vomiting blood, black stool, and experiencing hallucinations. The patient states he also feels like he might be having alcohol withdrawal. The patient is not homicidal or suicidal. The patient does not have access to guns or firearms. The patient has a boot on his left lower extremity secondary to falling and twisting his ankle a few days ago. He states he did not break any bones. He does not think he hit his head. The patient's chest pain is poorly characterized, he thinks it is central, but is not sure, he does not believe it radiates anywhere. He denies diaphoresis. He denies exertional shortness of breath. The patient is also asking to eat and drink at this time. He indicates that he is having simultaneous abdominal and chest pain. The abdominal pain is poorly characterized. He does not describe exacerbating or relieving factors. -: hour(s), days(s) Location: chest, abdomen Improves with: other Worsens with: other Associated Symptoms: other Treatments Prior to Arrival: other - Related Data Home Medications Medication Instructions Recorded Confirmed Last Taken Quetiapine Fumarate [SEROquel] 300 mg PO QHS 10/11/20 11/25/20 Unknown Amlodipine Besylate [Norvasc] 5 mg PO 11/25/20 Unknown Previous Rx's Medication Instructions Recorded Last Taken Type FLUoxetine [PROzac] 20 mg PO QAM #30 capsule 10/16/20 Unknown Rx Multivitamin with Folic Acid [[facility] 400 mcg PO QDAY #30 tablet 11/18/20 Unknown Rx One Daily Essential Tablet] Pantoprazole [Protonix TAB] 40 mg PO QDAY #30 11/18/20 Unknown Rx Folic Acid [Folvite] 1 mg PO QDAY #30 tablet 11/28/20 Unknown Rx Thiamine [Vitamin B-1] 100 mg PO QDAY #30 tablet 11/28/20 Unknown Rx Famotidine [Pepcid] 20 mg PO BID #20 tablet 01/05/21 Unknown Rx Multivitamin 1 each PO QDAY #30 tablet 01/05/21 Unknown Rx Allergies Allergy/AdvReac Type Severity Reaction Status Date / Time Penicillins Allergy Hives Verified 01/09/21 17:23 ED Review of Systems ROS: Stated complaint: CHEST PAIN Other details as noted in HPI Constitutional: other (Denies loss of taste and smell). denies: fever, malaise, weakness ENT: denies: dental pain Respiratory: cough, other (Hemoptysis) Cardiovascular: chest pain Gastrointestinal: abdominal pain, nausea, vomiting, other (Patient reports dark stool, and vomiting blood) Genitourinary: denies: dysuria Musculoskeletal: arthralgia, myalgia Neurological: denies: headache Psychiatric: auditory hallucinations, visual hallucinations. denies: suicidal thoughts ED Past Medical Hx - Past Medical History Previous Medical History?: Yes Hx Hypertension: Yes Hx Congestive Heart Failure: No Hx Diabetes: Yes (Pt stated"borderline diabetes") Hx Renal Disease: No Hx Arthritis: No Hx Seizures: No Hx Psychiatric Treatment: Yes (Schizophrenia, Paranoid) Hx Asthma: No Hx COPD: No Hx Dementia: No Additional medical history: Umbillical hernia, colon polyps. colaspe lung/ CIRRHOIS, pancreatitis, ETOH abuse, esophagitis, hiatal hernia - Surgical History Past Surgical History?: Yes Hx Cholecystectomy: No Hx Appendectomy: No Additional Surgical History: ankle right surgery, Hernia - Social History Smoking Status: Never Smoker Substance Use Type: Alcohol - Medications Home Medications: Home Medications Medication Instructions Recorded Confirmed Last Taken Type Quetiapine Fumarate [SEROquel] 300 mg PO QHS 10/11/20 11/25/20 Unknown History FLUoxetine [PROzac] 20 mg PO QAM #30 capsule 10/16/20 11/25/20 Unknown Rx Multivitamin with Folic Acid [[facility] 400 mcg PO QDAY #30 tablet 11/18/20 11/25/20 Unknown Rx One Daily Essential Tablet] Pantoprazole [Protonix TAB] 40 mg PO QDAY #30 11/18/20 11/25/20 Unknown Rx Amlodipine Besylate [Norvasc] 5 mg PO 11/25/20 Unknown History Folic Acid [Folvite] 1 mg PO QDAY #30 tablet 11/28/20 Unknown Rx Thiamine [Vitamin B-1] 100 mg PO QDAY #30 tablet 11/28/20 Unknown Rx Famotidine [Pepcid] 20 mg PO BID #20 tablet 01/05/21 Unknown Rx Multivitamin 1 each PO QDAY #30 tablet 01/05/21 Unknown Rx ED Physical Exam - General Limitations: Other (The patient is disorganized. The patient is a poor histor chang.) General appearance: alert, in no apparent distress, obese - Head Head exam: Present: atraumatic, normocephalic - Eye Eye exam: Present: normal appearance, EOMI. Absent: nystagmus - ENT ENT exam: Present: mucous membranes dry, normal external ear exam, other (Minimal tongue fasciculations noted) - Neck Neck exam: Present: normal inspection, full ROM. Absent: tenderness, meningismus - Respiratory Respiratory exam: Present: decreased breath sounds. Absent: respiratory d istress, wheezes, rales, rhonchi, stridor - Cardiovascular Cardiovascular Exam: Present: regular rate, normal rhythm, normal heart sounds. Absent: bradycardia, tachycardia, irregular rhythm, systolic murmur, diastolic murmur, rubs, gallop - GI/Abdominal GI/Abdominal exam: Present: soft, distended. Absent: tenderness, guarding, rebound, rigid, pulsatile mass - Rectal Rectal exam: Present: normal inspection, normal rectal tone, heme (-) stool, other (Chaperoned by Arlene Mims). Absent: black stool, bloody stool, hemorrhoids, mass, tenderness - Extremities Exam Extremities exam: Present: normal inspection, full ROM, tenderness (There is left ankle tenderness. There is a boot on the left ankle.), other (2+ pulses noted in the bilateral upper and lower extremities. There is no palpable cord. negative Homans sign. Muscular compartments are soft. The pelvis is stable. There is left proximal ankle tenderness). Absent: calf tenderness - Back Exam Back exam: Present: normal inspection. Absent: tenderness, CVA tenderness (R), CVA tenderness (L), paraspinal tenderness, vertebral tenderness - Neurological Exam Neurological exam: Present: alert, other (No facial droop. Tongue midline. Extraocular movements intact bilaterally. Facial sensation intact to light touch in V1, V2, V3 distribution bilaterally. 5 and a 5 strength in 4 extremities. Sensation intact to light touch in 4 extremities.) - Psychiatric Psychiatric exam: Present: other (Hallucination). Absent: homicidal ideation, suicidal ideation - Skin Skin exam: Present: warm, dry, intact, normal color. Absent: rash ED Course Vital Signs 01/21/21 01/22/21 22:36 06:30 Temperature 98.6 F Pulse Rate 106 H 88 Respiratory 17 15 Rate Blood Pressure 143/96 132/91 O2 Sat by Pulse 100 Oximetry - Reevaluation(s) Reevaluation #1: 01/22/21 07:51 Differential diagnosis, including but not limited to: GERD, gastritis, hiatal hernia, pneumonia, coronary artery disease, esophagitis, pulmonary embolism, alcohol dependence, obstruction, colitis, diverticulitis, enteritis, psychosis, medical clearance for psychiatric evaluation, behavioral health screening examination, left ankle sprain, strain Assessment and plan: 55-year-old gentleman with multiple complaints. Complaint #1, chest pain/coughing up blood/vomiting blood: Obtain x-ray of the chest. Obtain troponin x2, and EKG x2. Treat symptoms. Send D-dimer to risk stratify for pulmonary embolism. Assuming negative troponin which we ant icipate, low risk for major adverse cardiac event as per heart score. Of note, patient resting comfortably in stretcher, have not personally witnessed any vomiting blood, defecation of blood, or coughing of blood. Rectal exam negative for bleeding and black stool. Complaints #2, abdominal pain: Treat symptoms. Rectal exam negative. Obtain CT scan of the abdomen pelvis. Obtain appropriate laboratory studies. Obtain urinalysis. Reassess. Complaints #3, hallucinations. Place patient on alcohol withdrawal protocol. Obtain appropriate psychiatric laboratory studies. Obtain psychiatric co nsultation. Reassess after initial data points. Of note, this patient has been resting comfortably in stretcher for hours, he does not appear to be in any acute distress, his tachycardia has resolved, I suspect that there may be a component of secondary gain and/or malingering. 01/22/21 10:09 CT scan of the brain negative for acute findings. Repeat hemoglobin, hematocrit diminished when compared to prior. CT scan abdomen pelvis negative for acute findings. CT scan chest, nuclear medicine study of chest (we are unable to obtain 20-gauge IV access, and therefore, obtained 22-gauge IV access, and CT scan of the chest with IV contrast, however, not angiogram protocol) suggest pulmonary embolism without evidence of right heart strain. Contacted gastroenterology on-call, Dr. Zhu. Have discussed patient's history, physical, laboratory studies, and clinical concern. Unfractionated heparin is recommended. Once daily Protonix is recommended. His group will follow in consultation. Hospital physician will be paged to arrange admission for admission. The patient is not medically cleared at this time for psychiatric disposition, but psychiatric consultation and recommendations are appreciated. Left ankle x-ray reviewed and appreciated, we will continue left leg splint. This injury in and of itself would be appropriate for discharge with outpatient follow-up. An emergent orthopedic consultation is not necessary or indicated at this time. Repeat EKG is unchanged from prior. Aspirin will be held given evidence of GI bleed. 01/22/21 10:12 01/22/21 10:17 Dr Btaista to admit to [facility] ED Medical Decision Making - Lab Data Result diagrams: 01/22/21 07:47 01/21/21 23:01 Vital Signs 01/21/21 01/22/21 22:36 06:30 Temperature 98.6 F Pulse Rate 106 H 88 Respiratory 17 15 Rate Blood Pressure 143/96 132/91 O2 Sat by Pulse 100 Oximetry Lab Results 01/21/21 01/21/21 Range/Units 23:01 23:01 WBC 8.9 (4.5-11.0) K/mm3 RBC 5.05 H (3.65-5.03) M/mm3 Hgb 12.2 (11.8-15.2) gm/dl Hct 38.4 (35.5-45.6) % MCV 76 L (84-94) fl MCH 24 L (28-32) pg MCHC 32 (32-34) % RDW 21.1 H (13.2-15.2) % Plt Count 416 (140-440) K/mm3 Lymph % (Auto) 21.5 (13.4-35.0) % [place] % (Auto) 10.1 H (0.0-7.3) % Eos % (Auto) 0.9 (0.0-4.3) % Baso % (Auto) 0.5 (0.0-1.8) % Lymph # (Auto) 1.9 (1.2-5.4) K/mm3 [place] # (Auto) 0.9 H (0.0-0.8) K/mm3 Eos # (Auto) 0.1 (0.0-0.4) K/mm3 Baso # (Auto) 0.0 (0.0-0.1) K/mm3 Seg Neutrophils % 67.0 (40.0-70.0) % Seg Neutrophils # 6.0 (1.8-7.7) K/mm3 Sodium 139 (137-145) mmol/L Potassium 3.7 (3.6-5.0) mmol/L Chloride 96.7 L (98-107) mmol/L Carbon Dioxide 28 (22-30) mmol/L Anion Gap 18 mmol/L BUN 6 L (9-20) mg/dL Creatinine 0.8 (0.8-1.3) mg/dL Estimated GFR > 60 ml/min BUN/Creatinine Ratio 8 % Glucose 101 H (75-100) mg/dL Calcium 9.4 (8.4-10.2) mg/dL Amylase 75 (27-131) units/L Lipase 13 (13-60) units/L - EKG Data -: EKG Interpreted by Mi EKG shows normal: sinus rhythm Rate: normal - EKG Data 01/22/21 07:54 EKG #1 is interpreted at 07: 40 a.m. Sinus rhythm, 86 bpm. Normal axis, normal P wave axis, left ventricular hypertrophy, QTC 488 ms, with motion artifact. This is an abnormal EKG. This is not a STEMI. This EKG appears to be grossly unchanged when compared to prior EKG from 01/05/2021 - Radiology Data Radiology results: pending, report reviewed, image reviewed [facility] [address] [place] [address] XRay Report Signed Patient: FOREIGN MARS MR#: [id number] : 1965 Acct:[id number] Age/Sex: 55 / M ADM Date: 01/21/21 Loc: ED Attending Dr: Ordering Physician: ED MD KURT Date of Service: 01/21/21 Procedure(s): XR abdomen 2V Accession Number(s): [id number] cc: ED DOCMD Fluoro Time In Minutes: ABDOMEN 2 VIEWS INDICATION / CLINICAL INFORMATION: Abdominal Pain. COMPARISON: FINDINGS: TUBES / LINES: None. BOWEL GAS PATTERN: No significant abnormality. FREE AIR / EXTRALUMINAL GAS: None seen. ADDITIONAL FINDINGS: No significant additional findings. CHEST: Visualized chest shows no significant abnormality. IMPRESSION: No acute abnormality. Signer Name: Alex Escamilla MD Signed: 01/21/2021 11:08 PM Workstation Name: [id number] Transcribed By: JS Dictated By: ALEX ESCAMILLA MD Electronically Authenticated By: ALEX ESCAMILLA MD Signed Date/Time: 01/21/212307 DD/ 06 NUCLEAR MEDICINE PERFUSION LUNG SCAN INDICATION / CLINICAL INFORMATION: cp + d dimser. TECHNIQUE: 5.5 mCi of Tc-99m MAA were given by IV. COMPARISON: CT dated same day. FINDINGS: PERFUSION: Bilateral segmental perfusion defects ADDITIONAL FINDINGS: None. IMPRESSION: 1. Pulmonary embolism is present when correlated to prior CT chest. Signer Name: Edward Woodruff MD Signed: 01/22/2021 8:53 AM Workstation Name: [id number] I spoke to the physician Dr. Garcia. In the body it was mentioned that the exam was not protocoled to evaluate for pulmonary embolism but there were bilateral filling defects in the pulmonary arteries and a nuclear medicine perfusion scan was being obtained. When correlating the two, there are extensive pulmonary emboli in the distal pulmonary arteries. Central pulmonary artery enlargement can be seen in the setting of pulmonary arterial hypertension. But RV to LV ratio is normal without CT evidence of right heart strain. Signer Name: Edward Woodruff MD Signed: 01/22/2021 9:00 AM Workstation Name: [id number] CT abdomen pelvis w con, CT chest w con INDICATION / CLINICAL INFORMATION: Pt complains of acute abd pain and lung pain, ETOH ABUSE OMNI 300 100 ML. TECHNIQUE: Axial CT images were obtained through the chest, abdomen and pelvis. All CT scans at this location are performed using CT dose reduction for ALARA by means of automated exposure control. COMPARISON: None available. FINDINGS: CHEST: Lungs: Lungs are clear No pleural effusion. No pneumothorax. Heart: No significant abnormality. Mediastinum: Moderate sized hiatal hernia. Vasculature: Central pulmonary artery enlargement which can suggest pulmonary arterial hypertension. Please note this protocol was not protocoled to evaluate for pulmonary embolism. No aortic aneurysm. No dissection. ADDITIONAL FINDINGS: None. ABDOMEN and PELVIS: Liver: Mild hypoattenuation of the liver. Biliary: No significant abnormality. Spleen: No significant abnormality. Unenlarged. Pancreas: No significant abnormality. Adrenals: No significant abnormality. Kidneys: No significant abnormality. Lymphatics: No lymphadenopathy. Vasculature: No significant abnormality. Bowel: No significant abnormality. Normal appendix. Pelvis: No significant abnormality. Osseous Structures: No aggressive osseous lesion. Facet arthropathy with grade 1 degenerative listhesis of L4 on L5 and minimal retrolisthesis of L3 on L4. Additional Findings: Lobulated upper fat-containing ventral abdominal hernia without complicating features. IMPRESSION: 1. No acute abnormality of the chest, abdomen or pelvis. 2. Diffuse hepatic steatosis. Signer Name: Edward Woodruff MD Signed: 01/22/2021 8:04 AM Workstation Name: [id number] LEFT ANKLE 2 VIEW(S) INDICATION / CLINICAL INFORMATION: left ankle pain COMPARISON: None available. FINDINGS: BONES / JOINT(S): There is a comminuted obliquely oriented fracture of the distal fibula above the distal tibiofibular joint. No dislocation is seen. SOFT TISSUES: There is soft tissue swelling in the left lower leg and ankle. ADDITIONAL FINDINGS: None. Signer Name: Duc Abdullahi MD Signed: 01/22/2021 8:07 AM Workstation Name: [id number] CT head/brain wo con INDICATION: E.T.O.H. dependence, hallucinations. TECHNIQUE: Routine CT head. All CT scans at this location are performed using CT dose reduction for ALARA by means of automated exposure control. COMPARISON: 11/25/2020. FINDINGS: Intracranial: Faye-white matter differentiation is maintained. No intracranial hemorrhage. No extra axial collection. No hydrocephalus. No herniation. Sinuses: Remote nasal bone fractures. Paranasal sinuses and mastoid air cells are essentially clear. Orbits: Globes are intact. Calvarium: No acute fracture. IMPRESSION: 1. No acute intracranial abnormality. Signer Name: Edward Woodruff MD Signed: 01/22/2021 7:58 AM Workstation Name: [id number] Critical Care Time: Yes Critical care time in (mins) excluding proc time.: 45 Critical care attestation.: If time is entered above; I have spent that time in minutes in the direct care of this critically ill patient, excluding procedure time. Critical Care Time: Critical care time includes multiple bedside reevaluations, interpretation of laboratory studies, radiology studies, review of old medical records, and discussion with multiple consulting services, including hospital medicine, GI, radiology, to manage a psychiatric patient with psychosis, and multiple acute medical issues, including alcohol withdrawal, GI bleed, and acute pulmonary embolism. This does not include procedure time. ED Disposition Clinical Impression: Acute pulmonary embolism, Alcohol withdrawal, Acute abdominal pain, Acute chest pain, Hallucinations, Fracture of distal end of fibula, GI bleed, Alcohol dependence Disposition: OP ADMIT IP TO THIS HOSP Is pt being admited?: Yes Does the pt Need Aspirin: No (Aspirin held because of evidence of GI bleed.) Condition: Good Instructions: Chest Pain (ED) Referrals: PRIMARY CARE,MD [Primary Care Provider] - 3-5 Days Heart Score - HEART Score History: Slightly suspicious EKG: Non-specific Age: 45-65 Risk factors: 1-2 risk factors Troponin: < normal limit HEART Score: 3 - EKG Read Time Time EKG Completed: 07:40 EKG Read Time: 07:41 - Critical Actions Critical Actions: 0-3 pts:0.9-1.7%risk of adverse cardiac event.Candidate for discharge
[2021-01-22] MEDS ORDERED: THIAMINE 100 MG, FOLIC ACID 1 MG, MULTIPLE VITAMIN INJ, ADULT 10 ML in SODIUM CHLORIDE ... IV ONE (07:48)
[2021-01-22] MEDS ORDERED: PANTOPRAZOLE 40 MG INJ IV ONE ×2 (07:56→10:02)
[2021-01-22] MEDS ORDERED: ONDANSETRON 4 MG/2 ML INJ IV ONE (07:56)
[2021-01-22 08:13] LABS: Hematocrit 33.6 % (35.5-45.6); Hemoglobin 10.9 gm/dl (11.8-15.2)
[2021-01-22 08:25] LABS: INR 0.91 (0.87-1.13)
--- NOTE | 2021-01-22 09:03 | Cat Scan Report ---
CT head/brain wo con INDICATION: E.T.O.H. dependence, hallucinations. TECHNIQUE: Routine CT head. All CT scans at this location are performed using CT dose reduction for A ELISEO by means of automated exposure control. COMPARISON: 11/25/2020. FINDINGS: Intracranial: Faye-white matter differentiation is maintained. No intracranial hemorrhage. No extra a xial collection. No hydrocephalus. No herniation. Sinuses: Remote nasal bone fractures. Paranasal sinuses and mastoid air cells are essentially clear. Orbits: Globes are intact. Calvarium: No acute fracture. IMPRESSION: 1. No acute intracranial abnormality. Signer Name: Edward Woodruff MD Signed: 01/22/2021 8:58 AM Workstation Name: [id number]
--- NOTE | 2021-01-22 09:08 | Cat Scan Report ---
CT abdomen pelvis w con, CT chest w con INDICATION / CLINICAL INFORMATION: Pt complains of acute abd pain and lung pain, ETOH ABUSE OMNI 300 100 ML. TECHNIQUE: Axial CT images were obtained through the chest, abdomen and pelvis. All CT scans at this location ar e performed using CT dose reduction for ALARA by means of automated exposure control. COMPARISON: None available. FINDINGS: CHEST: Lungs: Lungs are clear No pleural effusion. No pneumothorax. Heart: No significant abnormality. Mediastinum: Moderate sized hiatal hernia. Vasculature: Central pulmonary artery enlargement which can suggest pulmonary arterial hypertension. Please note this protocol was not protocoled to evaluate for pulmonary embolism. No aortic aneurysm. No dissection. ADDITIONAL FINDINGS: None. ABDOMEN and PELVIS: Liver: Mild hypoattenuation of the liver. Biliary: No significant abnormality. Spleen: No significant abnormality. Unenlarged. Pancreas: No significant abnormality. Adrenals: No significant abnormality. Kidneys: No significant abnormality. Lymphatics: No lymphadenopathy. Vasculature: No significant abnormality. Bowel: No significant abnormality. Normal appendix. Pelvis: No significant abnormality. Osseous Structures: No aggressive osseous lesion. Facet arthropathy with grade 1 degenerative listhes is of L4 on L5 and minimal retrolisthesis of L3 on L4. Additional Findings: Lobulated upper fat-containing ventral abdominal hernia without complicating fea tures. IMPRESSION: 1. No acute abnormality of the chest, abdomen or pelvis. 2. Diffuse hepatic steatosis. Signer Name: Edward Woodruff MD Signed: 01/22/2021 9:04 AM Workstation Name: [id number]
--- NOTE | 2021-01-22 09:11 | XRay Report ---
LEFT ANKLE 2 VIEW(S) INDICATION / CLINICAL INFORMATION: left ankle pain COMPARISON: None available. FINDINGS: BONES / JOINT(S): There is a comminuted obliquely oriented fracture of the distal fibula above the di stal tibiofibular joint. No dislocation is seen. SOFT TISSUES: There is soft tissue swelling in the left lower leg and ankle. ADDITIONAL FINDINGS: None. Signer Name: Duc Abdullahi MD Signed: 01/22/2021 9:07 AM Workstation Name: [email or web address] [email or web address]
--- NOTE | 2021-01-22 09:58 | Nuclear Medicine Report ---
NUCLEAR MEDICINE PERFUSION LUNG SCAN INDICATION / CLINICAL INFORMATION: cp + d dimser. TECHNIQUE: 5.5 mCi of Tc-99m MAA were given by IV. COMPARISON: CT dated same day. FINDINGS: PERFUSION: Bilateral segmental perfusion defects ADDITIONAL FINDINGS: None. IMPRESSION: 1. Pulmonary embolism is present when correlated to prior CT chest. Signer Name: Edward Woodruff MD Signed: 01/22/2021 9:53 AM Workstation Name: [id number]
[2021-01-22] MEDS ORDERED: HEPARIN 10,000 UNITS/10 ML VIAL IV ONE (10:00)
[2021-01-22] MEDS ORDERED: HEPARIN 10,000 UNITS/10 ML VIAL IV PRN (10:00)
[2021-01-22] MEDS ORDERED: LACTATED RINGERS 1,000 ML ONE (10:02)
[2021-01-22] MEDS ORDERED: ONDANSETRON 4 MG/2 ML INJ ONE (10:02)
[2021-01-22] MEDS: LORazepam 2 MG/ML VIAL IV PRN (10:07)
--- NOTE | 2021-01-22 10:57 | Electrocardiograph Report ---
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
--- NOTE | 2021-01-22 10:59 | Electrocardiograph Report ---
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
--- NOTE | 2021-01-22 11:36 | History and Physical Report ---
History of Present Illness Date of examination: 01/22/21 Date of admission: 01/22/21 Chief complaint: Chest pain, abdominal pain, nausea vomiting History of present illness: The patient is a 55-year-old gentleman with past medical history includes paranoid schizophrenia, alcohol dependence, pancreatitis, esophagitis, hypertension, anemia, GERD presents to the ER today with a complaint of chest pain, abdominal pain, vomiting blood, black stool, and experiencing gonzalez llucinations. Off note he was admitted to this hospital November 2020 for sepsis secondary to pneumonia, and toxic metabolic encephalopathy, as well as rhabdomyolysis. The patient has a boot on his left lower extremity secondary to falling and twisting his ankle a few days ago. He also thinks that part of his symptoms may be related to alcohol withdrawal. The patient's chest pain is poorly characteriz ed, he thinks it is central, but is not sure, he does not believe it radiates anywhere. He denies diaphoresis or exertional shortness of breath. In the ER his workup was suggestive for acute PE, CT abdomen/pelvis showed no acute findings. Left leg xry showed left fibula fracture. Patient is being admitted for further evaluation and management for acute PE, possible alcohol withdrawal, left fibula fracture. Past History Past Medical History: anemia, GERD, hypertension, other Past Surgical History: hernia repair, Other (right ankle surgery) Social history: alcohol abuse Family history: hypertension Review of System: Constitutional: no fever, no chills, no weight loss Ears, eyes, nose, mouth and throat: no nasal congestion, no nasal discharge, no sinus pressure, no vision change, no red eye. Neck: No neck pain or rigidity. Cardiovascular: + chest pain, no orthopnea, no palpitations, no leg swelling Respiratory: No shortness of breath, no cough, no congestion, no wheezing Gastrointestinal: + abdominal pain, + nausea, + vomiting, + black skin Genitourinary : no dysuria, no hematuria Musculoskeletal: no joint swelling or muscle ache Integumentary: no rash, no pruritis Neurological: no parathesias, no numbness, no tingling Endocrine: no cold or heat intolerance, no polyuria or polydipsia Hematologic/Lymphatic: no easy bruising, no easy bleeding, no gland swelling Allergic/Immunologic: no urticaria, no angioedema. Medications and Allergies Allergies Allergy/AdvReac Type Severity Reaction Status Date / Time Penicillins Allergy Hives Verified 01/09/21 17:23 Home Medications Medication Instructions Recorded Confirmed Last Taken Type Quetiapine Fumarate [SEROquel] 300 mg PO QHS 10/11/20 11/25/20 Unknown History FLUoxetine [PROzac] 20 mg PO QAM #30 capsule 10/16/20 11/25/20 Unknown Rx Multivitamin with Folic Acid [[facility] 400 mcg PO QDAY #30 tablet 11/18/20 11/25/20 Unknown Rx One Daily Essential Tablet] Pantoprazole [Protonix TAB] 40 mg PO QDAY #30 11/18/20 11/25/20 Unknown Rx Amlodipine Besylate [Norvasc] 5 mg PO 11/25/20 Unknown History Folic Acid [Folvite] 1 mg PO QDAY #30 tablet 11/28/20 Unknown Rx Thiamine [Vitamin B-1] 100 mg PO QDAY #30 tablet 11/28/20 Unknown Rx Famotidine [Pepcid] 20 mg PO BID #20 tablet 01/05/21 Unknown Rx Multivitamin 1 each PO QDAY #30 tablet 01/05/21 Unknown Rx Active Meds: Active Medications Chlordiazepoxide HCl (Chlordiazepoxide 25 Mg Cap) 50 mg PO Q1HR PRN PRN Reason: CIWA-Ar 8-15 Dextrose (Dextrose 50% In Water (25gm) 50 Ml Vial) 50 gm IV Q30MIN PRN; Protocol PRN Reason: Hypoglycemia Heparin Sodium (Porcine) (Heparin 10,000 Units/10 Ml Vial) 3,400 unit 40 unit/kg (3400 unit) IV Q6H PRN PRN Reason: Anti-Xa Assay < 0.1 units/ml Dextrose/Sodium Chloride (D5/0.45ns) 1,000 mls @ 250 mls/hr IV DIRECT JOAN Thiamine HCl 100 mg/ Folic Acid 1 mg/ Multivitamins/Minerals 10 ml/ Sodium Chloride 1,011.2 mls @ 250 mls/hr IV ONCE ONE Stop: 01/22/21 11:50 Heparin Sodium/Sodium Chloride (Heparin/ 0.45% Nacl-25,000 Unit/500 Ml) 25,000 unit in 500 mls @ 20 mls/hr IV TITRATE JOAN; Protocol Lorazepam (Lorazepam 2 Mg/Ml Vial) 2 mg IV Q1HR PRN PRN Reason: CIWA-Ar 8-15 Lorazepam (Lorazepam 2 Mg/Ml Vial) 4 mg IV Q1HR PRN PRN Reason: CIWA-Ar 16-25 Last Admin: 01/22/21 10:07 Dose: 4 mg Documented by: Lorazepam (Lorazepam 2 Mg/Ml Vial) 4 mg IV Q15MIN PRN PRN Reason: CIWA-Ar >25 Exam - Physical Exam Narrative exam: GENERAL: well-developed and well-nourished -[place] male lying on bed appeared to be in no discomfort. HEENT: Normocephalic. Atraumatic. No conjunctival congestion or icterus. Patient has moist mucous membranes. NECK: Supple. Trachea midline. CHEST/LUNGS: breathing nonlabored. No wheezes crackles or rhonchi. HEART/CARDIOVASCULAR: Regular in rate and rhythm. S1 and S2 positive. ABDOMEN: Abdomen is soft, nontender. Patient has normal bowel sounds. SKIN: There is no rash. Warm and dry. NEURO: No focal motor deficit. Follows command. MUSCULOSKELETAL: Restricted left foot movement EXTRIMITY: No edema, no cyanosis or clubbing. PSYCH: Cooperative. - Constitutional Vitals: Temp Pulse Resp BP Pulse Ox 98.6 F 88 15 132/91 100 01/21/21 22:36 01/22/21 06:30 01/22/21 06:30 01/22/21 06:30 01/21/21 22:36 HEART Score - HEART Score EKG: Non-specific Age: 45-65 Risk factors: 1-2 risk factors Troponin: Troponin T < 0.010 ng/mL (0.00-0.029) 01/22/21 07:47 Troponin: < normal limit - Critical Actions Critical Actions: 0-3 pts:0.9-1.7%risk of adverse cardiac event.Candidate for discharge Results - Labs CBC & Chem 7: 01/22/21 14:31 01/21/21 23:01 Labs: Abnormal lab results 01/21/21 01/21/21 01/22/21 Range/Units 23:01 23:01 07:47 RBC 5.05 H (3.65-5.03) M/mm3 Hgb (11.8-15.2) gm/dl Hct (35.5-45.6) % MCV 76 L (84-94) fl MCH 24 L (28-32) pg RDW 21.1 H (13.2-15.2) % [place] % (Auto) 10.1 H (0.0-7.3) % [place] # (Auto) 0.9 H (0.0-0.8) K/mm3 D-Dimer 3114.60 H (0-234) ng/mlDDU Chloride 96.7 L (98-107) mmol/L BUN 6 L (9-20) mg/dL Glucose 101 H (75-100) mg/dL Salicylates (2.8-20.0) mg/dL Acetaminophen (10.0-30.0) ug/mL 01/22/21 01/22/21 01/22/21 Range/Units 07:47 07:47 07:47 RBC (3.65-5.03) M/mm3 Hgb 10.9 L (11.8-15.2) gm/dl Hct 33.6 L (35.5-45.6) % MCV (84-94) fl MCH (28-32) pg RDW (13.2-15.2) % [place] % (Auto) (0.0-7.3) % [place] # (Auto) (0.0-0.8) K/mm3 D-Dimer (0-234) ng/mlDDU Chloride (98-107) mmol/L BUN (9-20) mg/dL Glucose (75-100) mg/dL Salicylates < 0.3 L (2.8-20.0) mg/dL Acetaminophen 5.0 L (10.0-30.0) ug/mL - Imaging and Cardiology CT scan - abdomen: report reviewed (No acute intra-abdominal process) CT scan - chest: report reviewed Assessment and Plan Acute pulmonary embolism History of GERD and esophagitis Alcohol dependence with possible withdrawal Nausea vomiting likely due to alcohol withdrawal and underlying GERD Anemia of chronic disease Acute left fibula fracture Paranoid schizophrenia Hypertension, stable Plan: Admit the patient to telemetry Initiate heparin drip, also placed on Protonix/PPI IV Consult GI as patient with a history of GI bleed esophagitis and GERD ; for anticoagulation recommendation We will consult orthopedics for left fibula fracture We will resume home meds and monitor clinically Monitor vitals, adjust BP meds as needed Monitor H&H, monitor BMP
[2021-01-22] MEDS: HEPARIN/ 0.45% NACL DRIP 25,000 UNIT/500 ML BAG IV SCH (11:44)
--- NOTE | 2021-01-22 11:47 | Consultation ---
History of Present Illness - Reason for Consult Consult date: 01/22/21 Reason for consult: Psych Evaluation/ Alcohol use - History of Present Psychiatric Illness Per Ed Note: The patient is a 55-year-old gentleman. His past medical history includes paranoid schizophrenia, alcohol dependence, pancreatitis, esophagitis, hypertension, cirrhosis, anemia, GERD, admitted to this hospital November 2020 for sepsis secondary to pneumonia, and toxic metabolic encephalopathy, as well as rhabdomyolysis. The patient presents to the ER today with a complaint of chest p ain, abdominal pain, coughing up blood, vomiting blood, black stool, and experiencing hallucinations. The patient states he also feels like he might be having alcohol withdrawal.The patient is not homicidal or suicidal. The patient does not have access to guns or firearms.The patient has a boot on his left lower extremity secondary to falling and twisting his ankle a few days ago. He states he did not break any bones. He does not think he hit his head. The patient's chest pain is poorly characterized, he thinks it is central, but is not sure, he does not believe it radiates anywhere. He denies diaphoresis. He denies exertional shortness of breath.The patient is also asking to eat and dr ink at this time. He indicates that he is having simultaneous abdominal and chest pain.The abdominal pain is poorly characterized. He does not describe exacerbating or relieving factors. Kang Cruz is a 55 year old male with a history of alcohol use disorder. The patient was seen sedated. Per nurse, the patient was recently given Ativan IM per [facility] protocol. PAST PSYCHIATRIC HISTORY- Unable to assess PAST MEDICAL HISTORY: Unable to assess Family Psychiatric History: Unable to assess SOCIAL HISTORY: Unable to assess REVIEW OF SYSTEMS Constitutional: Negative for weight loss ENT: Negative for stridor Respiratory: Negative for cough or hemoptysis All other systems reviewed and are negative MENTAL STATUS EXAMINATION: Unable to assess Assessment: Treatment Plan Sitter: Per primary Medical: Per primary Disposition: Recommend acute psychiatric inpatient treatment Will follow. Thank you for this consult Case staffed with Dr. Ulrich Medications and Allergies Allergies Allergy/AdvReac Type Severity Reaction Status Date / Time Penicillins Allergy Hives Verified 01/09/21 17:23 Home Medications Medication Instructions Recorded Confirmed Last Taken Type Quetiapine Fumarate [SEROquel] 300 mg PO QHS 10/11/20 11/25/20 Unknown History FLUoxetine [PROzac] 20 mg PO QAM #30 capsule 10/16/20 11/25/20 Unknown Rx Multivitamin with Folic Acid [[facility] 400 mcg PO QDAY #30 tablet 11/18/20 11/25/20 Unknown Rx One Daily Essential Tablet] Pantoprazole [Protonix TAB] 40 mg PO QDAY #30 11/18/20 11/25/20 Unknown Rx Amlodipine Besylate [Norvasc] 5 mg PO 11/25/20 Unknown History Folic Acid [Folvite] 1 mg PO QDAY #30 tablet 11/28/20 Unknown Rx Thiamine [Vitamin B-1] 100 mg PO QDAY #30 tablet 11/28/20 Unknown Rx Famotidine [Pepcid] 20 mg PO BID #20 tablet 01/05/21 Unknown Rx Multivitamin 1 each PO QDAY #30 tablet 01/05/21 Unknown Rx Active Meds: Active Medications Chlordiazepoxide HCl (Chlordiazepoxide 25 Mg Cap) 50 mg PO Q1HR PRN PRN Reason: Chance 02-24 Dextrose (Dextrose 50% In Water (25gm) 50 Ml Vial) 50 gm IV Q30MIN PRN; Protocol PRN Reason: Hypoglycemia Heparin Sodium (Porcine) (Heparin 10,000 Units/10 Ml Vial) 3,400 unit 40 un it/kg (3400 unit) IV Q6H PRN PRN Reason: Anti-Xa Assay < 0.1 units/ml Dextrose/Sodium Chloride (D5/0.45ns) 1,000 mls @ 250 mls/hr IV DIRECT JOAN Thiamine HCl 100 mg/ Folic Acid 1 mg/ Multivitamins/Minerals 10 ml/ Sodium Chloride 1,011.2 mls @ 250 mls/hr IV ONCE ONE Stop: 01/22/21 11:50 Heparin Sodium/Sodium Chloride (Heparin/ 0.45% Nacl-25,000 Unit/500 Ml) 25,000 unit in 500 mls @ 20 mls/hr IV TITRATE JOAN; Protocol Lorazepam (Lorazepam 2 Mg/Ml Vial) 2 mg IV Q1HR PRN PRN Reason: Chance 02-24 Lorazepam (Lorazepam 2 Mg/Ml Vial) 4 mg IV Q1HR PRN PRN Reason: Chance Last Admin: 01/22/21 10:07 Dose: 4 mg Documented by: Lorazepam (Lorazepam 2 Mg/Ml Vial) 4 mg IV Q15MIN PRN PRN Reason: CIWA-Ar >25 Mental Status Exam - Vital signs Last Vital Signs Temp 98.6 F 01/21/21 22:36 Pulse 88 01/22/21 06:30 Resp 15 01/22/21 06:30 BP 132/91 01/22/21 06:30 Pulse Ox 100 01/21/21 22:36 Results Result Diagrams: 01/22/21 07:47 01/21/21 23:01 Abnormal lab results 01/21/21 01/21/21 01/22/21 Range/Units 23:01 23:01 07:47 RBC 5.05 H (3.65-5.03) M/mm3 Hgb (11.8-15.2) gm/dl Hct (35.5-45.6) % MCV 76 L (84-94) fl MCH 24 L (28-32) pg RDW 21.1 H (13.2-15.2) % [place] % (Auto) 10.1 H (0.0-7.3) % [place] # (Auto) 0.9 H (0.0-0.8) K/mm3 D-Dimer 3114.60 H (0-234) ng/mlDDU Chloride 96.7 L (98-107) mmol/L BUN 6 L (9-20) mg/dL Glucose 101 H (75-100) mg/dL Salicylates (2.8-20.0) mg/dL Acetaminophen (10.0-30.0) ug/mL 01/22/21 01/22/21 01/22/21 Range/Units 07:47 07:47 07:47 RBC (3.65-5.03) M/mm3 Hgb 10.9 L (11.8-15.2) gm/dl Hct 33.6 L (35.5-45.6) % MCV (84-94) fl MCH (28-32) pg RDW (13.2-15.2) % [place] % (Auto) (0.0-7.3) % [place] # (Auto) (0.0-0.8) K/mm3 D-Dimer (0-234) ng/mlDDU Chloride (98-107) mmol/L BUN (9-20) mg/dL Glucose (75-100) mg/dL Salicylates < 0.3 L (2.8-20.0) mg/dL Acetaminophen 5.0 L (10.0-30.0) ug/mL All other labs normal.
--- NOTE | 2021-01-22 13:59 | Gastroenterology Consultation ---
History of Present Illness - Reason for Consult Consult date: 01/22/21 Anemia, PE Requesting physician: BETTY ESPINOZA - History of Present Illness The patient is a 55 yo male who was admitted for weakness and possible EtOH withdrawal. He has new PEs noted on CT scan as well. He has no documented hx of GI Bleeding or EGD/colon here that I can find. He is a very poor historian, and has also gotten meds via [employer]. He has had no melena or hematemesis in the ER, and was guaiac negative for ER MD. He is on protonix, but it does not appear he was compliant with meds at home. There is a known hx of EtOH and cirrhosis per the chart. However, his CT from today shows no varices or ascites. In 2018 an EGD showed esophagitis. Past History Past Medical History: hypertension, hyperlipidemia, liver disease (Fatty liver (?cirrhosis per old records)), other (Schizophrenia, Pancreatitis) Social history: smoking, alcohol abuse, other (Cocaine) Family history: no significant family history Medications and Allergies Allergies Allergy/AdvReac Type Severity Reaction Status Date / Time Penicillins Allergy Hives Verified 01/09/21 17:23 Home Medications Medication Instructions Recorded Confirmed Last Taken Type Quetiapine Fumarate [SEROquel] 300 mg PO QHS 10/11/20 11/25/20 Unknown History FLUoxetine [PROzac] 20 mg PO QAM #30 capsule 10/16/20 11/25/20 Unknown Rx Multivitamin with Folic Acid [[facility]vs 400 mcg PO QDAY #30 tablet 11/18/20 11/25/20 Unknown Rx One Daily Essential Tablet] Pantoprazole [Protonix TAB] 40 mg PO QDAY #30 11/18/20 11/25/20 Unknown Rx Amlodipine Besylate [Norvasc] 5 mg PO 11/25/20 Unknown History Folic Acid [Folvite] 1 mg PO QDAY #30 tablet 11/28/20 Unknown Rx Thiamine [Vitamin B-1] 100 mg PO QDAY #30 tablet 11/28/20 Unknown Rx Famotidine [Pepcid] 20 mg PO BID #20 tablet 01/05/21 Unknown Rx Multivitamin 1 each PO QDAY #30 tablet 01/05/21 Unknown Rx Active Meds: Active Medications Amlodipine Besylate (Amlodipine 5 Mg Tab) 5 mg PO DAILY JOAN Chlordiazepoxide HCl (Chlordiazepoxide 25 Mg Cap) 50 mg PO Q1HR PRN PRN Reason: CIWA-Ar 8-15 Dextrose (Dextrose 50% In Water (25gm) 50 Ml Vial) 50 gm IV Q30MIN PRN; Protocol PRN Reason: Hypoglycemia Fluoxetine HCl (Fluoxetine 20 Mg Cap) 20 mg PO QAM [facility] Folic Acid (Folic Acid 1 Mg Tab) 1 mg PO QDAY [facility] Heparin Sodium (Porcine) (Heparin 10,000 Units/10 Ml Vial) 3,400 unit 40 unit/kg (3400 unit) IV Q6H PRN PRN Reason: Anti-Xa Assay < 0.1 units/ml Dextrose/Sodium Chloride (D5/0.45ns) 1,000 mls @ 250 mls/hr IV DIRECT JOAN Heparin Sodium/Sodium Chloride (Heparin/ 0.45% Nacl-25,000 Unit/500 Ml) 25,000 unit in 500 mls @ 20 mls/hr IV TITRATE JOAN; Protocol Last Admin: 01/22/21 11:44 Dose: 1,000 units/hr, 20 mls/hr Documented by: Lorazepam (Lorazepam 2 Mg/Ml Vial) 2 mg IV Q1HR PRN PRN Reason: CIWA-Ar 8-15 Lorazepam (Lorazepam 2 Mg/Ml Vial) 4 mg IV Q1HR PRN PRN Reason: CIWA-Ar 16-25 Last Admin: 01/22/21 10:07 Dose: 4 mg Documented by: Lorazepam (Lorazepam 2 Mg/Ml Vial) 4 mg IV Q15MIN PRN PRN Reason: CIWA-Ar >25 Multivitamins/Minerals (Multivitamins,Ther W-Minerals Tab) 1 each PO QDAY [facility] Pantoprazole Sodium (Pantoprazole 40 Mg Tab) 40 mg PO QDAY [facility] Quetiapine Fumarate (Quetiapine 100 Mg Tab) 300 mg PO QHS [facility] Thiamine HCl (Thiamine 100 Mg Tab) 100 mg PO QDAY [facility] I HAVE REVIEWED AND RECONCILED HIS MEDICATIONS Review of Systems - Review of Systems ROS unobtainable: due to mental status Exam - Constitutional Vital Signs: Temp Pulse Resp BP Pulse Ox 98.6 F 82 15 148/85 94 01/21/21 22:36 01/22/21 13:30 01/22/21 06:30 01/22/21 13:30 07/13/21 13:30 General appearance: other (Somnolent but will arouse) - EENT Eyes: PERRL, EOM intact ENT: hearing intact, clear oral mucosa, poor dentition - Neck Neck: supple, normal ROM - Respiratory Respiratory effort: normal Respiratory: bilateral: CTA - Cardiovascular Rhythm: regular Heart Sounds: Present: S1 & S2 Extremities: no ischemia, No edema - Gastrointestinal General gastrointestinal: Present: soft, non-tender, non-distended - Integumentary Integumentary: Present: clear, warm, dry - Neurologic Neurological: oriented to person, other (Somnolent and does not wish to comply with instructions; no focal defecit noted) - Labs CBC & Chem 7: 01/22/21 07:47 01/21/21 23:01 Lab Results: Laboratory Results - last 24 hr 01/21/21 01/21/21 01/22/21 23:01 23:01 07:47 WBC 8.9 RBC 5.05 H Hgb 12.2 Hct 38.4 MCV 76 L MCH 24 L MCHC 32 RDW 21.1 H Plt Count 416 Lymph % (Auto) 21.5 [place] % (Auto) 10.1 H Eos % (Auto) 0.9 Baso % (Auto) 0.5 Lymph # (Auto) 1.9 [place] # (Auto) 0.9 H Eos # (Auto) 0.1 Baso # (Auto) 0.0 Seg Neutrophils % 67.0 Seg Neutrophils # 6.0 PT 12.8 INR 0.91 D-Dimer 3114.60 H Sodium 139 Potassium 3.7 Chloride 96.7 L Carbon Dioxide 28 Anion Gap 18 BUN 6 L Creatinine 0.8 Estimated GFR > 60 BUN/Creatinine Ratio 8 Glucose 101 H POC Glucose Calcium 9.4 Ammonia Troponin T Amylase 75 Lipase 13 Salicylates Acetaminophen Plasma/Serum Alcohol 01/22/21 01/22/21 01/22/21 07:47 07:47 07:47 WBC RBC Hgb Hct MCV MCH MCHC RDW Plt Count Lymph % (Auto) [place] % (Auto) Eos % (Auto) Baso % (Auto) Lymph # (Auto) [place] # (Auto) Eos # (Auto) Baso # (Auto) Seg Neutrophils % Seg Neutrophils # PT INR D-Dimer Sodium Potassium Chloride Carbon Dioxide Anion Gap BUN Creatinine Estimated GFR BUN/Creatinine Ratio Glucose POC Glucose Calcium Ammonia Troponin T < 0.010 Amylase Lipase Salicylates < 0.3 L Acetaminophen 5.0 L Plasma/Serum Alcohol 01/22/21 01/22/21 01/22/21 07:47 07:47 07:48 WBC RBC Hgb 10.9 L Hct 33.6 L MCV MCH MCHC RDW Plt Count Lymph % (Auto) [place] % (Auto) Eos % (Auto) Baso % (Auto) Lymph # (Auto) [place] # (Auto) Eos # (Auto) Baso # (Auto) Seg Neutrophils % Seg Neutrophils # PT INR D-Dimer Sodium Potassium Chloride Carbon Dioxide Anion Gap BUN Creatinine Estimated GFR BUN/Creatinine Ratio Glucose POC Glucose Calcium Ammonia 35.0 Troponin T Amylase Lipase Salicylates Acetaminophen Plasma/Serum Alcohol < 0.01 01/22/21 13:29 WBC RBC Hgb Hct MCV MCH MCHC RDW Plt Count Lymph % (Auto) [place] % (Auto) Eos % (Auto) Baso % (Auto) Lymph # (Auto) [place] # (Auto) Eos # (Auto) Baso # (Auto) Seg Neutrophils % Seg Neutrophils # PT INR D-Dimer Sodium Potassium Chloride Carbon Dioxide Anion Gap BUN Creatinine Estimated GFR BUN/Creatinine Ratio Glucose POC Glucose 107 H Calcium Ammonia Troponin T Amylase Lipase Salicylates Acetaminophen Plasma/Serum Alcohol Assessment and Plan - Patient Problems (1) Anemia of chronic disease Current Visit: Yes Status: Acute Plan to address problem: - No gross bleeding, but not clear the patient has ever had a colonoscopy, and his last EGD here was 2017. - Given the significant PEs seen on the CT, will start anticoagulation and monitor on protonix. - If significant GI bleeding noted, will need endoscopic evaluation; if stable, would prefer treatment with anticoagulation for at least 2 weeks (prefer 4) be fore proceeding to endoscopy. - Of note, labs and CT do not support dx of cirrhosis, and no varices are seen. (2) Pulmonary embolism Current Visit: Yes Status: Acute Plan to address problem: - Patient cleared to start heparin therapy, with close monitoring for GI bleeding.
[2021-01-22 14:51] LABS: Hematocrit 32.6 % (35.5-45.6); Hemoglobin 10.3 gm/dl (11.8-15.2)
[2021-01-22 15:16] LABS: INR 1.11 (0.87-1.13)
[2021-01-22 15:17] LABS: Partial Thromboplastin Time 37.6 Sec. (24.2-36.6)
[2021-01-22 18:18] LABS: Bilirubin,Urine SM (Negative); Blood,Urine NEG (Negative); Color,Urine Amber (Yellow); Mucus,Urine 3+ /HPF
[2021-01-22 18:20] LABS: Amphetamine Screen,Urine PRESUMPTIVE NEGATIVE; Benzodiazepines Screen,Urine PRESUMPTIVE POSITIVE; Cannabinoid Screen,Urine PRESUMPTIVE NEGATIVE; Cocaine Screen,Urine PRESUMPTIVE POSITIVE; Methadone Screen,Urine PRESUMPTIVE NEGATIVE; Opiate Screen,Urine PRESUMPTIVE NEGATIVE
[2021-01-22 18:22] LABS: Ictotest,Urine Negative (Negative)
[2021-01-22] MEDS: D5W/0.45% NACL 1,000 ML IV SCH (20:40)
[2021-01-22] MEDS: QUEtiapine 100 MG TAB PO SCH (21:43)
[2021-01-22] MEDS ORDERED: NON-FORMULARY EACH (Quetiapine Fumarate [Seroquel] 300 MG Tablet) PO SCH (22:00)
[2021-01-22] MEDS ORDERED: MORPHINE 2 MG/1 ML INJ IV ONE (23:59)
[2021-01-23] MEDS ORDERED: MORPHINE 4 MG/1 ML INJ IV ONE (04:40)
[2021-01-23] MEDS: MORPHINE 2 MG/1 ML INJ IV PRN ×4 (04:41→21:14)
[2021-01-23] MEDS: D5W/0.45% NACL 1,000 ML IV SCH ×3 (04:45→21:29)
[2021-01-23] MEDS: PANTOPRAZOLE 40 MG TAB PO SCH ×2 (09:29→09:30)
[2021-01-23] MEDS: MULTIVITAMINS,THER W-MINERALS TAB PO SCH (09:30)
[2021-01-23] MEDS: THIAMINE 100 MG TAB PO SCH (09:30)
[2021-01-23] MEDS: amLODIPine 5 MG TAB PO SCH (09:30)
[2021-01-23] MEDS: FOLIC ACID 1 MG TAB PO SCH (09:30)
[2021-01-23] MEDS: FLUoxetine 20 MG CAP PO SCH (09:31)
[2021-01-23] MEDS: oxyCODONE /ACETAMINOPHEN 5-325MG TAB PO PRN (09:33)
--- NOTE | 2021-01-23 09:56 | Gastroenterology Progress Note ---
Assessment and Plan - Patient Problems (1) Anemia of chronic disease Current Visit: Yes Status: Acute Plan to address problem: - No gross bleeding, but not clear the patient has ever had a colonoscopy, and his last EGD here was 2017. - Given the significant PEs seen on the CT, will start anticoagulation and monitor on protonix. - If significant GI bleeding noted, will need endoscopic evaluation; if stable, would prefer treatment with anticoagulation for at least 2 weeks (prefer 4) before proceeding to endoscopy. - Of note, labs and CT do not support dx of cirrhosis, and no varices are seen. - Continue protonix and MVI therapy; advance diet. - We will sign off; please call if needed. (2) Pulmonary embolism Current Visit: Yes Status: Acute Plan to address problem: - Patient cleared to start heparin therapy, with close monitoring for GI bleeding. Subjective Date of service: 01/23/21 Principal diagnosis: Anemia Interval history: The patient has had no melena since admit, and his mental status is much improved. He is tolerating heparin without hematemesis. He is hungry, and tolerating PO liquids; he would like to start a regular diet. Objective - Constitutional Vitals: Temp Pulse Resp BP Pulse Ox 97.5 F L 78 18 133/91 94 01/23/21 08:04 01/23/21 08:04 01/23/21 08:04 01/23/21 08:04 01/23/21 08:04 General appearance: other (Markedly more alert today) - EENT Eyes: PERRL, EOM intact ENT: hearing intact, clear oral mucosa - Respiratory Respiratory effort: normal Respiratory: bilateral: CTA - Cardiovascular Rhythm: regular Heart Sounds: Present: S1 & S2 - Gastrointestinal General gastrointestinal: Present: soft, non-tender, non-distended - Labs CBC & Chem 7: 01/22/21 14:31 01/21/21 23:01 Labs: Laboratory Results - last 24 hr 01/22/21 01/22/21 01/22/21 13:29 14:31 14:31 Hgb 10.3 L Hct 32.6 L PT INR APTT Heparin Anti-Xa Level POC Glucose 107 H Troponin T < 0.010 Urine Color Urine Turbidity Urine pH Ur Specific [place] Urine Protein Urine Glucose (UA) Urine Ketones Urine Blood Urine Nitrite Urine Bilirubin Urine Ictotest Urine Urobilinogen Ur Leukocyte Esterase Urine WBC (Auto) Urine RBC (Auto) Urine Mucus Urine Opiates Screen Urine Methadone Screen Ur Barbiturates Screen Ur Phencyclidine Scrn Ur Amphetamines Screen U Benzodiazepines Scrn Urine Cocaine Screen U Marijuana (THC) Screen Drugs of Abuse Note 01/22/21 01/22/21 01/22/21 14:31 17:58 17:58 Hgb Hct PT 14.8 INR 1.11 APTT 37.6 H Heparin Anti-Xa Level POC Glucose Troponin T Urine Color [place] Urine Turbidity Clear Urine pH 6.0 Ur Specific [place] 1.060 H Urine Protein 30 mg/dl Urine Glucose (UA) Neg Urine Ketones Neg Urine Blood Neg Urine Nitrite Neg Urine Bilirubin Sm Urine Ictotest Negative Urine Urobilinogen 4.0 Ur Leukocyte Esterase Neg Urine WBC (Auto) 4.0 Urine RBC (Auto) 3.0 Urine Mucus 3+ Urine Opiates Screen Presumptive negative Urine Methadone Screen Presumptive negative Ur Barbiturates Screen Presumptive positive Ur Phencyclidine Scrn Presumptive negative Ur Amphetamines Screen Presumptive negative U Benzodiazepines Scrn Presumptive positive Urine Cocaine Screen Presumptive positive U Marijuana (THC) Screen Presumptive negative Drugs of Abuse Note Disclamer 01/22/21 01/22/21 01/23/21 22:35 Unknown 02:01 Hgb Hct PT INR APTT Heparin Anti-Xa Level 0.25 L POC Glucose 136 H Troponin T < 0.010 Urine Color Urine Turbidity Urine pH Ur Specific [place] Urine Protein Urine Glucose (UA) Urine Ketones Urine Blood Urine Nitrite Urine Bilirubin Urine Ictotest Urine Urobilinogen Ur Leukocyte Esterase Urine WBC (Auto) Urine RBC (Auto) Urine Mucus Urine Opiates Screen Urine Methadone Screen Ur Barbiturates Screen Ur Phencyclidine Scrn Ur Amphetamines Screen U Benzodiazepines Scrn Urine Cocaine Screen U Marijuana (THC) Screen Drugs of Abuse Note 01/23/21 01/23/21 01/23/21 02:01 02:06 05:47 Hgb Hct PT INR APTT Heparin Anti-Xa Level 0.25 L POC Glucose 108 H 114 H Troponin T Urine Color Urine Turbidity Urine pH Ur Specific [place] Urine Protein Urine Glucose (UA) Urine Ketones Urine Blood Urine Nitrite Urine Bilirubin Urine Ictotest Urine Urobilinogen Ur Leukocyte Esterase Urine WBC (Auto) Urine RBC (Auto) Urine Mucus Urine Opiates Screen Urine Methadone Screen Ur Barbiturates Screen Ur Phencyclidine Scrn Ur Amphetamines Screen U Benzodiazepines Scrn Urine Cocaine Screen U Marijuana (THC) Screen Drugs of Abuse Note
[2021-01-23] MEDS ORDERED: NON-FORMULARY EACH (Multivitamin [Multivitamin] 1 EACH Tablet) PO SCH (10:00)
[2021-01-23] MEDS: HEPARIN/ 0.45% NACL DRIP 25,000 UNIT/500 ML BAG IV SCH (12:29)
[2021-01-23] MEDS: APIXABAN 5 MG TAB PO SCH ×2 (13:58→21:16)
--- NOTE | 2021-01-23 14:52 | Progress Note ---
Assessment and Plan Acute pulmonary embolism History of GERD and esophagitis Alcohol dependence with possible withdrawal Nausea vomiting likely due to alcohol withdrawal and underlying GERD Anemia of chronic disease Acute left fibula fracture Paranoid schizophrenia Hypertension, stable Plan: patient Initiated heparin drip, also placed on Protonix/PPI IV: We will place on Eliquis today Consulted GI as patient with a history of GI bleed esophagitis and GERD ; for anticoagulation recommendation GI recommended to continue anticoagulation, will continue to monitor H&H Patient with no nausea vomiting and tolerating diet Continue to monitor for alcohol withdrawal Pending orthopedics consult for left fibula fracture Continue home meds and monitor clinically Monitor vitals, adjust BP meds as needed, PT eval Subjective Date of service: 01/23/21 Principal diagnosis: Anemia Interval history: Patient seen and examined. Medical records and medication list reviewed. No acute event overnight noted by the RN. Patient complains of chest tightness and exertional difficulty breathing. Patient is tolerating diet. He also complains unable to put weight on his left leg Discussed plan of care at bedside with patient. Objective - Exam Narrative Exam: GENERAL: well-developed and well-nourished -[place] male lying on bed appeared to be in no discomfort. HEENT: Normocephalic. Atraumatic. No conjunctival congestion or icterus. Patient has moist mucous membranes. NECK: Supple. Trachea midline. CHEST/LUNGS: breathing nonlabored. No wheezes crackles or rhonchi. HEART/CARDIOVASCULAR: Regular in rate and rhythm. S1 and S2 positive. ABDOMEN: Abdomen is soft, nontender. Patient has normal bowel sounds. SKIN: There is no rash. Warm and dry. NEURO: No focal motor deficit. Follows command. MUSCULOSKELETAL: Restricted left foot movement EXTRIMITY: No edema, no cyanosis or clubbing. PSYCH: Cooperative. - Constitutional Vitals: Vital Signs - 12hr 01/23/21 01/23/21 05:44 08:04 Temperature 97.5 F L 97.5 F L Pulse Rate 72 78 Respiratory 20 18 Rate Blood Pressure 112/76 133/91 O2 Sat by Pulse 95 94 Oximetry - Labs CBC & Chem 7: 01/22/21 14:31 01/21/21 23:01 Labs: Abnormal lab results 01/22/21 01/22/21 01/22/21 Range/Units 14:31 14:31 17:58 Hgb 10.3 L (11.8-15.2) gm/dl Hct 32.6 L (35.5-45.6) % APTT 37.6 H (24.2-36.6) Sec. Heparin Anti-Xa Level (0.3-0.7) U.I./ml POC Glucose (70-105) mg/dL Ur Specific [place] 1.060 H (1.003-1.030) 01/22/21 01/22/21 01/23/21 Range/Units 22:35 Unknown 02:01 Hgb (11.8-15.2) gm/dl Hct (35.5-45.6) % APTT (24.2-36.6) Sec. Heparin Anti-Xa Level 0.25 L 0.25 L (0.3-0.7) U.I./ml POC Glucose 136 H (70-105) mg/dL Ur Specific [place] (1.003-1.030) 01/23/21 01/23/21 Range/Units 02:06 05:47 Hgb (11.8-15.2) gm/dl Hct (35.5-45.6) % APTT (24.2-36.6) Sec. Heparin Anti-Xa Level (0.3-0.7) U.I./ml POC Glucose 108 H 114 H (70-105) mg/dL Ur Specific [place] (1.003-1.030) HEART Score - HEART Score EKG: Non-specific Age: 45-65 Risk factors: 1-2 risk factors Troponin: Troponin T < 0.010 ng/mL (0.00-0.029) 01/23/21 02:01 Troponin: < normal limit - Critical Actions Critical Actions: 0-3 pts:0.9-1.7%risk of adverse cardiac event.Candidate for discharge
[2021-01-23 15:19] LABS: Hemoglobin 10.1 gm/dl (11.8-15.2); Mean Corpuscular HGB Conc 32 % (32-34); Mean Corpuscular Volume 76 fl (84-94); Platelet Count 361 K/mm3 (140-440); Red Blood Count 4.09 M/mm3 (3.65-5.03)
--- NOTE | 2021-01-23 15:19 | Progress Note ---
Subjective - Reason for Consult Consult date: 01/23/21 Reason for consult: Alcohol use disorder - Chief Complaint Chief complaint: This patient has a history of alcohol use disorder and was discharged from this Hospital about a week ago. The patient was seen today, and he states he is not doing well. The patient presents with moderate tremors and cravings for alcohol. He endorses being depressed, having auditory and visual hallucinations" voices telling me to kill myself and I see rats." When asked why he drinks, he states " life sucks, and I'm and an alcoholic." He denies any current suicidal/homicidal ideation. REVIEW OF SYSTEMS Constitutional: Negative for weight loss ENT: Negative for stridor Respiratory: Negative for cough or hemoptysis All other systems reviewed and are negative MENTAL STATUS EXAMINATION General Appearance and Behavior: Age appropriate, good hygiene, wearing appropriate clothes, uncooperative polite with questioning. Cooperation: cooperative Psychomotor Behavior: Psychomotor agitation Mood: " I'm not doing well" Affect and affective range: congruent to stated mood Thought Process: compulsive Thought Content: Denies suicidal Speech: Normal volume, Regular rate and rhythm Intellectual Functioning: Average Suicidal Ideation: Denied Homicidal Ideation: Denied hallucination: Auditory and visual Impulse Control: impaired Insight and Judgment: limited Memory: memory impaired Attention:Distractible Orientation: Alert and oriented Diagnoses:Alcohol use Disorder, Moderate- F10.20 Current Visit: Yes Status: Acute RECOMMENDATIONS Continue Home medication Continue with [facility] protocol Risks, benefits and alternatives of medications discussed with the patient, questions answered and consent obtained from patient. PSYCHOTHERAPY: Supportive psychotherapy provided MEDICAL: Per primary team DELIRIUM PRECAUTIONS: Please re-orient patient frequently, keep lights on during the day, and minimize benzodiazepines and opiates as these medications could worsen patient's confusion. [employer]: Per medical team DISPOSITION: Do not recommend acute inpatient psychiatric hospitalization at this time will recommend case management. FOLLOW-UP: Will sign off. Thank you for the consult. Please contact with any questions and/or concerns. Mental Status Exam - Vital signs Last Vital Signs Temp 97.5 F L 01/23/21 08:04 Pulse 78 01/23/21 08:04 Resp 18 01/23/21 08:04 BP 133/91 01/23/21 08:04 Pulse Ox 94 01/23/21 08:04
[2021-01-23 15:22] LABS: Red Cell Distribution Width 20.1 % (13.2-15.2)
[2021-01-23 15:36] LABS: Partial Thromboplastin Time 31.1 Sec. (24.2-36.6)
[2021-01-23] MEDS: QUEtiapine 100 MG TAB PO SCH (21:14)
[2021-01-23] MEDS: LORazepam 2 MG/ML VIAL IV PRN (21:14)
[2021-01-24] MEDS: LORazepam 2 MG/ML VIAL IV PRN (00:40)
[2021-01-24] MEDS: MORPHINE 2 MG/1 ML INJ IV PRN ×2 (08:27→22:23)
[2021-01-24] MEDS: FOLIC ACID 1 MG TAB PO SCH (09:38)
[2021-01-24] MEDS: MULTIVITAMINS,THER W-MINERALS TAB PO SCH (09:39)
[2021-01-24] MEDS: APIXABAN 5 MG TAB PO SCH ×2 (09:39→22:23)
[2021-01-24] MEDS: FLUoxetine 20 MG CAP PO SCH (09:39)
[2021-01-24] MEDS: THIAMINE 100 MG TAB PO SCH (09:41)
[2021-01-24] MEDS: PANTOPRAZOLE 40 MG TAB PO SCH (09:41)
[2021-01-24] MEDS: D5W/0.45% NACL 1,000 ML IV SCH (09:42)
[2021-01-24 10:51] LABS: Basophils % (Auto) 0.6 % (0.0-1.8); Eosinophils # (Auto) 0.1 K/mm3 (0.0-0.4); Eosinophils % (Auto) 2.3 % (0.0-4.3); Hematocrit 31.8 % (35.5-45.6); Hemoglobin 9.7 gm/dl (11.8-15.2); Lymphocytes # (Auto) 1.3 K/mm3 (1.2-5.4); Lymphocytes % (Auto) 22.2 % (13.4-35.0); Mean Corpuscular HGB Conc 31 % (32-34); Mean Corpuscular Volume 77 fl (84-94); Monocytes # (Auto) 0.6 K/mm3 (0.0-0.8); Monocytes % (Auto) 9.7 % (0.0-7.3); Platelet Count 361 K/mm3 (140-440); Red Blood Count 4.12 M/mm3 (3.65-5.03); Red Cell Distribution Width 19.9 % (13.2-15.2)
--- NOTE | 2021-01-24 10:58 | Consultation ---
History of Present Illness - HPI Consult date: 01/24/21 Consult reason: fracture (55-year-old male with a history of paranoid schizophrenia and alcoholism who presented to the emergency room complaining of left ankle pain and swelling patient states he injured his leg about 2 to 3 days prior was seen at outside facility where he was given a short leg walking boot) Past History Past Medical History: hypertension, hyperlipidemia, liver disease (Fatty liver (?cirrhosis per old records)), other (Schizophrenia, Pancreatitis) Social history: smoking, alcohol abuse, other (Cocaine) Family history: no significant family history Medications and Allergies Allergies Allergy/AdvReac Type Severity Reaction Status Date / Time Penicillins Allergy Hives Verified 01/09/21 17:23 Home Medications Medication Instructions Recorded Confirmed Last Taken Type Quetiapine Fumarate [SEROquel] 300 mg PO QHS 10/11/20 11/25/20 Unknown History FLUoxetine [PROzac] 20 mg PO QAM #30 capsule 10/16/20 11/25/20 Unknown Rx Multivitamin with Folic Acid [[facility] 400 mcg PO QDAY #30 tablet 11/18/20 11/25/20 Unknown Rx One Daily Essential Tablet] Pantoprazole [Protonix TAB] 40 mg PO QDAY #30 11/18/20 11/25/20 Unknown Rx Amlodipine Besylate [Norvasc] 5 mg PO 11/25/20 Unknown History Folic Acid [Folvite] 1 mg PO QDAY #30 tablet 11/28/20 Unknown Rx Thiamine [Vitamin B-1] 100 mg PO QDAY #30 tablet 11/28/20 Unknown Rx Famotidine [Pepcid] 20 mg PO BID #20 tablet 01/05/21 Unknown Rx Multivitamin 1 each PO QDAY #30 tablet 01/05/21 Unknown Rx Active Meds: Active Medications Amlodipine Besylate (Amlodipine 5 Mg Tab) 5 mg PO DAILY JOAN Last Admin: 01/23/21 09:30 Dose: 5 mg Documented by: Apixaban (Apixaban 5 Mg Tab) 10 mg PO Q12HR JOAN; Protocol Stop: 01/29/21 22:01 Last Admin: 01/24/21 09:39 Dose: 10 mg Documented by: Apixaban (Apixaban 5 Mg Tab) 5 mg PO Q12HR JOAN; Protocol Chlordiazepoxide HCl (Chlordiazepoxide 25 Mg Cap) 50 mg PO Q1HR PRN PRN Reason: CIWA-Ar 8-15 Last Admin: 01/24/21 00:40 Dose: 50 mg Documented by: Dextrose (Dextrose 50% In Water (25gm) 50 Ml Vial) 50 gm IV Q30MIN PRN; Protocol PRN Reason: Hypoglycemia Fluoxetine HCl (Fluoxetine 20 Mg Cap) 20 mg PO QAM [facility] Last Admin: 01/24/21 09:39 Dose: 20 mg Documented by: Folic Acid (Folic Acid 1 Mg Tab) 1 mg PO QDAY [facility] Last Admin: 01/24/21 09:38 Dose: 1 mg Documented by: Dextrose/Sodium Chloride (D5/0.45ns) 1,000 mls @ 250 mls/hr IV DIRECT [facility] Last Admin: 01/24/21 09:42 Dose: 250 mls/hr Documented by: Lorazepam (Lorazepam 2 Mg/Ml Vial) 2 mg IV Q1HR PRN PRN Reason: CIWA-Ar 8-15 Last Admin: 01/23/21 21:14 Dose: 2 mg Documented by: Lorazepam (Lorazepam 2 Mg/Ml Vial) 4 mg IV Q1HR PRN PRN Reason: CIWA-Ar 16-25 Last Admin: 01/24/21 00:40 Dose: 4 mg Documented by: Lorazepam (Lorazepam 2 Mg/Ml Vial) 4 mg IV Q15MIN PRN PRN Reason: CIWA-Ar >25 Morphine Sulfate (Morphine 2 Mg/1 Ml Inj) 2 mg IV Q4H PRN PRN Reason: Pain, Moderate (4-6) Last Admin: 01/24/21 08:27 Dose: 2 mg Documented by: Multivitamins/Minerals (Multivitamins,Ther W-Minerals Tab) 1 each PO QDAY [facility] Last Admin: 01/24/21 09:39 Dose: 1 each Documented by: Oxycodone/Acetaminophen (Oxycodone /Acetaminophen 5-325mg Tab) 1 tab PO Q6H PRN PRN Reason: Pain, Moderate (4-6) Last Admin: 01/23/21 09:33 Dose: 1 tab Documented by: Pantoprazole Sodium (Pantoprazole 40 Mg Tab) 40 mg PO QDAY [facility] Last Admin: 01/24/21 09:41 Dose: 40 mg Documented by: Quetiapine Fumarate (Quetiapine 100 Mg Tab) 300 mg PO QHS [facility] Last Admin: 01/23/21 21:14 Dose: 300 mg Documented by: Thiamine HCl (Thiamine 100 Mg Tab) 100 mg PO QDAY [facility] Last Admin: 01/24/21 09:41 Dose: 100 mg Documented by: Physical Examination - Physical exam Narrative exam: Left ankle moderate swelling tender over the distal third no obvious deformity passive range of motion decreased Plain x-rays of the left lower extremity were reviewed by me and show a minimally displaced distal third fracture of the fibula with an intact ankle mortise Assessment and Plan Left ankle fracture stable Recommend continuing weightbearing as tolerated with a walking boot along with physical therapy evaluation
[2021-01-24] MEDS: amLODIPine 5 MG TAB PO SCH ×2 (11:36→17:15)
[2021-01-24 11:56] LABS: Blood Urea Nitrogen 5 mg/dL (9-20); Calcium 8.9 mg/dL (8.4-10.2); Hemolysis Index 5
[2021-01-24 12:10] LABS: BUN/Creatinine Ratio 8
--- NOTE | 2021-01-24 16:14 | Progress Note ---
Assessment and Plan Acute pulmonary embolism - s/p heparin drip, now on eliquis History of GERD and esophagitis, cont PPI Alcohol dependence with possible withdrawal, on CIWA protocol Nausea vomiting likely due to alcohol withdrawal and underlying GERD - antiemetic as needed Anemia of chronic disease, monitor h/h Acute left fibula fracture, consevative mx per ortho Paranoid schizophrenia, psych consulted SI, will follow psych recommendation Hypertension, stable Dvt Px, on eliquis Daily clinical course: 01/22/21: Admit the patient to telemetry Initiate heparin drip, also placed on Protonix/PPI IV Consult GI as patient with a history of GI bleed esophagitis and GERD ; for anticoagulation recommendation We will consult orthopedics for left fibula fracture We will resume home meds and monitor clinically Monitor vitals, adjust BP meds as needed Monitor H&H, monitor BMP 01/23/21: patient Initiated heparin drip, also placed on Protonix/PPI IV: We will place on Eliquis today Consulted GI and recommended to continue anticoagulation, will continue to monitor H&H Patient with no nausea vomiting and tolerating diet Continue to monitor for alcohol withdrawal Pending orthopedics consult for left fibula fracture Continue home meds and monitor clinically Monitor vitals, adjust BP meds as needed, PT eval 01/24/21: Continue Eliquis for anticoagulation Orthopedics recommended no surgical intervention and continue physical therapy PT consulted and evaluation pending Patient today complaints of suicidal ideation: Reconsult psych Subjective Date of service: 01/24/21 Principal diagnosis: Anemia Interval history: Patient seen and examined. Medical records and medication list reviewed. No acute event overnight noted by the RN. Patient continue to complains of chest tightness and exertional difficulty breathing. Patient is tolerating diet. PT eval pending. Patient complains of suicidal ideation Patient states that if he is being discharged he might going to hurt himself Discussed plan of care at bedside with RN and case management. Objective - Exam Narrative Exam: GENERAL: well-developed and well-nourished -[place] male lying on bed appeared to be in no discomfort. HEENT: Normocephalic. Atraumatic. No conjunctival congestion or icterus. Patient has moist mucous membranes. NECK: Supple. Trachea midline. CHEST/LUNGS: breathing nonlabored. No wheezes crackles or rhonchi. HEART/CARDIOVASCULAR: Regular in rate and rhythm. S1 and S2 positive. ABDOMEN: Abdomen is soft, nontender. Patient has normal bowel sounds. SKIN: There is no rash. Warm and dry. NEURO: No focal motor deficit. Follows command. MUSCULOSKELETAL: Restricted left foot movement EXTRIMITY: No edema, no cyanosis or clubbing. PSYCH: Cooperative. - Constitutional Vitals: Vital Signs - 12hr 01/24/21 01/24/21 01/24/21 07:23 11:00 11:43 Temperature 98.4 F 98.1 F Pulse Rate 88 81 94 H Respiratory 20 19 Rate Blood Pressure 112/64 118/71 O2 Sat by Pulse 95 95 Oximetry 01/24/21 12:00 Temperature Pulse Rate Respiratory 18 Rate Blood Pressure O2 Sat by Pulse Oximetry - Labs CBC & Chem 7: 01/24/21 09:50 01/24/21 09:50 Labs: Abnormal lab results 01/24/21 01/24/21 Range/Units 09:50 09:50 Hgb 9.7 L (11.8-15.2) gm/dl Hct 31.8 L (35.5-45.6) % MCV 77 L (84-94) fl MCH 24 L (28-32) pg MCHC 31 L (32-34) % RDW 19.9 H (13.2-15.2) % [place] % (Auto) 9.7 H (0.0-7.3) % BUN 5 L (9-20) mg/dL Creatinine 0.6 L (0.8-1.3) mg/dL HEART Score - HEART Score EKG: Non-specific Age: 45-65 Risk factors: 1-2 risk factors Troponin: Troponin T < 0.010 ng/mL (0.00-0.029) 01/23/21 02:01 Troponin: < normal limit - Critical Actions Critical Actions: 0-3 pts:0.9-1.7%risk of adverse cardiac event.Candidate for discharge
[2021-01-24] MEDS: oxyCODONE /ACETAMINOPHEN 5-325MG TAB PO PRN (17:14)
[2021-01-24] MEDS: QUEtiapine 100 MG TAB PO SCH (22:23)
[2021-01-25] MEDS: oxyCODONE /ACETAMINOPHEN 5-325MG TAB PO PRN ×3 (06:30→18:31)
[2021-01-25 06:32] LABS: Hematocrit 32.1 % (35.5-45.6); Hemoglobin 9.9 gm/dl (11.8-15.2); Mean Corpuscular HGB Conc 31 % (32-34); Mean Corpuscular Volume 76 fl (84-94); Platelet Count 382 K/mm3 (140-440); Red Blood Count 4.23 M/mm3 (3.65-5.03)
[2021-01-25 06:54] LABS: Red Cell Distribution Width 20.6 % (13.2-15.2)
[2021-01-25] MEDS: LORazepam 2 MG/ML VIAL IV PRN ×2 (07:58→12:34)
--- NOTE | 2021-01-25 08:12 | Progress Note ---
Assessment and Plan Assessment and plan: Acute pulmonary embolism - s/p heparin drip, now on eliquis History of GERD and esophagitis, cont PPI Alcohol dependence with possible withdrawal, on CIWA protocol Nausea vomiting likely due to alcohol withdrawal and underlying GERD - antiemetic as needed Anemia of chronic disease, monitor h/h Acute left fibula fracture, consevative mx per ortho Paranoid schizophrenia, psych consulted SI, will follow psych recommendation Hypertension, stable Dvt Px, on eliquis Daily clinical course: 01/22/21: Admit the patient to telemetry Initiate heparin drip, also placed on Protonix/PPI IV Consult GI as patient with a history of GI bleed esophagitis and GERD ; for anticoagulation recommendation We will consult orthopedics for left fibula fracture We will resume home meds and monitor clinically Monitor vitals, adjust BP meds as needed Monitor H&H, monitor BMP 01/23/21: patient Initiated heparin drip, also placed on Protonix/PPI IV: We will place on Eliquis today Consulted GI and recommended to continue anticoagulation, will continue to monitor H&H Patient with no nausea vomiting and tolerating diet Continue to monitor for alcohol withdrawal Pending orthopedics consult for left fibula fracture Continue home meds and monitor clinically Monitor vitals, adjust BP meds as needed, PT eval 01/24/21: Continue Eliquis for anticoagulation Orthopedics recommended no surgical intervention and continue physical therapy PT consulted and evaluation pending Patient today complaints of suicidal ideation: Reconsult psych 01/25/21: Still complaining of suicidal ideation. Psych consulted placed. History Interval history: No acute overnight events. No acute complaints on encounter, only states that he is suicidal. Hospitalist Physical - Physical exam Narrative exam: GENERAL: well-developed and well-nourished -[place] male lying on bed appeared to be in no discomfort. HEENT: Normocephalic. Atraumatic. No conjunctival congestion or icterus. Patient has moist mucous membranes. NECK: Supple. Trachea midline. CHEST/LUNGS: breathing nonlabored. No wheezes crackles or rhonchi. HEART/CARDIOVASCULAR: Regular in rate and rhythm. S1 and S2 positive. ABDOMEN: Abdomen is soft, nontender. Patient has normal bowel sounds. SKIN: There is no rash. Warm and dry. NEURO: No focal motor deficit. Follows command. MUSCULOSKELETAL: Restricted left foot movement EXTRIMITY: No edema, no cyanosis or clubbing. PSYCH: Cooperative. - Constitutional Vitals: Temp Pulse Resp BP Pulse Ox 98.3 F 72 20 139/80 99 01/25/21 07:28 01/25/21 07:28 01/25/21 07:28 01/25/21 07:28 01/25/21 07:28 HEART Score - HEART Score EKG: Non-specific Age: 45-65 Risk factors: 1-2 risk factors Troponin: Troponin T < 0.010 ng/mL (0.00-0.029) 01/23/21 02:01 Troponin: < normal limit - Critical Actions Critical Actions: 0-3 pts:0.9-1.7%risk of adverse cardiac event.Candidate for discharge Results - Labs CBC & Chem 7: 01/25/21 05:45 01/24/21 09:50 Labs: Laboratory Last Values WBC 6.2 K/mm3 (4.5-11.0) 01/25/21 05:45 RBC 4.23 M/mm3 (3.65-5.03) 01/25/21 05:45 Hgb 9.9 gm/dl (11.8-15.2) L 01/25/21 05:45 Hct 32.1 % (35.5-45.6) L 01/25/21 05:45 MCV 76 fl (84-94) L 01/25/21 05:45 MCH 23 pg (28-32) L 01/25/21 05:45 MCHC 31 % (32-34) L 01/25/21 05:45 RDW 20.6 % (13.2-15.2) H 01/25/21 05:45 Plt Count 382 K/mm3 (140-440) 01/25/21 05:45 Lymph % (Auto) 22.2 % (13.4-35.0) 01/24/21 09:50 [place] % (Auto) 9.7 % (0.0-7.3) H 01/24/21 09:50 Eos % (Auto) 2.3 % (0.0-4.3) 01/24/21 09:50 Baso % (Auto) 0.6 % (0.0-1.8) 01/24/21 09:50 Lymph # (Auto) 1.3 K/mm3 (1.2-5.4) 01/24/21 09:50 [place] # (Auto) 0.6 K/mm3 (0.0-0.8) 01/24/21 09:50 Eos # (Auto) 0.1 K/mm3 (0.0-0.4) 01/24/21 09:50 Baso # (Auto) 0.0 K/mm3 (0.0-0.1) 01/24/21 09:50 Seg Neutrophils % 65.2 % (40.0-70.0) 01/24/21 09:50 Seg Neutrophils # 3.7 K/mm3 (1.8-7.7) 01/24/21 09:50 PT 13.7 Sec. (12.2-14.9) 01/23/21 15:04 INR 1.00 (0.87-1.13) 01/23/21 15:04 APTT 31.1 Sec. (24.2-36.6) 01/23/21 15:04 D-Dimer 3114.60 ng/mlDDU (0-234) H 01/22/21 07:47 Heparin Anti-Xa Level 0.30 U.I./ml (0.3-0.7) 01/23/21 10:45 Sodium 142 mmol/L (137-145) 01/24/21 09:50 Potassium 3.7 mmol/L (3.6-5.0) 01/24/21 09:50 Chloride 105.5 mmol/L (98-107) 01/24/21 09:50 Carbon Dioxide 29 mmol/L (22-30) 01/24/21 09:50 Anion Gap 11 mmol/L 01/24/21 09:50 BUN 5 mg/dL (9-20) L 01/24/21 09:50 Creatinine 0.6 mg/dL (0.8-1.3) L 01/24/21 09:50 Estimated GFR > 60 ml/min 01/24/21 09:50 BUN/Creatinine Ratio 8 % 01/24/21 09:50 Glucose 82 mg/dL (75-100) 01/24/21 09:50 POC Glucose 89 mg/dL (70-105) 01/24/21 21:54 Calcium 8.9 mg/dL (8.4-10.2) 01/24/21 09:50 Ammonia 35.0 umol/L (25-60) 01/22/21 07:48 Troponin T < 0.010 ng/mL (0.00-0.029) 01/23/21 02:01 Amylase 75 units/L (27-131) 01/21/21 23:01 Lipase 13 units/L (13-60) 01/21/21 23:01 Urine Color [place]aphnie (Yellow) 01/22/21 17:58 Urine Turbidity Clear (Clear) 01/22/21 17:58 Urine pH 6.0 (5.0-7.0) 01/22/21 17:58 Ur Specific [place] 1.060 (1.003-1.030) H 01/22/21 17:58 Urine Protein 30 mg/dl mg/dL (Negative) 01/22/21 17:58 Urine Glucose (UA) Neg mg/dL (Negative) 01/22/21 17:58 Urine Ketones Neg mg/dL (Negative) 01/22/21 17:58 Urine Blood Neg (Negative) 01/22/21 17:58 Urine Nitrite Neg (Negative) 01/22/21 17:58 Urine Bilirubin Sm (Negative) 01/22/21 17:58 Urine Ictotest Negative (Negative) 01/22/21 17:58 Urine Urobilinogen 4.0 mg/dL (<2.0) 01/22/21 17:58 Ur Leukocyte Esterase Neg (Negative) 01/22/21 17:58 Urine WBC (Auto) 4.0 /HPF (0.0-6.0) 01/22/21 17:58 Urine RBC (Auto) 3.0 /HPF (0.0-6.0) 01/22/21 17:58 Urine Mucus 3+ /HPF 01/22/21 17:58 Salicylates < 0.3 mg/dL (2.8-20.0) L 01/22/21 07:47 Urine Opiates Screen Presumptive negative 01/22/21 17:58 Urine Methadone Screen Presumptive negative 01/22/21 17:58 Acetaminophen 5.0 ug/mL (10.0-30.0) L 01/22/21 07:47 Ur Barbiturates Screen Presumptive positive 01/22/21 17:58 Ur Phencyclidine Scrn Presumptive negative 01/22/21 17:58 Ur Amphetamines Screen Presumptive negative 01/22/21 17:58 U Benzodiazepines Scrn Presumptive positive 01/22/21 17:58 Urine Cocaine Screen Presumptive positive 01/22/21 17:58 U Marijuana (THC) Screen Presumptive negative 01/22/21 17:58 Drugs of Abuse Note Disclamer 01/22/21 17:58 Plasma/Serum Alcohol < 0.01 % (0-0.07) 01/22/21 07:47 Gal[place]/IV: Voiding Method Urinal Active Medications - Current Medications Current Medications: Generic Name Dose Route Start Last Admin Trade Name Freq PRN Reason Stop Dose Admin Amlodipine Besylate 5 mg 01/23/21 10:00 01/24/21 17:15 Amlodipine 5 Mg Tab PO 5 mg DAILY JOAN Administration Apixaban 10 mg 01/23/21 14:00 01/24/21 22:23 Apixaban 5 Mg Tab PO 01/29/21 22:01 10 mg Q12HR JOAN Administration Protocol Apixaban 5 mg 01/30/21 10:00 Apixaban 5 Mg Tab PO Q12HR JOAN Protocol Chlordiazepoxide HCl 50 mg 01/22/21 06:46 01/24/21 00:40 Chlordiazepoxide 25 Mg Cap PO 50 mg Q1HR PRN Administration CIWA-Ar 8-15 Dextrose 50 gm 01/22/21 06:48 Dextrose 50% In Water (25gm) 50 Ml Vial IV Q30MIN PRN Hypoglycemia Protocol Fluoxetine HCl 20 mg 01/23/21 10:00 01/24/21 09:39 Fluoxetine 20 Mg Cap PO 20 mg QAM JOAN Administration Folic Acid 1 mg 01/23/21 10:00 01/24/21 09:38 Folic Acid 1 Mg Tab PO 1 mg QDAY JOAN Administration Lorazepam 2 mg 01/22/21 06:46 01/25/21 07:58 Lorazepam 2 Mg/Ml Vial IV 2 mg Q1HR PRN Administration CIWA-Ar 8-15 Lorazepam 4 mg 01/22/21 06:46 01/24/21 00:40 Lorazepam 2 Mg/Ml Vial IV 4 mg Q1HR PRN Administration CIWA-Ar 16-25 Lorazepam 4 mg 01/22/21 06:46 Lorazepam 2 Mg/Ml Vial IV Q15MIN PRN CIWA-Ar >25 Morphine Sulfate 2 mg 01/23/21 04:21 01/24/21 22:23 Morphine 2 Mg/1 Ml Inj IV 2 mg Q4H PRN Administration Pain, Moderate (4-6) Multivitamins/Minerals 1 each 01/23/21 10:00 01/24/21 09:39 Multivitamins,Ther W-Minerals Tab PO 1 each QDAY JOAN Administration Oxycodone/Acetaminophen 1 tab 01/23/21 09:30 01/25/21 06:30 Oxycodone /Acetaminophen 5-325mg Tab PO 1 tab Q6H PRN Administration Pain, Moderate (4-6) Pantoprazole Sodium 40 mg 01/22/21 13:00 01/24/21 09:41 Pantoprazole 40 Mg Tab PO 40 mg QDAY JOAN Administration Quetiapine Fumarate 300 mg 01/22/21 22:00 01/24/21 22:23 Quetiapine 100 Mg Tab PO 300 mg QHS JOAN Administration Thiamine HCl 100 mg 01/23/21 10:00 01/24/21 09:41 Thiamine 100 Mg Tab PO 100 mg QDAY JOAN Administration Nutrition/Malnutrition Assess - Dietary Evaluation Nutrition/Malnutrition Findings: Nutrition Notes Start: 01/23/21 14:45 Freq: Status: Active Protocol: Document 01/23/21 14:45 (Rec: 01/23/21 14:51 [id number]) Nutrition Notes 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 Pt reports not eating for 2 days. He ate 15% of breakfast. Burn Absent Trauma Absent Current % PO Negligible Minimum of two criteria No physical signs of malnutrition Interpretation of Weight Loss (non- 1-2% in 1 week severe) #1 Nutrition Diagnosis Inadequate energy intake Etiology etoh dependence As Evidenced by Signs and Symptoms pt not eating for 2 days Is patient on ventilator? No Is Patient Ambulatory and/or Out of Bed No REE-([facility]-confined to bed) 2041.260 Kcal/Kg value to use for calculation 18 Approximate Energy Requirements Using 1618 kcal/Kg Calculation Used for Recommendations Kcal/kg Additional Notes Protein: (0.8-1g/kg AdjBW: 71 kg) 57-71g Fluid: 1 ml/kcal or per MD Nutrition Intervention Change Diet Order: Continue Add Supplement/Snack (indicate name/kcal Ensure Enlive BID /protein ) Provides kCal: 700 Provides Protein (gm) 40 Goal #1 Meet at least 75% of energy and protein needs via PO and ONS Anticipated Discharge Needs: Cardiac Follow-Up By: 01/25/21 Additional Comments FU for intakes and ONS tolerance
[2021-01-25] MEDS: FOLIC ACID 1 MG TAB PO SCH (10:23)
[2021-01-25] MEDS: FLUoxetine 20 MG CAP PO SCH (10:23)
[2021-01-25] MEDS: MULTIVITAMINS,THER W-MINERALS TAB PO SCH (10:23)
[2021-01-25] MEDS: PANTOPRAZOLE 40 MG TAB PO SCH (10:24)
[2021-01-25] MEDS: THIAMINE 100 MG TAB PO SCH (10:26)
[2021-01-25] MEDS: APIXABAN 5 MG TAB PO SCH ×2 (10:26→22:10)
[2021-01-25] MEDS: amLODIPine 5 MG TAB PO SCH (10:27)
[2021-01-25] MEDS: QUEtiapine 100 MG TAB PO SCH (22:10)
[2021-01-25] MEDS: MORPHINE 2 MG/1 ML INJ IV PRN (22:12)
[2021-01-26] MEDS: oxyCODONE /ACETAMINOPHEN 5-325MG TAB PO PRN ×2 (05:40→12:35)
[2021-01-26 06:20] LABS: Hematocrit 30.8 % (35.5-45.6); Hemoglobin 9.6 gm/dl (11.8-15.2)
--- NOTE | 2021-01-26 10:41 | Progress Note ---
Subjective - Reason for Consult Consult date: 01/26/21 Reason for consult: alcohol dependence - Chief Complaint Chief complaint: The patient was seen today. He is a/o x 3. He says he's not too good. He says he hasn't been sleeping and needs to be started back on his seroquel. The patient is currently on seroquel. He says he stopped taking his meds and started back drinking. He says "I started to feel better that's why I stopped taking my meds." Discussed with the patient the need to comply with his treatment regimen. He says he was hearing voices yesterday, but denies today. The patient denies SI/HI at present. REVIEW OF SYSTEMS Constitutional: Negative for weight loss ENT: Negative for stridor Respiratory: Negative for cough or hemoptysis All other systems reviewed and are negative MENTAL STATUS EXAMINATION General Appearance and Behavior: Age appropriate, good hygiene, wearing appropriate clothes, uncooperative polite with questioning. Cooperation: cooperative Psychomotor Behavior: Psychomotor agitation Mood: "not too good" Affect and affective range: congruent to stated mood Thought Process: compulsive Thought Content: None Speech: Normal volume, Regular rate and rhythm Intellectual Functioning: Average Suicidal Ideation: Denied Homicidal Ideation: Denied hallucination: Denies at present Impulse Control: impaired Insight and Judgment: limited Memory: Limited Attention: attentive Orientation: Alert and oriented Diagnoses: Alcohol use Disorder, Moderate- F10.20 Current Visit: Yes Status: Acute RECOMMENDATIONS Continue Home medication Continue with [facility] protocol Risks, benefits and alternatives of medications discussed with the patient, questions answered and consent obtained from patient. PSYCHOTHERAPY: Supportive psychotherapy provided MEDICAL: Per primary team DELIRIUM PRECAUTIONS: Please re-orient patient frequently, keep lights on during the day, and minimize benzodiazepines and opiates as these medications could worsen patient's confusion. APPLICATION SECURITY SPECIALIST: Per medical team DISPOSITION: Do not recommend acute inpatient psychiatric hospitalization at this time will recommend case management. FOLLOW-UP: Will sign off. Thank you for the consult. Please contact with any questions and/or concerns. Mental Status Exam - Vital signs Last Vital Signs Temp 98.5 F 01/25/21 23:41 Pulse 65 01/25/21 23:41 Resp 18 01/26/21 05:40 BP 123/56 01/25/21 23:41 Pulse Ox 95 01/25/21 23:41
[2021-01-26] MEDS: APIXABAN 5 MG TAB PO SCH (11:16)
[2021-01-26] MEDS: PANTOPRAZOLE 40 MG TAB PO SCH (11:16)
[2021-01-26] MEDS: amLODIPine 5 MG TAB PO SCH (11:17)
[2021-01-26] MEDS: FOLIC ACID 1 MG TAB PO SCH (11:17)
[2021-01-26] MEDS: FLUoxetine 20 MG CAP PO SCH (11:17)
[2021-01-26] MEDS: MULTIVITAMINS,THER W-MINERALS TAB PO SCH (11:17)
[2021-01-26] MEDS: THIAMINE 100 MG TAB PO SCH (11:17)
--- NOTE | 2021-01-26 13:28 | Discharge Summary ---
Providers - Providers Date of Admission: 01/22/21 10:17 Date of discharge: 01/26/21 Attending physician: TOM OLEARY MD 01/22/21 10:00 Consult to Physician [CONS] Urgent Comment: Consulting Provider: GRICELDA MUKHERJEE Physician Instructions: Reason For Exam: gi bleed 01/22/21 12:15 Consult to Physician [CONS] Routine Comment: Consulting Provider: AWAIS ODEN Physician Instructions: Reason For Exam: left fibula fracture 01/23/21 14:52 Physical Therapy Evaluation and Treat [CONS] Routine Comment: Reason For Exam: Debility 01/23/21 20:01 Consult to Case Management [CONS] Routine Services Needed at Discharge: Panel Installer Notified:: CASE MANAGEMENT 01/24/21 15:57 Consult to Mental Health [CONS] Routine Reason For Exam: suicidal ideation 01/25/21 17:18 Consult to Physician [CONS] Routine Comment: Consulting Provider: RUSSEL DOUGLAS Physician Instructions: Reason For Exam: suidical ideation Primary care physician: PULMONOLOGIST INTENSIVIST Hospitalization Reason for admission: pulmonary embolism, fibular fracture Condition: Fair Hospital course: Assessment and plan: Acute pulmonary embolism - s/p heparin drip, now on eliquis History of GERD and esophagitis, cont PPI Alcohol dependence with possible withdrawal, on CIWA protocol Nausea vomiting likely due to alcohol withdrawal and underlying GERD - antiemetic as needed Anemia of chronic disease, monitor h/h Acute left fibula fracture, consevative mx per ortho Paranoid schizophrenia, psych consulted SI, will follow psych recommendation Hypertension, stable Dvt Px, on eliquis Daily clinical course: 01/22/21: Admit the patient to telemetry Initiate heparin drip, also placed on Protonix/PPI IV Consult GI as patient with a history of GI bleed esophagitis and GERD ; for anticoagulation recommendation We will consult orthopedics for left fibula fracture We will resume home meds and monitor clinically Monitor vitals, adjust BP meds as needed Monitor H&H, monitor BMP 01/23/21: patient Initiated heparin drip, also placed on Protonix/PPI IV: We will place on Eliquis today Consulted GI and recommended to continue anticoagulation, will continue to monitor H&H Patient with no nausea vomiting and tolerating diet Continue to monitor for alcohol withdrawal Pending orthopedics consult for left fibula fracture Continue home meds and monitor clinically Monitor vitals, adjust BP meds as needed, PT eval 01/24/21: Continue Eliquis for anticoagulation Orthopedics recommended no surgical intervention and continue physical therapy PT consulted and evaluation pending Patient today complaints of suicidal ideation: Reconsult psych 01/25/21: Still complaining of suicidal ideation. Psych consulted placed. 01/26/21: Psychiatry recommends patient adhere to home medication regimen. At the time of their evaluation patient was not suicidal therefore they did not recommend acute inpatient psychiatric hospitalization. Plan for discharge today to home. Disposition: DC-01 TO HOME OR SELFCARE Final Discharge Diagnosis (Prints w/discharge instructions): pulmonary embolism. fibular fracture Time spent for discharge: 55 - Discharge Diagnoses (1) Acute chest pain Status: Acute (2) Acute pulmonary embolism Status: Acute (3) Alcohol dependence Status: Acute (4) Anemia of chronic disease Status: Acute (5) Fracture of distal end of fibula Status: Acute (6) Hallucinations Status: Acute (7) Alcohol abuse Status: Acute (8) Suicidal ideations Status: Acute (9) Pulmonary embolism Status: Acute Core Measure Documentation - Palliative Care Palliative Care/ Comfort Measures: Not Applicable - Core Measures Any of the following diagnoses?: none Exam - Physical Exam Narrative exam: GENERAL: well-developed and well-nourished -[place] male lying on bed appeared to be in no discomfort. HEENT: Normocephalic. Atraumatic. No conjunctival congestion or icterus. Patient has moist mucous membranes. NECK: Supple. Trachea midline. CHEST/LUNGS: breathing nonlabored. No wheezes crackles or rhonchi. HEART/CARDIOVASCULAR: Regular in rate and rhythm. S1 and S2 positive. ABDOMEN: Abdomen is soft, nontender. Patient has normal bowel sounds. SKIN: There is no rash. Warm and dry. NEURO: No focal motor deficit. Follows command. MUSCULOSKELETAL: Restricted left foot movement EXTRIMITY: No edema, no cyanosis or clubbing. PSYCH: Cooperative. - Constitutional Vitals: Temp Pulse Resp BP Pulse Ox 98.5 F 65 18 123/56 95 01/25/21 23:41 01/25/21 23:41 01/26/21 05:40 01/25/21 23:41 01/25/21 23:41 Plan Activity: advance as tolerated Weight Bearing Status: Partial Weight Bearing Diet: regular Durable Medical Equipment Needed Upon Discharge: Crutches Follow up with: PRIMARY CARE,MD [Primary Care Provider] - 3-5 Days Prescriptions: QUEtiapine [SEROquel] 300 mg PO QHS 60 Days #30 tab amLODIPine 5 mg PO DAILY 30 Days #30 tablet Apixaban [Eliquis] 5 mg PO Q12HR 30 Days #60 tablet Apixaban [Eliquis] 10 mg PO Q12HR 3 Days #6 tablet Amlodipine Besylate [Norvasc] 5 mg PO QDAY 30 Days #30 FLUoxetine [PROzac] 20 mg PO QAM #30 capsule
[2021-01-26 13:42] VITALS: BP 138/83
[2021-01-30] MEDS ORDERED: APIXABAN 5 MG TAB PO SCH (10:00)
== END 2021-01-26 15:33 | disposition home or self-care (01) | DRG 176 ==
LOC: ED 22:06 → 4A 01-22 10:17
PROVIDERS: ADMIT Internal Medicine; ATTEND Internal Medicine
DX: I26.99 Other pulmonary embolism without acute cor pulmonale (principal); S82.839A Other fracture of upper and lower end of unspecified fibula, initial encounter for closed fracture; D63.8 Anemia in other chronic diseases classified elsewhere; F10.239 Alcohol dependence with withdrawal, unspecified; K21.9 Gastro-esophageal reflux disease without esophagitis; F20.0 Paranoid schizophrenia; I10 Essential (primary) hypertension; Z79.899 Other long term (current) drug therapy; Z79.891 Long term (current) use of opiate analgesic; Z79.01 Long term (current) use of anticoagulants; Z88.0 Allergy status to penicillin; Z82.49 Family history of ischemic heart disease and other diseases of the circulatory system
CPT/HCPCS: 36415; 70450; 71260; 74019; 74177; 78580; 80048; 80307; 80320; 81001; 82140; 82150; 82565; 82962; 83690; 84484; 85014; 85018; 85025; 85027; 85379; 85520; 85610; 85730; 93005; 93306; 96374; G0378; A9540; C9113; G0480; J1644; J2060; J2270; J2405; J3411; J7030; J7120; Q9967

== ENCOUNTER → 2021-01-27 | Emergency (ER) | payer MEDICAID ==
[2021-01-27 05:40] VITALS: BP 147/84
== END | disposition left against medical advice (07) ==
LOC: ED 05:14
DX: R52 Pain, unspecified (principal); Z53.21 Procedure and treatment not carried out due to patient leaving prior to being seen by health care provider

== ENCOUNTER 2021-02-03 17:10 | Emergency (ER) | payer MEDICAID ==
[2021-02-03] MEDS ORDERED: LACTATED RINGERS 1,000 ML IV ONE (17:31)
[2021-02-03] MEDS ORDERED: PANTOPRAZOLE 40 MG INJ IV ONE (17:31)
[2021-02-03] MEDS ORDERED: HYDROmorphone 1 MG/1 ML INJ IV ONE (17:31)
--- NOTE | 2021-02-03 17:32 | Emergency Department Report ---
ED General Adult HPI - General Chief complaint: Chest Pain Stated complaint: CHEST PAIN PUI?: No Time Seen by Provider: 02/03/21 17:18 Source: patient, EMS ( EMS documentation not available at time of chart dictation ), RN notes reviewed, old records reviewed Mode of arrival: Stretcher Limitations: Physical Limitation - History of Present Illness Initial comments: The patient is a 55-year-old gentleman. I have evaluated this patient in the past. His past medical history includes acute pulmonary embolism, diagnosed at this hospital by myself a few weeks ago, discharged on Eliquis. Also has a history of GERD, esophagitis, supposed to be on proton pump inhibitor, alcohol dependence, anemia of chronic disease, subacute left fibular fracture, paranoid schizophrenia, hypertension. Patient was admitted to this hospital a few weeks ago for all of the aforementioned. He was seen by multiple consulting services, including orthopedics, GI, and psychiatry. He was discharged on January 26. He was discharged with a number of prescriptions. His discharge prescriptions include Seroquel, Norvasc, Eliquis, and fluoxetine. He reports that he was discharged to a friend's house. The patient states he has not taken his medication in about a week. He also states that he is not able to stay at his friend's house. He reports that he is homeless. He presents to the ER today with a primary complaint of nontraumatic chest pain. The chest pain is central and right-sided. It radiates to the back. He denies headache and neck pain. He denies nausea, vomiting and diaphoresis. He denies hematemesis and bright red blood per rectum. He has no new/different shortness of breath. He has left lower extremity swelling which is chronic. He is not homicidal suicidal. He reports no urinary symptoms. -: Gradual, hour(s) Location: chest Radiation: back Quality: aching Consistency: constant Improves with: none Worsens with: none - Related Data Previous Rx's Medication Instructions Recorded Last Taken Type Multivitamin 1 each PO QDAY #30 tablet 01/05/21 Unknown Rx Amlodipine Besylate [Norvasc] 5 mg PO QDAY 30 Days #30 01/26/21 Unknown Rx FLUoxetine [PROzac] 20 mg PO QAM #30 capsule 01/26/21 Unknown Rx QUEtiapine [SEROquel] 300 mg PO QHS 60 Days #30 tab 01/26/21 Unknown Rx Apixaban [Eliquis] 5 mg PO Q12HR 30 Days #60 tablet 02/03/21 Unknown Rx Apixaban [Eliquis] 10 mg PO Q12HR 3 Days #13 tablet 02/03/21 Unknown Rx Famotidine [Pepcid] 20 mg PO BID #20 tablet 02/03/21 Unknown Rx Multivitamin with Folic Acid [Cvs 400 mcg PO QDAY #30 tablet 02/03/21 Unknown Rx One Daily Essential Tablet] amLODIPine 5 mg PO DAILY 30 Days #30 tablet 02/03/21 Unknown Rx Allergies Allergy/AdvReac Type Severity Reaction Status Date / Time Penicillins Allergy Hives Verified 01/09/21 17:23 ED Review of Systems ROS: Stated complaint: CHEST PAIN Other details as noted in HPI Constitutional: denies: fever Eyes: denies: eye discharge ENT: denies: epistaxis Respiratory: denies: cough, wheezing Cardiovascular: chest pain Gastrointestinal: abdominal pain. denies: hematemesis, melena, hematochezia Genitourinary: denies: dysuria Musculoskeletal: back pain, arthralgia, myalgia Neurological: denies: weakness Psychiatric: denies: homicidal thoughts, suicidal thoughts ED Past Medical Hx - Past Medical History Hx Hypertension: Yes Hx Congestive Heart Failure: No Hx Diabetes: Yes (Pt stated"borderline diabetes") Hx Renal Disease: No Hx Arthritis: No Hx Seizures: No Hx Psychiatric Treatment: Yes (Schizophrenia, Paranoid) Hx Asthma: No Hx COPD: No Hx Dementia: No Additional medical history: Umbillical hernia, colon polyps. colaspe lung/ CIRRHOIS, pancreatitis, ETOH abuse, esophagitis, hiatal hernia - Surgical History Hx Cholecystectomy: No Hx Appendectomy: No Additional Surgical History: ankle right surgery, Hernia - Social History Smoking Status: Never Smoker Substance Use Type: Alcohol - Medications Home Medications: Home Medications Medication Instructions Recorded Confirmed Last Taken Type Multivitamin 1 each PO QDAY #30 tablet 01/05/21 01/25/21 Unknown Rx Amlodipine Besylate [Norvasc] 5 mg PO QDAY 30 Days #30 01/26/21 Unknown Rx FLUoxetine [PROzac] 20 mg PO QAM #30 capsule 01/26/21 Unknown Rx QUEtiapine [SEROquel] 300 mg PO QHS 60 Days #30 tab 01/26/21 Unknown Rx Apixaban [Eliquis] 5 mg PO Q12HR 30 Days #60 tablet 02/03/21 Unknown Rx Apixaban [Eliquis] 10 mg PO Q12HR 3 Days #13 tablet 02/03/21 Unknown Rx Famotidine [Pepcid] 20 mg PO BID #20 tablet 02/03/21 Unknown Rx Multivitamin with Folic Acid [Cvs 400 mcg PO QDAY #30 tablet 02/03/21 Unknown Rx One Daily Essential Tablet] amLODIPine 5 mg PO DAILY 30 Days #30 tablet 02/03/21 Unknown Rx ED Physical Exam - General Limitations: No Limitations General appearance: alert, in no apparent distress - Head Head exam: Present: atraumatic, normocephalic - Eye Eye exam: Present: normal appearance, EOMI. Absent: nystagmus - ENT ENT exam: Present: normal exam, normal orophraynx, mucous membranes moist, normal external ear exam - Neck Neck exam: Present: normal inspection, full ROM. Absent: tenderness, meningismus - Respiratory Respiratory exam: Present: normal lung sounds bilaterally. Absent: respiratory distress, wheezes, rales, rhonchi, stridor, decreased breath sounds - Cardiovascular Cardiovascular Exam: Present: normal rhythm, tachycardia, normal heart sounds. Absent: bradycardia, irregular rhythm, systolic murmur, diastolic murmur, rubs, gallop - GI/Abdominal GI/Abdominal exam: Present: soft, tenderness (There is epigastric and suprapubic abdominal tenderness.). Absent: distended, guarding, rebound, rigid, pulsatile mass - Rectal Rectal exam: Present: normal inspection, normal rectal tone, heme (-) stool, other (Chaperoned by Maura House.). Absent: black stool, bloody stool - Extremities Exam Extremities exam: Present: normal inspection, full ROM, pedal edema (Pedal edema in the left lower extremity), other (2+ pulses noted in the bilateral upper and lower extremities. Bilateral upper extremities and right lower extremity nontender. The pelvis is nontender. The distal left lower extremity is tender.). Absent: calf tenderness - Back Exam Back exam: Present: normal inspection. Absent: tenderness, CVA tenderness (R), muscle spasm, paraspinal tenderness, vertebral tenderness - Neurological Exam Neurological exam: Present: alert, oriented X3, other (No facial droop. Tongue midline. Extraocular movements intact bilaterally. Facial sensation intact to light touch in V1, V2, V3 distribution bilaterally. 5 and a 5 strength in 4 extremities. Sensation intact to light touch in 4 extremities.) - Psychiatric Psychiatric exam: Absent: homicidal ideation, suicidal ideation - Skin Skin exam: Present: warm, dry, intact, normal color. Absent: rash ED Course Vital Signs 02/03/21 02/03/21 02/03/21 17:34 17:46 18:00 Temperature Pulse Rate Respiratory Rate Blood Pressure Blood Pressure [Left] O2 Sat by Pulse 97 95 97 Oximetry 02/03/21 02/03/21 02/03/21 18:16 18:17 18:30 Temperature 98.1 F Pulse Rate 98 H 99 H 97 H Respiratory 19 20 14 Rate Blood Pressure 115/72 115/72 Blood Pressure 115/72 [Left] O2 Sat by Pulse 98 96 94 Oximetry 02/03/21 02/03/21 02/03/21 18:46 19:00 19:16 Temperature Pulse Rate 96 H 94 H 88 Respiratory 15 14 14 Rate Blood Pressure 115/72 115/72 117/78 Blood Pressure [Left] O2 Sat by Pulse 95 96 93 Oximetry 02/03/21 02/03/21 02/03/21 19:30 19:46 20:26 Temperature Pulse Rate 87 87 89 Respiratory 9 L 11 L 13 Rate Blood Pressure 117/78 117/78 Blood Pressure [Left] O2 Sat by Pulse 92 95 98 Oximetry 02/03/21 02/03/21 02/03/21 20:30 20:46 21:00 Temperature Pulse Rate 94 H 99 H 98 H Respiratory 16 15 15 Rate Blood Pressure Blood Pressure [Left] O2 Sat by Pulse 98 94 95 Oximetry - Reevaluation(s) Reevaluation #1: 02/03/21 17:46 Differential diagnosis, including but not limited to: Acute coronary syndrome, pulmonary embolism, GERD, gastritis, hiatal hernia, pneumonia, pancreatitis, retroperitoneal bleed, renal colic, homelessness, case management patient, subacute/chronic left lower extremity fracture Assessment and plan: 55-year-old gentleman who is homeless, schizophrenic, but awake, alert, oriented, sober, not homicidal, not suicidal, exhibits lucid decision-making th ought capacity and ability, presenting with a primary complaint of chest pain. In terms of patient's chest pain, obtain EKG, troponin, and CT scan of the chest. Treat his pain. Placed on night monitor. He also has abdominal pain and tenderness. Obtain appropriate laboratory studies, CT scan of the abdomen pelvis. Reassess after initial data points. Have discussed this plan of care with the patient. He has endorsed understanding. 02/03/21 17:47 02/03/21 21:06 Reassessed. Guaiac negative on rectal examination. CT scan of the chest shows known subacute pulmonary embolism, imaging today appears to be similar to prior imaging, as per discussion with interpreting radiologist. Repeat hemoglobin, hematocrit improved when compared to prior. No active bleeding. Troponin negative x2. EKG appears to be unchanged x2. Vital signs are stable at this time, no active vomiting, patient resting comfortably and in no acute distress. Belly soft on repeat exam. Patient asking for a bus pass. He does not appear to be acutely decompensated at this time. He will be given a good Rx affordable prescription card, and also an Eliquis starter pack, good for 1 month. He will be referred to local primary care, hematology oncology, and orthopedics. We will also refer him to a local cardiology. This patient has been observed in this ER for hours without clinical decompensation, and has not been found to have an acute medical issue that would require recurrent hospitalization or admission at this time. He is awake, alert, oriented, exhibits decision-making capacity, and does not meet criteria for 1013 hold or involuntary hold. He can also be given a list of homeless usp resources to follow-up with as an outpatient. Reevaluation #2: 02/03/21 21:15 On 5 mg Eliquis prescription, have written down that patient should start this on February 10. 02/03/21 23:13 When presented with discharge paperwork, the patient then stated he was suicidal. However, when I first evaluated the patient, he was adamant that he is not suicidal. He is also awake, alert, oriented, sober and exhibits decision-making capacity. He does not appear to be acutely psychotic. The patient states that he is homeless. This patient is likely stating this for the purposes obtaining food and usp. Placing this patient on a hold, and initiating 1013 and psychiatric transfer is maladaptive and counterproductive, and will serve to force counterproductive and maladaptive coping mechanisms, such as presenting to the emergency room for food and usp, when the patient is homeless. I have informed the patient that he will be discharged, he has been given outpatient follow-up, homeless usp resources, good Rx card, [employer] starter pack. The patient then stated okay, and asked for a bus pass. ED Medical Decision Making - Lab Data Result diagrams: 02/03/21 20:35 02/03/21 17:43 Vital Signs 02/03/21 18:17 Temperature 98.1 F Pulse Rate 99 H Respiratory 20 Rate Blood Pressure 115/72 [Left] O2 Sat by Pulse 96 Oximetry Lab Results 02/03/21 Range/Units 17:43 Piatt % (Auto) 10.7 H (0.0-7.3) % Eos % (Auto) 1.3 (0.0-4.3) % Piatt # (Auto) 0.9 H (0.0-0.8) K/mm3 Eos # (Auto) 0.1 (0.0-0.4) K/mm3 Baso # (Auto) 0.0 (0.0-0.1) K/mm3 Seg Neutrophils % 69.9 (40.0-70.0) % Seg Neutrophils # 6.1 (1.8-7.7) K/mm3 Lab Results 02/03/21 02/03/21 02/03/21 Range/Units 17:43 17:43 17:43 WBC 8.8 (4.5-11.0) K/mm3 RBC 3.95 (3.65-5.03) M/mm3 Hgb 9.4 L (11.8-15.2) gm/dl Hct 29.7 L (35.5-45.6) % MCV 75 L (84-94) fl MCH 24 L (28-32) pg MCHC 32 (32-34) % RDW 20.6 H (13.2-15.2) % Plt Count 256 (140-440) K/mm3 Lymph % (Auto) 17.6 (13.4-35.0) % Piatt % (Auto) 10.7 H (0.0-7.3) % Eos % (Auto) 1.3 (0.0-4.3) % Baso % (Auto) 0.5 (0.0-1.8) % Lymph # (Auto) 1.5 (1.2-5.4) K/mm3 Piatt # (Auto) 0.9 H (0.0-0.8) K/mm3 Eos # (Auto) 0.1 (0.0-0.4) K/mm3 Baso # (Auto) 0.0 (0.0-0.1) K/mm3 Seg Neutrophils % 69.9 (40.0-70.0) % Seg Neutrophils # 6.1 (1.8-7.7) K/mm3 PT 12.8 (12.2-14.9) Sec. INR 0.90 (0.87-1.13) D-Dimer 688.59 H (0-234) ng/mlDDU Sodium 137 (137-145) mmol/L Potassium 3.7 (3.6-5.0) mmol/L Chloride 98.3 (98-107) mmol/L Carbon Dioxide 27 (22-30) mmol/L Anion Gap 15 mmol/L BUN 13 (9-20) mg/dL Creatinine 0.7 L (0.8-1.3) mg/dL Estimated GFR > 60 ml/min BUN/Creatinine Ratio 19 % Glucose 108 H (75-100) mg/dL Calcium 8.9 (8.4-10.2) mg/dL Magnesium 1.80 (1.7-2.3) mg/dL Total Bilirubin 0.20 (0.1-1.2) mg/dL AST 22 (5-40) units/L ALT 18 (7-56) units/L Alkaline Phosphatase 104 (35-129) units/L Total Creatine Kinase 65 (55-170) units/L Troponin T < 0.010 (0.00-0.029) ng/mL Total Protein 6.5 (6.3-8.2) g/dL Albumin 3.4 L (3.9-5) g/dL Albumin/Globulin Ratio 1.1 % Lipase 12 L (13-60) units/L Salicylates (2.8-20.0) mg/dL Acetaminophen (10.0-30.0) ug/mL 02/03/21 02/03/21 Range/Units 17:43 17:43 WBC (4.5-11.0) K/mm3 RBC (3.65-5.03) M/mm3 Hgb (11.8-15.2) gm/dl Hct (35.5-45.6) % MCV (84-94) fl MCH (28-32) pg MCHC (32-34) % RDW (13.2-15.2) % Plt Count (140-440) K/mm3 Lymph % (Auto) (13.4-35.0) % Piatt % (Auto) (0.0-7.3) % Eos % (Auto) (0.0-4.3) % Baso % (Auto) (0.0-1.8) % Lymph # (Auto) (1.2-5.4) K/mm3 Piatt # (Auto) (0.0-0.8) K/mm3 Eos # (Auto) (0.0-0.4) K/mm3 Baso # (Auto) (0.0-0.1) K/mm3 Seg Neutrophils % (40.0-70.0) % Seg Neutrophils # (1.8-7.7) K/mm3 PT (12.2-14.9) Sec. INR (0.87-1.13) D-Dimer (0-234) ng/mlDDU Sodium (137-145) mmol/L Potassium (3.6-5.0) mmol/L Chloride (98-107) mmol/L Carbon Dioxide (22-30) mmol/L Anion Gap mmol/L BUN (9-20) mg/dL Creatinine (0.8-1.3) mg/dL Estimated GFR ml/min BUN/Creatinine Ratio % Glucose (75-100) mg/dL Calcium (8.4-10.2) mg/dL Magnesium (1.7-2.3) mg/dL Total Bilirubin (0.1-1.2) mg/dL AST (5-40) units/L ALT (7-56) units/L Alkaline Phosphatase (35-129) units/L Total Creatine Kinase (55-170) units/L Troponin T (0.00-0.029) ng/mL Total Protein (6.3-8.2) g/dL Albumin (3.9-5) g/dL Albumin/Globulin Ratio % Lipase (13-60) units/L Salicylates < 0.3 L (2.8-20.0) mg/dL Acetaminophen 5.0 L (10.0-30.0) ug/mL Vital Signs 02/03/21 02/03/21 02/03/21 17:34 17:46 18:00 Temperature Pulse Rate Respiratory Rate Blood Pressure Blood Pressure [Left] O2 Sat by Pulse 97 95 97 Oximetry 02/03/21 02/03/21 02/03/21 18:16 18:17 18:30 Temperature 98.1 F Pulse Rate 98 H 99 H 97 H Respiratory 19 20 14 Rate Blood Pressure 115/72 115/72 Blood Pressure 115/72 [Left] O2 Sat by Pulse 98 96 94 Oximetry 02/03/21 02/03/21 02/03/21 18:46 19:00 19:16 Temperature Pulse Rate 96 H 94 H 88 Respiratory 15 14 14 Rate Blood Pressure 115/72 115/72 117/78 Blood Pressure [Left] O2 Sat by Pulse 95 96 93 Oximetry 02/03/21 02/03/21 02/03/21 19:30 19:46 20:26 Temperature Pulse Rate 87 87 89 Respiratory 9 L 11 L 13 Rate Blood Pressure 117/78 117/78 Blood Pressure [Left] O2 Sat by Pulse 92 95 98 Oximetry 02/03/21 02/03/21 02/03/21 20:30 20:46 21:00 Temperature Pulse Rate 94 H 99 H 98 H Respiratory 16 15 15 Rate Blood Pressure Blood Pressure [Left] O2 Sat by Pulse 98 94 95 Oximetry - EKG Data -: EKG Interpreted by Nd EKG shows normal: sinus rhythm Rate: normal - EKG Data When compared to previous EKG there are: no significant change 02/03/21 18:07 EKG interpreted at 17: 56 Sinus rhythm, rate 99 bpm. Normal axis, QTC 483 ms. Borderline left ventricular hypertrophy. Not a STEMI. Abnormal EKG. Unchanged from prior EKG from 01/22/2021 02/03/21 21:48 EKG #2 interpreted at 21: 33 Sinus rhythm, 88 bpm. Normal axis, normal P wave axis, first-degree AV block, borderline left ventricular hypertrophy. Not a STEMI. Unchanged from prior. - Radiology Data Radiology results: pending, report reviewed, image reviewed [facility] [address] [place] [address] XRay Report Signed Patient: FOREIGN MARS MR#: [id number] : 1965 Acct:[id number] Age/Sex: 55 / M ADM Date: 01/21/21 Loc: ED Attending Dr: Ordering Physician: BETTY GARCIA MD Date of Service: 01/22/21 Procedure(s): XR ankle 2V LT Accession Number(s): [id number] cc: BETTY GARCIA MD Fluoro T allyson In Minutes: LEFT ANKLE 2 VIEW(S) INDICATION / CLINICAL INFORMATION: left ankle pain COMPARISON: None available. FINDINGS: BONES / JOINT(S): There is a comminuted obliquely oriented fracture of the distal fibula above the distal tibiofibular joint. No dislocation is seen. SOFT TISSUES: There is soft tissue swelling in the left lower leg and ankle. ADDITIONAL FINDINGS: None. Signer Name: Duc Abdullahi MD Signed: 01/22/2021 9:07 AM Workstation Name: [id number] Transcribed By: SS Dictated By: Duc Abdullahi MD Electronically Authenticated By: Duc Abdullahi MD Signed Date/Time: 01/22/21906 DD/ 4 CT ABDOMEN AND PELVIS WITH CONTRAST HISTORY: Pt complains of acute abdominal pain. COMPARISON: 01/22/2021 TECHNIQUE: CT images of the abdomen and pelvis were obtained following administration of intravenous contrast. All CT scans at this location are performed using CT dose reduction for ALARA by means of automated exposure control. CONTRAST: 100 ml of intravenous contrast administered. FINDINGS: Abdomen/pelvis: The liver, spleen, adrenal glands, pancreas, gallbladder appear normal. Hiatal hernia is noted. No definite renal stones are seen. No bowel obstruction is identified. Urinary bladder appears normal. No free fluid is seen in the abdomen or pelvis. Fatty infiltration the liver. Portal vein is patent. No acute bone findings are seen. There are ventral abdominal wall hernias containing fat IMPRESSION: 1. At least 2 ventral abdominal wall hernias containing fat. 2. No significant interval change since prior examination. Signer Name: Steven Godoy MD Signed: 02/03/2021 7:39 PM Workstation Name: [id number] CTA CHEST WITH CONTRAST INDICATION / CLINICAL INFORMATION: Pt complains of acute chest pain, Hx of previous PE'(s). TECHNIQUE: Axial CT images were obtained through the chest after injection of IV contrast. 3 plane MIP and/or 3D reconstructions were produced. All CT scans at this location are performed using CT dose reduction for ALARA by means of automated exposure control. COMPARISON: None available. FINDINGS: No focal consolidation pleural effusion. Mild atelectasis is identified. Multiple prominent filling defect is seen in bilateral lower lung pulmonary arteries. No stranding of the right heart is definitely seen. No dominant mediastinal or hilar adenopathy. IMPRESSION: 1. Bilateral lower lung PTE's. Findings called to Dr. Garcia Signer Name: Steven Godoy MD Signed: 02/03/2021 7:36 PM Workstation Name: [id number] Critical care attestation.: If time is entered above; I have spent that time in minutes in the direct care of this critically ill patient, excluding procedure time. ED Disposition Clinical Impression: Acute chest pain, Acute abdominal pain, Noncompliance, Homelessness, History of pulmonary embolism Disposition: -01 TO HOME OR SELFCARE Is pt being admited?: No Does the pt Need Aspirin: No Condition: Good Instructions: Chest Pain (ED) Additional Instructions: Take the Eliquis medication as directed. Patient should take 10 mg, twice daily, for the next 7 days, last dose of 10 mg should be on the morning of February 10, 2021. Then, Eliquis should be decreased to 5 mg, twice daily. Patient is going to be given his Eliquis starter pack, please follow the instructions on the pack to obtain your free 1 month prescription. Patient is also going to be given a good Rx affordable prescription card, which should serve to obtain affordable prescriptions. Do not take Motrin, ibuprofen, Naprosyn, Aleve. Avoid consumption of alcohol. The patient should follow-up with a primary care doctor or nremt within the next 5 to 7 days for subacute pulmonary embolism. Dr. Gundersno is a local cardiac specialist. Dr. Taylor is a local primary care doctor. The patient has a known history of subacute left lower extremity fracture. Please keep the boot in place. Weightbearing as tolerated. Patient may take acetaminophen [id number] as needed for physical pain. Please follow-up with an orthopedist, such as Dr. Quintana, within the next 7 to 10 days. The patient may also follow-up with a primary care doctor or manager hospital for blood clot and chest pain, with either the aforementioned primary care doctor, or manager hospital, such as Dr. Cuevas, within the next 5 to 7 days. Patient is also going to be given a list of homeless shelters that he may follow-up with. Please avoid consumption of tobacco, alcohol and smoke products. Please return to the emergency room right away with new pain, worsened pain, migration of pain, projectile vomiting, change in mental status, confusion, inability to tolerate liquid feeds, new, worsened or different symptoms not present on the initial emergency room evaluation. Prescriptions: amLODIPine 5 mg PO DAILY 30 Days #30 tablet Multivitamin with Folic Acid [[facility]vs One Daily Essential Tablet] 400 mcg PO QDAY #30 tablet Apixaban [Eliquis] 10 mg PO Q12HR 3 Days #13 tablet Apixaban [Eliquis] 5 mg PO Q12HR 30 Days #60 tablet Famotidine [Pepcid] 20 mg PO BID #20 tablet Referrals: NED TAYLOR MD [Staff Physician] - 3-5 Days RICHARD CUEVAS MD [Staff Physician] - 7-10 days APRIL GUNDERSON MD [Referring] - 7-10 days AWAIS QUINTANA MD [Staff Physician] - 7-10 days Heart Score - HEART Score History: Slightly suspicious EKG: Non-specific Age: 45-65 Risk factors: 1-2 risk factors Troponin: < normal limit HEART Score: 3 - EKG Read Time Time EKG Completed: 17:56 EKG Read Time: 17:56 - Critical Actions Critical Actions: 0-3 pts:0.9-1.7%risk of adverse cardiac event.Candidate for discharge
[2021-02-03] MEDS ORDERED: chlordiazePOXIDE 25 MG CAP PO PRN ×2 (17:34)
[2021-02-03] MEDS ORDERED: LORazepam 2 MG TAB PO PRN (17:34)
[2021-02-03] MEDS ORDERED: LORazepam 2 MG/ML VIAL IV PRN (17:34)
[2021-02-03 18:22] LABS: Basophils % (Auto) 0.5 % (0.0-1.8); Eosinophils # (Auto) 0.1 K/mm3 (0.0-0.4); Eosinophils % (Auto) 1.3 % (0.0-4.3); Hematocrit 29.7 % (35.5-45.6); Hemoglobin 9.4 gm/dl (11.8-15.2); Lymphocytes # (Auto) 1.5 K/mm3 (1.2-5.4); Lymphocytes % (Auto) 17.6 % (13.4-35.0); Mean Corpuscular HGB Conc 32 % (32-34); Mean Corpuscular Volume 75 fl (84-94); Monocytes # (Auto) 0.9 K/mm3 (0.0-0.8); Monocytes % (Auto) 10.7 % (0.0-7.3); Platelet Count 256 K/mm3 (140-440); Red Blood Count 3.95 M/mm3 (3.65-5.03)
[2021-02-03 18:27] LABS: Red Cell Distribution Width 20.6 % (13.2-15.2)
[2021-02-03 18:34] LABS: INR 0.9 (0.87-1.13)
[2021-02-03 18:42] LABS: Alanine Aminotransferase 18 units/L (7-56); Albumin 3.4 g/dL (3.9-5); Blood Urea Nitrogen 13 mg/dL (9-20); Calcium 8.9 mg/dL (8.4-10.2); Hemolysis Index 4
[2021-02-03 18:44] LABS: BUN/Creatinine Ratio 19
--- NOTE | 2021-02-03 20:40 | Cat Scan Report ---
CTA CHEST WITH CONTRAST INDICATION / CLINICAL INFORMATION: Pt complains of acute chest pain, Hx of previous PE'(s). TECHNIQUE: Axial CT images were obtained through the chest after injection of IV contrast. 3 plane DE P and/or 3D reconstructions were produced. All CT scans at this location are performed using CT dose reduction for ALARA by means of automated exposure control. COMPARISON: None available. FINDINGS: No focal consolidation pleural effusion. Mild atelectasis is identified. Multiple prominent filling d efect is seen in bilateral lower lung pulmonary arteries. No stranding of the right heart is definite ly seen. No dominant mediastinal or hilar adenopathy. IMPRESSION: 1. Bilateral lower lung PTE's. Findings called to Dr. Garcia Signer Name: Steven Godoy MD Signed: 02/03/2021 8:36 PM Workstation Name: [id number]
--- NOTE | 2021-02-03 20:43 | Cat Scan Report ---
CT ABDOMEN AND PELVIS WITH CONTRAST HISTORY: Pt complains of acute abdominal pain. COMPARISON: 01/22/2021 TECHNIQUE: CT images of the abdomen and pelvis were obtained following administration of intravenous contrast. All CT scans at this location are performed using CT dose reduction for ALARA by means of automated exposure control. CONTRAST: 100 ml of intravenous contrast administered. FINDINGS: Abdomen/pelvis: The liver, spleen, adrenal glands, pancreas, gallbladder appear normal. Hiatal herni a is noted. No definite renal stones are seen. No bowel obstruction is identified. Urinary bladder ap pears normal. No free fluid is seen in the abdomen or pelvis. Fatty infiltration the liver. Portal ve in is patent. No acute bone findings are seen. There are ventral abdominal wall hernias containing fa t IMPRESSION: 1. At least 2 ventral abdominal wall hernias containing fat. 2. No significant interval change since prior examination. Signer Name: Steven Godoy MD Signed: 02/03/2021 8:39 PM Workstation Name: [id number]
[2021-02-03] MEDS ORDERED: amLODIPine 5 MG TAB PO STA (20:56)
[2021-02-03 21:00] LABS: Hematocrit 30.4 % (35.5-45.6); Hemoglobin 9.7 gm/dl (11.8-15.2)
[2021-02-03] MEDS ORDERED: APIXABAN 5 MG TAB PO STA (21:00)
[2021-02-03 21:04] VITALS: BP 117/78
--- NOTE | 2021-02-04 11:53 | Electrocardiograph Report ---
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
--- NOTE | 2021-02-04 11:54 | Electrocardiograph Report ---
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
== END 2021-02-03 23:53 | disposition home or self-care (01) ==
LOC: ED 17:10
DX: R07.9 Chest pain, unspecified (principal); R10.9 Unspecified abdominal pain; F25.9 Schizoaffective disorder, unspecified; I10 Essential (primary) hypertension; E11.9 Type 2 diabetes mellitus without complications; Z59.0 Homelessness; Z86.711 Personal history of pulmonary embolism; Z91.19 Patient's noncompliance with other medical treatment and regimen; Z88.0 Allergy status to penicillin; Z79.899 Other long term (current) drug therapy; Z98.890 Other specified postprocedural states
CPT/HCPCS: 36415; 71275; 74177; 80053; 82550; 83690; 83735; 84484; 85014; 85018; 85025; 85379; 85610; 93005; 96361; 96374; 96375; 99284; C9113; J1170; J7120; Q9967; 80320; G0480

== ENCOUNTER 2021-02-21 23:27 | Emergency (ER) | payer MEDICAID ==
[2021-02-22 02:11] VITALS: BP 130/74
--- NOTE | 2021-02-22 10:04 | Emergency Department Report ---
ED General Adult HPI - General Chief complaint: Abdominal Pain Stated complaint: CHEST PAIN NON CARDIAC Time Seen by Provider: 02/22/21 10:00 Source: patient Mode of arrival: Ambulatory Limitations: No Limitations - History of Present Illness Initial comments: Complaint: "I need Protonix." HPI: This is a 55-year-old male with history of schizophrenia, alcohol dependence, pancreatitis, GERD who requests medication for GERD. He states he has had bad reflux. He denies suicidal homicidal ideation. He denies hallucinations. -: Gradual, days(s) (Several days) Location: chest Consistency: constant Improves with: none Worsens with: none Associated Symptoms: denies other symptoms - Related Data Previous Rx's Medication Instructions Recorded Last Taken Type Multivitamin 1 each PO QDAY #30 tablet 01/05/21 Unknown Rx Amlodipine Besylate [Norvasc] 5 mg PO QDAY 30 Days #30 01/26/21 Unknown Rx FLUoxetine [PROzac] 20 mg PO QAM #30 capsule 01/26/21 Unknown Rx QUEtiapine [SEROquel] 300 mg PO QHS 60 Days #30 tab 01/26/21 Unknown Rx Apixaban [Eliquis] 5 mg PO Q12HR 30 Days #60 tablet 02/03/21 Unknown Rx Apixaban [Eliquis] 10 mg PO Q12HR 3 Days #13 tablet 02/03/21 Unknown Rx Famotidine [Pepcid] 20 mg PO BID #20 tablet 02/03/21 Unknown Rx Multivitamin with Folic Acid [[facility] 400 mcg PO QDAY #30 tablet 02/03/21 Unknown Rx One Daily Essential Tablet] amLODIPine 5 mg PO DAILY 30 Days #30 tablet 02/03/21 Unknown Rx Pantoprazole [Protonix] 40 mg PO QDAY #30 tablet 02/22/21 Unknown Rx Allergies Allergy/AdvReac Type Severity Reaction Status Date / Time Penicillins Allergy Hives Verified 01/09/21 17:23 ED Review of Systems ROS: Stated complaint: CHEST PAIN NON CARDIAC Other details as noted in HPI Comment: All other systems reviewed and negative Constitutional: denies: fever, malaise Respiratory: denies: cough, shortness of breath Cardiovascular: chest pain Gastrointestinal: nausea. denies: abdominal pain ED Past Medical Hx - Past Medical History Previous Medical History?: Yes Hx Hypertension: Yes Hx Congestive Heart Failure: No Hx Diabetes: Yes (Pt stated"borderline diabetes") Hx Renal Disease: No Hx Arthritis: No Hx Seizures: No Hx Psychiatric Treatment: Yes (Schizophrenia, Paranoid) Hx Asthma: No Hx COPD: No Hx Dementia: No Additional medical history: Umbillical hernia, colon polyps. colaspe lung/ CIRRHOIS, pancreatitis, ETOH abuse, esophagitis, hiatal hernia - Surgical History Past Surgical History?: Yes Hx Cholecystectomy: No Hx Appendectomy: No Additional Surgical History: ankle right surgery, Hernia - Social History Smoking Status: Never Smoker Substance Use Type: Alcohol - Medications Home Medications: Home Medications Medication Instructions Recorded Confirmed Last Taken Type Multivitamin 1 each PO QDAY #30 tablet 01/05/21 01/25/21 Unknown Rx Amlodipine Besylate [Norvasc] 5 mg PO QDAY 30 Days #30 01/26/21 Unknown Rx FLUoxetine [PROzac] 20 mg PO QAM #30 capsule 01/26/21 Unknown Rx QUEtiapine [SEROquel] 300 mg PO QHS 60 Days #30 tab 01/26/21 Unknown Rx Apixaban [Eliquis] 5 mg PO Q12HR 30 Days #60 tablet 02/03/21 Unknown Rx Apixaban [Eliquis] 10 mg PO Q12HR 3 Days #13 tablet 02/03/21 Unknown Rx Famotidine [Pepcid] 20 mg PO BID #20 tablet 02/03/21 Unknown Rx Multivitamin with Folic Acid [[facility] 400 mcg PO QDAY #30 tablet 02/03/21 Unknown Rx One Daily Essential Tablet] amLODIPine 5 mg PO DAILY 30 Days #30 tablet 02/03/21 Unknown Rx Pantoprazole [Protonix] 40 mg PO QDAY #30 tablet 02/22/21 Unknown Rx ED Physical Exam - General Limitations: No Limitations General appearance: alert, in no apparent distress - Head Head exam: Present: atraumatic, normocephalic - Eye Eye exam: Present: normal appearance - ENT ENT exam: Present: mucous membranes moist - Neck Neck exam: Present: normal inspection, full ROM - Respiratory Respiratory exam: Present: normal lung sounds bilaterally. Absent: respiratory distress, wheezes, rales, rhonchi, stridor - Cardiovascular Cardiovascular Exam: Present: regular rate, normal rhythm, normal heart sounds. Absent: systolic murmur, diastolic murmur, rubs, gallop - GI/Abdominal GI/Abdominal exam: Present: soft, normal bowel sounds. Absent: distended, tenderness, guarding, rebound - Rectal Rectal exam: Present: deferred - Extremities Exam Extremities exam: Present: normal inspection, other (Patient has walking boot left lower extremity) - Back Exam Back exam: Present: normal inspection - Neurological Exam Neurological exam: Present: alert, oriented X3 - Psychiatric Psychiatric exam: Present: normal affect, normal mood - Skin Skin exam: Present: warm, dry, intact, normal color. Absent: rash ED Course Vital Signs 02/22/21 01:34 Temperature 97.8 F Pulse Rate 91 H Respiratory 18 Rate Blood Pressure 130/74 O2 Sat by Pulse 94 Oximetry ED Medical Decision Making - Medical Decision Making GERD: I provided prescription for Protonix. Patient explains that his Medicaid is current. He will be able to afford his medication. Critical care attestation.: If time is entered above; I have spent that time in minutes in the direct care of this critically ill patient, excluding procedure time. ED Disposition Clinical Impression: GERD (gastroesophageal reflux disease) Disposition: HOME / SELF CARE / HOMELESS Is pt being admited?: No Does the pt Need Aspirin: No Condition: Stable Instructions: Food Choices for Gastroesophageal Reflux Disease, Adult Prescriptions: Pantoprazole [Protonix] 40 mg PO QDAY #30 tablet Referrals: NED MATHIS MD [Staff Physician] - 3-5 Days
== END 2021-02-22 10:08 | disposition home or self-care (01) ==
LOC: ED 23:27
DX: K21.9 Gastro-esophageal reflux disease without esophagitis (principal); I10 Essential (primary) hypertension; E11.8 Type 2 diabetes mellitus with unspecified complications; F20.9 Schizophrenia, unspecified; K42.9 Umbilical hernia without obstruction or gangrene; K44.9 Diaphragmatic hernia without obstruction or gangrene; K85.90 Acute pancreatitis without necrosis or infection, unspecified; K20.90 Esophagitis, unspecified without bleeding; F19.10 Other psychoactive substance abuse, uncomplicated; Z98.890 Other specified postprocedural states; Z88.0 Allergy status to penicillin
CPT/HCPCS: 99282

== ENCOUNTER 2021-02-24 09:03 | Emergency (ER) | payer MEDICAID ==
[2021-02-25 12:38] VITALS: BP 125/85
== END 2021-02-25 12:39 | disposition home or self-care (01) ==
LOC: ED 09:03
DX: U07.1 COVID-19 (principal); F20.9 Schizophrenia, unspecified; I10 Essential (primary) hypertension; E11.8 Type 2 diabetes mellitus with unspecified complications; F10.20 Alcohol dependence, uncomplicated
CPT/HCPCS: 36415; 80053; 80307; 81001; 85025; 99284; U0003; 80320; G0480